=== PATIENT | female | born 1940 | race Caucasian/White ===

== ENCOUNTER 2017-11-02 08:15 | Outpatient (RCR) | payer MEDICARE, OTHER, SELFPAY ==
[2017-10-31 14:26] LABS: International Normalized Ratio 2.2; Prothrombin Time (Protime)PT. 23.8 SECONDS (11.7-14.9)
[2017-11-02 10:21] LABS: International Normalized Ratio 2.4; Prothrombin Time (Protime)PT. 25.3 SECONDS (11.7-14.9)
== END 2017-11-02 08:30 | disposition home or self-care (01) ==
LOC: MTLAB 08:15
PROVIDERS: Family Provider Family Medicine; PCP Family Medicine; Visit Provider Internal Medicine Cardiovascular Disease
DX: I48.0 Paroxysmal atrial fibrillation (principal); Z79.899 Other long term (current) drug therapy
CPT/HCPCS: 36415; 85610

== ENCOUNTER 2018-01-01 13:48 | Outpatient (RCR) | payer MEDICARE, OTHER, SELFPAY ==
[2018-01-01 15:42] LABS: International Normalized Ratio 2.5; Prothrombin Time (Protime)PT. 26.7 SECONDS (11.7-14.9)
== END 2018-01-01 14:00 | disposition home or self-care (01) ==
LOC: MTLAB 13:48
PROVIDERS: Family Provider Family Medicine; PCP Family Medicine; Visit Provider Internal Medicine Cardiovascular Disease
DX: I48.0 Paroxysmal atrial fibrillation (principal); Z79.01 Long term (current) use of anticoagulants
CPT/HCPCS: 85610

== ENCOUNTER 2018-01-30 09:10 | Outpatient (RCR) | payer MEDICARE, OTHER, SELFPAY ==
[2018-01-30 10:29] LABS: International Normalized Ratio 2.4; Prothrombin Time (Protime)PT. 26.3 SECONDS (11.7-14.9)
[2018-01-30 11:17] LABS: AST(SGOT) 30 U/L (15-37); Alanine Aminotransfer ALT/SGPT 25 U/L (13-56); Albumin, Serum 3.8 g/dL (3.2-5.0); Alkaline Phosphatase 45 U/L (45-117); Bilirubin, Direct 0.12 mg/dL (0.00-0.30); Cholesterol 268 mg/dL (200); High Density Lipoprotein 32 mg/dL; Protein, Total 7.8 g/dL (6.4-8.2); Triglycerides 260 mg/dL; Very Low Density Lipoprotein 52 mg/dL (5-40)
[2018-02-25 12:43] LABS: International Normalized Ratio 2.6; Prothrombin Time (Protime)PT. 27.9 SECONDS (11.7-14.9)
== END 2018-01-30 09:30 | disposition home or self-care (01) ==
LOC: MTLAB 09:10
PROVIDERS: Family Provider Family Medicine; PCP Family Medicine; Visit Provider Internal Medicine Cardiovascular Disease
DX: I48.0 Paroxysmal atrial fibrillation (principal); Z79.01 Long term (current) use of anticoagulants; E78.5 Hyperlipidemia, unspecified; Z79.899 Other long term (current) drug therapy
CPT/HCPCS: 36415; 80061; 80076; 85610

== ENCOUNTER → 2018-02-19 07:54 | Outpatient (CLI) | payer MEDICARE, OTHER, SELFPAY ==
--- NOTE | 2018-02-19 07:57 | BI_ITS ---
MAMMOGRAPHY - BILATERAL SCREENING 3-D ALEAH SYNTHESIS REASON FOR EXAM: Female, 77 years old. Bilateral Screening 3-D tomosynthesis PERTINENT HISTORY: No significant family history. TECHNIQUE: 2-D mammograms and 3-D Aleah synthesis of the breast (s) were performed. CAD was performed. COMPARISON: February 06, 2017. FINDINGS: The breast composition is heterogeneously dense that can obscure small breast masses. Scattered benign calcifications are seen. No dense spiculated masses or suspicious microcalcifications are identified. No architectural distortion is identified. There is no skin thickening or retraction. There has been no significant change since the prior study. BI/SCREENING MAMM (CAD), BILAT IMPRESSION: No mammographic signs of malignancy. Routine yearly mammograms recommended. ASSESSMENT CATEGORY: BIRADS Category 1: Negative. A letter regarding these results will be sent to the patient by the facility within 30 days. FOLLOW UP RECOMMENDATION: Yearly follow up mammogram recommended. (A) Approximately 10% of breast cancers are not detected by mammography. A normal mammogram should not delay biopsy of a clinically suspicious abnormality. Electronically Signed: Scott Rivera MD at 7:55 EDT , Service support ,
== END ==
PROVIDERS: Family Provider Family Medicine; PCP Family Medicine; Visit Provider Family Medicine
DX: Z12.31 Encounter for screening mammogram for malignant neoplasm of breast (principal)
CPT/HCPCS: 77063; 77067

== ENCOUNTER → 2018-03-11 16:54 | Outpatient (CLI) | payer MEDICARE, OTHER, SELFPAY ==
--- NOTE | 2018-03-11 17:00 | RAD_ITS ---
STUDY: X-RAY CHEST REASON FOR EXAM: Female, 77 years old. Trauma 2 weeks ago now with painful breathing TECHNIQUE: Frontal and lateral views of the chest. COMPARISON: 03/12/2017 FINDINGS: Median sternotomy wires. Dual-chamber pacemaker on the left. The lungs are clear and expanded. There is no demonstrated pleural abnormality. Stable cardiac silhouette. Normal mediastinum and linda. Normal visualized pulmonary arteries. Normal visualized aortic arch and descending thoracic aorta. There are diffuse degenerative changes of the visualized thoracic spine. Normal visualized ribs, clavicles, and shoulders. There is no demonstrated abnormality of the visualized soft tissue structures of the upper abdomen. RAD/Chest PA and Lateral IMPRESSION: No acute pulmonary findings. Electronically Signed: Yemi White MD at 5:39 EDT Tel , Service support ,
--- NOTE | 2018-03-11 17:01 | RAD_ITS ---
STUDY: X-RAY - UNILATERAL RIBS ( LEFT ) REASON FOR EXAM: Female, 77 years old. Trauma 2 weeks ago. TECHNIQUE: 4 view(s) of the ribs. COMPARISON: March 12, 2017 FINDINGS: There is a pacer device in place. There are sternotomy wires in place. The bones are diffusely demineralized. Normal visualized ribs without a demonstrated fracture. The visualized lung is clear and expanded. RAD/Ribs Unil 2V No CXR IMPRESSION: Within normal limits x-ray examination of the ribs. Electronically Signed: Rufina Paul MD at 8:41 EDT Tel , Service support ,
== END ==
PROVIDERS: Family Provider Family Medicine; PCP Family Medicine; Visit Provider Family Medicine
DX: S20.212A Contusion of left front wall of thorax, initial encounter (principal); X58.XXXA Exposure to other specified factors, initial encounter; R09.1 Pleurisy
CPT/HCPCS: 71046; 71100

== ENCOUNTER 2018-03-27 08:24 | Outpatient (RCR) | payer MEDICARE, OTHER, SELFPAY ==
[2018-03-27 10:24] LABS: International Normalized Ratio 2.5; Prothrombin Time (Protime)PT. 26.7 SECONDS (11.7-14.9)
== END 2018-03-27 09:00 | disposition home or self-care (01) ==
LOC: MTLAB 08:24
PROVIDERS: Family Provider Family Medicine; PCP Family Medicine; Visit Provider Internal Medicine Cardiovascular Disease
DX: I48.0 Paroxysmal atrial fibrillation (principal); Z79.01 Long term (current) use of anticoagulants
CPT/HCPCS: 36415; 85610

== ENCOUNTER → 2018-04-15 10:33 | Outpatient (CLI) | payer MEDICARE, OTHER, SELFPAY ==
[2018-04-15 12:44] LABS: BNP,B-Type NATRIURETIC PEPTIDE 298.5 pg/mL (0-100)
== END ==
PROVIDERS: Family Provider Family Medicine; PCP Family Medicine; Visit Provider Physician Assistant Medical
DX: R06.02 Shortness of breath (principal)
CPT/HCPCS: 36415; 83880

== ENCOUNTER → 2018-04-19 14:14 | Outpatient (CLI) | payer MEDICARE, OTHER, SELFPAY ==
[2018-04-19 14:22] LABS: Mucous, Urine 0 SEEN /hpf (<or=2+)
[2018-04-19 15:16] LABS: Color, Urine Yellow (Yellow); Glucose, Dipstick Normal (Normal); Ketone-Dipstick Negative (Negative); Leukocyte Esterase-Dipstick 500 /ul (Negative); Nitrite-Dipstick Negative (Negative); Occult Blood-Urine 10 /ul (Negative); Protein-Dipstick Negative (Negative); Urine Bilirubin Dipstick Negative (Negative); Urine Clarity Clear (Clear); Urine Urobilinogen Normal (Normal)
[2018-04-19 15:24] LABS: Hematocrit 39.8 % (37-47); Hemoglobin 12.8 g/dl (12.0-15.0); Mean Corp Hgb Conc 32.2 g/gl (32-36); Mean Corpuscular Hgb 30.3 pg (27.0-32.0); Mean Corpuscular Volume 94.3 fL (81-99); Mean Platelet Vol. 10.4 fl (6.2-12.0); Platelet Count 154 K/mm3 (150-450); RBC Distribution Width CV 13.8 % (11.6-14.6); RBC Distribution Width SD 47.3 fl (35.1-43.9); Red Blood Count 4.22 M/mm3 (4.2-5.4); White Blood Count 6.5 K/mm3 (4.4-11.0)
[2018-04-19 15:27] LABS: Bacteria 1+ /hpf (None Seen); Red Blood Cells-Urine 0-5 SEEN /hpf (0-5); Squamous Epithelial Cells - UA 10-25 SEEN /hpf (5-10); White Blood Cells 10-25 SEEN /hpf (0-5)
[2018-04-19 15:28] LABS: Anion Gap 6 (5-15); BUN 21 mg/dL (7-18); BUN/Creat Ratio 17.8 RATIO (10-20); Calcium,Total 9.2 mg/dL (8.5-10.1); Chloride 104 mmol/L (98-107); Creatinine, Serum 1.18 mg/dL (0.55-1.02); EST Glomerular Filtration Rate 47 mL/min (>60); Est Glom Filt Rate - Afr Amer 57 mL/min (>60); Glucose 92 mg/dL (74-106); Potassium 4.1 mmol/L (3.5-5.1); Sodium Level 138 mmol/L (136-145)
[2018-04-19 15:39] LABS: Scan Indicated on CBC? Y/N NO
[2018-04-19 15:49] LABS: International Normalized Ratio 2.6; Prothrombin Time (Protime)PT. 27.8 SECONDS (11.7-14.9)
== END ==
PROVIDERS: Family Provider Family Medicine; PCP Family Medicine; Visit Provider Nurse Practitioner Family
DX: I25.10 Atherosclerotic heart disease of native coronary artery without angina pectoris (principal); I44.2 Atrioventricular block, complete; E78.5 Hyperlipidemia, unspecified; R06.02 Shortness of breath; Z95.0 Presence of cardiac pacemaker; Z95.5 Presence of coronary angioplasty implant and graft; Z79.01 Long term (current) use of anticoagulants
CPT/HCPCS: 36415; 80048; 81001; 85027; 85610

== ENCOUNTER → 2018-04-29 11:16 | Day surgery (SDC) | payer MEDICARE, OTHER, SELFPAY ==
[2018-04-26 07:10] VITALS: BMI 29.9
[2018-04-29 11:45] LABS: Prothrombin Time Fingerstick 14.2 SEC (11.9-14.4)
--- NOTE | 2018-04-29 14:08 | CL.IE_ITS ---
Patient: KIM CAZARES Study Date: 04/29/2018 Performing: Elijah West MD : 1940 Age: 77 Gender: female PROCEDURES PERFORMED XO38-OBJGIEL REMOVAL+REPLACEMENT PACER-DUAL LEAD INDICATIONS Atrial fibrillation and complete heart block PROCEDURE DETAILS The patient was brought to the Catheterization Lab in the postabsorptive nonsedated state. Informed consent was obtained prior to the procedure. Local anesthetic was given subcutaneously to the left up per chest area with Lidocaine 2%. Incision was made to the left upper chest. PPM generator was remove d. PPM atrial lead testing performed. PPM ventricular lead testing performed. PPM ventricular lead te sting performed. PPM generator was attached to the lead(s) and inserted into the pocket. Device pocke t was irrigated with antibiotic. Subcutaneous closure was completed with 3-0 Vicryl. Skin closure was completed with 4-0 Vicryl. Steri-strips applied to left subclavicular incision. Instrument, sponge, and needle counts were noted to be normal. The patient tolerated the procedure well. 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: [employer], Model # L111 , Serial # [id number] DEVICE PARAMETERS ATRIAL LEAD PARAMETERS: P wave- 0.7 (mV) threshold- AFIB (V) impedence- 543 (OHMS) 10V test, no diaphragmatic capture VENTRICULAR LEAD PARAMETERS: R wave- PACED (mV) Current- 1.8 (mA) threshold- 0.7 (V) impedence- 400 (OHMS) 10V test, no diaphragmatic capture DEVICE PARAMETERS: Mode- DDDR Lower rate- 70 Upper rate- 130 CONCLUSIONS / RECOMMENDATIONS Device Conclusions: Successful implantation of a dual chamber pacemaker battery change and replacemen t Device Recommendations: Follow up with Primary Care Physician PROCEDURE MEDICATIONS Versed 1 mg IV Versed 1 mg IV Oxygen: 2 L/min via nasal cannula Antibiotic given in appropriate timeframe. Ancef 2 Gm IV @ 04/29/2018 13:00:15 Signed By Elijah West MD On 04/29/2018 14:08:25 Elijah West MD
== END ==
PROVIDERS: Family Provider Family Medicine; PCP Family Medicine; Visit Provider Internal Medicine Cardiovascular Disease
DX: Z45.010 Encounter for checking and testing of cardiac pacemaker pulse generator [battery] (principal); I25.10 Atherosclerotic heart disease of native coronary artery without angina pectoris; I48.2 Chronic atrial fibrillation; I10 Essential (primary) hypertension; E78.00 Pure hypercholesterolemia, unspecified; J44.9 Chronic obstructive pulmonary disease, unspecified; M19.90 Unspecified osteoarthritis, unspecified site; N39.0 Urinary tract infection, site not specified; B96.89 Other specified bacterial agents as the cause of diseases classified elsewhere; R06.02 Shortness of breath; Z79.01 Long term (current) use of anticoagulants; Z95.5 Presence of coronary angioplasty implant and graft; Z79.82 Long term (current) use of aspirin; Z79.899 Other long term (current) drug therapy; Z87.891 Personal history of nicotine dependence
CPT/HCPCS: 33228; 36416; 85610; 99152; 99153; J7040; J7050

== ENCOUNTER 2018-05-17 08:28 | Outpatient (RCR) | payer MEDICARE, OTHER, SELFPAY ==
[2018-05-09 10:17] LABS: International Normalized Ratio 1.5; Prothrombin Time (Protime)PT. 17.7 SECONDS (11.7-14.9)
[2018-05-17 10:45] LABS: International Normalized Ratio 1.9; Prothrombin Time (Protime)PT. 21.9 SECONDS (11.7-14.9)
== END 2018-05-17 10:00 ==
LOC: MTLAB 08:28
PROVIDERS: Family Provider Family Medicine; PCP Family Medicine; Visit Provider Internal Medicine Cardiovascular Disease
DX: I48.0 Paroxysmal atrial fibrillation (principal); Z79.01 Long term (current) use of anticoagulants
CPT/HCPCS: 36415; 85610

== ENCOUNTER 2018-06-27 08:39 | Outpatient (RCR) | payer MEDICARE, OTHER, SELFPAY ==
[2018-06-04 11:01] LABS: International Normalized Ratio 1.5; Prothrombin Time (Protime)PT. 17.9 SECONDS (11.7-14.9)
[2018-06-13 10:26] LABS: International Normalized Ratio 1.7; Prothrombin Time (Protime)PT. 19.9 SECONDS (11.7-14.9)
[2018-06-21 10:32] LABS: International Normalized Ratio 1.7; Prothrombin Time (Protime)PT. 19.8 SECONDS (11.7-14.9)
[2018-06-27 10:23] LABS: Prothrombin Time (Protime)PT. 22.8 SECONDS (11.7-14.9)
== END 2018-06-27 10:00 | disposition home or self-care (01) ==
LOC: MTLAB 08:39
PROVIDERS: Family Provider Family Medicine; PCP Family Medicine; Visit Provider Internal Medicine Cardiovascular Disease
DX: I48.0 Paroxysmal atrial fibrillation (principal); Z79.01 Long term (current) use of anticoagulants
CPT/HCPCS: 36415; 85610

== ENCOUNTER 2018-07-11 08:37 | Outpatient (RCR) | payer MEDICARE, OTHER, SELFPAY ==
[2018-07-11 10:10] LABS: International Normalized Ratio 2.1; Prothrombin Time (Protime)PT. 23.2 SECONDS (11.7-14.9)
== END 2018-07-11 10:00 | disposition home or self-care (01) ==
LOC: MTLAB 08:37
PROVIDERS: Family Provider Family Medicine; PCP Family Medicine; Visit Provider Internal Medicine Cardiovascular Disease
DX: I48.0 Paroxysmal atrial fibrillation (principal); Z79.01 Long term (current) use of anticoagulants
CPT/HCPCS: 36415; 85610

== ENCOUNTER → 2018-08-14 06:21 | Outpatient (CLI) | payer MEDICARE, OTHER, SELFPAY ==
--- NOTE | 2018-08-14 06:24 | ECHOD_ITS ---
Reason For Study: ATRIAL FIB-FLUTTER Procedure This was a 2D Doppler, Color Flow transthoracic echocardiogram. Exam performed in department. Left Ventricle Normal LV size. The estimated ejection fraction is 45 %. No regional wall motion abnormalities noted. Right Ventricle ICD or pacer leads identified within the right ventricle. Moderately dilated right ventricle. Normal systolic function. Atria The left atrium is moderately enlarged. The right atrium is severely enlarged. ICD or pacer leads identified within the right atrium. Mitral Valve There is mild to moderate mitral annular calcification. Mild-Moderate (1-2+) eccentric mitral valve insufficiency. Tricuspid Valve Normal tricuspid valve. Moderately severe (3+) tricuspid valve insufficiency. Pulmonary artery systolic pressure is 27 mmHg. Aortic Valve Trisinus/trileaflet aortic valve. Mild focal aortic valve calcification. Peak aortic valve gradient 16 mmHg. Mean aortic valve gradient 9 mmHg. Mild aortic stenosis. Calculated aortic valve area (continuity equation) is 1.4 cm2. Mild (1+) eccentric aortic valve insufficiency. Great Vessels Normal aortic root. The pulmonary artery is normal size. Pericardium/Pleural No pericardial effusion. MMode/2D Measurements & Calculations LVIDd: 3.9 cm IVSd: 1.1 cm LVOT diam: 2.0 cm LVIDs: 2.8 cm LVPWd: 1.2 cm LVOT area: 3.1 cm2 RVDd: 3.9 cm FS: 28.0 % Ao root diam: 3.4 cm LAV(MOD-bp): 124.3 ml LVAd ap4: 26.4 cm2 LA dimension: 4.4 cm LAV(MOD-bp) Indexed: 62.4 ml/m2 EDV(MOD-sp4): 78.1 ml LAV(MOD-sp2): 115.0 ml EDV(sp4-el): 79.5 ml LAV(MOD-sp4): 119.1 ml LVAs ap4: 17.4 cm2 ESV(MOD-sp4): 37.6 ml ESV(sp4-el): 37.6 ml EF(MOD-sp4): 51.9 % EF(sp4-el): 52.7 % SV(MOD-sp4): 40.5 ml SV(sp4-el): 41.9 ml LA A4 area: 33.8 cm2 RA A4 area: 40.0 cm2 Time Measurements MV dec time: 0.19 sec Doppler Measurements & Calculations MV E max umer: 136.5 cm/sec Lat Peak E' Umer: 4.0 cm/sec Med Peak E' Umer: 6.7 cm/sec MV A max umer: 65.9 cm/sec E/E' lat: 34.1 E/E' med: 20.3 MV E/A: 2.1 Ao V2 max: 204.2 cm/sec AI max umer: 443.4 cm/sec LV V1 max: 96.1 cm/sec Ao max P.7 mmHg AI max P.6 mmHg LV V1 max P.7 mmHg Ao V2 mean: 139.4 cm/sec AI dec slope: 234.6 cm/sec2 LV V1 mean P.9 mmHg Ao mean P.9 mmHg AI P1/2t: 553.6 msec LV V1 mean: 65.3 cm/sec Ao V2 VTI: 43.5 cm LV V1 VTI: 20.8 cm FINN(I,D): 1.5 cm2 FINN(V,D): 1.4 cm2 SV(LVOT): 63.7 ml PA V2 max: 83.1 cm/sec TR max umer: 242.3 cm/sec TR max P.5 mmHg Interpretation Summary Normal LV size. The estimated ejection fraction is 45 %. No regional wall motion abnormalities noted. The left atrium is moderately enlarged. The right atrium is severely enlarged. Mild-Moderate (1-2+) eccentric mitral valve insufficiency. Mild aortic stenosis. Ordering Physician: ELIJAH ARREOLA Referring Physician: TODD CARBAJAL
--- NOTE | 2018-08-14 09:21 | STRESSREP ---
Stress Test Report Pharmacologic myocardial perfusion stress test. 78-year-old lady with a history of cardiomyopathy. Stress protocol: Resting EKG demonstrates atrial fibrillation with a rate of 70 bpm status post pacemaker placement. 0.4 mg of regadenoson was infused per usual protocol followed by rapid intravenous saline flush injection continuous quality assurance monitor body was performed the maximum heart rate attained was 71 bpm which was 49% maximum predicted heart rate the maximum workload was 1 metabolic equivalent. Patient maintained atrial fibrillation with a paced rhythm throughout the recording. At rest there were no ST or T wave changes noted suggest abnormal flow reserve at peak infusion no ST or T wave changes were noted suggest abnormal flow reserve. The resting blood pressure 118/86 with a final blood pressure 118/76. Myocardial perfusion protocol. 14.1 mCi of technetium 99m sestamibi was injected at rest. 0.4 mg of regadenoson was infused per usual protocol peak infusion 44.7 mCi of technetium 99m sestamibi was injected stress images were obtained stress and rest images were reconstructed and compared in the short axis vertical long horizontal long axis. Gated images were also obtained Perfusion SPECT analysis: Review of the stress images demonstrate normal uptake of tracer noted in all areas of the myocardium. The resting images similarly demonstrate normal uptake of tracer noted in all areas of the myocardium. No areas of reversibility are noted suggest ischemia. Gated SPECT analysis: The gated ejection fraction is noted to be 63%. Conclusion: Normal pharmacologic myocardial perfusion stress test. Preserved ejection fraction.
== END ==
PROVIDERS: Family Provider Family Medicine; PCP Family Medicine; Referring Provider Internal Medicine Cardiovascular Disease; Visit Provider Internal Medicine Cardiovascular Disease
DX: I10 Essential (primary) hypertension (principal); I42.9 Cardiomyopathy, unspecified; R06.00 Dyspnea, unspecified; Z79.01 Long term (current) use of anticoagulants; Z95.0 Presence of cardiac pacemaker
CPT/HCPCS: 78452; 93017; 93306; A9500; A4216; J2785

== ENCOUNTER → 2018-08-15 16:28 | Outpatient (CLI) | payer MEDICARE, OTHER, SELFPAY ==
--- NOTE | 2018-08-15 16:30 | RAD_ITS ---
STUDY: X-RAY CHEST REASON FOR EXAM: Female, 78 years old. Dyspnea on exertion. TECHNIQUE: Frontal and lateral views of the chest. # of Images: 2 COMPARISON: March 11, 2018 FINDINGS: There is no new focal consolidation. Sternal cerclage wires are present from a prior sternotomy. There is cardiomegaly. Normal mediastinum and linda. Normal visualized pulmonary arteries. There is atherosclerotic calcification of the aortic arch with tortuosity. Normal visualized thoracic spine. Normal visualized ribs, clavicles, and shoulders. There is no demonstrated abnormality of the visualized soft tissue structures of the upper abdomen. RAD/Chest PA and Lateral IMPRESSION: Cardiomegaly. Electronically Signed: Rufina Paul MD at 17:17 EDT Tel , Service support ,
[2018-08-15 17:47] LABS: Absolute Lymphocyte Count 1.35 X10^3/ul (0.83-4.51); Absolute Neutrophil Count 3.6 X10^3/uL (2.0-7.7); Basophil# 0.02 X10^3/uL; Basophil% 0.3 % (0-1); Eosinophil# 0.13 X10^3/uL; Eosinophils% 2.1 % (0-5); Hemoglobin 11.4 g/dl (12.0-15.0); Lymphocyte # 1.35 X10^3/ul (4.0); Lymphocyte % 21.8 % (19-41); Mean Corp Hgb Conc 31.7 g/gl (32-36); Mean Corpuscular Hgb 30.2 pg (27.0-32.0); Mean Corpuscular Volume 95.5 fL (81-99); Mean Platelet Vol. 10.8 fl (6.2-12.0); Monocyte# 1.05 X10^3/uL; Monocyte% 16.9 % (0-10); Neutrophil # 3.64 X10^3/uL (2.7-7.7); Neutrophil % 58.7 % (47-70); Platelet Count 121 K/mm3 (150-450); RBC Distribution Width CV 14.5 % (11.6-14.6); RBC Distribution Width SD 49.4 fl (35.1-43.9); Red Blood Count 3.77 M/mm3 (4.2-5.4); White Blood Count 6.2 K/mm3 (4.4-11.0)
[2018-08-15 17:53] LABS: POSITIVE COUNT NO; POSITIVE DIFFERENTIAL NO; POSITIVE MORPHOLOGY NO
[2018-08-15 18:01] LABS: Anion Gap 7 (5-15); BUN 20 mg/dL (7-18); BUN/Creat Ratio 20.2 RATIO (10-20); Calcium,Total 8.8 mg/dL (8.5-10.1); Chloride 105 mmol/L (98-107); Creatinine, Serum 0.99 mg/dL (0.55-1.02); EST Glomerular Filtration Rate 58 mL/min (>60); Est Glom Filt Rate - Afr Amer 70 mL/min (>60); Glucose 94 mg/dL (74-106); Potassium 3.7 mmol/L (3.5-5.1); Sodium Level 141 mmol/L (136-145)
== END ==
PROVIDERS: Family Provider Family Medicine; PCP Family Medicine; Referring Provider Physician Assistant Medical; Visit Provider Physician Assistant Medical
DX: I25.10 Atherosclerotic heart disease of native coronary artery without angina pectoris (principal); I11.9 Hypertensive heart disease without heart failure; R06.09 Other forms of dyspnea
CPT/HCPCS: 36415; 71046; 80048; 83880; 85025

== ENCOUNTER 2018-08-20 09:17 | Emergency (ER) | payer MEDICARE, OTHER, SELFPAY ==
[2018-08-20 09:18] VITALS: BP 153/86; PULSE 70; RESP 20; TEMP 36.6; O2SAT 98; BMI 29.7
--- NOTE | 2018-08-20 09:33 | EKG12_ITS ---
Test Reason : OTHER PAIN Blood Pressure : / mmHG Vent. Rate : 071 BPM Atrial Rate : 052 BPM P-R Int : 000 ms QRS Dur : 166 ms QT Int : 490 ms P-R-T Axes : 000 -87 083 degrees QTc Int : 532 ms Ventricular-paced rhythm with occasional Premature ventricular complexes Abnormal ECG Confirmed by JAIRON OLIVIA, LETICIA ([id number]), tape editor VALENTINE GASTELUM ([id number]) on 08/21/2018 1:32:23 PM Referred By: SIMONA Confirmed By:LETICIA DE LA O MD
--- NOTE | 2018-08-20 09:36 | ED.VISSUMM ---
- ER Visit Summary Date of Service: 08/20/18 Chief Complaint: Neck and back pain History of Present Illness: The patient is a 78 F who states that last night after going out to dinner she developed the pain on the right side of her neck going down her back to by her shoulder blade area. She states that she does not recall doing anything. She wonders if she swallowed something and it still there. She has not had any drooling or inability to keep liquids down. Patient states there is no significant pain with movement of her arm but there is discomfort with movement of the neck. No fevers. Physical Examination: Afebrile vital signs stable Gen: Well-nourished well-developed Head: Normocephalic atraumatic Eyes: Perrl EOMI ENT: TMs clear no rhinorrhea moist mucous membranes Neck: Supple no lymphadenopathy no JVD nontender CVS: Regular rate rhythm no murmurs normal S1-S2 Respiratory: No distress clear to auscultation bilaterally chest nontender Abdomen: Soft nontender nondistended normal bowel sounds no masses Back: Patient has tenderness to palpation along the trapezius muscle on the right particularly just lateral to midline as well as in the rhomboid area. There is no rash noted. Extremity: Nontender no edema Skin: Normal color no rash Neuro: alert orientated ?3 CN II-XII intact normal strength sensation reflexes gait cerebellar Psych: Normal affect normal mood Test Results: EKG demonstrates a ventricular paced rhythm with a PVC. CBC and chemistry showed a creatinine 1.01 and glucose of 112. Liver enzymes total bilirubin of 1.2. INR subtherapeutic at 1.8 and troponin less than 0.015. Emergency Department Course and Treatment: Due to a subtherapeutic INR with her history a CT Radha of the chest was done to rule out pulmonary embolism no obvious pulmonary embolism was noted. Patient had has radiographic evidence of pulmonary hypertension. She tells me she is following up to have pulmonary function testing done recently had what sounds like an echocardiogram. I think the patient's pain is most consistent with a trapezius muscle spasm. It is reproducible. It is in the distribution of the trapezius muscle. Patient will use Tylenol and heat and gentle stretching follow-up with her doctors. She was advised to call her doctor for follow-up with her INR and to take an extra dose of her Coumadin tonight. The patient does note that her INR is very up and down and she has a hard time managing it and she is not 100% sure of what dosing she is on. Impression: 1. Trapezius muscle spasm 2. Subtherapeutic INR This note was generated with [employer] dictation software. It may contain incorrect words, spelling, and punctuation that were not noted in review of the chart prior to signing ED Disposition - Plan for ED Patient: Disposition: Home or Assisted Living Chief Complaint: Other, Pain/Inj Instructions: ED Spasm Back No Trauma Referrals: Davis Lopez DO [Primary Care Provider] - 3-5 Days if not improving
[2018-08-20 09:57] LABS: Absolute Lymphocyte Count 1.27 X10^3/ul (0.83-4.51); Absolute Neutrophil Count 5.7 X10^3/uL (2.0-7.7); Basophil# 0.03 X10^3/uL; Basophil% 0.4 % (0-1); Eosinophil# 0.11 X10^3/uL; Eosinophils% 1.3 % (0-5); Hematocrit 39.4 % (37-47); Hemoglobin 12.7 g/dl (12.0-15.0); International Normalized Ratio 1.8; Lymphocyte # 1.27 X10^3/ul (4.0); Lymphocyte % 15.5 % (19-41); Mean Corp Hgb Conc 32.2 g/gl (32-36); Mean Corpuscular Hgb 30.7 pg (27.0-32.0); Mean Corpuscular Volume 95.2 fL (81-99); Mean Platelet Vol. 10.3 fl (6.2-12.0); Monocyte# 1.11 X10^3/uL; Monocyte% 13.5 % (0-10); Neutrophil # 5.66 X10^3/uL (2.7-7.7); Neutrophil % 68.8 % (47-70); Platelet Count 138 K/mm3 (150-450); Prothrombin Time (Protime)PT. 21.3 SECONDS (11.7-14.9); RBC Distribution Width CV 14.3 % (11.6-14.6); RBC Distribution Width SD 46.8 fl (35.1-43.9); Red Blood Count 4.14 M/mm3 (4.2-5.4); White Blood Count 8.2 K/mm3 (4.4-11.0)
[2018-08-20 09:58] LABS: POSITIVE COUNT NO; POSITIVE DIFFERENTIAL NO; POSITIVE MORPHOLOGY NO
[2018-08-20 10:09] LABS: ALB/GLOB Ratio 0.9 RATIO (0.9-2.4); AST(SGOT) 24 U/L (15-37); Alanine Aminotransfer ALT/SGPT 24 U/L (13-56); Albumin, Serum 3.8 g/dL (3.2-5.0); Alkaline Phosphatase 74 U/L (45-117); Anion Gap 8 (5-15); BUN 19 mg/dL (7-18); BUN/Creat Ratio 18.8 RATIO (10-20); Calcium,Total 9.1 mg/dL (8.5-10.1); Chloride 103 mmol/L (98-107); Creatinine, Serum 1.01 mg/dL (0.55-1.02); EST Glomerular Filtration Rate 56 mL/min (>60); Est Glom Filt Rate - Afr Amer 68 mL/min (>60); Estimated Creatinine Clearance 45.36 ml/min; Globulin 4.2 g/dL (2.2-4.2); Glucose 112 mg/dL (74-106); Lipase 258 U/L (73-393); Potassium 3.8 mmol/L (3.5-5.1); Sodium Level 139 mmol/L (136-145)
--- NOTE | 2018-08-20 10:19 | CT_ITS ---
STUDY: CTA CHEST REASON FOR EXAM: Female, 78 years old. Right neck pain. CABG, pacer, shortness of breath. RADIATION DOSAGE (If Supplied By Facility): CTDIvol = ( 18.50 ) mGy, DLP = ( 745.25 ) mGycm TECHNIQUE: The examination was performed with the intravenous administration of 100ml ml of Isovue 370 contrast material. Post-processing of the angiographic images was performed, with multiplanar reformation and 3D reconstruction. Individualized dose optimization techniques were used for this CT. COMPARISON: Chest x-ray 08/15/2018 FINDINGS: Supraclavicular: No acute process. Thoracic body wall soft tissues: No acute process. Upper abdomen: Limited dilation, no acute process. Osseous structures: Median sternotomy, osteopenia, mild kyphoscoliosis and thoracic spondylosis. Mediastinum: There is mild thickening of the wall of the middle and distal 3rd of the esophagus which could reflect the presence of reflux esophagitis. Correlate for any symptoms of GERD. Subcarinal lymph node to the right side of the esophagus measuring about 15 mm short axis, enlarged. A few small lymph nodes are present as well. Lungs: Small layering right pleural effusion, mild right lung base atelectasis, generalized hyperlucency suggesting underlying COPD without boris features of centrilobular or paraseptal emphysema. Unremarkable airways. No suspicious focal lesions. Heart: Moderate cardiomegaly with ectasia in particular of the right atrium and right ventricle. There is ectasia of the intracardiac IVC and hepatic veins, and of the SVC and a pattern consistent with elevated right heart pressures. Three-vessel coronary calcifications. Mitral valve annulus calcifications and aortic valve annulus and leaflets calcifications. Aorta: Nondilated, moderate arch atherosclerosis. Pulmonary arteries: Mildly ectatic central pulmonary arteries, main pulmonary artery 3.1 cm. There is no large central pulmonary embolus and there is no convincing evidence of acute peripheral pulmonary embolus. CT/CTA Chest W/WO Contrast IMPRESSION: Small right pleural effusion. There are no other features of pulmonary edema. Prominent enlargement of the right heart, vena cava, hepatic veins, evidence of elevated right heart pressures. Mild ectasia of the central pulmonary arteries. There is no evidence of acute pulmonary embolism. Electronically Signed: Maico Arenas, at 11:26 EDT Tel , Service support ,
[2018-08-20 10:59] VITALS: BP 146/81; PULSE 70; RESP 18; O2SAT 96
[2018-08-20 12:09] VITALS: BP 141/98; PULSE 70; RESP 26; O2SAT 97
== END 2018-08-20 12:10 | disposition home or self-care (01) ==
PROVIDERS: Emergency Provider Emergency Medicine; Family Provider Family Medicine; PCP Family Medicine
DX: M62.830 Muscle spasm of back (principal); I25.10 Atherosclerotic heart disease of native coronary artery without angina pectoris; I48.0 Paroxysmal atrial fibrillation; I10 Essential (primary) hypertension; F32.9 Major depressive disorder, single episode, unspecified; Z95.0 Presence of cardiac pacemaker; Z95.1 Presence of aortocoronary bypass graft; Z79.01 Long term (current) use of anticoagulants; Z87.891 Personal history of nicotine dependence; Z79.82 Long term (current) use of aspirin; Z79.899 Other long term (current) drug therapy
CPT/HCPCS: 71275; 80053; 83690; 84484; 85025; 85610; 93005; 99284; Q9967; A4216

== ENCOUNTER 2018-08-22 08:36 | Outpatient (RCR) | payer MEDICARE, OTHER, SELFPAY ==
[2018-08-01 10:17] LABS: International Normalized Ratio 3.6
[2018-08-08 10:32] LABS: International Normalized Ratio 2.5; Prothrombin Time (Protime)PT. 27.1 SECONDS (11.7-14.9)
[2018-08-22 10:25] LABS: Prothrombin Time (Protime)PT. 22.7 SECONDS (11.7-14.9)
== END 2018-08-22 10:00 | disposition home or self-care (01) ==
LOC: MTLAB 08:36
PROVIDERS: Family Provider Family Medicine; PCP Family Medicine; Referring Provider Internal Medicine Cardiovascular Disease; Visit Provider Internal Medicine Cardiovascular Disease
DX: I48.0 Paroxysmal atrial fibrillation (principal); Z79.01 Long term (current) use of anticoagulants
CPT/HCPCS: 36415; 85610

== ENCOUNTER → 2018-08-23 07:41 | Outpatient (CLI) | payer MEDICARE, OTHER, SELFPAY ==
--- NOTE | 2018-08-25 06:36 | PFT ---
INTRODUCTION: The patient is a 78-year-old female that presents for pulmonary function testing secondary to a diagnosis of dyspnea on exertion. Respiratory therapy reports good patient effort. Bronchodilators were used during testing. INTERPRETATION: Forced expiration spirometry demonstrates the presence of a mild large airways obstructive ventilatory defect. There was no significant response to aerosolized bronchodilators. Spirograms are of fair quality do not plateau indicating slow emptying of the lungs. Body plethysmography was performed and reveals an elevated RV to 149% of predicted, indicative of underlying air trapping. Diffusing capacity by single breath CO is within normal limits at 82% of predicted. When compared to previous pulmonary function studies dated February 2012, there has been a 9% reduction in FEV1 and a 10% reduction in DLCO. IMPRESSION: These pulmonary function studies demonstrate the presence of an irreversible mild large airways obstructive ventilatory defect with associated air trapping and preserved diffusing capacity.
== END ==
PROVIDERS: Family Provider Family Medicine; PCP Family Medicine; Referring Provider Physician Assistant Medical; Visit Provider Physician Assistant Medical
DX: R06.09 Other forms of dyspnea (principal)
CPT/HCPCS: 94060; 94726; 94729

== ENCOUNTER → 2018-09-05 08:35 | Outpatient (CLI) | payer MEDICARE, OTHER, SELFPAY ==
[2018-09-05 10:39] LABS: Prothrombin Time (Protime)PT. 22.7 SECONDS (11.7-14.9)
[2018-09-05 10:50] LABS: AST(SGOT) 22 U/L (15-37); Alanine Aminotransfer ALT/SGPT 25 U/L (13-56); Albumin, Serum 3.8 g/dL (3.2-5.0); Alkaline Phosphatase 60 U/L (45-117); Bilirubin, Direct 0.23 mg/dL (0.00-0.30); Cholesterol 115 mg/dL (200); Globulin 3.9 g/dL (2.2-4.2); High Density Lipoprotein 32 mg/dL; Protein, Total 7.7 g/dL (6.4-8.2); Triglycerides 147 mg/dL; Very Low Density Lipoprotein 29 mg/dL (5-40)
[2018-09-05 11:04] LABS: Anion Gap 6 (5-15); BUN 26 mg/dL (7-18); BUN/Creat Ratio 27.1 RATIO (10-20); Calcium,Total 8.9 mg/dL (8.5-10.1); Chloride 105 mmol/L (98-107); Creatinine, Serum 0.96 mg/dL (0.55-1.02); EST Glomerular Filtration Rate 60 mL/min (>60); Est Glom Filt Rate - Afr Amer 73 mL/min (>60); Glucose 95 mg/dL (74-106); Sodium Level 139 mmol/L (136-145)
== END ==
PROVIDERS: Physician Assistant Medical; Family Provider Family Medicine; PCP Family Medicine; Referring Provider Internal Medicine Cardiovascular Disease; Visit Provider Internal Medicine Cardiovascular Disease
DX: I48.0 Paroxysmal atrial fibrillation (principal); I42.9 Cardiomyopathy, unspecified; E78.5 Hyperlipidemia, unspecified; Z79.01 Long term (current) use of anticoagulants; Z79.899 Other long term (current) drug therapy
CPT/HCPCS: 36415; 80048; 80061; 80076; 85610

== ENCOUNTER 2018-09-23 08:58 | Outpatient (RCR) | payer MEDICARE, OTHER, SELFPAY ==
[2018-09-17 11:47] VITALS: BMI 29.7
[2018-09-23 10:24] LABS: Prothrombin Time (Protime)PT. 22.7 SECONDS (11.7-14.9)
== END 2018-09-23 09:00 | disposition home or self-care (01) ==
LOC: MTLAB 08:58
PROVIDERS: Family Provider Family Medicine; PCP Family Medicine; Referring Provider Internal Medicine Cardiovascular Disease; Visit Provider Internal Medicine Cardiovascular Disease
DX: I48.0 Paroxysmal atrial fibrillation (principal); Z79.01 Long term (current) use of anticoagulants
CPT/HCPCS: 36415; 85610

== ENCOUNTER 2018-12-29 01:21 | Inpatient (IN) | payer MEDICARE, OTHER, SELFPAY ==
[2018-09-17 11:47] VITALS: BMI 29.7
[2018-12-29] VITALS (9 sets, daily range): BP systolic 108–155; BP diastolic 52–67; PULSE 68–71; RESP 16–18; TEMP 36.6–37.1; O2SAT 94–98; BMI 31.5; BMI 31.1
--- NOTE | 2018-12-29 01:39 | RAD_ITS ---
STUDY: X-RAY CHEST REASON FOR EXAM: Female, 78 years old. Left-sided chest pain status post fall TECHNIQUE: Single AP portable view of the chest. COMPARISON: 08/15/2018 FINDINGS: The lungs are clear and expanded. There is no demonstrated pleural abnormality. Mild cardiomegaly, unchanged. Median sternotomy wires and coronary artery bypass graft clips noted. Left subclavian pacemaker in place. Normal mediastinum and linda. Normal visualized pulmonary arteries. There is atherosclerotic calcification of the aortic arch . There are diffuse degenerative changes of the visualized thoracic spine. Normal visualized ribs, clavicles, and shoulders. There is no demonstrated abnormality of the visualized soft tissue structures of the upper abdomen. RAD/Chest 1 View (Portable) IMPRESSION: Stable mild cardiomegaly Electronically Signed: Todd Sargent MD at 2:30 EST Tel , Service support ,
--- NOTE | 2018-12-29 01:39 | RAD_ITS ---
STUDY: X-RAY - LEFT HIP REASON FOR EXAM: Female, 78 years old. Left hip pain status post fall TECHNIQUE: 2 views of the hip. COMPARISON: None. FINDINGS: Left hip is in normal alignment with mild degenerative change. Visualized left femur is unremarkable. The right hip is in normal alignment. Minimal degenerative spurring. Visualized right femur is normal. The sacrum is intact. There is degenerative change of the visualized lower lumbar spine. Bilateral iliac wings and right pubic rami are intact. There are acute fractures of the left superior and inferior pubic rami. Bilateral ischial tuberosities are intact. Soft tissues are normal. RAD/HIP, UNI W/ Pelvis 2-3 Views IMPRESSION: 1. Left superior and inferior pubic rami fractures. 2. Mild bilateral hip osteoarthritic change, left greater than right. Electronically Signed: Todd Sargent MD at 2:33 EST Tel , Service support ,
[2018-12-29] MEDS: Ondansetron 4 MG/2 ML Vial IV (01:51)
[2018-12-29] MEDS: Morphine 4 MG/ML Syringe IV (01:52)
--- NOTE | 2018-12-29 02:10 | ED.VISSUMM ---
- ER Visit Summary Date of Service: 12/29/18 Chief Complaint: Hip pain History of Present Illness: The patient is a 78 F presents to the emergency department hip pain. The patient was recently vacationing in [place]. She had mechanical fall in a parking lot. She had a fracture in her pelvis and fracture of her wrist. She is been on oral analgesics with little improvement. She actually just flew back tonight to the [facility] where she lives. She states she has been unable to control her pain and unable to ambulate because of it. She was very interested in a rehab stay. The patient does take Coumadin for history of atrial fibrillation. She has been off of it since . She did have her wrist fracture casted by orthopedics. She was also told that her pelvic fracture was nonoperative. She is just concerned because even with the medications, she is having a difficult time caring for herself. Physical Examination: Vital signs reviewed General: Well-nourished, well-developed Head: Normocephalic, atraumatic Eyes: Pupils equal and reactive, extraocular muscles intact Neck, supple, no lymphadenopathy Heart: Regular rate and rhythm Respiratory: No distress, clear bilaterally Abdomen: Soft, nontender, nondistended, no peritoneal signs Back: Nontender Extremities: Nontender, no edema, no cords Skin: Normal color no rash Neuro: Alert and oriented, no focal or lateralizing deficits Test Results: [] Emergency Department Course and Treatment: [I was unable to load the plain films of the patient's wrist on 3 separate computers. I did repeat the x-rays of the pelvis. These do demonstrate minimally displaced inferior and superior pubic rami fractures. Her labs are unremarkable. I do feel that the patient is likely going to need a short-term rehab as she has a broken wrist and broken pelvis. She is having a difficult time walking around. She is also on Coumadin for history of atrial fibrillation and is a fall risk with her fractures. Patient was discussed with the hospitalist will be admitted at this time.] Treatment Plan: [] Disposition: Admission Impression: 1. Left wrist fracture 2. Left inferior and superior pubic rami fracture This note was generated with [employer] dictation software. It may contain incorrect words, spelling, and punctuation that were not noted in review of the chart prior to signing ED Disposition - Plan for ED Patient: Referrals: Davis Lopez DO [Primary Care Provider] -
[2018-12-29 02:13] LABS: Absolute Lymphocyte Count 0.92 X10^3/ul (0.83-4.51); Absolute Neutrophil Count 5.9 X10^3/uL (2.0-7.7); Basophil# 0.02 X10^3/uL; Basophil% 0.2 % (0-1); Eosinophil# 0.11 X10^3/uL; Eosinophils% 1.3 % (0-5); Hemoglobin 11.9 g/dl (12.0-15.0); Lymphocyte # 0.92 X10^3/ul (4.0); Lymphocyte % 11.2 % (19-41); Mean Corp Hgb Conc 32.2 g/gl (32-36); Mean Corpuscular Hgb 30.7 pg (27.0-32.0); Mean Corpuscular Volume 95.6 fL (81-99); Mean Platelet Vol. 9.6 fl (6.2-12.0); Monocyte# 1.17 X10^3/uL; Monocyte% 14.3 % (0-10); Neutrophil # 5.93 X10^3/uL (2.7-7.7); Neutrophil % 72.6 % (47-70); Platelet Count 214 K/mm3 (150-450); RBC Distribution Width CV 14.5 % (11.6-14.6); RBC Distribution Width SD 50.3 fl (35.1-43.9); Red Blood Count 3.87 M/mm3 (4.2-5.4); White Blood Count 8.2 K/mm3 (4.4-11.0)
[2018-12-29 02:16] LABS: POSITIVE COUNT NO; POSITIVE DIFFERENTIAL NO; POSITIVE MORPHOLOGY NO
[2018-12-29 02:21] LABS: ALB/GLOB Ratio 0.9 RATIO (0.9-2.4); AST(SGOT) 23 U/L (15-37); Alanine Aminotransfer ALT/SGPT 18 U/L (13-56); Albumin, Serum 3.7 g/dL (3.2-5.0); Alkaline Phosphatase 64 U/L (45-117); Anion Gap 9 (5-15); BUN 29 mg/dL (7-18); BUN/Creat Ratio 27.9 RATIO (10-20); Calcium,Total 9.1 mg/dL (8.5-10.1); Chloride 103 mmol/L (98-107); Creatinine, Serum 1.04 mg/dL (0.55-1.02); EST Glomerular Filtration Rate 55 mL/min (>60); Est Glom Filt Rate - Afr Amer 66 mL/min (>60); Globulin 4.1 g/dL (2.2-4.2); Glucose 122 mg/dL (74-106); Protein, Total 7.8 g/dL (6.4-8.2); Sodium Level 138 mmol/L (136-145)
[2018-12-29 02:33] LABS: International Normalized Ratio 1.6; Prothrombin Time (Protime)PT. 18.5 SECONDS (11.7-14.9)
--- NOTE | 2018-12-29 03:24 | PCM.HP.STD ---
Problem List (1) Complete heart block Status: Chronic (2) Presence of cardiac pacemaker Status: Chronic (3) Benign hypertension Status: Chronic (4) Hx of CABG Status: Chronic Comment: for Ablation Complication (5) CAD (coronary artery disease) Status: Chronic Qualifiers: Comment: S/P to proximal and ostial RCA stent in June 2009; (6) COPD (chronic obstructive pulmonary disease) Status: Chronic (7) HLD (hyperlipidemia) Status: Chronic Qualifiers: (8) Paroxysmal atrial fibrillation Status: Chronic History of Present Illness Date of Admission: 12/29/18 Chief Complaint: Left hip pain, recent fall. The patient is a 78 year old F with past medical history as mentioned above presented to the emergency room because of left hip pain. Patient was in [place] for vacation over the last week, had a mechanical fall in the parking lot and she went to emergency room back in [place] and she was found to have left wrist fracture as well as was and she was given oral analgesics and she was discharged home. Tonight, [place] flew back from [place] and she came to the emergency room. Her main presenting complaint today is the left hip pain which has been going on for since she had a fall 6 days ago, pain comes on only when she is standing or walking, sharp pain, 10 out of 10 in severity, not radiating, aggravated by putting weight on his feet as well as walking, relieved by rest and without significant associated symptoms. Also, she complained of left wrist pain that has been going on for the same duration. Back in [place], she had a cast put on her left wrist by orthopedics and she was informed that her pelvic fracture was nonoperative. In the emergency department, her blood pressure was slightly elevated, other vital signs were stable. Her routine blood work was remarkable for hemoglobin of 11.9 g/dL, BUN of 29 which is chronic, otherwise normal. LFT was normal. INR was 1.6. X-ray of the hip and pelvis revealed left superior and inferior pubic rami fractures. Chest x-ray showed no acute findings, showed mild cardiomegaly. She is being admitted for intractable pelvic pain due to left superior and inferior pubic rami fractures as well as left wrist fracture and patient will probably need placement to [facility]. Past Medical History Past Medical History (Chronic Problems): Chronic Problems (Last Reviewed 11/20/18 @ 12:13 by Elijah West MD) Cardiomyopathy (Chronic) EF 45% Complete heart block (Chronic) Presence of cardiac pacemaker (Chronic) longterm (current) use of anticoagulants (Chronic) Benign hypertension (Chronic) Hx of CABG (Chronic) for Ablation Complication CAD (coronary artery disease) (Chronic) S/P to proximal and ostial RCA stent in June 2009; COPD (chronic obstructive pulmonary disease) (Chronic) HLD (hyperlipidemia) (Chronic) Osteoarthritis (Chronic) History of prior ablation treatment (Chronic) 2008 History of coronary artery stent placement (Chronic) S/P stent to proximal and ostial RCA stent in June 2009; Paroxysmal atrial fibrillation (Chronic) Medical History: Medical History (Last Reviewed 09/17/18 @ 12:13 by Elijah West MD) Cardiomyopathy (Chronic) I42.9 EF 45% Complete heart block (Chronic) I44.2 Presence of cardiac pacemaker (Chronic) 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 [Ecotrin] 81 mg PO DAILY@0800 09/08/14 ipratropium bromide 42 mcg (0.06 See Protocol INTRANASAL DAILY 10/31/17 %) nasal spray Days #15 levothyroxine 100 mcg tablet 100 mcg PO QDAY 04/19/18 lisinopril 5 mg tablet 5 mg PO DAILY #90 tab 07/23/18 sertraline 50 mg tablet 50 mg PO DAILY 07/23/18 Atorvastatin Calcium [Lipitor] 40 mg PO QHS 08/20/18 Warfarin [Coumadin] 6 mg PO DAILY 08/20/18 spironolactone 25 mg tablet 25 mg PO DAILY #90 tab 10/03/18 torsemide 10 mg tablet 10 mg PO BID #180 tab 10/03/18 metoprolol tartrate 50 mg tablet 25 mg PO BID #90 tab 10/04/18 Surgical History: Surgical History (Last Reviewed 09/17/18 @ 12:13 by Elijah West MD) Hx of CABG (Chronic) for Ablation Complication History of prior ablation treatment (Chronic) Z98.890 2008 History of coronary artery stent placement (Chronic) Z95.5 S/P stent to proximal and ostial RCA stent in June 2009; Surgical History: appendectomy, coronary bypass surgery, , stents Psychiatric History: No pertinent psych hx 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 pertinent MICROPALEONTOLOGIST history Lives: Alone Smoking Status: Former smoker Alcohol: None Drugs: None - *Family History Maternal History Items: No pertinent history Paternal History Items: No pertinent history Review of Systems Constitutional: Denies: Anorexia, Chills, Fever, Weakness Eyes: Denies: Blurred vision, Double vision, Drainage, Redness HEENT: Denies: Difficulty Hearing, Ear Pain, Eye Pain, Nasal Congestion, Sore Throat Cardiovascular: Denies: Chest Pain, Chest Pressure, Chest Tightness, Edema, Heaviness, Palpitations Respiratory: Denies: Cough, Hemoptysis, Pleuritic Pain, Shortness of Breath, Sputum production, Wheezing Gastrointestinal: Denies: Abdominal Pain, Constipation, Diarrhea, Nausea, Vomiting Genitourinary: Denies: Dysuria, Frequency, Hematuria Musculoskeletal: Reports: Arm Pain, Joint Pain Skin: Denies: Dryness, Rash Neurological: Denies: Balance problems, Double vision, Change in Speech, Slurred speech, Confusion, Headaches, Incoordination, Numbness, Tingling Psychiatric: Denies: Anxiety, Depression Endocrine: Denies: Change in Body Habitus, Polydipsia VTE Information - Inpt Only VTE Present on Admission: No VTE Mechan Device Prophylaxis: None VTE Pharm Prophylaxis ordered?: No - Physical Exam General: Alert, Oriented x3, Cooperative, No apparent distress HEENT: Atraumatic, PERRLA, EOMI, Normocephalic Oral: Moist Mucosa, No Gingival or Mucosal Lesions/ Ulcerations Neck: Supple, No JVD, Negative Carotid Bruits, Trachea Midline, Thyroid Normal Size and Texture Lungs: Clear to auscultation, No rhonchi, No wheeze, No rales, Diminished Cardiovascular: Regular Rhythm, Normal S1, Normal S2, PMI Normal Abdomen: Bowel Sounds Present, Soft, Non Tender, Non-Distended, No Hepato-splenomegaly Extremities: No clubbing, No cyanosis, No edema Skin: No rashes, No breakdown Lymphatic: No Cervical, Supraclavicular, or Inguinal Adenopathy Neurological: Cranial nerves II-XII grossly intact, Motor Exam 5/5 strength throughout Psych/Mental Status: Normal Affect, Appropriate, Alert and oriented to time, place, person, mood and affect Vital Signs Temp Pulse Resp BP Pulse Ox 97.9 F 71 16 155/67 H 97 12/29/18 01:23 12/29/18 01:23 12/29/18 01:23 12/29/18 01:23 12/29/18 01:23 Oxygen Delivery Method Room Air Weight: 207 lb 7.28 oz Body Mass Index (BMI) 31.5 Laboratory Tests Past 24 Hrs 12/29/18 12/29/18 12/29/18 01:55 01:55 01:55 WBC 8.2 RBC 3.87 L Hgb 11.9 L Hct 37.0 MCV 95.6 MCH 30.7 MCHC 32.2 RDW 14.5 RDW Differential 50.3 H Plt Count 214 MPV 9.6 Immature Gran % (Auto) 0.400 Neut % (Auto) 72.6 H Lymph % (Auto) 11.2 L [place] % (Auto) 14.3 H Eos % (Auto) 1.3 Baso % (Auto) 0.2 Absolute Neuts (auto) 5.9 Absolute Lymphs (auto) 0.92 Total Counted Not Reportable PT 18.5 H INR 1.6 Sodium 138 Potassium 4.0 Chloride 103 Carbon Dioxide 26.0 Anion Gap 9 BUN 29 H Creatinine 1.04 H Estim Creat Clear Calc 45.70 Est GFR (MDRD) Af Amer 66 Est GFR (MDRD) Non-Af 55 L BUN/Creatinine Ratio 27.9 H Glucose 122 H Calcium 9.1 Total Bilirubin 1.10 H AST 23 ALT 18 Alkaline Phosphatase 64 Total Protein 7.8 Albumin 3.7 Globulin 4.1 Albumin/Globulin Ratio 0.9 Clinical Impression(s) from Imaging Studies Chest X-Ray 12/29/18 01:39 IMPRESSION: Stable mild cardiomegaly Electronically Signed: Todd Sargent MD at 2:30 EST Tel , Service support , Hip/Pelvis X-Ray 12/29/18 01:39 IMPRESSION: 1. Left superior and inferior pubic rami fractures. 2. Mild bilateral hip osteoarthritic change, left greater than right. Electronically Signed: Todd Sargent MD at 2:33 EST Tel , Service support , Assessment/Plan This is a 78 years old female patient presented to the emergency room because of intractable left hip/pelvic pain due to pelvic fracture secondary to mechanical fall around 1 week ago and also found to have left wrist fracture status post casting at outside facility and she is being admitted for evaluation and pain control. #1 mechanical fall/left inferior and superior pubic rami fractures/left wrist fracture: Patient had mechanical fall few days ago in [place], treated with casting of the left wrist fracture and pain control for the pelvic fracture. She has been having intractable pain, not able to ambulate. Her vital signs are stable. Routine blood work reviewed as above. Plan: Admit to MedSur floor, ambulate as needed, IV morphine as needed for pain, OxyIR as needed for pain, Tylenol as needed, IV Zofran as needed, x-ray of the left wrist and left forearm, orthopedic surgery consult, repeat CBC and BMP tomorrow morning December 30, 2018, PT OT evaluation and treatment, patient will need placement to [facility] facility. #2 CAD status post CABG and stents: Stable, no complaints. Continue aspirin, statins, lisinopril and metoprolol. #3 chronic atrial fibrillation/complete heart block, status post pacemaker. Rate is controlled, continue metoprolol for rate control, continue Coumadin for anti-Coblation, repeat INR tomorrow morning. #4 chronic systolic CHF/ischemic cardiomyopathy: Clinically stable, compensated. Plan to continue torsemide and Aldactone, continue lisinopril and metoprolol. #5 hypertension: Blood pressure slightly elevated, continue lisinopril and metoprolol as well as torsemide and Aldactone. #6 COPD: Stable, pulse ox is maintained on room air. Plan for albuterol as needed. Chest x-ray showed no acute findings. #7 hyperlipidemia: Continue statins. #8 DVT prophylaxis: INR is 1.6. This note was generated with [employer] software. It may contain incorrect words, spelling, and punctuation that were not noted in checking the note before signing. Code Visit Inpatient E&M: 96469 Init Hosp L3
--- NOTE | 2018-12-29 03:30 | HP.PCM_ITS ---
Problem List (1) Complete heart block Status: Chronic (2) Presence of cardiac pacemaker Status: Chronic (3) Benign hypertension Status: Chronic (4) Hx of CABG Status: Chronic Comment: for Ablation Complication (5) CAD (coronary artery disease) Status: Chronic Qualifiers: Comment: S/P to proximal and ostial RCA stent in June 2009; (6) COPD (chronic obstructive pulmonary disease) Status: Chronic (7) HLD (hyperlipidemia) Status: Chronic Qualifiers: (8) Paroxysmal atrial fibrillation Status: Chronic History of Present Illness Date of Admission: 12/29/18 Chief Complaint: Left hip pain, recent fall. The patient is a 78 year old F with past medical history as mentioned above presented to the emergency room because of left hip pain. Patient was in [place] for vacation over the last week, had a mechanical fall in the parking lot and she went to emergency room back in [place] and she was found to have left wrist fracture as well as was and she was given oral analgesics and she was discharged home. Tonight, she flew back from [place] to [place] area where she lives and she came to the emergency room. Her main presenting complaint today is the left hip pain which has been going on for since she had a fall 6 days ago, pain comes on only when she is standing or walking, sharp pain, 10 out of 10 in severity, not radiating, aggravated by putting weight on his feet as well as walking, relieved by rest and without significant associated symptoms. Also, she complained of left wrist pain that has been going on for the same duration. Back in [place], she had a cast put on her left wrist by orthopedics and she was informed that her pelvic fracture was nonoperative. In the emergency department, her blood pressure was slightly elevated, other vital signs were stable. Her routine blood work was remarkable for hemoglobin of 11.9 g/dL, BUN of 29 which is chronic, otherwise normal. LFT was normal. INR was 1.6. X-ray of the hip and pelvis revealed left superior and inferior pubic rami fractures. Chest x-ray showed no acute findings, showed mild cardiomegaly. She is being admitted for intractable pelvic pain due to left superior and inferior pubic rami fractures as well as left wrist fracture and patient will probably need placement to alf facility. Past Medical History Past Medical History (Chronic Problems): Chronic Problems (Last Reviewed 11/20/18 @ 12:13 by Elijah West MD) Cardiomyopathy (Chronic) EF 45% Complete heart block (Chronic) Presence of cardiac pacemaker (Chronic) [facility] (current) use of anticoagulants (Chronic) Benign hypertension (Chronic) Hx of CABG (Chronic) for Ablation Complication CAD (coronary artery disease) (Chronic) S/P to proximal and ostial RCA stent in June 2009; COPD (chronic obstructive pulmonary disease) (Chronic) HLD (hyperlipidemia) (Chronic) Osteoarthritis (Chronic) History of prior ablation treatment (Chronic) 2008 History of coronary artery stent placement (Chronic) S/P stent to proximal and ostial RCA stent in June 2009; Paroxysmal atrial fibrillation (Chronic) Medical History: Medical History (Last Reviewed 09/17/18 @ 12:13 by Elijah West MD) Cardiomyopathy (Chronic) I42.9 EF 45% Complete heart block (Chronic) I44.2 Presence of cardiac pacemaker (Chronic) 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 [Ecotrin] 81 mg PO DAILY@0800 09/08/14 ipratropium bromide 42 mcg (0.06 See Protocol INTRANASAL DAILY 10/31/17 %) nasal spray Days #15 levothyroxine 100 mcg tablet 100 mcg PO QDAY 04/19/18 lisinopril 5 mg tablet 5 mg PO DAILY #90 tab 07/23/18 sertraline 50 mg tablet 50 mg PO DAILY 07/23/18 Atorvastatin Calcium [Lipitor] 40 mg PO QHS 08/20/18 Warfarin [Coumadin] 6 mg PO DAILY 08/20/18 spironolactone 25 mg tablet 25 mg PO DAILY #90 tab 10/03/18 torsemide 10 mg tablet 10 mg PO BID #180 tab 10/03/18 metoprolol tartrate 50 mg tablet 25 mg PO BID #90 tab 10/04/18 Surgical History: Surgical History (Last Reviewed 09/17/18 @ 12:13 by Elijah West MD) Hx of CABG (Chronic) for Ablation Complication History of prior ablation treatment (Chronic) Z98.890 2008 History of coronary artery stent placement (Chronic) Z95.5 S/P stent to proximal and ostial RCA stent in June 2009; Surgical History: appendectomy, coronary bypass surgery, , stents Psychiatric History: No pertinent psych hx 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 Lives: Alone Smoking Status: Former smoker Alcohol: None Drugs: None - *Family History Maternal History Items: No pertinent history Paternal History Items: No pertinent history Review of Systems Constitutional: Denies: Anorexia, Chills, Fever, Weakness Eyes: Denies: Blurred vision, Double vision, Drainage, Redness HEENT: Denies: Difficulty Hearing, Ear Pain, Eye Pain, Nasal Congestion, Sore Throat Cardiovascular: Denies: Chest Pain, Chest Pressure, Chest Tightness, Edema, Heaviness, Palpitations Respiratory: Denies: Cough, Hemoptysis, Pleuritic Pain, Shortness of Breath, Sputum production, Wheezing Gastrointestinal: Denies: Abdominal Pain, Constipation, Diarrhea, Nausea, Vomiting Genitourinary: Denies: Dysuria, Frequency, Hematuria Musculoskeletal: Reports: Arm Pain, Joint Pain Skin: Denies: Dryness, Rash Neurological: Denies: Balance problems, Double vision, Change in Speech, Slurred speech, Confusion, Headaches, Incoordination, Numbness, Tingling Psychiatric: Denies: Anxiety, Depression Endocrine: Denies: Change in Body Habitus, Polydipsia VTE Information - Inpt Only VTE Present on Admission: No VTE Mechan Device Prophylaxis: None VTE Pharm Prophylaxis ordered?: No - Physical Exam General: Alert, Oriented x3, Cooperative, No apparent distress HEENT: Atraumatic, PERRLA, EOMI, Normocephalic Oral: Moist Mucosa, No Gingival or Mucosal Lesions/ Ulcerations Neck: Supple, No JVD, Negative Carotid Bruits, Trachea Midline, Thyroid Normal Size and Texture Lungs: Clear to auscultation, No rhonchi, No wheeze, No rales, Diminished Cardiovascular: Regular Rhythm, Normal S1, Normal S2, PMI Normal Abdomen: Bowel Sounds Present, Soft, Non Tender, Non-Distended, No Hepato- splenomegaly Extremities: No clubbing, No cyanosis, No edema Skin: No rashes, No breakdown Lymphatic: No Cervical, Supraclavicular, or Inguinal Adenopathy Neurological: Cranial nerves II-XII grossly intact, Motor Exam 5/5 strength throughout Psych/Mental Status: Normal Affect, Appropriate, Alert and oriented to time, place, person, mood and affect Vital Signs Temp Pulse Resp BP Pulse Ox 97.9 F 71 16 155/67 H 97 12/29/18 01:23 12/29/18 01:23 12/29/18 01:23 12/29/18 01:23 12/29/18 01:23 Oxygen Delivery Method Room Air Weight: 207 lb 7.28 oz Body Mass Index (BMI) 31.5 Laboratory Tests Past 24 Hrs 12/29/18 12/29/18 12/29/18 01:55 01:55 01:55 WBC 8.2 RBC 3.87 L Hgb 11.9 L Hct 37.0 MCV 95.6 MCH 30.7 MCHC 32.2 RDW 14.5 RDW Differential 50.3 H Plt Count 214 MPV 9.6 Immature Gran % (Auto) 0.400 Neut % (Auto) 72.6 H Lymph % (Auto) 11.2 L [place] % (Auto) 14.3 H Eos % (Auto) 1.3 Baso % (Auto) 0.2 Absolute Neuts (auto) 5.9 Absolute Lymphs (auto) 0.92 Total Counted Not Reportable PT 18.5 H INR 1.6 Sodium 138 Potassium 4.0 Chloride 103 Carbon Dioxide 26.0 Anion Gap 9 BUN 29 H Creatinine 1.04 H Estim Creat Clear Calc 45.70 Est GFR (MDRD) Af Amer 66 Est GFR (MDRD) Non-Af 55 L BUN/Creatinine Ratio 27.9 H Glucose 122 H Calcium 9.1 Total Bilirubin 1.10 H AST 23 ALT 18 Alkaline Phosphatase 64 Total Protein 7.8 Albumin 3.7 Globulin 4.1 Albumin/Globulin Ratio 0.9 Clinical Impression(s) from Imaging Studies Chest X-Ray 12/29/18 01:39 IMPRESSION: Stable mild cardiomegaly Electronically Signed: Todd Sargent MD at 2:30 EST Tel , Service support , Hip/Pelvis X-Ray 12/29/18 01:39 IMPRESSION: 1. Left superior and inferior pubic rami fractures. 2. Mild bilateral hip osteoarthritic change, left greater than right. Electronically Signed: Todd Sargent MD at 2:33 EST Tel , Service support , Assessment/Plan This is a 78 years old female patient presented to the emergency room because of intractable left hip/pelvic pain due to pelvic fracture secondary to mechanical fall around 1 week ago and also found to have left wrist fracture status post casting at outside facility and she is being admitted for evaluation and pain control. #1 mechanical fall/left inferior and superior pubic rami fractures/left wrist fracture: Patient had mechanical fall few days ago in [place], treated with casting of the left wrist fracture and pain control for the pelvic fracture. She has been having intractable pain, not able to ambulate. Her vital signs are stable. Routine blood work reviewed as above. Plan: Admit to MedSur floor, ambulate as needed, IV morphine as needed for pain, OxyIR as needed for pain, Tylenol as needed, IV Zofran as needed, x-ray of the left wrist and left forearm, orthopedic surgery consult, repeat CBC and BMP tomorrow morning December 30, 2018, PT OT evaluation and treatment, patient will need placement to alf facility. #2 CAD status post CABG and stents: Stable, no complaints. Continue aspirin, statins, lisinopril and metoprolol. #3 chronic atrial fibrillation/complete heart block, status post pacemaker. Rate is controlled, continue metoprolol for rate control, continue Coumadin for anti-Coblation, repeat INR tomorrow morning. #4 chronic systolic CHF/ischemic cardiomyopathy: Clinically stable, compensated. Plan to continue torsemide and Aldactone, continue lisinopril and metoprolol. #5 hypertension: Blood pressure slightly elevated, continue lisinopril and metoprolol as well as torsemide and Aldactone. #6 COPD: Stable, pulse ox is maintained on room air. Plan for albuterol as needed. Chest x-ray showed no acute findings. #7 hyperlipidemia: Continue statins. #8 DVT prophylaxis: INR is 1.6. This note was generated with [employer] software. It may contain incorrect words, spelling, and punctuation that were not noted in checking the note before signing. Code Visit Inpatient E&M: 72102 Init Hosp L3
--- NOTE | 2018-12-29 04:24 | RAD_ITS ---
STUDY: X-RAY - LEFT WRIST REASON FOR EXAM: Female, 78 years old. Fall with known wrist fracture. TECHNIQUE: 3 view(s) of the wrist were obtained. COMPARISON: 29 December 2018 FINDINGS: Comminuted interarticular fracture of the distal radius is again noted. Fracture of ulnar styloid is also present. Normal radiocarpal articulation. Normal distal radioulnar articulation. Normal carpal bones. Normal carpal articulations. There is degenerative arthrosis of the carpometacarpal articulation of the thumb. Normal second through fifth carpometacarpal articulations. Normal visualized metacarpal bones. The soft tissue structures are unremarkable. RAD/Wrist 2 Views IMPRESSION: Distal radial interarticular and ulnar styloid fracture with similar appearance compared to previous with overlying casting material. Electronically Signed: Kai Arita DO at 9:26 EST , Service support ,
--- NOTE | 2018-12-29 06:30 | RAD_ITS ---
STUDY: X-RAY - LEFT RADIUS AND ULNA REASON FOR EXAM: Female, 78 years old. Patient fell TECHNIQUE: 2 view(s) of the and wrist forearm. COMPARISON: None. FINDINGS: An intra-articular fracture involving the base of the radial styloid. It is minimally displaced. There is also a displaced fracture of the ulnar styloid. Degenerative changes of the first carpometacarpal joint. A fiberglass cast has been used for external stabilization. RAD/Forearm 2 Views IMPRESSION: Minimally displaced fractures of the radial and ulnar styloids. A fiberglass cast was used for external stabilization. Degenerative changes involving the first carpometacarpal joint. Electronically Signed: Mohinder Espinoza MD at 7:45 EST Tel , Service support ,
[2018-12-29] MEDS: Levothyroxine 100 MCG Tablet PO (06:31)
--- NOTE | 2018-12-29 08:25 | PCM.PROGNOTE ---
Subjective: 78-year-old female with a past medical history of cardiomyopathy with a 45% ejection fraction, complete heart block with presence of pacemaker, chronic anticoagulation with warfarin., hypertension, coronary artery disease with history of CABG, COPD, hyperlipidemia, osteoarthritis, prior ablation treatment in 2008 and paroxysmal atrial fibrillation who recently fell and sustained a left wrist fracture in [place] and was given analgesics and sent home. Orthopedics stated at that time in [place] that the wrist was nonoperable. She presented to the emergency department at [facility] on 12/29/2018 complaining of left hip pain and left wrist pain. Significant lab included a subtherapeutic INR at 1.6 and a BUN of 20 with a creatinine of 1.04. X-ray of the left hip and pelvis showed left superior and inferior pubic rami fractures and mild bilateral osteoarthritis of the hips. She was admitted to the hospital and placed on pain medication. She is weightbearing as tolerated. Orthopedic consult was ordered. She will likely need placed in a usp facility until the pubic rami fractures can adequately heal and she is able to ambulate. All events of the past 24 hours been reviewed. She is afebrile with stable vital signs. Objective: PHYSICAL EXAM: GENERAL: alert, oriented X 3, Cooperative, NAD ORAL: moist mucosa, no mucosal lesions NECK: No JVD, supple, trachea midline LUNGS: CTA, symmetric chest expansion, diminished, no conversational dyspnea, not tachypneic HEART: RRR, Normal S1 and S2, no rub, no gallop ABDOMEN: soft, NT, ND, BS present, no guarding with palpation EXTREMITIES: no edema, no cyanosis, no calf tenderness, cast on the Left forearm. Tells me that the pain is adequately controlled SKIN: No rashes, no breakdown, extensive bruising of the LUE, the left lateral breast. also with bruising of the Left lateral and medial thigh NEUROLOGIC: no focal neurologic deficits PSYCH: appropriate, normal affect, pleasant - Physical Exam Vital Signs Temp Pulse Resp BP Pulse Ox 97.9 F 70 16 127/58 H 95 12/29/18 08:22 12/29/18 08:22 12/29/18 08:22 12/29/18 08:22 12/29/18 08:22 Oxygen Delivery Method Room Air Weight: 204 lb 12.951 oz Body Mass Index (BMI) 31.1 Intake and Output for Last 24 Hours 12/27/18 12/28/18 12/29/18 23:59 23:59 23:59 Intake Total 40 / 40 Balance 40 / 40 Laboratory Tests Past 24 Hrs 12/29/18 12/29/18 12/29/18 01:55 01:55 01:55 WBC 8.2 RBC 3.87 L Hgb 11.9 L Hct 37.0 MCV 95.6 MCH 30.7 MCHC 32.2 RDW 14.5 RDW Differential 50.3 H Plt Count 214 MPV 9.6 Immature Gran % (Auto) 0.400 Neut % (Auto) 72.6 H Lymph % (Auto) 11.2 L [place] % (Auto) 14.3 H Eos % (Auto) 1.3 Baso % (Auto) 0.2 Absolute Neuts (auto) 5.9 Absolute Lymphs (auto) 0.92 Total Counted Not Reportable PT 18.5 H INR 1.6 Sodium 138 Potassium 4.0 Chloride 103 Carbon Dioxide 26.0 Anion Gap 9 BUN 29 H Creatinine 1.04 H Estim Creat Clear Calc 45.70 Est GFR (MDRD) Af Amer 66 Est GFR (MDRD) Non-Af 55 L BUN/Creatinine Ratio 27.9 H Glucose 122 H Calcium 9.1 Total Bilirubin 1.10 H AST 23 ALT 18 Alkaline Phosphatase 64 Total Protein 7.8 Albumin 3.7 Globulin 4.1 Albumin/Globulin Ratio 0.9 Medical Necessity - Tobacco Use Smoking Status: Former smoker Assessment/Plan Impressions 1. Left distal radius fracture 2. Left inferior and superior pubic rami fracture 3. Obesity 4. History of complete heart block with pacemaker implantation 5. Hypertension 6. CAD with history of CABG 7. History of radiofrequency ablation for PAF 8. COPD 9. Hyperlipidemia 10. Mild ischemic cardiomyopathy with a 45% ejection fraction 11. Long-term anticoagulation with warfarin 12. Subtherapeutic INR Needs SNF - would like [facility] WBAT on the LLE elevated the LUE to decrease swelling and pain Appreciate Dr. Castillo's input Recheck ELIECER in the AM and PT./INR - pelvic fractures can bleed a lot and she is on Warfarin so will need to monitor the HGB
[2018-12-29] MEDS: Spironolactone 25 MG Tablet PO (08:58)
[2018-12-29] MEDS: Docusate Sodium 100 MG Capsule PO ×2 (08:58→21:42)
[2018-12-29] MEDS: Aspirin E.C. 81 MG Tablet PO (08:58)
[2018-12-29] MEDS: Metoprolol Tartrate 25 MG Tablet PO ×2 (08:58→21:42)
[2018-12-29] MEDS: Furosemide 20 MG Tablet PO ×2 (08:59→21:42)
[2018-12-29] MEDS: Lisinopril 5 MG Tablet PO (08:59)
--- NOTE | 2018-12-29 10:05 | PCM.CONS.GEN ---
Reason for Consult Date of Consultation: 12/29/18 Reason for Consultation: Left wrist fracture and left inferior and superior pubic rami fractures History of Present Illness: The patient is a 78 year old F [community ambulator who fell approximately one week ago in [place]. She was noted then to have a minimally displaced left wrist fracture and pubic rami fractures. She had a cast placed on the left wrist. She was admitted to [facility] last night with intractable left hip pain and inability to care for herself at home. Today she reports left wrist pain and left groin pain. 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) use of anticoagulants (Chronic) Benign hypertension (Chronic) Hx of CABG (Chronic) for Ablation Complication CAD (coronary artery disease) (Chronic) S/P to proximal and ostial RCA stent in June 2009; COPD (chronic obstructive pulmonary disease) (Chronic) HLD (hyperlipidemia) (Chronic) Osteoarthritis (Chronic) History of prior ablation treatment (Chronic) 2008 History of coronary artery stent placement (Chronic) S/P stent to proximal and ostial RCA stent in June 2009; Paroxysmal atrial fibrillation (Chronic) Medical History: Medical History (Last Reviewed 09/17/18 @ 12:13 by Elijah West MD) Cardiomyopathy (Chronic) I42.9 EF 45% Complete heart block (Chronic) I44.2 Presence of cardiac pacemaker (Chronic) Z95.0 halfway (current) use of anticoagulants (Chronic) Z79.01 Benign hypertension (Chronic) I10 CAD (coronary artery disease) (Chronic) I25.10 S/P to proximal and ostial RCA stent in June 2009; COPD (chronic obstructive pulmonary disease) (Chronic) J44.9 HLD (hyperlipidemia) (Chronic) E78.5 Osteoarthritis (Chronic) Paroxysmal atrial fibrillation (Chronic) I48.0 HTN (hypertension) I10 Allergies No Known Allergies Allergy (Verified 09/17/18 11:48) Home Medications: Ambulatory Orders Medication Instructions Recorded Aspirin E.C. [Ecotrin] 81 mg PO QHS 09/08/14 ipratropium bromide 42 mcg (0.06 See Protocol INTRANASAL DAILY 20 10/31/17 %) nasal spray Days #15 levothyroxine 100 mcg tablet 100 mcg PO QDAY 04/19/18 lisinopril 5 mg tablet 5 mg PO DAILY #90 tab 07/23/18 Atorvastatin Calcium [Lipitor] 40 mg PO QHS 08/20/18 Warfarin [Coumadin] 6 mg PO DAILY 08/20/18 spironolactone 25 mg tablet 25 mg PO DAILY #90 tab 10/03/18 torsemide 10 mg tablet 10 mg PO BID #180 tab 10/03/18 metoprolol tartrate 50 mg tablet 25 mg PO BID #90 tab 10/04/18 Acetaminophen with Codeine 2 tab PO Q4H PRN PRN 12/29/18 [Acetaminophen-Cod #3 Tablet] Surgical History: Surgical History (Last Reviewed 09/17/18 @ 12:13 by Elijah West MD) Hx of CABG (Chronic) for Ablation Complication History of prior ablation treatment (Chronic) Z98.890 2009 History of coronary artery stent placement (Chronic) Z95.5 S/P stent to proximal and ostial RCA stent in June 2009; Surgical History: appendectomy, coronary bypass surgery, , stents Psychiatric History: No pertinent psych hx COREMAKER EXPERIMENTAL History: No pertinent COREMAKER EXPERIMENTAL history Lives: Alone Smoking Status: Former smoker Alcohol: None Drugs: None - *Family History Maternal History Items: No pertinent history Paternal History Items: No pertinent history Review of Systems Musculoskeletal: Reports: Arm Pain - left wrist, Joint Pain - left groin Comment: HPI, PMHx, and ROS reviewed as per intake H&P - Physical Exam General: Alert, Oriented x3, No apparent distress Extremities: No clubbing, No cyanosis, Capillary Refill Less than 3 Seconds, Edema - mild edema about left hand. Cast is well-fitting and non-constrictive Musculoskeletal: Tenderness - about left hip with mild ecchymosis Neurological: Neuro grossly intact Comment: xrays reviewed and agree with radiologist interpretation Vital Signs Temp Pulse Resp BP Pulse Ox 97.9 F 70 16 127/58 H 95 12/29/18 08:22 12/29/18 08:58 12/29/18 08:22 12/29/18 08:22 12/29/18 08:22 Oxygen Delivery Method Room Air Weight: 204 lb 12.951 oz Body Mass Index (BMI) 31.1 Intake and Output for Last 24 Hours 12/27/18 12/28/18 12/29/18 23:59 23:59 23:59 Intake Total 40 / 40 Balance 40 / 40 Laboratory Tests Past 24 Hrs 12/29/18 12/29/18 12/29/18 01:55 01:55 01:55 WBC 8.2 RBC 3.87 L Hgb 11.9 L Hct 37.0 MCV 95.6 MCH 30.7 MCHC 32.2 RDW 14.5 RDW Differential 50.3 H Plt Count 214 MPV 9.6 Immature Gran % (Auto) 0.400 Neut % (Auto) 72.6 H Lymph % (Auto) 11.2 L [place] % (Auto) 14.3 H Eos % (Auto) 1.3 Baso % (Auto) 0.2 Absolute Neuts (auto) 5.9 Absolute Lymphs (auto) 0.92 Total Counted Not Reportable PT 18.5 H INR 1.6 Sodium 138 Potassium 4.0 Chloride 103 Carbon Dioxide 26.0 Anion Gap 9 BUN 29 H Creatinine 1.04 H Estim Creat Clear Calc 45.70 Est GFR (MDRD) Af Amer 66 Est GFR (MDRD) Non-Af 55 L BUN/Creatinine Ratio 27.9 H Glucose 122 H Calcium 9.1 Total Bilirubin 1.10 H AST 23 ALT 18 Alkaline Phosphatase 64 Total Protein 7.8 Albumin 3.7 Globulin 4.1 Albumin/Globulin Ratio 0.9 Assessment/Plan 1. Mildly impacted and displaced left distal radius fracture -- If maintains current position, should heal without surgery. 2. Left superior and inferior pubic rami fractures -- non-operative I counselled patient that these fractures will likely take approximately 8-12 weeks to heal. She would benefit from a rehab stay and a platform walker to keep weight off of the left wrist. She may be WBAT on the LLE. Would follow up with ortho in office about 10 days post discharge for repeat xrays of the left wrist and pelvis.
--- NOTE | 2018-12-29 10:10 | CON.PCM_ITS ---
Reason for Consult Date of Consultation: 12/29/18 Reason for Consultation: Left wrist fracture and left inferior and superior pubic rami fractures History of Present Illness: The patient is a 78 year old F [community ambulator who fell approximately one week ago in [place]. She was noted then to have a minimally displaced left wrist fracture and pubic rami fractures. She had a cast placed on the left wrist. She was admitted to [facility] last night with intractable left hip pain and inability to care for herself at home. Today she reports left wrist pain and left groin pain. 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 of anticoagulants (Chronic) Benign hypertension (Chronic) Hx of CABG (Chronic) for Ablation Complication CAD (coronary artery disease) (Chronic) S/P to proximal and ostial RCA stent in June 2009; COPD (chronic obstructive pulmonary disease) (Chronic) HLD (hyperlipidemia) (Chronic) Osteoarthritis (Chronic) History of prior ablation treatment (Chronic) 2008 History of coronary artery stent placement (Chronic) S/P stent to proximal and ostial RCA stent in June 2009; Paroxysmal atrial fibrillation (Chronic) Medical History: Medical History (Last Reviewed 09/17/18 @ 12:13 by Elijah West MD) Cardiomyopathy (Chronic) I42.9 EF 45% Complete heart block (Chronic) I44.2 Presence of cardiac pacemaker (Chronic) Z95.0 half-way (current) use of anticoagulants (Chronic) Z79.01 Benign hypertension (Chronic) I10 CAD (coronary artery disease) (Chronic) I25.10 S/P to proximal and ostial RCA stent in June 2009; COPD (chronic obstructive pulmonary disease) (Chronic) J44.9 HLD (hyperlipidemia) (Chronic) E78.5 Osteoarthritis (Chronic) Paroxysmal atrial fibrillation (Chronic) I48.0 HTN (hypertension) I10 Allergies No Known Allergies Allergy (Verified 09/17/18 11:48) Home Medications: Ambulatory Orders Medication Instructions Recorded Aspirin E.C. [Ecotrin] 81 mg PO QHS 09/08/14 ipratropium bromide 42 mcg (0.06 See Protocol INTRANASAL DAILY 20 10/31/17 %) nasal spray Days #15 levothyroxine 100 mcg tablet 100 mcg PO QDAY 04/19/18 lisinopril 5 mg tablet 5 mg PO DAILY #90 tab 07/23/18 Atorvastatin Calcium [Lipitor] 40 mg PO QHS 08/20/18 Warfarin [Coumadin] 6 mg PO DAILY 08/20/18 spironolactone 25 mg tablet 25 mg PO DAILY #90 tab 10/03/18 torsemide 10 mg tablet 10 mg PO BID #180 tab 10/03/18 metoprolol tartrate 50 mg tablet 25 mg PO BID #90 tab 10/04/18 Acetaminophen with Codeine 2 tab PO Q4H PRN PRN 12/29/18 [Acetaminophen-Cod #3 Tablet] Surgical History: Surgical History (Last Reviewed 09/17/18 @ 12:13 by Elijah West MD) Hx of CABG (Chronic) for Ablation Complication History of prior ablation treatment (Chronic) Z98.890 2009 History of coronary artery stent placement (Chronic) Z95.5 S/P stent to proximal and ostial RCA stent in June 2009; Surgical History: appendectomy, coronary bypass surgery, , stents Psychiatric History: No pertinent psych hx PROGRAM DIRECTOR/TRAFFIC DIRECTOR History: No pertinent PROGRAM DIRECTOR/TRAFFIC DIRECTOR history Lives: Alone Smoking Status: Former smoker Alcohol: None Drugs: None - *Family History Maternal History Items: No pertinent history Paternal History Items: No pertinent history Review of Systems Musculoskeletal: Reports: Arm Pain - left wrist, Joint Pain - left groin Comment: HPI, PMHx, and ROS reviewed as per intake H&P - Physical Exam General: Alert, Oriented x3, No apparent distress Extremities: No clubbing, No cyanosis, Capillary Refill Less than 3 Seconds, Edema - mild edema about left hand. Cast is well-fitting and non-constrictive Musculoskeletal: Tenderness - about left hip with mild ecchymosis Neurological: Neuro grossly intact Comment: xrays reviewed and agree with radiologist interpretation Vital Signs Temp Pulse Resp BP Pulse Ox 97.9 F 70 16 127/58 H 95 12/29/18 08:22 12/29/18 08:58 12/29/18 08:22 12/29/18 08:22 12/29/18 08:22 Oxygen Delivery Method Room Air Weight: 204 lb 12.951 oz Body Mass Index (BMI) 31.1 Intake and Output for Last 24 Hours 12/27/18 12/28/18 12/29/18 23:59 23:59 23:59 Intake Total 40 / 40 Balance 40 / 40 Laboratory Tests Past 24 Hrs 12/29/18 12/29/18 12/29/18 01:55 01:55 01:55 WBC 8.2 RBC 3.87 L Hgb 11.9 L Hct 37.0 MCV 95.6 MCH 30.7 MCHC 32.2 RDW 14.5 RDW Differential 50.3 H Plt Count 214 MPV 9.6 Immature Gran % (Auto) 0.400 Neut % (Auto) 72.6 H Lymph % (Auto) 11.2 L [place] % (Auto) 14.3 H Eos % (Auto) 1.3 Baso % (Auto) 0.2 Absolute Neuts (auto) 5.9 Absolute Lymphs (auto) 0.92 Total Counted Not Reportable PT 18.5 H INR 1.6 Sodium 138 Potassium 4.0 Chloride 103 Carbon Dioxide 26.0 Anion Gap 9 BUN 29 H Creatinine 1.04 H Estim Creat Clear Calc 45.70 Est GFR (MDRD) Af Amer 66 Est GFR (MDRD) Non-Af 55 L BUN/Creatinine Ratio 27.9 H Glucose 122 H Calcium 9.1 Total Bilirubin 1.10 H AST 23 ALT 18 Alkaline Phosphatase 64 Total Protein 7.8 Albumin 3.7 Globulin 4.1 Albumin/Globulin Ratio 0.9 Assessment/Plan 1. Mildly impacted and displaced left distal radius fracture -- If maintains current position, should heal without surgery. 2. Left superior and inferior pubic rami fractures -- non-operative I counselled patient that these fractures will likely take approximately 8-12 weeks to heal. She would benefit from a rehab stay and a platform walker to keep weight off of the left wrist. She may be WBAT on the LLE. Would follow up with ortho in office about 10 days post discharge for repeat xrays of the left wrist and pelvis.
[2018-12-29] MEDS: oxyCODONE 5 MG Tablet PO (16:59)
[2018-12-29] MEDS: Acetaminophen 500 MG Tablet 1000 MG PO (21:42)
[2018-12-29] MEDS: Atorvastatin Calcium 40 MG Tablet PO (21:42)
[2018-12-30] VITALS (7 sets, daily range): BP systolic 110–131; BP diastolic 51–67; PULSE 70–72; RESP 16–18; TEMP 36.3–36.8; O2SAT 95–97
[2018-12-30] MEDS: oxyCODONE 5 MG Tablet PO ×3 (01:55→14:12)
[2018-12-30] MEDS: Acetaminophen 500 MG Tablet 1000 MG PO ×3 (05:55→22:06)
[2018-12-30] MEDS: Levothyroxine 100 MCG Tablet PO (05:55)
[2018-12-30 06:27] LABS: Absolute Lymphocyte Count 1.44 X10^3/ul (0.83-4.51); Absolute Neutrophil Count 3.9 X10^3/uL (2.0-7.7); Basophil# 0.03 X10^3/uL; Basophil% 0.5 % (0-1); Eosinophil# 0.18 X10^3/uL; Eosinophils% 2.8 % (0-5); Hematocrit 35.6 % (37-47); Hemoglobin 11.3 g/dl (12.0-15.0); Lymphocyte # 1.44 X10^3/ul (4.0); Lymphocyte % 22.3 % (19-41); Mean Corp Hgb Conc 31.7 g/gl (32-36); Mean Corpuscular Hgb 30.5 pg (27.0-32.0); Mean Corpuscular Volume 96.2 fL (81-99); Mean Platelet Vol. 9.8 fl (6.2-12.0); Monocyte# 0.87 X10^3/uL; Monocyte% 13.5 % (0-10); Neutrophil % 60.3 % (47-70); Platelet Count 202 K/mm3 (150-450); RBC Distribution Width CV 14.6 % (11.6-14.6); RBC Distribution Width SD 51.1 fl (35.1-43.9); White Blood Count 6.5 K/mm3 (4.4-11.0)
[2018-12-30 06:28] LABS: POSITIVE COUNT NO; POSITIVE DIFFERENTIAL NO; POSITIVE MORPHOLOGY NO
[2018-12-30 06:33] LABS: Anion Gap 10 (5-15); BUN 26 mg/dL (7-18); BUN/Creat Ratio 24.8 RATIO (10-20); Calcium,Total 8.9 mg/dL (8.5-10.1); Chloride 104 mmol/L (98-107); Creatinine, Serum 1.05 mg/dL (0.55-1.02); EST Glomerular Filtration Rate 54 mL/min (>60); Est Glom Filt Rate - Afr Amer 65 mL/min (>60); Estimated Creatinine Clearance 45.26 ml/min; Glucose 100 mg/dL (74-106); Potassium 4.7 mmol/L (3.5-5.1); Sodium Level 139 mmol/L (136-145)
[2018-12-30 06:42] LABS: International Normalized Ratio 1.4; Prothrombin Time (Protime)PT. 17.3 SECONDS (11.7-14.9)
[2018-12-30] MEDS: Furosemide 20 MG Tablet PO ×2 (08:19→22:06)
[2018-12-30] MEDS: Docusate Sodium 100 MG Capsule PO ×2 (08:19→22:06)
[2018-12-30] MEDS: Lisinopril 5 MG Tablet PO (08:19)
[2018-12-30] MEDS: Aspirin E.C. 81 MG Tablet PO (08:19)
[2018-12-30] MEDS: Spironolactone 25 MG Tablet PO (08:20)
[2018-12-30] MEDS: Metoprolol Tartrate 25 MG Tablet PO ×2 (08:20→22:05)
--- NOTE | 2018-12-30 10:58 | PCM.PN.HOSP ---
Subjective: Feels better, and her pain is will be better controlled. Vitals/I&O's: Vital Signs Temp Pulse Resp BP Pulse Ox 98.3 F 72 16 110/51 L 95 12/30/18 08:25 12/30/18 08:25 12/30/18 08:25 12/30/18 08:25 12/30/18 08:25 Oxygen Delivery Method Room Air Weight: 204 lb 12.951 oz Body Mass Index (BMI) 31.1 Intake and Output for Last 24 Hours 12/28/18 12/29/18 12/30/18 23:59 23:59 23:59 Intake Total 40 / 40 700 / 700 Output Total 650 / 650 1150 / 1150 Balance -610 / -610 -450 / -450 General: Alert, Oriented x3, Cooperative, No apparent distress HEENT: Atraumatic, EOMI, Normocephalic Oral: Moist Mucosa Neck: Supple, No JVD, Trachea Midline Lungs: Clear to auscultation, Normal air movement, No rhonchi, No wheeze, No rales Cardiovascular: Regular rate, Regular Rhythm, Normal S1, Normal S2, No murmurs Abdomen: Soft, Non Tender, Non-Distended, No Hepato-splenomegaly Extremities: No edema, Capillary Refill Less than 3 Seconds Skin: No rashes, No breakdown Musculoskeletal: - - Left wrist in cast sensation in fingers, bilateral lower extremity mobile sensation intact Neurological: Neuro grossly intact, Sensory exam intact to light touch and pain Psych/Mental Status: Normal Affect, Appropriate Laboratory Results 12/30/18 05:44: WBC 6.5, RBC 3.70 L, Hgb 11.3 L, Hct 35.6 L, MCV 96.2, MCH 30.5, MCHC 31.7 L, RDW 14.6, RDW Differential 51.1 H, Plt Count 202, MPV 9.8, Immature Gran % (Auto) 0.600, Neut % (Auto) 60.3, Lymph % (Auto) 22.3, [place] % (Auto) 13.5 H, Eos % (Auto) 2.8, Baso % (Auto) 0.5, Absolute Neuts (auto) 3.9, Absolute Lymphs (auto) 1.44, Total Counted Not Reportable 12/30/18 05:44: PT 17.3 H, INR 1.4 12/30/18 05:44: Sodium 139, Potassium 4.7, Chloride 104, Carbon Dioxide 25.0, Anion Gap 10, BUN 26 H, Creatinine 1.05 H, Estim Creat Clear Calc 45.26, Est GFR (MDRD) Af Amer 65, Est GFR (MDRD) Non-Af 54 L, BUN/Creatinine Ratio 24.8 H, Glucose 100, Calcium 8.9 Current Medications Acetaminophen (Tylenol) 1,000 mg PO Q8 [facility] Last Admin: 12/30/18 05:55 Dose: 1,000 mg Albuterol Sulfate (Ventolin Aerosols) 2.5 mg INHALATION Q4H PRN PRN PRN Reason: Shortness of breath, wheezing Aspirin (Ecotrin) 81 mg PO DAILY@0800 [facility] Last Admin: 12/30/18 08:19 Dose: 81 mg Atorvastatin Calcium (Lipitor) 40 mg PO QHS [facility] Last Admin: 12/29/18 21:42 Dose: 40 mg Docusate Sodium (Colace) 100 mg PO BID [facility] Last Admin: 12/30/18 08:19 Dose: 100 mg Furosemide (Lasix) 20 mg PO BID [facility] Last Admin: 12/30/18 08:19 Dose: 20 mg Levothyroxine Sodium (Synthroid) 100 mcg PO DAILY@0600 [facility] Last Admin: 12/30/18 05:55 Dose: 100 mcg Lisinopril (Zestril) 5 mg PO DAILY [facility] Last Admin: 12/30/18 08:19 Dose: 5 mg Magnesium Hydroxide (Milk Of Magnesia) 30 ml PO DAILY PRN PRN PRN Reason: Constipation Metoprolol Tartrate (Lopressor (Beta Nanette)) 25 mg PO BID [facility] Last Admin: 12/30/18 08:20 Dose: 25 mg Morphine Sulfate () 2 mg IV Q3H PRN PRN PRN Reason: SEVERE PAIN (6-10/10) Nutritional Formula (Lactose Free) (Ensure Enlive) 120 ml PO 4X/DAY [facility] Last Admin: 12/30/18 08:24 Dose: 120 ml Ondansetron HCl (Zofran) 4 mg IV Q6H PRN PRN PRN Reason: NAUSEA/VOMITING Oxycodone HCl (Oxyir) 5 mg PO Q4H PRN PRN PRN Reason: SEVERE PAIN (6-10/10) Last Admin: 12/30/18 08:28 Dose: 5 mg Sodium Chloride () 5 - 15 ml IV UD PRN PRN Reason: SALINE FLUSH Spironolactone (Aldactone) 25 mg PO DAILY [facility] Last Admin: 12/30/18 08:20 Dose: 25 mg Warfarin Sodium (Coumadin (Pbkc)) 6 mg PO DAILY@1700 [facility]; Protocol Last Admin: 12/29/18 17:01 Dose: 6 mg Medical Necessity - Tobacco Use Smoking Status: Former smoker Assessment/Plan 1. A left distal radius fracture and left inferior and superior pubic rami fracture secondary to a mechanical fall -Left distal radius fracture is casted -Nonoperative intervention for the pubic rami fractures -Appreciate orthopedic input -Continue with PT/OT evaluation 2. 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 fib status post radiofrequency ablation -Continue with anticoagulation with warfarin, INR today is 1.4 -Continue with aspirin, Lipitor, Lasix, lisinopril, Lopressor, and Aldactone -SBP stable 3. COPD -They will not in exacerbation -Continue with home inhalers DVT: Coumadin Code Visit Inpatient E&M: 88438 Subs Hosp L2
--- NOTE | 2018-12-30 11:05 | PN_ITS ---
Subjective: Feels better, and her pain is will be better controlled. Vitals/I&O's: Vital Signs Temp Pulse Resp BP Pulse Ox 98.3 F 72 16 110/51 L 95 12/30/18 08:25 12/30/18 08:25 12/30/18 08:25 12/30/18 08:25 12/30/18 08:25 Oxygen Delivery Method Room Air Weight: 204 lb 12.951 oz Body Mass Index (BMI) 31.1 Intake and Output for Last 24 Hours 12/28/18 12/29/18 12/30/18 23:59 23:59 23:59 Intake Total 40 / 40 700 / 700 Output Total 650 / 650 1150 / 1150 Balance -610 / -610 -450 / -450 General: Alert, Oriented x3, Cooperative, No apparent distress HEENT: Atraumatic, EOMI, Normocephalic Oral: Moist Mucosa Neck: Supple, No JVD, Trachea Midline Lungs: Clear to auscultation, Normal air movement, No rhonchi, No wheeze, No rales Cardiovascular: Regular rate, Regular Rhythm, Normal S1, Normal S2, No murmurs Abdomen: Soft, Non Tender, Non-Distended, No Hepato-splenomegaly Extremities: No edema, Capillary Refill Less than 3 Seconds Skin: No rashes, No breakdown Musculoskeletal: - - Left wrist in cast sensation in fingers, bilateral lower extremity mobile sensation intact Neurological: Neuro grossly intact, Sensory exam intact to light touch and pain Psych/Mental Status: Normal Affect, Appropriate Laboratory Results 12/30/18 05:44: WBC 6.5, RBC 3.70 L, Hgb 11.3 L, Hct 35.6 L, MCV 96.2, MCH 30.5, MCHC 31.7 L, RDW 14.6, RDW Differential 51.1 H, Plt Count 202, MPV 9.8, Immature Gran % (Auto) 0.600, Neut % (Auto) 60.3, Lymph % (Auto) 22.3, [place] % (Auto) 13.5 H, Eos % (Auto) 2.8, Baso % (Auto) 0.5, Absolute Neuts (auto) 3.9, Absolute Lymphs (auto) 1.44, Total Counted Not Reportable 12/30/18 05:44: PT 17.3 H, INR 1.4 12/30/18 05:44: Sodium 139, Potassium 4.7, Chloride 104, Carbon Dioxide 25.0, Anion Gap 10, BUN 26 H, Creatinine 1.05 H, Estim Creat Clear Calc 45.26, Est GFR (MDRD) Af Amer 65, Est GFR (MDRD) Non-Af 54 L, BUN/Creatinine Ratio 24.8 H, Glucose 100, Calcium 8.9 Current Medications Acetaminophen (Tylenol) 1,000 mg PO Q8 [facility] Last Admin: 12/30/18 05:55 Dose: 1,000 mg Albuterol Sulfate (Ventolin Aerosols) 2.5 mg INHALATION Q4H PRN PRN PRN Reason: Shortness of breath, wheezing Aspirin (Ecotrin) 81 mg PO DAILY@0800 [facility] Last Admin: 12/30/18 08:19 Dose: 81 mg Atorvastatin Calcium (Lipitor) 40 mg PO QHS [facility] Last Admin: 12/29/18 21:42 Dose: 40 mg Docusate Sodium (Colace) 100 mg PO BID [facility] Last Admin: 12/30/18 08:19 Dose: 100 mg Furosemide (Lasix) 20 mg PO BID [facility] Last Admin: 12/30/18 08:19 Dose: 20 mg Levothyroxine Sodium (Synthroid) 100 mcg PO DAILY@0600 [facility] Last Admin: 12/30/18 05:55 Dose: 100 mcg Lisinopril (Zestril) 5 mg PO DAILY [facility] Last Admin: 12/30/18 08:19 Dose: 5 mg Magnesium Hydroxide (Milk Of Magnesia) 30 ml PO DAILY PRN PRN PRN Reason: Constipation Metoprolol Tartrate (Lopressor (Beta Nanette)) 25 mg PO BID [facility] Last Admin: 12/30/18 08:20 Dose: 25 mg Morphine Sulfate () 2 mg IV Q3H PRN PRN PRN Reason: SEVERE PAIN (6-10/10) Nutritional Formula (Lactose Free) (Ensure Enlive) 120 ml PO 4X/DAY [facility] Last Admin: 12/30/18 08:24 Dose: 120 ml Ondansetron HCl (Zofran) 4 mg IV Q6H PRN PRN PRN Reason: NAUSEA/VOMITING Oxycodone HCl (Oxyir) 5 mg PO Q4H PRN PRN PRN Reason: SEVERE PAIN (6-10/10) Last Admin: 12/30/18 08:28 Dose: 5 mg Sodium Chloride () 5 - 15 ml IV UD PRN PRN Reason: SALINE FLUSH Spironolactone (Aldactone) 25 mg PO DAILY [facility] Last Admin: 12/30/18 08:20 Dose: 25 mg Warfarin Sodium (Coumadin (Pbkc)) 6 mg PO DAILY@1700 [facility]; Protocol Last Admin: 12/29/18 17:01 Dose: 6 mg Medical Necessity - Tobacco Use Smoking Status: Former smoker Assessment/Plan 1. A left distal radius fracture and left inferior and superior pubic rami fracture secondary to a mechanical fall -Left distal radius fracture is casted -Nonoperative intervention for the pubic rami fractures -Appreciate orthopedic input -Continue with PT/OT evaluation 2. 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 fib status post radiofrequency ablation -Continue with anticoagulation with warfarin, INR today is 1.4 -Continue with aspirin, Lipitor, Lasix, lisinopril, Lopressor, and Aldactone -SBP stable 3. COPD -They will not in exacerbation -Continue with home inhalers DVT: Coumadin Code Visit Inpatient E&M: 63259 Subs Hosp L2
--- NOTE | 2018-12-30 11:31 | CASEMGMT ---
Addendum entered by Sydni House 12/30/18 14:38: SW updated pt on acceptance to [facility]. Pt's daughter Kenya present in room. Pt gave this worker permission to speak to her in front of her guest. Pt and Kenya updated on pt's acceptance to [facility] Sunday. Original Note: Addendum entered by Sydni House 12/30/18 12:11: SW received call from Madisyn at [facility] stating she is able to accept pt Sunday and asked if pt is submitting a claim as pt fell in parking lot. SW received another message from Madisyn stating she spoke with pt and pt states she is not submitting a claim. Madisyn confirms that she is able to accept pt Sunday. Original Note: Social Work Note updated this worker that pt is interested in [facility] at discharge. HOMER met with pt. SW introduced self and role at [facility]. Pt is alert and orientated x4. Pt confirms that she wishes to discharge to [facility]. SW explained Medicare requirements and pt will need three midnights or will be private pay for SNF. SW explained referral process. Pt states understanding. SW faxed referral to Madisyn at [facility]. SW placed a call to Madisyn and left her a message updating her on referral. Plan: [facility] Sunday pending acceptance Sydni House [employer]IGH [employer]CHOOL SOC[employer] STUDIES TEACHER, MANAGER TRANSITION
--- NOTE | 2018-12-30 16:51 | CHAPLAIN ---
Type of Pastoral Visit _x__ Initial Visit ___ Follow-up Visit ___ On-call Visit ___ General Patient Visit ___ Spiritual Assessment ___ Family Conference ___ Bereavement ___ Rapid Response ___ Code Blue ___ Other (describe below) Pastoral Care Referral From _x__ Patient ___ Family ___ Nurse ___ Physician ___ Custom Applicator ___ Lagging Machine Operator ___ Other (describe below) Sacrament/Intervention _x__ Active listening ___ Anointing ___ Jew ___ Bereavement ___ Communion ___ Keli exploration ___ ___ Life review _x__ Prayer ___ Reconciliation ___ Sacrament of Sick _x__ Supportive presence ___ Wedding ___ Other (describe below) Pastoral Comments
[2018-12-30] MEDS: Atorvastatin Calcium 40 MG Tablet PO (22:06)
[2018-12-31] VITALS (7 sets, daily range): BP systolic 106–113; BP diastolic 59–70; PULSE 70; RESP 16–18; TEMP 36.4–36.8; O2SAT 94–97
[2018-12-31] MEDS: oxyCODONE 5 MG Tablet PO ×4 (00:33→23:13)
[2018-12-31] MEDS: Levothyroxine 100 MCG Tablet PO (05:23)
[2018-12-31] MEDS: Acetaminophen 500 MG Tablet 1000 MG PO ×3 (05:24→21:20)
[2018-12-31 06:05] LABS: Basophil# 0.03 X10^3/uL; Basophil% 0.4 % (0-1); Eosinophil# 0.25 X10^3/uL; Eosinophils% 3.7 % (0-5); Hematocrit 41.1 % (37-47); Hemoglobin 13.4 g/dl (12.0-15.0); Lymphocyte % 25.3 % (19-41); Mean Corp Hgb Conc 32.6 g/gl (32-36); Mean Corpuscular Hgb 31.5 pg (27.0-32.0); Mean Corpuscular Volume 96.7 fL (81-99); Mean Platelet Vol. 9.7 fl (6.2-12.0); Monocyte# 0.74 X10^3/uL; Neutrophil # 3.96 X10^3/uL (2.7-7.7); Neutrophil % 58.9 % (47-70); Platelet Count 237 K/mm3 (150-450); RBC Distribution Width CV 14.4 % (11.6-14.6); RBC Distribution Width SD 48.5 fl (35.1-43.9); Red Blood Count 4.25 M/mm3 (4.2-5.4); White Blood Count 6.7 K/mm3 (4.4-11.0)
[2018-12-31 06:12] LABS: Anion Gap 9 (5-15); BUN 30 mg/dL (7-18); BUN/Creat Ratio 28.8 RATIO (10-20); Calcium,Total 9.5 mg/dL (8.5-10.1); Chloride 101 mmol/L (98-107); Creatinine, Serum 1.04 mg/dL (0.55-1.02); EST Glomerular Filtration Rate 55 mL/min (>60); Est Glom Filt Rate - Afr Amer 66 mL/min (>60); Glucose 103 mg/dL (74-106); Potassium 4.9 mmol/L (3.5-5.1); Sodium Level 136 mmol/L (136-145)
[2018-12-31 06:21] LABS: POSITIVE COUNT NO; POSITIVE DIFFERENTIAL NO; POSITIVE MORPHOLOGY NO
[2018-12-31] MEDS: Aspirin E.C. 81 MG Tablet PO (07:41)
[2018-12-31] MEDS: Docusate Sodium 100 MG Capsule PO ×2 (07:42→21:19)
[2018-12-31] MEDS: Lisinopril 5 MG Tablet PO (07:42)
[2018-12-31] MEDS: Metoprolol Tartrate 25 MG Tablet PO ×2 (07:42→21:19)
[2018-12-31] MEDS: Spironolactone 25 MG Tablet PO (07:42)
[2018-12-31] MEDS: Furosemide 20 MG Tablet PO ×2 (07:43→21:19)
--- NOTE | 2018-12-31 10:01 | PCM.PN.HOSP ---
Subjective: Pain is better controlled today and she was able to have a bowel movement. She denies any chest pain or shortness of breath Vitals/I&O's: Vital Signs Temp Pulse Resp BP Pulse Ox 97.6 F L 70 18 113/70 97 12/31/18 07:28 12/31/18 07:42 12/31/18 07:28 12/31/18 07:42 12/31/18 07:28 Oxygen Delivery Method Room Air Weight: 204 lb 12.951 oz Body Mass Index (BMI) 31.1 Intake and Output for Last 24 Hours 12/29/18 12/30/18 12/31/18 23:59 23:59 23:59 Intake Total 40 / 40 1200 / 1200 500 / 500 Output Total 650 / 650 1700 / 1700 1250 / 1250 Balance -610 / -610 -500 / -500 -750 / -750 General: Alert, Oriented x3, Cooperative, No apparent distress HEENT: Atraumatic, EOMI, Normocephalic Oral: Moist Mucosa Neck: Supple, No JVD, Trachea Midline Lungs: Clear to auscultation, Normal air movement, No rhonchi, No wheeze, No rales Cardiovascular: Regular rate, Regular Rhythm, Normal S1, Normal S2, No murmurs Abdomen: Soft, Non Tender, Non-Distended, No Hepato-splenomegaly Extremities: No edema, Capillary Refill Less than 3 Seconds Skin: No rashes, No breakdown Musculoskeletal: - - Left wrist in cast sensation in fingers, bilateral lower extremity mobile sensation intact Neurological: Neuro grossly intact, Sensory exam intact to light touch and pain Psych/Mental Status: Normal Affect, Appropriate Laboratory Results 12/31/18 05:40: WBC 6.7, RBC 4.25, Hgb 13.4, Hct 41.1, MCV 96.7, MCH 31.5, MCHC 32.6, RDW 14.4, RDW Differential 48.5 H, Plt Count 237, MPV 9.7, Immature Gran % (Auto) 0.700, Neut % (Auto) 58.9, Lymph % (Auto) 25.3, [place] % (Auto) 11.0 H, Eos % (Auto) 3.7, Baso % (Auto) 0.4, Absolute Neuts (auto) 4.0, Absolute Lymphs (auto) 1.70, Total Counted Not Reportable 12/31/18 05:40: Sodium 136, Potassium 4.9, Chloride 101, Carbon Dioxide 26.0, Anion Gap 9, BUN 30 H, Creatinine 1.04 H, Estim Creat Clear Calc 45.70, Est GFR (MDRD) Af Amer 66, Est GFR (MDRD) Non-Af 55 L, BUN/Creatinine Ratio 28.8 H, Glucose 103, Calcium 9.5 Current Medications Acetaminophen (Tylenol) 1,000 mg PO Q8 PENDING SALE TO [facility] Last Admin: 12/31/18 05:24 Dose: 1,000 mg Albuterol Sulfate (Ventolin Aerosols) 2.5 mg INHALATION Q4H PRN PRN PRN Reason: Shortness of breath, wheezing Aspirin (Ecotrin) 81 mg PO DAILY@0800 [facility]END[facility] Last Admin: 12/31/18 07:41 Dose: 81 mg Atorvastatin Calcium (Lipitor) 40 mg PO QHS [facility]END[facility] Last Admin: 12/30/18 22:06 Dose: 40 mg Docusate Sodium (Colace) 100 mg PO BID [facility] Last Admin: 12/31/18 07:42 Dose: 100 mg Furosemide (Lasix) 20 mg PO BID [facility] Last Admin: 12/31/18 07:43 Dose: 20 mg Levothyroxine Sodium (Synthroid) 100 mcg PO DAILY@0600 [facility]END[facility] Last Admin: 12/31/18 05:23 Dose: 100 mcg Lisinopril (Zestril) 5 mg PO DAILY [facility] Last Admin: 12/31/18 07:42 Dose: 5 mg Magnesium Hydroxide (Milk Of Magnesia) 30 ml PO DAILY PRN PRN PRN Reason: Constipation Metoprolol Tartrate (Lopressor (Beta Nanette)) 25 mg PO BID [facility] Last Admin: 12/31/18 07:42 Dose: 25 mg Morphine Sulfate () 2 mg IV Q3H PRN PRN PRN Reason: SEVERE PAIN (6-10/10) Nutritional Formula (Lactose Free) (Ensure Enlive) 120 ml PO 4X/DAY [facility]END[facility] Last Admin: 12/31/18 07:43 Dose: 120 ml Ondansetron HCl (Zofran) 4 mg IV Q6H PRN PRN PRN Reason: NAUSEA/VOMITING Oxycodone HCl (Oxyir) 5 mg PO Q4H PRN PRN PRN Reason: SEVERE PAIN (6-10/10) Last Admin: 12/31/18 05:24 Dose: 5 mg Sodium Chloride () 5 - 15 ml IV UD PRN PRN Reason: SALINE FLUSH Spironolactone (Aldactone) 25 mg PO DAILY [facility] Last Admin: 12/31/18 07:42 Dose: 25 mg Warfarin Sodium (Coumadin (Pbkc)) 6 mg PO DAILY@1700 [facility]; Protocol Last Admin: 12/30/18 17:49 Dose: 6 mg Medical Necessity - Tobacco Use Smoking Status: Former smoker Assessment/Plan 1. A left distal radius fracture and left inferior and superior pubic rami fracture secondary to a mechanical fall -Left distal radius fracture is casted -Nonoperative intervention for the pubic rami fractures -Appreciate orthopedic input -Continue with PT/OT evaluation -Plan for discharge to [facility] tomorrow 2. 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 fib status post radiofrequency ablation -Continue with anticoagulation with warfarin -Continue with aspirin, Lipitor, Lasix, lisinopril, Lopressor, and Aldactone -SBP stable 3. COPD -They will not in exacerbation -Continue with home inhalers DVT: Coumadin Code Visit Inpatient E&M: 27690 Subs Hosp L2
--- NOTE | 2018-12-31 10:40 | CASEMGMT ---
Social Work Note Physician updated that pt is able to discharge to [facility] tomorrow. Plan: [facility] tomorrow Sydni House CLEAT BLANKER, PRODUCT TESTER
[2018-12-31] MEDS: Atorvastatin Calcium 40 MG Tablet PO (21:19)
[2019-01-01 02:49] VITALS: BP 114/67; PULSE 70; RESP 18; TEMP 36.6; O2SAT 95
[2019-01-01] MEDS: Acetaminophen 500 MG Tablet 1000 MG PO (06:24)
[2019-01-01] MEDS: Levothyroxine 100 MCG Tablet PO (06:24)
[2019-01-01] MEDS: Aspirin E.C. 81 MG Tablet PO (08:12)
[2019-01-01] MEDS: Magnesium Hydroxide 30 ML UDC PO (08:13)
[2019-01-01 08:49] VITALS: BP 114/72; PULSE 70; RESP 18; TEMP 36.4; O2SAT 95
--- NOTE | 2019-01-01 08:50 | PCM.TXEXTCAR ---
- Diet 12/29/18 04:24 Diet: Cardiac/Low Cholesterol Food consistency:: Regular Liquid Consistency:: Regular/Thin - Routine Orders/Code Status Routine Lab Work: INR Code Status: Full Code - Wound(s) BILATERAL LOWER EXTREMITIES Wound Type: abrasions/scabs - Therapies Weight Bearing: Weight bearing as tolerated Physical Therapy: Eval and Treat Occupational Therapy: Eval and Treat - Allergies/Procedures Done in Hospital Allergies/Adverse Reactions: Allergies No Known Allergies Allergy (Verified 09/17/18 11:48) - Type of Care/Length of Stay Estimated LOS: Convalescent Care Less Than 30 days Type of Care Needed: Skilled Rehab Potential: Good Prognosis: Good - Additional Orders/Day of Discharge Day of Discharge: 01/01/19 - Dietary and Speech Recommendations Dietitian Recommendations/Changes: Recommend cardiac diet with 1800 calorie restriction d/t increased BMI. - Follow Up Care Primary Care Physician: Davis Lopez DO [Primary Care Provider] - Please follow up with your Primary Care Physician in: 3-5 days
--- NOTE | 2019-01-01 08:57 | DS.PCM_ITS ---
Discharge Date and Diagnosis Date of Admission: 12/29/18 Date of Discharge: 01/01/19 - Secondary Discharge Diagnosis Chronic Problems (Last Reviewed 09/17/18 @ 12:13 by Elijah West MD) Cardiomyopathy (Chronic) EF 45% Complete heart block (Chronic) Presence of cardiac pacemaker (Chronic) snf (current) use of anticoagulants (Chronic) Benign hypertension (Chronic) Hx of CABG (Chronic) for Ablation Complication CAD (coronary artery disease) (Chronic) S/P to proximal and ostial RCA stent in June 2009; COPD (chronic obstructive pulmonary disease) (Chronic) HLD (hyperlipidemia) (Chronic) Osteoarthritis (Chronic) History of prior ablation treatment (Chronic) 2008 History of coronary artery stent placement (Chronic) S/P stent to proximal and ostial RCA stent in June 2009; Paroxysmal atrial fibrillation (Chronic) Hospital Course and Treatment Imaging Results: L Hip XR: IMPRESSION: 1. Left superior and inferior pubic rami fractures. 2. Mild bilateral hip osteoarthritic change, left greater than right. L Wrist XR: IMPRESSION: Distal radial interarticular and ulnar styloid fracture with similar appearance compared to previous with overlying casting material. L Forearm XR: IMPRESSION: Minimally displaced fractures of the radial and ulnar styloids. A fiberglass cast was used for external stabilization. Degenerative changes involving the first carpometacarpal joint. Consults: Orthopedics Operations: None Procedures: None Summary of Care Provided: Per HPI: The patient is a 78 year old F with past medical history as mentioned above presented to the emergency room because of left hip pain. Patient was in [place] for vacation over the last week, had a mechanical fall in the parking lot and she went to emergency room back in [place] and she was found to have left wrist fracture as well as was and she was given oral analgesics and she was discharged home. Tonight, she flew back from [place] to [place] area where she lives and she came to the emergency room. Her main presenting complaint today is the left hip pain which has been going on for since she had a fall 6 days ago, pain comes on only when she is standing or walking, sharp pain, 10 out of 10 in severity, not radiating, aggravated by putting weight on his feet as well as walking, relieved by rest and without significant associated symptoms. Also, she complained of left wrist pain that has been going on for the same duration. Back in [place], she had a cast put on her left wrist by orthopedics and she was informed that her pelvic fracture was nonoperative. In the emergency department, her blood pressure was slightly elevated, other vital signs were stable. Her routine blood work was remarkable for hemoglobin of 11.9 g/dL, BUN of 29 which is chronic, otherwise normal. LFT was normal. INR was 1.6. X-ray of the hip and pelvis revealed left superior and inferior pubic rami fractures. Chest x-ray showed no acute findings, showed mild cardiomegaly. She is being admitted for intractable pelvic pain due to left superior and inferior pubic rami fractures as well as left wrist fracture and patient will probably need placement to [facility] facility. Hospital Course: 1. Left distal radius fracture and left inferior and superior pubic rami fracture secondary to mechanical [id number] female who was in [place] last week with to an urgent care and was found to have a left wrist fracture which they casted, she came to the ER here in [place] because of continued hip pain. On x-ray she had superior and inferior left pubic rami fractures. Orthopedics was consulted and said that the fractures were nonoperative however they recommended that she go to a f[facility] facility for continued rehab. At the moment she is weightbearing as tolerated and has been doing well with pain management with oxycodone. She will be discharged to a fpc facility today for continued therapy. 2. HTN/CAD status post CABG/complete heart block with pacemaker/mild ischemic cardiomyopathy with an EF of 45%/HLD/A. fib status post radiofrequency ablation- currently all of her cardiac issues are stable and we will continue with all of her home medications. She is on Coumadin and will need to have an INR checked on January 02 or , as she was not therapeutic during her stay. 3. Her other medical diagnoses were evaluated and her home medications were continued were appropriate Objective: General: Alert, Oriented x3, Cooperative, No apparent distress HEENT: Atraumatic, EOMI, Normocephalic Oral: Moist Mucosa Neck: Supple, No JVD, Trachea Midline Lungs: Clear to auscultation, Normal air movement, No rhonchi, No wheeze, No rales Cardiovascular: Regular rate, Regular Rhythm, Normal S1, Normal S2, No murmurs Abdomen: Soft, Non Tender, Non-Distended, No Hepato-splenomegaly Extremities: No edema, Capillary Refill Less than 3 Seconds Skin: No rashes, No breakdown Musculoskeletal: - - Left wrist in cast sensation in fingers, bilateral lower extremity mobile sensation intact Neurological: Neuro grossly intact, Sensory exam intact to light touch and pain Psych/Mental Status: Normal Affect, Appropriate - Physical Exam Vital Signs Temp Pulse Resp BP Pulse Ox 97.9 F 70 18 114/67 95 01/01/19 02:49 01/01/19 02:49 01/01/19 02:49 01/01/19 02:49 01/01/19 02:49 Oxygen Delivery Method Room Air Weight: 204 lb 12.951 oz Body Mass Index (BMI) 31.1 Intake and Output for Last 24 Hours 12/30/18 12/31/18 01/01/19 23:59 23:59 23:59 Intake Total 1200 / 1200 1760 / 1760 560 / 560 Output Total 1700 / 1700 2150 / 2150 1200 / 1200 Balance -500 / -500 -390 / -390 -640 / -640 Home Medications: Medications to take at Discharge Aspirin E.C. [Ecotrin] 81 mg PO QHS 09/08/14 ipratropium bromide 42 mcg (0.06 %) nasal spray See Protocol INTRANASAL DAILY 20 Days #15 10/31/17 levothyroxine 100 mcg tablet 100 mcg PO QDAY 04/19/18 lisinopril 5 mg tablet 5 mg PO DAILY #90 tab 07/23/18 Atorvastatin Calcium [Lipitor] 40 mg PO QHS 08/20/18 Warfarin [Coumadin] 6 mg PO DAILY 08/20/18 spironolactone 25 mg tablet 25 mg PO DAILY #90 tab 10/03/18 torsemide 10 mg tablet 10 mg PO BID #180 tab 10/03/18 metoprolol tartrate 50 mg tablet 25 mg PO BID #90 tab 10/04/18 Acetaminophen with Codeine [Acetaminophen-Cod #3 Tablet] 2 tab PO Q4H PRN PRN 12/29/18 Docusate Sodium [Colace] 100 mg PO BID capsule 01/01/19 Oxycodone [Oxyir] 5 mg PO Q4H PRN PRN 3 Days #10 tab 01/01/19 Following Prescrptions Were Given to Patient: Oxycodone [Oxyir] 5 mg PO Q4H PRN PRN 3 Days #10 tab PRN Reason: Severe Pain (6-08/07) Primary Care Physician: Davis Lopez DO [Primary Care Provider] - Please follow up with your Primary Care Physician in: 3-5 days Disposition: [facility] facility Minutes spent on discharge:: 35 Patient Condition:: Good Medical Necessity - Tobacco Use Smoking Status: Former smoker Meaningful Use Info Meaningful Use Diagnoses (Choose all that apply): None applicable Code Visit Inpatient E&M: 78820 Disch Hosp
--- NOTE | 2019-01-01 09:20 | CASEMGMT ---
Social Work Note Pt is discharging today. HOMER faxed completed discharge paperwork to [facility] including transfer to extended care facility, signed medication list and any scripts. Originals in SNF folder and copy on pt's chart. HOMER completed convalescent 7000 in [facility]. Originals in SNF folder and copy on pt's chart. SW in to update pt on discharge today. Pt states that she will be calling her friend to determine if her friend is able to transport pt. [employer] INTELLIGENCE OFFICER CHIEF updated this worker that pt's friend will be transporting pt around 10:00am. HOMER placed a call to Madisyn at [facility] and updated her on transportation time. Plan: Pt to discharge to [facility] skilled today with pt's friend transporting Sydni House STAMP MOUNTER, HOME TEACHING GRADES 9 THRU 12 TEACHER
[2019-01-01] MEDS: oxyCODONE 5 MG Tablet PO (09:55)
[2019-01-01 09:56] VITALS: BP 114/72; PULSE 70
[2019-01-01] MEDS: Metoprolol Tartrate 25 MG Tablet PO (09:56)
[2019-01-01] MEDS: Docusate Sodium 100 MG Capsule PO (09:56)
[2019-01-01] MEDS: Furosemide 20 MG Tablet PO (09:56)
[2019-01-01] MEDS: Spironolactone 25 MG Tablet PO (09:56)
[2019-01-01] MEDS: Lisinopril 5 MG Tablet PO (09:56)
[2019-01-01 10:24] VITALS: BP 114/72; PULSE 70; RESP 18; TEMP 36.8; O2SAT 98
== END 2019-01-01 10:29 | disposition skilled nursing facility (03) | DRG 536 ==
LOC: ED 03:18 → MS3 04:01
PROVIDERS: Admitting Provider Hospitalist; Emergency Provider Emergency Medicine; Family Provider Family Medicine; PCP Family Medicine; Referring Provider Hospitalist; Visit Provider Family Medicine
DX: S32.512A Fracture of superior rim of left pubis, initial encounter for closed fracture (principal); S52.572A Other intraarticular fracture of lower end of left radius, initial encounter for closed fracture; I50.22 Chronic systolic (congestive) heart failure; I44.2 Atrioventricular block, complete; S52.512A Displaced fracture of left radial styloid process, initial encounter for closed fracture; S52.612A Displaced fracture of left ulna styloid process, initial encounter for closed fracture; S32.592A Other specified fracture of left pubis, initial encounter for closed fracture; W19.XXXA Unspecified fall, initial encounter; Y92.481 Parking lot as the place of occurrence of the external cause; I25.10 Atherosclerotic heart disease of native coronary artery without angina pectoris; I48.0 Paroxysmal atrial fibrillation; Z95.1 Presence of aortocoronary bypass graft; Z79.01 Long term (current) use of anticoagulants; Z79.899 Other long term (current) drug therapy; Z95.5 Presence of coronary angioplasty implant and graft; Z87.891 Personal history of nicotine dependence; I25.5 Ischemic cardiomyopathy; E78.5 Hyperlipidemia, unspecified; J44.9 Chronic obstructive pulmonary disease, unspecified; I11.0 Hypertensive heart disease with heart failure; Z95.0 Presence of cardiac pacemaker; E66.9 Obesity, unspecified; Z68.31 Body mass index [BMI] 31.0-31.9, adult; M19.90 Unspecified osteoarthritis, unspecified site
CPT/HCPCS: 36415; 71045; 73090; 73100; 73502; 80048; 80053; 85025; 85610; 97110; 97116; 97161; 97166; 97530; 99284; A4216; J2405

== ENCOUNTER 2019-01-20 14:49 | Outpatient (RCR) | payer MEDICARE, SELFPAY ==
[2018-09-17 11:47] VITALS: BMI 29.7
[2018-12-29 04:30] VITALS: BMI 31.1
[2019-01-20 18:33] LABS: International Normalized Ratio 2.8; Prothrombin Time (Protime)PT. 29.4 SECONDS (11.7-14.9)
== END 2019-01-20 15:00 | disposition home or self-care (01) ==
LOC: MTLAB 14:49
PROVIDERS: Family Provider Family Medicine; PCP Family Medicine; Referring Provider Internal Medicine Cardiovascular Disease; Visit Provider Internal Medicine Cardiovascular Disease
DX: I48.0 Paroxysmal atrial fibrillation (principal); Z79.01 Long term (current) use of anticoagulants
CPT/HCPCS: 36415; 85610

== ENCOUNTER 2019-02-25 08:44 | Outpatient (RCR) | payer MEDICARE, OTHER, SELFPAY ==
[2018-12-29 04:30] VITALS: BMI 31.1
[2019-02-10 10:22] LABS: International Normalized Ratio 3.1; Prothrombin Time (Protime)PT. 31.7 SECONDS (11.7-14.9)
[2019-02-25 10:14] LABS: International Normalized Ratio 2.8; Prothrombin Time (Protime)PT. 29.5 SECONDS (11.7-14.9)
== END 2019-02-25 16:00 | disposition home or self-care (01) ==
LOC: MTLAB 08:44
PROVIDERS: Family Provider Family Medicine; PCP Family Medicine; Referring Provider Internal Medicine Cardiovascular Disease; Visit Provider Internal Medicine Cardiovascular Disease
DX: I48.0 Paroxysmal atrial fibrillation (principal); Z79.01 Long term (current) use of anticoagulants
CPT/HCPCS: 36415; 85610

== ENCOUNTER → 2019-03-04 09:23 | Outpatient (CLI) | payer MEDICARE, OTHER, SELFPAY ==
[2019-03-04 09:22] VITALS: BMI 30.4
--- NOTE | 2019-03-04 09:26 | RAD_ITS ---
We are attempting to reach an attending provider to discuss findings. An addendum with communication details will be sent when the communication is complete. STUDY: X-RAY CHEST REASON FOR EXAM: Female, 78 years old. Dyspnea on exertion. TECHNIQUE: PA and lateral views of the chest. COMPARISON: Comparison is made with prior study dated December 29, 2018. FINDINGS: Hyperinflation. The lungs are clear. There is no demonstrated pleural abnormality. Sternal cerclage wires and vascular clips are present from a prior sternotomy and coronary artery bypass graft procedure (CABG). A left-sided dual-chamber pacemaker is seen. Normal mediastinum and linda. Normal visualized pulmonary arteries. There is atherosclerotic calcification of the aortic arch with tortuosity. There are diffuse degenerative changes of the visualized thoracic spine. Normal visualized ribs, clavicles, and shoulders. There is no demonstrated abnormality of the visualized soft tissue structures of the upper abdomen. RAD/Chest PA and Lateral IMPRESSION: Hyperinflation. No acute abnormality is seen. Pending Final Proof Editing
[2019-03-04 10:54] LABS: BNP,B-Type NATRIURETIC PEPTIDE 240.6 pg/mL (0-100)
[2019-03-04 11:49] LABS: Absolute Lymphocyte Count 1.22 X10^3/ul (0.83-4.51); Absolute Neutrophil Count 3.3 X10^3/uL (2.0-7.7); Basophil# 0.02 X10^3/uL; Basophil% 0.4 % (0-1); Eosinophil# 0.14 X10^3/uL; Eosinophils% 2.6 % (0-5); Hematocrit 41.2 % (37-47); Hemoglobin 13.8 g/dl (12.0-15.0); Lymphocyte # 1.22 X10^3/ul (4.0); Lymphocyte % 22.6 % (19-41); Mean Corp Hgb Conc 33.5 g/gl (32-36); Mean Corpuscular Hgb 31.4 pg (27.0-32.0); Mean Corpuscular Volume 93.8 fL (81-99); Mean Platelet Vol. 9.7 fl (6.2-12.0); Monocyte# 0.69 X10^3/uL; Monocyte% 12.8 % (0-10); Neutrophil # 3.33 X10^3/uL (2.7-7.7); Neutrophil % 61.4 % (47-70); Platelet Count 201 K/mm3 (150-450); RBC Distribution Width SD 43.5 fl (35.1-43.9); Red Blood Count 4.39 M/mm3 (4.2-5.4); White Blood Count 5.4 K/mm3 (4.4-11.0)
[2019-03-04 11:50] LABS: POSITIVE COUNT NO; POSITIVE DIFFERENTIAL NO; POSITIVE MORPHOLOGY NO
== END ==
PROVIDERS: Family Provider Family Medicine; PCP Family Medicine; Referring Provider Physician Assistant Medical; Visit Provider Physician Assistant Medical
DX: R06.09 Other forms of dyspnea (principal); R53.83 Other fatigue; I43 Cardiomyopathy in diseases classified elsewhere
CPT/HCPCS: 36415; 71046; 83880; 85025

== ENCOUNTER → 2019-03-07 08:38 | Outpatient (CLI) | payer MEDICARE, OTHER, SELFPAY ==
[2018-12-29 04:30] VITALS: BMI 31.1
[2019-03-04 09:22] VITALS: BMI 30.4
--- NOTE | 2019-03-07 08:40 | BI_ITS ---
MAMMOGRAPHY - BILATERAL SCREENING REASON FOR EXAM: Female, 78 years old. Routine annual screening examination. PERTINENT HISTORY: Mother with breast cancer. TECHNIQUE: Digital bilateral breast darlnee (3D mammographic acquisition) in the CC and MLO projections. 2-D mediolateral oblique (MLO) and craniocaudad (CC) views of both breasts were obtained. CAD: Full Field Digital Mammography with Computer Added Detection was performed. COMPARISON: Comparison is made with prior study dated February 19, 2018 and February 06, 2017. FINDINGS: Breast Composition: The breasts are heterogeneously dense, which may obscure small masses. There are no dominant masses or suspicious calcifications. A pacemaker battery pack is once again seen in the axillary region of the left breast No other significant abnormalities are identified. There has been no significant change since the prior study. BI/SCREENING MAMM (CAD), BILAT IMPRESSION: Stable bilateral screening mammogram. Yearly follow-up mammogram recommended. (A) ASSESSMENT CATEGORY: BIRADS Category 1: Negative. A letter regarding these results will be sent to the patient by the facility within 30 days. Approximately 10% of breast cancers are not detected by mammography. A normal mammogram should not delay biopsy of a clinically suspicious abnormality. [id number] Electronically Signed: Cyril Oneil, at 10:58 EDT , Service support ,
== END ==
PROVIDERS: Family Provider Family Medicine; PCP Family Medicine; Referring Provider Family Medicine; Visit Provider Family Medicine
DX: Z12.31 Encounter for screening mammogram for malignant neoplasm of breast (principal); Z80.3 Family history of malignant neoplasm of breast
CPT/HCPCS: 77063; 77067

== ENCOUNTER 2019-03-13 08:35 | Outpatient (RCR) | payer MEDICARE, OTHER, SELFPAY ==
[2019-03-04 09:22] VITALS: BMI 30.4
[2019-03-13 10:07] LABS: International Normalized Ratio 2.9; Prothrombin Time (Protime)PT. 30.2 SECONDS (11.7-14.9)
[2019-03-13 10:27] LABS: AST(SGOT) 24 U/L (15-37); Alanine Aminotransfer ALT/SGPT 27 U/L (13-56); Albumin, Serum 3.8 g/dL (3.2-5.0); Alkaline Phosphatase 83 U/L (45-117); Bilirubin, Direct 0.17 mg/dL (0.00-0.30); Cholesterol 163 mg/dL (200); Globulin 3.9 g/dL (2.2-4.2); High Density Lipoprotein 38 mg/dL; Protein, Total 7.7 g/dL (6.4-8.2); Triglycerides 223 mg/dL; Very Low Density Lipoprotein 45 mg/dL (5-40)
== END 2019-03-13 10:00 | disposition home or self-care (01) ==
LOC: MTLAB 08:35
PROVIDERS: Physician Assistant Medical; Family Provider Family Medicine; PCP Family Medicine; Referring Provider Internal Medicine Cardiovascular Disease; Visit Provider Internal Medicine Cardiovascular Disease
DX: I48.0 Paroxysmal atrial fibrillation (principal); Z79.01 Long term (current) use of anticoagulants; E78.5 Hyperlipidemia, unspecified
CPT/HCPCS: 36415; 80061; 80076; 85610

== ENCOUNTER → 2019-03-19 07:44 | Outpatient (CLI) | payer MEDICARE, OTHER, SELFPAY ==
[2019-03-04 09:22] VITALS: BMI 30.4
[2019-03-17 13:23] VITALS: BMI 30.4
--- NOTE | 2019-03-19 07:47 | ECHOCS_ITS ---
Reason For Study: Dyspnea/SOB Procedure This was a 2D Doppler, Color Flow transthoracic echocardiogram. Exam performed in department. Left Ventricle Normal LV size. The estimated ejection fraction is 50 %. Stage 3 diastolic dysfunction. No regional wall motion abnormalities noted. Right Ventricle Moderately dilated right ventricle. Mild global right ventricular systolic dysfunction. Atria The left atrium is mildly enlarged. The right atrium is severely enlarged. ICD or pacer leads identified within the right atrium. Mitral Valve Normal mitral valve. Mild (1+) mitral valve insufficiency. Tricuspid Valve Normal tricuspid valve. Mild tricuspid valve insufficiency. Pulmonary artery systolic pressure is 42 mmHg. Aortic Valve Trisinus/trileaflet aortic valve. Mild focal aortic valve calcification. Mild aortic stenosis. Mild (1+) aortic valve insufficiency. Pulmonic Valve Normal pulmonic valve. Trivial pulmonic valve insufficiency. Great Vessels Normal aortic root. The pulmonary artery is normal size. Normal inferior vena cava. Pericardium/Pleural No pericardial effusion. Medication Diluted definity 4ml given slow IV push to enhance endocardial definition. MMode/2D Measurements & Calculations LVIDd: 4.5 cm IVSd: 1.1 cm LVOT diam: 2.0 cm LVIDs: 2.9 cm LVPWd: 1.1 cm RVDd: 6.3 cm FS: 36.2 % LVOT area: 3.1 cm2 Ao root diam: 3.3 cm LAV(MOD-bp): 86.5 ml LA A4 area: 26.6 cm2 LAV(MOD-bp) Indexed: 42.3 ml/m2 LAV(MOD-sp2): 78.6 ml LAV(MOD-sp4): 81.2 ml LA dimension(2D): 4.5 cm RA A4 area: 39.5 cm2 Doppler Measurements & Calculations MV E max umer: 115.6 cm/sec Lat Peak E' Umer: 11.2 cm/sec Med Peak E' Umer: 7.1 cm/sec MV A max umer: 27.8 cm/sec E/E' lat: 10.3 E/E' med: 16.3 MV E/A: 4.2 Ao V2 max: 192.9 cm/sec AI max umer: 385.3 cm/sec LV V1 max: 95.6 cm/sec Ao max P.9 mmHg AI max P.4 mmHg LV V1 max P.7 mmHg Ao V2 mean: 132.8 cm/sec AI dec slope: 188.9 cm/sec2 LV V1 mean P.0 mmHg Ao mean P.9 mmHg AI P1/2t: 597.4 msec LV V1 mean: 66.0 cm/sec Ao V2 VTI: 38.3 cm LV V1 VTI: 19.0 cm FINN(I,D): 1.5 cm2 FINN(V,D): 1.5 cm2 SV(LVOT): 58.9 ml PA V2 max: 70.3 cm/sec PI end-d umer: 121.3 cm/sec TR max umer: 305.5 cm/sec TR max P.3 mmHg Interpretation Summary Normal LV size. The estimated ejection fraction is 50 %. Stage 3 diastolic dysfunction. The left atrium is mildly enlarged. The right atrium is severely enlarged. Mild focal aortic valve calcification. Ordering Physician: Ingrid Lopez Referring Physician: Davis Lopez Performed By: Teagan No, GLEN, RVT
== END ==
PROVIDERS: Family Provider Family Medicine; PCP Family Medicine; Referring Provider Physician Assistant Medical; Visit Provider Physician Assistant Medical
DX: R06.09 Other forms of dyspnea (principal); R53.83 Other fatigue; I43 Cardiomyopathy in diseases classified elsewhere
CPT/HCPCS: 93306; Q9957; A4216; C8929

== ENCOUNTER 2019-04-04 09:00 | Outpatient (RCR) | payer MEDICARE, OTHER, SELFPAY ==
[2019-02-18 10:42] VITALS: BMI 30.4
[2019-02-26 11:09] VITALS: BMI 31.1
--- NOTE | 2019-03-06 07:43 | HP.OTEVAL_ITS ---
Patient's Visit Information KIM CAZARES is a 78 year old F, referred to Occupational Therapy by Michael Castillo DO, with a diagnosis of left wrist fx.. Date of Evaluation: 03/03/19 Occupational Therapist: WAYNE Brian/Radha, CHT - Subjective Subjective: This 78 year old female was seen for initial OT eval with dx of left wrist fx. Pt states while in [place] she suffered a fall and fx her pelvis and left wrist. pt flew home and went to ER. Pt in cast for about 4 weeks. pt in brace now, states she is having difficulty with daily tasks- pain and limited ROM is most bothersome for pt. Pt golfs and would like to return to golfing before summer is over. 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 Pt will demo an increase in lateral and tripod pinch by 2# to increase pts independent with opening baggies, containers at PLOF by D/C. Goal:: Pt will demo an increase in wrist ROM equal to unaffected wrist to return pt to PLOF with grooming, dressing and home mtg tasks by D/C. Goal:: Pt will report pain no greater than 1/10 with use of affected hand with BADLs and IADLs by d/c. - Rehabilitation General Assessment: PT demo with limited left wrist and forearm ROM, weakness and pain decreasing pts ind. with ADLs and IADL tasks. Pt would benefit from skilled OT services 2-3 x week for 4 weeks to return pt to PLOF. Today pt was ed. on PROM ex, ice and wrist mechanics. PT demo understanding and agrees to POD. Rehabilitation Potential: Good - Anticipated Interventions Anticipated Interventions: A/AAROM/PROM, Strengthening, Modalities, Orthoses, Joint Protection/Energy Conservation, Ergonomic Education, Fine Motor Coord/Dat - Visit Plan Frequency: 2-3x /Week Duration: 4 Weeks TEXT: Thank you for the opportunity to evaluate your patient. For Medicare and Medicare HMO plans, please review the plan of care and approve it. It will need to be FAXED BACK to us at [phone] for Medicare purposes. Please let me know if there are questions or concerns regarding this plan of care. Physician Signature: Date:
--- NOTE | 2019-05-12 12:42 | HP.OT.NRP ---
HP - Discharge Summary - Patient Information KIM CAZARES was seen in my office for initial evaluation on 03/03/19. The following Plan of Care was established for this patient: Initial Frequency: 2-3x /Week Initial Duration: 4 Weeks Plan: check pts strength cont with decrease pain. improve strength and ROM - Anticipated Interventions Anticipated Interventions: A/AAROM/PROM, Strengthening, Modalities, Orthoses, Joint Protection/Energy Conservation, Ergonomic Education, Fine Motor Coord/Dat This patient was last seen in our office 04/04/19. Pertinent comments regarding their Occupational therapy will appear below: Pt was seen for 7 OT visits and made good gains. pt struggled with wrist pain with supination and thumb pain- pt was ed.on HEP to cont to work on end range of motion. pt ed. on joint protection for her golfing. pt has not scheduled further apts and is d/c due to time lapse in services. At this point I will be discontinuing this patient from occupational therapy. I would be happy to see this patient again in the future if found appropriate by the physician. Thank you! Ingrid Aviles, OTR/L, CHT
== END 2019-04-04 19:00 | disposition home or self-care (01) ==
LOC: OT 09:00
PROVIDERS: Family Provider Family Medicine; PCP Family Medicine; Referring Provider Orthopaedic Surgery; Visit Provider Orthopaedic Surgery
DX: S52.572D Other intraarticular fracture of lower end of left radius, subsequent encounter for closed fracture with routine healing (principal)
CPT/HCPCS: 97035; 97110; 97140; 97166; 97530

== ENCOUNTER 2019-04-23 08:34 | Outpatient (RCR) | payer MEDICARE, OTHER, SELFPAY ==
[2019-03-17 13:23] VITALS: BMI 30.4
[2019-04-03 10:15] LABS: International Normalized Ratio 3.2; Prothrombin Time (Protime)PT. 32.6 SECONDS (11.7-14.9)
[2019-04-03 10:39] LABS: Anion Gap 6 (5-15); BUN 18 mg/dL (7-18); BUN/Creat Ratio 18.7 RATIO (10-20); Calcium,Total 8.9 mg/dL (8.5-10.1); Chloride 106 mmol/L (98-107); Creatinine, Serum 0.96 mg/dL (0.55-1.02); EST Glomerular Filtration Rate 60 mL/min (>60); Est Glom Filt Rate - Afr Amer 72 mL/min (>60); Glucose 109 mg/dL (74-106); Potassium 4.2 mmol/L (3.5-5.1); Sodium Level 139 mmol/L (136-145); Thyroid Stim Hormone (TSH) 0.81 uIU/mL (0.358-3.74)
[2019-04-23 10:22] LABS: International Normalized Ratio 2.1; Prothrombin Time (Protime)PT. 23.5 SECONDS (11.7-14.9)
== END 2019-04-23 09:00 | disposition home or self-care (01) ==
LOC: MTLAB 08:34
PROVIDERS: Physician Assistant Medical; Family Provider Family Medicine; PCP Family Medicine; Referring Provider Internal Medicine Cardiovascular Disease; Visit Provider Internal Medicine Cardiovascular Disease
DX: I48.0 Paroxysmal atrial fibrillation (principal); Z79.01 Long term (current) use of anticoagulants; E78.00 Pure hypercholesterolemia, unspecified; R53.83 Other fatigue
CPT/HCPCS: 36415; 80048; 84443; 85610

== ENCOUNTER 2019-05-08 08:36 | Outpatient (RCR) | payer MEDICARE, OTHER, SELFPAY ==
[2019-03-17 13:23] VITALS: BMI 30.4
[2019-05-08 10:20] LABS: International Normalized Ratio 2.4; Prothrombin Time (Protime)PT. 25.9 SECONDS (11.7-14.9)
== END 2019-05-28 06:59 | disposition home or self-care (01) ==
LOC: MTLAB 08:36
PROVIDERS: Family Provider Family Medicine; PCP Family Medicine; Referring Provider Internal Medicine Cardiovascular Disease; Visit Provider Internal Medicine Cardiovascular Disease
DX: I48.0 Paroxysmal atrial fibrillation (principal); Z79.01 Long term (current) use of anticoagulants
CPT/HCPCS: 36415; 85610

== ENCOUNTER 2019-06-20 08:43 | Day surgery (SDC) | payer MEDICARE, OTHER, SELFPAY ==
[2019-06-17 10:35] VITALS: BMI 30.4
--- NOTE | 2019-06-20 11:25 | CL.D_ITS ---
Patient Name: KIM CAZARES Study Date: 06/20/2019 Performing: Elijah West MD Ht: 68 inches 172.72 cm : 1940 Wt: 199.69 lbs 90.58 kg Age: 79 Gender: female BSA: 2.04 PROCEDURE(S) PERFORMED [id number]/COR/LV CLINICAL PROFILE AND INDICATIONS Indications: Suspected CAD Heart Failure: None Stress/Imaging Date: 08/17/18tress Test with SPECT MPI: Negative CAD Presentations: Other: SOB CONCLUSIONS At least 50% distal left main coronary artery stenosis, mild left anterior descending artery stenosis , mild circumflex artery stenosis, ostial 40% right coronary artery and preserved left ventricular ej ection fraction. RECOMMENDATIONS Surgery consult for coronary revascularization DESCRIPTION OF PROCEDURE The patient arrived to the procedure lab. The risks and benefits of the procedure as well as a full d escription of our services here and current unavailability of surgical backup were fully explained to the patient and/or their significant other prior to the catheterization. The Timeout was completed, verifying the correct patient and procedure. The patient's procedural site was prepped and draped in the usual fashion. Local anesthetic was given subcutaneously to right radial region with Lidocaine 2% . Using a modified Seldinger technique, arterial access was obtained via the right radial artery, a 6 Fr sheath was inserted. Left Coronary Artery selective angiography was performed in multiple views u sing a 5 Fr. 4.0 Vermillion catheter. Right Coronary Artery selective angiography was then performed in mu ltiple views using a 5 Fr. 4.0 Vermillion catheter. Left Ventriculography was performed in MARTINEZ projection using a 5 Fr. Pigtail catheter. LV to AO pullback pressures were then recorded.The arterial sheath was pulled and a TR Band was applied for hemostasis w/ 14ml air CORONARY ANGIOGRAPHY DOMINANCE: Left Dominant LEFT HEART ASSESSMENT Left Ventricular Ejection Fraction: by LV Gram 60 % Normal Left Ventricular systolic function LEFT MAIN: Mild calcification, 50 % distal % Stenosis LEFT ANTERIOR DESCENDING ARTERY: Mild luminal irregularities CIRCUMFLEX ARTERY: PROX CIRC: Mild luminal irregularities less than 30% RIGHT CORONARY ARTERY: Mild luminal irregularities less than 30% OSTIAL RCA: 40 % Stenosis COMPLICATIONS No Complications PROCEDURE MEDICATIONS Versed 1 mg IV Fentanyl 50 mcg IV Oxygen: 2 L/min via nasal cannula Heparin diluted in 23cc Heparinized saline. Patient given 1/2 IA of this solution. 06/20/2019 10:50:0 2 Verapamil 2.5mg, Ntg 100mcgs, 2000 units of Heparin diluted in 23cc Heparinized saline. Patient give n 1/2 IA of this solution. 06/20/2019 10:50:02 SUMMARY OF HEMODYNAMIC DATA Time AIR REST ECG 09:14:52 AO 101/58 (75) SA 10:51:31 LV 113/5, 10 10:59:32 LV 106/6, 11 10:59:39 LV 110/4, 10 11:00:24 LVp 107/3, 13 11:00:29 AOp 114/55 (78) 11:00:34 Signed By Elijah West MD On 06/20/2019 11:24:13 Elijah West MD
--- NOTE | 2019-06-20 11:26 | PCM.HP.BLA ---
History and Physical Details: KIM CAZARES, is a 78 F who presents to the office today for a cardiovascular follow-up. She was in our office a few weeks ago for concerns over lightheadedness and fatigue. We did decrease her medications. She has a history of coronary artery disease with angioplasty and stenting to her proximal and ostial RCA in June 2009, cardiomyopathy, pulmonary vein isolation which was complicated by perforation that required open heart repair, AV junctional ablation with pacemaker placement, and pulmonary embolus. Patient still complains of generalized fatigue, she does complain of shortness of breath. She states that she just does not feel right. Blood pressures have been controlled at home. She does not have any chest pain. She does have shortness of breath with exertion. She has not had any syncopal events. She does not have any lower extremity edema. She is recovering from a fall in which she was hospitalized in rehab. 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 [Ecotrin] 81 mg PO QHS 09/08/14 [History Confirmed 03/17/19] ipratropium bromide 42 mcg (0.06 %) nasal spray See Protocol INTRANASAL DAILY 20 Days #15 10/31/17 [History Confirmed 03/17/19] levothyroxine 100 mcg tablet 100 mcg PO QDAY 04/19/18 [History Confirmed 03/17/19] Atorvastatin Calcium [Lipitor] 40 mg PO QHS 08/20/18 [History Confirmed 03/17/19] spironolactone 25 mg tablet 25 mg PO DAILY #90 tab 10/03/18 [Rx Confirmed 03/17/19] torsemide 10 mg tablet 10 mg PO BID #180 tab 10/03/18 [Rx Confirmed 03/17/19] warfarin 4 mg tablet 8 mg PO .COMPLEX #1 tab 01/20/19 [Rx Confirmed 03/17/19] warfarin 6 mg tablet 6 mg PO .COMPLEX 01/20/19 [History Confirmed 03/17/19] lisinopril 2.5 mg tablet 2.5 mg PO DAILY #90 tab 02/18/19 [Rx Confirmed 03/17/19] metoprolol tartrate 25 mg tablet 12.5 mg PO BID #90 tab 02/18/19 [Rx Confirmed 03/17/19] sertraline 50 mg tablet 50 mg PO DAILY 02/18/19 [History Confirmed 03/17/19] [facility] Medical History Chronic atrial fibrillation (Chronic) Essential (primary) hypertension (Chronic) Atherosclerosis of coronary artery of jamul heart without angina pectoris (Chronic) Cardiomyopathy in diseases classified elsewhere (Chronic) Complete heart block (Chronic) 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) HLD (hyperlipidemia) (Chronic) Bilateral renal artery stenosis (Chronic) COPD (chronic obstructive pulmonary disease) (Chronic) Osteoarthritis (Chronic) Surgical History Hx of atrioventricular node ablation (Resolved 08/02/12) History of radiofrequency ablation procedure for cardiac arrhythmia (Resolved 10/15/09) History of open heart surgery (Resolved 10/15/09) Presence of cardiac pacemaker (Chronic 04/29/18) History of coronary artery stent placement (Chronic 07/23/09) History of appendectomy (Resolved) History of arthroscopic knee surgery (Resolved) History of carpal tunnel release of both wrists (Resolved) History of stent insertion of renal artery (Resolved 03/22/11) Family History Father Myocardial infarction Mother Cancer breast Sister Dementia Sister Colon cancer Social History Smoking Status: Former smoker how long ago did patient quit smokin alcohol intake: current alcohol intake frequency: holidays/special occasions only substance use type: does not use caffeine: Yes (occasional) Type: carbonated beverages, coffee ROS Const Const: Positive for fatigue and weakness; negative for fever(s) or headache(s) Eyes Eyes: Negative for blind spots, loss of peripheral vision or transient loss of vision ENT ENT: Negative for headache(s) Cardio Chest Pain: No Palpitations: No Edema: None Muscle aches with walking: None Resp Respiratory: Positive for SOB with activity; negative for SOB at rest, SOB orthopnea\SOB lying down or Cough GI GI: Negative nausea, vomiting, heartburn or vomiting blood/hematemesis : Negative for hematuria Musc Musc: Negative for muscle aches/ myalgia Neuro Neuro: Positive for weakness; negative for headache(s) Jeremiah Hematologic/Lymphatic: Negative for easy bleeding Endo Endo: Positive for fatigue Assessment & Plan 1. Chronic atrial fibrillation I48.2 Plan Patient's heart rate is controlled. She will continue with her Coumadin with a therapeutic INR goal of 2-3 2. Atherosclerosis of jamul coronary artery of jamul heart without angina pectoris I25.10 PCI-CEM- proximal and ostial RCA 07/23/2009 Plan Stable, from a cardiac standpoint patient does not have any symptoms of angina. We recommend that they continue with current aggressive medical management and risk factor modification. 3. Essential hypertension I10 Plan Blood pressure is on the low side of normal limits. Will not make any adjustments. 4. Cardiomyopathy in diseases classified elsewhere I43 Plan We are obtaining an echocardiogram to further evaluate for shortness of breath. She will continue with current aggressive medical management. 5. Pure hypercholesterolemia E78.00 Plan Recent lipid profile demonstrates total cholesterol 162, HDL 38, LDL 80. Patient will continue with current medical management Orders Orders: Thyroid Stim Hormone (TSH) Today 6. Presence of cardiac pacemaker Z95.0 2011, gen change 2017 Plan Pacemaker is functioning appropriately. We will continue to monitor at routine scheduled pacemaker interrogations. 7. Fatigue, unspecified type R53.83 Plan As mentioned above will await test from echocardiogram. If these are unchanged recommend that she follow-up with her primary care physician for this. We will also check a BMP and TSH per Orders Orders: Basic Metabolic Profile (BMP) Today Thyroid Stim Hormone (TSH) Today 8. Dyspnea on exertion R06.09 Plan With patient's continued shortness of breath and fatigue she does have an echocardiogram scheduled. Hesitant to increase her diuretics as her blood pressure is on the low side. Her BNP is elevated but it is at the lower limits of where it has been in the past. Do not feel that this is contributing to this. Her chest x-ray was normal. If echocardiogram is unchanged from previous recommend that she follow-up with her primary care doctor. Patient may benefit from a referral to pulmonary. We will also obtain a TSH and BMP. Plan Detail Other Orders
[2019-06-20 15:32] LABS: Prothrombin Time Fingerstick 15.3 SEC (11.9-14.4)
== END 2019-06-20 13:30 | disposition home or self-care (01) ==
PROVIDERS: Family Provider Family Medicine; PCP Family Medicine; Referring Provider Internal Medicine Cardiovascular Disease; Visit Provider Internal Medicine Cardiovascular Disease
DX: I25.10 Atherosclerotic heart disease of native coronary artery without angina pectoris (principal); I70.1 Atherosclerosis of renal artery; I48.2 Chronic atrial fibrillation; I10 Essential (primary) hypertension; I43 Cardiomyopathy in diseases classified elsewhere; E78.00 Pure hypercholesterolemia, unspecified; R53.83 Other fatigue; R06.09 Other forms of dyspnea; J44.9 Chronic obstructive pulmonary disease, unspecified; M19.90 Unspecified osteoarthritis, unspecified site; Z95.0 Presence of cardiac pacemaker; Z95.5 Presence of coronary angioplasty implant and graft; Z79.01 Long term (current) use of anticoagulants; Z79.82 Long term (current) use of aspirin; Z79.899 Other long term (current) drug therapy; Z87.891 Personal history of nicotine dependence
CPT/HCPCS: 36416; 85610; 93458; 99152; 99153; J7040; Q9967; C1769; C1894

== ENCOUNTER 2019-06-26 08:47 | Outpatient (RCR) | payer MEDICARE, OTHER, SELFPAY ==
[2019-03-17 13:23] VITALS: BMI 30.4
[2019-05-29 10:20] LABS: International Normalized Ratio 2.3; Prothrombin Time (Protime)PT. 25.2 SECONDS (11.7-14.9)
[2019-06-17 12:09] LABS: International Normalized Ratio 2.1; Prothrombin Time (Protime)PT. 23.3 SECONDS (11.7-14.9)
[2019-06-17 12:11] LABS: Absolute Lymphocyte Count 1.23 X10^3/uL (0.83-4.51); Absolute Neutrophil Count 2.9 X10^3/uL (2.0-7.7); Basophil# 0.03 X10^3/uL; Basophil% 0.6 % (0-1); Eosinophil# 0.18 X10^3/uL; Eosinophils% 3.6 % (0-5); Hematocrit 40.2 % (37-47); Hemoglobin 13.6 g/dL (12.0-15.0); Lymphocyte # 1.23 X10^3/ul (4.0); Lymphocyte % 24.5 % (19-41); Mean Corp Hgb Conc 33.8 g/dL (32-36); Mean Corpuscular Hgb 32.2 pg (27.0-32.0); Mean Corpuscular Volume 95.3 fL (81-99); Mean Platelet Vol. 10.7 fl (6.2-12.0); Monocyte# 0.66 X10^3/uL; Monocyte% 13.1 % (0-10); NRBC Flagged by Analyzer 0 % (0-5); Neutrophil % 57.8 % (47-70); Platelet Count 176 K/mm3 (150-450); RBC Distribution Width SD 45.4 fl (35.1-43.9); Red Blood Count 4.22 M/mm3 (4.2-5.4)
[2019-06-17 12:33] LABS: Anion Gap 5 (5-15); BUN 25 mg/dL (7-18); BUN/Creat Ratio 22.1 RATIO (10-20); Calcium,Total 9.1 mg/dL (8.5-10.1); Chloride 107 mmol/L (98-107); Creatinine, Serum 1.13 mg/dL (0.55-1.02); EST Glomerular Filtration Rate 50 mL/min (>60); Est Glom Filt Rate - Afr Amer 60 mL/min (>60); Glucose 102 mg/dL (74-106); Potassium 4.5 mmol/L (3.5-5.1); Sodium Level 138 mmol/L (136-145)
[2019-06-26 10:14] LABS: International Normalized Ratio 1.3; Prothrombin Time (Protime)PT. 16.2 SECONDS (11.7-14.9)
== END 2019-06-26 09:47 | disposition home or self-care (01) ==
LOC: MTLAB 08:47
PROVIDERS: Physician Assistant Medical; Family Provider Family Medicine; PCP Family Medicine; Referring Provider Internal Medicine Cardiovascular Disease; Visit Provider Internal Medicine Cardiovascular Disease
DX: I48.0 Paroxysmal atrial fibrillation (principal); Z79.01 Long term (current) use of anticoagulants
CPT/HCPCS: 36415; 80048; 85025; 85610

== ENCOUNTER → 2019-07-07 08:56 | Outpatient (CLI) | payer MEDICARE, OTHER, SELFPAY ==
[2019-06-17 10:35] VITALS: BMI 30.4
[2019-07-07 09:34] VITALS: PULSE 68; PULSE 70; PULSE 85; PULSE 86; PULSE 88; PULSE 89; PULSE 93; O2SAT 95; O2SAT 96; O2SAT 97; O2SAT 98
--- NOTE | 2019-07-08 08:37 | PCM.PSN.6M ---
PSN 6 Minute Walk Test - 6 Minute Walk Test 6 Minute Walk Test: 6 Minute Walk Test PSN:6-Minute Walk Test Start: 07/07/19 09:34 Freq: Status: Active Protocol: [id number] Document 07/07/19 09:34 DG (Rec: 07/07/19 09:36 DG [id number]) 6 Minute Walk Test Date Performed 07/07/19 Time Performed 09:00 Height 5 ft 8 in Weight: 200 lb Weight in Pounds 200.[address]: Amadou Major Assistive device used: None Pre-test Oxygen Delivery Method Room Air Pulse Ox (%) 97 Pulse Rate (60-100 beats/min) 70 Dyspnea Jaspal Scale (0-10) 0 Exertion Jaspal Scale (6-20) 6 1st minute Oxygen Delivery Method Room Air Pulse Ox (%) 97 Pulse Rate (60-100 beats/min) 85 2nd minute Oxygen Delivery Method Room Air Pulse Ox (%) 95 Pulse Rate (60-100 beats/min) 86 3rd minute Oxygen Delivery Method Room Air Pulse Ox (%) 97 Pulse Rate (60-100 beats/min) 88 4th minute Oxygen Delivery Method Room Air Pulse Ox (%) 96 Pulse Rate (60-100 beats/min) 88 5th minute Oxygen Delivery Method Room Air Pulse Ox (%) 96 Pulse Rate (60-100 beats/min) 89 6th minute Oxygen Delivery Method Room Air Pulse Ox (%) 97 Pulse Rate (60-100 beats/min) 93 Dyspnea Jaspal Scale (0-10) 3 Exertion Jaspal Scale (6-20) 13 Post-test Oxygen Delivery Method Room Air Pulse Ox (%) 98 Pulse Rate (60-100 beats/min) 68 Full Laps Walked 18 Partial Lap, Number of Tiles Walked 15 Total Distance Walked (ft) 1077 - Interpretation Interpretation: The patient ambulated 1077 feet over the course of 6 minutes beginning on room air without assistive devices or breaks. Pretesting oxygen saturation was noted to be 97% on room air. With ambulation, the rose oxygen saturation was 95%. There was no significant exertional oxygen desaturation. - Recommendations Recommendations: There is no indication for the use of supplemental oxygen at this time.
== END ==
PROVIDERS: Family Provider Family Medicine; PCP Family Medicine; Referring Provider Internal Medicine Critical Care Medicine; Visit Provider Internal Medicine Critical Care Medicine
DX: R06.02 Shortness of breath (principal)
CPT/HCPCS: 94618

== ENCOUNTER → 2019-07-08 07:31 | Outpatient (CLI) | payer MEDICARE, OTHER, SELFPAY ==
[2019-06-17 10:35] VITALS: BMI 30.4
--- NOTE | 2019-07-08 08:51 | PFT ---
INTRODUCTION: The patient is a 79-year-old female that presents for pulmonary function studies secondary to a diagnosis of shortness of breath. Respiratory therapy reports good patient effort. Bronchodilators were used during testing. INTERPRETATION: Forced expiration spirometry demonstrates the presence of a mild large airways obstructive ventilatory defect. There was a partial, albeit technically nonsignificant, response to aerosolized bronchodilators, based upon change noted in FEV1. Spirograms are of fair quality and plateau gradually indicating slow emptying of the lungs. Body plethysmography was performed and reveals an elevated RV to 154% of predicted, indicative of underlying air trapping. Diffusing capacity by single breath CO is at the lower limits of normal. When compared to previous pulmonary function studies from July 2018, there has been a 15% reduction in DLCO. IMPRESSION: Irreversible mild large airways obstructive ventilatory defect with associated air trapping. Diffusing capacity is at the lower limits of normal. There has been a decrease in the patient's DLCO when compared to previous pulmonary function studies from July 2018, as noted above.
== END ==
PROVIDERS: Family Provider Family Medicine; PCP Family Medicine; Referring Provider Internal Medicine Critical Care Medicine; Visit Provider Internal Medicine Critical Care Medicine
DX: R06.02 Shortness of breath (principal)
CPT/HCPCS: 94060; 94726; 94729

== ENCOUNTER → 2019-07-17 08:48 | Outpatient (CLI) | payer MEDICARE, OTHER, SELFPAY ==
[2019-06-17 10:35] VITALS: BMI 30.4
[2019-07-11 11:09] VITALS: BMI 30.6
--- NOTE | 2019-07-17 08:49 | CDU_ITS ---
Reason For Study: Caarotid Bruit Rt. Velocities/BP Lt. Velocities/BP Prox CCA 51.9/12.6 cm/sec. Prox CCA 68.6/8.1 cm/sec. Mid CCA 67.9/12.6 cm/sec. Mid CCA 78.3/20.1 cm/sec. Dist CCA 216.9/63.9 cm/sec. Dist CCA 70.6/19 cm/sec. Bulb 326.7/63.9 cm/sec. Prox ICA 169/33.3 cm/sec. Prox ICA 79.1/22.5 cm/sec. Mid ICA 185.2/30.1 cm/sec. Mid ICA 64.4/18.9 cm/sec. Dist ICA 106.6/25 cm/sec. Dist ICA 53.4/17.7 cm/sec. Lt. ICA/CCA = 2.62. Rt. ICA/CCA = 1.16. Prox ECA 60.8/6.9 cm/sec. Prox ECA 214.3/36.5 cm/sec. Lt. Vert. 58.1/17.6 cm/sec. Right Extracranial There is heterogeneous, irregular atherosclerotic plaque noted in the right common carotid artery. There is heterogeneous, irregular atherosclerotic plaque noted in the right internal carotid artery. There is heterogeneous, irregular atherosclerotic plaque noted in the right external carotid artery. Retrograde flow is noted in the right vertebral artery. Left Extracranial There is heterogeneous, irregular atherosclerotic plaque noted in the left common carotid artery. There is heterogeneous, irregular atherosclerotic plaque noted in the left internal carotid artery. There is heterogeneous, irregular atherosclerotic plaque noted in the left external carotid artery. Antegrade flow is noted in the left vertebral artery. Procedure Carotid Duplex [id number]. Exam performed in department. Interpretation Summary Significant irregular plague right distal common carotid Extensive calcific irregular plague at the proximal right internal carotid 50-69% stenosis right proximal internal carotid Increased velocity right carotid bulb suspicious for clinically significant disease >50% stenosis right external carotid Irregular calcific plague at the proximal left internal carotid Irregular plague at the proximal left external carotid 50-69% stenosis left internal carotid <50% stenosis left external carotid >50% stenosis right vertebral <50% stenosis left vertebral Ordering Physician: Elijah West Referring Physician: Davis Lopez Performed By: Sydni Carson RVT
== END ==
PROVIDERS: Family Provider Family Medicine; PCP Family Medicine; Referring Provider Internal Medicine Cardiovascular Disease; Visit Provider Internal Medicine Cardiovascular Disease
DX: R09.89 Other specified symptoms and signs involving the circulatory and respiratory systems (principal); I25.10 Atherosclerotic heart disease of native coronary artery without angina pectoris; Z95.5 Presence of coronary angioplasty implant and graft
CPT/HCPCS: 93880

== ENCOUNTER 2019-07-18 08:44 | Outpatient (RCR) | payer MEDICARE, OTHER, SELFPAY ==
[2019-06-17 10:35] VITALS: BMI 30.4
[2019-07-04 11:29] LABS: International Normalized Ratio 1.8; Prothrombin Time (Protime)PT. 20.3 SECONDS (11.7-14.9)
[2019-07-11 10:27] LABS: Absolute Neutrophil Count 2.5 X10^3/uL (2.0-7.7); Basophil# 0.02 X10^3/uL; Basophil% 0.5 % (0-1); Eosinophil# 0.16 X10^3/uL; Eosinophils% 3.8 % (0-5); Hematocrit 40.9 % (37-47); Mean Corp Hgb Conc 31.8 g/dL (32-36); Mean Corpuscular Hgb 30.8 pg (27.0-32.0); Mean Corpuscular Volume 96.9 fL (81-99); Mean Platelet Vol. 10.7 fl (6.2-12.0); Monocyte# 0.49 X10^3/uL; Monocyte% 11.8 % (0-10); NRBC Flagged by Analyzer 0 % (0-5); Neutrophil # 2.47 X10^3/uL (2.7-7.7); Neutrophil % 59.4 % (47-70); Platelet Count 158 K/mm3 (150-450); RBC Distribution Width SD 46.1 fl (35.1-43.9); Red Blood Count 4.22 M/mm3 (4.2-5.4); White Blood Count 4.2 K/mm3 (4.4-11.0)
[2019-07-11 10:36] LABS: International Normalized Ratio 1.9; Prothrombin Time (Protime)PT. 21.4 SECONDS (11.7-14.9)
[2019-07-18 10:31] LABS: Prothrombin Time (Protime)PT. 22.2 SECONDS (11.7-14.9)
== END 2019-07-18 18:00 | disposition home or self-care (01) ==
LOC: MTLAB 08:44
PROVIDERS: Physician Assistant Medical; Family Provider Family Medicine; PCP Family Medicine; Referring Provider Internal Medicine Cardiovascular Disease; Visit Provider Internal Medicine Cardiovascular Disease
DX: I48.0 Paroxysmal atrial fibrillation (principal); Z79.01 Long term (current) use of anticoagulants
CPT/HCPCS: 36415; 85025; 85610

== ENCOUNTER 2019-08-15 09:37 | Outpatient (RCR) | payer MEDICARE, OTHER, SELFPAY ==
[2019-07-11 11:09] VITALS: BMI 30.6
[2019-07-31 10:25] LABS: International Normalized Ratio 2.5
[2019-08-15 12:53] LABS: International Normalized Ratio 2.4; Prothrombin Time (Protime)PT. 26.5 SECONDS (11.7-14.9)
== END 2019-08-15 18:00 | disposition home or self-care (01) ==
LOC: MTLAB 09:37
PROVIDERS: Family Provider Family Medicine; PCP Family Medicine; Referring Provider Internal Medicine Cardiovascular Disease; Visit Provider Internal Medicine Cardiovascular Disease
DX: I48.0 Paroxysmal atrial fibrillation (principal); Z79.01 Long term (current) use of anticoagulants
CPT/HCPCS: 36415; 85610

== ENCOUNTER 2019-09-24 10:30 | Outpatient (RCR) | payer MEDICARE, OTHER, SELFPAY ==
[2019-07-11 11:09] VITALS: BMI 30.6
--- NOTE | 2019-09-24 10:33 | RAD_ITS ---
STUDY: X-RAY CHEST REASON FOR EXAM: Female, 79 years old. TECHNIQUE: 3 views COMPARISON: March 04, 2019. FINDINGS: The lungs are clear and expanded. There is no demonstrated pleural abnormality. Normal size heart. Normal mediastinum and linda. Normal visualized pulmonary arteries. Normal visualized aortic arch and descending thoracic aorta except for mild tortuosity and calcification A permanent pacemaker is noted with [address] Normal visualized thoracic spine except for mild osteoporosis. Normal visualized ribs, clavicles, and shoulders. There is no demonstrated abnormality of the visualized soft tissue structures of the upper abdomen. RAD/Chest PA and Lateral IMPRESSION: Normal x-ray examination of the chest unchanged since March 04, 2019. Electronically Signed: Brett Jarquin, at 11:27 EST Tel , Service support ,
[2019-09-24 12:32] LABS: International Normalized Ratio 2.6; Prothrombin Time (Protime)PT. 27.7 SECONDS (11.7-14.9)
== END 2019-09-24 18:00 | disposition home or self-care (01) ==
LOC: MTLAB 10:30
PROVIDERS: Family Provider Family Medicine; PCP Family Medicine; Referring Provider Internal Medicine Cardiovascular Disease; Visit Provider Internal Medicine Cardiovascular Disease
DX: I48.20 Chronic atrial fibrillation, unspecified (principal); Z79.01 Long term (current) use of anticoagulants; R05 Cough
CPT/HCPCS: 36415; 71046; 85610

== ENCOUNTER → 2019-09-30 14:13 | Outpatient (CLI) | payer MEDICARE, OTHER, SELFPAY ==
[2019-09-30 13:23] VITALS: BMI 29.2
--- NOTE | 2019-09-30 14:20 | RAD_ITS ---
STUDY: X-RAY CHEST REASON FOR EXAM: Female, 79 years old. Recent open heart surgery. Short of breath. TECHNIQUE: Frontal and lateral views of the chest. COMPARISON: 09/24/2019. FINDINGS: The lungs are hyperexpanded. There are coarsened interstitial markings suggestive of mild chronic fibrosis. No gross focal infiltrates. No gross effusions. Normal size heart. Previous CABG. Pacemaker is seen with leads terminating in the right atrium and right ventricle. Normal mediastinum and linda. Normal visualized pulmonary arteries. Normal visualized aortic arch and descending thoracic aorta. There are diffuse degenerative changes of the visualized thoracic spine. Normal visualized ribs, clavicles, and shoulders. There is no demonstrated abnormality of the visualized soft tissue structures of the upper abdomen. RAD/Chest PA and Lateral IMPRESSION: There are findings consistent with COPD. There is no evidence of acute chest disease. Electronically Signed: Tito Lujan MD at 23:55 EST , Service support ,
== END ==
PROVIDERS: Family Provider Family Medicine; PCP Family Medicine; Referring Provider Internal Medicine Cardiovascular Disease; Visit Provider Internal Medicine Cardiovascular Disease
DX: Z95.1 Presence of aortocoronary bypass graft (principal)
CPT/HCPCS: 71046

== ENCOUNTER → 2019-10-14 10:15 | Outpatient (CLI) | payer MEDICARE, OTHER, SELFPAY ==
[2019-07-11 11:09] VITALS: BMI 30.6
[2019-09-30 13:23] VITALS: BMI 29.2
--- NOTE | 2019-10-14 10:49 | CR.HP_ITS ---
CR - History & Physical - General Arrival date:: 10/14/19 Arrival time:: 10:25 Date of Referral:: 08/28/19 Date of CR Evaluation:: 10/14/19 Referring Physician: DR. ARREOLA Primary Diagnosis: CABG X2 - History of Present Cardiac Event Onset Date: Enter Onset Date of cardiac illnesses in Comment field below Current stable Angina Pectoris:: No Acute Myocardial Infarction within 12 months:: No Coronary Artery Bypass Graft:: Yes - X2 (08/28/2019 Heart valve replacement or repair:: No PTCA or coronary stenting:: No Heart Failure EF <35%:: No Type of Symptoms:: SEVERE SOB Interventions with present event:: CABG X2 Were there any complications?: NONE - Medications Home Medications: Ambulatory Orders Medication Instructions Recorded Aspirin E.C. [Ecotrin] 81 mg PO QHS 09/08/14 levothyroxine 100 mcg tablet 100 mcg PO QDAY 04/19/18 sertraline 50 mg tablet 50 mg PO DAILY 02/18/19 atorvastatin 40 mg tablet 40 mg PO QHS #90 tab 04/11/19 metoprolol tartrate 25 mg tablet 12.5 mg PO BID #90 tab 04/21/19 Warfarin Sodium 8 mg PO MARTINES 06/19/19 warfarin 6 mg tablet 6 mg PO DAILY #90 tab 06/23/19 torsemide 20 mg tablet 20 mg PO BID #30 tab 07/31/19 ipratropium-albuterol 0.5 mg-3 3 ml INHALATION Q8H 09/28/19 mg(2.5 mg base)/3 mL nebulization soln magnesium 250 mg tablet 250 mg PO DAILY 09/28/19 potassium chloride 20 mEq 20 meq PO DAILY #30 tab 10/13/19 tablet,extended release - Allergies Allergies/Adverse Reactions: Allergies No Known Allergies Allergy (Verified 09/30/19 10:44) - Sleep Disorder Evaluation Hx of Sleep Apnea: No Do you snore loudly (louder than talking or can be heard through closed doors)?: Yes Do you often feel tired/ fatigued/ sleepy during daytime?: No Has anyone observed you stop breathing during sleep?: No History of Hypertension (for STOP score): Yes - PT STATES SHE IS INTETRESTED IN A SLEEP STUDY TEST STOP Results: Positive Advanced Directives - Advanced Directives Power of Firefighter: Yes - ENCOURAGED TO BRING COPIES FOR FILE HERE AT [facility] Living Will: Yes Advance Directives Information Provided: Yes DNR Order?:: No Past Medical History - Past Medical Illness Medical History: Past Medical History (Last Reviewed 09/30/19 @ 13:47 by Elijah Arreola MD) 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9 Carotid bruit R09.89 Hypothyroidism E03.9 Osteoarthritis M19.90 History of pulmonary embolism Z86.711 Non-ischemic cardiomyopathy I42.8 - Past Surgical History Surgical History: Past Surgical History (Last Reviewed 09/30/19 @ 13:47 by Elijah Arreola MD) H/O coronary artery bypass surgery (Resolved) Onset Date: 08/28/19 Z95.1 Redo sternotomy-CABG X 2: PHILLIPS to LAD, radial T graft off the LIAM to the principal obtuse marginal and ligation of left atrial appendage 08/28/19 History of coronary artery stent placement (Chronic) Onset Date: 07/23/09 Z95.5 [id number] and Prox RCA w/ 3.0 x 23 mm and 3.0 x 18 mm Promus Rx Stent June 2009; History of open heart surgery (Resolved) Onset Date: 10/15/09 Z98.890 Sternotomy for repair of left atrial laceration. Right-sided pulmonary vein isolation. Ligation of left atrial Appendage. 10/15/2009 Presence of cardiac pacemaker (Chronic) Onset Date: 04/29/18 Z95.0 2011, gen change 2018 History of appendectomy Z90.49 History of arthroscopic knee surgery Z98.890 right History of carpal tunnel release of both wrists Z98.890 History of left heart catheterization Onset Date: 06/20/19 Z98.890 History of radiofrequency ablation procedure for cardiac arrhythmia Onset Date: 10/15/09 Z98.890 History of stent insertion of renal artery Onset Date: 03/22/11 Z98.890 Right Renal Artery 6 x 12 mm formula stent , Left Renal Artery 6 x 16 mm formula stent 03/22/2011 Hx of atrioventricular node ablation Onset Date: 08/02/12 Z98.890 Surgical History: appendectomy, coronary bypass surgery, , stents - Family History Summary Family History: Family History (Last Reviewed 09/30/19 @ 13:47 by Elijah Arreola MD) Father Myocardial infarction Mother Cancer breast Sister Dementia Sister Colon cancer Social History - Smoking History Smoking Status: Former smoker Years Smokin Hx Tobacco Use: Yes - Alcohol Use Alcohol Usage: Yes - OCCASIONAL USE - Substance Abuse Hx Substance Use: No - Occupation Occupation (List type of work in comments):: Retired - Hobbies, Recreation, Social Activities Hobbies: Other - VOLUNTEER A LOT, PEOPLE TO PEOPLE, ETC. 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 Left click = Reports ([place]) Review of Present Symptoms: Reports: Shortness of Breath with Exertion, Wound Healing - INCISION(S) EDGES WELL APPROXIMATED, WITHOUT REDNESS OR DRAINAGE, Fatigue, Heart Arrhythmia/Irregularities - HISTORY OF A FIB, Appetite - Normal, Sleep - Normal. Denies: Shortness of Breath at Rest, PVD, Operative Discomfort, Angina, Dizziness/Lightheadedness - Pain Is Patient Pain Free?: Yes Risk Factor Assessment - Chief Complaint Chief Complaint: CURRENT CABG X2 PT WHO PRESENTS TODAY FOR INITIAL CR EVALUATION - Vital Signs Temperature: 98.6 F Respiratory Rate: 24 Pulse Ox: 98 Blood Pressure: 90/60 Nailbeds:: PINK - Pulse Pulse Rate: 70 Pulse Rhythm: Regular - Hypertension How long have you been treated?: SEVERAL YEARS On medication(s)?: YES Blood Pressure Sitting - Left Arm: 90/60 - Stress Stress: Recent, Long-standing - Blood Cholesterol/Lipids Total Cholesterol (mg/dL) Goal = less than 200 mg/dL: 150 HDL Cholesterol (mg/dL) Goal = less than 40 mg/dL: 38 LDL Cholesterol (mg/dL) Goal = less than 70 mg/dL: 80 Triglycerides (mg/dL) Goal = less than 150 mg/dL: 223 - Obesity Height: 5 ft 6 in Weight:: 201 lb Weight in Pounds: 201.0 lbs Weight Source: Stated by Patient Body Mass Index (BMI): 32.4 Nutritional Referral for Obesity: No - Physical Inactivity Physical Inactivity: None - Risk Stratification Risk Guidelines: Lowest Risk: Risk Factor for Smoking, Risk Factor for Dyslipidemia, Risk Factor for Diabetes, Risk Factor for Hypertension, Moderate Risk: Risk Factor for Obesity, Risk Factor for Sedentary Lifestyle, Risk Factor for Depression - STATES SHE CURRENTLY TAKES MEDICATION FOR DEPRESSION - For Smoking Smoking Risk Guidelines: Smoking Low Risk: None or quit greater than 6 months ago. Smoking Moderate Risk: Smoker or quit 6 months or less ago. Smoking High Risk: Smoker - For Dyslipidemia Dyslipidemia Risk Guidelines: Low Risk: Moderate Risk: High Risk: 15-25% fat 25.1-29% fat >/= 30% fat. <7% sat fat 7-9% sat fat >9% sat fat. <150 mg chol 150-299 mg chol >/= 300 mg chol. LDL <100 LDL 100-129 LDL >/= 130. Chol/HDL ratio <5.0 Chol/HDL ratio 5.0-6.0 Chol/HDL ratio >6.0. Triglycerides <100 Triglycerides 100- 149 Triglycerides >/= 150 - For Diabetes Mellitus Diabetes Risk Guidelines: Diabetes Low Risk: HgA1c <6.5% and/or FBG <120. Diabetes Moderate Risk: HgA1c 6.6-7.9% and/or FBG 120-180. Diabetes High Risk: HgA1c >/= 8% and/or FBG >180 - For Obesity/Overweight Obesity/Overweight Risk Guidelines: Obesity Low Risk: BMI <25.0. Obesity Moderate Risk: BMI 25-29.9. Obesity High Risk: BMI >/= 30.0 - For Hypertension Hypertension Risk Guidelines: Hypertension Low Risk: Systolic <120 and Diastolic <80. Hypertension Moderate Risk: Systolic 120-139 and Diastolic 80-89. Hypertension High Risk: Systolic >/= 140 and Diastolic >/= 90 - For Sedentary Lifestyle Sedentary Lifestyle Risk Guidelines: Sedentary Lifestyle Low Risk: >/= 1,500 kcal/week. Sedentary Lifestyle Moderate Risk: 700-1,499 kcal/week. Sedentary Lifestyle High Risk: < 700 kcal/week - For Depression Depression Risk Guidelines: Depression Low Risk: Not clinically depressed. Depression Moderate Risk: Mildly depressed. Depression High Risk: Clinically depressed - Family History Family History: Family History (Last Reviewed 09/30/19 @ 13:47 by Elijah Arreola MD) Father Myocardial infarction Mother Cancer Sister Dementia Sister Colon cancer Motivation - Motivation to Participate On a scale of 1 to 10, how prepared are you to commit to attending program?: 10 What do you see as barriers to successfully being able to complete the program?: NONE What do you see as the benefits of succesfully completing the program? In other words, what do you hope to get out of participating in the program?: DECREASE SOB Are there issues you are dealing with that will interfere with completing the p rogram?: NONE Do you have a spouse or signficant other, family or friends who will help support you to complete the program?: DAUGHTER
--- NOTE | 2019-10-14 10:51 | PCM.CR.ITP ---
General Information - General Information Admitting Diagnosis: CABG X2 - Education/Goals Barriers to Learning: None Individual Counseling: Initial Assessment: Abnormal Cholesterol Levels, High Blood Pressure, Overweight/Obesity, C. High Triglycerides >150, Hypertension, Sedentary Lifestyle, Stress - POST-OP STRESS, SOB Cardiac Rehabilitation Goals: 1. Maintain the individual as the primary focus of care. 2. To improve the patient's quality of life. 3. Identification of cardiac risk factors and provide cardiac risk factor management. 4. Enhance the psychosocial status of the patient. 5. Reconditioning enough to allow the patient to resume customary activities. 6. Control symptoms of cardiac disease Scale for measuring improvement of personal goals: Enter appropriate number in Comments. 2 = Unchanged. 3 = Slightly Better. 4 = Moderate Improvement. 5 = Met my Goal Personal Goals: Initial Assessment: Improve energy level, Get back to work, or to resume activities faster, Improve knowledge of cardiac disease, Improve muscle strength and endurance, Improve diet and eating habits (eat healthier) Exercise - Initial Assessment - Visit Date of Eval: 10/14/19 - Stages of Change Stages of Change:: Action - Physician Prescribed Exercise Modalities: Treadmill, Biodyne, Airdyne, NuStep, SciFit Frequency (days/week): 3x/week for 12 weeks [36 sessions] Intensity: 60-80% age predicted maximum heart rate reserve Target Heart Rate:: 93-121 - Hypertension Do any of the following apply?: Yes, Medication - METOPROLOL Resting Blood Pressure:: 90/60 - Intervention Home Exercise/Activity Goal:: Sitting Time <3 hrs/day - Education Goals:: Warm-up, RPE REID Scale, S/S, Safe Exercise, Self-Monitoring - Exercise Program Goals Exercise Program Goals: Aerobic Activity >30 min, B/P <130/80 Nutrition - Initial Assessment - Program Goals Nutrition Program Goals: LDL <70. Total Cholesterol <200. HDL >45. Triglycerides <150. HgbA1C <7%. BMI <25 - Stages of Change Stages of Change:: Action - Lipids Total Cholesterol (mg/dL) Goal = less than 200 mg/dL: 150 HDL Cholesterol (mg/dL) Goal = less than 45 mg/dL: 38 LDL Cholesterol (mg/dL) Goal = less than 70 mg/dL: 80 Triglycerides (mg/dL) Goal = less than 150 mg/dL: 223 Lipid Medication: ATORVASTATIN - Diabetes Diabetes:: No - Weight Management Height: 5 ft 6 in Weight:: 201 lb - Intervention Referral to dietitian:: No Referral to Diabetic Clinic:: No Will attend diet classes:: Yes - CR CLASSES - Education Gave educational materials for:: Signs & symptoms of hypoglycemia, Signs & symptoms of hyperglycemia, Relate diabetes to coronary artery disease, Healthy eating Tobacco - Initial Assessment - Program Goals Tobacco Program Goals: Complete smoking cessation. Attend education classes. Improve Knowledge Test score - Stage of Change Stages of Change:: Action - Learning Barriers Learning Barriers: Ready to Learn - Family Support Do you have family support?: Yes - DAUGHTER - Tobacco Use Tobacco Use: Non-smoker How long ago did you quit using tobacco products?: Greater than or equal to 6 months ago Years Smokin Do you use smokeless tobacco?: No - Intervention Smoking Cessation Referral:: No Individual Education/Counseling:: No Education Schedule Given:: Yes - CR CLASSES - Education Attended class for:: Treating Heart Disease, How The Heart Works, What it means to have Heart Disease, How Coronary Artery Disease is Diagnosed, Heart Procedures, What Heart Medications Do, Risk Factors & Modifications, Living an Active Life, Nutrition, Emotions & Heart Disease, Stress Management & Relaxation, Sleep Disorders & Heart Disease - PT INFORMED OF THE ON-LINE EDUCATIONAL MATERIAL ALSO AVAILABLE Psychosocial - Initial Assess - Target Goals Target Goals: Assess presence or absence of depression. Using a valid screening tool, maximizes coping skills. Positive support system - Stages of Change Stages of Change:: Action - Psychosocial Test Tool Used:: HANDS Depression Questionnaire - Intervention PS - Interventions: Yes Attend Stress Management Classes - CR CLASSES, Yes Uses Stress Management Skills - CR CLASSES, No Referral to Mental Health, No Referral to [facility] Case Management, No Referral to Physician - Education Gave educational materials for:: Coping techniques, Signs & symptoms of depression, Stress management, Relaxation techniques - Patient/Program Goal Preventative Medication(s):: Aspirin, KACI inhibitor, Beta mauricio, Statin/lipid - Assistive Devices Assistive Devices:: None Fall Risk Assessed:: No Patient Health Questionnaire Initial Assessment 1. Little interest or pleasure in doing things: Several days 2. Feeling down, depressed, or hopeless: Several days 3. Trouble falling or staying asleep, or sleeping too much: Several days 4. Feeling tired or having little energy: Nearly every day 5. Poor appetite or overeating: Several days 6. Feeling bad about yourself -- or that you are a failure or have let yourself or your family down: Several days 7. Trouble concentrating on things, such as reading the newspaper or watching television: Several days 8. Moving or speaking so slowly that other people could have noticed. Or the opposite - being so fidgety or restless that you have been moving around a lot more than usual: Several days 9. Thoughts that you would be better off , or of hurting yourself in some way: Not at all How difficult have these problems made it for you to do your work, take care of things at home, or get along with other people?: Somewhat difficult Total Score: 10 KAROL-Q SV Test - Statements CAD is a disease of the arteries in the heart: False Examples of risk factors for heart disease: True Angina is chest pain or discomfort: True The benefits of resistance training include: True Eating more meat and dairy products: False Anti-platelet medications such as aspirin are important: True The only effective way to manage stress: False An exercise warm-up slowly increases heart rate: True Prepared, processed foods usually have high sodium: True Depression is common after a heart attack: True The statin medications lower cholesterol: True To control blood pressure, lower the amount of sodium: True If someone gets chest discomfort during walking: False Transfats are partially hydrogenated vegetable oils: True Sleep apnea that is not treated increases the risk: True To control cholesterol, one should become a vegetarian: False Someone knows if he/she is exercising at the right level: I Don't Know Diabetes cannot be prevented with exercise & health eating: True Stress is a large risk for heart attack: True A diet that can help lower blood pressure is rich in: True - Total Score Total Correct Responses: 17 Self-Efficacy Initial Assessment We would like to know how confident you are in doing certain activities. Please select your confidence level for:: Select your confidence level for the following using the scale 1-10 where 1 is not at all confident and 10 is totally confident. Your score is the average of all 6 responses. Fatigue: How confident are you that you can keep the fatigue caused by your disease from interfering with the things you want to do? Select Number: 2 Physical Discomfort or Pain: How confident are you that you can keep the physical discomfort or pain of your disease from interfering with the things you want to do? Select Number: 3 Emotional Distress: How confident are you that you can keep the emotional distress caused by your disease from interfering with the things you want to do? Select Number: 5 Other Symptoms or Health Problems: How confident are you that you can keep other symptoms or health problems from interfering with the things you want to do? Select Number: 5 Different Tasks and Activities: How confident are you that you can do the different tasks and activities needed to manage your health condition so as to reduce your need to see a doctor? Select Number: 5 Medication: How confident are you that you can do things other than just taking medication to reduce how much your illness affects your everyday life? Select Number: 7 Total Score:: 4 Nutrition Survey - Nutrition Survey Instructions Scoring Instructions: Scoring is as follows: Yes = 1 points. No = 0 point. Patient score that is >/=12 is considered to be at potential nutritional risk and could benefit from a referral to a registered dietitian. - Nutrition Survey Initial Have you lost >10 lbs over the past 2 months without trying?: Yes Are you following a special diet at home for diabetes, low fat, or low salt?: No Are you interested in meeting with a dietitian for help understanding your diet?: Yes Do you eat less than 3 meals a day?: Yes Do you eat fatty meats (peterson, sausage, ribs, etc), fried foods, desserts, large amounts of salad dressings, margarine, butter, or cheese most days?: Yes Do you have food allergies? [Enter types in comment field]: No Do you eat in restaurants more than 3 times a week?: No Do you season food with salt, seasoning salt, or garlic salt?: No Do you used canned, boxed, frozen meals, or soups, seasoning packets?: No Total Score:: 4
[2019-10-14 11:40] VITALS: BP 90/60; PULSE 70; RESP 24; TEMP 37; O2SAT 98; BMI 32.4
[2019-10-14 11:44] VITALS: BP 90/60
== END ==
PROVIDERS: Family Provider Family Medicine; PCP Family Medicine; Referring Provider Internal Medicine Cardiovascular Disease; Visit Provider Internal Medicine Cardiovascular Disease
DX: Z95.1 Presence of aortocoronary bypass graft (principal)

== ENCOUNTER → 2019-10-21 10:52 | Outpatient (CLI) | payer MEDICARE, OTHER, SELFPAY ==
[2019-10-14 11:40] VITALS: BMI 32.4
[2019-10-21 11:41] VITALS: PULSE 100; PULSE 71; PULSE 74; PULSE 82; PULSE 84; PULSE 93; PULSE 94; PULSE 96; O2SAT 100; O2SAT 87; O2SAT 91; O2SAT 94; O2SAT 95; O2SAT 96; O2SAT 97; O2SAT 98
--- NOTE | 2019-10-21 11:47 | CPS ---
PATIENT DOES NOT HAVE DME CURRENTLY. TESTING BEGAN ON ROOM AIR WITH SPO2 AT 87% 2 MINUTES IN TO WALK TESTING. PATIENT ALSO C/O INCREASED SOB AT THIS TIME. REST TAKEN AND NC APPLIED AT 2LPM CONTINUOUS FLOW. REMAINDER OF TESTING DONE ON 2LPM, SOB REMAINED BUT RATED LESS SEVERE. DISCUSSED HOME OXYGEN NEED WITH PT EXTENSIVELY. SHE WISHES TO DISCUSS WITH NP. CHAHAL ON SUNDAY AT HER F/U PRIOR TO RECEIVING IT AT HOME. (SHE IS ALSO LEAVING [facility] TODAY FOR HOLIDAY) DR. SHARMA AND RAYO AWARE.
--- NOTE | 2019-10-23 10:04 | WT_ITS ---
PSN 6 Minute Walk Test - 6 Minute Walk Test 6 Minute Walk Test: 6 Minute Walk Test PSN:6-Minute Walk Test Start: 10/21/19 11:41 Freq: Status: Active Protocol: [id number] Document 10/21/19 11:41 [facility] (Rec: 10/21/19 12:02 [facility] [id number]) 6 Minute Walk Test Date Performed 10/21/19 Time Performed 11:00 Height 5 ft 8 in Weight: 191 lb Weight in Pounds 191.[address]: Zeina Chahal Assistive device used: None Pre-test Oxygen Delivery Method Room Air Pulse Ox (%) 100 Pulse Rate (60-100 beats/min) 71 Dyspnea Jaspal Scale (0-10) 1 1st minute Oxygen Delivery Method Room Air Pulse Ox (%) 91 Pulse Rate (60-100 beats/min) 94 Dyspnea Jaspal Scale (0-10) 3 Number of Rests Taken 0 Reported Symptoms Increased Work of Breathing 2nd minute Oxygen Delivery Method Room Air Pulse Ox (%) 87 Pulse Rate (60-100 beats/min) 100 Dyspnea Jaspal Scale (0-10) 4 Number of Rests Taken 1 Reported Symptoms Increased Work of Breathing 3rd minute Oxygen Flow Rate (L/min) (L/min) 2 Oxygen Delivery Method Nasal Cannula Pulse Ox (%) 98 Pulse Rate (60-100 beats/min) 84 Dyspnea Jaspal Scale (0-10) 1 Number of Rests Taken 0 4th minute Oxygen Flow Rate (L/min) (L/min) 2 Oxygen Delivery Method Nasal Cannula Pulse Ox (%) 96 Pulse Rate (60-100 beats/min) 82 Dyspnea Jaspal Scale (0-10) 2 Number of Rests Taken 0 Reported Symptoms Increased Work of Breathing 5th minute Oxygen Flow Rate (L/min) (L/min) 2 Oxygen Delivery Method Nasal Cannula Pulse Ox (%) 94 Pulse Rate (60-100 beats/min) 93 Dyspnea Jaspal Scale (0-10) 3 Number of Rests Taken 0 Reported Symptoms Increased Work of Breathing 6th minute Oxygen Flow Rate (L/min) (L/min) 2 Oxygen Delivery Method Nasal Cannula Pulse Ox (%) 95 Pulse Rate (60-100 beats/min) 96 Dyspnea Jaspal Scale (0-10) 3 Number of Rests Taken 0 Reported Symptoms Increased Work of Breathing Post-test Oxygen Delivery Method Room Air Pulse Ox (%) 97 Pulse Rate (60-100 beats/min) 74 Dyspnea Jaspal Scale (0-10) 1 Full Laps Walked 12 Partial Lap, Number of Tiles Walked 22 Total Distance Walked (ft) 730 10/21/19 11:47 Cardiopulmonary Services by Mame Bautista PATIENT DOES NOT HAVE DME CURRENTLY. TESTING BEGAN ON ROOM AIR WITH SPO2 AT 87% 2 MINUTES IN TO WALK TESTING. PATIENT ALSO C/O INCREASED SOB AT THIS TIME. REST TAKEN AND NC APPLIED AT 2LPM CONTINUOUS FLOW. REMAINDER OF TESTING DONE ON 2LPM, SOB REMAINED BUT RATED LESS SEVERE. DISCUSSED HOME OXYGEN NEED WITH PT EXTENSIVELY. SHE WISHES TO DISCUSS WITH NP. CHAHAL ON SUNDAY AT HER F/U PRIOR TO RECEIVING IT AT HOME. (SHE IS ALSO LEAVING [facility] TODAY FOR HOLIDAY) DR. SHARMA AND RAYO AWARE. Initialized on 10/21/19 11:47 - END OF NOTE - Interpretation Interpretation: The patient ambulated 730 feet over the course of 6 minutes beginning on room air without assistive devices or breaks. Pretesting oxygen saturation was noted to be 100% on room air. With ambulation, the rose oxygen saturation was 87%. 2 L/min of supplemental oxygen was applied and the patient was able to complete the remainder of the test while maintaining appropriate oxygen saturations. - Recommendations Recommendations: 2 L/min of supplemental oxygen should be utilized with exertion.
== END ==
PROVIDERS: Family Provider Family Medicine; PCP Family Medicine; Referring Provider Nurse Practitioner Acute Care; Visit Provider Nurse Practitioner Acute Care
DX: I50.32 Chronic diastolic (congestive) heart failure (principal)
CPT/HCPCS: 94618

== ENCOUNTER 2019-10-27 08:46 | Outpatient (RCR) | payer MEDICARE, OTHER, SELFPAY ==
[2019-07-11 11:09] VITALS: BMI 30.6
[2019-09-30 13:23] VITALS: BMI 29.2
[2019-10-09 17:51] LABS: International Normalized Ratio 3.4; Prothrombin Time (Protime)PT. 34.4 SECONDS (11.7-14.9)
[2019-10-17 15:42] LABS: International Normalized Ratio 3.3; Prothrombin Time (Protime)PT. 33.4 SECONDS (11.7-14.9)
[2019-10-27 10:22] LABS: Prothrombin Time (Protime)PT. 36.7 SECONDS (11.7-14.9)
[2019-10-27 10:23] LABS: International Normalized Ratio 3.7
== END 2019-10-27 18:00 | disposition home or self-care (01) ==
LOC: MTLAB 08:46
PROVIDERS: Family Provider Family Medicine; PCP Family Medicine; Referring Provider Internal Medicine Cardiovascular Disease; Visit Provider Internal Medicine Cardiovascular Disease
DX: I48.0 Paroxysmal atrial fibrillation (principal); Z79.01 Long term (current) use of anticoagulants
CPT/HCPCS: 36415; 85610

== ENCOUNTER 2019-10-27 10:15 | Outpatient (RCR) | payer MEDICARE, OTHER, SELFPAY ==
[2019-10-14 11:40] VITALS: BMI 32.4
[2019-10-24 09:16] VITALS: BMI 29.6
== END 2019-10-28 23:59 ==
LOC: CR 10:15
PROVIDERS: Family Provider Family Medicine; PCP Family Medicine; Referring Provider Internal Medicine Cardiovascular Disease; Visit Provider Internal Medicine Cardiovascular Disease
DX: I25.10 Atherosclerotic heart disease of native coronary artery without angina pectoris (principal); I44.2 Atrioventricular block, complete; I48.20 Chronic atrial fibrillation, unspecified; I36.1 Nonrheumatic tricuspid (valve) insufficiency; I35.0 Nonrheumatic aortic (valve) stenosis; I11.0 Hypertensive heart disease with heart failure; I50.32 Chronic diastolic (congestive) heart failure; E78.5 Hyperlipidemia, unspecified; Z95.1 Presence of aortocoronary bypass graft; Z95.5 Presence of coronary angioplasty implant and graft; Z98.890 Other specified postprocedural states; Z95.0 Presence of cardiac pacemaker
CPT/HCPCS: 93798

== ENCOUNTER 2019-11-28 09:44 | Outpatient (RCR) | payer MEDICARE, OTHER, SELFPAY ==
[2019-10-24 09:16] VITALS: BMI 29.6
[2019-11-03 10:22] LABS: International Normalized Ratio 2.3; Prothrombin Time (Protime)PT. 25.3 SECONDS (11.7-14.9)
[2019-11-14 10:20] LABS: Prothrombin Time (Protime)PT. 22.4 SECONDS (11.7-14.9)
[2019-11-28 12:51] LABS: International Normalized Ratio 1.8; Prothrombin Time (Protime)PT. 20.7 SECONDS (11.7-14.9)
== END 2019-11-28 18:00 | disposition home or self-care (01) ==
LOC: MTLAB 09:44
PROVIDERS: Family Provider Family Medicine; PCP Family Medicine; Referring Provider Internal Medicine Cardiovascular Disease; Visit Provider Internal Medicine Cardiovascular Disease
DX: I48.0 Paroxysmal atrial fibrillation (principal); Z79.01 Long term (current) use of anticoagulants
CPT/HCPCS: 36415; 85610

== ENCOUNTER 2019-11-28 11:30 | Outpatient (RCR) | payer MEDICARE, OTHER, SELFPAY ==
[2019-10-24 09:16] VITALS: BMI 29.6
== END 2019-11-28 23:59 ==
LOC: CR 11:30
PROVIDERS: Family Provider Family Medicine; PCP Family Medicine; Referring Provider Internal Medicine Cardiovascular Disease; Visit Provider Internal Medicine Cardiovascular Disease
DX: I25.10 Atherosclerotic heart disease of native coronary artery without angina pectoris (principal); I44.2 Atrioventricular block, complete; I48.20 Chronic atrial fibrillation, unspecified; I36.1 Nonrheumatic tricuspid (valve) insufficiency; I35.0 Nonrheumatic aortic (valve) stenosis; I11.0 Hypertensive heart disease with heart failure; I50.32 Chronic diastolic (congestive) heart failure; E78.5 Hyperlipidemia, unspecified; Z95.1 Presence of aortocoronary bypass graft; Z95.5 Presence of coronary angioplasty implant and graft; Z98.890 Other specified postprocedural states; Z95.0 Presence of cardiac pacemaker
CPT/HCPCS: 93798

== ENCOUNTER 2019-12-26 09:00 | Outpatient (RCR) | payer MEDICARE, OTHER, SELFPAY ==
[2019-11-06 08:29] VITALS: BMI 29.6
[2019-12-03 10:53] VITALS: BMI 30.9
[2019-12-04 13:53] VITALS: BMI 30.9
[2019-12-12 10:20] LABS: International Normalized Ratio 1.8; Prothrombin Time (Protime)PT. 21.2 SECONDS (11.7-14.9)
[2019-12-26 10:28] LABS: International Normalized Ratio 1.7; Prothrombin Time (Protime)PT. 19.5 SECONDS (11.7-14.9)
== END 2019-12-26 18:00 | disposition home or self-care (01) ==
LOC: MTLAB 09:00
PROVIDERS: Family Provider Family Medicine; PCP Family Medicine; Referring Provider Internal Medicine Cardiovascular Disease; Visit Provider Internal Medicine Cardiovascular Disease
DX: I48.20 Chronic atrial fibrillation, unspecified (principal); Z79.01 Long term (current) use of anticoagulants
CPT/HCPCS: 36415; 85610

== ENCOUNTER 2019-12-26 11:30 | Outpatient (RCR) | payer MEDICARE, OTHER, SELFPAY ==
[2019-11-06 08:29] VITALS: BMI 29.6
--- NOTE | 2019-12-03 10:40 | PCM.CR.ITP ---
Diagnosis - General Information Admitting Diagnosis: CABG Personal Learning Style:: Audio/Visual, Demonstration, Written Barriers to Learning: Vision Impairment Stage of change r/t lifestyle modifications:: Action Gave educational material for:: Treating Heart Disease, Emotions & Heart Disease, Stress Management & Relaxation, Sleep Disorders & Heart Disease, How The Heart Works, What it means to have Heart Disease, How Coronary Artery Disease is Diagnosed, Heart Procedures, What Heart Medications Do, Risk Factors & Modifications, Living an Active Life, Nutrition - Education/Goals Individual Counseling: Initial Assessment: Abnormal Cholesterol Levels, High Blood Pressure, Overweight/Obesity - OVERWEIGHT Cardiac Rehabilitation Goals: 1. Maintain the individual as the primary focus of care. 2. To improve the patient's quality of life. 3. Identification of cardiac risk factors and provide cardiac risk factor management. 4. Enhance the psychosocial status of the patient. 5. Reconditioning enough to allow the patient to resume customary activities. 6. Control symptoms of cardiac disease Scale for measuring improvement of personal goals: Enter appropriate number in Comments. 2 = Unchanged. 3 = Slightly Better. 4 = Moderate Improvement. 5 = Met my Goal - Diagnosis & Disease Process Outcomes/Goals: Pt IDs own risk factors & lifestyle modifications by Session 10, Verbalizes symptoms of angina & response by session 3., Pt independently manages Plan/Interventions: Assist Pt to ID & engage in lifestyle modification to reduce CVD risk, Instruct on individual risk factors, Review symptoms of angina & emergency actions, Review secondary diagnosis & identify educational needs. 30 day Reassessments:: Progressing 30 day Reassessments:: Progressing - Safety Referral to Physical Therapy: No Referral to [facility] Case Management: No Fall Risk Assessed:: Yes Assistive Devices:: None Exercise - 60-day Assessment - Visit Date of Eval: 12/03/19 Session #:: 19 - STARTED CR 10/15/2019 - Physician Prescribed Exercise Modalities: Treadmill, Airdyne, NuStep Frequency: 3x/week for 12 weeks [36 sessions] Intensity: 60-80% of age predicted maximum heart rate reserve - Outcomes & Goals Goals:: Verbalizes understanding of THR, RPE & goal METS by session 6, Documents in home exercise log/reports 30 min aerobic 5 day/wk by DC, Demonstrates accurate pulse taking by DC - Intervention & Plan Exercise Program Goals: Instruct on personal THR & RPE, Instruct on MET level & personal MET goal, Show patient to take own pulse /validate performance until accurate, Instruct on home exercise - 30-day Reassessments 30 day Reassessments:: Progressing - Physical Activity Home Exercise Physical Activity - Home Exercise: Safe Exercise, Warm-up, Self-monitoring, Cool-Down, Home Exercise > 30 min Daily, Sitting Time <3 hours/daily - Outcomes & Goals Outcomes/Goals: Demonstrates correct Warm-up/exercise Cool-Down (S3) if = 2.5 METs, Verbalizes symptoms of exercise intolerance by Session 3 (S3), Demonstrate safe equipment use (S3) & follows exercise prescrition (6) - Intervention & Plan Plan/Intervention: Instruct warm-up & cool-down if exercising at > 2 METs, Instruct on symptoms of exercise intolerance & actions to take, Instruct & monitor on saf, Assess intial functional capacity & safety risk - 30-day Reassessments 30 day Reassessments:: Progressing Nutrition - 60-Day Assessment - Program Goals Nutrition Program Goals: LDL <100 optimal. 100 - 129 Near optimal. 130 - 159 Borderline High. 160 - 189 High. Total Cholesterol <200 desirable. 200 - 239 Borderline High. >/= 240 High. HDL < 40 Low >/=60 High. Triglycerides <150 desirable. <199 optimal. VlDL 5 - 40. HgbA1C <7%. BMI <25 Patient has diagnosis of Hyperlipidemia (ICD E78)?: Yes - Visit Date of Assessment:: 12/03/19 Session #:: 19 - Cholesterol/Lipids Triglycerides (mg/dL): 223 - 03/13/2019 Total Cholesterol (mg/dL): 163 LDL Cholesterol (mg/dL): 80 HDL Cholesterol (mg/dL): 38 Determine presence & major risk factors that modify LDL goal: Hypertension or hypertensive medication, Low HDL cholesterol <40 mg/dL*, Age men > 45 years; women >/= 55 years Outcomes/Goals: Pt IDs own risk factors & lifestyle modifications by Session 10, Verbalizes symptoms of angina & response by session 3., Pt independently manages Intervention/Plan: Advocate for lipid panel cholesterol medication if applicable, Instruct on personal lipid levels & lipid goals/NCEP guidelines, Instruct on cholesterol Referral to dietitian:: No 30-day Reassessments:: Progressing - Diabetes (Other Core Measures) Diabetes Type: Not Applicable - Weight Mgt (Other Care) Not Applicable: Yes Height: 5 ft 6 in Weight:: 191 lb 8 oz BMI: 30.9 Diagnosis Overweight/Obesity BMI> 30% ICD-10 E66: Yes Outcomes/Goals: Pt sets, maintains & shows weight loss goal & trend during rehab Intervention/Plan: Instruct on ideal BMI & set weight loss goal w/patient, Assist pt to ID & incorporate diet changes for weight loss by S9, Refer to Structured Weight Loss program as appropriate, Encourage goal of using 250-300dcal per session for weight loss 30 day Reassessments:: Progressing - Healthy Eating Habits Will attend diet classes:: Yes Outcomes/Goals:: Consume diet rich in vegs,fruits,whole grain/high fiber,fish,lean meat, Limit sat/trans fats,cholesterol & added salts & sugars Intervention/Plan:: Assess current eating habits 30-day Reassessments:: Progressing - Education Gave educational materials for:: Healthy eating Medical- 60-Day Assessment - Visit Date of Eval: 12/03/19 Session #:: 19 - Medication Compliance Preventative Medication(s):: Aspirin, Statin/lipid, Beta mauricio, Warfarin/Coumadin H/O mental health issues: depression, anxiety, or addiction?: No Doesn?t believe in the benefits of treatment?: No Believes medications are unnecessary or harmful?: No Has a concern about medication side effects?: No Expresses concern over the cost of medications?: No Outcomes/Goals: Verbalizes medications,desired effect & common side effects @ DC, Pt self-reports following medication regimen, Keeps card in wallet w/medications listed by DC Interventions/plans: Instruct on medication effects & side effects, Review medication list w/patient every two weeks, Instruct importance of taking meds as ordered & assist problem solving - Tobacco Use Tobacco Use: Non-smoker - Hypertension Hypertension Diagnosis:: Hypertension ICD-10 I10 Resting Blood Pressure:: 110/60 [place] [employer] Hypertension Guidelines: [place] [employer] Hypertension Guidelines. Normal BP Less than 120/80. Elevated BP 120/80. Hypertension Stage 1: BP 130-139/80-89. Hypertesnion Stage 2: BP 140 or higher/90 or higher. Hypertension Crisis: BP higher than 180/120 Peak Exercise Blood Pressure:: 114/60 Outcomes/Goals: Able to verbalize/achieve optimal blood pressure <130/80, Incorporates diet changes & exercise for blood pressure control by DC Interventions/plan: Instruct on optimal blood pressure, hypertension & medications, Instruct on effects of sodium, alcohol, stress, exercise &hypertension 30 day Reassessments:: Progressing - Tobacco Cessation Referral Smoking Cessation Referral:: No Individual Education/Counseling:: No Education Schedule Given:: Yes Psychosocial - 60-Day Assess - VIsit Date of Eval: 12/03/19 Session #:: 19 - Target Goals Target Goals: Assess presence or absence of depression. Using a valid screening tool, maximizes coping skills. Positive support system - Psychosocial Test Tool Used:: [employer] QOL Cardiac, PHQ-9 Questionnaire phq-9 Severity: Severity. 1-4 Minimal Depression. 5-9 Mild Depression. 10-14 Moderate Depression. 15-19 Moderately Sever Depression. 20-27 Severe Depression. Rule: Total Score:: 10 - Referral to Behavioral Health PS - Interventions: Yes Referral to Behavioral Health if PHQ-9 score >9: - PHQ-9 SCORE 10, Yes Attend Stress Management Classes, No Referral to [facility], No Referral to Physician if PHQ-9 if score is 5-9: - Outcomes/Goals: See list Psychosocial Outcomes/Goals:: ID's personal stressors & 2 strategies to manage stress by discharge - Intervention/Plan: See List Interventions/Plan:: Assess stressors,coping strategies & signs of derpression on admission, Instruct/assist pt to develop coping & personal stress Mgt strategies, Instruct patient to recognize signs & symptoms of depression, Instruct patient to recog - 30-day Reassessments: 30 day Reassessments:: Progressing Patient Health Questionnaire 60-Day Re-eval Assessment 1. Little interest or pleasure in doing things: Several days 2. Feeling down, depressed, or hopeless: Several days 3. Trouble falling or staying asleep, or sleeping too much: Several days 4. Feeling tired or having little energy: Nearly every day 5. Poor appetite or overeating: Several days 6. Feeling bad about yourself -- or that you are a failure or have let yourself or your family down: Several days 7. Trouble concentrating on things, such as reading the newspaper or watching television: Several days 8. Moving or speaking so slowly that other people could have noticed. Or the opposite - being so fidgety or restless that you have been moving around a lot more than usual: Several days 9. Thoughts that you would be better off , or of hurting yourself in some way: Not at all Total Score: 10 Self-Efficacy 60-Day Re-eval Assessment We would like to know how confident you are in doing certain activities. Please select your confidence level for:: Select your confidence level for the following using the scale 1-10 where 1 is not at all confident and 10 is totally confident. Your score is the average of all 6 responses. Fatigue: How confident are you that you can keep the fatigue caused by your disease from interfering with the things you want to do? Select Number: 3 Physical Discomfort or Pain: How confident are you that you can keep the physical discomfort or pain of your disease from interfering with the things you want to do? Select Number: 4 Emotional Distress: How confident are you that you can keep the emotional distress caused by your disease from interfering with the things you want to do? Select Number: 6 Other Symptoms or Health Problems: How confident are you that you can keep other symptoms or health problems from interfering with the things you want to do? Select Number: 6 Different Tasks and Activities: How confident are you that you can do the different tasks and activities needed to manage your health condition so as to reduce your need to see a doctor? Select Number: 6 Medication: How confident are you that you can do things other than just taking medication to reduce how much your illness affects your everyday life? Select Number: 8 Total Score:: 5
[2019-12-03 10:53] VITALS: BP 110/60; BP 114/60; BMI 30.9
== END 2019-12-27 23:59 ==
LOC: CR 11:30
PROVIDERS: Family Provider Family Medicine; PCP Family Medicine; Referring Provider Internal Medicine Cardiovascular Disease; Visit Provider Internal Medicine Cardiovascular Disease
DX: I25.10 Atherosclerotic heart disease of native coronary artery without angina pectoris (principal); I44.2 Atrioventricular block, complete; I48.20 Chronic atrial fibrillation, unspecified; I36.1 Nonrheumatic tricuspid (valve) insufficiency; I35.0 Nonrheumatic aortic (valve) stenosis; I11.0 Hypertensive heart disease with heart failure; I50.32 Chronic diastolic (congestive) heart failure; E78.5 Hyperlipidemia, unspecified; Z95.1 Presence of aortocoronary bypass graft; Z95.5 Presence of coronary angioplasty implant and graft; Z98.890 Other specified postprocedural states; Z95.0 Presence of cardiac pacemaker
CPT/HCPCS: 93798

== ENCOUNTER 2020-01-09 11:30 | Outpatient (RCR) | payer MEDICARE, OTHER, SELFPAY ==
[2019-12-03 10:53] VITALS: BMI 30.9
[2019-12-04 13:53] VITALS: BMI 30.9
[2019-12-28 00:44] VITALS: BP 110/60; BP 114/60
--- NOTE | 2019-12-31 08:53 | PCM.CR.ITP ---
Diagnosis - General Information Admitting Diagnosis: S/P CABG Personal Learning Style:: Audio/Visual Barriers to Learning: No Barriers Stage of change r/t lifestyle modifications:: Action Gave educational material for:: Treating Heart Disease, Emotions & Heart Disease, Stress Management & Relaxation, Sleep Disorders & Heart Disease, How The Heart Works, What it means to have Heart Disease, How Coronary Artery Disease is Diagnosed, Heart Procedures, What Heart Medications Do, Risk Factors & Modifications, Living an Active Life, Nutrition - Education/Goals Individual Counseling: Initial Assessment: Abnormal Cholesterol Levels, High Blood Pressure, Overweight/Obesity Cardiac Rehabilitation Goals: 1. Maintain the individual as the primary focus of care. 2. To improve the patient's quality of life. 3. Identification of cardiac risk factors and provide cardiac risk factor management. 4. Enhance the psychosocial status of the patient. 5. Reconditioning enough to allow the patient to resume customary activities. 6. Control symptoms of cardiac disease Personal Goals: Initial Assessment: Improve energy level - 4, Get back to work, or to resume activities faster - 4, Improve knowledge of cardiac disease - 5, Improve muscle strength and endurance - 4, Improve diet and eating habits (eat healthier) - 3, Control risk factors (learn risk factor modification) - 5 Scale for measuring improvement of personal goals: Enter appropriate number in Comments. 2 = Unchanged. 3 = Slightly Better. 4 = Moderate Improvement. 5 = Met my Goal - Diagnosis & Disease Process Outcomes/Goals: Pt IDs own risk factors & lifestyle modifications by Session 10, Verbalizes symptoms of angina & response by session 3., Pt independently manages Plan/Interventions: Assist Pt to ID & engage in lifestyle modification to reduce CVD risk, Instruct on individual risk factors, Review symptoms of angina & emergency actions, Review secondary diagnosis & identify educational needs. 30 day Reassessments:: Progressing 30 day Reassessments:: Progressing 30 day Reassessments:: Progressing 30 day Reassessments:: Met Exercise - 90-day Assessment - Visit Date of Eval: 12/31/19 Session #:: 31 - Physician Prescribed Exercise Modalities: Treadmill, Airdyne, NuStep Frequency: 3x/week for 12 weeks [36 sessions] Intensity: 60-80% of age predicted maximum heart rate reserve Current METSs:: 4.5 UNCHANGED THIS 30-DAY PERIOD Target RPE 12-16:: Current RPE:: 13-14 Maximum Excercise HR:: 98 Resting Blood Pressure: 110/58 Maximum Exercise Blood Pressure: 128/68 EKG Type: Ventricular paced rhythm with PACs and PVCs. Current Physical Activity or Exercising minutes: fully resumed normal daily activity. - Outcomes & Goals Goals:: Verbalizes understanding of THR, RPE & goal METS by session 6, Documents in home exercise log/reports 30 min aerobic 5 day/wk by DC, Demonstrates accurate pulse taking by DC - Intervention & Plan Exercise Program Goals: Instruct on personal THR & RPE, Instruct on MET level & personal MET goal, Show patient to take own pulse /validate performance until accurate, Instruct on home exercise - 30-day Reassessments 30 day Reassessments:: Met - Physical Activity Home Exercise Physical Activity - Home Exercise: Safe Exercise, Warm-up, Self-monitoring, Cool-Down, Home Exercise > 30 min Daily, Sitting Time <3 hours/daily - Outcomes & Goals Outcomes/Goals: Demonstrates correct Warm-up/exercise Cool-Down (S3) if = 2.5 METs, Verbalizes symptoms of exercise intolerance by Session 3 (S3), Demonstrate safe equipment use (S3) & follows exercise prescrition (6) - Intervention & Plan Plan/Intervention: Instruct warm-up & cool-down if exercising at > 2 METs, Instruct on symptoms of exercise intolerance & actions to take, Instruct & monitor on saf, Assess intial functional capacity & safety risk - 30-day Reassessments 30 day Reassessments:: Met Nutrition - 90-Day Assessment - Program Goals Nutrition Program Goals: LDL <100 optimal. 100 - 129 Near optimal. 130 - 159 Borderline High. 160 - 189 High. Total Cholesterol <200 desirable. 200 - 239 Borderline High. >/= 240 High. HDL < 40 Low >/=60 High. Triglycerides <150 desirable. <199 optimal. VlDL 5 - 40. HgbA1C <7%. BMI <25 Patient has diagnosis of Hyperlipidemia (ICD E78)?: Yes - Visit Date of Assessment:: 12/31/19 - Cholesterol/Lipids Triglycerides (mg/dL): 0 - No recent lab work for post lipids Determine presence & major risk factors that modify LDL goal: Age men > 45 years; women >/= 55 years Outcomes/Goals: Pt IDs own risk factors & lifestyle modifications by Session 10, Verbalizes symptoms of angina & response by session 3., Pt independently manages Intervention/Plan: Instruct on personal lipid levels & lipid goals/NCEP guidelines, Instruct on cholesterol Referral to dietitian:: No 30-day Reassessments:: Progressing - Diabetes (Other Core Measures) Diabetes Type: Not Applicable - Weight Mgt (Other Care) Not Applicable: No Height: 5 ft 6 in Weight:: 192 lb BMI: 30.9 Diagnosis Overweight/Obesity BMI> 30% ICD-10 E66: Yes Outcomes/Goals: Pt sets, maintains & shows weight loss goal & trend during rehab Intervention/Plan: Instruct on ideal BMI & set weight loss goal w/patient, Assist pt to ID & incorporate diet changes for weight loss by S9, Encourage goal of using 250-300dcal per session for weight loss 30 day Reassessments:: Progressing - Healthy Eating Habits Will attend diet classes:: Yes Outcomes/Goals:: Consume diet rich in vegs,fruits,whole grain/high fiber,fish,lean meat, Limit sat/trans fats,cholesterol & added salts & sugars Intervention/Plan:: Assess current eating habits 30-day Reassessments:: Progressing - Education Gave educational materials for:: Healthy eating Medical- 90-Day Assessment - Visit Date of Eval: 12/31/19 Session #:: 31 - Medication Compliance Preventative Medication(s):: Aspirin, Statin/lipid, Beta mauricio, Warfarin/Coumadin H/O mental health issues: depression, anxiety, or addiction?: No Doesn?t believe in the benefits of treatment?: No Believes medications are unnecessary or harmful?: No Has a concern about medication side effects?: No Expresses concern over the cost of medications?: No Outcomes/Goals: Verbalizes medications,desired effect & common side effects @ DC, Pt self-reports following medication regimen, Keeps card in wallet w/medications listed by DC Interventions/plans: Instruct on medication effects & side effects, Review medication list w/patient every two weeks, Instruct importance of taking meds as ordered & assist problem solving 30-day Reassessments:: Met - Tobacco Use Tobacco Use: Non-smoker - Hypertension Hypertension Diagnosis:: Hypertension ICD-10 I10 Resting Blood Pressure:: 110/58 - controlled [place] [employer] Hypertension Guidelines: [place] [employer] Hypertension Guidelines. Normal BP Less than 120/80. Elevated BP 120/80. Hypertension Stage 1: BP 130-139/80-89. Hypertesnion Stage 2: BP 140 or higher/90 or higher. Hypertension Crisis: BP higher than 180/120 Peak Exercise Blood Pressure:: 126/68 Outcomes/Goals: Able to verbalize/achieve optimal blood pressure <130/80, Incorporates diet changes & exercise for blood pressure control by DC Interventions/plan: Instruct on optimal blood pressure, hypertension & medications, Instruct on effects of sodium, alcohol, stress, exercise &hypertension 30 day Reassessments:: Met - Tobacco Cessation Referral Smoking Cessation Referral:: No Individual Education/Counseling:: No Education Schedule Given:: Yes Psychosocial - 90-Day Assess - VIsit Date of Eval: 12/31/19 Session #:: 31 Not Applicable: Yes - Target Goals Target Goals: Assess presence or absence of depression. Using a valid screening tool, maximizes coping skills. Positive support system - Psychosocial Test Tool Used:: Yenni Eldridge QOL Cardiac, PHQ-9 Questionnaire phq-9 Severity: Severity. 1-4 Minimal Depression. 5-9 Mild Depression. 10-14 Moderate Depression. 15-19 Moderately Sever Depression. 20-27 Severe Depression. Rule: - Referral to Behavioral Health PS - Interventions: Yes Attend Stress Management Classes, No Referral to Behavioral Health if PHQ-9 score >9:, No Referral to [facility], No Referral to Physician if PHQ-9 if score is 5-9: - Outcomes/Goals: See list Psychosocial Outcomes/Goals:: ID's personal stressors & 2 strategies to manage stress by discharge - Intervention/Plan: See List Interventions/Plan:: Assess stressors,coping strategies & signs of derpression on admission, Instruct patient to recognize signs & symptoms of depression, Instruct patient to recog - 30-day Reassessments: 30 day Reassessments:: Met Patient Health Questionnaire 90-Day Re-eval Assessment 1. Little interest or pleasure in doing things: Not at all 2. Feeling down, depressed, or hopeless: Not at all 3. Trouble falling or staying asleep, or sleeping too much: Not at all 4. Feeling tired or having little energy: Not at all 5. Poor appetite or overeating: Not at all 6. Feeling bad about yourself -- or that you are a failure or have let yourself or your family down: Not at all 7. Trouble concentrating on things, such as reading the newspaper or watching television: Not at all 8. Moving or speaking so slowly that other people could have noticed. Or the opposite - being so fidgety or restless that you have been moving around a lot more than usual: Not at all 9. Thoughts that you would be better off , or of hurting yourself in some way: Not at all Total Score: 0 Self-Efficacy 90-Day Re-eval Assessment We would like to know how confident you are in doing certain activities. Please select your confidence level for:: Select your confidence level for the following using the scale 1-10 where 1 is not at all confident and 10 is totally confident. Your score is the average of all 6 responses. Fatigue: How confident are you that you can keep the fatigue caused by your disease from interfering with the things you want to do? Select Number: 10 Physical Discomfort or Pain: How confident are you that you can keep the physical discomfort or pain of your disease from interfering with the things you want to do? Select Number: 10 Emotional Distress: How confident are you that you can keep the emotional distress caused by your disease from interfering with the things you want to do? Select Number: 10 Other Symptoms or Health Problems: How confident are you that you can keep other symptoms or health problems from interfering with the things you want to do? Select Number: 10 Different Tasks and Activities: How confident are you that you can do the different tasks and activities needed to manage your health condition so as to reduce your need to see a doctor? Select Number: 10 Medication: How confident are you that you can do things other than just taking medication to reduce how much your illness affects your everyday life? Select Number: 10 Total Score:: 10
[2019-12-31 09:04] VITALS: BP 110/58; BP 126/68; BMI 30.9
== END 2020-01-27 23:59 ==
LOC: CR 11:30
PROVIDERS: Family Provider Family Medicine; PCP Family Medicine; Referring Provider Internal Medicine Cardiovascular Disease; Visit Provider Internal Medicine Cardiovascular Disease
DX: I25.10 Atherosclerotic heart disease of native coronary artery without angina pectoris (principal); I44.2 Atrioventricular block, complete; I48.20 Chronic atrial fibrillation, unspecified; I36.1 Nonrheumatic tricuspid (valve) insufficiency; I35.0 Nonrheumatic aortic (valve) stenosis; I11.0 Hypertensive heart disease with heart failure; I50.32 Chronic diastolic (congestive) heart failure; E78.5 Hyperlipidemia, unspecified; Z95.1 Presence of aortocoronary bypass graft; Z98.890 Other specified postprocedural states; Z95.0 Presence of cardiac pacemaker
CPT/HCPCS: 93798

== ENCOUNTER 2020-01-26 08:26 | Outpatient (RCR) | payer MEDICARE, OTHER, SELFPAY ==
[2019-12-03 10:53] VITALS: BMI 30.9
[2019-12-04 13:53] VITALS: BMI 30.9
[2019-12-30 10:18] VITALS: BMI 30.9
[2019-12-31 09:04] VITALS: BMI 30.9
[2020-01-02 11:11] LABS: Prothrombin Time (Protime)PT. 22.7 SECONDS (11.7-14.9)
[2020-01-16 10:12] LABS: International Normalized Ratio 1.7; Prothrombin Time (Protime)PT. 19.4 SECONDS (11.7-14.9)
[2020-01-26 10:27] LABS: International Normalized Ratio 1.7; Prothrombin Time (Protime)PT. 19.9 SECONDS (11.7-14.9)
== END 2020-01-26 18:00 | disposition home or self-care (01) ==
LOC: MTLAB 08:26
PROVIDERS: Family Provider Family Medicine; PCP Family Medicine; Referring Provider Internal Medicine Cardiovascular Disease; Visit Provider Internal Medicine Cardiovascular Disease
DX: I48.20 Chronic atrial fibrillation, unspecified (principal); Z79.01 Long term (current) use of anticoagulants
CPT/HCPCS: 36415; 85610

== ENCOUNTER 2020-02-24 09:52 | Outpatient (RCR) | payer MEDICARE, OTHER, SELFPAY ==
[2019-12-30 10:18] VITALS: BMI 30.9
[2019-12-31 09:04] VITALS: BMI 30.9
[2020-02-09 10:03] LABS: International Normalized Ratio 1.7
[2020-02-09 10:13] LABS: AST(SGOT) 22 U/L (15-37); Alanine Aminotransfer ALT/SGPT 25 U/L (13-56); Albumin, Serum 3.7 g/dL (3.2-5.0); Alkaline Phosphatase 78 U/L (45-117); Anion Gap 4 (5-15); BUN 18 mg/dL (7-18); BUN/Creat Ratio 18.8 RATIO (10-20); Bilirubin, Direct 0.24 mg/dL (0.00-0.30); Calcium,Total 9.5 mg/dL (8.5-10.1); Chloride 104 mmol/L (98-107); Cholesterol 153 mg/dL (200); Creatinine, Serum 0.96 mg/dL (0.55-1.02); EST Glomerular Filtration Rate 60 mL/min (>60); Est Glom Filt Rate - Afr Amer 72 mL/min (>60); Globulin 3.8 g/dL (2.2-4.2); Glucose 98 mg/dL (74-106); High Density Lipoprotein 47 mg/dL; Magnesium 2.5 mg/dL (1.6-2.6); Potassium 4.2 mmol/L (3.5-5.1); Protein, Total 7.5 g/dL (6.4-8.2); Sodium Level 137 mmol/L (136-145); Triglycerides 132 mg/dL; Very Low Density Lipoprotein 26 mg/dL (5-40)
[2020-02-24 12:39] LABS: International Normalized Ratio 1.9; Prothrombin Time (Protime)PT. 21.3 SECONDS (11.7-14.9)
== END 2020-02-26 18:00 | disposition home or self-care (01) ==
LOC: MTLAB 09:52
PROVIDERS: Nurse Practitioner Family; Family Provider Family Medicine; PCP Family Medicine; Referring Provider Internal Medicine Cardiovascular Disease; Visit Provider Internal Medicine Cardiovascular Disease
DX: I48.20 Chronic atrial fibrillation, unspecified (principal); Z79.01 Long term (current) use of anticoagulants; E78.00 Pure hypercholesterolemia, unspecified; Z95.1 Presence of aortocoronary bypass graft
CPT/HCPCS: 36415; 80048; 80061; 80076; 83735; 85610

== ENCOUNTER → 2020-03-11 10:38 | Outpatient (CLI) | payer MEDICARE, OTHER, SELFPAY ==
[2019-12-31 09:04] VITALS: BMI 30.9
[2020-02-17 10:39] VITALS: BMI 30.9
--- NOTE | 2020-03-11 10:40 | BI_ITS ---
MAMMOGRAPHY - BILATERAL SCREENING REASON FOR EXAM: Female, 79 years old. Routine annual screening examination. PERTINENT HISTORY: Mother with breast cancer. TECHNIQUE: Digital bilateral breast aleah (3D mammographic acquisition) in the CC and MLO projections. 2-D mediolateral oblique (MLO) and craniocaudad (CC) views of both breasts were obtained. CAD: Full Field Digital Mammography with Computer Added Detection was performed. COMPARISON: Comparison is made with prior examination of March 07, 2019 and February 19, 2018. FINDINGS: Breast Composition: The breasts are heterogeneously dense, which may obscure small masses. There are no dominant masses or suspicious calcifications. A battery pack is seen in the left axillary region. No other significant abnormalities are identified. There has been no significant change since the prior study. BI/SCREEN MAMM (CAD) W/ALEAH BILAT IMPRESSION: Stable bilateral screening mammogram. Yearly follow-up mammogram recommended. (A) ASSESSMENT CATEGORY: BIRADS Category 2: Benign. A letter regarding these results will be sent to the patient by the facility within 30 days. Approximately 10% of breast cancers are not detected by mammography. A normal mammogram should not delay biopsy of a clinically suspicious abnormality. [id number] Electronically Signed: Cyril Oneil, at 12:22 EDT , Service support ,
== END ==
PROVIDERS: PCP Family Medicine; Referring Provider Family Medicine; Visit Provider Family Medicine
DX: Z12.31 Encounter for screening mammogram for malignant neoplasm of breast (principal)
CPT/HCPCS: 77063; 77067

== ENCOUNTER 2020-03-23 08:32 | Outpatient (RCR) | payer MEDICARE, OTHER, SELFPAY ==
[2019-12-31 09:04] VITALS: BMI 30.9
[2020-02-17 10:39] VITALS: BMI 30.9
[2020-03-10 10:07] LABS: International Normalized Ratio 2.8; Prothrombin Time (Protime)PT. 29.2 SECONDS (11.7-14.9)
[2020-03-16 10:27] LABS: International Normalized Ratio 2.8; Prothrombin Time (Protime)PT. 28.9 SECONDS (11.7-14.9)
[2020-03-23 10:25] LABS: International Normalized Ratio 2.4; Prothrombin Time (Protime)PT. 26.1 SECONDS (11.7-14.9)
== END 2020-03-23 18:00 | disposition home or self-care (01) ==
LOC: MTLAB 08:32
PROVIDERS: Family Provider Family Medicine; PCP Family Medicine; Referring Provider Internal Medicine Cardiovascular Disease; Visit Provider Internal Medicine Cardiovascular Disease
DX: I48.20 Chronic atrial fibrillation, unspecified (principal); Z79.01 Long term (current) use of anticoagulants
CPT/HCPCS: 36415; 85610

== ENCOUNTER → 2020-03-25 11:29 | Outpatient (CLI) | payer MEDICARE, OTHER, SELFPAY ==
[2019-12-31 09:04] VITALS: BMI 30.9
[2020-02-17 10:39] VITALS: BMI 30.9
[2020-03-25 12:33] LABS: Anion Gap 4 (5-15); BUN 16 mg/dL (7-18); BUN/Creat Ratio 16.5 RATIO (10-20); Calcium,Total 9.1 mg/dL (8.5-10.1); Chloride 105 mmol/L (98-107); Creatinine, Serum 0.97 mg/dL (0.55-1.02); EST Glomerular Filtration Rate 59 mL/min (>60); Est Glom Filt Rate - Afr Amer 71 mL/min (>60); Glucose 102 mg/dL (74-106); Potassium 4.2 mmol/L (3.5-5.1); Sodium Level 140 mmol/L (136-145); Uric Acid 6.4 mg/dL (2.6-6.0)
[2020-03-25 12:40] LABS: Absolute Neutrophil Count 4.3 X10^3/uL (2.0-7.7); Basophil# 0.04 X10^3/uL; Basophil% 0.6 % (0-1); Eosinophil# 0.11 X10^3/uL; Eosinophils% 1.6 % (0-5); Hematocrit 38.3 % (37-47); Lymphocyte % 17.6 % (19-41); Mean Corp Hgb Conc 31.3 g/dL (32-36); Mean Corpuscular Hgb 29.3 pg (27.0-32.0); Mean Corpuscular Volume 93.6 fL (81-99); Mean Platelet Vol. 9.9 fl (6.2-12.0); Monocyte# 1.11 X10^3/uL; Monocyte% 16.3 % (0-10); NRBC Flagged by Analyzer 0 % (0-5); Neutrophil # 4.25 X10^3/uL (2.7-7.7); Neutrophil % 62.3 % (47-70); Platelet Count 187 K/mm3 (150-450); RBC Distribution Width CV 16.3 % (11.6-14.6); RBC Distribution Width SD 55.2 fl (35.1-43.9); Red Blood Count 4.09 M/mm3 (4.2-5.4); White Blood Count 6.8 K/mm3 (4.4-11.0)
== END ==
PROVIDERS: PCP Family Medicine; Visit Provider Family Medicine
DX: M10.9 Gout, unspecified (principal); I10 Essential (primary) hypertension; Z51.81 Encounter for therapeutic drug level monitoring
CPT/HCPCS: 36415; 80048; 84550; 85025

== ENCOUNTER 2020-04-05 09:30 | Outpatient (RCR) | payer MEDICARE, OTHER, SELFPAY ==
[2019-12-31 09:04] VITALS: BMI 30.9
[2020-02-17 10:39] VITALS: BMI 30.9
[2020-03-31 10:47] LABS: Prothrombin Time (Protime)PT. 37.1 SECONDS (11.7-14.9)
[2020-03-31 10:53] LABS: International Normalized Ratio 3.8
[2020-04-05 10:36] LABS: International Normalized Ratio 1.6; Prothrombin Time (Protime)PT. 18.3 SECONDS (11.7-14.9)
== END 2020-04-05 18:00 | disposition home or self-care (01) ==
LOC: LAB 09:30
PROVIDERS: Family Provider Family Medicine; PCP Family Medicine; Referring Provider Internal Medicine Cardiovascular Disease; Visit Provider Internal Medicine Cardiovascular Disease
DX: I48.20 Chronic atrial fibrillation, unspecified (principal); Z79.01 Long term (current) use of anticoagulants
CPT/HCPCS: 36415; 85610

== ENCOUNTER → 2020-04-09 12:48 | Outpatient (CLI) | payer MEDICARE, OTHER, SELFPAY ==
[2019-12-31 09:04] VITALS: BMI 30.9
[2020-02-17 10:39] VITALS: BMI 30.9
--- NOTE | 2020-04-09 12:54 | ART_ITS ---
Reason For Study: Intermittent cramps Procedure A bilateral lower extremity continuous wave Doppler with analog waveform analysis and ankle brachial indexes. Left Segmental Pressures Left brachial= 134mmHg. Left posterior tibial artery = 146mmHg. Left dorsalis pedis artery = 118mmHg. Left digit = 102 mmHg. The left dorsalis pedis waveforms are triphasic. The left posterior tibial artery waveforms are triphasic. Right Segmental Pressures Right brachial= 136mmHg. Right posterior tibial artery = 168mmHg. Right dorsalis pedis artery = 149mmHg. Right digit = >254 mmHg. The right dorsalis pedis waveforms are triphasic. The right posterior tibial artery waveforms are triphasic. Indices The right ankle brachial index by the dorsalis pedis is 1.10. The right ankle brachial index by the posterior tibial artery is 1.24. The right digital-brachial index is NC. The left ankle brachial index by the dorsalis pedis is 0.87. The left ankle brachial index by the posterior tibial artery is 1.07. The left digital-brachial index is 0.75. Interpretation Summary Minimal arterial occlusive disease bilateral lower extremities at rest. Right lower extremity ankle-brachial indices at rest are both normal but the digital brachial index could not be obtained due to artificially elevated systolic pressure greater than 254 consistent with medial calcification of the vessel wall. Doppler waveforms of the right posterior tibial and dorsalis pedis are triphasic. Findings would suggest mild disease. Left lower extremity PT ankle-brachial index is normal with a slightly abnormal left DP index of 0.87. In and of itself that would be consistent with moderate severity of disease. Again the left posterior tibial and dorsalis pedis waveforms are triphasic at rest. The left digital brachial index is normal. Overall these findings would be consistent with mild disease. Ordering Physician: Davis Lopez Referring Physician: Davis Lopez Performed By: Sydni Carson RVT
== END ==
PROVIDERS: PCP Family Medicine; Referring Provider Family Medicine; Visit Provider Family Medicine
DX: M79.604 Pain in right leg (principal); I79.8 Other disorders of arteries, arterioles and capillaries in diseases classified elsewhere; Z78.9 Other specified health status
CPT/HCPCS: 93922

== ENCOUNTER → 2020-05-21 10:53 | Outpatient (CLI) | payer MEDICARE, OTHER, SELFPAY ==
[2019-12-31 09:04] VITALS: BMI 30.9
[2020-02-17 10:39] VITALS: BMI 30.9
--- NOTE | 2020-05-21 10:56 | VDLE_ITS ---
Reason For Study: LEG PAIN/ SWELLING RIGHT GSV is normal. CFV is compressible, spontaneous, phasic, competent and demonstrates normal augmentation. FV is compressible, spontaneous, phasic, competent and demonstrates normal augmentation. POP V is compressible, spontaneous, phasic, competent and demonstrates normal augmentation. T/P Trunk is compressible. PTV is compressible. RT PerV is compressible. GSV above knee is INCOMPETENT for greater than 0.5 seconds. RT ASV below knee is INCOMPETENT for greater than .5 sec. RT SSV is INCOMPETENT for greater than .5 sec. Procedure Exam performed in department. A preliminary report was called and/or faxed to DR LOPEZ. Interpretation Summary Deep veins of the right lower extremity are patent and compressible segmentally. There is no evidence of right lower extremity deep vein thrombosis. Valvular competence appears intact within the proximal deep venous system on the right . The right great saphenous vein appears patent and compressible segmentally. The right great saphenous vein is incompetent above the knee, but competence was not assessed below the knee. The right small saphenous vein is patent and incompetent. The right accessory saphenous vein below the knee is incompetent. Ordering Physician: Davis Lopez Referring Physician: Davis Lopez Performed By: Ciera Forde, FINESSECS, RVT
== END ==
PROVIDERS: PCP Family Medicine; Referring Provider Family Medicine; Visit Provider Family Medicine
DX: M79.661 Pain in right lower leg (principal); M79.89 Other specified soft tissue disorders
CPT/HCPCS: 93971

== ENCOUNTER 2020-07-13 10:46 | Emergency (ER) | payer MEDICARE, OTHER, SELFPAY ==
[2019-12-31 09:04] VITALS: BMI 30.9
[2020-02-17 10:39] VITALS: BMI 30.9
[2020-07-13 10:47] VITALS: BP 144/61; PULSE 69; RESP 18; TEMP 36.6; O2SAT 98; BMI 30.4
--- NOTE | 2020-07-13 11:08 | ED.VIS.GEN ---
History of Present Illness Chief Complaint: Allergic Reaction Informant: Patient Onset: Yesterday Narrative: Patient presents the emergency room for the evaluation of hives. Patient states that she woke yesterday morning with them. She went and saw her doctor around noon and was given an injection of a medicine. She believes it was a steroid. She is also given a triamcinolone cream to apply. She states she continues to have the hives in fact have spread. Denies any respiratory issues. She states that she is scratching so much that she is now bleeding her thinning skin and also that is complicated by her being on anticoagulants. She denies any changes in soaps lotions detergents or clothing or known exposures. She states that she had been working on the yard but denies any exposures. 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 (8) Non-ischemic cardiomyopathy Status: Resolved Past Medical History - Allergies and Home Meds Allergies/Adverse Reactions: Allergies No Known Allergies Allergy (Verified 07/13/20 10:50) Primary Care Physician: Davis Lopez DO [Primary Care Provider] - Surgical History: appendectomy, coronary bypass surgery, , stents Smoking Status: Former smoker - Family History Maternal Family History: Family History (Last Reviewed 05/18/20 @ 09:50 by Zeina Bran NP, CONTRACTING SPECIALIST-C) Father Myocardial infarction Mother Cancer Sister Dementia Sister Colon cancer Family History: Reports: No pertinent history Paternal Family History: Family History (Last Reviewed 05/18/20 @ 09:50 by Zeina Bran NP, CONTRACTING SPECIALIST-C) Father Myocardial infarction Mother Cancer Sister Dementia Sister Colon cancer Family History: Reports: No pertinent history Review of Systems General: Denies: Chills, Fever, Sweats Eyes: Denies: Visual changes - bilaterally, Diplopia ENT: Denies: Rhinorrhea, Sore throat Cardiovascular: Denies: Chest pain, Palpitations Respiratory: Denies: Dyspnea, Cough, Dyspnea on exertion Gastrointestinal: Denies: Abdominal pain, Nausea, Vomiting, Diarrhea, Melena, Hematochezia Genitourinary: Denies: Dysuria, Hematuria, Frequency Musculoskeletal: Denies: Back pain, Extremity Pain Skin: Reports: Rash. Denies: Wounds Neurological: Denies: Headache, Weakness, Numbness Physical Exam Vital Signs/Narrative: Vital Signs Temp Pulse Resp BP Pulse Ox 07/13/20 10:47 98 F 69 18 144/61 H 98 Inital Vital Signs reviewed: Yes General: Well nourished, Well developed, No Acute Distress Head: Normocephalic, Atraumatic Eyes: Perrl, EOMI ENT: Moist mucous membranes, No rhinorrhea Neck: Supple, Nontender Cardiovascular: Regular rate, Regular rhythm, No murmurs Respiratory: No distress, CTA bilaterally, Chest nontender Abdomen: Soft, Nontender, Nondistended, Normal bowel sounds Back: Nontender, Normal Inspection Extremities: Nontender, No edema Skin: Normal color, - - diffuse urticaria Neurological: Alert, Oriented x3, Cranial nerves II-XII grossly intact, Normal Strength, Normal Sensation Psychological: Normal affect, Normal Mood Diagnostic/Tx/Re-eval - Medical Decision Making Patient clearly has diffuse hives. There is no airway/respiratory compromise. Going to have her get an injection of Benadryl and place her on Claritin. She should continue Benadryl at home. We can also write for some prednisone. Follow-up with primary care if not improved ED Disposition - Plan for ED Patient: Disposition: Home or Assisted Living Diagnosis: Urticaria Instructions: ED URTICARIA Prescriptions: Loratadine [Claritin] 10 mg PO DAILY #5 tab Prescription Printed predniSONE tablet 60 mg PO DAILY #15 tab Prescription Printed Referrals: Davis Lopez DO [Primary Care Provider] - 3-5 Days Additional Instructions: Benadryl 25 to 50 mg every 6 hours. Avoid hot/warm showers and baths. Avoid sun and warm temperatures.
[2020-07-13] MEDS: predniSONE 20 MG Tablet 60 MG PO (11:18)
[2020-07-13] MEDS: DiphenhydrAMINE 50 MG/ML Syringe IM (11:18)
[2020-07-13] MEDS: Loratadine 10 MG Tablet PO (11:18)
== END 2020-07-13 11:29 | disposition home or self-care (01) ==
LOC: ED 11:18
PROVIDERS: Emergency Provider Emergency Medicine; PCP Family Medicine
DX: L50.9 Urticaria, unspecified (principal); Z79.01 Long term (current) use of anticoagulants
CPT/HCPCS: 96372; 99283

== ENCOUNTER → 2020-08-24 09:52 | Outpatient (CLI) | payer MEDICARE, OTHER, SELFPAY ==
[2019-12-31 09:04] VITALS: BMI 30.9
[2020-02-17 10:39] VITALS: BMI 30.9
[2020-07-22 12:27] VITALS: BMI 31.7
--- NOTE | 2020-08-24 15:21 | PFTCOMP ---
COMPLETE PULMONARY FUNCTION TEST INTERPRETATION Brief HPI: Patient is a 80 year old female, currently under the care of myself, who presents to [facility] for complete pulmonary function tests secondary to diagnosis of COPD. Respiratory therapist reports good effort and reproducible results. Interpretation: Forced expiration spirometry shows a mild large airways obstructive ventilatory defect with an FEV1 of 78% predicted. There is a significant bronchodilator response in FVC and FEV1 by strict ATS criteria. Spirograms are of good quality and plateau slowly, indicating slowly emptying areas of the lungs. The respiratory flow volume loop shows decreased expiratory flow rates at all lung volumes consistent with airway obstruction. Lung volumes by body plethysmography show a normal total lung capacity at 5.99 L, 108% predicted. FRC and RV are elevated out of proportion. Lung volume measurements are consistent with air-trapping. Diffusion capacity by carbon monoxide is normal at 72% predicted. The airway resistance is elevated. Compared to previous pulmonary function tests from 07/08/2019, there has been no significant change. Impression: Partial reversible mild large airways obstructive ventilatory defect in a pattern consistent with COPD/asthma overlap syndrome
== END ==
PROVIDERS: PCP Family Medicine; Referring Provider Nurse Practitioner Acute Care; Visit Provider Nurse Practitioner Acute Care
DX: J44.9 Chronic obstructive pulmonary disease, unspecified (principal)
CPT/HCPCS: 94060; 94726; 94729

== ENCOUNTER → 2020-10-15 13:44 | Outpatient (CLI) | payer MEDICARE, OTHER, SELFPAY ==
[2019-12-31 09:04] VITALS: BMI 30.9
[2020-10-15 13:03] VITALS: BMI 28.8
[2020-10-15 14:13] LABS: Absolute Lymphocyte Count 1.24 X10^3/uL (0.83-4.51); Absolute Neutrophil Count 4.5 X10^3/uL (2.0-7.7); Basophil# 0.03 X10^3/uL; Basophil% 0.5 % (0-1); Eosinophil# 0.07 X10^3/uL; Eosinophils% 1.1 % (0-5); Hematocrit 44.6 % (37-47); Hemoglobin 14.4 g/dL (12.0-15.0); Lymphocyte # 1.24 X10^3/ul (4.0); Lymphocyte % 18.7 % (19-41); Mean Corp Hgb Conc 32.3 g/dL (32-36); Mean Corpuscular Hgb 31.1 pg (27.0-32.0); Mean Corpuscular Volume 96.3 fL (81-99); Mean Platelet Vol. 9.6 fl (6.2-12.0); Monocyte# 0.74 X10^3/uL; Monocyte% 11.2 % (0-10); NRBC Flagged by Analyzer 0 % (0-5); Neutrophil # 4.52 X10^3/uL (2.7-7.7); Platelet Count 199 K/mm3 (150-450); RBC Distribution Width CV 13.8 % (11.6-14.6); Red Blood Count 4.63 M/mm3 (4.2-5.4); White Blood Count 6.6 K/mm3 (4.4-11.0)
[2020-10-15 14:54] LABS: ALB/GLOB Ratio 1.1 RATIO (0.9-2.4); AST(SGOT) 19 U/L (15-37); Alanine Aminotransfer ALT/SGPT 21 U/L (13-56); Albumin, Serum 4.1 g/dL (3.2-5.0); Alkaline Phosphatase 85 U/L (45-117); Anion Gap 6 (5-15); BUN 19 mg/dL (7-18); BUN/Creat Ratio 17.6 RATIO (10-20); Calcium,Total 9.4 mg/dL (8.5-10.1); Chloride 103 mmol/L (98-107); Cholesterol 177 mg/dL (200); Creatinine, Serum 1.08 mg/dL (0.55-1.02); EST Glomerular Filtration Rate 52 mL/min (>60); Est Glom Filt Rate - Afr Amer 63 mL/min (>60); Globulin 3.6 g/dL (2.2-4.2); Glucose 115 mg/dL (74-106); Magnesium 2.5 mg/dL (1.6-2.6); Potassium 3.5 mmol/L (3.5-5.1); Protein, Total 7.7 g/dL (6.4-8.2); Sodium Level 139 mmol/L (136-145); Thyroid Stim Hormone (TSH) 1.05 uIU/mL (0.358-3.74)
== END ==
PROVIDERS: PCP Family Medicine; Referring Provider Nurse Practitioner Family; Visit Provider Nurse Practitioner Family
DX: I48.11 Longstanding persistent atrial fibrillation (principal); R53.83 Other fatigue; I25.10 Atherosclerotic heart disease of native coronary artery without angina pectoris; I11.0 Hypertensive heart disease with heart failure; I50.32 Chronic diastolic (congestive) heart failure; E78.5 Hyperlipidemia, unspecified; E03.9 Hypothyroidism, unspecified; Z95.1 Presence of aortocoronary bypass graft
CPT/HCPCS: 36415; 80053; 82465; 83735; 84439; 84443; 85025

== ENCOUNTER → 2021-01-04 09:28 | Outpatient (CLI) | payer MEDICARE, OTHER, SELFPAY ==
[2019-12-31 09:04] VITALS: BMI 30.9
[2020-10-15 13:03] VITALS: BMI 28.8
[2021-01-04 12:42] LABS: AST(SGOT) 21 U/L (15-37); Alanine Aminotransfer ALT/SGPT 22 U/L (13-56); Albumin, Serum 3.9 g/dL (3.2-5.0); Alkaline Phosphatase 85 U/L (45-117); Bilirubin, Direct 0.25 mg/dL (0.00-0.30); Cholesterol 143 mg/dL (200); Globulin 3.5 g/dL (2.2-4.2); High Density Lipoprotein 40 mg/dL; Protein, Total 7.4 g/dL (6.4-8.2); Triglycerides 157 mg/dL; Very Low Density Lipoprotein 31 mg/dL (5-40)
== END ==
PROVIDERS: PCP Family Medicine; Referring Provider Nurse Practitioner Family; Visit Provider Nurse Practitioner Family
DX: I25.10 Atherosclerotic heart disease of native coronary artery without angina pectoris (principal); E78.5 Hyperlipidemia, unspecified
CPT/HCPCS: 36415; 80061; 80076

== ENCOUNTER → 2021-03-14 14:44 | Outpatient (CLI) | payer MEDICARE, OTHER, SELFPAY ==
[2019-12-31 09:04] VITALS: BMI 30.9
[2021-01-21 11:20] VITALS: BMI 28.7
--- NOTE | 2021-03-14 14:46 | BI_ITS ---
MAMMOGRAPHY - BILATERAL SCREENING 3-D TOMOSYNTHESIS REASON FOR EXAM: Female, 80 years old. Routine screening PERTINENT HISTORY: Mother with breast cancer.. TECHNIQUE: 2-D mammograms and 3-D Tomosynthesis of the breast (s) were performed. CAD was performed. COMPARISON: 03/11/2020 FINDINGS: The breast composition is heterogeneously dense that can obscure small breast masses. Scattered benign calcifications are seen. No dense spiculated masses or suspicious microcalcifications are identified. No architectural distortion is identified. There is no skin thickening or retraction. There has been no significant change since the prior study. BI/SCRN MAMM (CAD)W/ALEAH BILAT IMPRESSION: No mammographic signs of malignancy. Routine yearly mammograms recommended. ASSESSMENT CATEGORY: BIRADS Category 2: Benign. A letter regarding these results will be sent to the patient by the facility within 30 days. FOLLOW UP RECOMMENDATION: Yearly follow up mammogram recommended. (A) Approximately 10% of breast cancers are not detected by mammography. A normal mammogram should not delay biopsy of a clinically suspicious abnormality. Electronically Signed: Ludwig Fields MD at 16:05 EDT , Service support ,
== END ==
PROVIDERS: PCP Family Medicine; Referring Provider Family Medicine; Visit Provider Family Medicine
DX: Z12.31 Encounter for screening mammogram for malignant neoplasm of breast (principal); Z80.3 Family history of malignant neoplasm of breast
CPT/HCPCS: 77063; 77067

== ENCOUNTER → 2021-04-04 09:31 | Outpatient (CLI) | payer MEDICARE, OTHER, SELFPAY ==
[2019-12-31 09:04] VITALS: BMI 30.9
[2021-01-21 11:20] VITALS: BMI 28.7
[2021-04-04 10:17] LABS: Hemoglobin 12.8 g/dL (12.0-15.0); Mean Corp Hgb Conc 32.8 g/dL (32-36); Mean Corpuscular Volume 97.5 fL (81-99); Mean Platelet Vol. 10.5 fl (6.2-12.0); Platelet Count 130 K/mm3 (150-450); RBC Distribution Width CV 13.1 % (11.6-14.6); RBC Distribution Width SD 46.4 fl (35.1-43.9); White Blood Count 4.9 K/mm3 (4.4-11.0)
== END ==
PROVIDERS: PCP Family Medicine; Referring Provider Internal Medicine Cardiovascular Disease; Visit Provider Internal Medicine Cardiovascular Disease
DX: T14.8XXA Other injury of unspecified body region, initial encounter (principal); Z95.5 Presence of coronary angioplasty implant and graft
CPT/HCPCS: 36415; 85027

== ENCOUNTER → 2021-10-11 08:53 | Outpatient (CLI) | payer MEDICARE, OTHER, SELFPAY ==
[2019-12-31 09:04] VITALS: BMI 30.9
[2021-10-11 10:48] LABS: AST(SGOT) 21 U/L (15-37); Alanine Aminotransfer ALT/SGPT 21 U/L (13-56); Albumin, Serum 3.7 g/dL (3.2-5.0); Alkaline Phosphatase 67 U/L (45-117); Bilirubin, Direct 0.18 mg/dL (0.00-0.30); Cholesterol 134 mg/dL (200); Globulin 3.8 g/dL (2.2-4.2); High Density Lipoprotein 39 mg/dL; Protein, Total 7.5 g/dL (6.4-8.2); Triglycerides 143 mg/dL; Very Low Density Lipoprotein 29 mg/dL (5-40)
== END ==
PROVIDERS: PCP Family Medicine; Referring Provider Nurse Practitioner Family; Visit Provider Nurse Practitioner Family
DX: E78.00 Pure hypercholesterolemia, unspecified (principal)
CPT/HCPCS: 36415; 80061; 80076

== ENCOUNTER → 2022-03-15 | Outpatient (CLI) | payer MEDICARE, OTHER, SELFPAY ==
[2019-12-31 09:04] VITALS: BMI 30.9
--- NOTE | 2022-03-15 08:22 | BI_ITS ---
MAMMOGRAPHY - BILATERAL SCREENING REASON FOR EXAM: Female, 81 years old. Routine annual screening examination. PERTINENT HISTORY: Mother with breast cancer. TECHNIQUE: Digital bilateral breast aleah (3D mammographic acquisition) in the CC and MLO projections. 2-D mediolateral oblique (MLO) and craniocaudad (CC) views of both breasts were obtained. CAD: Full Field Digital Mammography with Computer Added Detection was performed. COMPARISON: Comparison is made with prior study 03/14/2021 and 03/11/2020. FINDINGS: Breast Composition: The breasts are heterogeneously dense, which may obscure small masses. There are no dominant masses or suspicious calcifications. A pacemaker battery pack is once again seen in the left axillary region. No other significant abnormalities are identified. There has been no significant change since the prior study. BI/SCRN MAMM (CAD)W/ALEAH BILAT IMPRESSION: Stable bilateral screening mammogram. Yearly follow-up mammogram recommended. (A) ASSESSMENT CATEGORY: BIRADS Category 2: Benign. A letter regarding these results will be sent to the patient by the facility within 30 days. Approximately 10% of breast cancers are not detected by mammography. A normal mammogram should not delay biopsy of a clinically suspicious abnormality. [id number] Electronically Signed: Cyril Oneil MD at 10:12 EDT ,
== END | disposition home or self-care (01) ==
LOC: OPBI 08:21
PROVIDERS: PCP Family Medicine; Visit Provider Family Medicine
DX: Z12.31 Encounter for screening mammogram for malignant neoplasm of breast (principal); Z80.3 Family history of malignant neoplasm of breast
CPT/HCPCS: 77063; 77067

== ENCOUNTER → 2022-03-17 | Outpatient (CLI) | payer MEDICARE, OTHER, SELFPAY ==
[2019-12-31 09:04] VITALS: BMI 30.9
--- NOTE | 2022-03-17 12:22 | STRESSREP ---
Stress Test Report Davis allergic myocardial perfusion stress test. 81-year-old lady with a history of chest pain. Stress protocol: Resting EKG demonstrates atrial fibrillation with ventricular paced rhythm at 70 bpm. Resting blood pressure is 138/84 mmHg. 0.4 mg of regadenoson was infused per usual protocol followed by Intravenous saline flush injection continuous EKG monitoring was performed. The patient maintained ventricular paced rhythm throughout the infusion. No ST changes were noted. The peak blood pressure was 138/84 mmHg. No symptoms were noted. Myocardial perfusion protocol. 14.6 mCi of technetium 99m sestamibi was injected at rest. 0.4 mg of regadenoson was infused per usual protocol. And at peak infusion 44.1 mCi of technetium 99m sestamibi was injected stress images were obtained stress and rest images were reconstructed and compared in the short axis vertical long and horizontal long axis. Gated images were also obtained. Perfusion SPECT analysis: Review of the stress images demonstrate normal uptake of tracer noted in all areas of the myocardium. The resting images similarly demonstrate normal uptake of tracer noted in all areas of the myocardium. No areas of reversibility are noted suggest ischemia no previous infarct is noted. Gated SPECT analysis: The gated ejection fraction is 57%. Conclusion: Normal pharmacologic myocardial perfusion stress test. Preserved ejection fraction.
== END | disposition home or self-care (01) ==
LOC: CVS 06:27
PROVIDERS: PCP Family Medicine; Referring Provider Physician Assistant Medical; Visit Provider Physician Assistant Medical
DX: R07.9 Chest pain, unspecified (principal)
CPT/HCPCS: 78452; 93017; A9500; A4216; J2785

== ENCOUNTER 2022-04-04 08:28 | Outpatient (RCR) | payer MEDICARE, OTHER, SELFPAY ==
[2019-12-31 09:04] VITALS: BMI 30.9
[2022-04-04 09:20] VITALS: BP 135/73; PULSE 69; TEMP 36.3; BMI 30.4
--- NOTE | 2022-04-04 10:11 | PCM.WC.HP ---
History of Present Illness Date of Service: 04/04/22 Progress of Wound: This 81-year-old female seen in clinic today for bilateral lower extremity ulcerations with associated edema and varicose veins. Patient notes that she has been treating the site with topical triamcinolone ointment in the absence of compression patient denies any constitutional symptoms, but notes resolution of her wounds. She notes some itching and irritation to the previous wound sites with redness. Patient has a history of coronary artery bypass surgery secondary to coronary artery disease and has a pacemaker. Patient has history of hyperlipidemia COPD and is on long-term anticoagulants. [facility] Medical History Asthma-COPD overlap syndrome Atherosclerosis of coronary artery of [place] heart without angina pectoris Bilateral renal artery stenosis Carotid bruit Chronic diastolic (congestive) heart failure Complete heart block COPD (chronic obstructive pulmonary disease) COVID-19 Essential (primary) hypertension History of pulmonary embolism HLD (hyperlipidemia) Hypothyroidism Longstanding persistent atrial fibrillation Non-ischemic cardiomyopathy Nonrheumatic aortic (valve) stenosis Osteoarthritis SARS-CoV-2 positive Home Medications aspirin 81 mg PO QHS 09/08/14 [History Last Taken 06/20/19] levothyroxine 100 mcg tablet 100 mcg PO QDAY 04/19/18 [History Last Taken Unknown] spacer #1 ea 11/24/19 [Rx Last Taken Unknown] allopurinol 100 mg tablet 200 mg PO DAILY tab 07/22/20 [History Last Taken Unknown] albuterol sulfate 90 mcg/actuation aerosol inhaler 2 puff INHALATION Q6H PRN #8.5 g 09/01/20 [Rx Last Taken Unknown] sertraline 50 mg tablet 50 mg PO DAILY #90 tab 10/15/20 [Rx Last Taken Unknown] fluticasone propionate 250 mcg/actuation blister powder for inhalation 1 inh INHALATION BID #3 device 03/15/21 [Rx Last Taken Unknown] atorvastatin 40 mg tablet 40 mg PO QHS #90 tab 08/16/21 [Rx Last Taken Unknown] metoprolol tartrate 25 mg tablet 12.5 mg PO BID #90 tab 08/16/21 [Rx Last Taken Unknown] potassium chloride 20 mEq tablet,extended release 20 meq PO DAILY #90 tab 08/16/21 [Rx Last Taken Unknown] torsemide 20 mg tablet 20 mg PO DAILY #90 tab 08/16/21 [Rx Last Taken Unknown] triamcinolone acetonide 0.1 % topical cream 1 applic TOPICAL DAILY g 08/16/21 [History Last Taken Unknown] calcium carb-vit [id number] 333 mg-200 unit-133 mg-5 mg tablet 1 tab PO DAILY 10/11/21 [History Last Taken Unknown] apixaban 5 mg tablet 5 mg PO BID #180 tab 11/04/21 [Rx Last Taken Unknown] magnesium citrate 100 mg tablet 250 mg PO DAILY tab 02/14/22 [History Last Taken Unknown] Allergy/AdvReac Type Severity Reaction Status Date / Time No Known Allergies Allergy Verified 03/28/22 11:24 Family History Father Myocardial infarction Mother Cancer breast Sister Dementia Sister Colon cancer Surgical History H/O coronary artery bypass surgery (08/28/19) History of appendectomy History of arthroscopic knee surgery History of carpal tunnel release of both wrists History of coronary artery stent placement (07/23/09) History of left heart catheterization (06/20/19) History of open heart surgery (10/15/09) History of radiofrequency ablation procedure for cardiac arrhythmia (10/15/09) History of stent insertion of renal artery (03/22/11) Hx of atrioventricular node ablation (08/02/12) Presence of cardiac pacemaker (04/29/18) Social History Smoking Status: Former smoker Tobacco: How many years used: 20 how long ago did patient quit smokin, 1ppd second hand exposure: Yes alcohol intake: current alcohol intake frequency: holidays/special occasions only substance use type: does not use caffeine: Yes (occasional) Type: carbonated beverages and coffee Vital Signs Vital Signs Vital Signs: 04/04/22 09:20 Temperature 97.3 F L Temperature Source Temporal Pulse Rate 69 Blood Pressure 135/73 H Blood Pressure Mean 93 Blood Pressure Source Monitor Oxygen Delivery Method Nasal Cannula Weight Weight: 90.718 kg Body Mass Index (BMI) 30.4 Physical Exam Narrative Patient alert oriented person place and time. Vascular: Dorsalis pedis posterior tibial pulses palpable 2 out of 4 to bilateral lower extremity. +1 pitting edema noted to Feliciano malleoli region to bilateral lower extremity. Varicosities noted superficially. Hemosiderin deposits noted bilaterally. Wounds at this time are healed but there is noted to be some erythema to the previous wound sites. Neurologic: Light touch protective sensation intact to bilateral lower extremity. Dermatologic: Erythema noted to Feliciano malleoli region along course of great saphenous vein likely secondary to stasis dermatitis. Musculoskeletal: No pain with calf squeeze. No gross musculoskeletal deformity pain. Muscular strength full to bilateral lower extremity compartments. Debridement Note Debridement Note Post-Debridement Measurements and Additional Note: Post-Debridement Measurements/Treatment WC - Nurse 1 - General Ulcer Assessment Start: 04/04/22 09:19 Freq: Status: Active Protocol: MAYO Activity Type Activity Date Activity User E-Sign Co-Sign Detail Recorded Client Recorded Date Recorded By Document 04/04/22 09:20 INOCENCIA [id number] 04/04/22 09:28 INOCENCIA 04/04/22 09:20 WC - Today's Visit Information Type of service Initial Visit Arrival Mode Ambulatory Patient Identification Verified (Name & Yes ) Patient Requires Transmission-Based No Precautions Safety Precautions NA Height and Weight Height 5 ft 8 in Weight 90.718 kg Weight in Pounds 200.0 lbs Body Mass Index (BMI) 30.4 BMI Classification Obese BSA - Jose Daniel 2.04 Vital Signs Temperature (97.8 F-99.1 F) 97.3 F L Temperature Source Temporal Pulse Rate (60-100) 69 Pulse Location Monitor Oxygen Delivery Method Nasal Cannula Blood Pressure (90/60-120/80) 135/73 H Blood Pressure Mean 93 Source Monitor History Since Last Visit- (Skip if this is Patient's initial visit) Left Footwear Regular Shoe Right Footwear Regular Shoe Pain Scale: 0-10 Numeric Is Patient Pain Free? Yes - Nurse 1 - General Ulcer Measurement Start: 04/04/22 09:19 Freq: Status: Active Protocol: Activity Type Activity Date Activity User E-Sign Co-Sign Detail Recorded Client Recorded Date Recorded By Document 04/04/22 09:20 INOCENCIA [id number] 04/04/22 09:28 INOCENCIA 04/04/22 09:20 Wound Center Nurse 1 Right Calf (cm) 37 Right Ankle (cm) 21 Left Calf (cm) 35.5 Left Ankle (cm) 21 WC - Nurse 2 - General Ulcer CM Notes Start: 04/04/22 09:19 Freq: Status: Active Protocol: Activity Type Activity Date Activity User E-Sign Co-Sign Detail Recorded Client Recorded Date Recorded By Document 04/04/22 09:34 RAMAN [id number] 04/04/22 09:38 RAMAN 04/04/22 09:34 Pain Scale: 0-10 Numeric Is Patient Pain Free? Yes - Nurse 3 - General Ulcer D/C NN Start: 04/04/22 09:19 Freq: Status: Active Protocol: Activity Type Activity Date Activity User E-Sign Co-Sign Detail Recorded Client Recorded Date Recorded By Document 04/04/22 09:20 INOCENCIA [id number] 04/04/22 09:28 CA Document 04/04/22 09:46 [id number] 04/04/22 09:47 04/04/22 04/04/22 09:20 09:46 Vital Signs Temperature (97.8 F-99.1 F) 97.3 F L Temperature Source Temporal Pulse Rate (60-100) 69 Pulse Location Monitor Oxygen Delivery Method Nasal Cannula Blood Pressure (90/60-120/80) 135/73 H Blood Pressure Mean 93 Source Monitor Pain Scale: 0-10 Numeric Is Patient Pain Free? Yes Yes - Visit Discharge Discharge Condition Stable Ambulatory Status Ambulatory Transportation Private Auto Medication Reconcilliation completed & Yes provided to patient/care provider Assessment/Plan Assessment/Plan (1) Venous insufficiency (chronic) (peripheral): CODE(S): I87.2 - Venous insufficiency (chronic) (peripheral) PLAN: Patient examined evaluated, all findings cussed patient detail. Discussed etiology of patient's wounds is secondary to chronic venous insufficiency. I have recommended compression elevation and exercise to manage patients edema. Patient will return to wearing compression stockings on a daily basis to prevent excess edema formation I have ordered arterial and venous studies on this patient for further work-up. Patient will continue use of triamcinolone ointment to those previous wound sites where there is residual erythema secondary to stasis dermatitis. Patient has some nerve symptoms and will follow up in my office as an outpatient for additional work-up. Will consider referral to Dr. Luke for additional treatment regarding venous insufficiency pending results of vascular studies. . 30 minutes spent with [id number] and on face work-up with patient (2) Peripheral vascular disease, unspecified: CODE(S): I73.9 - Peripheral vascular disease, unspecified
== END 2022-04-27 23:59 | disposition home or self-care (01) ==
LOC: WC 08:28
PROVIDERS: PCP Family Medicine; Visit Provider Podiatrist
DX: I11.0 Hypertensive heart disease with heart failure (principal); J44.9 Chronic obstructive pulmonary disease, unspecified; I50.32 Chronic diastolic (congestive) heart failure; I73.9 Peripheral vascular disease, unspecified; Z79.82 Long term (current) use of aspirin; I87.2 Venous insufficiency (chronic) (peripheral); I25.10 Atherosclerotic heart disease of native coronary artery without angina pectoris; E78.5 Hyperlipidemia, unspecified; Z79.01 Long term (current) use of anticoagulants; Z87.891 Personal history of nicotine dependence; Z86.16 Personal history of COVID-19; Z79.899 Other long term (current) drug therapy; M19.90 Unspecified osteoarthritis, unspecified site; Z79.890 Hormone replacement therapy; R60.0 Localized edema; Z95.0 Presence of cardiac pacemaker
CPT/HCPCS: 99213; G0463

== ENCOUNTER → 2022-05-22 | Outpatient (CLI) | payer MEDICARE, OTHER, SELFPAY ==
[2019-12-31 09:04] VITALS: BMI 30.9
--- NOTE | 2022-05-22 07:58 | ECHOCS_ITS ---
Reason For Study: MURMUR Procedure This was a 2D Doppler, Color Flow transthoracic echocardiogram. The study was technically difficult. Contrast injection was performed. Exam performed in department. Left Ventricle Normal LV size. Left ventricular systolic function is lower limits of normal. Stage 2 diastolic dysfunction. No regional wall motion abnormalities noted. Right Ventricle Normal RV size. ICD or pacer leads identified within the right ventricle. Normal systolic function. Atria The left atrium is moderately enlarged. The right atrium is severely enlarged. Mitral Valve Normal mitral valve. Mild (1+) eccentric mitral valve insufficiency. Tricuspid Valve Normal tricuspid valve. Moderate (2+) tricuspid valve insufficiency. Aortic Valve Trisinus/trileaflet aortic valve. Mild diffuse aortic valve thickening. Peak aortic valve gradient 22 mmHg. Mean aortic valve gradient 14 mmHg. Mild (1+) aortic valve insufficiency. Pulmonic Valve Normal pulmonic valve. Great Vessels Normal aortic root. The pulmonary artery is normal size. Normal inferior vena cava. Pericardium/Pleural No pericardial effusion. Medication 22 gauge I.V. with prn adaptor inserted into right arm. Diluted definity 2ml given slow IV push to enhance endocardial definition. Performed a rapid injection of agitated mix of 9 cc saline and 1cc air to assess for atrial septal defect. MMode/2D Measurements & Calculations LVIDd: 4.5 cm IVSd: 0.90 cm LVOT diam: 2.0 cm LVIDs: 3.0 cm LVPWd: 1.1 cm FS: 33.8 % LVOT area: 3.1 cm2 Ao root diam: 2.9 cm LAV(MOD-bp): 122.0 ml LVAd ap4: 24.4 cm2 LAV(MOD-bp) Indexed: 59.7 ml/m2 LVLd ap4: 6.8 cm LAV(MOD-sp2): 127.4 ml EDV(MOD-sp4): 75.2 ml LAV(MOD-sp4): 110.0 ml EDV(sp4-el): 74.7 ml LVAs ap4: 15.4 cm2 LVLs ap4: 6.0 cm ESV(MOD-sp4): 31.9 ml ESV(sp4-el): 33.2 ml EF(MOD-sp4): 57.6 % EF(sp4-el): 55.6 % SV(MOD-sp4): 43.3 ml SV(sp4-el): 41.6 ml LA A4 area: 31.3 cm2 LA dimension(2D): 5.1 cm RA A4 area: 48.2 cm2 Time Measurements MV dec time: 0.20 sec Doppler Measurements & Calculations MV E max deep: 104.9 cm/sec MV V2 max: 119.3 cm/sec MV dec slope: 517.6 cm/sec2 MV A max deep: 60.4 cm/sec MV max P.7 mmHg MV E/A: 1.7 MV V2 mean: 70.7 cm/sec MV mean P.3 mmHg MV V2 VTI: 28.6 cm MVA(VTI): 2.0 cm2 Ao V2 max: 236.8 cm/sec AI max deep: 439.9 cm/sec LV V1 max: 79.9 cm/sec Ao max P.4 mmHg AI max P.6 mmHg LV V1 max P.6 mmHg Ao V2 mean: 178.9 cm/sec AI dec slope: 279.7 cm/sec2 LV V1 mean P.5 mmHg Ao mean P.0 mmHg AI P1/2t: 460.6 msec LV V1 mean: 56.5 cm/sec Ao V2 VTI: 49.9 cm LV V1 VTI: 17.7 cm FINN(I,D): 1.1 cm2 FINN(V,D): 1.1 cm2 MR max deep: 594.5 cm/sec SV(LVOT): 55.8 ml TR max deep: 295.5 cm/sec MR max P.4 mmHg TR max P.9 mmHg ECHO/Echo Complete W/ Contrast Interpretation Summary Normal LV size. Left ventricular systolic function is lower limits of normal. ICD or pacer leads identified within the right ventricle. The left atrium is moderately enlarged. The right atrium is severely enlarged. Stage 2 diastolic dysfunction. Mild (1+) aortic valve insufficiency. Ordering Physician: Ingrid Lopez Referring Physician: Ingrid Lopez Performed By: Reyna Saleh RCS
== END | disposition home or self-care (01) ==
PROVIDERS: PCP Family Medicine; Referring Provider Physician Assistant Medical; Visit Provider Physician Assistant Medical
DX: I44.2 Atrioventricular block, complete (principal); R01.1 Cardiac murmur, unspecified
CPT/HCPCS: 93306; Q9957; A4216; C8929

== ENCOUNTER 2022-06-06 22:11 | Emergency (ER) | payer MEDICARE, OTHER, SELFPAY ==
[2019-12-31 09:04] VITALS: BMI 30.9
[2022-06-06 22:13] VITALS: BP 161/77; PULSE 73; RESP 16; TEMP 36.4; O2SAT 96; BMI 32.5
--- NOTE | 2022-06-06 22:17 | ED.RN ---
DR. JARVIS AT BEDSIDE ON TRIAGE.
--- NOTE | 2022-06-06 22:21 | ED.RN ---
PER DR. JARVIS AFTER EVALUATION AT BEDSIDE. NO STROKE ALERT.
--- NOTE | 2022-06-06 22:24 | EX.ED.DYSGE1 ---
HPI History of Present Illness Chief Complaint: Dizziness Informant: patient and EMS Narrative Narrative: 82-year-old female arriving to the emergency department via EMS for chief complaint of vomiting diarrhea lightheadedness. Patient states that she was feeling fine earlier in the day. She states that she took some of her medication including Eliquis and then drink the rest of her wine cooler that she was working on. She states she began to feel very woozy and had emesis diarrhea began to feel dizzy. She did not feel the room spinning. She states she does not have any pain. A few sentences later she states that maybe she is getting a headache but she is not sure. When asked to explain how she is currently feeling she states I do not know. When asked specific questions about why she called the ambulance she again reiterates that she does not know. Towards the end of the patient's ED stay I had a chance to visit with her some more. She tells me that things did not really sound good for dinner tonight and she had some peach pie which did not taste very good. He was shortly thereafter that she began to feel woozy and lightheaded. She states that then she got nauseous and had vomiting and then had diarrhea. Surround this time that she started sweating and that is when her friend called the ambulance. [facility] Medical History Asthma-COPD overlap syndrome Atherosclerosis of coronary artery of [place] heart without angina pectoris Bilateral renal artery stenosis Carotid bruit Chronic diastolic (congestive) heart failure Complete heart block COPD (chronic obstructive pulmonary disease) COVID-19 (~01/2022) Essential (primary) hypertension History of pulmonary embolism HLD (hyperlipidemia) Hypothyroidism Longstanding persistent atrial fibrillation Mild aortic stenosis Non-ischemic cardiomyopathy Nonrheumatic aortic (valve) stenosis Osteoarthritis SARS-CoV-2 positive Home Medications aspirin 81 mg tablet,delayed release 81 mg PO QHS afib 09/08/14 [History Last Taken 06/20/19] levothyroxine 100 mcg tablet 100 mcg PO QDAY thyroid 04/19/18 [History Last Taken Unknown] spacer #1 ea 11/24/19 [Rx Last Taken Unknown] albuterol sulfate 90 mcg/actuation aerosol inhaler 2 puff inhalation Q6H PRN shortness of breath or wheezing #8.5 grams 09/01/20 [Rx Last Taken Unknown] sertraline 50 mg tablet 50 mg PO DAILY #90 tabs 10/15/20 [Rx Last Taken Unknown] fluticasone propionate 250 mcg/actuation blister powder for inhalation (Flovent Diskus) 1 inh inhalation BID #3 device 03/15/21 [Rx Last Taken Unknown] atorvastatin 40 mg tablet 40 mg PO QHS cholesterol #90 tabs 08/16/21 [Rx Last Taken Unknown] metoprolol tartrate 25 mg tablet 12.5 mg PO BID #90 tabs 08/16/21 [Rx Last Taken Unknown] potassium chloride 20 mEq tablet,extended release 20 meq PO DAILY #90 tabs 08/16/21 [Rx Last Taken Unknown] triamcinolone acetonide 0.1 % topical cream 1 applic topical DAILY 08/16/21 [History Last Taken Unknown] calcium carb-vit [id number] 333 mg-200 unit-133 mg-5 mg tablet 1 tab PO DAILY 10/11/21 [History Last Taken Unknown] apixaban 5 mg tablet (Eliquis) 5 mg PO BID #180 tabs 11/04/21 [Rx Last Taken Unknown] allopurinol 100 mg tablet 200 mg PO DAILY PRN Rash 04/28/22 [History Last Taken Unknown] magnesium oxide 250 mg PO DAILY 04/28/22 [History Last Taken Unknown] torsemide 20 mg tablet 20 mg PO DAILY #90 tabs 05/03/22 [Rx Last Taken Unknown] ondansetron 4 mg disintegrating tablet 4 mg PO Q6H PRN PRN Nausea #15 tabs 06/07/22 [Rx Last Taken Unknown] Allergy/AdvReac Type Severity Reaction Status Date / Time No Known Allergies Allergy Verified 06/06/22 22:12 Family History Father Myocardial infarction Mother Cancer breast Sister Dementia Sister Colon cancer Surgical History H/O coronary artery bypass surgery (08/28/19) History of appendectomy History of arthroscopic knee surgery History of carpal tunnel release of both wrists History of coronary artery stent placement (07/23/09) History of left heart catheterization (06/20/19) History of open heart surgery (10/15/09) History of radiofrequency ablation procedure for cardiac arrhythmia (10/15/09) History of stent insertion of renal artery (03/22/11) Hx of atrioventricular node ablation (08/02/12) Presence of cardiac pacemaker (04/29/18) Social History Smoking Status: Former smoker Tobacco: How many years used: 20 how long ago did patient quit smokin, 1ppd second hand exposure: Yes alcohol intake: current alcohol intake frequency: holidays/special occasions only substance use type: does not use caffeine: Yes (occasional) Type: carbonated beverages and coffee ROS ROS ED Constitutional Constitutional ED: Denies chills or weight loss Eyes Eyes: Denies change in vision or diplopia ENT ENT ED: Denies ear pain, rhinorrhea or sore throat Cardiovascular Cardiovascular: Denies chest pain, orthopnea, palpitations or racing heartbeat Respiratory/Chest Respiratory/Chest: Denies cough, dyspnea or orthopnea Gastrointestinal Gastrointestinal: Reports diarrhea, nausea and vomiting; Denies abdominal pain Genitourinary Genitourinary ED: Denies dysuria, hematuria or urinary frequency Musculoskeletal Musculoskeletal: Denies arthralgias or myalgias Integumentary Denies abscess or rash Neurologic Neurologic: Reports other Details: Lightheadedness/dizziness ; Denies headache(s) or weakness Psychiatric Psychiatric: Denies anxiety, depression, suicidal ideation or suicidal thoughts Endocrine Endocrinology: Denies polydipsia, polyphagia or polyuria Allergic/Immunologic Allergic/Immunologic ED: Denies mouth swelling, tongue swelling or urticaria EXAM Physical Exam Const Vital Signs: 06/06/22 22:13 06/06/22 23:27 06/07/22 00:07 Temperature 97.5 F L Temperature Source Oral Pulse Rate 73 74 73 Respiratory Rate 16 16 16 Blood Pressure 161/77 H 179/86 H 173/83 H Blood Pressure Mean 105 117 113 Pulse Ox 96 98 95 Oxygen Delivery Method Room Air Room Air Room Air 06/07/22 00:39 Temperature Temperature Source Pulse Rate 73 Respiratory Rate 12 Blood Pressure 182/80 H Blood Pressure Mean 114 Pulse Ox 96 Oxygen Delivery Method Room Air Positive well nourished and well developed General Appearance ED: well developed HEENT Reports normocephalic, head/scalp atraumatic and moist mucous membranes Eyes PERRL and EOMs intact bilaterally Neck no lymphadenopathy, supple and no JVD Resp normal respiratory effort and clear to auscultation bilaterally Cardio regular rate, regular rhythm and no murmurs GI normal to inspection, nondistended, normoactive bowel sounds and non-tender Palpation: soft Back/Spine no CVA tenderness and normal ROM Extremity normal to inspection General Extremety ED: Negative for edema General Extremity: Negative for edema Neuro oriented x3 and CN's II-XII intact bilaterally Sensorium / Orientation: alert Motor Exam: strength 5/5 throughout Psych mental status grossly normal Mood & Affect: Negative for depressed or tearful Skin no rashes or lesions noted and no wounds MDM MDM MDM Narrative Medical decision making narrative: Basic blood work was fairly unremarkable glucose of 123 creatinine of 1 BUN of 21 white count 7.8 with hemoglobin to 0.8. See brain was normal. COVID test was normal urinalysis was normal. My interpretation of the chest x-ray is no acute process. Patient has been on a paced rhythm on the monitor. She states she is otherwise feeling back to her normal self at this time. She has no further nausea vomiting diarrhea sweating or lightheadedness. I will write for the patient have Zofran at home if need be. Follow-up with primary care return if worsening or concerns Lab Data Attestation: I reviewed the patient's lab results. Labs: Laboratory Results - last 24 hr 06/06/22 06/06/22 06/06/22 22:00 22:00 22:33 WBC 7.8 RBC 3.97 L Hgb 12.8 Hct 38.2 MCV 96.2 MCH 32.2 H MCHC 33.5 RDW Std Deviation 46.5 H RDW Coeff of Ivania 13.1 Plt Count 131 L MPV 10.9 Immature Gran % (Auto) 1.200 H Neut % (Auto) 41.9 L Lymph % (Auto) 38.7 Glenn % (Auto) 15.0 H Eos % (Auto) 2.7 Baso % (Auto) 0.5 Absolute Neuts (auto) 3.3 Absolute Lymphs (auto) 3.03 Nucleated RBC % 0 Sodium 139 Potassium 3.5 Chloride 106 Carbon Dioxide 26.0 Anion Gap 7 BUN 21 H Creatinine 1.04 H Estim Creat Clear Calc 39.72 Est GFR (MDRD) Af Amer 65 Est GFR (MDRD) Non-Af 54 L BUN/Creatinine Ratio 20.2 H Glucose 123 H Calcium 9.6 Total Bilirubin 0.50 AST 28 ALT 25 Alkaline Phosphatase 60 Troponin I High Sens 10 Total Protein 7.6 Albumin 4.0 Globulin 3.6 Albumin/Globulin Ratio 1.1 Lipase 263 Urine Color Urine Clarity Urine pH Ur Specific Constantine Urine Protein Urine Glucose (UA) Urine Ketones Urine Occult Blood Urine Nitrite Urine Bilirubin Urine Urobilinogen Ur Leukocyte Esterase Urine RBC Urine WBC Ur Squamous Epith Cells Urine Bacteria Urine Mucus Ethyl Alcohol < 3.0 06/06/22 23:15 WBC RBC Hgb Hct MCV MCH MCHC RDW Std Deviation RDW Coeff of Ivania Plt Count MPV Immature Gran % (Auto) Neut % (Auto) Lymph % (Auto) Glenn % (Auto) Eos % (Auto) Baso % (Auto) Absolute Neuts (auto) Absolute Lymphs (auto) Nucleated RBC % Sodium Potassium Chloride Carbon Dioxide Anion Gap BUN Creatinine Estim Creat Clear Calc Est GFR (MDRD) Af Amer Est GFR (MDRD) Non-Af BUN/Creatinine Ratio Glucose Calcium Total Bilirubin AST ALT Alkaline Phosphatase Troponin I High Sens Total Protein Albumin Globulin Albumin/Globulin Ratio Lipase Urine Color Yellow Urine Clarity Clear Urine pH 6.0 Ur Specific Constantine 1.020 Urine Protein 15 H Urine Glucose (UA) Normal Urine Ketones Negative Urine Occult Blood Negative Urine Nitrite Negative Urine Bilirubin Negative Urine Urobilinogen Normal Ur Leukocyte Esterase Negative Urine RBC 0 SEEN Urine WBC 0 SEEN Ur Squamous Epith Cells 0 SEEN Urine Bacteria RARE Urine Mucus 0 SEEN Ethyl Alcohol Radiography Diagnostic Testing: Clinical Impression(s) from Imaging Studies Brain CT 06/06/22 22:52 IMPRESSION: 1. No evidence of acute intracranial pathology. 2. Diffuse involutional changes and chronic ischemic small vessel white matter disease. Electronically Signed: Roger Ridley MD at 23:03 EDT , Chest X-Ray 06/06/22 22:55 IMPRESSION: No acute disease. Electronically Signed: Roger Ridley MD at 23:24 EDT , Discharge Plan Triage Chief Complaint: Dizziness ED Provider: Red Bolton Dx/Rx/DC Orders Clinical Impression: Vasovagal near syncope, Nausea vomiting and diarrhea, COPD (chronic obstructive pulmonary disease), Chronic diastolic (congestive) heart failure, Atherosclerosis of coronary artery of [place] heart without angina pectoris Instructions: ED Vomiting and Diarrhea ... Prescriptions: New ondansetron [ondansetron] 4 mg tablet,disintegrating 4 mg PO Q6H PRN PRN (Reason: Nausea) Qty: 15 0RF No Action levothyroxine 100 mcg tablet 100 mcg PO QDAY allopurinol 100 mg tablet 200 mg PO DAILY PRN (Reason: Rash) albuterol sulfate 90 mcg/actuation HFA aerosol inhaler 2 puff INHALATION Q6H PRN (Reason: shortness of breath or wheezing) Qty: 8.5 2RF sertraline 50 mg tablet 50 mg PO DAILY Qty: 90 3RF triamcinolone acetonide 0.1 % cream 1 applic topical DAILY atorvastatin 40 mg tablet 40 mg PO QHS Qty: 90 3RF Hold Instructions: hives Rx Instructions: 40 mg PO at bedtime potassium chloride 20 mEq tablet extended release 20 meq PO DAILY Qty: 90 3RF metoprolol tartrate 25 mg tablet 12.5 mg PO BID Qty: 90 3RF Rx Instructions: blood pressure magnesium oxide 250 mg magnesium tablet 250 mg PO DAILY aspirin 81 MG tablet 81 mg PO QHS (DME) spacer See Rx Instructions .ROUTE .MEDSUPPLY Qty: 1 0RF Rx Instructions: As directed Flovent Diskus 250 mcg/actuation blister with device 1 inh INHALATION BID Qty: 3 3RF calcium carb-D3-mag [id number]-[id number]-mg tablet 1 tab PO DAILY Rx Instructions: administer with a meal Eliquis 5 mg tablet 5 mg PO BID Qty: 180 3RF torsemide 20 mg tablet 20 mg PO DAILY Qty: 90 3RF Rx Instructions: CHF Primary Care Provider: Davis Lopez Referrals: Davis Lopez DO [Primary Care Provider] - As Needed Disposition Disposition: Home, Self Care
[2022-06-06] MEDS: Ondansetron 4 MG/2 ML Vial IV (22:30)
--- NOTE | 2022-06-06 22:52 | CT_ITS ---
EXAM: CT HEAD WITHOUT INTRAVENOUS CONTRAST CLINICAL INDICATION: dizziness TECHNIQUE: Multiple axial images were obtained of the head without intravenous contrast. CTDIvol = ( 44.99 ) mGy, DLP = ( 863.60 ) mGycm This CT exam was performed using one or more of the following dose reduction techniques: automated exposure control, adjustment of the mA and/or kV according to patient size, and/or use of iterative reconstruction technique. This report was created using [employer] report generation technology. COMPARISON: 10/17/2014 FINDINGS: BRAIN AND EXTRA-AXIAL SPACES: No acute intracranial hemorrhage, mass effect or edema. No evidence of acute cortical stroke. Periventricular small vessel ischemic change. No midline shift or hydrocephalus. Diffuse parenchymal atrophy. Posterior fossa structures are unremarkable. Basal cisterns are patent. BONES/JOINTS: Unremarkable. No discrete lytic or blastic abnormalities. VASCULATURE: Atherosclerotic calcifications of the carotid siphons and vertebrobasilar arteries. SINUSES: Unremarkable as visualized. Clear. MASTOID AIR CELLS: Visualized sinuses and mastoid air cells are clear. ORBITS: Visualized globes, extraocular muscles, optic nerves and retrobulbar fat appear unremarkable. CT/Brain/Head without Contrast IMPRESSION: 1. No evidence of acute intracranial pathology. 2. Diffuse involutional changes and chronic ischemic small vessel white matter disease. Electronically Signed: Roger Ridley MD at 23:03 EDT ,
--- NOTE | 2022-06-06 22:55 | RAD_ITS ---
EXAM: XR CHEST, 1 VIEW CLINICAL INDICATION: cad TECHNIQUE: Frontal view of the chest. This report was created using [employer] report generation technology. COMPARISON: 09/30/2019 FINDINGS: LUNGS AND PLEURAL SPACES: Unremarkable. No consolidation or edema. No pneumothorax. No effusion. HEART: Cardiomegaly and CABG postsurgical changes. MEDIASTINUM: Central airways and mediastinal contour are unremarkable. BONES/JOINTS: Degenerative changes of the spine and acromioclavicular joints. SOFT TISSUES: Unremarkable. VASCULATURE: Atherosclerotic calcifications of the nonenlarged thoracic aortic arch. TUBES, LINES AND DEVICES: Left-sided AICD/pacer with intact wires/leads. RAD/Chest 1 View (Portable) IMPRESSION: No acute disease. Electronically Signed: Roger Ridley MD at 23:24 EDT ,
[2022-06-06 23:06] LABS: Alcohol, Blood (Medical)-Serum < 3.0 mg/dL
[2022-06-06 23:18] LABS: Absolute Lymphocyte Count 3.03 X10^3/uL (0.83-4.51); Absolute Neutrophil Count 3.3 X10^3/uL (2.0-7.7); Basophil# 0.04 X10^3/uL; Basophil% 0.5 % (0-1); Eosinophil# 0.21 X10^3/uL; Eosinophils% 2.7 % (0-5); Hematocrit 38.2 % (37-47); Hemoglobin 12.8 g/dL (12.0-15.0); Lymphocyte # 3.03 X10^3/ul (0.83-4.51); Lymphocyte % 38.7 % (19-41); Mean Corp Hgb Conc 33.5 g/dL (32-36); Mean Corpuscular Hgb 32.2 pg (27.0-32.0); Mean Corpuscular Volume 96.2 fL (81-99); Mean Platelet Vol. 10.9 fl (6.2-12.0); Monocyte# 1.17 X10^3/uL; NRBC Flagged by Analyzer 0 % (0-5); Neutrophil # 3.28 X10^3/uL (2.7-7.7); Neutrophil % 41.9 % (47-70); Platelet Count 131 K/mm3 (150-450); RBC Distribution Width CV 13.1 % (11.6-14.6); RBC Distribution Width SD 46.5 fl (35.1-43.9); Red Blood Count 3.97 M/mm3 (4.2-5.4); White Blood Count 7.8 K/mm3 (4.4-11.0)
[2022-06-06 23:27] VITALS: BP 179/86; PULSE 74; RESP 16; O2SAT 98
[2022-06-06 23:28] LABS: Mucous, Urine 0 SEEN /hpf (<or=2+); Red Blood Cells-Urine 0 SEEN /hpf (0-5); Squamous Epithelial Cells - UA 0 SEEN /hpf (5-10); White Blood Cells 0 SEEN /hpf (0-5)
[2022-06-06 23:36] LABS: ALB/GLOB Ratio 1.1 RATIO (0.9-2.4); AST(SGOT) 28 U/L (15-37); Alanine Aminotransfer ALT/SGPT 25 U/L (13-56); Alkaline Phosphatase 60 U/L (45-117); Anion Gap 7 (5-15); BUN 21 mg/dL (7-18); BUN/Creat Ratio 20.2 RATIO (10-20); Calcium,Total 9.6 mg/dL (8.5-10.1); Chloride 106 mmol/L (98-107); Creatinine, Serum 1.04 mg/dL (0.55-1.02); EST Glomerular Filtration Rate 54 mL/min (>60); Est Glom Filt Rate - Afr Amer 65 mL/min (>60); Estimated Creatinine Clearance 39.72 ml/min; Globulin 3.6 g/dL (2.2-4.2); Glucose 123 mg/dL (74-106); Lipase 263 U/L (73-393); Potassium 3.5 mmol/L (3.5-5.1); Protein, Total 7.6 g/dL (6.4-8.2); Sodium Level 139 mmol/L (136-145); Troponin-I HS 10 pg/mL (3.0-54.0)
[2022-06-06 23:46] LABS: Color, Urine Yellow (Yellow); Glucose, Dipstick Normal (Normal); Ketone-Dipstick Negative (Negative); Leukocyte Esterase-Dipstick Negative /ul (Negative); Nitrite-Dipstick Negative (Negative); Occult Blood-Urine Negative /ul (Negative); Protein-Dipstick 15 mg/dl (Negative); Urine Bilirubin Dipstick Negative (Negative); Urine Clarity Clear (Clear); Urine Urobilinogen Normal (Normal)
[2022-06-06 23:55] LABS: Bacteria RARE /hpf (None Seen)
[2022-06-07 00:07] VITALS: BP 173/83; PULSE 73; RESP 16; O2SAT 95
[2022-06-07 00:39] VITALS: BP 182/80; PULSE 73; RESP 12; O2SAT 96
[2022-06-07 01:49] VITALS: BP 161/88; PULSE 71; RESP 18; O2SAT 96
[2022-06-07 05:01] VITALS: BP 129/76; PULSE 77; RESP 18; O2SAT 95
[2022-06-07] MEDS: Ondansetron ODT 4 MG Tablet PO (05:18)
[2022-06-07] MEDS: Meclizine HCl 25 MG Tablet PO (05:18)
--- NOTE | 2022-06-07 05:20 | ED.RN ---
pt was dc'd and awaiting a ride home. she attempted to use the restroom and became dizzy, diaphoretic, pale and nauseous. vs wnl. dr peter aware and entered new orders.
== END 2022-06-07 07:37 | disposition home or self-care (01) ==
PROVIDERS: Emergency Provider Emergency Medicine; PCP Family Medicine; Visit Provider Emergency Medicine
DX: R55 Syncope and collapse (principal); J44.9 Chronic obstructive pulmonary disease, unspecified; I11.0 Hypertensive heart disease with heart failure; I50.32 Chronic diastolic (congestive) heart failure; I48.19 Other persistent atrial fibrillation; R11.2 Nausea with vomiting, unspecified; R19.7 Diarrhea, unspecified; E78.5 Hyperlipidemia, unspecified; I25.10 Atherosclerotic heart disease of native coronary artery without angina pectoris; E03.9 Hypothyroidism, unspecified; Z87.891 Personal history of nicotine dependence; Z95.0 Presence of cardiac pacemaker; Z95.5 Presence of coronary angioplasty implant and graft; Z79.82 Long term (current) use of aspirin; Z79.899 Other long term (current) drug therapy
CPT/HCPCS: 70450; 71045; 80053; 81001; 82077; 83690; 84484; 85025; 87811; 96374; 99285; A4216; J2405

== ENCOUNTER → 2022-08-17 | Outpatient (CLI) | payer MEDICARE, OTHER, SELFPAY ==
[2019-12-31 09:04] VITALS: BMI 30.9
[2022-08-17 08:15] VITALS: PULSE 70; PULSE 74; PULSE 89; PULSE 90; PULSE 91; PULSE 92; O2SAT 96; O2SAT 97; O2SAT 98; O2SAT 99
--- NOTE | 2022-08-17 13:05 | PCM.PSN.6M ---
PSN 6 Minute Walk Test 6 Minute Walk Test 6 Minute Walk Test: 6 Minute Walk Test PSN:6-Minute Walk Test Start: 08/17/22 08:49 Freq: Status: Active Protocol: RESP.6MINW Document 08/17/22 08:15 [facility] (Rec: 08/17/22 08:55 [facility] [id number]) 6 Minute Walk Test Date Performed 08/17/22 Time Performed 08:15 Height 5 ft 8 in Weight: 200 lb Weight in Pounds 200.[address]: Apurva Bran Assistive device used: None Pre-test Oxygen Delivery Method Room Air Pulse Ox (%) 98 Pulse Rate (60-100 beats/min) 70 Dyspnea Jaspal Scale (0-10) 0 Exertion Jaspal Scale (6-20) 6 1st minute Oxygen Delivery Method Room Air Pulse Ox (%) 96 Pulse Rate (60-100 beats/min) 89 2nd minute Oxygen Delivery Method Room Air Pulse Ox (%) 98 Pulse Rate (60-100 beats/min) 89 3rd minute Oxygen Delivery Method Room Air Pulse Ox (%) 98 Pulse Rate (60-100 beats/min) 92 4th minute Oxygen Delivery Method Room Air Pulse Ox (%) 97 Pulse Rate (60-100 beats/min) 91 5th minute Oxygen Delivery Method Room Air Pulse Ox (%) 99 Pulse Rate (60-100 beats/min) 90 6th minute Oxygen Delivery Method Room Air Pulse Ox (%) 98 Pulse Rate (60-100 beats/min) 92 Dyspnea Jaspal Scale (0-10) 0.5 Exertion Jaspal Scale (6-20) 11 Post-test Oxygen Delivery Method Room Air Pulse Ox (%) 98 Pulse Rate (60-100 beats/min) 74 Full Laps Walked 16 Partial Lap, Number of Tiles Walked 8 Total Distance Walked (ft) 952 Interpretation Interpretation: The patient ambulated 952 feet over the course of 6 minutes beginning on room air without assistive devices. Pretesting oxygen saturation was noted to be 98% on room air. With ambulation, the rose oxygen saturation was 96%. There was no significant exertional oxygen desaturation. Recommendations Recommendations: There is no indication for the use of supplemental oxygen at this time.
== END | disposition home or self-care (01) ==
LOC: PSN 08:02
PROVIDERS: PCP Family Medicine; Referring Provider Nurse Practitioner Acute Care; Visit Provider Nurse Practitioner Acute Care
DX: J44.9 Chronic obstructive pulmonary disease, unspecified (principal)
CPT/HCPCS: 94618

== ENCOUNTER → 2022-08-23 | Outpatient (CLI) | payer MEDICARE, OTHER, SELFPAY ==
[2019-12-31 09:04] VITALS: BMI 30.9
--- NOTE | 2022-08-23 17:19 | PFTCOMP ---
COMPLETE PULMONARY FUNCTION TEST INTERPRETATION Brief HPI: Patient is an 82-year-old female, currently under the care of Zeina Bran, who presents to [facility] [place] for complete pulmonary function tests secondary to diagnosis of COPD. Respiratory therapist reports good effort and reproducible results. Interpretation: Forced expiration spirometry shows a mild large airways obstructive ventilatory defect with an FEV1 of 75% predicted. There is a significant bronchodilator response in FVC and FEV1 by strict ATS criteria. Spirograms are of good quality and plateau slowly, indicating slowly emptying areas of the lungs. The respiratory flow volume loop shows decreased expiratory flow rates at all lung volumes consistent with airway obstruction. Lung volumes by body plethysmography show a normal total lung capacity at 4.79 L, 87% predicted. All other lung volumes are within normal limits. Diffusion capacity by carbon monoxide is normal at 78% predicted. The airway resistance is elevated. Compared to previous pulmonary function tests from 08/24/2020, there is been a significant reduction in FVC, FEV1 and TLC. Impression: Partially reversible mild large airways obstructive ventilatory defect with relatively preserved diffusion capacity and lung volumes
== END | disposition home or self-care (01) ==
LOC: PSN 09:18
PROVIDERS: PCP Family Medicine; Referring Provider Nurse Practitioner Acute Care; Visit Provider Nurse Practitioner Acute Care
DX: J44.9 Chronic obstructive pulmonary disease, unspecified (principal)
CPT/HCPCS: 94060; 94726; 94729

== ENCOUNTER → 2022-09-20 | Outpatient (CLI) | payer MEDICARE, OTHER, SELFPAY ==
[2019-12-31 09:04] VITALS: BMI 30.9
[2022-09-20 13:09] LABS: AST(SGOT) 29 U/L (15-37); Alanine Aminotransfer ALT/SGPT 28 U/L (13-56); Albumin, Serum 3.8 g/dL (3.2-5.0); Alkaline Phosphatase 59 U/L (45-117); Bilirubin, Direct 0.21 mg/dL (0.00-0.30); Cholesterol 131 mg/dL (200); Globulin 3.4 g/dL (2.2-4.2); High Density Lipoprotein 40 mg/dL; Protein, Total 7.2 g/dL (6.4-8.2); Triglycerides 139 mg/dL; Very Low Density Lipoprotein 28 mg/dL (5-40)
== END | disposition home or self-care (01) ==
LOC: MTLAB 09:13
PROVIDERS: PCP Family Medicine; Referring Provider Nurse Practitioner Gerontology; Visit Provider Nurse Practitioner Gerontology
DX: E78.00 Pure hypercholesterolemia, unspecified (principal)
CPT/HCPCS: 36415; 80061; 80076

== ENCOUNTER → 2023-03-20 | Outpatient (CLI) | payer MEDICARE, OTHER, SELFPAY ==
[2019-12-31 09:04] VITALS: BMI 30.9
--- NOTE | 2023-03-20 10:00 | BI_ITS ---
MAMMOGRAPHY - BILATERAL SCREENING REASON FOR EXAM: Female, 82 years old. Routine annual screening examination. PERTINENT HISTORY: Mother with breast cancer. TECHNIQUE: Digital bilateral breast aleah (3D mammographic acquisition) in the CC and MLO projections. 2-D mediolateral oblique (MLO) and craniocaudad (CC) views of both breasts were obtained. CAD: Full Field Digital Mammography with Computer Added Detection was performed. COMPARISON: Mammogram from 03/15/2022, 03/14/2012. FINDINGS: Breast Composition: The breasts are heterogeneously dense, which may obscure small masses. There are no dominant masses or suspicious calcifications. Stable partially visualized cardiac device in the left axilla. Stable scattered benign-appearing bilateral breast calcifications. No other significant abnormalities are identified. There has been no significant change since the prior study. BI/SCRN MAMM (CAD)W/ALEAH BILAT IMPRESSION: Stable bilateral screening mammogram. Yearly follow-up mammogram recommended. (A) ASSESSMENT CATEGORY: BIRADS Category 2: Benign. A letter regarding these results will be sent to the patient by the facility within 30 days. Approximately 10% of breast cancers are not detected by mammography. A normal mammogram should not delay biopsy of a clinically suspicious abnormality. Electronically Signed: Jason Robb MD at 15:09 EDT ,
== END | disposition home or self-care (01) ==
LOC: OPBI 09:56
PROVIDERS: PCP Family Medicine; Referring Provider Family Medicine; Visit Provider Family Medicine
DX: Z12.31 Encounter for screening mammogram for malignant neoplasm of breast (principal)
CPT/HCPCS: 77063; 77067

== ENCOUNTER 2023-04-06 08:36 | Emergency (ER) | payer MEDICARE, OTHER, SELFPAY ==
[2019-12-31 09:04] VITALS: BMI 30.9
[2023-04-06 08:38] VITALS: BP 169/83; PULSE 70; RESP 14; TEMP 36.1; O2SAT 100; BMI 29.1
--- NOTE | 2023-04-06 08:59 | RAD_ITS ---
STUDY: X-RAY - LEFT WRIST REASON FOR EXAM: Female, 82 years old. Injury TECHNIQUE: 3 view(s) of the wrist were obtained. COMPARISON: Comparison is made with prior study dated December 29, 2018. FINDINGS: Deformity of the distal radius with healed fracture. Old avulsion fracture of the ulnar styloid. Normal radiocarpal articulation. Normal distal radioulnar articulation. Normal carpal bones. Increased distance between the scaphoid and lunate bones. Ligamentous injury should be ruled out. There is degenerative arthrosis of the carpometacarpal articulation of the thumb. Normal second through fifth carpometacarpal articulations. Normal visualized metacarpal bones. Soft tissue swelling. RAD/Wrist min 3 Views IMPRESSION: Healed fracture of the distal radius and ulna was a fracture of the ulnar styloid. Increased distance between the scaphoid and lunate bone in keeping with possible ligamentous injury. Electronically Signed: Cyril Oneil MD at 9:41 EDT ,
--- NOTE | 2023-04-06 08:59 | RAD_ITS ---
STUDY: X-RAY - PELVIS AND LEFT HIP REASON FOR EXAM: Female, 82 years old. Injury/fall TECHNIQUE: 3 views of the pelvis and hip. COMPARISON: Comparison is made with prior study December 29, 2018. FINDINGS: There is a non-specific bowel gas pattern. Normal visualized soft tissue structures. Normal bilateral iliac wings, sacroiliac joints and visualized sacrum. Healed left superior and inferior pubic rami fractures. There are degenerative changes of the pubic symphysis with articular narrowing and sclerosis. Normal bilateral ischial tuberosities. Normal visualized femoral head. Normal acetabulum. There is mild articular joint space narrowing of the hip. Status post right total hip replacement. RAD/HIP, UNI W/ Pelvis 2-3 Views IMPRESSION: No acute abnormality is seen. Healed left superior and inferior pubic rami fractures. Electronically Signed: Cyril Oneil MD at 9:37 EDT ,
--- NOTE | 2023-04-06 08:59 | RAD_ITS ---
STUDY: X-RAY - LEFT HAND REASON FOR EXAM: Female, 82 years old. Pain following injury. TECHNIQUE: 3 view(s) of the hand. COMPARISON: Comparison is made with prior study dated January 30, 2014. FINDINGS: Normal radiocarpal articulation. Normal distal radioulnar joint. Healed fracture of the distal radial metaphysis. Normal visualized carpal bones. Normal carpal articulations There is degenerative arthrosis of the carpometacarpal (CMC) articulation of the thumb. Normal second through fifth carpometacarpal joints. Normal metacarpi. Normal metacarpophalangeal joint of the thumb. Normal interphalangeal joint of the thumb. Normal proximal and distal phalanges of the thumb. Normal metacarpophalangeal joints of the second through fifth fingers. There is diffuse articular joint space narrowing of the proximal and distal interphalangeal joints of the second through fifth fingers, but without erosive changes or periarticular soft tissue swelling. Normal phalanges of the second through fifth fingers. Soft tissue swelling. RAD/Hand Min 3 Views IMPRESSION: Degenerative changes. No fracture is seen. Electronically Signed: Cyril Oneil MD at 9:39 EDT ,
--- NOTE | 2023-04-06 08:59 | RAD_ITS ---
STUDY: X-RAY - UNILATERAL RIBS ( LEFT ) WITH CHEST REASON FOR EXAM: Female, 82 years old. Injury/fall TECHNIQUE - RIBS: 4 view(s) of the ribs. TECHNIQUE - CHEST: Single PA view of the chest. COMPARISON: Comparison is made with prior study dated June 06, 2022. FINDINGS - RIBS: Normal visualized ribs without a demonstrated fracture. FINDINGS - CHEST: The lungs are clear and expanded. There is no demonstrated pleural abnormality. Sternal cerclage wires and vascular clips are present from a prior sternotomy and coronary artery bypass graft procedure (CABG). A left-sided dual-chamber pacemaker is seen. Cardiomegaly. Normal mediastinum and linda. Normal visualized pulmonary arteries. There is atherosclerotic tortuosity of the aortic arch and descending thoracic aorta. There are degenerative changes of the visualized thoracic spine. Normal visualized ribs, clavicles, and shoulders. There is no demonstrated abnormality of the visualized soft tissue structures of the upper abdomen. RAD/Ribs Uni Min 3V w/PA Chest IMPRESSION: RIBS: Normal x-ray examination of the ribs. CHEST: Normal x-ray examination of the chest. Electronically Signed: Cyril Oneil MD at 9:35 EDT ,
--- NOTE | 2023-04-06 09:00 | ED.VIS.FALL ---
HPI HPI - Fall History of Present Illness Chief Complaint: Fall Informant: patient Occured/Mechanism Occurred: Yesterday Mechanism/Context: Yes trip Narrative: Accidentally tripped over a hose falling to cement, injuring left-side Usually ambulates: Without assistance Pain/Injury Location: Left hand, wrist, ribs, hip Associated Symptoms Associated Symptoms: Negative for Inability to ambulate or Loss of consciousness Narrative Narrative: Patient tripped and fell last night. She is anticoagulated on Eliquis for atrial fibrillation. She did not hit her head, she denies having a headache, nausea, vomiting, vision changes, or other focal neurologic symptoms. No neck or back pain. It hurts to breathe but she is not dyspnea, with regards to the left anterior lateral rib cage, mostly around the breast area. Hurts to move her wrist, pain more so in the ulnar aspect of the hand. 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 History of pulmonary embolism HLD (hyperlipidemia) Hypothyroidism Longstanding persistent atrial fibrillation Mild aortic stenosis Non-ischemic cardiomyopathy Nonrheumatic aortic (valve) stenosis Osteoarthritis SARS-CoV-2 positive Home Medications aspirin 81 mg tablet,delayed release 81 mg PO QHS afib 09/08/14 [History Last Taken 06/20/19] levothyroxine 100 mcg tablet 100 mcg PO QDAY thyroid 04/19/18 [History Last Taken Unknown] spacer #1 ea 11/24/19 [Rx Last Taken Unknown] albuterol sulfate 90 mcg/actuation aerosol inhaler 2 puff inhalation Q6H PRN shortness of breath or wheezing #8.5 grams 09/01/20 [Rx Last Taken Unknown] sertraline 50 mg tablet 50 mg PO DAILY #90 tabs 10/15/20 [Rx Last Taken Unknown] calcium carb-vit [id number] 333 mg-200 unit-133 mg-5 mg tablet 1 tab PO DAILY 10/11/21 [History Last Taken Unknown] allopurinol 100 mg tablet 200 mg PO DAILY PRN Rash 04/28/22 [History Last Taken Unknown] magnesium oxide 250 mg PO DAILY 04/28/22 [History Last Taken Unknown] metoprolol tartrate 25 mg tablet 12.5 mg PO BID #90 tabs 09/13/22 [Rx Last Taken Unknown] torsemide 20 mg tablet 20 mg PO DAILY #90 tabs 09/13/22 [Rx Last Taken Unknown] fluticasone propionate 250 mcg/actuation blister powder for inhalation (Flovent Diskus) 1 inh inhalation BID #3 device 09/14/22 [Rx Last Taken Unknown] triamcinolone acetonide 0.1 % topical cream 1 applic topical DAILY PRN 09/19/22 [History Last Taken Unknown] apixaban 5 mg tablet (Eliquis) 5 mg PO BID #180 tabs 11/13/22 [Rx Last Taken Unknown] atorvastatin 40 mg tablet 40 mg PO QHS cholesterol #90 tabs 11/13/22 [Rx Last Taken Unknown] potassium chloride 20 mEq tablet,extended release 20 meq PO DAILY #90 tabs 03/09/23 [Rx Last Taken Unknown] Allergy/AdvReac Type Severity Reaction Status Date / Time No Known Allergies Allergy Verified 04/06/23 08:38 Family History Father Myocardial infarction Mother Cancer breast Sister Dementia Sister Colon cancer Surgical History H/O coronary artery bypass surgery (08/28/19) History of appendectomy History of arthroscopic knee surgery History of carpal tunnel release of both wrists History of coronary artery stent placement (07/23/09) History of left heart catheterization (06/20/19) History of open heart surgery (10/15/09) History of radiofrequency ablation procedure for cardiac arrhythmia (10/15/09) History of stent insertion of renal artery (03/22/11) Hx of atrioventricular node ablation (08/02/12) Presence of cardiac pacemaker (04/29/18) Social History Smoking Status: Former smoker Tobacco: How many years used: 20 how long ago did patient quit smokin, 1ppd second hand exposure: Yes alcohol intake: current alcohol intake frequency: holidays/special occasions only substance use type: does not use caffeine: Yes (occasional) Type: carbonated beverages and coffee ROS ROS ED Constitutional Constitutional ED: Denies chills or fever(s) Eyes Eyes: Denies change in vision or diplopia ENT ENT ED: Denies ear pain, epistaxis, facial pain or rhinorrhea Cardiovascular Cardiovascular: Reports as per HPI and chest pain; Denies palpitations Respiratory/Chest Respiratory/Chest: Denies cough or dyspnea Gastrointestinal Gastrointestinal: Denies abdominal pain, diarrhea, melena, nausea or vomiting Genitourinary Genitourinary ED: Denies dysuria or hematuria Musculoskeletal Musculoskeletal: Reports extremity pain; Denies back pain or neck pain Integumentary Reports Abrasions; Denies abscess, laceration or rash Neurologic Neurologic: Denies confusion, headache(s), paresthesias or weakness EXAM Physical Exam Const Vital Signs: 04/06/23 08:38 04/06/23 09:06 Temperature 97 F L Temperature Source Temporal Pulse Rate 70 Respiratory Rate 14 Respiratory Effort Short of Breath Respiratory Depth Normal Respiratory Pattern Normal Blood Pressure 169/83 H Blood Pressure Mean 111 Pulse Ox 100 Oxygen Delivery Method Room Air Positive well nourished and well developed General Appearance ED: well developed and NAD HEENT Reports nasal mucous membranes and turbinates normal atraumatic Face and Sinus: Negative for facial tenderness Eyes PERRL and EOMs intact bilaterally Visual Acuity: other Other Details: no entrapment or pain with extraocular movements Neck full ROM and supple General: Negative for tenderness Chest Wall inspection of chest normal Chest Narrative: Tender left anterior and anterolateral upper/mid chest wall without crepitance or flail, no costal margin tenderness or abdominal tenderness, no sternal tenderness, nothing tender posteriorly. No deformities. Chest: symmetrical chest wall rise and tenderness; Negative for crepitus Resp normal respiratory effort and clear to auscultation bilaterally Resp Narrative: Equal breath sounds bilaterally Cardio Cardio Narrative: Crescendo-decrescendo 3/6 systolic murmur Rate: regular rate Rhythm: regular rhythm GI normal to inspection, nondistended, normoactive bowel sounds, soft to palpation and non-tender Back/Spine normal ROM Cervical Spine: Negative for cervical spine tenderness Thoracic Spine / Upper Back: Negative for thoracic spinal tenderness Lumbar Spine / Lower Back: Negative for lumbar spinal tenderness Extremity normal to inspection and full ROM Extremity Narrative: Tender at the left fifth metacarpal and MCP J, as well as the carpus. Swelling there limited range of motion of the left wrist due to pain but able, no gross deformity. Mild tenderness distal radius. No other extremity tenderness throughout the upper extremities. Mild tenderness to the left greater trochanter, but no pain in the groin or any pain in the hip girdle with bearing weight on it and she can walk normally. Full range of motion throughout lower extremity joints. General Extremety ED: Yes tenderness Neuro oriented x3, CN's II-XII intact bilaterally, moves all extremities, no focal motor deficits and no sensory deficits noted [place] Coma Scale: document GCS findings Spontaneous Obeys Commands Oriented 15 Sensorium / Orientation: awake and alert Psych mental status grossly normal and thought process normal Skin Skin Narrative: Scabbed nonbleeding abrasions on the ulnar aspect of the left hand, no lacerations to repair. Lesions: no lesions Rashes: no rashes MDM MDM MDM Narrative Medical decision making narrative: X-rays were obtained and interpreted by myself as follows: Left wrist 3 views, scapholunate dissociation but no other acute fracture; chronic changes noted Left hand 3 views no acute fracture or dislocation Left hip 3 views no acute fractures Left ribs with PA chest 5 views total no acute fractures or pneumothorax I reviewed the radiology interpretations which are basically in agreement. I placed her in a splint and she will follow-up with orthopedics, she is comfortable with that plan. I am at a very low suspicion of an occult hip fracture here, she does not have any hip joint pain when bearing weight and simply is tender at the greater trochanter consistent with more of acute hip contusion. Discussed with orthopedics Dr. Eli, who recommends referral to hand. Radiography Diagnostic Testing: Clinical Impression(s) from Imaging Studies Hand X-Ray 04/06/23 08:59 IMPRESSION: Degenerative changes. No fracture is seen. Electronically Signed: Cyril Oneil MD at 9:39 EDT , Hip/Pelvis X-Ray 04/06/23 08:59 IMPRESSION: No acute abnormality is seen. Healed left superior and inferior pubic rami fractures. Electronically Signed: Cyril Oneil MD at 9:37 EDT , Ribs w/Chest X-Ray 04/06/23 08:59 IMPRESSION: RIBS: Normal x-ray examination of the ribs. CHEST: Normal x-ray examination of the chest. Electronically Signed: Cyril Oneil MD at 9:35 EDT , Wrist X-Ray 04/06/23 08:59 IMPRESSION: Healed fracture of the distal radius and ulna was a fracture of the ulnar styloid. Increased distance between the scaphoid and lunate bone in keeping with possible ligamentous injury. Electronically Signed: Cyril Oneil MD at 9:41 EDT , Management Discussion w/another healthcare provider: [employer] (Orthopedics) Procedures Upper Extremity Splints Upper Extremity Splint: Orthoglass and Volar (Short arm) Splint Fabrication: Fabricated (Neurovascularly intact distally after placement) Location: Left Discharge Plan Triage Chief Complaint: Fall ED Provider: Tyler Ann Dx/Rx/DC Orders Clinical Impression: Scapholunate dissociation of left wrist, Abrasion of left hand, Contusion of left hand, Contusion of hip, left Instructions: Bone Contusion, ED Fracture, Wrist, General Prescriptions: No Action levothyroxine 100 mcg tablet 100 mcg PO QDAY allopurinol 100 mg tablet 200 mg PO DAILY PRN (Reason: Rash) albuterol sulfate 90 mcg/actuation HFA aerosol inhaler 2 puff INHALATION Q6H PRN (Reason: shortness of breath or wheezing) Qty: 8.5 2RF sertraline 50 mg tablet 50 mg PO DAILY Qty: 90 3RF triamcinolone acetonide 0.1 % cream 1 applic topical DAILY PRN magnesium oxide 250 mg magnesium tablet 250 mg PO DAILY aspirin 81 MG tablet 81 mg PO QHS (DME) spacer See Rx Instructions .ROUTE .MEDSUPPLY Qty: 1 0RF Rx Instructions: As directed calcium carb-D3-mag [id number] [id number]-[id number]-mg tablet 1 tab PO DAILY Rx Instructions: administer with a meal metoprolol tartrate 25 mg tablet 12.5 mg PO BID Qty: 90 3RF Rx Instructions: blood pressure torsemide 20 mg tablet 20 mg PO DAILY Qty: 90 3RF Rx Instructions: CHF Flovent Diskus 250 mcg/actuation blister with device 1 inh INHALATION BID Qty: 3 3RF atorvastatin 40 mg tablet 40 mg PO QHS Qty: 90 3RF Hold Instructions: hives Rx Instructions: 40 mg PO at bedtime Eliquis 5 mg tablet 5 mg PO BID Qty: 180 3RF potassium chloride 20 mEq tablet extended release 20 meq PO DAILY Qty: 90 3RF Primary Care Provider: Davis Lopez Referrals: [facility] [Outside] - As soon as possible (Asked to make an appointment with the first available at [facility]) Disposition Disposition: Home, Self Care
== END 2023-04-06 13:58 | disposition home or self-care (01) ==
PROVIDERS: Emergency Provider Emergency Medicine; PCP Family Medicine; Visit Provider Emergency Medicine
DX: S60.512A Abrasion of left hand, initial encounter (principal); I50.32 Chronic diastolic (congestive) heart failure; I48.11 Longstanding persistent atrial fibrillation; S60.222A Contusion of left hand, initial encounter; S70.02XA Contusion of left hip, initial encounter; I25.10 Atherosclerotic heart disease of native coronary artery without angina pectoris; Z86.16 Personal history of COVID-19; Z95.1 Presence of aortocoronary bypass graft; Z95.5 Presence of coronary angioplasty implant and graft; Z95.0 Presence of cardiac pacemaker; W01.0XXA Fall on same level from slipping, tripping and stumbling without subsequent striking against object, initial encounter; Z79.01 Long term (current) use of anticoagulants; Z87.891 Personal history of nicotine dependence
CPT/HCPCS: 71101; 73110; 73130; 73502; 99282

== ENCOUNTER → 2023-08-15 | Outpatient (CLI) | payer MEDICARE, OTHER, SELFPAY ==
[2019-12-31 09:04] VITALS: BMI 30.9
[2023-08-15 10:23] LABS: Absolute Lymphocyte Count 1.32 X10^3/uL (0.83-4.51); Absolute Neutrophil Count 2.7 X10^3/uL (2.0-7.7); Basophil# 0.04 X10^3/uL; Basophil% 0.8 % (0-1); Eosinophil# 0.13 X10^3/uL; Eosinophils% 2.7 % (0-5); Hematocrit 39.8 % (37-47); Hemoglobin 12.3 g/dL (12.0-15.0); Lymphocyte # 1.32 X10^3/ul (0.83-4.51); Lymphocyte % 27.3 % (19-41); Mean Corp Hgb Conc 30.9 g/dL (32-36); Mean Corpuscular Hgb 31.1 pg (27.0-32.0); Mean Corpuscular Volume 100.5 fL (81-99); Mean Platelet Vol. 11.2 fl (6.2-12.0); Monocyte# 0.66 X10^3/uL; Monocyte% 13.6 % (0-10); NRBC Flagged by Analyzer 0 % (0-5); Neutrophil # 2.66 X10^3/uL (2.7-7.7); POSITIVE COUNT YES; Platelet Count 92 K/mm3 (150-450); RBC Distribution Width CV 14.1 % (11.6-14.6); RBC Distribution Width SD 51.6 fl (35.1-43.9); Red Blood Count 3.96 M/mm3 (4.2-5.4); White Blood Count 4.8 K/mm3 (4.4-11.0)
[2023-08-15 10:28] LABS: Differential Indicated SCAN CRITERIA MET
[2023-08-15 10:43] LABS: BNP,B-Type NATRIURETIC PEPTIDE 273.9 pg/mL (0-100)
[2023-08-15 11:06] LABS: Platelet Estimate MOD DEC (ADEQ)
[2023-08-15 11:13] LABS: AST(SGOT) 21 U/L (15-37); Alanine Aminotransfer ALT/SGPT 20 U/L (13-56); Albumin, Serum 3.8 g/dL (3.2-5.0); Alkaline Phosphatase 64 U/L (45-117); Anion Gap 4 (5-15); BUN 16 mg/dL (7-18); BUN/Creat Ratio 16.4 RATIO (10-20); Bilirubin, Direct 0.27 mg/dL (0.00-0.30); Calcium,Total 9.1 mg/dL (8.5-10.1); Chloride 108 mmol/L (98-107); Cholesterol 107 mg/dL (200); Creatinine, Serum 0.98 mg/dL (0.55-1.02); EST Glomerular Filtration Rate 58 mL/min (>60); Est Glom Filt Rate - Afr Amer 70 mL/min (>60); Free T3 1.8 pg/mL (2.18-3.98); Globulin 4.1 g/dL (2.2-4.2); Glucose 107 mg/dL (74-106); High Density Lipoprotein 40 mg/dL; Potassium 4.1 mmol/L (3.5-5.1); Protein, Total 7.9 g/dL (6.4-8.2); Sodium Level 139 mmol/L (136-145); T4 Free Direct 0.99 ng/dL (0.76-1.46); Thyroid Stim Hormone (TSH) 9.42 uIU/mL (0.358-3.74); Triglycerides 105 mg/dL; Very Low Density Lipoprotein 21 mg/dL (5-40)
[2023-08-17 12:09] LABS: Vitamin D 1,25-Dihydroxy 48.1 pg/mL (24.8-81.5)
== END | disposition home or self-care (01) ==
LOC: MTLAB 09:05
PROVIDERS: PCP Family Medicine; Referring Provider Nurse Practitioner Gerontology; Visit Provider Nurse Practitioner Gerontology
DX: R06.09 Other forms of dyspnea (principal); E55.9 Vitamin D deficiency, unspecified; R53.83 Other fatigue; E78.00 Pure hypercholesterolemia, unspecified
CPT/HCPCS: 36415; 80048; 80061; 80076; 82652; 83880; 84439; 84443; 84481; 85025

== ENCOUNTER 2023-08-21 13:00 | Outpatient (RCR) | payer MEDICARE, OTHER, SELFPAY ==
[2019-12-31 09:04] VITALS: BMI 30.9
[2023-08-07 09:10] VITALS: BP 146/65; PULSE 69; RESP 18; TEMP 36.2; BMI 28.4
--- NOTE | 2023-08-07 10:11 | PCM.WC.HP ---
History of Present Illness Date of Service: 08/07/23 Chief Complaint: Bilateral lower extremity venous stasis dermatitis with excoriations History of Wound: This is an 83-year-old female with a longstanding history of chronic venous disease. She presented with venous stasis dermatitis in the gaiter areas bilaterally. She has suffered from these manifestations for many years. She denies significant swelling in her lower extremities. She has been using Silvadene topically recently, though has used a variety of topical ointments. She is active and ambulatory. She ambulates without limitation. She denies symptoms to suggest intermittent claudication. She denies a history of thrombophlebitis. She sleeps on a flat mattress at night. A venous duplex examination was performed on May 04, 2022, revealing incompetence of the right great saphenous vein, right small saphenous vein, right accessory saphenous vein and an incompetent right file conversion operator vein. Incompetence was also noted in the left great saphenous vein, right small saphenous vein, and right accessory saphenous vein x2. A noninvasive lower extremity arterial study performed on May 04, 2022, revealed normal flow at ankle level bilaterally, and at digital level on the right, with mild arterial occlusive disease at digital level on the left. 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 History of pulmonary embolism History of stent insertion of renal artery HLD (hyperlipidemia) Hypothyroidism Longstanding persistent atrial fibrillation Mild aortic stenosis Non-ischemic cardiomyopathy Nonrheumatic aortic (valve) stenosis Osteoarthritis Osteoarthritis Rheumatoid arthritis SARS-CoV-2 positive Venous stasis dermatitis Home Medications aspirin 81 mg tablet,delayed release 81 mg PO QHS afib 09/08/14 [History Last Taken 06/20/19] levothyroxine 100 mcg tablet 100 mcg PO QDAY thyroid 04/19/18 [History Last Taken Unknown] spacer #1 ea 11/24/19 [Rx Last Taken Unknown] albuterol sulfate 90 mcg/actuation aerosol inhaler 2 puff inhalation Q6H PRN shortness of breath or wheezing #8.5 grams 09/01/20 [Rx Last Taken Unknown] sertraline 50 mg tablet 50 mg PO DAILY #90 tabs 10/15/20 [Rx Last Taken Unknown] calcium carb-vit [id number] 333 mg-200 unit-133 mg-5 mg tablet 1 tab PO DAILY 10/11/21 [History Last Taken Unknown] metoprolol tartrate 25 mg tablet 12.5 mg (1/2 x 25 mg) PO BID #90 tabs 09/13/22 [Rx Last Taken Unknown] torsemide 20 mg tablet 20 mg PO DAILY #90 tabs 09/13/22 [Rx Last Taken Unknown] fluticasone propionate 250 mcg/actuation blister powder for inhalation (Flovent Diskus) 1 inh inhalation BID #3 device 09/14/22 [Rx Last Taken Unknown] apixaban 5 mg tablet (Eliquis) 5 mg PO BID #180 tabs 11/13/22 [Rx Last Taken Unknown] atorvastatin 40 mg tablet 40 mg PO QHS cholesterol #90 tabs 11/13/22 [Rx Last Taken Unknown] potassium chloride 20 mEq tablet,extended release 20 meq PO DAILY #90 tabs 03/09/23 [Rx Last Taken Unknown] Allergy/AdvReac Type Severity Reaction Status Date / Time No Known Allergies Allergy Verified 08/07/23 09:30 Family History Father Myocardial infarction Mother Cancer breast Sister Dementia Sister Colon cancer Surgical History H/O coronary artery bypass surgery (08/28/19) History of appendectomy History of arthroscopic knee surgery History of carpal tunnel release of both wrists History of carpal tunnel surgery of left wrist History of coronary artery stent placement (07/23/09) History of left heart catheterization (06/20/19) History of open heart surgery (10/15/09) History of radiofrequency ablation procedure for cardiac arrhythmia (10/15/09) History of right hip replacement History of stent insertion of renal artery (03/22/11) Hx of atrioventricular node ablation (10/05/12) Presence of cardiac pacemaker (04/29/18) Social History Smoking Status: Former smoker Tobacco: How many years used: 20 how long ago did patient quit smokin, 1ppd second hand exposure: Yes alcohol intake: current alcohol intake frequency: holidays/special occasions only substance use type: does not use caffeine: Yes (occasional) Type: carbonated beverages and coffee Vital Signs Vital Signs Vital Signs: 08/07/23 09:10 Temperature 97.2 F L Temperature Source Temporal Pulse Rate 69 Respiratory Rate 18 Blood Pressure 146/65 H Blood Pressure Mean 92 Blood Pressure Source Monitor Blood Pressure Position Sitting Blood Pressure Location Left Arm Oxygen Delivery Method Room Air Weight Weight: 187 lb Body Mass Index (BMI) 28.4 Physical Exam Const alert, oriented x3, no apparent distress, average body habitus and well nourished Constitutional Narrative: The patient's BMI is 28.4. General Appearance: cooperative, comfortable, well kempt and well developed Orientation / Consciousness: awake, oriented to person, oriented to place and oriented to time HEENT normocephalic, head/scalp atraumatic and hearing grossly normal bilaterally Head and Scalp: normal to inspection, normocephalic and atraumatic External Ear: external ears normal Eyes PERRL and EOMs intact bilaterally General Eye: normal appearance of both eyes Resp normal respiratory effort, normal air movement, no retractions and no use of accessory muscles Effort and Inspection: able to speak in complete sentences Extremity no calf tenderness General Extremity: Negative for clubbing or cyanosis Skin Wound Narrative: Lower extremities are warm and well-perfused. Pedal pulses are brisk bilaterally. Scattered excoriations and mild dermatitis are noted in the gaiter areas bilaterally. No significant swelling or edema are noted. There is no sign of infection or cellulitis. Neuro oriented x3, CN's II-XII intact bilaterally, moves all extremities and no focal motor deficits Sensorium / Orientation: awake, alert, oriented to person, oriented to place and oriented to time Psych Appearance: grossly normal and appropriate Attitude: calm Activity / Motor Behavior: appropriate eye contact Speech: normal speech Mood & Affect: euthymic mood Thought Process: normal thought process Thought Content: normal thought content Attention / Concentration: attention grossly intact Debridement Note Debridement Note No debridement was completed: No debridement was completed today (There are no open wounds or ulcerations.) Post-Debridement Measurements and Additional Note: Post-Debridement Measurements/Treatment - Nurse 1 - General Ulcer Assessment Start: 08/07/23 09:08 Freq: Status: Active Protocol: MAYO Activity Type Activity Date Activity User E-sign Co-sign Detail Recorded Client Recorded Date Recorded By Document 08/07/23 09:10 [facility] Desktop 08/07/23 09:27 [facility] 08/07/23 09:10 - Today's Visit Information Type of service Initial Visit Arrival Mode Ambulatory Transfer Assistance None Patient Identification Verified (Name & Yes ) Patient Requires Transmission-Based No Precautions Height and Weight Height 5 ft 8 in Weight 187 lb Weight in Pounds 187.0 lbs Weight Measurement Method Stated by Patient Body Mass Index (BMI) 28.4 BMI Classification Overweight BSA - Jose Daniel 1.99 Vital Signs Temperature (97.8 F-99.1 F) 97.2 F L Temperature Source Temporal Pulse Rate (60-100) 69 Pulse Location Monitor Respiratory Rate (12-18) 18 Respiratory rate source Observation Oxygen Delivery Method Room Air Blood Pressure (90/60-120/80) 146/65 H Blood Pressure Mean 92 Source Monitor Position Sitting Blood Pressure Location Left Arm History Since Last Visit- (Skip if this is Patient's initial visit) Left Footwear Regular Shoe Right Footwear Regular Shoe Pain Scale: 0-10 Numeric Is Patient Pain Free? Yes Lower Extremity Assessment/ Foot Assessment/ Toe Nail Assessment Right -Posterior Tibial Palpable No -Posterior Tibial Doppler Monophasic -Dorsalis Pedis Palpable No -Dorsalis Pedis Doppler Monophasic -Extremity Color Hyperpigmented -Hair Growth on Legs No -Hair Growth on Toes No -Temperature of Extremity Cool -Other Deformity No -Prior Foot Ulcer No -Charcot Joint No -Prior Amputation No -Thick Yes -Discolored Yes -Deformed No -Improper Length & Hygeine No Left -Posterior Tibial Palpable No -Posterior Tibial Doppler Multiphasic -Dorsalis Pedis Doppler Multiphasic -Extremity Color Hyperpigmented -Hair Growth on Legs No -Hair Growth on Toes No -Temperature of Extremity Cool -Other Deformity No -Prior Foot Ulcer No -Charcot Joint No -Prior Amputation No -Thick Yes -Discolored Yes -Deformed No -Improper Length & Hygeine No Neuropathy Assessment Feet - Top Side and Bottom <Entered> (a) Communication Assessment Preferred language Bengali Office Inspector Required No Able to Read Yes Able to Write Yes Communication Tools None Right Hearing Abillity Hard of Hearing Left Hearing Abillity Hard of Hearing Visual Assistive Devices Glasses Teaching Assessment Preferences Verbal,Written, Audio/Visual, Demonstration Barriers to Learning None Readiness To Learn Excellent Willingness to Engage in Self Management High Activies Readiness to Engage in Self Management High Activities Anxiety Level Calm Cooperation Cooperative Perception Coherent Interest in Health Problem Asks Questions Education Importance Acknowledges Need Does Patient Smoke tobacco or other No substances Smoking Status Former smoker Is Patient Diabetic No Functional Assessment Recent Decline in Ability to Perform Denies Any Declines Culture/Yarsanism/Traffic Lieutenant Cultural/Yarsanism Needs that may affect No Treatment Plan Teaching: Wound Center *Welcome to the Wound Center -Person Taught Patient -Teaching Method Discussion -Response to teaching Verbalize understanding Welcome to the Wound Care Center Bengali (a) 1 - + WC - Nurse 1 - General Ulcer Measurement Start: 08/07/23 09:08 Freq: Status: Active Protocol: Activity Type Activity Date Activity User E-sign Co-sign Detail Recorded Client Recorded Date Recorded By Document 08/07/23 09:10 [facility] Desktop 08/07/23 09:27 [place] 08/07/23 09:10 Wound Center Nurse 1 #1- R MED LE CLUSTER -Combined with other wound No -Current Size (cm) - Length 0.1 -Current Size (cm) - Width 0.1 -Current Size (cm) - Depth 0.1 -Total Square Cm 0.01 -Date of Last Picture (Recall this 08/07/23 field) -Photo Taken Yes -Epithelialization None Present -Tunneling No -Undermining/Tunneling No -Circular Undermining No -Exudate Amt None Present -Wound Margin Flat & Intact -Necrosis Amt Small (1-33%) -Necrotic Tissue Type Eschar -Texture (Gloria-wound Skin Appearance) Assessed, Scarring,Rash -Moisture (Gloria-wound Skin Appearance) Assessed,Dry/ Scaly -Color (Gloria-wound Skin Appearance) Assessed -Temperature (Gloria-wound Skin No Abnormality Appearance) (Pt Warm) -Tenderness on Palpation (Gloria-wound No Skin Appearance) -Ulcer Cleansing Rinsed/ Irrigated with Saline -Foul Odor after Cleansing No -Anesthetic Used 4% Lidocaine Solution Right Calf (cm) 36.5 Right Ankle (cm) 20.6 Left Calf (cm) 35.3 Left Ankle (cm) 20.2 Assessment/Plan Assessment/Plan (1) Venous stasis dermatitis: CODE(S): I87.2 - Venous insufficiency (chronic) (peripheral) QUALIFIERS: Laterality: bilateral Qualified Code(s): I87.2 - Venous insufficiency (chronic) (peripheral) (2) Chronic venous insufficiency: CODE(S): I87.2 - Venous insufficiency (chronic) (peripheral) (3) Mild aortic stenosis: CODE(S): I35.0 - Nonrheumatic aortic (valve) stenosis (4) Peripheral vascular disease, unspecified: CODE(S): I73.9 - Peripheral vascular disease, unspecified (5) Neuropathy of right foot: CODE(S): G57.91 - Unspecified mononeuropathy of right lower limb (6) Atherosclerosis of coronary artery of [place] heart without angina pectoris: CODE(S): I25.10 - Atherosclerotic heart disease of [place] coronary artery without angina pectoris QUALIFIERS: Coronary Disease-Associated Artery/Lesion type: [place] artery Qualified Code(s): I25.10 - Atherosclerotic heart disease of [place] coronary artery without angina pectoris (7) H/O coronary artery bypass surgery: CODE(S): Z95.1 - Presence of aortocoronary bypass graft (8) History of coronary artery stent placement: CODE(S): Z95.5 - Presence of coronary angioplasty implant and graft (9) History of open heart surgery: CODE(S): Z98.890 - Other specified postprocedural states (10) Presence of cardiac pacemaker: CODE(S): Z95.0 - Presence of cardiac pacemaker (11) Longstanding persistent atrial fibrillation: CODE(S): I48.11 - Longstanding persistent atrial fibrillation (12) Nonrheumatic aortic (valve) stenosis: CODE(S): I35.0 - Nonrheumatic aortic (valve) stenosis (13) Chronic diastolic (congestive) heart failure: CODE(S): I50.32 - Chronic diastolic (congestive) heart failure (14) Essential (primary) hypertension: CODE(S): I10 - Essential (primary) hypertension (15) HLD (hyperlipidemia): CODE(S): E78.5 - Hyperlipidemia, unspecified QUALIFIERS: Hyperlipidemia type: pure hypercholesterolemia Qualified Code(s): E78.00 - Pure hypercholesterolemia, unspecified (16) intermediate (current) use of anticoagulants: CODE(S): Z79.01 - terminal computer operator (current) use of anticoagulants (17) COPD (chronic obstructive pulmonary disease): CODE(S): J44.9 - Chronic obstructive pulmonary disease, unspecified QUALIFIERS: COPD type: unspecified COPD Qualified Code(s): J44.9 - Chronic obstructive pulmonary disease, unspecified (18) Asthma-COPD overlap syndrome: CODE(S): J44.9 - Chronic obstructive pulmonary disease, unspecified (19) Osteoarthritis: CODE(S): M19.90 - Unspecified osteoarthritis, unspecified site (20) Rheumatoid arthritis: CODE(S): M06.9 - Rheumatoid arthritis, unspecified (21) Degenerative disc disease, thoracic: CODE(S): M51.34 - Other intervertebral disc degeneration, thoracic region (22) Gout: CODE(S): M10.9 - Gout, unspecified (23) Diverticulosis: CODE(S): K57.90 - Diverticulosis of intestine, part unspecified, without perforation or abscess without bleeding (24) Atherosclerosis of both carotid arteries: CODE(S): I65.23 - Occlusion and stenosis of bilateral carotid arteries (25) History of right hip replacement: CODE(S): Z96.641 - Presence of right artificial hip joint (26) History of carpal tunnel surgery of left wrist: CODE(S): Z98.890 - Other specified postprocedural states (27) History of stent insertion of renal artery: CODE(S): Z98.890 - Other specified postprocedural states PLAN: Plan This is an 83-year-old female who presented with manifestations suggestive of chronic venous insufficiency and venous stasis dermatitis. Multiple scattered excoriations are noted in the lower extremities bilaterally, though no boris open wounds or ulcerations. Venous duplex examination approximately 1 year ago has documented the presence of superficial venous insufficiency in the lower extremities bilaterally. No significant swelling or edema are noted. We are to implement conservative treatment measures relative to the patient's venous disease. The patient is to continue sleeping on a flat mattress at night. Leg elevation has been encouraged, even during daytime hours. Her legs are to be elevated to heart level, or higher, is much as possible. Activity has been encouraged. Prolonged idle sitting has been discouraged. The patient's weight is optimal. We are to implement compression to the lower extremities by means of Unna boots which will be applied bilaterally, and changed twice weekly. The patient is to return in 1 week for reevaluation. Total time: 48 minutes
[2023-08-10 12:09] VITALS: BP 140/66; PULSE 69; RESP 18; TEMP 36.1; BMI 28.4
[2023-08-14 10:46] VITALS: BP 121/62; PULSE 69; RESP 18; TEMP 36.7; BMI 28.4
--- NOTE | 2023-08-14 11:37 | HP.PCM_ITS ---
History of Present Illness Date of Service: 08/14/23 Chief Complaint: Bilateral lower extremity venous stasis dermatitis with e xcoriations History of Wound: This is an 83-year-old female with a longstanding history of chronic venous disease. She presented with venous stasis dermatitis in the gaiter areas bilaterally. She has suffered from these manifestations for many years. She denies significant swelling in her lower extremities. She has been using Silvadene topically recently, though has used a variety of topical ointments. She is active and ambulatory. She ambulates without limitation. She denies symptoms to suggest intermittent claudication. She denies a history of thrombophlebitis. She sleeps on a flat mattress at night. A venous duplex examination was performed on May 04, 2022, revealing incompetence of the right great saphenous vein, right small saphenous vein, right accessory saphenous vein and an incompetent right territory account manager vein. Incompetence was also noted in the left great saphenous vein, right small saphenous vein, and right accessory saphenous vein x2. A noninvasive lower extremity arterial study performed on May 04, 2022, revealed normal flow at ankle level bilaterally, and at digital level on the right, with mild arterial occlusive disease at digital level on the left. 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 History of pulmonary embolism History of stent insertion of renal artery HLD (hyperlipidemia) Hypothyroidism Longstanding persistent atrial fibrillation Mild aortic stenosis Non-ischemic cardiomyopathy Nonrheumatic aortic (valve) stenosis Osteoarthritis Osteoarthritis Rheumatoid arthritis SARS-CoV-2 positive Venous stasis dermatitis Home Medications aspirin 81 mg tablet,delayed release 81 mg PO QHS afib 09/08/14 [History Last Taken 06/20/19] levothyroxine 100 mcg tablet 100 mcg PO QDAY thyroid 04/19/18 [History Last Taken Unknown] spacer #1 ea 01/27/20 [Rx Last Taken Unknown] albuterol sulfate 90 mcg/actuation aerosol inhaler 2 puff inhalation Q6H PRN shortness of breath or wheezing #8.5 grams 09/01/20 [Rx Last Taken Unknown] sertraline 50 mg tablet 50 mg PO DAILY #90 tabs 10/15/20 [Rx Last Taken Unknown] calcium carb-vit [id number] 333 mg-200 unit-133 mg-5 mg tablet 1 tab PO DAILY 10/11/21 [History Last Taken Unknown] metoprolol tartrate 25 mg tablet 12.5 mg (1/2 x 25 mg) PO BID #90 tabs 09/13/22 [Rx Last Taken Unknown] torsemide 20 mg tablet 20 mg PO DAILY #90 tabs 09/13/22 [Rx Last Taken Unknown] fluticasone propionate 250 mcg/actuation blister powder for inhalation (Flovent Diskus) 1 inh inhalation BID #3 device 09/14/22 [Rx Last Taken Unknown] apixaban 5 mg tablet (Eliquis) 5 mg PO BID #180 tabs 11/13/22 [Rx Last Taken Unknown] atorvastatin 40 mg tablet 40 mg PO QHS cholesterol #90 tabs 11/13/22 [Rx Last Taken Unknown] potassium chloride 20 mEq tablet,extended release 20 meq PO DAILY #90 tabs 03/09/23 [Rx Last Taken Unknown] Allergy/AdvReac Type Severity Reaction Status Date / Time No Known Allergies Allergy Verified 08/07/23 09:30 Family History Father Myocardial infarction Mother Cancer breast Sister Dementia Sister Colon cancer Surgical History H/O coronary artery bypass surgery (08/28/19) History of appendectomy History of arthroscopic knee surgery History of carpal tunnel release of both wrists History of carpal tunnel surgery of left wrist History of coronary artery stent placement (07/23/09) History of left heart catheterization (06/20/19) History of open heart surgery (10/15/09) History of radiofrequency ablation procedure for cardiac arrhythmia (10/15/09) History of right hip replacement History of stent insertion of renal artery (03/22/11) Hx of atrioventricular node ablation (08/02/12) Presence of cardiac pacemaker (04/29/18) Social History Smoking Status: Former smoker Tobacco: How many years used: 20 how long ago did patient quit smokin, 1ppd second hand exposure: Yes alcohol intake: current alcohol intake frequency: holidays/special occasions only substance use type: does not use caffeine: Yes (occasional) Type: carbonated beverages and coffee Vital Signs Vital Signs Vital Signs: 08/14/23 10:46 Temperature 98.1 F Temperature Source Temporal Pulse Rate 69 Respiratory Rate 18 Blood Pressure 121/62 H Blood Pressure Mean 81 Blood Pressure Source Monitor Blood Pressure Position Semi-Fowlers Blood Pressure Location Left Arm Weight Weight: 187 lb Body Mass Index (BMI) 28.4 Physical Exam Const alert, oriented x3, no apparent distress, average body habitus and well nourished Constitutional Narrative: The patient's BMI is 28.4. General Appearance: cooperative, comfortable, well kempt and well developed Orientation / Consciousness: awake, oriented to person, oriented to place and oriented to time HEENT normocephalic, head/scalp atraumatic and hearing grossly normal bilaterally Head and Scalp: normal to inspection, normocephalic and atraumatic External Ear: external ears normal Eyes PERRL and EOMs intact bilaterally General Eye: normal appearance of both eyes Resp normal respiratory effort, normal air movement, no retractions and no use of accessory muscles Effort and Inspection: able to speak in complete sentences Extremity no calf tenderness General Extremity: Negative for clubbing or cyanosis Skin Wound Narrative: Lower extremities are warm and well-perfused. Pedal pulses are brisk bilaterally. Scattered excoriations and mild venous stasis dermatitis are noted in the gaiter areas bilaterally. No significant swelling or edema are noted. There is no sign of infection or cellulitis. There has been significant improvement within the last week, with nearly complete resolution of the dermatitis in the left gaiter area. Neuro oriented x3, CN's II-XII intact bilaterally, moves all extremities and no focal motor deficits Sensorium / Orientation: awake, alert, oriented to person, oriented to place and oriented to time Psych Appearance: grossly normal and appropriate Attitude: calm Activity / Motor Behavior: appropriate eye contact Speech: normal speech Mood & Affect: euthymic mood Thought Process: normal thought process Thought Content: normal thought content Attention / Concentration: attention grossly intact Debridement Note Debridement Note No debridement was completed: No debridement was completed today (There are no open wounds or ulcerations.) Post-Debridement Measurements and Additional Note: Post-Debridement Measurements/Treatment WC - Nurse 1 - General Ulcer Assessment Start: 08/07/23 09:08 Freq: Status: Active Protocol: IRAIDA.LOW[place]ILT Activity Type Activity Date Activity User E-sign Co-sign Detail Recorded Client Recorded Date Recorded By Document 08/07/23 09:10 BMF Desktop 08/07/23 09:27 BMF Document 08/10/23 12:09 KW Desktop 08/10/23 12:20 KW Document 08/14/23 10:46 RB Desktop 08/14/23 10:48 RB 08/07/23 08/10/23 08/14/23 09:10 12:09 10:46 WC - Today's Visit Information Type of service Initial Visit Nurse-only Follow-up Visit Visit (Physician/POWER SAW MECHANIC ) Arrival Mode Ambulatory Ambulatory Ambulatory Transfer Assistance None None Patient Identification Verified (Name & Yes Yes Yes ) Patient Requires Transmission-Based No No Precautions Height and Weight Height 5 ft 8 in Weight 187 lb Weight in Pounds 187.0 lbs Weight Measurement Method Stated by Patient Body Mass Index (BMI) 28.4 28.4 28.4 BMI Classification Overweight Overweight Overweight BSA - Jose Daniel 1.99 Vital Signs Temperature (97.8 F-99.1 F) 97.2 F L 97.0 F L 98.1 F Temperature Source Temporal Temporal Temporal Pulse Rate (60-100) 69 69 69 Pulse Location Monitor Monitor Monitor Respiratory Rate (12-18) 18 18 18 Respiratory rate source Observation Observation Observation Oxygen Delivery Method Room Air Room Air Blood Pressure (90/60-120/80) 146/65 H 140/66 H 121/62 H Blood Pressure Mean 92 90 81 Source Monitor Monitor Monitor Position Sitting Sitting Semi-Fowlers Blood Pressure Location Left Arm Left Arm Left Arm History Since Last Visit- (Skip if this is Patient's initial visit) Have you changed medications since your No No last visit? Any new allergies or adverse reactions No No Had a fall/change in ADL's that may No No increase risk of falls Signs or symptoms of abuse and/or No No neglect since last visit Have you been in the hospital since your No No last visit? Has dressing in place as prescribed Yes Yes Has compression in place as prescribed Yes Yes Has offloadiing in place as prescribed No No Experienced any changes in pain level or No No management Left Footwear Regular Shoe Regular Shoe Right Footwear Regular Shoe Regular Shoe Pain Scale: 0-10 Numeric Is Patient Pain Free? Yes Yes Yes Lower Extremity Assessment/ Foot Assessment/ Toe Nail Assessment Right -Posterior Tibial Palpable No -Posterior Tibial Doppler Monophasic -Dorsalis Pedis Palpable No -Dorsalis Pedis Doppler Monophasic -Extremity Color Hyperpigmented -Hair Growth on Legs No -Hair Growth on Toes No -Temperature of Extremity Cool -Other Deformity No -Prior Foot Ulcer No -Charcot Joint No -Prior Amputation No -Thick Yes -Discolored Yes -Deformed No -Improper Length & Hygeine No Left -Posterior Tibial Palpable No -Posterior Tibial Doppler Multiphasic -Dorsalis Pedis Doppler Multiphasic -Extremity Color Hyperpigmented -Hair Growth on Legs No -Hair Growth on Toes No -Temperature of Extremity Cool -Other Deformity No -Prior Foot Ulcer No -Charcot Joint No -Prior Amputation No -Thick Yes -Discolored Yes -Deformed No -Improper Length & Hygeine No Neuropathy Assessment Feet - Top Side and Bottom <Entered> (a) Communication Assessment Preferred language Jamaican After School Coordinator Required No Able to Read Yes Able to Write Yes Communication Tools None Right Hearing Abillity Hard of Hearing Left Hearing Abillity Hard of Hearing Visual Assistive Devices Glasses Teaching Assessment Preferences Verbal,Written, Audio/Visual, Demonstration Barriers to Learning None Readiness To Learn Excellent Willingness to Engage in Self Management High Activies Readiness to Engage in Self Management High Activities Anxiety Level Calm Cooperation Cooperative Perception Coherent Interest in Health Problem Asks Questions Education Importance Acknowledges Need Does Patient Smoke tobacco or other No substances Smoking Status Former smoker Is Patient Diabetic No Functional Assessment Recent Decline in Ability to Perform Denies Any Declines Culture/Hoahaoism/Public Health Technician Cultural/Hoahaoism Needs that may affect No Treatment Plan Teaching: Wound Center *Welcome to the Wound Center -Person Taught Patient -Teaching Method Discussion -Response to teaching Verbalize understanding Welcome to the Wound Care Center Jamaican (a) 1 - + WC - Nurse 1 - General Ulcer Measurement Start: 08/07/23 09:08 Freq: Status: Active Protocol: Activity Type Activity Date Activity User E-sign Co-sign Detail Recorded Client Recorded Date Recorded By Document 08/07/23 09:10 BMF Desktop 08/07/23 09:27 BMF Document 08/10/23 12:09 KW Desktop 08/10/23 12:20 KW Document 08/14/23 10:46 RB Desktop 08/14/23 10:48 RB 08/07/23 08/10/23 08/14/23 09:10 12:09 10:46 Wound Center Nurse 1 #1- R MED LE CLUSTER -Combined with other wound No No -Current Size (cm) - Length 0.1 8.5 0.1 -Current Size (cm) - Width 0.1 2.0 0.1 -Current Size (cm) - Depth 0.1 0.1 0.1 -Total Square Cm 0.01 17.00 0.01 -Date of Last Picture (Recall this 08/07/23 field) -Photo Taken Yes -Epithelialization None Present -Tunneling No No -Undermining/Tunneling No No -Circular Undermining No No -Exudate Amt None Present Small Medium -Exudate Type Serosanguineous Serosanguineous -Wound Margin Flat & Intact Distinct, Distinct, Outline Outline Attached Attached -Granulation Amt Medium (34-66%) -Granulation Quality [place] -Slough/Fibrin Yes -Necrosis Amt Small (1-33%) Small (1-33%) -Necrotic Tissue Type Eschar Adherent Slough -Structure Exposed N/A -Texture (Gloria-wound Skin Appearance) Assessed, Assessed Assessed Scarring,Rash -Moisture (Gloria-wound Skin Appearance) Assessed,Dry/ Assessed Scaly -Color (Gloria-wound Skin Appearance) Assessed Assessed, Assessed Erythema -Temperature (Gloria-wound Skin No Abnormality No Abnormality No Abnormality Appearance) (Pt Warm) (Pt Warm) (Pt Warm) -Tenderness on Palpation (Gloria-wound No No Skin Appearance) -Ulcer Cleansing Rinsed/ Soap and Water Wound Cleanser Irrigated with Saline -Foul Odor after Cleansing No No -Anesthetic Used 4% Lidocaine 5% Lidocaine Solution Gel -Wound Comment(s) scabbed Lower Limb Edema Present Yes Right Calf (cm) 36.5 36.8 Right Ankle (cm) 20.6 20.5 Left Calf (cm) 35.3 36 Left Ankle (cm) 20.2 21 WC - Nurse 3 - General Ulcer D/C NN Start: 08/07/23 09:08 Freq: Status: Active Protocol: Activity Type Activity Date Activity User E-sign Co-sign Detail Recorded Client Recorded Date Recorded By Document 08/07/23 10:15 BMF Desktop 08/07/23 10:16 BMF Document 08/10/23 12:20 KW Desktop 08/10/23 12:20 KW Document 08/14/23 11:22 MT Desktop 08/14/23 11:24 MT 08/07/23 08/10/23 08/14/23 10:15 12:20 11:22 Wound Care Center Nurse 3 #1- R MED LE CLUSTER -Other Dressing UNNA BOOT BLE -Multi-Layered Wrap Application Unna Boot - Unna Boot - Unna Boot - Bilateral ($) Bilateral ($) Bilateral ($) Pain Scale: 0-10 Numeric Is Patient Pain Free? Yes Yes Yes WC - Visit Discharge Discharge Condition Stable Stable Stable Ambulatory Status Ambulatory Ambulatory Ambulatory Transportation Private Auto Private Auto Private Auto Medication Reconcilliation completed & No No provided to patient/care provider Clinical Summary of Care Provided Yes Yes Notes: pt knows to keep her legs dry. Assessment/Plan Assessment/Plan (1) Venous stasis dermatitis: CODE(S): I87.2 - Venous insufficiency (chronic) (peripheral) QUALIFIERS: Laterality: bilateral Qualified Code(s): I87.2 - Venous insufficiency (chronic) (peripheral) (2) Chronic venous insufficiency: CODE(S): I87.2 - Venous insufficiency (chronic) (peripheral) (3) Mild aortic stenosis: CODE(S): I35.0 - Nonrheumatic aortic (valve) stenosis (4) Peripheral vascular disease, unspecified: CODE(S): I73.9 - Peripheral vascular disease, unspecified (5) Neuropathy of right foot: CODE(S): G57.91 - Unspecified mononeuropathy of right lower limb (6) Atherosclerosis of coronary artery of [place] heart without angina pectoris: CODE(S): I25.10 - Atherosclerotic heart disease of [place] coronary artery without angina pectoris QUALIFIERS: Coronary Disease-Associated Artery/Lesion type: [place] artery Qualified Code(s): I25.10 - Atherosclerotic heart disease of [place] coronary artery without angina pectoris (7) H/O coronary artery bypass surgery: CODE(S): Z95.1 - Presence of aortocoronary bypass graft (8) History of coronary artery stent placement: CODE(S): Z95.5 - Presence of coronary angioplasty implant and graft (9) History of open heart surgery: CODE(S): Z98.890 - Other specified postprocedural states (10) Presence of cardiac pacemaker: CODE(S): Z95.0 - Presence of cardiac pacemaker (11) Longstanding persistent atrial fibrillation: CODE(S): I48.11 - Longstanding persistent atrial fibrillation (12) Nonrheumatic aortic (valve) stenosis: CODE(S): I35.0 - Nonrheumatic aortic (valve) stenosis (13) Chronic diastolic (congestive) heart failure: CODE(S): I50.32 - Chronic diastolic (congestive) heart failure (14) Essential (primary) hypertension: CODE(S): I10 - Essential (primary) hypertension (15) HLD (hyperlipidemia): CODE(S): E78.5 - Hyperlipidemia, unspecified QUALIFIERS: Hyperlipidemia type: pure hypercholesterolemia Qualified Code(s): E78.00 - Pure hypercholesterolemia, unspecified (16) MCC (current) use of anticoagulants: CODE(S): Z79.01 - MCC (current) use of anticoagulants (17) COPD (chronic obstructive pulmonary disease): CODE(S): J44.9 - Chronic obstructive pulmonary disease, unspecified QUALIFIERS: COPD type: unspecified COPD Qualified Code(s): J44.9 - Chronic obstructive pulmonary disease, unspecified (18) Asthma-COPD overlap syndrome: CODE(S): J44.9 - Chronic obstructive pulmonary disease, unspecified (19) Osteoarthritis: CODE(S): M19.90 - Unspecified osteoarthritis, unspecified site (20) Rheumatoid arthritis: CODE(S): M06.9 - Rheumatoid arthritis, unspecified (21) Degenerative disc disease, thoracic: CODE(S): M51.34 - Other intervertebral disc degeneration, thoracic region (22) Gout: CODE(S): M10.9 - Gout, unspecified (23) Diverticulosis: CODE(S): K57.90 - Diverticulosis of intestine, part unspecified, without perforation or abscess without bleeding (24) Atherosclerosis of both carotid arteries: CODE(S): I65.23 - Occlusion and stenosis of bilateral carotid arteries (25) History of right hip replacement: CODE(S): Z96.641 - Presence of right artificial hip joint (26) History of carpal tunnel surgery of left wrist: CODE(S): Z98.890 - Other specified postprocedural states (27) History of stent insertion of renal artery: CODE(S): Z98.890 - Other specified postprocedural states PLAN: Plan This is an 83-year-old female who presented with manifestations suggestive of chronic venous insufficiency and venous stasis dermatitis. Multiple scattered excoriations are noted in the lower extremities bilaterally, though no boris open wounds or ulcerations. Venous duplex examination approximately 1 year ago has documented the presence of superficial venous insufficiency in the lower extremities bilaterally. No significant swelling or edema are noted. We are to implement conservative treatment measures relative to the patient's venous disease. The patient is to continue sleeping on a flat mattress at night. Leg elevation has been encouraged, even during daytime hours. Her legs are to be elevated to heart level, or higher, is much as possible. Activity has been encouraged. Prolonged idle sitting has been discouraged. The patient's weight is optimal. We are to continue compression to the lower extremities by means of Unna boots which will be applied bilaterally, and changed twice weekly. The patient is to return in 1 week for reevaluation. Total time: 24 minutes
[2023-08-17 13:11] VITALS: BP 130/67; PULSE 69; RESP 16; TEMP 36.4; BMI 28.4
[2023-08-21 13:19] VITALS: BP 106/66; PULSE 72; RESP 16; TEMP 36.1; BMI 28.4
== END 2023-08-28 23:59 | disposition home or self-care (01) ==
LOC: WC 13:00
PROVIDERS: PCP Family Medicine; Referring Provider Family Medicine; Visit Provider Surgery
DX: I87.8 Other specified disorders of veins (principal); M06.9 Rheumatoid arthritis, unspecified; J44.9 Chronic obstructive pulmonary disease, unspecified; I11.0 Hypertensive heart disease with heart failure; I42.8 Other cardiomyopathies; I50.32 Chronic diastolic (congestive) heart failure; I73.9 Peripheral vascular disease, unspecified; I48.11 Longstanding persistent atrial fibrillation; I25.10 Atherosclerotic heart disease of native coronary artery without angina pectoris; Z86.16 Personal history of COVID-19; Z79.01 Long term (current) use of anticoagulants; Z95.0 Presence of cardiac pacemaker; Z87.891 Personal history of nicotine dependence; G57.91 Unspecified mononeuropathy of right lower limb; E78.00 Pure hypercholesterolemia, unspecified; Z79.82 Long term (current) use of aspirin; Z79.899 Other long term (current) drug therapy; Z79.890 Hormone replacement therapy; E03.9 Hypothyroidism, unspecified; Z95.1 Presence of aortocoronary bypass graft
CPT/HCPCS: 11042; 29580; 99211; 99213; G0463

== ENCOUNTER → 2023-08-22 | Outpatient (CLI) | payer MEDICARE, OTHER, SELFPAY ==
[2019-12-31 09:04] VITALS: BMI 30.9
[2023-08-22 16:22] LABS: Anion Gap 5 (5-15); BUN 24 mg/dL (7-18); BUN/Creat Ratio 22.4 RATIO (10-20); Calcium,Total 9.4 mg/dL (8.5-10.1); Chloride 105 mmol/L (98-107); Creatinine, Serum 1.07 mg/dL (0.55-1.02); EST Glomerular Filtration Rate 52 mL/min (>60); Est Glom Filt Rate - Afr Amer 63 mL/min (>60); Glucose 88 mg/dL (74-106); Potassium 3.8 mmol/L (3.5-5.1); Sodium Level 138 mmol/L (136-145)
== END | disposition home or self-care (01) ==
PROVIDERS: PCP Family Medicine; Referring Provider Nurse Practitioner Gerontology; Visit Provider Nurse Practitioner Gerontology
DX: R06.09 Other forms of dyspnea (principal)
CPT/HCPCS: 36415; 80048

== ENCOUNTER → 2024-03-12 | Outpatient (CLI) | payer MEDICARE, OTHER, SELFPAY ==
[2019-12-31 09:04] VITALS: BMI 30.9
[2024-03-12 12:29] LABS: Absolute Lymphocyte Count 1.15 X10^3/uL (0.83-4.51); Absolute Neutrophil Count 3.3 X10^3/uL (2.0-7.7); Basophil# 0.03 X10^3/uL; Basophil% 0.5 % (0-1); Eosinophil# 0.11 X10^3/uL; Hematocrit 37.8 % (37-47); Hemoglobin 11.5 g/dL (12.0-15.0); Lymphocyte # 1.15 X10^3/ul (0.83-4.51); Lymphocyte % 20.8 % (19-41); Mean Corp Hgb Conc 30.4 g/dL (32-36); Mean Corpuscular Hgb 29.7 pg (27.0-32.0); Mean Corpuscular Volume 97.7 fL (81-99); Mean Platelet Vol. 11.1 fl (6.2-12.0); Monocyte# 0.93 X10^3/uL; Monocyte% 16.8 % (0-10); NRBC Flagged by Analyzer 0 % (0-5); Neutrophil # 3.27 X10^3/uL (2.7-7.7); POSITIVE COUNT YES; Platelet Count 81 K/mm3 (150-450); RBC Distribution Width CV 15.8 % (11.6-14.6); RBC Distribution Width SD 55.5 fl (35.1-43.9); Red Blood Count 3.87 M/mm3 (4.2-5.4); White Blood Count 5.5 K/mm3 (4.4-11.0)
[2024-03-12 12:44] LABS: Anion Gap 0 (5-15); BUN 17 mg/dL (7-18); BUN/Creat Ratio 16.7 RATIO (10-20); Calcium,Total 9.8 mg/dL (8.5-10.1); Chloride 105 mmol/L (98-107); Creatinine, Serum 1.02 mg/dL (0.55-1.02); EST Glomerular Filtration Rate 55 mL/min (>60); Est Glom Filt Rate - Afr Amer 67 mL/min (>60); Glucose 91 mg/dL (74-106); Potassium 4.7 mmol/L (3.5-5.1); Sodium Level 136 mmol/L (136-145)
== END | disposition home or self-care (01) ==
LOC: LAB 11:51
PROVIDERS: PCP Family Medicine; Referring Provider Nurse Practitioner Gerontology; Visit Provider Nurse Practitioner Gerontology
DX: R06.09 Other forms of dyspnea (principal)
CPT/HCPCS: 36415; 80048; 83880; 85025

== ENCOUNTER → 2024-03-21 | Outpatient (CLI) | payer MEDICARE, OTHER, SELFPAY ==
[2019-12-31 09:04] VITALS: BMI 30.9
[2024-03-21 10:57] LABS: Anion Gap 7 (5-15); BUN 21 mg/dL (7-18); BUN/Creat Ratio 19.3 RATIO (10-20); Calcium,Total 9.1 mg/dL (8.5-10.1); Chloride 106 mmol/L (98-107); Creatinine, Serum 1.09 mg/dL (0.55-1.02); EST Glomerular Filtration Rate 51 mL/min (>60); Est Glom Filt Rate - Afr Amer 62 mL/min (>60); Glucose 104 mg/dL (74-106); Potassium 3.9 mmol/L (3.5-5.1); Sodium Level 139 mmol/L (136-145)
== END | disposition home or self-care (01) ==
LOC: MTLAB 08:04
PROVIDERS: PCP Family Medicine; Referring Provider Nurse Practitioner Gerontology; Visit Provider Nurse Practitioner Gerontology
DX: R06.09 Other forms of dyspnea (principal)
CPT/HCPCS: 36415; 80048

== ENCOUNTER → 2024-03-28 | Outpatient (CLI) | payer MEDICARE, OTHER, SELFPAY ==
[2019-12-31 09:04] VITALS: BMI 30.9
--- NOTE | 2024-03-28 10:28 | BI_ITS ---
MAMMOGRAPHY - BILATERAL SCREENING REASON FOR EXAM: Female, 83 years old. Routine annual screening examination. PERTINENT HISTORY: Mother with breast cancer. TECHNIQUE: Digital bilateral breast aleah (3D mammographic acquisition) in the CC and MLO projections. 2-D mediolateral oblique (MLO) and craniocaudad (CC) views of both breasts were obtained. CAD: Full Field Digital Mammography with Computer Added Detection was performed. COMPARISON: Comparison is made with prior study March 20, 2023 and March 15, 2022. FINDINGS: Breast Composition: The breasts are heterogeneously dense, which may obscure small masses. There are no dominant masses or suspicious calcifications. No other significant abnormalities are identified. There has been no significant change since the prior study. BI/SCRN MAMM (CAD)W/ALEAH BILAT IMPRESSION: Stable bilateral screening mammogram. Yearly follow-up mammogram recommended. (A) ASSESSMENT CATEGORY: BIRADS Category 1: Negative. A letter regarding these results will be sent to the patient by the facility within 30 days. Approximately 10% of breast cancers are not detected by mammography. A normal mammogram should not delay biopsy of a clinically suspicious abnormality. [id number] Electronically Signed: Cyril Oneil MD at 12:10 EDT ,
== END | disposition home or self-care (01) ==
LOC: OPBI 10:27
PROVIDERS: PCP Family Medicine; Referring Provider Family Medicine; Visit Provider Family Medicine
DX: Z12.31 Encounter for screening mammogram for malignant neoplasm of breast (principal); Z80.3 Family history of malignant neoplasm of breast
CPT/HCPCS: 77063; 77067

== ENCOUNTER → 2024-04-16 | Outpatient (CLI) | payer MEDICARE, OTHER, SELFPAY ==
[2019-12-31 09:04] VITALS: BMI 30.9
--- NOTE | 2024-04-16 13:36 | ECHOD_ITS ---
Reason For Study: MORALES Procedure This was a 2D Doppler, Color Flow transthoracic echocardiogram. Exam performed in department. Left Ventricle Normal LV size. Left ventricular systolic function is lower limits of normal. The left ventricular ejection fraction is 50 %. No regional wall motion abnormalities noted. Right Ventricle Moderately dilated right ventricle. Mild global right ventricular systolic dysfunction. Atria The left atrium is severely enlarged. The right atrium is severely enlarged. Tricuspid Valve Normal tricuspid valve. Mild (1+) tricuspid valve insufficiency. Pulmonary artery systolic pressure is 33 mmHg. Aortic Valve Trisinus/trileaflet aortic valve. Peak aortic valve gradient 37 mmHg. Mean aortic valve gradient 22 mmHg. Mild aortic stenosis. Mild (1+) aortic valve insufficiency. Pulmonic Valve Normal pulmonic valve. Great Vessels Normal aortic root. The pulmonary artery is normal size. Normal inferior vena cava. Pericardium/Pleural No pericardial effusion. MMode/2D Measurements & Calculations LVIDd: 4.5 cm IVSd: 1.2 cm LVOT diam: 2.0 cm LVIDs: 3.5 cm LVPWd: 1.3 cm LVOT area: 3.2 cm2 FS: 21.3 % Ao root diam: 3.5 cm LAV(MOD-bp): 137.3 ml LVAd ap4: 22.4 cm2 LAV(MOD-bp) Indexed: 68.3 ml/m2 LVLd ap4: 7.6 cm LAV(MOD-sp2): 133.6 ml EDV(MOD-sp4): 59.8 ml LAV(MOD-sp4): 130.5 ml EDV(sp4-el): 55.7 ml LVAs ap4: 16.7 cm2 LVLs ap4: 7.2 cm ESV(MOD-sp4): 32.9 ml ESV(sp4-el): 32.6 ml EF(MOD-sp4): 44.9 % EF(sp4-el): 41.4 % SV(MOD-sp4): 26.8 ml SV(MOD-sp2): 29.4 ml LVAd ap2: 23.9 cm2 LVLd ap2: 7.5 cm EDV(MOD-sp2): 66.8 ml EDV(sp2-el): 65.0 ml LVAs ap2: 17.0 cm2 LVLs ap2: 6.8 cm ESV(MOD-sp2): 37.4 ml ESV(sp2-el): 35.8 ml EF(MOD-sp2): 44.0 % SV(sp4-el): 23.1 ml LA A4 area: 35.1 cm2 LA dimension(2D): 6.1 cm TAPSE: 2.0 cm RA A4 area: 45.2 cm2 Doppler Measurements & Calculations MV E max deep: 125.0 cm/sec Ao V2 max: 304.3 cm/sec AI max deep: 376.4 cm/sec Ao max P.1 mmHg AI max P.7 mmHg Ao V2 mean: 226.9 cm/sec AI dec slope: 238.9 cm/sec2 Ao mean P.3 mmHg AI P1/2t: 461.5 msec Ao V2 VTI: 68.5 cm AV (velocity ratio): 0.33 FINN(I,D): 1.1 cm2 FINN(V,D): 1.1 cm2 LV V1 max: 103.2 cm/sec SV(LVOT): 72.0 ml PA V2 max: 99.5 cm/sec LV V1 max P.2 mmHg PA V2 mean: 61.3 cm/sec LV V1 mean P.4 mmHg PA V2 VTI: 17.8 cm LV V1 mean: 73.3 cm/sec LV V1 VTI: 22.3 cm PI end-d deep: 130.7 cm/sec TR max deep: 267.1 cm/sec TR max P.5 mmHg ECHO/Echo Complete Interpretation Summary Normal LV size. Moderately dilated right ventricle. The left atrium is severely enlarged. The right atrium is severely enlarged. Left ventricular systolic function is lower limits of normal. The left ventricular ejection fraction is 50 %. Mean aortic valve gradient 22 mmHg. Mild aortic stenosis. Ordering Physician: Bailey Topete Referring Physician: Davis Lopez Performed By: Sara Chavez RDCS, RVT
== END | disposition home or self-care (01) ==
LOC: CVS 13:35
PROVIDERS: PCP Family Medicine; Referring Provider Nurse Practitioner Gerontology; Visit Provider Nurse Practitioner Gerontology
DX: R06.09 Other forms of dyspnea (principal)
CPT/HCPCS: 93306

== ENCOUNTER → 2024-06-23 | Outpatient (CLI) | payer MEDICARE, OTHER, SELFPAY ==
[2019-12-31 09:04] VITALS: BMI 30.9
--- NOTE | 2024-06-23 12:04 | RAD_ITS ---
STUDY: X-RAY CHEST REASON FOR EXAM: Female, 84 years old. Shortness of breath. History of congestive failure. TECHNIQUE: Frontal and lateral views of the chest on 3 images. COMPARISON: April 06, 2023 FINDINGS: Mild hyperinflation. There is no demonstrated pleural abnormality. Stable marked cardiomegaly with sternotomy wires and dual lead cardiac pacer. Normal mediastinum and linda. Normal visualized pulmonary arteries. Aortic tortuosity with calcification unchanged. Diffuse thoracic osteopenia with multiple anterior wedge compression deformities, age indeterminate. Diffuse mild spondylosis. Normal visualized ribs, clavicles, and shoulders. No abnormality of the visualized soft tissue structures of the upper abdomen. RAD/Chest PA and Lateral IMPRESSION: Stable cardiomegaly with hyperinflation. No active or acute cardiopulmonary disease. Electronically Signed: Genaro Wagner MD at 12:26 EDT ,
[2024-06-23 15:19] LABS: Absolute Lymphocyte Count 1.21 X10^3/uL (0.83-4.51); Absolute Neutrophil Count 3.5 X10^3/uL (2.0-7.7); Basophil# 0.03 X10^3/uL; Basophil% 0.5 % (0-1); Eosinophil# 0.17 X10^3/uL; Eosinophils% 2.9 % (0-5); Hematocrit 35.4 % (37-47); Hemoglobin 11.1 g/dL (12.0-15.0); Lymphocyte # 1.21 X10^3/ul (0.83-4.51); Lymphocyte % 20.6 % (19-41); Mean Corp Hgb Conc 31.4 g/dL (32-36); Mean Corpuscular Hgb 30.7 pg (27.0-32.0); Mean Corpuscular Volume 97.8 fL (81-99); Mean Platelet Vol. 10.9 fl (6.2-12.0); Monocyte# 0.91 X10^3/uL; Monocyte% 15.5 % (0-10); NRBC Flagged by Analyzer 0 % (0-5); Neutrophil % 59.8 % (47-70); POSITIVE COUNT YES; Platelet Count 93 K/mm3 (150-450); RBC Distribution Width SD 54.2 fl (35.1-43.9); Red Blood Count 3.62 M/mm3 (4.2-5.4); White Blood Count 5.9 K/mm3 (4.4-11.0)
[2024-06-23 15:50] LABS: BNP,B-Type NATRIURETIC PEPTIDE 310.7 pg/mL (0-100)
[2024-06-23 16:29] LABS: AST(SGOT) 26 U/L (15-37); Alanine Aminotransfer ALT/SGPT 19 U/L (13-56); Albumin, Serum 3.7 g/dL (3.2-5.0); Alkaline Phosphatase 63 U/L (45-117); Anion Gap 9 (5-15); BUN 18 mg/dL (7-18); BUN/Creat Ratio 17.5 RATIO (10-20); Calcium,Total 9.5 mg/dL (8.5-10.1); Chloride 105 mmol/L (98-107); Creatinine, Serum 1.03 mg/dL (0.55-1.02); EST Glomerular Filtration Rate 54 mL/min (>60); Est Glom Filt Rate - Afr Amer 66 mL/min (>60); Globulin 3.6 g/dL (2.2-4.2); Glucose 99 mg/dL (74-106); Potassium 4.2 mmol/L (3.5-5.1); Protein, Total 7.3 g/dL (6.4-8.2); Sodium Level 139 mmol/L (136-145)
== END | disposition home or self-care (01) ==
PROVIDERS: PCP Nurse Practitioner Family; Referring Provider Nurse Practitioner Family; Visit Provider Nurse Practitioner Family
DX: R06.02 Shortness of breath (principal); I50.9 Heart failure, unspecified
CPT/HCPCS: 36415; 71046; 80053; 83880; 85025

== ENCOUNTER → 2024-07-18 | Outpatient (CLI) | payer MEDICARE, OTHER, SELFPAY ==
[2019-12-31 09:04] VITALS: BMI 30.9
[2024-07-18 12:23] LABS: Absolute Lymphocyte Count 0.93 X10^3/uL (0.83-4.51); Absolute Neutrophil Count 3.7 X10^3/uL (2.0-7.7); Basophil# 0.04 X10^3/uL; Basophil% 0.7 % (0-1); Eosinophil# 0.21 X10^3/uL; Eosinophils% 3.6 % (0-5); Hematocrit 38.2 % (37-47); Hemoglobin 12.1 g/dL (12.0-15.0); Lymphocyte # 0.93 X10^3/ul (0.83-4.51); Mean Corp Hgb Conc 31.7 g/dL (32-36); Mean Corpuscular Hgb 30.6 pg (27.0-32.0); Mean Corpuscular Volume 96.7 fL (81-99); Mean Platelet Vol. 10.4 fl (6.2-12.0); Monocyte# 0.85 X10^3/uL; Monocyte% 14.6 % (0-10); NRBC Flagged by Analyzer 0 % (0-5); Neutrophil # 3.73 X10^3/uL (2.7-7.7); Neutrophil % 64.2 % (47-70); Platelet Count 109 K/mm3 (150-450); RBC Distribution Width CV 14.7 % (11.6-14.6); RBC Distribution Width SD 52.8 fl (35.1-43.9); Red Blood Count 3.95 M/mm3 (4.2-5.4); White Blood Count 5.8 K/mm3 (4.4-11.0)
[2024-07-18 12:41] LABS: Anion Gap 4 (5-15); BUN 13 mg/dL (7-18); Calcium,Total 9.2 mg/dL (8.5-10.1); Chloride 107 mmol/L (98-107); EST Glomerular Filtration Rate 56 mL/min (>60); Est Glom Filt Rate - Afr Amer 68 mL/min (>60); Glucose 127 mg/dL (74-106); Potassium 3.5 mmol/L (3.5-5.1); Sodium Level 140 mmol/L (136-145)
== END | disposition home or self-care (01) ==
LOC: LAB 11:41
PROVIDERS: PCP Nurse Practitioner Family; Referring Provider Nurse Practitioner Gerontology; Visit Provider Nurse Practitioner Gerontology
DX: R06.09 Other forms of dyspnea (principal)
CPT/HCPCS: 36415; 80048; 83880; 85025

== ENCOUNTER → 2024-07-28 | Outpatient (CLI) | payer MEDICARE, OTHER, SELFPAY ==
[2019-12-31 09:04] VITALS: BMI 30.9
--- NOTE | 2024-07-28 15:00 | STRESSREP ---
Stress Test Report Pharmacologic myocardial perfusion stress test. 84-year-old lady with a history of chest pain Resting EKG demonstrates atrial fibrillation with a ventricular paced rhythm with a rate of 70 bpm. Resting blood pressure is 158/89 mmHg. 0.4 mg of regadenoson was infused per usual protocol followed by rapid intravenous saline flush injection. Continuous EKG monitoring was performed. The maximum heart rate was 75 bpm which was 54% of max impacted heart rate the maximum workload was 1 metabolic equivalent. At rest there were no ST or T wave changes noted to suggest ischemia and at peak infusion nonspecific ST changes were noted which did not meet the criteria for ischemia. No clinical angina is noted. The final blood pressure was 134/68 mmHg. Myocardial perfusion protocol. 11 mCi of technetium 99m sestamibi was injected at rest. 0.4 mg of regadenoson was infused per usual protocol. At peak infusion 35.5 mCi of technetium 99m sestamibi was injected stress images were obtained stress and rest images were reconstructed and compared in the short axis vertical long and horizontal long axis. Gated images were also obtained. Perfusion SPECT analysis: Review of the stress images demonstrate normal uptake of tracer noted in all areas of the myocardium. The resting images similar demonstrated normal uptake of tracer noted in all areas of the myocardium. No areas of reversibility are noted to suggest ischemia and no previous infarct is noted. Gated SPECT analysis: The gated ejection fraction is 63%. Conclusion: Normal pharmacologic myocardial perfusion stress test. Preserved ejection fraction.
== END | disposition home or self-care (01) ==
LOC: CVS 06:47
PROVIDERS: PCP Nurse Practitioner Family; Referring Provider Nurse Practitioner Gerontology; Visit Provider Nurse Practitioner Gerontology
DX: R06.09 Other forms of dyspnea (principal); Z95.1 Presence of aortocoronary bypass graft; Z95.5 Presence of coronary angioplasty implant and graft
CPT/HCPCS: 78452; 93017; A9500; A4216; J2785

== ENCOUNTER → 2024-08-06 | Outpatient (CLI) | payer MEDICARE, OTHER, SELFPAY ==
[2019-12-31 09:04] VITALS: BMI 30.9
[2024-08-06 15:52] LABS: Anion Gap 7 (5-15); BUN 20 mg/dL (7-18); BUN/Creat Ratio 18.2 RATIO (10-20); Chloride 105 mmol/L (98-107); EST Glomerular Filtration Rate 50 mL/min (>60); Est Glom Filt Rate - Afr Amer 61 mL/min (>60); Glucose 132 mg/dL (74-106); Potassium 3.8 mmol/L (3.5-5.1); Sodium Level 140 mmol/L (136-145)
== END | disposition home or self-care (01) ==
PROVIDERS: PCP Nurse Practitioner Family; Referring Provider Nurse Practitioner Gerontology; Visit Provider Nurse Practitioner Gerontology
DX: R06.09 Other forms of dyspnea (principal)
CPT/HCPCS: 36415; 80048

== ENCOUNTER → 2024-08-28 | Outpatient (CLI) | payer MEDICARE, OTHER, SELFPAY ==
[2019-12-31 09:04] VITALS: BMI 30.9
[2024-08-28 13:00] LABS: BNP,B-Type NATRIURETIC PEPTIDE 255.3 pg/mL (0-100)
[2024-08-28 13:01] LABS: Anion Gap 6 (5-15); BUN 27 mg/dL (7-18); BUN/Creat Ratio 26.7 RATIO (10-20); Calcium,Total 9.6 mg/dL (8.5-10.1); Chloride 105 mmol/L (98-107); Creatinine, Serum 1.01 mg/dL (0.55-1.02); EST Glomerular Filtration Rate 56 mL/min (>60); Est Glom Filt Rate - Afr Amer 67 mL/min (>60); Glucose 91 mg/dL (74-106); Potassium 4.5 mmol/L (3.5-5.1); Sodium Level 139 mmol/L (136-145)
[2024-08-28 13:09] LABS: Absolute Neutrophil Count 3.7 X10^3/uL (2.0-7.7); Basophil# 0.04 X10^3/uL; Basophil% 0.6 % (0-1); Eosinophils% 1.5 % (0-5); Hematocrit 42.7 % (37-47); Hemoglobin 13.9 g/dL (12.0-15.0); Lymphocyte % 23.2 % (19-41); Mean Corp Hgb Conc 32.6 g/dL (32-36); Mean Corpuscular Hgb 31.2 pg (27.0-32.0); Mean Corpuscular Volume 95.7 fL (81-99); Mean Platelet Vol. 10.7 fl (6.2-12.0); Monocyte# 1.08 X10^3/uL; Monocyte% 16.7 % (0-10); NRBC Flagged by Analyzer 0 % (0-5); Neutrophil # 3.68 X10^3/uL (2.7-7.7); Neutrophil % 57.1 % (47-70); Platelet Count 163 K/mm3 (150-450); RBC Distribution Width CV 14.6 % (11.6-14.6); RBC Distribution Width SD 51.3 fl (35.1-43.9); Red Blood Count 4.46 M/mm3 (4.2-5.4); White Blood Count 6.5 K/mm3 (4.4-11.0)
== END | disposition home or self-care (01) ==
PROVIDERS: PCP Nurse Practitioner Family; Referring Provider Nurse Practitioner Gerontology; Visit Provider Nurse Practitioner Gerontology
DX: R06.09 Other forms of dyspnea (principal)
CPT/HCPCS: 36415; 80048; 83880; 85025

== ENCOUNTER → 2024-09-03 | Outpatient (CLI) | payer MEDICARE, OTHER, SELFPAY ==
[2019-12-31 09:04] VITALS: BMI 30.9
== END | disposition home or self-care (01) ==
LOC: PSN 09:17
PROVIDERS: PCP Nurse Practitioner Family; Referring Provider Nurse Practitioner Gerontology; Visit Provider Nurse Practitioner Gerontology
DX: R06.09 Other forms of dyspnea (principal)
CPT/HCPCS: 94060; 94726; 94729

== ENCOUNTER → 2025-05-08 | Outpatient (CLI) | payer MEDICARE, OTHER, SELFPAY ==
[2019-12-31 09:04] VITALS: BMI 30.9
[2025-05-08 09:45] VITALS: PULSE 70; PULSE 71; PULSE 73; PULSE 74; PULSE 78; PULSE 86; O2SAT 95; O2SAT 97
--- NOTE | 2025-05-08 10:10 | CPS ---
Pt arrived to walk in wheelchair with cane. Pt started walk using cane with an SHIPWRIGHT HELPER pushing wheelchair behind and this SHIPWRIGHT HELPER walking alongside pt. At 2 minutes 50 seconds into walk pt stumbled and stated she felt like her hip was going to give out. Pt was seated in wheelchair. Pt denied that the rest was needed for any S.O.B. Pt felt she was able to start walking again at 4 minutes 35 seconds into walk. Pt finished walk without incident.
--- NOTE | 2025-05-12 09:33 | WT_ITS ---
PSN 6 Minute Walk Test 6 Minute Walk Test 6 Minute Walk Test: 6 Minute Walk Test PSN:6-Minute Walk Test Start: 05/08/25 10:07 Freq: Status: Active Protocol: [id number] Document 05/08/25 09:45 AEH (Rec: 05/08/25 10:17 AEH [id number]) 6 Minute Walk Test Date Performed 05/08/25 Time Performed 09:45 Height 5 ft 8 in Weight: 195 lb Weight in Pounds 195.[address]: Yonathan Assistive device Cane used: Pre-test Oxygen Delivery Room Air Method Pulse Ox (%) 95 Pulse Rate (60-100 70 beats/min) Dyspnea Jaspal Scale ( 0 0-10) Exertion Jaspal Scale 6 (6-20) 1st minute Oxygen Delivery Room Air Method Pulse Ox (%) 97 Pulse Rate (60-100 74 beats/min) 2nd minute Oxygen Delivery Room Air Method Pulse Ox (%) 97 Pulse Rate (60-100 78 beats/min) 3rd minute Oxygen Delivery Room Air Method Number of Rests 1 Taken 4th minute Oxygen Delivery Room Air Method Number of Rests 1 Taken 5th minute Oxygen Delivery Room Air Method Pulse Ox (%) 97 Pulse Rate (60-100 73 beats/min) 6th minute Oxygen Delivery Room Air Method Pulse Ox (%) 97 Pulse Rate (60-100 86 beats/min) Dyspnea Jaspal Scale ( 1 0-10) Exertion Jaspal Scale 13 (6-20) Post-test Oxygen Delivery Room Air Method Pulse Ox (%) 97 Pulse Rate (60-100 71 beats/min) Full Laps Walked 3 Partial Lap, Number 5 of Tiles Walked Total Distance 182 Walked (ft) 05/08/25 10:10 Cardiopulmonary Services by Eleonora Lopez Pt arrived to walk in wheelchair with cane. Pt started walk using cane with an PICKING SUPERVISOR pushing wheelchair behind and this PICKING SUPERVISOR walking alongside pt. At 2 minutes 50 seconds into walk pt stumbled and stated she felt like her hip was going to give out. Pt was seated in wheelchair. Pt denied that the rest was needed for any S.O.B. Pt felt she was able to start walking again at 4 minutes 35 seconds into walk. Pt finished walk without incident. Initialized on 05/08/25 10:10 - END OF NOTE Interpretation Interpretation: The patient ambulated 182 feet over the course of 6 minutes beginning on room air with use of a cane. Pretesting oxygen saturation was noted to be 95% on room air. With ambulation, the rose oxygen saturation was 97%. Although there was evidence of impaired walk distance, there was no significant exertional oxygen desaturation. Recommendations Recommendations: There is no indication for the use of supplemental oxygen at this time.
== END | disposition home or self-care (01) ==
LOC: PSN 09:31
PROVIDERS: PCP Nurse Practitioner Family; Referring Provider Nurse Practitioner Acute Care; Visit Provider Nurse Practitioner Acute Care
DX: R06.09 Other forms of dyspnea (principal)
CPT/HCPCS: 94618; 94762

== ENCOUNTER → 2025-05-12 | Outpatient (CLI) | payer MEDICARE, OTHER, SELFPAY ==
[2019-12-31 09:04] VITALS: BMI 30.9
--- NOTE | 2025-05-12 15:44 | RAD_ITS ---
EXAM: XR Lumbosacral Spine, 4 or 5 Views CLINICAL INDICATION: RULE OUT FRACTURE TECHNIQUE: Frontal, lateral and bilateral oblique views of the lumbar spine. COMPARISON: No relevant prior studies available. FINDINGS: VERTEBRAE: Moderate compression deformity of L1 vertebral body status post vertebroplasty. Mild endplate degenerative changes of the visualized spine. Moderate disc degeneration of L1-2 L3. Moderate facet arthropathy of L3-S1. Normal alignment. No acute fracture. SACRUM/COCCYX: Unremarkable as visualized. No acute fracture. DISC SPACES: See above. SOFT TISSUES: Unremarkable. VASCULATURE: Scattered calcified atherosclerotic disease of aorta. RAD/L/S Spine Min 4 Views IMPRESSION: 1. No acute fracture. 2. Degenerative changes as above. 3. Postoperative changes as above. 4. If symptoms persist, further evaluation with MRI is recommended. Reading Location: [facility]
--- NOTE | 2025-05-12 15:44 | RAD_ITS ---
EXAM: XR Lumbosacral Spine, 4 or 5 Views CLINICAL INDICATION: RULE OUT FRACTURE TECHNIQUE: Frontal, lateral and bilateral oblique views of the lumbar spine. COMPARISON: No relevant prior studies available. FINDINGS: VERTEBRAE: Moderate compression deformity of L1 vertebral body status post vertebroplasty. Mild endplate degenerative changes of the visualized spine. Moderate disc degeneration of L1-2 L3. Moderate facet arthropathy of L3-S1. Normal alignment. No acute fracture. SACRUM/COCCYX: Unremarkable as visualized. No acute fracture. DISC SPACES: See above. SOFT TISSUES: Unremarkable. VASCULATURE: Scattered calcified atherosclerotic disease of aorta. RAD/L/S Spine Min 4 Views IMPRESSION: 1. No acute fracture. 2. Degenerative changes as above. 3. Postoperative changes as above. 4. If symptoms persist, further evaluation with MRI is recommended. Reading Location[facility]
== END | disposition home or self-care (01) ==
LOC: MTRAD 15:42
PROVIDERS: PCP Nurse Practitioner Family; Referring Provider Nurse Practitioner Family; Visit Provider Nurse Practitioner Family
DX: M54.16 Radiculopathy, lumbar region (principal)
CPT/HCPCS: 72110

== ENCOUNTER → 2025-06-22 | Outpatient (CLI) | payer MEDICARE, OTHER, SELFPAY ==
[2019-12-31 09:04] VITALS: BMI 30.9
--- NOTE | 2025-06-22 12:48 | ECHOD_ITS ---
Reason For Study : Procedure This was a 2D Doppler, Color Flow transthoracic echocardiogram. Exam performed in department. Left Ventricle Normal LV size. Moderate concentric left ventricular hypertrophy. D shaped septum in systole and diastole. The left ventricular ejection fraction is 55 %. No regional wall motion abnormalities noted. Right Ventricle ICD or pacer leads identified within the right ventricle. Severely dilated right ventricle. Moderately severe global right ventricular systolic dysfunction. Atria The left atrium is severely enlarged. Very severely enlarged. Mitral Valve There is moderate mitral annular calcification. Tricuspid Valve Normal tricuspid valve. Moderate (2+) tricuspid valve insufficiency. Pulmonary pressures are underestimated due to the RV dilatation and hypofunction. Aortic Valve Trisinus/trileaflet aortic valve. Moderate focal aortic valve calcification. Peak aortic valve gradient 43 mmHg. Mean aortic valve gradient 26 mmHg. Mild to moderate aortic stenosis. Mild (1+) aortic valve insufficiency. Pulmonic Valve Normal pulmonic valve. Great Vessels Normal aortic root. The pulmonary artery is normal size. The inferior vena cava is dilated. IVC systolic flow reversal. No collapse of the inferior vena cava. Pericardium/Pleural No pericardial effusion. MMode/2D Measurements & Calculations LVIDd: 4.7 cm IVSd: 1.5 cm LVOT diam: 2.0 cm LVIDs: 3.1 cm LVPWd: 1.3 cm LVOT area: 3.0 cm2 RVDd: 6.8 cm FS: 33.8 % Ao root diam: 3.7 cm LAV(MOD-bp): 109.4 ml LVAd ap4: 19.9 cm2 LAV(MOD-bp) Indexed: 54.3 ml/m2 LVLd ap4: 6.3 cm LAV(MOD-sp2): 112.7 ml EDV(MOD-sp4): 57.2 ml LAV(MOD-sp4): 95.8 ml EDV(sp4-el): 53.1 ml LVAs ap4: 13.1 cm2 LVLs ap4: 6.5 cm ESV(MOD-sp4): 21.7 ml ESV(sp4-el): 22.3 ml EF(MOD-sp4): 62.0 % EF(sp4-el): 58.0 % SV(MOD-sp4): 35.5 ml SV(sp4-el): 30.8 ml Ao sinus diam: 2.8 cm SI(MOD-sp4): 17.6 ml/m2 Ao ST Junction: 2.2 cm Aortic Valve Planimetry: 0.78 cm2 LA A4 area: 30.2 cm2 LA dimension(2D): 6.2 cm TAPSE: 1.7 cm RA A4 area: 53.8 cm2 Time Measurements MV dec time: 0.20 sec Doppler Measurements & Calculations MV E max umer: 120.0 cm/sec Lat Peak E' Umer: 12.8 cm/sec Med Peak E' Umer: 9.3 cm/sec MV A max umer: 36.5 cm/sec E/E' lat: 9.4 E/E' med: 13.0 MV E/A: 3.3 MV V2 max: 132.7 cm/sec MV P1/2t max umer: 133.7 cm/sec Ao V2 max: 329.3 cm/sec MV max P.0 mmHg MV P1/2t: 74.0 msec Ao max P.4 mmHg MV V2 mean: 64.7 cm/sec MV dec slope: 529.2 cm/sec2 Ao V2 mean: 245.0 cm/sec MV mean P.1 mmHg Ao mean P.5 mmHg MV V2 VTI: 29.6 cm MVA(P1/2t): 3.0 cm2 Ao V2 VTI: 74.1 cm MVA(VTI): 2.0 cm2 AV (velocity ratio): 0.26 FINN(I,D): 0.78 cm2 FINN(V,D): 0.85 cm2 AI max umer: 438.8 cm/sec LV V1 max: 91.9 cm/sec MR max umer: 566.8 cm/sec AI max P.1 mmHg LV V1 max P.4 mmHg MR max P.5 mmHg LV V1 mean P.0 mmHg MR mean umer: 384.1 cm/sec AI dec slope: 269.0 cm/sec2 LV V1 mean: 66.3 cm/sec MR mean P.1 mmHg AI P1/2t: 477.9 msec LV V1 VTI: 19.0 cm MR VTI: 170.7 cm SV(LVOT): 57.7 ml PA V2 max: 97.9 cm/sec PI dec slope: 313.1 cm/sec2 TR max umer: 235.5 cm/sec TR max P.2 mmHg ECHO/Echo Complete Interpretation Summary Normal LV size. Moderate concentric left ventricular hypertrophy. The left ventricular ejection fraction is 55 %. Severely dilated right ventricle. D shaped septum in systole and diastole. Moderate (2+) tricuspid valve insufficiency. Mild to moderate aortic stenosis. Above findings further similar to the previous echocardiogram. Ordering Physician: Bailey Topete Referring Physician: Bailey Topete Performed By: Jameson Light RCS
== END | disposition home or self-care (01) ==
LOC: CVS 12:48
PROVIDERS: PCP Nurse Practitioner Family; Referring Provider Nurse Practitioner Gerontology; Visit Provider Nurse Practitioner Gerontology
DX: I35.0 Nonrheumatic aortic (valve) stenosis (principal); I07.1 Rheumatic tricuspid insufficiency
CPT/HCPCS: 93306

== ENCOUNTER 2025-07-17 11:00 | Outpatient (RCR) | payer MEDICARE, OTHER, SELFPAY ==
[2019-12-31 09:04] VITALS: BMI 30.9
--- NOTE | 2025-06-19 07:14 | HP.PTEVAL_ITS ---
Patient's Visit Information Visit Information Visit Information: KIM CAZARES is a 85 year old F referred to Physical Therapy by AMAYA Richard with a diagnosis of Lumbar stenosis. Date of Evaluation: 06/17/25 Physical Therapist: Vj Galdamez, PT, ATC Visit Plan Frequency: 2x /Week Duration: 4-6 Weeks Plan: SKTC/DKTC, L/S stab ex's, balance and proprio, nustep, and HEP Subjective Subjective: Pt reports she has had LBP for several months. Pt notes she has had B hip partial replacements in the past and notes this may have caused some of her pain. Pt reports her LBP will extend to her L gluteal region on occasion. Pt reports she is unable to stand or ambulate for greater than 5 min secondary to LBP. Pt reports she used to exercise consistently here, but ever since she has gone through all of these conditions, she is very weak and knows she needs therapy. Pt reports she is able to take her baths I, but is extremely tired after that. Pt reports the same holds true for making her bed. Pt reports she has also fallen a lot lately, which she would really like to prevent in the future. Pt has had xrays shich revealed degenerative changes in the L/S.0/10 pain while sitting here at rest, 8/10 pain at worst. Pain LBP: Pain Intensity (Out of 10): 0 Pain Intensity Range: 8 Objective Objective: TU sec Neuro: B LE sensation is WNL to light touch MMT: B LE's are grossly 4-/5 throughout Gait: Pt is able to ambulate 170 feet until needing to rest secondary to fatigue Balance/Special Test Scores Oswestry Low Back Score: 9 Goals Goal 1:: Decrease LBP x 50% to aid with standing tolerance Goal Time Frame: 4-6 Weeks Goal 2:: Pt will perform tug in under 20 sec to aid with community efficiency Goal Time Frame: 4-6 Weeks Goal 3:: Pt will be able to ambulate greater than 600 feet until needing to rest secondary to LBP Goal Time Frame: 4-6 Weeks Goal 4:: I with HEP Rehabilitation Potential Physical Therapy Diagnosis: Pt has LBP, L LE radiculopathy, and difficulty with ambulation secondary to degenerative changes in L/S Rehabilitation Potential: Good Anticipated Interventions Patient/Client Instruction: Educate patient on: Condition and Plan of Care For the Purpose of:: To improve self management Therapeutic Exercise to Include: Strength training, Endurance training, Balance training, Gait and locomotor training and Dynamic Lumbar Stabilization For the Purpose of:: To decrease pain, To increase ROM and To improve muscle performance and motor function Text: Thank you for the opportunity to evaluate your patient. For Medicare and Medicare HMO plans, please review the plan of care and approve it. It will need to be FAXED BACK to us at [phone] for Medicare purposes. For Medicare only, by signing this I certify the plan of care. Please let me know if there are questions or concerns regarding this plan of care. Physician Signature: Date:
== END 2025-07-17 19:00 | disposition home or self-care (01) ==
LOC: PT 11:00
PROVIDERS: PCP Nurse Practitioner Family; Referring Provider Physician Assistant Surgical; Visit Provider Physician Assistant Surgical
DX: M48.061 Spinal stenosis, lumbar region without neurogenic claudication (principal); M54.16 Radiculopathy, lumbar region; M54.42 Lumbago with sciatica, left side
CPT/HCPCS: 97110; 97161

== ENCOUNTER 2025-07-22 17:10 | Emergency (ER) | payer MEDICARE, OTHER, SELFPAY ==
[2019-12-31 09:04] VITALS: BMI 30.9
[2025-07-22 17:11] VITALS: PULSE 71; RESP 16; TEMP 36.4; O2SAT 96; BMI 28.1
--- NOTE | 2025-07-22 18:07 | CT_ITS ---
PROCEDURE: BRAIN/HEAD WITHOUT CONTRAST 07/22/2025 REASON FOR EXAM: HEAD TRAUMA ON BLOOD TGHINNER TECHNIQUE: Procedure Code: CTBR Modality: CT Procedure: BRAIN/HEAD WITHOUT CONTRAST Coronal and Sagittal reconstruction series were provided. One or more dose reduction techniques were used (e.g., Automated exposure control, adjustment of the mA and/or kV according to patient size, use of iterative reconstruction technique. RADIATION DOSE SUMMARY: Not provided FINDINGS: The bony calvarium appears intact. The paranasal sinuses are clear. There is a mild degree of cerebral atrophy and there is left parietal soft tissue swelling. There is no intracranial edema. Small amount of posttraumatic subarachnoid blood in the anterior aspect of the sylvian fissure on the right. Small amount of probable post traumatic subarachnoid blood along the floor of the temporal occipital lobe posteriorly on coronal image 61 CT/Brain/Head without Contrast IMPRESSION: Posttraumatic subarachnoid hemorrhage. A reading will be called to the ER. Reading Location[facility]
--- NOTE | 2025-07-22 18:07 | CT_ITS ---
PROCEDURE: SPINE CERVICAL WITHOUT CONTRAS 07/22/2025 REASON FOR EXAM: TRAUMA TECHNIQUE: Procedure Code: CTSPC Modality: CT Procedure: SPINE CERVICAL WITHOUT CONTRAS Coronal and Sagittal reconstruction series were provided. One or more dose reduction techniques were used (e.g., Automated exposure control, adjustment of the mA and/or kV according to patient size, use of iterative reconstruction technique. RADIATION DOSE SUMMARY: Not provided FINDINGS: Normal cervical vertebral body height without compression deformity. Facet arthrosis without facet fracture. Degenerative changes are present at C1-C2. Odontoid process, C1 vertebra and C2 vertebra appear intact. No visible soft tissue mass. Prominent vascular calcification. Axial images demonstrate no fractures of the facets, pedicles or lamina. Multilevel facet hypertrophy noted. CT/Spine Cervical without Contras IMPRESSION: Degenerative changes. No fracture. Reading Location: [facility]
[2025-07-22 18:10] VITALS: BP 119/105; PULSE 70; O2SAT 95
--- NOTE | 2025-07-22 18:15 | CT_ITS ---
PROCEDURE: SINUS/FACIAL BONE 07/22/2025 REASON FOR EXAM: R-JAW PAIN POST FALL TECHNIQUE: Procedure Code: CTSI Modality: CT Procedure: SINUS/FACIAL BONE Coronal and Sagittal reconstruction series were provided. One or more dose reduction techniques were used (e.g., Automated exposure control, adjustment of the mA and/or kV according to patient size, use of iterative reconstruction technique). RADIATION DOSE SUMMARY: CTDlvol: 94 mGy DLP: 2002 mGycm FINDINGS: Soft tissue windows demonstrate symmetric appearance of the orbits. The imaged portions of the brain are unremarkable. Normal mandibular body, mandibular rami and mandibular condyles. Normal zygomatic arches. Normal nasal bones. Medial and lateral orbital pickard maintained. Mastoids and middle ear cavities intact. On coronal images, normal nasal bones and orbital floor. CT/Sinus/Facial Bone IMPRESSION: Negative for maxillofacial fracture. The sinuses are clear. Reading Location: [facility]
--- NOTE | 2025-07-22 18:18 | EDS_ITS ---
HPI HPI - Fall History of Present Illness Chief Complaint: Fall Informant: patient and family Occured/Mechanism Occurred: Today Mechanism/Context: Yes trip Fall down steps #: Last 3 straps: No garage. He believes she is on the floor. Usually ambulates: Without assistance Pain/Injury Pain Location: head, neck and upper extremity Quality of Pain: Sharp Current Severity: Moderate Maximum Severity: Moderate Associated Symptoms Associated Symptoms: Negative for Parasthesias, Weakness, Loss of function, Inability to ambulate, Loss of consciousness or Amnesia Narrative Narrative: 85-year-old female lives at home history of pulmonary emboli prior hip fracture, CHF, cardiomegaly on the blood thinner Eliquis. Was going down her steps into her garage tripped and fell within the last 3 steps hitting her head on the floor. Denies any LOC see. Plan scalp laceration, right jaw pain, neck pain she is in a c-collar. Mild left shoulder pain. Denies any LOC. Oketo fine prior to the fall. 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 Contact dermatitis due to [place] Mild aortic stenosis COVID-19 (~01/2022) SARS-CoV-2 positive Longstanding persistent atrial fibrillation Asthma-COPD overlap syndrome Hypothyroidism Nonrheumatic aortic (valve) stenosis Chronic diastolic (congestive) heart failure History of pulmonary embolism Non-ischemic cardiomyopathy Carotid bruit Bilateral renal artery stenosis Osteoarthritis COPD (chronic obstructive pulmonary disease) Essential (primary) hypertension Atherosclerosis of coronary artery of [place] heart without angina pectoris Complete heart block HLD (hyperlipidemia) Home Medications ?Medication ?Instructions ?Recorded ?Last Taken ?Type aspirin 81 mg tablet,delayed 81 mg PO QHS afib 4 06/20/19 History release albuterol sulfate 90 mcg/actuation 2 puff inhalation Q 6H PRN 09/01/20 Unknown Rx aerosol inhaler shortness of breath or wheez ing #8.5 grams atorvastatin 40 mg tablet 40 mg PO QHS cholesterol #90 tabs 09/15/24 Unknown Rx metoprolol tartrate 25 mg tablet 12.5 mg (1/2 x 25 mg) PO BID for 10/08/24 Unknown Rx blood pressure #90 TABLETS potassium chloride 20 mEq 20 meq PO DAILY #90 tabs 11/22 Unknown Rx tablet,extended release apixaban 5 mg tablet (Eliquis) 5 mg PO BID Faxing to [facility] 03/25/25 Unknown Rx [facility]180 tabs magnesium oxide 400 mg PO QDAY 04/27/25 Unkn own History oxybutynin chloride 5 mg 5 mg PO QDAY 04/27/25 Unknow n History tablet,extended release 24 hr furosemide 40 mg tablet (Lasix) 40 mg PO QAM #90 tabs 05/19/25 Unknown Rx levothyroxine 125 mcg tablet 125 mcg PO QDAY 05/28/25 Unknown History (Synthroid) spironolactone 25 mg tablet 25 mg PO QDAY Pt never rec eived RX 05/28/25 Unknown History sent on 04/20/25 sertraline 100 mg tablet 150 mg PO DAILY 06/19/25 Unk nown History fluticasone furoate 200 1 inh inhalation QDAY #3 ea 06/23/25 Unknown Rx mcg/actuation blister powder for inhalation (Arnuity Ellipta) nitrofurantoin 100 mg PO BID #10 caps 07/21 Unknown Rx monohydrate/macrocrystals 100 mg capsule (Macrobid) Allergy/AdvReac Type Severity Reaction Status Date / Time No Known Allergies Allergy Verified 07/22/25 17:10 Family History Father Myocardial infarction Mother Cancer breast Sister Dementia Sister Colon cancer Surgical History History of carpal tunnel surgery of left wrist History of right hip replacement H/O coronary artery bypass surgery (08/28/19) History of left heart catheterization (06/20/19) Hx of atrioventricular node ablation (08/02/12) History of stent insertion of renal artery (03/22/11) History of radiofrequency ablation procedure for cardiac arrhythmia (10/15/09) History of open heart surgery (10/15/09) History of arthroscopic knee surgery History of carpal tunnel release of both wrists History of appendectomy Presence of cardiac pacemaker (04/29/18) History of coronary artery stent placement (07/23/09) Social History Smoking Status: Former smoker Tobacco: How many years used: 20 how long ago did patient quit smokin, 1ppd second hand exposure: Yes alcohol intake: current alcohol intake frequency: holidays/special occasions only substance use type: does not use caffeine: Yes (occasional) Type: carbonated beverages and coffee ROS ROS ED ROS Narrative Denies recent illness. Constitutional Constitutional ED: Denies chills or fever(s) Eyes Eyes: Denies blurry vision ENT ENT ED: Denies ear pain Cardiovascular Cardiovascular: Denies chest pain or palpitations Respiratory/Chest Respiratory/Chest: Denies cough or dyspnea Gastrointestinal Gastrointestinal: Denies abdominal pain Genitourinary Genitourinary ED: Denies dysuria or hematuria Musculoskeletal Musculoskeletal: Denies arthralgias or back pain Integumentary Denies abscess or Abrasions Neurologic Neurologic: Reports headache(s) Psychiatric Psychiatric: Denies anxiety or depression Endocrine Endocrinology: Denies polydipsia Hematologic/Lymphatic Hematologic/Lymphatic: Reports easy bleeding, easy bruising and other Details: On the blood thinner Eliquis. Allergic/Immunologic Allergic/Immunologic ED: Denies mouth swelling, tongue swelling or urticaria EXAM Physical Exam Narrative Exam Narrative: 85-year-old female sitting upright in bed. C-collar in place. Head dressing soaked with blood. She is awake alert. Answering questions following commands. Vital signs are stable afebrile. Family member present. H EENT exam pupils round reactive light. No obvious facial trauma no swelling. Mild right jaw tenderness but can open close her mouth. She has a head dressing on soaked with blood in the posterior scalp. C-collar in place. Trachea midline. C-spine tenderness. Lungs clear to auscultation bilaterally. Heart regular rhythm rate about 74-6 systolic ejection murmur. Chest wall ribs nontender no crepitus. Abdomen soft nontender normal bowel sounds without peritoneal signs. Pelvic girdle intact. Back nontender no bruising. Spine nontender. Moving all 4 extremities. Has a bruise on the top of her left AC joint. But she can lift both arms above her shoulder. No deformity. No sign of tenderness. 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 Lower extremities nontender no deformity. Dorsi plantarflexion intact. Neurologically she is awake alert. Answer questions following commands. GCS 15. Const Vital Signs: 07/22/25 17:11 07/22/25 17:19 07/22/25 18:10 Temperature 97.6 F L Temperature Source Oral Pulse Rate 71 70 Respiratory Rate 16 Respiratory Effort Normal Non-Labored Blood Pressure 119/105 H Blood Pressure Mean 109 Pulse Ox 96 95 Oxygen Delivery Method Room Air Room Air 07/22/25 19:00 Temperature Temperature Source Pulse Rate 70 Respiratory Rate 16 Respiratory Effort Blood Pressure 119/60 Blood Pressure Mean 79 Pulse Ox 97 Oxygen Delivery Method Room Air Positive well nourished and well developed; Negative for obese, cachectic, contr actures or unkempt General Appearance ED: well developed; Negative for unkempt, cachectic, contractures or NAD Nutritional Appearance: Negative for cachectic or obese HEENT Reports normocephalic HEENT Narrative: Posterior scalp laceration with bloodsoaked dressing. trauma, hematoma and tenderness Eyes EOMs intact bilaterally Neck No full ROM, no lymphadenopathy and supple Neck Narrative: C-collar in place. General: tenderness Chest Wall palpation of chest normal Resp normal respiratory effort, no retractions and clear to auscultation bilaterally Cardio regular rate, regular rhythm, S1 normal heart sound and S2 normal heart sound; Negative for no murmurs Cardio Narrative: 4-6 systolic ejection murmur. GI non-tender, non-distended and no masses Auscultation: normoactive bowel sounds Palpation: soft; Negative for guarding or rebound tenderness present Back/Spine no CVA tenderness Back/Spine Narrative: C-collar in place. General Back: Negative for CVA tenderness Cervical Spine: cervical spine tenderness Lumbar Spine / Lower Back: Negative for lumbar spinal tenderness Neuro oriented x3, CN's II-XII intact bilaterally, moves all extremities, no focal motor deficits and no sensory deficits noted [place] Coma Scale: document GCS findings Spontaneous Obeys Commands Oriented 15 Sensorium / Orientation: alert, oriented to person, oriented to place and oriented to time Motor Exam: strength 5/5 throughout Psych mental status grossly normal and thought process normal Appearance: Negative for unkempt Skin Skin Narrative: Posterior scalp laceration bandaged at this time. Lesions: no lesions Rashes: no rashes Trauma: laceration MDM MDM MDM Narrative Medical decision making narrative: 85-year-old female on the blood thinner Bertin tripped and fell down 3 steps has a scalp laceration, head injury, rule out intracranial bleed to get CAT scans of her head, facial bones and neck. Also left shoulder x-ray. I was notified the CT of her brain shows acute subarachnoid. I will speak to a local trauma center and set up patient for transfer. I will discuss with them if they want her anticoagulation reversed with Kcentra. Patient will be given Kcentra. Arpita Coleman Is excepted the transfer. Have gone over CAT scan results with the patient's sister. She was also given for morphine for pain. Zofran IV. [facility] Also requested a chest x-ray and pelvis x-ray. Ground transfer should be here in under an hour. Repeat exam prior to ambulance transfer around 7:55 PM patient is doing well. She is awake alert. They will be transferring her to the trauma center. History & Record Review Discussion w/independent historian: Patient Additional record(s) reviewed:: Prior inpatient record, Prior outpatient record, Prior ED visit and Prior labs Radiography Chest X-Ray - ED: 1 View, Read by ED Physician, Read by Radiologist, Normal, Lungs, Mediastinum, Bony Structures, No Acute Disease, Chronic Changes and Cardiomegaly Diagnostic Testing: Clinical Impression(s) from Imaging Studies Brain CT 07/22/25 18:07 IMPRESSION: Posttraumatic subarachnoid hemorrhage. A reading will be called to the ER. Reading Location: [facility] Cervical Spine CT 07/22/25 18:07 IMPRESSION: Degenerative changes. No fracture. Reading Location: [facility] Facial/Sinus 07/22/25 18:15 IMPRESSION: Negative for maxillofacial fracture. The sinuses are clear. Reading Location: [facility] Shoulder X-Ray 07/22/25 18:25 IMPRESSION: Degenerative changes as above. Reading Location: [id number] Chest X-Ray 07/22/25 19:08 IMPRESSION: Bibasilar atelectasis. Curvilinear scarring within right middle lung. If there is persistent or worsening respiratory status follow-up chest x-ray is recommended. Reading Location: [id number] Pelvis X-Ray 07/22/25 19:08 IMPRESSION: Intact partially visualized bilateral hip arthroplasties. Reading Location: [facility] CT brain posttraumatic subarachnoid. CT C-spine degenerative changes no fracture. CT facial no obvious fractures. Left shoulder x-ray, 2 views, turbid by myself and radiologist shows degenerative arthritis no fracture. No dislocation. I did discuss x-rays and CAT scan with the patient family. Chest x-ray, portable, single view shows cardiomegaly. Pacemaker defibrillator left. No acute process. Chronic changes. Prior sternotomy with wires. Pelvis x-ray, portable, single view, shows bilateral hip prosthesis. No acute fracture. Interpreted both by myself and the radiologist. Critical Care Time Critical Care Time: Yes Critical care time (excluding procedures): 30-74 minutes, Including time spent:, Discussing w/Patient &/or Family/Auto Driver, Discussing w/Consultants, Arranging Admission or Transfer, Performing Direct Patient Care at Bedside and - (38 minutes) Discharge Plan Triage Chief Complaint: Fall ED Provider: Cj Dumont Dx/Rx/DC Orders Clinical Impression: Fall down steps, Acute intra-cranial hemorrhage, Laceration of scalp, Chronic anticoagulation, Chronic a-fib Prescriptions: No Action albuterol sulfate 90 mcg/actuation HFA aerosol inhaler 2 puff INHALATION Q6H PRN (Reason: shortness of breath or wheezing) Qty: 8.5 2RF sertraline 100 mg tablet 150 mg PO DAILY oxybutynin chloride 5 mg tablet extended release 24hr 5 mg PO QDAY magnesium oxide 400 mg magnesium capsule 400 mg PO QDAY levothyroxine [Synthroid] 125 mcg tablet 125 mcg PO QDAY spironolactone 25 mg tablet 25 mg PO QDAY aspirin 81 MG tablet 81 mg PO QHS atorvastatin 40 mg tablet 40 mg PO QHS Qty: 90 3RF Rx Instructions: 40 mg PO at bedtime metoprolol tartrate 25 mg tablet 12.5 mg PO BID Qty: 90 3RF potassium chloride 20 mEq tablet extended release 20 meq PO DAILY Qty: 90 3RF Eliquis 5 mg tablet 5 mg PO BID MDD Pt phone [phone] Qty: 180 3RF furosemide [Lasix] 40 mg tablet 40 mg PO QAM Qty: 90 3RF Arnuity Ellipta 200 mcg/actuation blister with device 1 inh inhalation QDAY Qty: 3 3RF Rx Instructions: administer at approximately the same time(s) each day nitrofurantoin monohyd/m-cryst [Macrobid] 100 mg capsule 100 mg PO BID Qty: 10 0RF Rx Instructions: must administer with a meal/food Primary Care Provider: Teagan Bosch Referrals: Teagan Bosch NP-C [Primary Care Provider, Family Practice] Print Language: Israeli Disposition Disposition: Acute Care Hospital
--- NOTE | 2025-07-22 18:25 | RAD_ITS ---
EXAM: XR Left Shoulder Complete, 2 or More Views CLINICAL INDICATION: FALL TECHNIQUE: Two or more views of the left shoulder. COMPARISON: No relevant prior studies available. FINDINGS: BONES/JOINTS: Mild degenerative changes of the acromioclavicular and glenohumeral joints. No acute fracture. No dislocation. SOFT TISSUES: Unremarkable. RAD/Shoulder min 2 Views IMPRESSION: Degenerative changes as above. Reading Location: [id number]
[2025-07-22 19:00] VITALS: BP 119/60; PULSE 70; RESP 16; O2SAT 97
--- NOTE | 2025-07-22 19:08 | RAD_ITS ---
PROCEDURE: CHEST 1 VIEW (PORTABLE) 07/22/2025 REASON FOR EXAM: TRAUMA TECHNIQUE: Frontal view of the chest. COMPARISON: Chest x-ray 06/23/2024. FINDINGS: Hardware: Pacemaker overlying left chest wall with leads in appropriate position. Median sternotomy wires are visualized. Heart: Cardiomegaly. Lungs: Bibasilar atelectasis. Curvilinear density within right middle lung likely representing scarring. Bones: Degenerative changes of bilateral shoulder joints. Evaluation of ribs is severely limited. Other: RAD/Chest 1 View (Portable) IMPRESSION: Bibasilar atelectasis. Curvilinear scarring within right middle lung. If there is persistent or worsening respiratory status follow-up chest x-ray is recommended. Reading Location: [id number]
--- NOTE | 2025-07-22 19:08 | RAD_ITS ---
PROCEDURE: PELVIS 1 OR 2 VIEWS 07/22/2025 REASON FOR EXAM: TRAUMA TECHNIQUE: Procedure Code: RADPEL Modality: DX Procedure: PELVIS 1 OR 2 VIEWS FINDINGS: Status post bilateral hip arthroplasties (partially visualized). No evidence of acute complication. Degenerative changes of the partially visualized spine. RAD/Pelvis 1 or 2 Views IMPRESSION: Intact partially visualized bilateral hip arthroplasties. Reading Location: [id number]
[2025-07-22] MEDS: HUM PROTHROMBIN CPLX LANS IV (19:23)
[2025-07-22] MEDS: VIAFLEX IV (19:23)
[2025-07-22 20:00] VITALS: BP 138/73; PULSE 70; RESP 18; TEMP 36.7; O2SAT 99
== END 2025-07-22 20:22 | disposition short-term general hospital (02) ==
PROVIDERS: Emergency Provider Emergency Medicine; PCP Nurse Practitioner Family; Visit Provider Emergency Medicine
DX: S06.6X0A Traumatic subarachnoid hemorrhage without loss of consciousness, initial encounter (principal); M06.9 Rheumatoid arthritis, unspecified; I50.32 Chronic diastolic (congestive) heart failure; I11.0 Hypertensive heart disease with heart failure; J44.9 Chronic obstructive pulmonary disease, unspecified; I48.11 Longstanding persistent atrial fibrillation; I42.8 Other cardiomyopathies; S01.01XA Laceration without foreign body of scalp, initial encounter; S40.012A Contusion of left shoulder, initial encounter; W10.9XXA Fall (on) (from) unspecified stairs and steps, initial encounter; Y92.015 Private garage of single-family (private) house as the place of occurrence of the external cause; I25.10 Atherosclerotic heart disease of native coronary artery without angina pectoris; I35.0 Nonrheumatic aortic (valve) stenosis; E03.9 Hypothyroidism, unspecified; E78.5 Hyperlipidemia, unspecified; Z95.1 Presence of aortocoronary bypass graft; Z95.0 Presence of cardiac pacemaker; Z79.01 Long term (current) use of anticoagulants; Z79.82 Long term (current) use of aspirin; Z86.711 Personal history of pulmonary embolism; Z79.51 Long term (current) use of inhaled steroids; Z87.81 Personal history of (healed) traumatic fracture; Z79.890 Hormone replacement therapy; Z79.899 Other long term (current) drug therapy; Z87.891 Personal history of nicotine dependence; Z96.643 Presence of artificial hip joint, bilateral; Z23 Encounter for immunization
CPT/HCPCS: 70450; 70486; 71045; 72125; 72170; 73030; 90471; 90715; 96365; 96375; 99285; A4216; J2405; J7165

== ENCOUNTER 2025-07-30 08:13 | Outpatient (CLI) | payer MEDICARE, OTHER, SELFPAY ==
[2019-12-31 09:04] VITALS: BMI 30.9
[2025-07-30 08:37] VITALS: BP 111/52; PULSE 70; RESP 18; TEMP 35.8; O2SAT 96; BMI 28.1
[2025-07-30 08:59] VITALS: BP 108/59; PULSE 70; RESP 16; TEMP 36; O2SAT 99
[2025-07-30 09:59] VITALS: BP 111/61; PULSE 70; RESP 16; TEMP 35.8; O2SAT 95
[2025-07-30 11:02] VITALS: BP 121/52; PULSE 70; RESP 16; TEMP 35.7
== END 2025-07-30 23:59 | disposition home or self-care (01) ==
LOC: MEDOUTP 08:14
PROVIDERS: PCP Nurse Practitioner Family; Referring Provider Nurse Practitioner Adult Health; Visit Provider Nurse Practitioner Adult Health
DX: D64.9 Anemia, unspecified (principal)
CPT/HCPCS: 36430; 86850; 86900; 86901; 86920; 86922; P9016; A4216

== ENCOUNTER 2025-08-03 10:44 | Day surgery (SDC) | payer MEDICARE, OTHER, SELFPAY ==
[2019-12-31 09:04] VITALS: BMI 30.9
--- NOTE | 2025-07-20 12:00 | RAD_ITS ---
PROCEDURE: CHEST PA AND LATERAL 07/20/2025 REASON FOR EXAM: FOR PPM GENERATOR CHANGE TECHNIQUE: Procedure Code: RADCXR Modality: DX Procedure: CHEST PA AND LATERAL COMPARISON: 06/23/2024 FINDINGS: Left chest pacer. Median sternotomy wires. Mild pulmonary vascular congestion and interstitial edema. No focal consolidation. No pleural effusion or pneumothorax. Large cardiomegaly. Calcified aortic arch. No acute fractures. Multilevel lower thoracic compression deformities. RAD/Chest PA and Lateral IMPRESSION: Mild pulmonary vascular congestion and interstitial edema. No focal consolidati on. Large cardiomegaly. Multilevel lower thoracic compression deformities. Reading Location: [id number]
[2025-07-20 12:09] LABS: Mucous, Urine 0 SEEN /hpf (<or=2+); Red Blood Cells-Urine 0 SEEN /hpf (0-5)
[2025-07-20 12:48] LABS: Hematocrit 36.8 % (37-47); Hemoglobin 11.6 g/dL (12.0-15.0); Mean Corp Hgb Conc 31.5 g/dL (32-36); Mean Corpuscular Volume 95.6 fL (81-99); Mean Platelet Vol. 10.5 fl (6.2-12.0); Platelet Count 149 K/mm3 (150-450); RBC Distribution Width CV 16.4 % (11.6-14.6); RBC Distribution Width SD 57.5 fl (35.1-43.9); Red Blood Count 3.85 M/mm3 (4.2-5.4); White Blood Count 7.2 K/mm3 (4.4-11.0)
[2025-07-20 12:57] LABS: Color, Urine Yellow (Yellow); Glucose, Dipstick Normal (Normal); Ketone-Dipstick Negative (Negative); Leukocyte Esterase-Dipstick 100 /ul (Negative); Nitrite-Dipstick Negative (Negative); Occult Blood-Urine 10 /ul (Negative); Protein-Dipstick 15 mg/dl (Negative); Specific Gravity, Urine 1.015 (1.002-1.030); Urine Bilirubin Dipstick Negative (Negative)
[2025-07-20 13:19] LABS: Squamous Epithelial Cells - UA 5-10 SEEN /hpf (5-10)
[2025-07-20 13:46] LABS: Pro- Brain NATRIURETIC PEPTIDE 1290 pg/mL (<=1800)
[2025-07-20 13:47] LABS: Anion Gap 12 (5-15); BUN 16 mg/dL (4-19); BUN/Creat Ratio 16.4 RATIO (10-20); Calcium,Total 9.7 mg/dL (7.6-11.0); Carbon Dioxide 22.6 mmol/L (21.0-32.0); Chloride 102 mmol/L (98-108); Glucose 80 mg/dL (70-99); Potassium 4.7 mmol/L (3.3-5.1)
[2025-07-20 13:50] LABS: Prothrombin Time (Protime)PT. 18.5 SECONDS (11.7-14.9)
[2025-07-31 08:20] VITALS: BMI 27.5
--- NOTE | 2025-08-03 13:23 | CL.IE_ITS ---
Patient: KIM CAZARES Study Date: 08/03/2025 Performing: Elijah West MD : 1940 Age: 85 Gender: female PROCEDURES PERFORMED [id number])BATTERY REMOVAL+REPLACEMENT PACER-DUAL LEAD INDICATIONS Atrial fibrillation and complete heart block PROCEDURE DETAILS The patient was brought to the Catheterization Lab in the postabsorptive nonsedated state. Informed consent was obtained prior to the procedure. Local anesthetic was given subcutaneously to the left subclavian region with Lidocaine 2%. Incision was made to the left subclavicular area. Previous PPM generator was removed. PPM generator was attached to the lead(s) and inserted into the pocket. PPM generator was then interrogated by the clinical statistical programmer. Device pocket was irrigated with antibiotic. Subcutaneous closure was completed with 3-0 Vicryl. Skin closure was completed with 4-0 Vicryl. The patient tolerated the procedure well. Estimated Blood Loss: 10 ml's IMPLANTED / EX-PLANTED DEVICES IMPLANTED DEVICE(S): PPM Generator - Communications Equipment Operator: [employer], Model # [employer] MRI DR L111 , Serial # [id number] DEVICE PARAMETERS DEVICE PARAMETERS: rate response on Mode- VVIR Lower rate- 70 Upper rate- 130 CONCLUSIONS / RECOMMENDATIONS Device Conclusions: Successful implantation of a dual chamber pacemaker battery change and replacement Device Recommendations: Follow up with Primary Care Physician PROCEDURE MEDICATIONS Versed 1 mg IV Fentanyl 25 mcg IV Versed 1 mg IV Oxygen: 2 L/min via nasal cannula Antibiotic given in appropriate timeframe. Ancef 2 Gm IV @ 08/03/2025 12:34:00 Signed By Elijah West MD On 08/03/2025 13:22:36 Elijah West MD
== END 2025-08-03 14:20 | disposition home or self-care (01) ==
PROVIDERS: Nurse Practitioner Gerontology; PCP Nurse Practitioner Family; Referring Provider Internal Medicine Cardiovascular Disease; Visit Provider Internal Medicine Cardiovascular Disease
DX: Z45.02 Encounter for adjustment and management of automatic implantable cardiac defibrillator (principal); I50.32 Chronic diastolic (congestive) heart failure; I11.0 Hypertensive heart disease with heart failure; J44.9 Chronic obstructive pulmonary disease, unspecified; I48.20 Chronic atrial fibrillation, unspecified; I44.2 Atrioventricular block, complete; I48.11 Longstanding persistent atrial fibrillation; Z95.5 Presence of coronary angioplasty implant and graft; I10 Essential (primary) hypertension; E78.00 Pure hypercholesterolemia, unspecified; Z79.82 Long term (current) use of aspirin; Z79.899 Other long term (current) drug therapy; Z79.01 Long term (current) use of anticoagulants; Z79.890 Hormone replacement therapy; Z87.891 Personal history of nicotine dependence; Z95.1 Presence of aortocoronary bypass graft; I35.0 Nonrheumatic aortic (valve) stenosis
CPT/HCPCS: 33228; 36415; 71046; 80048; 81001; 83880; 85027; 85610; 99152; 99153

== ENCOUNTER → 2025-10-09 | Outpatient (CLI) | payer MEDICARE, OTHER, SELFPAY ==
[2025-08-14 14:07] VITALS: BMI 30.9
--- OUTSIDE RECORDS SUMMARY | 2025-10-09 16:17 | XMS RPT_ITS | CCD ---
Author Organization [facility] Care Team Providers Care [employer] Marble Installer Name Role Phone Adeola RN, Ingrid Alonso Unavailable [phone] Maddie RN, Gerda Echols Unavailable Unavailable Adeola RN, Ingrid Alonso Unavailable [phone] Yasmin Ashley Unavailable Unavailable Yasmin Ashley Unavailable Unavailable MARGI Hubbard, Darlyn Zavala Unavailable Unavailwinsome Hubbard RN, Darlyn Zavala Unavailable Unavailabl Luis Eduardo Serrano Unavailable Luis Eduardo Sanders Primary Care Provider Adiel Azul Unavailable Maddie RN, Gerda Echols Unavailable Unavailable Maddie RN, Gerda Echols Unavailable Unavailable Maddie KISER, Gerda Echols Unavailable Unavailable MARGI Hernandez, Pricilla M Unavailable Unavailable MARGI Hubbard, Darlyn Zavala Unavailable Unavailwinsome Hubbard RN, Darlyn Sally Unavailable Unavailabl jackie Perkins RN, Gerda A Unavailable Unavailable MARGI Hubbard, Darlyn Zavala Unavailable Unavailwinsome Hubbard RN, Darlyn Sally Unavailable Unavailabl jackie Hubbard RN, Darlyn M Unavailable Unavailabl jackie Hubbard RN, Darlyn M Unavailable Unavailabl jackie Hubbard RN, Darlyn M Unavailable Unavailabl jackie West MD, Elijah Porter Unavailable MARGI Hubbard, Darlyn Zavala Unavailable Unavailwinsome Mir RN, Ingrid Alonso Unavailable [phone] Adeola RN, Ingrid Alonso Unavailable [phone] Adeola RN, Ingrid Alonso Unavailable [phone] Adeola RN, Ingrid Alonso Unavailable [phone] Adeola RN, Ingrid Alonso Unavailable Stevie, RN, Darlyn M Unavailable Unavailabl e Stevie, RN, Darlyn M Unavailable Unavailabl e Maddie RN, Gerda A Unavailable Unavailable Ashley, Yasimn Unavailable Unavailable Ashley, Yasmin Unavailable Unavailable Ashley, Yasmin Unavailable Unavailable Gilmer Holley MD Unavailable DeFinis, Harumi Y Unavailable Unavailable Stevie, RN, Darlyn M Unavailable Unavailabl e Mary, RN, Pricilla M Unavailable Unavailable Mary, RN, Pricilla M Unavailable Unavailable Mary, RN, Pricilla M Unavailable Unavailable Stevie, RN, Darlyn M Unavailable Unavailabl e Stevie, RN, Darlyn M Unavailable Unavailabl e Maddie RN, Gerda A Unavailable Unavailable MARGI Hubbard, Darlyn M Unavailable Unavailabl e Dr. Todd Carbajal Primary Care Provider [phone] Dr. Todd Carbajal Referring Provider AMAYA Moon Attending Provider AMAYA Schumacher Attending Provider Deonna Hernandez Attending Provider Unavailable AMAYA Schumacher Referring Provider AMAYA Schumacher Other Provider [phone] Dr. Elijah West Attending Provider [phone] Elijah West Attending Provider Dr. Elijah West Referring Provider [phone] AMAYA Martinez Attending Provider Dr. Todd Carbajal Primary Care Provider [phone] Dr. Todd Carbajal Referring Provider AMAYA Moon Attending Provider Dr. Todd Carbajal Primary Care Provider [phone] Dr. Todd Carbajal Referring Provider AMAYA Schumacher Attending Provider Dr. Elijah West Attending Provider AMAYA Moon Attending Provider Bran DRILL HAND, DRILL HAND-C Zeina Attending Provider [phone] Bran DRILL HAND, DRILL HAND-C Zeina Referring Provider [phone] Bran DRILL HAND, DRILL HAND-C Zeina Other Provider Dr. Quinton Alfonso Attending Provider Dr. Todd Carbajal Primary Care Provider [phone] Dr. Todd Carbajal Referring Provider Dr. Elijah West Attending Provider [phone] AMAYA Moon Attending Provider Bran DRILL HAND, DRILL HAND-C Zeina Attending Provider [phone] Bran DRILL HAND, DRILL HAND-C Zeina Referring Provider Shant DRILL HAND, DRILL HAND-C Zeina Other Provider Dr. Quinton Alfonso Attending Provider Dr. Amadou Major Attending Provider Deonna Hernandez Attending Provider Unavailable FIFI Topete NP Attending Provider Dr. Todd Carbajal Primary Care Provider [phone] Dr. Elijah West Attending Provider [phone] Elijah West Referring Provider [phone] Todd Carbajal Referring Provider [phone] Dr. Amadou Major Attending Provider Deonna Hernandez Attending Provider Unavailable Dr. Todd Carbajal Primary Care Provider [phone] Dr. Todd Carbajal Referring Provider Shant DRILL HAND, DRILL HAND-C Zeina Attending Provider Efrem PACHECO, DRILL HAND-C Bailey Attending Provider Hiro PACHECO-CTeagan Primary Care Provider [phone] Dr. Elijah West MD Attending Provider [phone] Dr. Elijah West MD Referring Provider Hiro DRILL HAND-C, Teagan Referring Provider [phone] Efrem PACHECO-C, Bailey Attending Provider Dr. Todd Carbajal DO Referring Provider Bran DRILL HAND-C, Zeina Attending Provider Hiro DRILL HAND-C, Teagan Primary Care Provider Dr. Elijah West MD Attending Provider Dr. Elijah West MD Referring Provider Bran DRILL HAND-C, Zeina Referring Provider Shant DRILL HAND-C, Zeina Other Provider Dr. Quinton Alfonso DO Attending Provider [phone] Hiro DRILL HAND-C, Teagan Attending Provider Kassandra Mendez Attending Provider [phone] Kassandra Mendez Referring Provider Efrem DRILL HAND-CBailey Referring Provider Kassandra Mendez Attending Provider Kassandra Mendez Referring Provider Hiro DRILL HAND-C, Teagan Primary Care Physician Efrem PACHECO-Bailey Mixon Attending Physician Dr. Elijah West MD Attending Physician Shant DRILL HAND-C, Zeina Attending Physician [phone] Shant DRILL HAND-C, Zeina Nurse Practitioner Dr. Quinton Alfonso DO Attending Physician [phone] Hiro DRILL HAND-C, Teagan Attending Physician Kassandra Mendez Attending Physician Kassandra Mendez Referring Provider Hiro DRILL HAND-C, Teagan Primary Care Physician Hiro DRILL HAND-C, Teagan Referring Provider Efrem DRILL HAND-C, Bailey Attending Physician Kassandra Mendez Attending Physician Kassandra Mendez Referring Provider Deonna Hernandez Attending Physician Unavailable Tim OLIVIA, Dr. Corona Attending Physician Dr. Cj Dumont MD Emergency Department Physici an Drake Farah MD Attending Physician Unavail able Glynn DRILL HAND-C, Maura Attending Physician Glynn DRILL HAND-C, Maura Referring Provider Drake Farah MD Referring Provider Unavaila ble Glynn DRILL HAND-C, Maura Attending Physician TODD CARBAJAL Consulting Unavailable TODD CARBAJAL Primary Care Unavailable PRESTON SANTILLAN Attending Unavaila YEMI Car Admitting Unavailable SANDRO RUIZ Referring Unavailable TODD CARBAJAL Primary Care Unavailable Hiro DRILL HAND-C, Teagan Primary Care Physician Jenna OLIVIA, Dr. Nava Attending Physician Jenna OLIVIA, Dr. Nava Referring Provider Sofi OLIVIA, Dr. Juan Attending Physician [phone] Deonna Hernandez Attending Physician Unavailable Hiro DRILL HAND-C, Teagan Primary Care Physician Shant DRILL HAND-CZeina Attending Physician [phone] Hiro, Teagan Referring Unavailable Zeina Bran NP Attending Unavailable Hiro, Teagan Primary Care Unavailable Elijah West Referring Unavailable Elijah West Attending Unavailable Hiro, Teagan Primary Care Unavailable Hiro, Teagan Referring Unavailable Efrem PACHECO, Bailey Attending Unavailable Hiro, Teagan Primary Care Unavailable Efrem DRILL HANDBailey Attending Unavailable Hiro, Teagan Primary Care Unavailable Efrem PACHECO, Bailey Attending Unavailable Hiro, Teagan Primary Care Unavailable Bailey Topete NP Referring Unavailable Hiro, Teagan Primary Care Unavailable Kassandra Avalos Referring Unavailable Kassandra Avalos Attending Unavailable Hiro, Teagan Primary Care Unavailable Oleghe OLS, Efewongbe Referring Unavailabl e Oleghe OLS, Efewongbe Attending Unavailabl e Hiro, Teagan Primary Care Unavailable Glynn FARRIS Maura Attending Unavailable Hiro, Teagan Primary Care Unavailable Shant DRILL HAND, Zeina Referring Unavailable Shant DRILL HAND, Zeina Attending Unavailable Hiro, Teagan Primary Care Unavailable Jenna, Portia Attending Unavailable Hiro, Teagan Primary Care Unavailable Hiro, Teagan Referring Unavailable Shant DRILL HAND, Zeina Attending Unavailable Shant DRILL HAND, Zeina Referring Unavailable Shant DRILL HAND, Zeina Consulting Unavailable Quinton Alfonso Attending Unavailable Hiro, Teagan Primary Care Unavailable Jenna, Elijah Attending Unavailable Jenna, Elijah Referring Unavailable Hiro, Teagan Primary Care Unavailable Hiro, Teagan Primary Care Unavailable Jenna, Elijah Referring Unavailable Jenna, Portia Attending Unavailable Hiro, Teagan Primary Care Unavailable Jenna, Elijah Referring Unavailable Jenna, Portia Attending Unavailable Hiro, Teagan Primary Care Unavailable Hiro, Teagan Referring Unavailable Efrem PACHECO, Bailey Attending Unavailable Hiro, Teagan Primary Care Unavailable Jenna, Portia Attending Unavailable Jenna, Portia Referring Unavailable Hiro, Teagan Referring Unavailable Bailey Topete NP Attending Unavailable Hiro, Teagan Primary Care Unavailable Hiro, Teagan Primary Care Unavailable Jenna, Elijah Referring Unavailable Jenna, Elijah Attending Unavailable Hiro, Teagan Referring Unavailable Hiro, Teagan Attending Unavailable Hiro, Teagan Primary Care Unavailable Hiro, Teagna Primary Care Unavailable Jenna, Portia Attending Unavailable Jenna, Elijah Referring Unavailable Hiro, Teagan Primary Care Unavailable Maura Maki NP Referring Unavailable Glynn DRILL HANDMaura Attending Unavailable Hiro, Teagan Primary Care Unavailable Cj Dumont Attending Unavailable Hiro, Teagan Primary Care Unavailable Jenna, Portia Attending Unavailable Hiro, Teagan Primary Care Unavailable Oleghe, Efewongbe Attending Unavailable Hiro, Teagan Primary Care Unavailable Todd Carbajal Referring Unavailable Shant DRILL HANDZeina Attending Unavailable Allergies Allergy Classification Reported Allergen(s) Allergy Type Date of Onset Reaction(s) Facility (20 sources) atorvastatin Drug Allergy 08-30-2012 [facility] Work Phone: (1 source) drug allergy 08-30-2012 [facility] Work Phone: (1 source) drug allergy 08-30-2012 [facility] Work Phone: (1 source) drug allergy 08-30-2012 [facility] Work Phone: [phone] (1 source) drug allergy 08-30-2012 [facility] Work Phone: (1 source) drug allergy 08-30-2012 [facility] Work Phone: [phone] (1 source) drug allergy 08-30-2012 [facility] Work Phone: (1 source) Seasonal Allergies: Uncoded Allergy to substance 03-22-2023 Other [facility] Medications Current Medications Medication Drug Class(es) Dates Sig (Normalized) Sig (Original) acetaminophen 650 mg oral tablet (20 sources) Start: 08-02-2012 take 1 tablet by mouth every four hours as needed acetaminophen 650 MG PO TABS take 650 mg by mouth every 4 hours as needed. 0 08/02/2012 Active Start: 06-07-2011 End: 07-12-2017 TYLENOL 325 MG TABS 2 tablet s by mouth as needed ACETAMINOPHEN [id number] Luis Eduardo Sanders MD Start: 06-07-2011 TYLENOL 325 MG TABS [id number] 200 actuat albuter ol 0.09 mg/actuat metered dose inhaler (20 sources) beta2-Adrenergic Agonist Start: 09-01-2020 Start: 09-01-2020 take 1 puff(s) by in halation every six hours Albuterol Sulfate Active 2 PUFF INHALATION EVERY 6 HOURS 8.5 September 01, 2020 1:00am Start: 08-01-2010 End: 06-07-2011 PROVENTIL HFA 108 (90 Base) MCG/ACT AERS 2 puff every 4hr as needed ALBUTEROL SULFATE [id number] Luis Eduardo Sanders MD Start: 08-01-2010 End: 06-07-2011 PROVENTIL HFA 108 (90 Base) MCG/ACT AERS 2 puff every 4hr as needed ALBUTEROL SULFATE [id number] Luis Eduardo Sanders MD Start: 08-01-2010 End: 06-07-2011 PROVENTIL HFA 108 (90 Base) MCG/ACT AERS aspirin 81 mg delayed release oral tablet (20 sources) Platelet Aggregation Inhibitor, Nonsteroidal Anti-inflammatory Drug Start: 08-02-2012 take 1 tablet by mouth once daily aspirin 81 MG PO CHEW take 1 Tab by mouth daily. 30 Tab 0 08/02/2012 Active Start: 08-02-2012 take 1 tablet by zeyad th at bedtime Start: 08-02-2012 take 1 tablet by zeyad th once daily ASPIRIN 81 MG TABS One tablet by mouth daily ASPIRIN [id number] Pricilla Hernandez RN Start: 08-02-2012 ASPIRIN 81 MG TABS Start: 06-07-2011 take 1 tablet by zeyad th once daily ASPIRIN 325 MG TABS One tablet by mouth daily ASPIRIN [id number] Luis Eduardo Sanders MD Start: 11-17-2009 End: 06-07-2011 take 1 tablet by mouth once daily ASPIRIN 81 MG TABS One tablet by mouth daily ASPIRIN [id number] Pricilla Hernandez RN Start: 11-17-2009 ASPIRIN LOW DO SE 81 MG TABS Start: 11-17-2009 End: 06-07-2011 ASPIRIN LOW DOSE 81 MG TABS Calcium (12 sources) Phosphate Binder, Calcium Start: 10-11-2021 take 1 tablet by mouth once daily Calcium Carb-D3-Mag [id number] Active 1 TABLET PO DAILY October 11, 2021 11:00am administer with a meal Start: 10-11-2021 End: 08-14-2023 take 1 tablet by mouth once daily Calcium Carb-D3-Mag [id number]-Ognq Discontinued 1 TABLET PO DAILY October 11, 2021 1:00am August 14, 2023 11:45am administer with a meal Start: 10-11-2021 take 1 tablet by zeyad th once daily Calcium Carb-D3-Mag [id number] Active 1 TABLET PO DAILY October 11, 2021 12:00am administer with a meal Start: 10-11-2021 take 1 tablet by zeyad th once daily Calcium Carb-D3-Mag Zul39-Arng Active 1 TABLET PO DAILY October 11, 2021 1:00am administer with a meal take 1 tablet by zeyad th once daily CALCIUM 600 MG PO TABS Indications: Calcium w/ Vit. D take 1 Tab by mouth daily. Indications: Calcium w/ Vit. D 0 Active Fluticasone Furoate (20 sources) Corticosteroid Start: 06-23-2025 take 200 ug by inhalation once daily Fluticasone Furoate (Arnuity Ellipta) 200 mcg/actuation blister with device Active 1 NMA INHALATION daily 3 June 23, 2025 12:35pm administer at approximately the same time(s) each day Complies with drug therapy Start: 06-23-2025 take 200 ug by inhal ation once daily Start: 06-23-2025 take 200 ug by inhal ation once daily Fluticasone Furoate (Arnuity Ellipta) 200 mcg/actuation blister with device Active 1 NMA INHALATION daily 3 June 23, 2025 12:35pm administer at approximately the same time(s) each day Start: 05-28-2025 End: 06-23-2025 take 200 ug by inhalation once daily Fluticasone Furoate (Arnuity Ellipta) 200 mcg/actuation blister with device Discontinued 1 NMA INHALATION daily 3 May 28, 2025 3:16pm June 23, 2025 12:35pm administer at approximately the same time(s) each day Start: 05-28-2025 take 200 ug by inhal ation once daily Fluticasone Furoate (Arnuity Ellipta) 200 mcg/actuation blister with device Active 1 NMA INHALATION daily 3 May 28, 2025 3:16pm administer at approximately the same time(s) each day Start: 08-28-2024 End: 08-28-2024 Fluticasone Propionate (Flov ent Diskus) 250 mcg/actuation blister with device Discontinued 1 NMA INHALATION TWICE A DAY 3 August 28, 2024 11:14am August 28, 2024 12:01pm Start: 08-28-2024 End: 05-28-2025 take 200 ug by inhalation once daily Fluticasone Furoate (Arnuity Ellipta) 200 mcg/actuation blister with device Discontinued 1 NMA INHALATION daily 3 August 28, 2024 12:00am May 28, 2025 3:16pm administer at approximately the same time(s) each day Start: 08-28-2024 take 200 ug by inhal ation once daily Fluticasone Furoate (Arnuity Ellipta) 200 mcg/actuation blister with device Active 1 NMA INHALATION daily 3 3 August 28, 2024 12:00am administer at approximately the same time(s) each day Start: 09-14-2022 End: 08-28-2024 Fluticasone Propionate (Flov ent Diskus) 250 mcg/actuation blister with device Discontinued 1 NMA INHALATION TWICE A DAY 3 3 September 14, 2022 9:36am August 28, 2024 11:15am Start: 09-14-2022 Fluticasone Pr opionate (Flovent Diskus) 250 mcg/actuation blister with device Active 1 INH INHALATION TWICE A DAY 3 September 14, 2022 9:36am Start: 09-14-2022 Fluticasone Pr opionate (Flovent Diskus) 250 mcg/actuation blister with device Active 1 INH INHALATION TWICE A DAY 3 September 14, 2022 8:36am Start: 03-15-2021 End: 09-14-2022 Fluticasone Propionate (Flov ent Diskus) 250 mcg/actuation blister with device Discontinued 1 NMA INHALATION TWICE A DAY 3 3 March 15, 2021 5:43am September 14, 2022 9:36am Start: 03-15-2021 End: 09-14-2022 Fluticasone Propionate (Flov ent Diskus) 250 mcg/actuation blister with device Discontinued 1 INH INHALATION TWICE A DAY 3 March 15, 2021 5:43am September 14, 2022 9:36am Start: 03-15-2021 End: 09-14-2022 Fluticasone Propionate (Flov ent Diskus) 250 mcg/actuation blister with device Discontinued 1 INH INHALATION TWICE A DAY 3 March 15, 2021 4:43am September 14, 2022 8:36am Start: 03-15-2021 Fluticasone Pr opionate (Flovent Diskus) 250 mcg/actuation blister with device Active 1 INH INHALATION TWICE A DAY 3 March 15, 2021 5:43am Start: 05-18-2020 End: 03-15-2021 Fluticasone Propionate (Flov ent Diskus) 250 mcg/actuation blister with device Discontinued 1 INH INHALATION TWICE A DAY May 18, 2020 9:41am March 15, 2021 5:43am Start: 05-18-2020 End: 03-15-2021 Fluticasone Propionate (Flov ent Diskus) 250 mcg/actuation blister with device Discontinued 1 NMA INHALATION TWICE A DAY May 18, 2020 12:00am March 15, 2021 5:43am Start: 05-18-2020 End: 03-15-2021 Fluticasone Propionate (Flov ent Diskus) 250 mcg/actuation blister with device Discontinued 1 INH INHALATION TWICE A DAY May 17, 2020 11:00pm March 15, 2021 4:43am Start: 05-18-2020 End: 03-15-2021 Fluticasone Propionate (Flov ent Diskus) 250 mcg/actuation blister with device Discontinued 1 INH INHALATION TWICE A DAY May 18, 2020 12:00am March 15, 2021 5:43am Start: 12-04-2019 End: 02-17-2020 Fluticasone Propionate (Flov ent Diskus) 250 mcg/actuation blister with device Discontinued 1 NMA INHALATION TWICE A DAY 60 December 04, 2019 3:45pm February 17, 2020 10:34am Start: 12-04-2019 End: 02-17-2020 Fluticasone Propionate (Flov ent Diskus) 250 mcg/actuation blister with device Discontinued 1 INH INHALATION TWICE A DAY 60 December 04, 2019 3:45pm February 17, 2020 10:34am Start: 11-06-2019 End: 12-04-2019 Fluticasone Propionate 220 mcg/actuation HFA aerosol inhaler Discontinued 2 NMA INHALATION TWICE A DAY 10 03November 06, 2019 1:00am December 04, 2019 3:15pm Start: 11-06-2019 End: 12-04-2019 take 1 puff(s) by inhalation twice daily Fluticasone Propionate Discontinued 2 PUFF INHALATION TWICE A DAY November 06, 2019 1:00am December 04, 2019 3:15pm Start: 10-19-2010 End: 06-07-2011 take 2 spray(s) nasal route once daily FLUTICASONE PROPIONATE 50 MCG/ACT SUSP 2 spray/nostril daily FLUTICASONE PROPIONATE [id number] Luis Eduardo Sanders MD Start: 10-19-2010 End: 06-07-2011 FLUTICASONE PROPIONATE 50 MC G/ACT SUSP levothyroxine sodium 0.125 m g oral tablet (20 sources) l-Thyroxine Start: 05-28-2025 take 1 tablet by zeyad th once daily Start: 03-19-2025 End: 05-28-2025 Levothyroxine 100 mcg tablet Discontinued 125 ug PO daily March 19, 2025 8:31am May 28, 2025 2:56pm thyroid Start: 04-19-2018 End: 03-19-2025 take 1 tablet by mouth once daily Levothyroxine 100 mcg tablet Discontinued 100 ug PO daily April 19, 2018 12:00am March 19, 2025 8:34am thyroid Start: 03-09-2014 take 1 tablet by zeyad th once daily LEVOTHYROXINE SODIUM 100 MCG TABS One tablet by mouth daily LEVOTHYROXINE SODIUM [id number] Elijah West MD Start: 11-02-2013 End: 04-19-2018 Levothyroxine 75 MCG tablet Discontinued 100 ug PO DAILY November 02, 2013 1:00am April 19, 2018 1:27pm Start: 11-02-2013 End: 04-19-2018 take 100 ug by mouth once daily Levothyroxine Disconti nued 100 MCG PO DAILY November 02, 2013 1:00am April 19, 2018 1:27pm Start: 08-01-2010 End: 03-09-2014 take 1 tablet by mouth once daily LEVOTHYROXINE SODIUM 75 MCG TABS One tablet by mouth daily LEVOTHYROXINE SODIUM [id number] Luis Eduardo Sanders MD Start: 11-17-2009 take 1 tablet by zeyad th at breakfast LEVOTHYROXINE SODIUM 50 MCG TABS One tablet by mouth 30-60 minutes prior to breakfast LEVOTHYROXINE SODIUM [id number] Luis Eduardo Sanders MD Start: 11-17-2009 LEVOTHYROXINE SODIUM 50 MCG TABS levothyroxine 50 MCG PO TABS Indications: Hypothyroidism take 75 mcg by mouth daily. Indications: Underactive Thyroid 0 Active magnesium oxide 400 mg oral capsule (20 sources) Start: 04-27-2025 take 1 capsule by mo [facility] once daily Start: 04-28-2022 End: 08-07-2023 take 1 tablet by mouth once daily Magnesium Oxide 250 mg magnesium tablet Discontinued 250 mg PO DAILY April 28, 2022 12:00am August 07, 2023 9:34am metoprolol tartrate 25 mg or al tablet (20 sources) beta-Adrenergic Nanette Start: 10-08-2024 Start: 10-31-2023 End: 10-08-2024 Metoprolol Tartrate 25 mg ta blet Discontinued 0 .ROUTE .COMPLEX 90 October 31, 2023 3:05pm October 08, 2024 10:59am TAKE ONE-HALF (1/2) TABLET (12.5 MG) TWICE A DAY FOR BLOOD PRESSURE Start: 02-18-2019 End: 10-31-2023 Metoprolol Tartrate 25 mg ta blet Discontinued 12.5 mg PO TWICE A DAY 30 0 August 20, 2023 10:55am October 31, 2023 3:06pm Awaiting mail order RX, pt is OUT blood pressure Start: 02-18-2019 End: 08-20-2023 take 12.5 mg by mouth twice daily Metoprolol Tartrate Discontinued 12.5 MG PO TWICE A DAY September 13, 2022 3:12pm August 20, 2023 10:56am blood pressure Start: 07-23-2018 End: 02-18-2019 Metoprolol Tartrate 50 mg ta blet Discontinued 25 mg PO TWICE A DAY 90 October 04, 2018 1:56pm February 18, 2019 11:18am blood pressure Start: 07-23-2018 End: 02-18-2019 take 25 mg by mouth twice daily Metoprolol Tartrate Di scontinued 25 MG PO TWICE A DAY October 04, 2018 1:56pm February 18, 2019 11:18am blood pressure Start: 10-31-2017 End: 04-19-2018 Metoprolol Tartrate 50 mg ta blet Discontinued PO 30 15 October 31, 2017 1:00am April 19, 2018 1:28pm Start: 10-31-2017 End: 04-19-2018 Metoprolol Tartrate Disconti nued PO 30 15 October 31, 2017 1:00am April 19, 2018 1:28pm Start: 10-18-2012 take 2 tablets by mo uth twice daily METOPROLOL TARTRATE 25 MG TABS Two tablets by mouth twice daily METOPROLOL TARTRATE [id number] Nicki Short RN Start: 07-22-2012 End: 07-23-2018 take 1 tablet by mouth twice daily Metoprolol Tartrate 25 MG tablet Discontinued 25 mg PO TWICE A DAY November 02, 2013 1:00am July 23, 2018 11:31am Start: 06-24-2012 End: 07-22-2012 TOPROL XL 25 MG [id number] on e half tablet daily METOPROLOL SUCCINATE [id number] Adiel Azul MD Start: 06-24-2012 End: 07-22-2012 TOPROL XL 25 MG [id number] Start: 07-24-2011 End: 06-24-2012 METOPROLOL TARTRATE 25 MG TA BS One half tablet by mouth twice daily METOPROLOL TARTRATE [id number] Adiel Azul MD Start: 11-17-2009 End: 09-05-2011 METOPROLOL TARTRATE 50 MG TA BS One half tablet by mouth twice daily METOPROLOL TARTRATE [id number] Ingrid Lopez PA-C nitrofurantoin, macrocrystals 25 mg / nitrofurantoin, monohydrate 75 mg oral capsule (8 sources) Nitrofuran Antibacterial Start: 07-21-2025 take 1 capsule by mouth twice daily at mealtime nitroglycerin 0.4 mg sublingual tablet (20 sources) Nitrate Vasodilator Start: 11-17-2009 nitroGLYCERIN 0.4 MG SL tablet Indications: CAD (coronary artery disease) 1 Tab by Sublingual route. PRN 30 0 11/22/2009 Active omega-3 acid ethyl esters (snf) 1000 mg oral capsule (2 sources) take 1 capsule by mouth once daily omega-3 fish oil 1 G PO CAPS Indications: Hypertriglyceridemia take 1 g by mouth daily. Indications: High Amount of Triglycerides in the Blood 0 Active take 1 capsule by mouth once jake ly [place]-3 Fatty Acids (OMEGA 3) 1200 MG PO CAPS Indications: A-fib take 1 Cap by mouth daily. 0 Active sertraline 100 mg oral table t (20 sources) Serotonin Reuptake Inhibitor Start: 06-19-2025 Start: 08-14-2023 End: 06-19-2025 take 1 tablet by mouth once daily Sertraline 100 mg tablet Discontinued 100 mg PO DAILY August 14, 2023 12:00am June 19, 2025 10:29am Start: 10-15-2020 End: 08-14-2023 take 1 tablet by mouth once daily Sertraline 50 mg tablet Discontinued 50 mg PO DAILY 90 3 October 15, 2020 1:00am August 14, 2023 11:46am Longstanding persistent atrial fibrillation Start: 02-18-2019 End: 12-30-2019 take 1 tablet by mouth once daily Sertraline 50 mg tablet Discontinued 50 mg PO DAILY February 18, 2019 12:00am December 30, 2019 11:07am Start: 10-31-2017 End: 05-19-2018 take 1 tablet by mouth once daily Sertraline 50 mg tablet Discontinued 50 mg PO daily 30 30 0 April 19, 2018 1:28pm May 18, 2018 12:00am May 19, 2018 12:07am Start: 10-31-2017 End: 04-19-2018 Sertraline 50 mg tablet Disc ontinued PO 30 30 0 October 31, 2017 1:00am April 19, 2018 1:29pm Start: 02-27-2017 End: 07-03-2017 take 1 tablet by mouth once daily ZOLOFT 50 MG TABS One tablet by mouth daily SERTRALINE HCL [id number] Ingrid Lopez PA-C spacer (20 sources) Start: 11-24-2019 spacer Active 0 .ROUTE .MEDSUPPLY November 24, 2019 1:25pm As directed Start: 11-24-2019 End: 08-14-2023 spacer Discontinued 0 .ROUTE .MEDSUPPLY 1 November 24, 2019 1:00am August 14, 2023 11:46am As directed Start: 11-24-2019 End: 08-14-2023 spacer Discontinued 0 .ROUTE .MEDSUPPLY November 24, 2019 1:00am August 14, 2023 11:46am As directed Start: 11-24-2019 spacer Active 0 .ROUTE .MEDSUPPLY November 24, 2019 12:00am As directed Start: 11-24-2019 spacer Active 0 .ROUTE .MEDSUPPLY November 24, 2019 1:00am As directed Completed/Discontinued Medications Medication Drug Class(es) Dates Sig (Normalized) Sig (Original) acetaminophen 300 mg / codeine phosphate 30 mg oral tablet (20 sources) Opioid Agonist Start: 07-22-2020 End: 01-21-2021 Acetaminophen-Codei ne 300-30 mg tablet Discontinued 1 {tbl} PO TWICE A DAY as needed July 22, 2020 12:00am January 21, 2021 11:34am Start: 07-22-2020 End: 01-21-2021 take 1 tablet by mouth twice daily Acetaminophen-Codeine Discontinued 1 TABLET PO TWICE A DAY July 22, 2020 12:00am January 21, 2021 11:34am Start: 12-29-2018 End: 02-18-2019 Acetaminophen-Codeine 1 EACH tablet Discontinued 2 {tbl} PO EVERY 4 HOURS NEEDED as needed for Pain December 29, 2018 1:00am February 18, 2019 10:50am Start: 12-29-2018 End: 02-18-2019 take 2 tablets by mouth every four hours as needed Acetaminophen-Codeine Discontinued 2 TABLET PO EVERY 4 HOURS NEEDED December 29, 2018 1:00am February 18, 2019 10:50am albuterol 0.833 mg/ml / ipratropium bromide 0.167 mg/ml inhalation solution (20 sources) Anticholinergic, beta2-Adrenergic Agonist Start: 09-28-2019 End: 02-17-2020 take 1 mL by inhalation every eight hours Ipratropium-Albuterol 0.5 mg-3 mg(2.5 mg base)/3 mL solution for nebulization Discontinued 3 mL INHALATION Q8H September 28, 2019 1:00am February 17, 2020 10:35am Start: 09-28-2019 End: 02-17-2020 take 1 mL by inhalation every eight hours Ipratropium-Albuterol Discontinued 3 ML INHALATION Q8H September 28, 2019 1:00am February 17, 2020 10:35am allopurinol 100 mg oral tablet (20 sources) Xanthine Oxidase Inhibitor Start: 07-22-2020 End: 08-07-2023 take 2 tablets by mouth once daily as needed Allopurinol 100 mg tablet Discontinued 200 mg PO DAILY as needed for Rash April 28, 2022 11:17am August 07, 2023 9:33am Start: 07-22-2020 End: 08-07-2023 take 200 mg by mouth once daily Allopurinol Discontinued 200 MG PO DAILY April 28, 2022 11:17am August 07, 2023 9:33am ALPRAZolam 0.25 mg oral tablet (20 sources) Benzodiazepine Start: 09-09-2010 End: 11-07-2010 XANAX 0.25 MG TABS one by mouth as needed ALPRAZOLAM [id number] Lusi Eduardo Sanders MD Start: 09-09-2010 End: 11-07-2010 XANAX 0.25 MG TABS amiodarone hydrochloride 200 mg oral tablet (20 sources) Antiarrhythmic Start: 11-17-2009 End: 08-02-2012 take 1 tablet by mouth once daily AMIODARONE HCL 200 MG TABS One tablet by mouth daily AMIODARONE HCL [id number] Pricilla Hernandez RN Start: 11-17-2009 End: 02-04-2010 take 1 tablet by mouth twice daily AMIODARONE HCL 200 MG TABS One tablet by mouth twice daily AMIODARONE HCL [id number] Magdalena Ashraf RN amitriptyline hydrochloride 25 mg oral tablet (20 sources) Tricyclic Antidepressant Start: 06-07-2011 End: 09-05-2011 take 1 tablet by mouth once daily AMITRIPTYLINE HCL 25 MG TABS One tablet by mouth daily AMITRIPTYLINE HCL [id number] Luis Eduardo Sanders MD amLODIPine 2.5 mg oral tablet (20 sources) Dihydropyridine Calcium Channel Nanette Start: 10-14-2013 End: 11-06-2013 AMLODIPINE BESYLATE 2.5 MG TABS 1-2 tablets by mouth as needed elevated SBP over 140 or DBP over 90, max 4 tablets/day AMLODIPINE BESYLATE [id number] Luis Eduardo Sanders MD Start: 10-14-2013 End: 11-06-2013 AMLODIPINE BESYLATE 2.5 MG T ABS 1-2 tablets by mouth as needed elevated SBP over 140 or DBP over 90, max 4 tablets/day AMLODIPINE BESYLATE [id number] Ingrid Lopez PA-C Start: 09-25-2011 End: 10-09-2011 take 1 tablet by mouth once daily AMLODIPINE BESYLATE 10 MG TABS One tablet by mouth daily AMLODIPINE BESYLATE [id number] Luis Eduardo Sanders MD apixaban 5 mg oral tablet (20 sources) Factor Xa Inhibitor Start: 04-09-2020 End: 03-25-2025 take 1 tablet by mouth twice daily Apixaban (Eliquis) 5 mg tablet Discontinued 5 mg PO TWICE A DAY 60 January 23, 2025 3:26pm March 25, 2025 5:33pm atorvastatin 40 mg oral tablet (20 sources) HMG-CoA Reductase Inhibitor Start: 03-07-2018 End: 09-15-2024 take 1 tablet by mouth at bedtime Atorvastatin 40 mg tablet Discontinued 40 mg PO AT BEDTIME 90 October 31, 2023 3:08pm September 15, 2024 1:51pm cholesterol 40 mg PO at bedtime Start: 08-02-2012 End: 08-30-2016 take 1 tablet by mouth once daily LIPITOR 40 MG TABS HOLD 07/26/16 One tablet by mouth daily ATORVASTATIN CALCIUM [id number] Kristal Yañez NP atropine sulfate 0.025 mg / diphenoxylate hydrochloride 2.5 mg oral tablet (20 sources) Anticholinergic, Cholinergic Muscarinic Antagonist, Antidiarrheal Start: 10-31-2017 End: 04-19-2018 Diphenoxylate-Atropine 2.5-0.025 mg tablet Discontinued PO 30 3 0 October 31, 2017 1:00am April 19, 2018 1:27pm Start: 10-31-2017 End: 04-19-2018 Diphenoxylate-Atropine Disco ntinued PO 30 October 31, 2017 1:00am April 19, 2018 1:27pm azithromycin 250 mg oral tablet (20 sources) Macrolide Antimicrobial Start: 08-01-2010 End: 01-03-2013 AZITHROMYCIN 250 MG TABS two tablets by mouth on day one, and one tablets daily one day 2-5 AZITHROMYCIN [id number] Adiel Azul MD Start: 08-01-2010 End: 01-03-2013 AZITHROMYCIN 250 MG TABS benzonatate 100 mg oral capsule (20 sources) Non-narcotic Antitussive Start: 10-31-2017 End: 04-19-2018 Benzonatate 100 mg capsule Discontinued PO 45 8 0 October 31, 2017 1:00am April 19, 2018 1:26pm Start: 10-31-2017 End: 04-19-2018 Benzonatate Discontinued PO 45 8 October 31, 2017 1:00am April 19, 2018 1:26pm Start: 08-01-2010 End: 03-16-2015 BENZONATATE 100 MG CAPS 1-2 capsules three times a day as needed cough, swallow pill in whole, no crush or chew BENZONATATE [id number] Todd Kinza Carbajal DO fernandez betamethasone 0.5 mg/ml topical cream (20 sources) Corticosteroid Start: 04-12-2012 End: 06-07-2012 BETAMETHASONE DIPROPIONATE AUG 0.05 % CREA apply to affected area twice daily, avoid face, axillary, and groin BETAMETHASONE DIPROPIONATE AUG [id number] Luis Eduardo Sanders MD Start: 04-12-2012 End: 06-07-2012 BETAMETHASONE DIPROPIONATE A UG 0.05 % CREA Calcium Carb-D3-Mag Msd03-Piad [phone] xk-ekeu-mo-mg tablet (17 sources) Start: 10-11-2021 End: 08-14-2023 Calcium Carb-D3-Mag [id number]-Mlwq [phone] wm-wkym-oa-mg tablet Discontinued 1 {tbl} PO DAILY October 11, 2021 1:00am August 14, 2023 11:45am administer with a meal calcium carbonate 625 mg / cholecalciferol 125 unt oral tablet (20 sources) Vitamin D End: 02-23-2015 CALCIUM + D TABS 1200 mg daily CALCIUM-VITAMIN D TABS [id number] Elijah West MD End: 02-23-2015 CALCIUM + D TABS cephalexin 500 mg oral tablet (20 sources) Cephalosporin Antibacterial Start: 02-14-2012 End: 04-30-2012 take 1 tablet by mouth three times daily CEPHALEXIN 500 MG TABS One tablet by mouth three times daily CEPHALEXIN [id number] Luis Eduardo Sanders MD chlorpheniramine (14 sources) Histamine-1 Receptor Antagonist CALCIUM + D TABS 1200 mg daily CALCIUM-VITAMIN D TABS [id number] Janelle Lee MA End: 02-23-2015 CALCIUM + D TABS 1200 mg jake ly CALCIUM-VITAMIN D TABS [id number] Elijah West MD cholecalciferol 0.025 mg oral capsule (20 sources) Vitamin D Start: 07-25-2017 End: 04-19-2018 take 1 capsule by mouth once daily Cholecalciferol (Vitamin D3) 1,000 UNIT capsule Discontinued 1000 U PO DAILY July 25, 2017 12:00am April 19, 2018 1:26pm Start: 07-12-2017 take 1 tablet by zeyad th once daily SM VITAMIN D3 1000 UNIT TABS One tablet by mouth daily CHOLECALCIFEROL [id number] Gilmer Holley MD Start: 07-12-2017 take 1 tablet by zeyad th once daily SM VITAMIN D3 1000 UNIT TABS One tablet by mouth daily CHOLECALCIFEROL [id number] Gilmer Holley MD ciprofloxacin 500 mg oral tablet (20 sources) Quinolone Antimicrobial Start: 04-30-2012 End: 06-17-2012 take 1 tablet by mouth twice daily CIPROFLOXACIN HCL 500 MG TABS One tablet by mouth twice daily CIPROFLOXACIN HCL [id number] Luis Eduardo Sanders MD clopidogrel 75 mg oral tablet (20 sources) P2Y12 Platelet Inhibitor Start: 11-17-2009 End: 09-05-2011 take 1 tablet by mouth once daily PLAVIX 75 MG TABS One tablet by mouth daily CLOPIDOGREL BISULFATE [id number] Magdalena Ashraf RN Codeine / guaiFENesin (20 sources) Opioid Agonist Start: 01-22-2015 End: 03-16-2015 take 5 mL by mouth every four to six hours as needed for cough CHERATUSSIN AC 100-10 MG/5ML SOLN 5ml by mouth every 4-6hr as needed cough, avoid driving or operating machine under the influence of medication. GUAIFENESIN-CODEINE [id number] Todd Carbajal DO Start: 01-22-2015 take 5 mL by mouth e very four to six hours as needed for cough CHERATUSSIN AC 100-10 MG/5ML SOLN 5ml by mouth every 4-6hr as needed cough, avoid driving or operating machine under the influence of medication. GUAIFENESIN-CODEINE [id number] Luis Eduardo Sanders MD Start: 01-22-2015 CHERATUSSIN AC 100-10 MG/5ML SOLN Start: 01-22-2015 End: 03-16-2015 CHERATUSSIN AC 100-10 MG/5ML SOLN Start: 11-08-2012 End: 01-03-2013 take 5 mL by mouth every six hours as needed for cough CHERATUSSIN AC 100-10 MG/5ML SYRP 5ml by mouth every 6hr as needed cough GUAIFENESIN-CODEINE [id number] Luis Eduardo Sanders MD Start: 11-08-2012 End: 01-03-2013 CHERATUSSIN AC 100-10 MG/5ML SYRP colestipol hydrochloride 1000 mg oral tablet (20 sources) Bile Acid Sequestrant Start: 01-03-2013 End: 04-16-2013 take 1 tablet by mouth twice daily COLESTID 1 GM TABS one tablet by mouth twice a day COLESTIPOL HCL [id number] Adiel Azul MD docusate sodium 100 mg oral capsule (20 sources) Start: 01-01-2019 End: 02-18-2019 take 1 capsule by mouth twice daily Docusate Sodium 100 MG capsule Discontinued 100 mg PO TWICE A DAY 0 January 01, 2019 1:00am February 18, 2019 10:49am doxycycline monohydrate 100 mg oral capsule (20 sources) Tetracycline-class Drug Start: 10-31-2017 End: 04-19-2018 take 1 capsule by mouth twice daily Doxycycline Monohydrate 100 mg capsule Discontinued 100 mg PO TWICE A DAY 20 October 31, 2017 1:00am April 19, 2018 1:27pm DULoxetine 30 mg delayed release oral capsule (20 sources) Serotonin and Norepinephrine Reuptake Inhibitor Start: 02-28-2011 End: 06-07-2011 take 1 tablet by mouth once daily CYMBALTA 30 MG CPEP One tablet by mouth daily DULOXETINE HCL [id number] Luis Eduardo Sanders MD ergocalciferol 1.25 mg oral capsule (20 sources) Provitamin D2 Compound Start: 03-09-2014 End: 10-19-2014 ERGOCALCIFEROL 67283 UNIT CAPS one tablet once weekly ERGOCALCIFEROL [id number] Luis Eduardo Sanders MD Start: 03-09-2014 End: 10-19-2014 ERGOCALCIFEROL 73592 UNIT CA PS ezetimibe 10 mg oral tablet (20 sources) Dietary Cholesterol Absorption Inhibitor Start: 08-30-2012 End: 01-03-2013 take 1 tablet by mouth once daily ZETIA 10 MG TABS One tablet by mouth daily EZETIMIBE [id number] Adiel Azul MD Start: 10-09-2011 End: 08-09-2012 take 1 tablet by mouth once daily ZETIA 10 MG TABS 1 po daily EZETIMIBE [id number] Luis Eduardo Sanders MD famotidine 20 mg oral tablet (20 sources) Histamine-2 Receptor Antagonist Start: 11-17-2009 End: 12-21-2009 take 1 tablet by mouth once daily PEPCID 20 MG TABS One tablet by mouth daily FAMOTIDINE [id number] Janelle Lee MA fenofibrate 150 mg oral capsule (20 sources) Peroxisome Proliferator Receptor alpha Agonist Start: 07-25-2017 End: 04-19-2018 take 1 capsule by mouth once daily Fenofibrate 150 MG capsule Discontinued 150 mg PO DAILY July 25, 2017 12:00am April 19, 2018 1:27pm Start: 08-30-2016 take 1 tablet by zeyad th once daily FENOFIBRATE 160 MG TABS One tablet by mouth daily FENOFIBRATE [id number] Ingrid Lopez PA-C Fish Oils (20 sources) Start: 11-17-2009 take 1 tablet by zeyad th twice daily FISH OIL CAPS One tablet by mouth twice daily OMEGA-3 FATTY ACIDS CAPS [id number] Luis Eduardo Sanders MD Start: 11-17-2009 End: 02-23-2015 take 1 tablet by mouth twice daily FISH OIL CAPS One tablet by mouth twice daily OMEGA-3 FATTY ACIDS CAPS [id number] Elijah West MD Start: 11-17-2009 take 1 tablet by zeyad th once daily FISH OIL CAPS One tablet by mouth daily OMEGA-3 FATTY ACIDS CAPS [id number] Tess Pascale RN Start: 11-17-2009 take 1 tablet by zeyad th once daily FISH OIL CAPS One tablet by mouth daily OMEGA-3 FATTY ACIDS CAPS [id number] Magdalena Mejia Pascale RN Start: 11-17-2009 take 1 tablet by zeyad th twice daily FISH OIL CAPS One tablet by mouth twice daily OMEGA-3 FATTY ACIDS CAPS [id number] Luis Eduardo Sanders MD Start: 11-17-2009 End: 02-23-2015 take 1 tablet by mouth twice daily FISH OIL CAPS One tablet by mouth twice daily OMEGA-3 FATTY ACIDS CAPS [id number] Elijah West MD Start: 11-17-2009 FISH OIL CAPS Start: 11-17-2009 End: 02-23-2015 FISH OIL CAPS FLUoxetine 20 mg oral tablet (20 sources) Serotonin Reuptake Inhibitor Start: 10-19-2014 End: 11-23-2014 take 1 tablet by mouth once daily FLUOXETINE HCL 20 MG TABS One tablet by mouth daily FLUOXETINE HCL [id number] Luis Eduardo Sanders MD Start: 09-09-2010 End: 06-07-2011 take 1 tablet by mouth once daily PROZAC 20 MG CAPS One tablet by mouth daily FLUOXETINE HCL [id number] Luis Eduardo Sanders MD Fluticasone Propion-Salmeterol (20 sources) Corticosteroid, beta2-Adrenergic Agonist Start: 10-31-2019 End: 05-18-2020 Fluticasone Propion-Salmeterol (Advair Diskus) 500-50 mcg/dose blister with device Discontinued 1 INH INHALATION TWICE A DAY October 31, 2019 4:46pm May 18, 2020 9:41am Start: 10-31-2019 End: 05-18-2020 Fluticasone Propion-Salmeter ol (Advair Diskus) 500-50 mcg/dose blister with device Discontinued 1 NMA INHALATION TWICE A DAY 60 October 31, 2019 1:00am May 18, 2020 9:41am Start: 10-31-2019 End: 05-18-2020 Fluticasone Propion-Salmeter ol (Advair Diskus) 500-50 mcg/dose blister with device Discontinued 1 INH INHALATION TWICE A DAY 60 October 31, 2019 12:00am May 18, 2020 8:41am Start: 10-31-2019 End: 05-18-2020 Fluticasone Propion-Salmeter ol (Advair Diskus) 500-50 mcg/dose blister with device Discontinued 1 INH INHALATION TWICE A DAY 60 October 31, 2019 1:00am May 18, 2020 9:41am Fluticasone Furoate-Vilanterol (20 sources) Corticosteroid, beta2-Adrenergic Agonist Start: 10-24-2019 End: 10-31-2019 Fluticasone Furoate-Vilanterol (Breo Ellipta) 200-25 mcg/dose blister with device Discontinued 1 INH INHALATION daily 60 October 24, 2019 2:13pm October 31, 2019 4:46pm after inhalation, rinse mouth with water and spit out; do not swallow Start: 10-24-2019 End: 10-24-2019 Fluticasone Furoate-Vilanter ol (Breo Ellipta) 200-25 mcg/dose blister with device Discontinued 1 INH INHALATION daily 60 October 24, 2019 2:05pm October 24, 2019 2:12pm after inhalation, rinse mouth with water and spit out; do not swallow Start: 10-24-2019 End: 10-24-2019 Fluticasone Furoate-Vilanter ol (Breo Ellipta) 200-25 mcg/dose blister with device Discontinued 1 NMA INHALATION daily 60 6 October 24, 2019 1:00am October 24, 2019 2:12pm after inhalation, rinse mouth with water and spit out; do not swallow Start: 10-24-2019 End: 10-31-2019 Fluticasone Furoate-Vilanter ol (Breo Ellipta) 200-25 mcg/dose blister with device Discontinued 1 NMA INHALATION daily 60 October 24, 2019 1:00am October 31, 2019 4:46pm after inhalation, rinse mouth with water and spit out; do not swallow Start: 10-24-2019 End: 10-24-2019 Fluticasone Furoate-Vilanter ol (Breo Ellipta) 200-25 mcg/dose blister with device Discontinued 1 INH INHALATION daily 60 October 24, 2019 12:00am October 24, 2019 1:12pm after inhalation, rinse mouth with water and spit out; do not swallow Start: 10-24-2019 End: 10-31-2019 Fluticasone Furoate-Vilanter ol (Breo Ellipta) 200-25 mcg/dose blister with device Discontinued 1 INH INHALATION daily 60 October 24, 2019 12:00am October 31, 2019 3:46pm after inhalation, rinse mouth with water and spit out; do not swallow Start: 10-24-2019 End: 10-24-2019 Fluticasone Furoate-Vilanter ol (Breo Ellipta) 200-25 mcg/dose blister with device Discontinued 1 INH INHALATION daily 60 October 24, 2019 1:00am October 24, 2019 2:12pm after inhalation, rinse mouth with water and spit out; do not swallow Start: 10-24-2019 End: 10-31-2019 Fluticasone Furoate-Vilanter ol (Breo Ellipta) 200-25 mcg/dose blister with device Discontinued 1 INH INHALATION daily 60 October 24, 2019 1:00am October 31, 2019 4:46pm after inhalation, rinse mouth with water and spit out; do not swallow FOLIC ACID TABS (20 sources) Start: 03-09-2014 take 2 tablets by mo uth twice daily FA-8 TABS Two tablets by mouth twice daily FOLIC ACID TABS [id number] Luis Eduardo Sanders MD Start: 03-09-2014 End: 10-19-2014 take 2 tablets by mouth twice daily FA-8 TABS Two tablets by mouth twice daily FOLIC ACID TABS [id number] Luis Eduardo Sanders MD Start: 03-09-2014 take 2 tablets by mo uth twice daily FA-8 TABS Two tablets by mouth twice daily FOLIC ACID TABS [id number] Luis Eduardo Sanders MD Start: 03-09-2014 End: 10-19-2014 take 2 tablets by mouth twice daily FA-8 TABS Two tablets by mouth twice daily FOLIC ACID TABS [id number] Luis Eduardo Sanders MD Start: 03-09-2014 FA-8 TABS Start: 03-09-2014 End: 10-19-2014 FA-8 TABS furosemide 40 mg oral tablet (20 sources) Loop Diuretic Start: 03-19-2025 End: 05-19-2025 take 1 tablet by mouth once daily in the morning Furosemide (Lasix) 40 mg tablet Discontinued 40 mg PO EVERY MORNING 90 April 21, 2025 3:51pm May 19, 2025 1:06pm Start: 02-23-2015 End: 05-21-2018 take 1 tablet by mouth twice daily Furosemide 40 MG tablet Discontinued 40 mg PO TWICE DAILY July 25, 2017 12:00am May 21, 2018 2:52pm Start: 08-06-2013 End: 11-17-2014 take 1 tablet by mouth once daily LASIX 40 MG TABS One tablet by mouth daily FUROSEMIDE [id number] Ingrid Lopez PA-C Start: 11-17-2009 End: 08-01-2010 take 1 tablet by mouth twice daily LASIX 20 MG TABS One tablet by mouth twice a day FUROSEMIDE [id number] Magdalena Ashraf RN gabapentin 100 mg oral capsule (12 sources) Anti-epileptic Agent Start: 05-28-2025 End: 07-20-2025 take 1 capsule by mouth three times daily Gabapentin 100 mg capsule Discontinued 100 mg PO THREE TIMES A DAY May 28, 2025 12:00am July 20, 2025 11:17am GUAIFENESIN-CODEI NE (20 sources) Start: 01-22-2015 take 5 mL by mouth every four to six hours as needed for cough CHERATUSSIN AC 100-10 MG/5ML SOLN 5ml by mouth every 4-6hr as needed cough, avoid driving or operating machine under the influence of medication. GUAIFENESIN-CODEIN E [id number] Luis Eduardo Sanders MD Start: 01-22-2015 End: 03-16-2015 take 5 mL by mouth every four to six hours as needed for cough CHERATUSSIN AC 100-10 MG/5ML SOLN 5ml by mouth every 4-6hr as needed cough, avoid driving or operating machine under the influence of medication. GUAIFENESIN-CODEINE [id number] Todd Carbajal DO hydrOXYzine hydrochloride 25 mg oral tablet (20 sources) Antihistamine Start: 07-22-2020 End: 10-15-2020 take 1 tablet by mouth twice daily as needed Hydroxyzine Hcl 25 mg tablet Discontinued 25 mg PO TWICE A DAY as needed July 22, 2020 12:00am October 15, 2020 2:04pm ipratropium bromide 0.042 mg/actuat metered dose nasal spray (20 sources) Anticholinergic Start: 10-31-2017 End: 09-28-2019 Ipratropium Union 42 mcg (0.06 %) spray,non-aerosol Discontinued 0 NMA INTRANASAL DAILY October 31, 2017 1:00am September 28, 2019 7:18pm runny nose Please contact the information source for Protocol details. Start: 01-27-2015 IPRATROPIUM BR OMIDE 0.06 % SOLN 2 spray each nostril as needed IPRATROPIUM BROMIDE [id number] Luis Eduardo Sanders MD Start: 01-27-2015 End: 08-27-2015 IPRATROPIUM BROMIDE 0.06 % S OLN 2 spray each nostril as needed IPRATROPIUM BROMIDE [id number] Ingrid Lopez PA-C Start: 01-27-2015 IPRATROPIUM BR OMIDE 0.06 % SOLN 2 spray each nostril as needed IPRATROPIUM BROMIDE [id number] Luis Eduardo Sanders MD Start: 01-27-2015 End: 08-27-2015 IPRATROPIUM BROMIDE 0.06 % S OLN 2 spray each nostril as needed IPRATROPIUM BROMIDE [id number] Ingrid Lopez PA-C Start: 01-27-2015 IPRATROPIUM BR OMIDE 0.06 % SOLN Start: 01-27-2015 End: 08-27-2015 IPRATROPIUM BROMIDE 0.06 % S OLN 200 actuat levalbuterol 0.045 mg/actuat metered dose inhaler (20 sources) beta2-Adrenergic Agonist Start: 02-04-2010 End: 10-19-2010 XOPENEX HFA 45 MCG/ACT AERO 2 puff every 6hr as needed dyspnea LEVALBUTEROL TARTRATE [id number] Luis Eduardo Sanders MD Start: 02-04-2010 End: 10-19-2010 XOPENEX HFA 45 MCG/ACT AERO lidocaine 0.05 mg/mg topical ointment (20 sources) Antiarrhythmic, Amide Local Anesthetic Start: 08-09-2012 End: 08-12-2014 LIDOCAINE 5 % OINT apply to affected area every 3-4 hour as needed pain LIDOCAINE [id number] Luis Eduardo Sanders MD Start: 08-09-2012 End: 08-12-2014 LIDOCAINE 5 % OINT lisinopril 2.5 mg oral tablet (20 sources) Angiotensin Converting Enzyme Inhibitor Start: 02-18-2019 End: 09-28-2019 take 1 tablet by mouth once daily Lisinopril 2.5 mg tablet Discontinued 2.5 mg PO DAILY 90 3 April 14, 2019 9:14am September 28, 2019 7:18pm blood pressure Start: 07-23-2018 End: 02-18-2019 take 1 tablet by mouth once daily Lisinopril 5 mg tablet Discontinued 5 mg PO DAILY 90 3 July 23, 2018 12:02pm February 18, 2019 11:18am blood pressure Start: 07-19-2018 End: 07-23-2018 take 1 tablet by mouth once daily Lisinopril 10 mg tablet Discontinued 10 mg PO DAILY July 19, 2018 11:19am July 23, 2018 12:03pm Start: 06-07-2011 End: 07-19-2018 take 1 tablet by mouth twice daily Lisinopril 10 MG tablet Discontinued 10 mg PO TWICE A DAY November 02, 2013 1:00am July 19, 2018 11:20am Start: 06-07-2011 LISINOPRIL 10 MG TABS Start: 06-07-2011 take 1 tablet by zeyad th once daily LISINOPRIL 10 MG TABS One tablet by mouth daily LISINOPRIL [id number] Ingrid Lopez PA-C Start: 04-03-2011 take 1 tablet by zeyad th once daily LISINOPRIL 20 MG TABS One tablet by mouth daily LISINOPRIL [id number] Luis Eduardo Sanders MD Start: 11-17-2009 take 1 tablet by zeyad th twice daily LISINOPRIL 5 MG TABS One tablet by mouth twice a day LISINOPRIL [id number] Magdalena Ashraf RN loratadine 10 mg oral tablet (20 sources) Start: 07-13-2020 End: 01-21-2021 take 1 tablet by mouth once daily Loratadine 10 MG tablet Discontinued 10 mg PO DAILY 5 0 July 13, 2020 12:00am January 21, 2021 11:35am LORazepam 0.5 mg oral tablet (20 sources) Benzodiazepine Start: 10-19-2014 End: 03-16-2015 take 1 tablet by mouth once daily as needed for anxiety LORAZEPAM 0.5 MG TABS One tablet by mouth daily as needed anxiety or panic attack LORAZEPAM [id number] Luis Eduardo Sanders MD Magnesium (20 sources) Start: 04-25-2024 End: 03-19-2025 take 1 tablet by mouth once daily Magnesium 250 mg tablet Discontinued 250 mg PO DAILY April 25, 2024 12:00am March 19, 2025 8:33am Start: 09-28-2019 End: 10-11-2021 take 250 mg by mouth once daily Magnesium Discontinued 250 MG PO DAILY September 28, 2019 7:17pm October 11, 2021 11:00am Start: 09-28-2019 End: 10-11-2021 take 1 tablet by mouth once daily Magnesium 250 mg tablet Discontinued 250 mg PO DAILY September 28, 2019 1:00am October 11, 2021 11:00am Start: 09-28-2019 End: 10-11-2021 take 250 mg by mouth once daily Magnesium Discontinued 250 MG PO DAILY September 28, 2019 12:00am October 11, 2021 10:00am Start: 09-28-2019 End: 10-11-2021 take 250 mg by mouth once daily Magnesium Discontinued 250 MG PO DAILY September 28, 2019 1:00am October 11, 2021 11:00am magnesium citrate 100 mg ora l tablet (20 sources) Start: 02-14-2022 End: 04-28-2022 Magnesium Citrate 100 mg tab let Discontinued 250 mg PO DAILY February 14, 2022 12:00am April 28, 2022 11:19am Start: 02-14-2022 End: 04-28-2022 take 250 mg by mouth once daily Magnesium Citrate Discontinued 250 MG PO DAILY February 14, 2022 12:00am April 28, 2022 11:19am methocarbamol 500 mg oral tablet (17 sources) Muscle Relaxant Start: 03-19-2025 End: 04-27-2025 take 1 tablet by mouth three times daily Methocarbamol 500 mg tablet Discontinued 500 mg PO THREE TIMES A DAY March 19, 2025 12:00am April 27, 2025 12:56pm Methotrexate (20 sources) Folate Analog Metabolic Inhibitor Start: 03-09-2014 End: 08-12-2014 METHOTREXATE TABS 5 tablets once weekly METHOTREXATE SODIUM TABS [id number] Ingrid Lopez PA-C Start: 03-09-2014 METHOTREXATE T ABS 5 tablets once weekly METHOTREXATE SODIUM TABS [id number] Luis Eduardo Sanders MD Start: 03-09-2014 METHOTREXATE T ABS 5 tablets once weekly METHOTREXATE SODIUM TABS [id number] Luis Eduardo Sanders MD Start: 03-09-2014 End: 08-12-2014 METHOTREXATE TABS 5 tablets once weekly METHOTREXATE SODIUM TABS [id number] Ingrid Lopez PA-C Start: 03-09-2014 METHOTREXATE T ABS Start: 03-09-2014 End: 08-12-2014 METHOTREXATE TABS metroNIDAZOLE 500 mg oral tablet (20 sources) Nitroimidazole Antimicrobial Start: 06-07-2012 End: 06-17-2012 take 1 tablet by mouth three times daily METRONIDAZOLE 500 MG TABS One tablet by mouth three times daily METRONIDAZOLE [id number] Luis Eduardo Sanders MD Molnupiravir (6 sources) Start: 02-08-2022 End: 02-13-2022 take 800 mg by mouth every twelve hours Molnupiravir Discontinued 800 MG PO Q12H 40 February 08, 2022 1:26pm February 13, 2022 12:03am Start: 02-08-2022 End: 02-08-2022 take 800 mg by mouth every twelve hours Molnupiravir Discontinued 800 MG PO Q12H 40 February 08, 2022 12:51pm February 08, 2022 1:10pm Start: 02-08-2022 End: 02-08-2022 take 800 mg by mouth every twelve hours Molnupiravir Discontinued 800 MG PO Q12H 40 February 08, 2022 12:00am February 08, 2022 1:10pm Start: 02-08-2022 End: 02-13-2022 take 800 mg by mouth every twelve hours Molnupiravir Discontinued 800 MG PO Q12H 40 5 February 08, 2022 12:00am February 13, 2022 12:03am Molnupiravir (20 sources) Start: 02-08-2022 End: 02-08-2022 take 1 capsule by mouth every twelve hours Molnupiravir 200 mg capsule Discontinued 800 mg PO Q12H 40 5 0 February 08, 2022 12:00am February 12, 2022 12:00am February 08, 2022 1:10pm Start: 02-08-2022 End: 02-13-2022 take 1 capsule by mouth every twelve hours Molnupiravir 200 mg capsule Discontinued 800 mg PO Q12H 40 5 0 February 08, 2022 12:00am February 12, 2022 12:00am February 13, 2022 12:03am Start: 02-08-2022 End: 02-08-2022 take 800 mg by mouth every twelve hours Molnupiravir Discontinued 800 MG PO Q12H 40 5 February 07, 2022 11:00pm February 08, 2022 12:10pm Start: 02-08-2022 End: 02-13-2022 take 800 mg by mouth every twelve hours Molnupiravir Discontinued 800 MG PO Q12H 40 5 February 07, 2022 11:00pm February 12, 2022 11:03pm Start: 02-08-2022 End: 02-08-2022 take 800 mg by mouth every twelve hours Molnupiravir Discontinued 800 MG PO Q12H 40 5 February 08, 2022 12:00am February 08, 2022 1:10pm Start: 02-08-2022 End: 02-13-2022 take 800 mg by mouth every twelve hours Molnupiravir Discontinued 800 MG PO Q12H 40 5 February 08, 2022 12:00am February 13, 2022 12:03am MULTIPLE VITAMIN (14 sources) Start: 11-17-2009 End: 06-07-2011 take 1 tablet by mouth once daily MULTIVITAMINS TABS one tablet by mouth daily MULTIPLE VITAMIN [id number] Luis Eduardo Sanders MD Start: 11-17-2009 take 1 tablet by zeyad th once daily MULTIVITAMINS TABS one tablet by mouth daily MULTIPLE VITAMIN [id number] Magdalena Ashraf RN MULTIPLE VITAMIN (20 sources) Start: 11-17-2009 take 1 tablet by mouth once daily MULTIVITAMINS TABS one tablet by mouth daily MULTIPLE VITAMIN [id number] Magdalena Ashraf RN Start: 11-17-2009 End: 06-07-2011 take 1 tablet by mouth once daily MULTIVITAMINS TABS one tablet by mouth daily MULTIPLE VITAMIN [id number] Luis Eduardo Sanders MD Start: 11-17-2009 MULTIVITAMINS TABS Start: 11-17-2009 End: 06-07-2011 MULTIVITAMINS TABS MULTIPLE VITAMINS-MINERALS (14 sources) Start: 04-14-2011 take 1 tablet by mouth once daily CENTRUM TABS One tablet by mouth daily MULTIPLE VITAMINS-MINERALS [id number] Codie Wells Start: 04-14-2011 End: 06-07-2011 take 1 tablet by mouth once daily CENTRUM TABS One tablet by mouth daily MULTIPLE VITAMINS-MINERALS [id number] Luis Eduardo Sanders MD MULTIPLE VITAMINS-MINERALS (20 sources) Start: 04-14-2011 take 1 tablet by mouth once daily CENTRUM TABS One tablet by mouth daily MULTIPLE VITAMINS-MINERALS [id number] Codie Wells Start: 04-14-2011 End: 06-07-2011 take 1 tablet by mouth once daily CENTRUM TABS One tablet by mouth daily MULTIPLE VITAMINS-MINERALS [id number] Luis Eduardo Sanders MD Start: 04-14-2011 take 1 tablet by zeyad th once daily CENTRUM TABS One tablet by mouth daily MULTIPLE VITAMINS-MINERALS [id number] Codie Wells Start: 04-14-2011 End: 06-07-2011 take 1 tablet by mouth once daily CENTRUM TABS One tablet by mouth daily MULTIPLE VITAMINS-MINERALS [id number] Luis Eduardo Sanders MD Start: 04-14-2011 CENTRUM TABS Start: 04-14-2011 End: 06-07-2011 CENTRUM TABS mupirocin 0.02 mg/mg topical ointment (20 sources) RNA Synthetase Inhibitor Antibacterial Start: 09-05-2011 End: 06-20-2012 MUPIROCIN 2 % OINT apply to bilateral nostril 3-4 times daily MUPIROCIN [id number] Luis Eduardo Sanders MD naproxen 250 mg oral tablet (20 sources) Nonsteroidal Anti-inflammatory Drug Start: 11-17-2009 End: 12-21-2009 take 1 tablet by mouth twice daily NAPROSYN 250 MG TABS One tablet by mouth twice daily NAPROXEN [id number] Janelle Lee MA niacin 500 mg extended release oral tablet (20 sources) Nicotinic Acid Start: 11-17-2009 take 1 tablet by mouth at bedtime NIASPAN 500 MG CR-TABS One tablet by mouth @ bedtime NIACIN (ANTIHYPERLIPIDEMI C) [id number] Magdalena Ashraf RN Start: 11-17-2009 take 1 tablet by [facility] at bedtime NIASPAN 500 MG CR-TABS One tablet by mouth @ bedtime NIACIN (ANTIHYPERLIPIDEMIC) [id number] Magdalena Ashraf RN Start: 11-17-2009 NIASPAN 500 MG CR-TABS End: 06-07-2011 take 1 tablet by mouth twice daily NIASPAN 1000 MG CR-TABS One tablet by mouth twice daily NIACIN (ANTIHYPERLIPIDEMIC) [id number] Luis Eduardo Sanders MD take 2 tablets by [facility] at bedtime NIASPAN 500 MG CR-TABS two tablets by mouth @ bedtime NIACIN (ANTIHYPERLIPIDEMIC) [id number] Janelle Lee MA take 2 tablets by mo [facility] at bedtime NIASPAN 500 MG CR-TABS two tablets by mouth @ bedtime NIACIN (ANTIHYPERLIPIDEMIC) [id number] Janelle Lee MA ondansetron 4 mg disintegrating oral tablet (20 sources) Serotonin-3 Receptor Antagonist Start: 06-07-2022 End: 09-19-2022 take 1 tablet by mouth every six hours as needed for nausea Ondansetron 4 mg tablet,disintegrating Discontinued 4 mg PO EVERY 6 HOURS NEEDED as needed for Nausea 15 0 June 07, 2022 1:33am September 19, 2022 2:39pm 24 hr oxybutynin chloride 5 mg extended release oral tablet (20 sources) Cholinergic Muscarinic Antagonist Start: 04-27-2025 End: 07-30-2025 take 1 tablet by mouth once daily Oxybutynin Chloride 5 mg tablet extended release 24hr Discontinued 5 mg PO daily April 27, 2025 12:00am July 30, 2025 8:22am Start: 08-28-2024 End: 03-19-2025 take 1 tablet by mouth once daily Oxybutynin Chloride 5 mg tablet Discontinued 5 mg PO daily August 28, 2024 12:00am March 19, 2025 8:32am Start: 02-04-2010 End: 08-01-2010 take 1 tablet by mouth once daily OXYBUTYNIN CHLORIDE 5 MG TABS One tablet by mouth daily every night OXYBUTYNIN CHLORIDE [id number] Luis Eduardo Sanders MD oxyCODONE hydrochloride 5 mg oral tablet (20 sources) Opioid Agonist Start: 01-01-2019 End: 01-04-2019 take 1 tablet by mouth every four hours as needed for pain Oxycodone 5 MG tablet Discontinued 5 mg PO EVERY 4 HOURS NEEDED as needed for Severe Pain (6-10/10) 10 3 0 January 01, 2019 1:00am January 03, 2019 1:00am January 04, 2019 1:07am Fracture of pubic ramus pantoprazole 40 mg delayed release oral tablet (20 sources) Proton Pump Inhibitor Start: 03-19-2025 End: 07-22-2025 take 1 tablet by mouth once daily Pantoprazole 40 mg tablet,delayed release (DR/EC) Discontinued 40 mg PO daily 90 3 April 27, 2025 3:15pm July 22, 2025 5:18pm microencapsulated potassium chloride 20 meq extended release oral tablet (20 sources) Start: 05-28-2025 End: 05-28-2025 Potassium Chloride (Klor-Con M20) 20 mEq tablet,ER particles/crystals Discontinued 20 meq PO daily May 28, 2025 12:00am May 28, 2025 2:58pm Start: 09-30-2019 End: 01-27-2025 take 1 tablet by mouth once daily Potassium Chloride 20 mEq tablet extended release Discontinued 20 meq PO DAILY 90 3 January 23, 2024 8:12am January 27, 2025 7:47am Start: 09-30-2019 End: 10-13-2019 Potassium Chloride 20 mEq ta blet extended release Discontinued PO 30 0 September 30, 2019 1:00am October 13, 2019 12:17pm Start: 11-17-2009 take 1 tablet by zeyad twice daily KLOR-CON M20 20 MEQ CR-TABS One tablet by mouth twice daily POTASSIUM CHLORIDE KEISHA CR [id number] Magdalena Ashraf RN Start: 11-17-2009 End: 10-19-2010 take 1 tablet by mouth twice daily KLOR-CON M20 20 MEQ CR-TABS One tablet by mouth twice daily POTASSIUM CHLORIDE KEISHA CR [id number] Luis Eduardo Sanders MD Start: 11-17-2009 End: 10-19-2010 take 1 tablet by mouth twice daily KLOR-CON M20 20 MEQ CR-TABS One tablet by mouth twice daily POTASSIUM CHLORIDE KEISHA CR [id number] Magdalena Ashraf RN Start: 11-17-2009 End: 10-19-2010 KLOR-CON M20 20 MEQ CR-TABS pravastatin sodium 40 mg oral tablet (20 sources) HMG-CoA Reductase Inhibitor Start: 10-09-2011 PRAVACHOL 80 MG TABS (PRAVASTATIN SODIUM) Start: 10-09-2011 End: 08-02-2012 PRAVACHOL 80 MG TABS (PRAVAS TATIN SODIUM) Start: 11-29-2010 End: 02-23-2015 take 1 tablet by mouth at bedtime PRAVACHOL 40 MG TABS One tablet by mouth at bedtime. PRAVASTATIN SODIUM [id number] Elijah West MD Start: 11-17-2009 End: 04-16-2013 take 1 tablet by mouth once daily PRAVACHOL 80 MG TABS (PRAVASTATIN SODIUM) One tablet by mouth daily PRAVACHOL 80 MG TABS (PRAVASTATIN SODIUM) Pricilla Hernandez RN predniSONE 20 mg oral tablet (20 sources) Start: 07-02-2024 End: 07-18-2024 take 3 tablets by mouth once daily at mealtime Prednisone 20 mg tablet Discontinued 60 mg PO daily 15 July 02, 2024 1:36pm July 18, 2024 11:18am administer with food or milk Start: 07-27-2022 End: 09-19-2022 take 4 tablets by mouth once daily, then take 3 tablets by mouth once daily, then take 2 tablets by mouth once daily, then take 1 tablet by mouth once daily Prednisone 10 mg tablet Discontinued 10 mg PO DAILY July 27, 2022 12:00am September 19, 2022 2:39pm 4 tablets daily x3 days, then 3 tablets daily x3 days, then 2 tablets daily x3 days, then 1 tablet daily x3 days Start: 07-13-2020 End: 08-23-2020 take 3 tablets by mouth once daily Prednisone 20 MG tablet Discontinued 60 mg PO DAILY July 13, 2020 12:00am August 23, 2020 6:34pm Start: 07-13-2020 End: 08-23-2020 take 60 mg by mouth once daily Prednisone Discontinued 60 MG PO DAILY July 13, 2020 12:00am August 23, 2020 6:34pm Start: 10-24-2019 End: 12-30-2019 take 3 tablets by mouth once daily at mealtime Prednisone 20 mg tablet Discontinued 60 mg PO daily October 24, 2019 1:00am December 30, 2019 11:08am administer with food or milk Start: 10-24-2019 End: 12-30-2019 take 60 mg by mouth once daily at mealtime Prednisone Discontinued 60 MG PO daily October 24, 2019 1:00am December 30, 2019 11:08am administer with food or milk raloxifene hydrochloride 60 mg oral tablet (20 sources) Estrogen Agonist/Antagonist Start: 11-17-2009 End: 02-04-2010 take 1 tablet by mouth once daily EVISTA 60 MG TABS One tablet by mouth daily RALOXIFENE HCL [id number] Magdalena Ashraf RN rosuvastatin calcium 40 mg oral tablet (20 sources) HMG-CoA Reductase Inhibitor Start: 09-22-2013 take 1 tablet by mouth once daily CRESTOR 40 MG TABS One tablet by mouth daily ROSUVASTATIN CALCIUM [id number] Gerda Perkins RN Start: 04-16-2013 End: 07-31-2013 take 1 tablet by mouth once daily CRESTOR 40 MG TABS One tablet by mouth daily ROSUVASTATIN CALCIUM [id number] Gerda Perkins RN solifenacin succinate 5 mg oral tablet (20 sources) Cholinergic Muscarinic Antagonist Start: 08-01-2010 End: 06-07-2011 take 1 tablet by mouth once daily VESICARE 5 MG TABS One tablet by mouth daily SOLIFENACIN SUCCINATE [id number] Luis Eduardo Sanders MD spironolactone 25 mg oral tablet (20 sources) Aldosterone Antagonist Start: 03-19-2025 End: 05-28-2025 take 1 tablet by mouth once daily Spironolactone 25 mg tablet Discontinued 25 mg PO daily 90 May 19, 2025 1:06pm May 28, 2025 2:56pm Pt never received RX sent on 04/20/25 Start: 08-28-2018 End: 09-30-2019 take 1 tablet by mouth once daily Spironolactone 25 mg tablet Discontinued 25 mg PO DAILY 90 3 October 03, 2018 4:54pm September 30, 2019 5:45pm [facility] sulfamethoxazole 800 mg / trimethoprim 160 mg oral tablet (20 sources) Dihydrofolate Reductase Inhibitor Antibacterial, Sulfonamide Antimicrobial Start: 04-19-2018 End: 04-22-2018 Sulfamethoxazole-Trimethopri m (Bactrim Ds) 800-160 mg tablet Discontinued 1 {tbl} PO TWICE A DAY 6 3 0 April 19, 2018 12:00am April 21, 2018 12:00am April 22, 2018 12:07am Start: 02-14-2012 End: 04-30-2012 take 1 tablet by mouth twice daily SULFAMETHOXAZOLE-TRIMETHOPRIM 800-160 MG TABS One tablet by mouth twice daily SULFAMETHOXAZOLE-TRIMETHOPRIM [id number] Luis Eduardo Sanders MD Start: 02-14-2012 End: 04-30-2012 SULFAMETHOXAZOLE-TRIMETHOPRI M 800-160 MG TABS tamsulosin hydrochloride 0.4 mg oral capsule (20 sources) alpha-Adrenergic Nanette Start: 03-19-2025 End: 05-28-2025 take 1 capsule by mouth once daily Tamsulosin 0.4 mg capsule Discontinued 0.4 mg PO daily 90 May 19, 2025 1:05pm May 28, 2025 2:58pm Pt never received RX sent on 04/20/25 24 hr tolterodine tartrate 4 mg extended release oral capsule (20 sources) Cholinergic Muscarinic Antagonist Start: 11-17-2009 End: 12-21-2009 take 1 tablet by mouth once daily DETROL LA 4 MG [id number] One tablet by mouth daily TOLTERODINE TARTRATE [id number] Janelle Lee MA Start: 11-17-2009 End: 12-21-2009 DETROL LA 4 MG [id number] torsemide 20 mg oral tablet (20 sources) Loop Diuretic Start: 09-04-2024 End: 03-19-2025 take 1 tablet by mouth twice daily Torsemide 20 mg tablet Discontinued 20 mg PO TWICE A DAY 180 September 04, 2024 4:54pm March 19, 2025 8:32am SOB, Edema CHF Start: 08-28-2024 End: 09-04-2024 take 1 tablet by mouth once daily Torsemide 20 mg tablet Discontinued 20 mg PO daily August 28, 2024 11:03am September 04, 2024 4:54pm SOB, Edema CHF Start: 07-18-2024 End: 08-28-2024 take 1 tablet by mouth twice daily Torsemide 20 mg tablet Discontinued 20 mg PO TWICE A DAY 180 July 18, 2024 2:04pm August 28, 2024 11:03am SOB, Edema CHF Start: 05-03-2022 End: 07-18-2024 take 1 tablet by mouth once daily as needed for edema Torsemide 20 mg tablet Discontinued 20 mg PO DAILY as needed for SOB, Edema 90 August 20, 2023 10:32am July 18, 2024 2:05pm CHF Start: 04-28-2022 End: 05-03-2022 take 10 mg by mouth once daily Torsemide 20 mg tablet Discontinued 10 mg PO DAILY April 28, 2022 11:45am May 03, 2022 3:40pm CHF Start: 04-28-2022 End: 05-03-2022 take 10 mg by mouth once daily Torsemide Discontinued 10 MG PO DAILY April 28, 2022 11:45am May 03, 2022 3:40pm CHF Start: 10-19-2020 End: 04-28-2022 take 1 tablet by mouth once daily Torsemide 20 mg tablet Discontinued 20 mg PO DAILY 90 October 28, 2020 3:35pm August 16, 2021 12:15pm [facility] Start: 05-11-2019 End: 10-19-2020 take 1 tablet by mouth twice daily Torsemide 20 mg tablet Discontinued 20 mg PO TWICE A DAY 60 February 10, 2020 10:15am October 19, 2020 2:35pm [facility] Start: 08-12-2018 End: 05-11-2019 take 1 tablet by mouth twice daily Torsemide 10 mg tablet Discontinued 10 mg PO TWICE A DAY 180 October 03, 2018 4:53pm May 11, 2019 11:58am [facility] Start: 07-23-2018 End: 08-12-2018 take 1 tablet by mouth once daily Torsemide 10 mg tablet Discontinued 10 mg PO DAILY August 12, 2018 12:00am August 12, 2018 8:52am Start: 05-21-2018 End: 07-23-2018 take 1 tablet by mouth twice daily Torsemide 10 mg tablet Discontinued 10 mg PO TWICE A DAY 60 May 21, 2018 12:00am July 23, 2018 12:03pm traMADol hydrochloride 50 mg oral tablet (20 sources) Opioid Agonist Start: 03-19-2025 End: 05-28-2025 take 1 tablet by mouth twice daily as needed Tramadol 50 mg tablet Discontinued 50 mg PO TWICE A DAY as needed March 19, 2025 12:00am May 28, 2025 2:58pm Start: 05-19-2013 End: 11-06-2013 take 1 tablet by mouth twice daily as needed for pain TRAMADOL HCL 50 MG TABS One tablet by mouth twice daily as needed pain TRAMADOL HCL [id number] Luis Eduardo Sanders MD Start: 05-19-2013 End: 03-16-2015 take 1 tablet by mouth three times daily as needed for pain TRAMADOL HCL 50 MG TABS One tablet by mouth three times daily as needed pain, avoid driving or operating machine under the influence of medication. TRAMADOL HCL [id number] Todd Carbajal DO triamcinolone acetonide 1 mg/ml topical cream (20 sources) Corticosteroid Start: 09-19-2022 End: 08-07-2023 Triamcinolone Acetonide 0.1 % cream Discontinued 1 NMA TOPICAL DAILY as needed September 19, 2022 2:39pm August 07, 2023 9:34am Start: 08-16-2021 End: 08-07-2023 Triamcinolone Acetonide 0.1 % cream Discontinued 1 NMA TOPICAL DAILY August 16, 2021 12:00am September 19, 2022 2:40pm Start: 01-13-2015 End: 07-12-2017 TRIAMCINOLONE ACETONIDE 0.1 % CREA apply to affected area twice daily as needed, avoid face, axillary, and groin area TRIAMCINOLONE ACETONIDE [id number] Luis Eduardo Sanders MD Start: 01-13-2015 TRIAMCINOLONE ACETONIDE 0.1 % CREA 7 actuat umeclidinium 0.0625 mg/actuat / vilanterol 0.025 mg/actuat dry powder inhaler (20 sources) Anticholinergic, beta2-Adrenergic Agonist Start: 10-24-2019 End: 10-24-2019 Umeclidinium-Vilanterol (Anoro Ellipta) 62.5-25 mcg/actuation blister with device Discontinued 1 NMA INHALATION daily 60 3 October 24, 2019 1:00am October 24, 2019 2:05pm Start: 10-24-2019 End: 10-24-2019 Umeclidinium-Vilanterol (Ano ro Ellipta) 62.5-25 mcg/actuation blister with device Discontinued 1 INH INHALATION daily 60 October 24, 2019 1:00am October 24, 2019 2:05pm warfarin sodium 6 mg oral tablet (20 sources) Vitamin K Antagonist Start: 06-23-2019 End: 04-09-2020 take 4 mg by mouth once daily, then take 1 tablet by mouth every month Warfarin 6 mg tablet Discontinued 6 mg PO DAILY Protocol: Patient Instructed to take:warfarin 4 mg (2 Tabs) on TUwarfarin 6 mg (1 Tab) on MARTINES, MO, WE, TH, FR, SA 90 3 June 23, 2019 11:49am April 09, 2020 5:23pm afib Please contact the information source for Protocol details. Start: 01-20-2019 End: 04-09-2020 Warfarin 4 MG tablet Discont inued 8 mg PO MARTINES Protocol: Patient Instructed to take:warfarin 4 mg (2 Tabs) on TUwarfarin 6 mg (1 Tab) on MARTINES, MO, WE, TH, FR, SA June 19, 2019 8:29am April 09, 2020 5:23pm 8 mg PO on Sunday: take 6 mg all other days of the week; Please contact the information source for Protocol details. Start: 01-20-2019 End: 04-09-2020 Warfarin Discontinued 8 MG P O MARTINES June 19, 2019 8:29am April 09, 2020 5:23pm 8 mg PO on Sunday: take 6 mg all other days of the week; Start: 08-20-2018 End: 01-20-2019 Warfarin 6 MG tablet Discont inued 6 mg PO DAILY Protocol: Patient Instructed to take:warfarin 4 mg (2 Tabs) on MOwarfarin 6 mg (1 Tab) on MARTINES, TU, WE, TH, , August 20, 2018 9:38am January 20, 2019 7:21pm afib Please contact the information source for Protocol details. Start: 02-29-2016 End: 07-22-2018 take 1 tablet by mouth two times weekly, then take 6 mg by mouth every month Warfarin (Coumadin) 4 mg tablet Discontinued 4 mg PO TWICE A WEEK Protocol: Patient Instructed to take:warfarin 4 mg (2 Tabs) on SAwarfarin 6 mg (1 Tab) on MARTINES, MO, TU, WE, TH, FR October 24, 2017 1:00am July 22, 2018 2:33pm Please contact the information source for Protocol details. Start: 09-02-2014 End: 10-24-2017 Warfarin Discontinued 4 MG P O SUSA September 02, 2014 1:00am October 24, 2017 1:02pm Start: 11-02-2013 End: 07-22-2018 Warfarin 6 MG tablet Discont inued 4 mg PO SUSA September 02, 2014 1:00am October 24, 2017 1:02pm Start: 10-18-2012 COUMADIN 4 MG TABS Sunday through : take a 6 mg tablet; Fri and Sat take a 6 mg and 1/2 of a 4 to = 8 mg WARFARIN SODIUM [id number] Elijah West MD Start: 10-09-2011 End: 04-09-2020 take 1 tablet by mouth once daily Warfarin 6 mg tablet Discontinued 6 mg PO DAILY Protocol: Patient Instructed to take:warfarin 6 mg (1 Tab) on MARTINES, MO, TU, WE, TH, FR, SA June 23, 2019 11:45am June 23, 2019 11:50am afib Please contact the information source for Protocol details. Start: 10-09-2011 End: 11-04-2015 COUMADIN 4 MG TABS Take as directed-current dose 2 tablets by mouth Sun, 1.5 tablets by mouth Mon-Sat. at supper WARFARIN SODIUM [id number] Gerda Perkins RN Start: 10-09-2011 WARFARIN SODIU M 6 MG TABS (WARFARIN SODIUM) Start: 07-24-2011 WARFARIN SODIU M 1 MG TABS WARFARIN SODIUM [id number] Jasmina Hernandez Start: 11-17-2009 End: 11-29-2010 WARFARIN SODIUM 1 MG TABS 20 09/06/26 WARFARIN SODIUM [id number] Jasmina Hernandez Start: 11-17-2009 End: 11-29-2010 COUMADIN 5 MG TABS Take as d irected WARFARIN SODIUM [id number] Magdalena Ashraf RN Problems Active Problems Problem Classification Problem Date Documented Date Episodic/Chronic Acute cerebrovascular disease (9 sources) Intracranial hemorrhage; Translations: [Nontraumatic intracranial hemorrhage, unspecified] Onset: 08-17-2025 07-22-2025 Chronic Allergic reactions (14 sources) Atopic dermatitis; Translations: [Allergic contact dermatitis, unspecified cause] Onset: 04-12-2012 Resolved: 06-07-2012 06-07-2012 Chronic Allergic reactions (20 sources) Atopic dermatitis; Translations: [Allergic contact dermatitis, unspecified cause] Onset: 04-12-2012 Resolved: 06-07-2012 06-07-2012 Episodic Anxiety disorders (20 sources) Acute stress disorder; Translations: [Mixed anxiety and depressive disorder] Onset: 09-09-2010 Resolved: 03-16-2015 03-16-2015 Chronic Cardiac dysrhythmias (20 sources) Pulse irregular; Translations: [Cardiac arrhythmia, unspecified] Onset: 07-22-2010 Resolved: 06-07-2011 07-22-2010 Chronic Cardiac dysrhythmias (20 sources) Atrial fibrillation; Translations: [Ventricular premature beats] Onset: 11-17-2009 Resolved: 06-07-2011 06-07-2011 Chronic Comment on above: History of AV node a blation; Chronic obstructive pulmonary disease and bronchiectasis (20 sources) Asthma-chronic obstructive pulmonary disease overlap syndrome; Translations: [Chronic obstructive pulmonary disease, unspecified] Onset: 05-28-2025 Chronic Conduction disorders (20 sources) Cardiac pacemaker in situ; Translations: [Presence of cardiac pacemaker] Onset: 02-18-2013 02-18-2013 Chronic Comment on above: 2012, gen change 201 8 Congestive heart failure; nonhypertensive (20 sources) Chronic diastolic heart failure; Translations: [Chronic diastolic (congestive) heart failure] Chronic Coronary atherosclerosis and other heart disease (20 sources) Prinzmetal angina; Translations: [Coronary arteriosclerosis] Onset: 11-17-2009 08-31-2016 Chronic Deficiency and other anemia (1 source) Anemia, unspecified; Translations: [Anemia, unspecified] Onset: 08-21-2025 Episodic Disorders of lipid metabolism (20 sources) Hyperlipidemia; Translations: [Hyperlipidemia, unspecified] Onset: 11-17-2009 11-17-2009 Chronic Diverticulosis and diverticulitis (20 sources) Diverticular disease; Translations: [Diverticulosis of intestine, part unspecified, without perforation or abscess without bleeding] Onset: 06-07-2012 06-07-2012 Chronic E Codes: Fall (9 sources) Fall from steps ; Translations: [Fall (on) (from) other stairs and steps, initial encounter] Onset: 07-22-2025 07-22-2025 Episodic Essential hypertension (20 sources) Labile hypertension; Translations: [Hypertensive disorder] Onset: 11-17-2009 11-06-2013 Chronic Fracture of neck of femur (hip) (16 sources) Fracture of bone of hip region; Translations: [Fracture of unspecified part of neck of left femur, initial encounter for closed fracture] 04-27-2025 Episodic Gout and other crystal arthropathies (20 sources) Gout; Translations: [Gout, unspecified] 08-07-2023 Chronic Intracranial injury (1 source) Traumatic subarachnoid hemorrhage without loss of consciousness, initial encounter; Translations: [Subarachnoid hemorrhage following injury, no loss of consciousness, initial encounter ([facility])] Onset: 07-23-2025 Episodic Malaise and fatigue (20 sources) Fatigue; Translations: [Other fatigue] Onset: 11-29-2010 Resolved: 03-16-2015 08-05-2013 Episodic Nausea and vomiting (20 sources) Nausea, vomiting and diarrhea; Translations: [Nausea with vomiting, unspecified] 06-15-2022 Episodic Nutritional deficiencies (20 sources) Vitamin D deficiency; Translations: [Vitamin D deficiency, unspecified] 08-14-2023 Chronic Occlusion or stenosis of precerebral arteries (20 sources) Bilateral atherosclerosis of carotid arteries; Translations: [Occlusion and stenosis of bilateral carotid arteries] 08-07-2023 Chronic Open wounds of head; neck; and trunk (9 sources) Scalp laceration; Translations: [Laceration without foreign body of scalp, initial encounter] Onset: 07-27-2025 07-22-2025 Episodic Osteoarthritis (20 sources) Osteoarthritis; Translations: [Arthritis] Onset: 05-19-2013 05-19-2013 Chronic Osteoporosis (20 sources) Osteoporosis; Translations: [Age-related osteoporosis without current pathological fracture] Onset: 11-17-2009 11-17-2009 Chronic Other aftercare (20 sources) Long-term current use of anticoagulant; 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] 07-22-2020 Episodic Other aftercare (3 sources) 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; Translations: [Long-term (current) use of anticoagulants] 08-17-2023 Episodic Other connective tissue disease (20 sources) History of repair of hip joint; Translations: [Presence of right artificial hip joint] 08-07-2023 Chronic Other connective tissue disease (3 sources) Presence of right artificial hip joint; Translations: [Hip joint replacement] 08-17-2023 Chronic Other diseases of bladder and urethra (20 sources) Bladder muscle dysfunction - overactive; Translations: [Overactive bladder] Onset: 02-04-2010 02-04-2010 Chronic Other diseases of veins and lymphatics (20 sources) Peripheral venous insufficiency; Translations: [Venous insufficiency (chronic) (peripheral)] 04-04-2022 Episodic Other diseases of veins and lymphatics (9 sources) Venous insufficiency (chronic) (peripheral); Translations: [Venous (peripheral) insufficiency, unspecified] Episodic Other diseases of veins and lymphatics (20 sources) Stasis dermatitis; Translations: [Venous insufficiency (chronic) (peripheral)] 08-07-2023 Episodic Other injuries and conditions due to external causes (20 sources) Contusion; Translations: [Other injury of unspecified body region] Onset: 04-01-2012 Resolved: 06-07-2012 04-02-2012 Episodic Other lower respiratory disease (20 sources) Dyspnea on exertion; Translations: [Cough] Onset: 12-21-2009 Resolved: 03-16-2015 12-21-2009 Episodic Other lower respiratory disease (20 sources) Dyspnea; Translations: [Shortness of breath] Onset: 08-13-2013 Resolved: 03-16-2015 05-17-2015 Episodic Other lower respiratory disease (20 sources) Hypoxia; Translations: [Hypoxemia] 04-27-2025 Episodic Other lower respiratory disease (1 source) Shortness of breath; Translations: [Shortness of breath] Onset: 07-20-2025 Episodic Other nervous system disorders (20 sources) Carpal tunnel syndrome; Translations: [Carpal tunnel syndrome, right upper limb] Onset: 12-21-2009 11-07-2010 Chronic Other nervous system disorders (9 sources) Neuropathy of lower limb; Translations: [Unspecified mononeuropathy of right lower limb] 04-28-2022 Chronic Other nervous system disorders (6 sources) Unspecified mononeuropathy of right lower limb; Translations: [Mononeuritis of lower limb, unspecified] Chronic Other nervous system disorders (17 sources) Right leg peripheral neuropathy; Translations: [Unspecified mononeuropathy of right lower limb] 04-28-2022 Chronic Other non-traumatic joint disorders (20 sources) Pain in right knee; Translations: [Right medial knee pain] Episodic Other non-traumatic joint disorders (20 sources) Carpal instability; Translations: [Other instability, left wrist] 04-14-2023 Episodic Other nutritional; endocrine; and metabolic disorders (20 sources) Body mass index (BMI) 32.0-32.9, adult; Translations: [Body mass index (BMI) 31.0-31.9, adult] Onset: 07-16-2013 Resolved: 08-30-2016 02-10-2014 Chronic Other nutritional; endocrine; and metabolic disorders (20 sources) Body mass index (BMI) 31.0-31.9, adult; Translations: [Body Mass Index 31.0-31.9, adult] Onset: 07-16-2013 Resolved: 08-30-2016 08-30-2016 Chronic Other upper respiratory disease (20 sources) Allergic rhinitis; Translations: [Allergic rhinitis, unspecified] Onset: 02-04-2010 Resolved: 06-07-2011 02-04-2010 Chronic Gloria-; endo-; and myocarditis; cardiomyopathy (except that caused by tuberculosis or sexually transmitted disease) (20 sources) Cardiomyopathy in diseases classified elsewhere; Translations: [Cardiomyopathy] Onset: 08-27-2015 08-27-2015 Chronic Peripheral and visceral atherosclerosis (20 sources) Renal artery stenosis; Translations: [Peripheral vascular disease] 07-29-2012 Chronic Residual codes; unclassified (20 sources) Hypersomnia; Translations: [Hypersomnia, unspecified] Onset: 08-09-2012 08-09-2012 Chronic Residual codes; unclassified (20 sources) Past history of procedure; Translations: [Other specified postprocedural states] 08-07-2023 Episodic Residual codes; unclassified (9 sources) Other specified postprocedural states; Translations: [Other specified personal history presenting hazards to health] Onset: 10-15-2009 08-17-2023 Episodic Respiratory failure; insufficiency; arrest (adult) (20 sources) Hypoxemic respiratory failure; Translations: [Respiratory failure, unspecified with hypoxia] 07-22-2020 Episodic Rheumatoid arthritis and related disease (20 sources) Rheumatoid arthritis; Translations: [Rheumatoid arthritis, unspecified] 08-07-2023 Chronic Skin and subcutaneous tissue infections (20 sources) Cellulitis of ankle; Translations: [Cellulitis of left lower limb] Onset: 02-14-2012 Resolved: 04-02-2012 04-02-2012 Episodic Spondylosis; intervertebral disc disorders; other back problems (20 sources) Degeneration of thoracic intervertebral disc; Translations: [Other intervertebral disc degeneration, thoracic region] 08-07-2023 Chronic Superficial injury; contusion (20 sources) Contusion of lower leg; Translations: [Contusion of unspecified lower leg] Onset: 05-19-2013 Resolved: 03-16-2015 03-16-2015 Episodic Syncope (20 sources) Vasovagal symptom; Translations: [Syncope and collapse] 06-15-2022 Episodic Thyroid disorders (20 sources) Hypothyroidism; Translations: [Hyperthyroidism] Onset: 11-17-2009 Resolved: 08-01-2010 08-01-2010 Chronic Unclassified (20 sources) Long-term drug therapy; Translations: [Long-term (current) use of other medications] Onset: 11-17-2009 Resolved: 07-21-2015 06-07-2011 Unclassified (7 sources) Screening for malignant neoplasm of colon ; Translations: [Encounter for screening for malignant neoplasm of colon] Onset: 06-04-2015 06-04-2015 Unclassified (7 sources) Ablation of atrioventricular node; Translations: [Other specified postprocedural states] Onset: 05-08-2016 05-08-2016 Unclassified (7 sources) Warfarin therapy started; 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] Onset: 10-17-2016 10-17-2016 Unclassified (1 source) Longstanding persistent atrial fibrillation; Translations: [Longstanding persistent atrial fibrillation] Onset: 08-28-2025 Viral infection (20 sources) COVID-19; Translations: [Severe acute respiratory syndrome coronavirus 2 (SARS-CoV-2) detected] Onset: 10-29-2021 Episodic Past or Other Problems Problem Classification Problem Date Documented Date Episodic/Chronic Abdominal pain (20 sources) Abdominal pain; Translations: [Unspecified abdominal pain] Onset: 02-01-2015 Resolved: 03-16-2015 02-01-2015 Episodic Acute bronchitis (20 sources) Acute bronchitis; Translations: [Acute bronchitis, unspecified] Onset: 08-01-2010 Resolved: 11-07-2010 11-07-2010 Episodic Cardiac dysrhythmias (20 sources) Palpitations; Translations: [Palpitations] Onset: 04-14-2011 Resolved: 06-07-2012 04-14-2011 Episodic Coronary atherosclerosis and other heart disease (20 sources) Coronary angioplasty status; Translations: [Percutaneous transluminal coronary angioplasty status] Onset: 07-23-2009 11-17-2009 Episodic Crushing injury or internal injury (20 sources) Injury to unspecified blood vessel of lower extremity; Translations: [Injury to unspecified blood vessel of lower extremity] Onset: 08-05-2012 Resolved: 03-16-2015 08-05-2012 Episodic Fracture of upper limb (20 sources) Fracture of ulna; Translations: [Unspecified fracture of shaft of unspecified ulna] Onset: 03-16-2015 Resolved: 04-05-2015 03-16-2015 Episodic Noninfectious gastroenteritis (20 sources) Chronic diarrhea; Translations: [Noninfective gastroenteritis and colitis, unspecified] Onset: 04-02-2017 04-02-2017 Episodic Nonspecific chest pain (20 sources) Chest discomfort; Translations: [Other chest pain] Onset: 11-17-2009 Resolved: 11-07-2010 11-17-2009 Episodic Other aftercare (20 sources) Warfarin therapy started; Translations: [care home (current) use of anticoagulants] Onset: 10-17-2016 10-17-2016 Episodic Other aftercare (20 sources) Long-term drug therapy; Translations: [Other senior care (current) drug therapy] Onset: 11-17-2009 Resolved: 07-21-2015 07-21-2015 Episodic Other circulatory disease (20 sources) Low blood pressure; Translations: [Hypotension, unspecified] Onset: 04-03-2011 Resolved: 09-05-2011 09-05-2011 Episodic Other circulatory disease (20 sources) Labile hypertension; Translations: [Elevated blood-pressure reading, without diagnosis of hypertension] Onset: 11-06-2013 11-06-2013 Episodic Other connective tissue disease (20 sources) Pain in toe; Translations: [Pain in lower limb] Onset: 11-29-2010 Resolved: 03-30-2015 03-16-2015 Episodic Other connective tissue disease (20 sources) Pain in lower limb; Translations: [Pain in right leg] Onset: 08-09-2012 Resolved: 03-16-2015 03-16-2015 Episodic Other connective tissue disease (20 sources) Fibromyositis; Translations: [Fibromyalgia] Onset: 11-29-2010 11-29-2010 Episodic Other disorders of stomach and duodenum (20 sources) Indigestion; Translations: [Functional dyspepsia] Onset: 02-01-2015 Resolved: 03-16-2015 02-01-2015 Episodic Other ear and sense organ disorders (20 sources) Impacted cerumen; Translations: [Impacted cerumen, right ear] Onset: 01-13-2015 Resolved: 03-16-2015 03-16-2015 Episodic Other inflammatory condition of skin (20 sources) Pruritus of skin; Translations: [Pruritus, unspecified] Onset: 01-13-2015 Resolved: 03-16-2015 03-16-2015 Episodic Other lower respiratory disease (20 sources) Cough; Translations: [Cough] Onset: 11-08-2012 Resolved: 03-16-2015 03-16-2015 Episodic Other lower respiratory disease (5 sources) Other forms of dyspnea; Translations: [Other respiratory abnormalities] Onset: 06-08-2025 08-14-2023 Episodic Other nervous system disorders (20 sources) Paresthesia; Translations: [Unspecified disturbances of skin sensation] Onset: 12-21-2009 12-21-2009 Episodic Other skin disorders (20 sources) Localized swelling, mass and lump, unspecified; Translations: [Localized superficial swelling, mass, or lump] Onset: 09-05-2011 Resolved: 03-16-2015 09-05-2011 Episodic Other upper respiratory disease (20 sources) Epistaxis; Translations: [Epistaxis] Onset: 09-05-2011 Resolved: 02-14-2012 02-14-2012 Episodic Other upper respiratory infections (20 sources) Pain in throat; Translations: [Epistaxis] Onset: 09-05-2011 Resolved: 03-16-2015 07-31-2013 Episodic Pulmonary heart disease (1 source) Pulmonary embolism; Translations: [Pulmonary embolism] Onset: 11-22-2009 11-22-2009 Episodic Residual codes; unclassified (20 sources) Family history of sudden ; Translations: [Family history of stroke] Onset: 08-09-2012 08-27-2015 Episodic Residual codes; unclassified (20 sources) Ablation of atrioventricular node; Translations: [Other specified postprocedural states] Onset: 05-08-2016 05-08-2016 Episodic Residual codes; unclassified (20 sources) FH: Raised blood lipids; Translations: [Family history of other endocrine, nutritional and metabolic diseases] 08-27-2015 Episodic Residual codes; unclassified (20 sources) Peripheral edema; Translations: [Edema, unspecified] Onset: 07-28-2015 07-28-2015 Episodic Residual codes; unclassified (20 sources) Family history of stroke; Translations: [Family history of stroke] 08-12-2014 Episodic Residual codes; unclassified (15 sources) Family history of cancer of colon; Translations: [Family history of malignant neoplasm of digestive organs] Onset: 07-12-2017 07-12-2017 Episodic Residual codes; unclassified (20 sources) H/O cardiac surgery; Translations: [Other specified postprocedural states] Onset: 10-15-2009 02-17-2020 Episodic Comment on above: Sternotomy for repai r of left atrial laceration. Right-sided pulmonary vein isolation.Ligation of left atrial Appendage. 10/15/2009 Spondylosis; intervertebral disc disorders; other back problems (20 sources) Backache; Translations: [Neck pain] Onset: 04-03-2011 Resolved: 03-16-2015 04-03-2011 Episodic Unclassified (14 sources) Screening mammography ; Translations: [Encounter for other screening for malignant neoplasm of breast] Onset: 05-20-2010 Resolved: 03-16-2015 05-20-2010 Unclassified (7 sources) Screening for malignant neoplasm of breast ; Translations: [Other specified health status] Onset: 11-04-2015 Resolved: 11-08-2015 11-04-2015 Urinary tract infections (20 sources) Urinary tract infectious disease; Translations: [Urinary tract infection, site not specified] Onset: 04-30-2012 Resolved: 06-07-2012 06-07-2012 Episodic Results Test Name Value Interpretation Reference Range Facility CT BRAIN WO IVCONon 08-17-20 CT BRAIN WO IVCON * * *Final Report* * * DATE OF EXAM: Aug 17 2025 11:52AM [facility] 0504 - CT BRAIN WO IVCON / PROCEDURE REASON: Cerebral hemorrhage (HCC) * * * * Physician Interpretation * * * * EXAMINATION: CT BRAIN WO IVCON CLINICAL HISTORY: Cerebral hemorrhage (HCC) TECHNIQUE: Serial axial images without IV contrast were obtained from the vertex to the foramen magnum. MQ: [id number] CT Radiation dose: Integrated Dose-Length Product (DLP) for this visit = 784 mGy*cm CT Dose Reduction Employed: Automated exposure control(AEC) and iterative recon COMPARISON: CT brain 07/23/2025 RESULT: Localizer images: No significant findings. Post-operative change: None. Acute change: No evidence of an acute infarct or other acute parenchymal process. Hemorrhage: No evidence of acute intracranial hemorrhage. Resolution of previously noted subarachnoid hemorrhage. Improvement in the left parietal scalp hematoma. ECASS hemorrhagic transformation score: Not Applicable Mass Lesion / Mass Effect: There is no evidence of an intracranial mass or extraaxial fluid collection. No significant mass effect. Chronic change: Scattered patchy foci of low attenuation are present within the supratentorial white matter, a nonspecific finding that most commonly represents mild small vessel disease. Parenchyma: There is mild generalized volume loss. The brain parenchyma is otherwise within normal limits for age. Ventricles: Ventricular enlargement concordant with the degree of parenchymal volume loss. Paranasal sinuses and skull base: The visualized paranasal sinuses are grossly clear. The skull base and imaged soft tissues are unremarkable. IMPRESSION: No acute intracranial process by CT. No acute intracranial hemorrhage. Resolution of previously noted subarachnoid hemorrhage. Improvement in the left parietal scalp hematoma. Assistant Professor Of Chemistry: PSCB Transcribe Date/Time: Aug 17 2025 12:15P Dictated by : BRANDON SUGGS MD This examination was interpreted and the report reviewed and electronically signed by: BRANDON SUGGS MD on Aug 17 2025 12:17PM EST [id number] CN Normal [facility] Pacemaker Checkon 08-10-2025 Pacemaker Check [facility] [address] [place] [address] Pacemaker Check Date of Service: 08/10/251727 MR#: [id number] Acct: [id number] Name: KIM CABRERA Rep #: [id number] : 1940 From: Deonna Hernandez Age/Sex: 85/F [place] [facility] [place] S[place] Billing Codes PM Device Codes: 56706 PM Dev Prog Eval, Dual Assessment and Plan Assessment and Plan (1) Presence of cardiac pacemaker: Status: Chronic Comment: 2011, gen change 2017 (2) Complete heart block: Status: Chronic (3) Longstanding persistent atrial fibrillation: Status: Chronic Comment: History of AV node ablation; 08/10/25 1733 Date Deonna Rodriguez Signature: Date (if applicable) CC: Normal [facility] Pacemaker reportOrdered By: Elijah West on 08-03-2025 Study report [facility] [address] [place] [address] TXT:Device Implant / Explant MR#: [id number] Acct: [id number] Name: KIM CABRERA Rep #:[id number] : 1940 85 From: Elijah West MD PCP: FIFI Lu Status:[facility] [place] Patient: KIM CABRERA Study Date: 08/03/2025 Performing: Elijah West MD : 1940 Age: 85 Gender: female PROCEDURES PERFORMED LP07-([id number])BATTERY REMOVAL+REPLACEMENT PACER-DUAL LEAD INDICATIONS Atrial fibrillation and complete heart block PROCEDURE DETAILS The patient was brought to the Catheterization Lab in the postabsorptive nonsedated state. Informed consent was obtained prior to the procedure. Local anesthetic was given subcutaneously to the left subclavian region with Lidocaine 2%. Incision was made to the left subclavicular area. Previous PPM generator was removed. PPM generator was attached to the lead(s) and inserted into the pocket. PPM generator was then interrogated by the cad cam programmer. Device pocket was irrigated with antibiotic. Subcutaneous closure was completed with 3-0 Vicryl. Skin closure was completed with 4-0 Vicryl. The patient tolerated the procedure well. Estimated Blood Loss: 10 ml's IMPLANTED / EX-PLANTED DEVICES IMPLANTED DEVICE(S): PPM Generator - Laundry Tech: Cool Lumens, Model # Essentio MRI DR L111 , Serial # [id number] DEVICE PARAMETERS DEVICE PARAMETERS: rate response on Mode- VVIR Lower rate- 70 Upper rate- 130 CONCLUSIONS / RECOMMENDATIONS Device Conclusions: Successful implantation of a dual chamber pacemaker battery change and replacement Device Recommendations: Follow up with Primary Care Physician PROCEDURE MEDICATIONS Versed 1 mg IV Fentanyl 25 mcg IV Versed 1 mg IV Oxygen: 2 L/min via nasal cannula Antibiotic given in appropriate timeframe. Ancef 2 Gm IV @ 08/03/2025 12:34:00 Signed By Elijah West MD On 08/03/2025 13:22:36 Elijah West MD 08/03/25 1323 Date _ Elijah West MD Cosigner Signature: Date _ (if indicated) CC: DRILL HAND-C Teagan Bosch; Dr. Elijah West MD ~ Date Dictated: 08/03/25 1255 Date Transcribed: 08/03/25 1318 Assistant Professor Of Chemistry: CO Signed [facility] Work Phone: TXT:Device Implant / Explant on 08-03-2025 TXT:Device Implant / Explant [facility] [address] [place] [id number] TXT:Device Implant / Explant MR#: [id number] Acct: [id number] [facility] Rep #: [id number] : 1940 85 From: Elijah West MD PCP: FIFI Lu Status:[facility] [place] Patient: KIM CABRERA Study Date: 08/03/2025 Performing: Elijah West MD : 1940 Age: 85 Gender: female PROCEDURES PERFORMED [id number]-([id number])BATTERY REMOVAL+REPLACEMENT PACER-DUAL LEAD INDICATIONS Atrial fibrillation and complete heart block PROCEDURE DETAILS The patient was brought to the Catheterization Lab in the postabsorptive nonsedated state. Informed consent was obtained prior to the procedure. Local anesthetic was given subcutaneously to the left subclavian region with Lidocaine 2%. Incision was made to the left subclavicular area. Previous PPM generator was removed. PPM generator was attached to the lead(s) and inserted into the pocket. PPM generator was then interrogated by the cad cam programmer. Device pocket was irrigated with antibiotic. Subcutaneous closure was completed with 3-0 Vicryl. Skin closure was completed with 4-0 Vicryl. The patient tolerated the procedure well. Estimated Blood Loss: 10 ml's IMPLANTED / EX-PLANTED DEVICES IMPLANTED DEVICE(S): PPM Generator - Laundry Tech: Cool Lumens, Model # Essentio MRI L111 , Serial # [id number] DEVICE PARAMETERS DEVICE PARAMETERS: rate response on Mode- VVIR Lower rate- 70 Upper rate- 130 CONCLUSIONS / RECOMMENDATIONS Device Conclusions: Successful implantation of a dual chamber pacemaker battery change and replacement Device Recommendations: Follow up with Primary Care Physician PROCEDURE MEDICATIONS Versed 1 mg IV Fentanyl 25 mcg IV Versed 1 mg IV Oxygen: 2 L/min via nasal cannula Antibiotic given in appropriate timeframe. Ancef 2 Gm IV @ 08/03/2025 12:34:00 Signed By Elijah West MD On 08/03/2025 13:22:36 Elijah West MD 08/03/25 1323 Date Elijah West MD Cosigner Signature: Date (if indicated) CC: FIFI Bosch; Dr. Elijah West MD Date Dictated: 08/03/25 1255 Date Transcribed: 08/03/25 1318 Assistant Professor Of Chemistry: CO Signed Normal [facility] Absolute lymphocyte countOrd ered By: Maura Maki on 07-31-2025 Lymphocytes Auto (Unsp spec) [#/Vol] 0.92 10*3/uL 0.83-4.51 [facility] Absolute neutrophil countOrd ered By: Maura Maki on 07-31-2025 Neutrophils (Bld) [#/Vol] 3.5 10*3/uL 2.0-7.7 [facility] Automated lymphocyte count a s percentage of total leukocytesOrdered By: Maura Maki on 07-31-2025 Lymphocytes/100 WBC Auto (Unsp spec) 16.9 % Low 19-41 [facility] Basophil percentageOrdered B y: Maura Maki on 07-31-2025 Basophils/100 WBC (Bld) 0.4 % 0-1 [facility] Eosinophil percentageOrdered By: Maura Maki on 07-31-2025 Eosinophils/100 WBC (Bld) 2.2 % 0-5 [facility] Erythrocyte distribution wid th ratioOrdered By: Maura Maki on 07-31-2025 Erythrocyte distribution width (RBC) [Ratio] 18.6 % High 11.6-14.6 [facility] Erythrocyte distribution wid th standard deviationOrdered By: Maura Maki on 07-31-2025 Erythrocyte distribution width (RBC) [Ratio] 63.7 fl High 35.1-43.9 [facility] Hematocrit Auto (Bld) [Volum e fraction]Ordered By: Maura Maki on 07-31-2025 Hematocrit (Bld) [Volume fraction] 28.5 % Low 37-47 [facility] Hemoglobin measurementOrdere d By: Maura Maki on 07-31-2025 Hemoglobin (Bld) [Mass/Vol] 9.0 g/dL Low 12.0-15.0 [facility] Immature granulocytes/100 WB C Auto (Bld)Ordered By: Maura Maki on 07-31-2025 Immature granulocytes/100 WBC (Bld) 3.100 % High 0.0-0.9 [facility] Comment on above: IG% - Immature Granu locytes (promyelocytes, myelocytes and metamyelocytes) > 1% indicates that a LEFT SHIFT is Present. MCV (mean corpuscular volume ) determinationOrdered By: Maura Maki on 07-31-2025 MCV (RBC) [Entitic vol] 96.9 fL 81-99 [facility] Mean corpuscular hemoglobin (MCH) determinationOrdered By: Maura Maki on 07-31-2025 MCH (RBC) [Entitic mass] 30.6 pg 27.0-32.0 [facility] Mean corpuscular hemoglobin concentration (MCHC) determinationOrdered By: Maura Maki on 07-31-2025 MCHC (RBC) [Mass/Vol] 31.6 g/dL Low 32-36 [facility] Mean platelet volume determi nationOrdered By: Maura Maki on 07-31-2025 Platelet mean volume (Bld) [Entitic vol] 10.7 fL 6.2-12.0 [facility] Monocyte percentageOrdered B y: Maura Maki on 07-31-2025 Monocytes/100 WBC (Bld) 13.0 % High 0-10 [facility] Neutrophil percentageOrdered By: Maura Maki on 07-31-2025 Neutrophils/100 WBC (Bld) 64.4 % 47-70 [facility] Nucleated red blood cell per centageOrdered By: Maura Maki on 07-31-2025 Nucleated RBC/100 WBC (Bld) [Ratio] 0.4 % 0-5 [facility] Platelet countOrdered By: Rafy Maki on 07-31-2025 Platelets (Bld) [#/Vol] 131 10*3/uL Low 150-450 [facility] RBC Auto (Bld) [#/Vol]Ordere d By: Maura Maki on 07-31-2025 RBC (Bld) [#/Vol] 2.94 10*6/uL Low 4.2-5.4 [facility] White blood cell (WBC) count Ordered By: Maura Maki on 07-31-2025 WBC (Bld) [#/Vol] 5.5 10*3/uL 4.4-11.0 [facility] BRCon 07-29-2025 RC Normal [facility] Comment on above: Result Comment: [id number] OP RC TRANSFUSED 07/30/25 0837 Performed By: #### B ANALIA STEELE ####[facility] [address] [place], [place], [id number] Type AND Screenon 07-29-2025 Ab SCREEN GEL Negative Normal [facility] Comment on above: Order Comment: N1 12/23 @ 0830NYA Performed By: #### B ANALIA STEELE ####[facility] [address] [place], [place], [id number] Absolute lymphocyte countOrd ered By: Drake Farah on 07-28-2025 Lymphocytes Auto (Unsp spec) [#/Vol] 0.80 10*3/uL Low 0.83-4.51 [facility] Absolute neutrophil countOrd ered By: Drake Farah on 07-28-2025 Neutrophils (Bld) [#/Vol] 2.8 10*3/uL 2.0-7.7 [facility] Anion gap in Serum or Plasma Ordered By: Drake Farah on 07-28-2025 Anion gap [Moles/Vol] 11 mmol/L 5-15 [facility] Automated lymphocyte count a s percentage of total leukocytesOrdered By: Drake Farah on 07-28-2025 Lymphocytes/100 WBC Auto (Unsp spec) 17.7 % Low 19-41 [facility] BUN/creatinine ratioOrdered By: Drake Farah on 07-28-2025 Urea nitrogen/Creatinine [Mass ratio] 21.9 mg/mg High 10-20 [facility] Basophil percentageOrdered B y: Drake Farah on 07-28-2025 Basophils/100 WBC (Bld) 0.2 % 0-1 [facility] Bilirubin, totalOrdered By: Drake Farah on 07-28-2025 Bilirubin [Mass/Vol] 1.05 mg/dL 0.00-1.30 [facility] Carbon dioxide, total [Moles /volume] in Central venous bloodOrdered By: Drake Farah on 07-28-2025 CO2 [Moles/Vol] 23.5 mmol/L 21.0-32.0 [facility] Chloride assayOrdered By: Traci Farah on 07-28-2025 Chloride [Moles/Vol] 105 mmol/L 98-108 [facility] Eosinophil percentageOrdered By: Drake Farah on 07-28-2025 Eosinophils/100 WBC (Bld) 2.4 % 0-5 [facility] Erythrocyte distribution wid th ratioOrdered By: Drake Farah on 07-28-2025 Erythrocyte distribution width (RBC) [Ratio] 17.0 % High 11.6-14.6 [facility] Erythrocyte distribution wid th standard deviationOrdered By: Drake Farah on 07-28-2025 Erythrocyte distribution width (RBC) [Ratio] 58.4 fl High 35.1-43.9 [facility] Glomerular filtration rate ( GFR) estimation/1.73 sq m using serum, plasma, or whole bOrdered By: Drake Farah on 07-28-2025 GFR/1.73 sq M.predicted among non-blacks MDRD (S/P/Bld) [Vol rate/Area] 86 mL/min/{1.73_m2} >60 [facility] Comment on above: mL/min/1.73m2 CKD-EP I Creatinine Equation (2020) Hematocrit Auto (Bld) [Volum e fraction]Ordered By: Drake Farah on 07-28-2025 Hematocrit (Bld) [Volume fraction] 24.9 % Low 37-47 [facility] Hemoglobin measurementOrdere d By: Drake Farah on 07-28-2025 Hemoglobin (Bld) [Mass/Vol] 7.9 g/dL Low 12.0-15.0 [facility] Immature granulocytes/100 WB C Auto (Bld)Ordered By: Drake Farah on 07-28-2025 Immature granulocytes/100 WBC (Bld) 1.800 % High 0.0-0.9 [facility] Comment on above: IG% - Immature Granu locytes (promyelocytes, myelocytes and metamyelocytes) > 1% indicates that a LEFT SHIFT is Present. Laboratory - Chemistry and C hemistry - challengeOrdered By: Drake Farah on 07-28-2025 AST [Catalytic activity/Vol] 21 U/L <32 [facility] MCV (mean corpuscular volume ) determinationOrdered By: Drake Farah on 07-28-2025 MCV (RBC) [Entitic vol] 95.4 fL 81-99 [facility] Mean corpuscular hemoglobin (MCH) determinationOrdered By: Drake Farah on 07-28-2025 MCH (RBC) [Entitic mass] 30.3 pg 27.0-32.0 [facility] Mean corpuscular hemoglobin concentration (MCHC) determinationOrdered By: Drake Farah on 07-28-2025 MCHC (RBC) [Mass/Vol] 31.7 g/dL Low 32-36 [facility] Mean platelet volume determi nationOrdered By: Drake Farah on 07-28-2025 Platelet mean volume (Bld) [Entitic vol] 10.5 fL 6.2-12.0 [facility] Monocyte percentageOrdered B y: Drake Farah on 07-28-2025 Monocytes/100 WBC (Bld) 15.0 % High 0-10 [facility] Neutrophil percentageOrdered By: Drake Farah on 07-28-2025 Neutrophils/100 WBC (Bld) 62.9 % 47-70 [facility] Nucleated red blood cell per centageOrdered By: Drake Farah on 07-28-2025 Nucleated RBC/100 WBC (Bld) [Ratio] 0.7 % 0-5 [facility] Platelet countOrdered By: Traci Farah on 07-28-2025 Platelets (Bld) [#/Vol] 117 10*3/uL Low 150-450 [facility] Potassium measurement (mass/ volume)Ordered By: Drake Farah on 07-28-2025 Potassium (Unsp spec) [Mass/Vol] 3.8 mmol/L 3.3-5.1 [facility] RBC Auto (Bld) [#/Vol]Ordere d By: Drake Farah on 07-28-2025 RBC (Bld) [#/Vol] 2.61 10*6/uL Low 4.2-5.4 [facility] Serum creatinine measurement (mass/volume)Ordered By: Drake Farah on 07-28-2025 Creatinine [Mass/Vol] 0.68 mg/dL Low 0.70-1.20 [facility] Serum globulin measurementOr dered By: Drake Farah on 07-28-2025 Globulin (S) [Mass/Vol] 2.5 g/dL 2.2-4.2 [facility] Serum glucose measurement (m ass/volume)Ordered By: Drake Farah on 07-28-2025 Glucose [Mass/Vol] 99 mg/dL 70-99 [facility] Serum or plasma alanine ziegler otransferase (ALT) measurementOrdered By: Drake Farah on 07-28-2025 ALT [Catalytic activity/Vol] 9 U/L <35 [facility] Serum or plasma albumin soni urement (mass/volume)Ordered By: Drake Fraah on 07-28-2025 Albumin [Mass/Vol] 3.6 g/dL 3.4-4.8 [facility] Serum or plasma albumin/glob ulin mass ratioOrdered By: Drake Farah on 07-28-2025 Albumin/Globulin [Mass ratio] 1.4 {ratio} 0.9-2.4 [facility] Serum or plasma alkaline lita sphatase measurementOrdered By: Drake Farah on 07-28-2025 ALP [Catalytic activity/Vol] 58 U/L 35-104 [facility] Serum or plasma calcium soni urement (mass/volume)Ordered By: Drake Farah on 07-28-2025 Calcium [Mass/Vol] 9.0 mg/dL 7.6-11.0 [facility] Serum or plasma urea nitroge n measurement (mass/volume)Ordered By: Drake Farah on 07-28-2025 Urea nitrogen [Mass/Vol] 15 mg/dL 4-19 [facility] Sodium levelOrdered By: Samuel hidalgomaggy Sofi on 07-28-2025 Sodium [Moles/Vol] 139 mmol/L 133-145 [facility] Total proteinOrdered By: Edson Farah on 07-28-2025 Protein [Mass/Vol] 6.1 g/dL 5.9-8.4 [facility] White blood cell (WBC) count Ordered By: Drake Farah on 07-28-2025 WBC (Bld) [#/Vol] 4.5 10*3/uL 4.4-11.0 [facility] CBC panel Auto (Bld)on 07-27 Erythrocyte distribution width (RBC) [Ratio] 16.7 % High 11.5-15.0 [facility] Comment on above: Order Comment: Speci men Type: BLOOD SPECIMENOrdering Facility: [facility] Address: [address] [place] [address] Performed By: #### 5 8410-2 ####[facility] LABORATORYCLIA [id number] [address] Hematocrit (Bld) [Volume fraction] 27.6 % Low 36.0-46.0 [facility] Comment on above: Order Comment: Speci men Type: BLOOD SPECIMENOrdering Facility: [facility] Address: [address] [place] [address] Performed By: #### 5 8410-2 ####[facility] LABORATORYCLIA [id number] [address] [facility] Hemoglobin (Bld) [Mass/Vol] 8.6 g/dL Low 11.5-15.5 [facility] Comment on above: Order Comment: Speci men Type: BLOOD SPECIMENOrdering Facility: [facility] Address: [address] [place] [address] Performed By: #### 5 8410-2 ####[facility] LABORATORYCLIA [id number] [address] MCH (RBC) [Entitic mass] 30.6 pg Normal 26.0-34.0 [facility] Comment on above: Order Comment: Speci men Type: BLOOD SPECIMENOrdering Facility: [facility] Address: [address] [place] [address] Performed By: #### 5 8410-2 ####[facility] LABORATORYCLIA [id number] [address] [place] MCHC (RBC) [Mass/Vol] 31.2 g/dL Normal 30.5-36.0 [facility] Comment on above: Order Comment: Speci men Type: BLOOD SPECIMENOrdering Facility: [facility] Address: [address] [place] [address] Performed By: #### 5 8410-2 ####[facility] LABORATORYCLIA [id number] [address] MCV (RBC) [Entitic vol] 98.2 fL Normal 80.0-100.0 [facility] Comment on above: Order Comment: Speci men Type: BLOOD SPECIMENOrdering Facility: [facility] Address: [address] [place] [address] Performed By: #### 5 8410-2 ####[facility] LABORATORYCLIA [id number] [address] [place] Nucleated RBC (Bld) [#/Vol] 0.05 10*3/uL High <0.01 [facility] Comment on above: Order Comment: Speci men Type: BLOOD SPECIMENOrdering Facility: [facility] Address: [address] [place] [address] Performed By: #### 5 8410-2 ####[facility] LABORATORYCLIA [id number] [address] [place] [facility] Platelet mean volume (Bld) [Entitic vol] 9.9 fL Normal 9.0-12.7 [facility] Comment on above: Order Comment: Speci men Type: BLOOD SPECIMENOrdering Facility: [facility] Address: [address] [place] [address] Performed By: #### 5 8410-2 ####[facility] LABORATORYCLIA [id number] [address] Platelets (Bld) [#/Vol] 126 10*3/uL Low 150-400 [facility] Comment on above: Order Comment: Speci men Type: BLOOD SPECIMENOrdering Facility: [facility] Address: [address] [place] [address] Performed By: #### 5 8410-2 ####[facility] LABORATORYCLIA [id number] [address] [place] RBC (Bld) [#/Vol] 2.81 10*6/uL Low 3.90-5.20 [facility] Comment on above: Order Comment: Speci men Type: BLOOD SPECIMENOrdering Facility: [facility] Address: [address] [place] [address] Performed By: #### 5 8410-2 ####[facility] LABORATORYCLIA [id number] [place] [address] [facility] WBC (Bld) [#/Vol] 6.04 10*3/uL Normal 3.70-11.00 [facility] Comment on above: Order Comment: Speci men Type: BLOOD SPECIMENOrdering Facility: [facility] Address: [address] [place] [address] Performed By: #### 5 8410-2 ####[facility] LABORATORYCLIA [id number] [place] [address] [facility] CNDSon 07-27-2025 CN HNO ID: [id number] Author: JENS MELENDREZ PA-C Service: General Surgery Author Type: Physician Sliver Machine Operator Type: Discharge Summary Filed: 07/27/2025 16:09 Note Text: Attestation signed by Preston Santillan MD at 07/27/2025 4:27 PM The [facility], acting on behalf of the attending physician, has completed the [id number] portion of the patient discharge encounter. SIGNATURE: Preston Santillan MD PATIENT NAME: Kim Cabrera DATE: July 27, 2025 TIME: 4:27 PM Pager: [phone] DISCHARGE SUMMARY PATIENT NAME: Kim Cabrera Code Status: Full Code Highest Readmission Risk Score: 14 The 30 day readmissions risk score is derived from an internally validated risk model which evaluates patient level characteristics, utilization history, medication orders and lab results up until the day of discharge. Patients with a score of 39 or above are considered highest risk for readmission. Specific patient level drivers will be listed at the bottom of the summary. Admission Information Admission Information ADMIT DATE: 07/22/2025 DISCHARGE DATE: 07/27/2025 MY DOCTORS AND MEDICAL TEAM: My Main Hospital Doctor: Preston Santillan MD Primary Care Provider: Todd Carbajal DO My Medical Team Members: Treatment Team: Attending Provider: Preston Santillan MD MY CONDITION AT DISCHARGE: Stable REASON I WAS IN THE HOSPITAL: Traumatic subarachnoid hemorrhage, left gluteal/flank hematoma SUMMARY OF WHAT HAPPENED WHILE I WAS IN THE HOSPITAL: Kim Cabrera presented to [facility] ED as a level III trauma alert transfer from [place] after a reported fall down 3-[address] imaging completed prior to transfer showed a small amount of traumatic subarachnoid hemorrhage on the right. Her home Eliquis was reportedly reversed with PCC prior to transfer. Upon arrival to [facility] ED, she would undergo repeat CT Imaging of her brain along with imaging of her chest, abdomen and pelvis that showed a left gluteal hematoma with possible active bleeding and an age-indeterminate T12 compression fracture. She was admitted to the ICU for close neurological monitoring. Neurosurgery was consulted and recommended non-operative management of her brain bleed. It was recommended that she avoid resumption of her home Eliquis until cleared by neurosurgery at her two week outpatient follow-up appointment. Due to lack of back pain on exam, no further imaging was warranted for the incidental, likely chronic T12 compression fracture. Her left gluteal hematoma was monitored closely and remained stable. She was anemic with a hemoglobin of 9.6 on arrival. Hemoglobin dropped to as low as 7.6 on 07/27/2025. Repeat CBC showed a hemoglobin of 8.6. No transfusions were warranted. Ms. Cabrera was evaluated by physical and occupational therapy who recommended discharge to a penitentiary facility. She was also evaluated by speech therapy and geriatrics given her age, fall and notable traumatic brain injury. Ms. Cabrera would be discharged to a penitentiary facility in stable condition on 07/27/2025. She would require 2-week neurosurgical follow-up with repeat CT scan of her brain along with routine medical follow-up with her primary care provider. OTHER PROBLEMS/DIAGNOSIS: Principal Problem: Trauma Active Problems: Subarachnoid hemorrhage following injury, no loss of consciousness (HCC) Intramuscular hematoma At risk for delirium Frailty syndrome in geriatric patient Prolonged QT interval Goals of care, counseling/discussio n Full code status DNR (do not resuscitate) discussion ABLA (acute blood loss anemia) Resolved Problems: * No resolved hospital problems. * OPERATIONS PERFORMED WHILE IN THE HOSPITAL: None IMPORTANT TEST/PROCEDURES: No procedures performed TEST RESULTS NOT AVAILABLE AT THIS TIME: No pending results Discharge Disposition Discharge Disposition: Jail Facility - Less than 30 Days Activity When You Leave the Hospital Do not bend over at the waist to lift heavy objects May bathe and shower No driving for: Until cleared by neurosurgery. No prolonged bedrest, longer than 8 hours in a 24 hour period No walking restrictions Diet Instructions Avoid Alcohol Resume your pre-hospital diet For Pain When You Leave the Hospital If you become constipated, you may use any nhey-rnp-cbrqxhj treatment such as Milk of Magnesia, Sennakot, Prune Juice, Suppositories, etc. in addition to the stool softener/fiber supplement No alcohol or driving while on pain medication Other: DO NOT take aspirin or NSAIDs such as Motrin, Advil, ibuprofen, Aleve or naproxen as these medications can increase risk of bleeding. Use acetaminophen (Tylenol) as recommended on the bottle Call Your Doctor If You (more content not included)... Normal [facility] NUTRITIONon 07-27-2025 NUTRITION HNO ID: [id number] Author: KATHERINE ALEMAN RD Service: Nutrition Therapy Author Type: Registered Dietitian Type: Nutrition Filed: 07/27/2025 16:24 Note Text: NUTRITION THERAPY SCREEN NOTE SERVICE DATE: 07/27/2025 Care Plan: Continue current diet Monitor and Evaluation: Meet greater than 75% of estimated needs, Monitor bowel function Intake History: Nutrition Intake Prior to Admission: Greater than 75% estimated energy needs Current Nutrition Intake: Greater than 75% estimated energy needs Current Intake Over time: (LOS) Diet Orders (From admission, onward) Start Ordered 07/23/25 1300 DIET REGULAR START NOW 07/23/25 1255 Anthropometrics: Height: 172.7 cm (5' 8) Weight: 87 kg (191 lb 12.8 oz) Weight change percentage over time: no significant changes Lines, Drains, and Airways None MNT Billing: $ Routine Care : 1 unit SIGNATURE: Katherine Aleman RD PATIENT NAME: Kim Cabrera DATE: July 27, 2025 TIME: 12:10 PM Normal [facility] Basic metabolic 2000 panelon 07-26-2025 Anion gap [Moles/Vol] 10 mmol/L Normal 8-15 [facility] Comment on above: Order Comment: Speci men Type: BLOOD SPECIMENOrdering Facility: [facility] Address: [address] [place] [address] Performed By: #### 2 4321-2 ####[facility] LABORATORYCLIA [id number] [place] [address] [place] Calcium [Mass/Vol] 8.3 mg/dL Low 8.5-10.2 [facility] Comment on above: Order Comment: Speci men Type: BLOOD SPECIMENOrdering Facility: [facility] Address: [address] [place] [address] Performed By: #### 2 4321-2 ####[facility] LABORATORYCLIA [id number] [place] [address] [place] Chloride [Moles/Vol] 103 mmol/L Normal 98-107 [facility] Comment on above: Order Comment: Speci men Type: BLOOD SPECIMENOrdering Facility: [facility] Address: [address] [place] [address] Performed By: #### 2 4321-2 ####[facility] LABORATORYCLIA [id number] [place] [address] [place] CO2 [Moles/Vol] 25 mmol/L Normal 22-30 [facility] Comment on above: Order Comment: Speci men Type: BLOOD SPECIMENOrdering Facility: [facility] Address: [address] [place] [address] Performed By: #### 2 4321-2 ####[facility] LABORATORYCLIA [id number] [place] [address] [place] Creatinine [Mass/Vol] 0.68 mg/dL Normal 0.58-0.96 [facility] Comment on above: Order Comment: Marvin theo Type: BLOOD SPECIMENOrdering Facility: [facility] Address: [address] [place] [address] Performed By: #### 2 4321-2 ####[facility] LABORATORYCLIA [id number] [address] [place] eGFRcr SerPlBld CKD-EPI 2020 86 mL/min/1.73m??? Normal >=60 [facility] Comment on above: Order Comment: Lindarebecca venegas Type: BLOOD SPECIMENOrdering Facility: [facility] Address: [address] [place] [address] Result Comment: Debbie mated Glomerular Filtration Rate (eGFR) is calculated using the 2020 CKD-EPI creatinine equation. This equation utilizes serum creatinine, sex, and age as parameters. The creatinine assay has traceable calibration to isotope dilution-mass spectrometry. Refer to KDIGO guidelines for clinical interpretation. In patients with unstable renal function, e.g. those with acute kidney injury, the eGFR may not accurately reflect actual GFR. Performed By: #### 2 4321-2 ####[facility] LABORATORYCLIA [id number] [place] [address] [place] Glucose [Mass/Vol] 97 mg/dL Normal 74-99 [facility] Comment on above: Order Comment: Marvin venegas Type: BLOOD SPECIMENOrdering Facility: [facility] Address: [address] [place] [address] Result Comment: The [place] Diabetes Association (ADA) provides guidance for cutoff values for fasting glucose and random glucose. The ADA defines fasting as no caloric intake for at least 8 hours. Fasting plasma glucose results between 100 to 125 mg/dL indicate increased risk for diabetes (prediabetes). Fasting plasma glucose results greater than or equal to 126 mg/dL meet the criteria for diagnosis of diabetes. In the absence of unequivocal hyperglycemia, results should be confirmed by repeat testing. In a patient with classic symptoms of hyperglycemia or hyperglycemic crisis, random plasma glucose results greater than or equal to 200 mg/dL meet the criteria for diagnosis of diabetes. Reference: Standards of Medical Care in Diabetes 2016, [place] Diabetes Association. Diabetes Care. 2016.39(Suppl 1). Performed By: #### 2 4321-2 ####[facility] LABORATORYCLIA [id number] [place] [address] [place] Potassium [Moles/Vol] 3.7 mmol/L Normal 3.7-5.1 [facility] Comment on above: Order Comment: Speci men Type: BLOOD SPECIMENOrdering Facility: [facility] Address: [address] [place] [address] Performed By: #### 2 4321-2 ####[facility] LABORATORYCLIA [id number] [place] [address] [place] Sodium [Moles/Vol] 138 mmol/L Normal 136-144 [facility] Comment on above: Order Comment: Speci men Type: BLOOD SPECIMENOrdering Facility: [facility] Address: [address] [place] [address] Performed By: #### 2 4321-2 ####[facility] LABORATORYCLIA [id number] [address] [place] [facility] Urea nitrogen [Mass/Vol] 13 mg/dL Normal 7-21 [facility] Comment on above: Order Comment: Speci men Type: BLOOD SPECIMENOrdering Facility: [facility] Address: [address] [place] [address] Performed By: #### 2 4321-2 ####[facility] LABORATORYCLIA [id number] [address] [place] CBC panel Auto (Bld)on 07-26 Erythrocyte distribution width (RBC) [Ratio] 16.2 % High 11.5-15.0 [facility] Comment on above: Order Comment: Speci men Type: BLOOD SPECIMENOrdering Facility: [facility] Address: [address] [place] [address] Performed By: #### 5 8410-2 ####[facility] LABORATORYCLIA [id number] [address] [place] Hematocrit (Bld) [Volume fraction] 24.3 % Low 36.0-46.0 [facility] Comment on above: Order Comment: Speci men Type: BLOOD SPECIMENOrdering Facility: [facility] Address: [address] [place] [address] Performed By: #### 5 8410-2 ####[facility] LABORATORYCLIA [id number] [address] [place] [facility] Hemoglobin (Bld) [Mass/Vol] 7.6 g/dL Low 11.5-15.5 [facility] Comment on above: Order Comment: Speci men Type: BLOOD SPECIMENOrdering Facility: [facility] Address: [address] [place] [address] Performed By: #### 5 8410-2 ####[facility] LABORATORYCLIA [id number] [address] [place] MCH (RBC) [Entitic mass] 30.3 pg Normal 26.0-34.0 [facility] Comment on above: Order Comment: Speci men Type: BLOOD SPECIMENOrdering Facility: [facility] Address: [address] [place] [address] Performed By: #### 5 8410-2 ####[facility] LABORATORYCLIA [id number] [address] [place] MCHC (RBC) [Mass/Vol] 31.3 g/dL Normal 30.5-36.0 [facility] Comment on above: Order Comment: Speci men Type: BLOOD SPECIMENOrdering Facility: [facility] Address: [address] [place] [address] Performed By: #### 5 8410-2 ####[facility] LABORATORYCLIA [id number] [address] [place] MCV (RBC) [Entitic vol] 96.8 fL Normal 80.0-100.0 [facility] Comment on above: Order Comment: Speci men Type: BLOOD SPECIMENOrdering Facility: [facility] Address: [address] [place] [address] Performed By: #### 5 8410-2 ####[facility] LABORATORYCLIA [id number] [address] [place] Nucleated RBC (Bld) [#/Vol] 0.03 10*3/uL High <0.01 [facility] Comment on above: Order Comment: Speci men Type: BLOOD SPECIMENOrdering Facility: [facility] Address: [address] [place] [address] Performed By: #### 5 8410-2 ####[facility] LABORATORYCLIA [id number] [address] [place] Platelet mean volume (Bld) [Entitic vol] 10.5 fL Normal 9.0-12.7 [facility] Comment on above: Order Comment: Speci men Type: BLOOD SPECIMENOrdering Facility: [facility] Address: [address] [place] [address] Performed By: #### 5 8410-2 ####[facility] LABORATORYCLIA [id number] [address] [place] Platelets (Bld) [#/Vol] 109 10*3/uL Low 150-400 [facility] Comment on above: Order Comment: Speci men Type: BLOOD SPECIMENOrdering Facility: [facility] Address: [address] [place] [address] Performed By: #### 5 8410-2 ####[facility] LABORATORYCLIA [id number] [address] [place] RBC (Bld) [#/Vol] 2.51 10*6/uL Low 3.90-5.20 [facility] Comment on above: Order Comment: Speci men Type: BLOOD SPECIMENOrdering Facility: [facility] Address: [address] [place] [address] Performed By: #### 5 8410-2 ####[facility] LABORATORYCLIA [id number] [address] [place] WBC (Bld) [#/Vol] 5.90 10*3/uL Normal 3.70-11.00 [facility] Comment on above: Order Comment: Speci men Type: BLOOD SPECIMENOrdering Facility: [facility] Address: [address] [place] [address] Performed By: #### 5 8410-2 ####[facility] HOSPITALIA [id number] [place] [address] [facility] [place] THERAPY NTon 07-26-2025 THERAPY NT HNO ID: [id number] Author: ANTONIO HITCHCOCK, OTR/L Service: Occupational Therapy Author Type: Occupational Therapist Type: Therapy (PT/OT/Speech/Resp) Filed: 07/26/2025 11:25 Note Text: Occupational Therapy Evaluation Summary SERVICE DATE: 07/26/2025 SERVICE TIME: 854 to 936 ROOM: [place] [address] OT 6 Clicks Score: 15 DISCHARGE RECOMMENDATIONS Subacute/SNF Recommended Discharge Disposition Comments: Pt appears below her baseline of occasionally using cane, is at high risk for recurrent falls Recommended Discharge Disposition Due to: Functional deficits requiring ongoing therapy service prior to discharge home., Patient requires daily (5x/week) skilled therapy at next level of care., ADL impairment, Functional status decline, Requires multiple therapy disciplines ASSESSMENT Response to Therapy Interventions: Good Participation in Activities, Improved Tolerance for Activity, Low Activity Tolerance, Multiple Ongoing Medical Issues, Requires Additional Time to Complete Activities Pt agreeable to OT, assisted to stand with effort on second attempt and light assist from chair to wheeled walker. Facilitated effortful dynamic mobility to bathroom for hygiene/grooming tasks. Pt unable to tolerate standing, chair brought behind pt and pt sits to complete. Therapist heavily assists to wash and lotion back. Pt stands from small armed chair in bathroom with less assist that recliner, pt completes dynamic mobility back to chair. Discussed recc for SNF, challenges that she would encounter at home. Provided therapeutic listening to pts concerns that she would not be let out of SNF, reassured that SNF would be short tern and they could even help to see if pt would qualify for a OUTREACH EDUCATOR or get private care assist if needed at home. That she is not so far below her baseline that returning home would not be reasonable after SNF. PRECAUTIONS Bed/Chair Alarm, Fall Risk CURRENT HOSPITAL COURSE Fall with SAH no intervention needed from NS, hematoma L gluteal Relevant Past Medical History: Falls with fracture in past, 02/20 RECENT HIP FRACTURE HOME LIVING Patient Lives With: Other: See Comment Comments: Friend Assistance Available: Part-Time Entry To Home: Stairs Number Of Stairs Into Home: 4 Number Of Stairs To Bed/Bath: 0 Tub/Shower Type: tub/shower but has a walk in seat with shower seat and bars Laundry: main level Equipment Owned: Cane, Shower Chair, Walker- Standard, Walker- Wheeled, Rollator, Grab Bars- Shower, Power Transformer Assembler, Sock Aid, Long Handled Sponge PRIOR FUNCTIONAL LEVEL Within Functional Limits Was indep, driving, shopping, patient and her room mate helped each other at home with IADLs. Recent SAUL 02/2025, using a cane inconsistently Baseline Cognition: Oriented to self, Oriented to place, Oriented to time, Oriented to situation SUBJECTIVE Pt up in chair, cooperative COGNITION Responsiveness: Alert, Awake Follows Commands: 2-step Commands Short Blessed Final Score: 0 (07/26/25) Performed Short Blessed Test on this date. A screening test in itself is insufficient to diagnose a dementing order. However, the SBT is quite sensitive to early cognitive changes associated with dementing disorders. A score in the impaired range indicate a need for further assessment. Pt scored a 0 on this date. A score of 10 or more suggests impairment consistent with dementia. 4AT Score: 0 (07/26/25) Delirium Positive/Negative: Negative (07/26/25) Administered 4AT which is an assessment for delirium and cognitive impairment. Pt scored 0. A score of 4 or above suggests possible delirium +/- cognitive impairment. A score of 1-3 suggests possible cognitive impairment. A sore of 0 suggests that delirium or severe cognitive impairment is unlikely. This is not a diagnostic tool, more detailed assessment of mental status may be required to reach a diagnosis. THERAPY DIAGNOSIS Reduced mobility-other, Decreased activities of daily living (ADL), Muscle Weakness (generalized), Unsteadiness on feet, Abnormalities of gait and mobility-other, Signs and Symptoms Involving Cognitive Functions and Awareness TREATMENT INTERVENTIONS Evaluation, Self Alf Management (68710) Timed Code Treatment (minutes): 24 Skilled Treatment Time (minutes): 42 $ Evaluation - Moderate (07247) Billed Units: 1 unit Self Alf Management (54574) Treatment Minutes: 24 $ Self Alf Management (87131) Billed Units: 2 units TRAINING AND EDUCATION PROVIDED Bed Mobility, Adaptive Equipment/DME, Activity Adaptation/Compensat ory Strategies, Assistive Device Use, Cognitive Skills, Expected Functional Level, Disease Specific Education, Grooming Tasks, Functional Mobility Involving ADLs, Role of Occupational Therapy, Safety/Judgment, Sitting Balance to Improve [place] with ADLs/Self-Care, Standing Balance to Improve [place] with ADLs/Self-Care, Transfer - Sit to Stand THERAPEUTIC SKILLS USED Ac (more content not included)... Normal [facility] Basic metabolic 2000 panelon 07-25-2025 Anion gap [Moles/Vol] 9 mmol/L Normal 8-15 [facility] Comment on above: Order Comment: Speci men Type: BLOOD SPECIMENOrdering Facility: [facility] Address: [address] [place] [address] Performed By: #### 2 4321-2 ####[facility] LABORATORYCLIA [id number] [place] [address] [place] Calcium [Mass/Vol] 8.7 mg/dL Normal 8.5-10.2 [facility] Comment on above: Order Comment: Speci men Type: BLOOD SPECIMENOrdering Facility: [facility] Address: [address] [place] [address] Performed By: #### 2 4321-2 ####[facility] LABORATORYCLIA [id number] [place] [address] [place] Chloride [Moles/Vol] 102 mmol/L Normal 98-107 [facility] Comment on above: Order Comment: Speci men Type: BLOOD SPECIMENOrdering Facility: [facility] Address: [address] [place] [address] Performed By: #### 2 4321-2 ####[facility] LABORATORYCLIA [id number] [place] [address] [place] CO2 [Moles/Vol] 26 mmol/L Normal 22-30 [facility] Comment on above: Order Comment: Speci men Type: BLOOD SPECIMENOrdering Facility: [facility] Address: [address] [place] [address] Performed By: #### 2 4321-2 ####[facility] LABORATORYCLIA [id number] [place] [address] [place] Creatinine [Mass/Vol] 0.74 mg/dL Normal 0.58-0.96 [facility] Comment on above: Order Comment: Marvin venegas Type: BLOOD SPECIMENOrdering Facility: [facility] Address: [address] [place] [address] Performed By: #### 2 4321-2 ####[facility] [id number] [address] [place] eGFRcr SerPlBld CKD-EPI 2020 80 mL/min/1.73m??? Normal >=60 [facility] Comment on above: Order Comment: Marvin venegas Type: BLOOD SPECIMENOrdering Facility: [facility] Address: [address] [place] [address] Result Comment: Debbie mated Glomerular Filtration Rate (eGFR) is calculated using the 2020 CKD-EPI creatinine equation. This equation utilizes serum creatinine, sex, and age as parameters. The creatinine assay has traceable calibration to isotope dilution-mass spectrometry. Refer to KDIGO guidelines for clinical interpretation. In patients with unstable renal function, e.g. those with acute kidney injury, the eGFR may not accurately reflect actual GFR. Performed By: #### 2 4321-2 ####[facility] [id number] [address] [place] Glucose [Mass/Vol] 105 mg/dL High 74-99 [facility] Comment on above: Order Comment: Marvin venegas Type: BLOOD SPECIMENOrdering Facility: [facility] Address: [address] [place] [address] Result Comment: The [place] Diabetes Association (ADA) provides guidance for cutoff values for fasting glucose and random glucose. The ADA defines fasting as no caloric intake for at least 8 hours. Fasting plasma glucose results between 100 to 125 mg/dL indicate increased risk for diabetes (prediabetes). Fasting plasma glucose results greater than or equal to 126 mg/dL meet the criteria for diagnosis of diabetes. In the absence of unequivocal hyperglycemia, results should be confirmed by repeat testing. In a patient with classic symptoms of hyperglycemia or hyperglycemic crisis, random plasma glucose results greater than or equal to 200 mg/dL meet the criteria for diagnosis of diabetes. Reference: Standards of Medical Care in Diabetes 2016, [place] Diabetes Association. Diabetes Care. 2016.39(Suppl 1). Performed By: #### 2 4321-2 ####[facility] LABORATORYCLIA [id number] [address] [place] [facility] Potassium [Moles/Vol] 4.0 mmol/L Normal 3.7-5.1 [facility] Comment on above: Order Comment: Speci men Type: BLOOD SPECIMENOrdering Facility: [facility] Address: [address] [place] [address] Performed By: #### 2 4321-2 ####[facility] LABORATORYCLIA [id number] [place] [id number] [facility] Sodium [Moles/Vol] 137 mmol/L Normal 136-144 [facility] Comment on above: Order Comment: Speci men Type: BLOOD SPECIMENOrdering Facility: [facility] Address: [address] [place] [address] Performed By: #### 2 4321-2 ####[facility] LABORATORYCLIA [id number] [address] Urea nitrogen [Mass/Vol] 14 mg/dL Normal 7-21 [facility] Comment on above: Order Comment: Speci men Type: BLOOD SPECIMENOrdering Facility: [facility] Address: [address] [place] [address] Performed By: #### 2 4321-2 ####[facility] LABORATORYCLIA [id number] [address] CBC panel Auto (Bld)on 07-25 Erythrocyte distribution width (RBC) [Ratio] 16.1 % High 11.5-15.0 [facility] Comment on above: Order Comment: Speci men Type: BLOOD SPECIMENOrdering Facility: [facility] Address: [address] [place] [address] Performed By: #### 5 8410-2 ####[facility] LABORATORYCLIA [id number] [place] [address] [place] Hematocrit (Bld) [Volume fraction] 24.9 % Low 36.0-46.0 [facility] Comment on above: Order Comment: Speci men Type: BLOOD SPECIMENOrdering Facility: [facility] Address: [address] [place] [address] Performed By: #### 5 8410-2 ####[facility] LABORATORYCLIA [id number] [address] [place] Hemoglobin (Bld) [Mass/Vol] 8.0 g/dL Low 11.5-15.5 [facility] Comment on above: Order Comment: Speci men Type: BLOOD SPECIMENOrdering Facility: [facility] Address: [address] [place] [address] Performed By: #### 5 8410-2 ####[facility] LABORATORYCLIA [id number] [address] [place] MCH (RBC) [Entitic mass] 30.9 pg Normal 26.0-34.0 [facility] Comment on above: Order Comment: Speci men Type: BLOOD SPECIMENOrdering Facility: [facility] Address: [address] [place] [address] Performed By: #### 5 8410-2 ####[facility] LABORATORYCLIA [id number] [address] [place] MCHC (RBC) [Mass/Vol] 32.1 g/dL Normal 30.5-36.0 [facility] Comment on above: Order Comment: Speci men Type: BLOOD SPECIMENOrdering Facility: [facility] Address: [address] [place] [address] Performed By: #### 5 8410-2 ####[facility] LABORATORYCLIA [id number] [address] [place] MCV (RBC) [Entitic vol] 96.1 fL Normal 80.0-100.0 [facility] Comment on above: Order Comment: Speci men Type: BLOOD SPECIMENOrdering Facility: [facility] Address: [address] [place] [address] Performed By: #### 5 8410-2 ####[facility] LABORATORYCLIA [id number] [address] [place] Nucleated RBC (Bld) [#/Vol] 10*3/uL Normal <0.01 [facility] Comment on above: Order Comment: Speci men Type: BLOOD SPECIMENOrdering Facility: [facility] Address: [address] [place] [address] Performed By: #### 5 8410-2 ####[facility] LABORATORYCLIA [id number] [address] [place] Platelet mean volume (Bld) [Entitic vol] 10.0 fL Normal 9.0-12.7 [facility] Comment on above: Order Comment: Speci men Type: BLOOD SPECIMENOrdering Facility: [facility] Address: [address] [place] [address] Performed By: #### 5 8410-2 ####[facility] LABORATORYCLIA [id number] [address] [place] Platelets (Bld) [#/Vol] 104 10*3/uL Low 150-400 [facility] Comment on above: Order Comment: Speci men Type: BLOOD SPECIMENOrdering Facility: [facility] Address: [address] [place] [address] Performed By: #### 5 8410-2 ####[facility] LABORATORYCLIA [id number] [address] [place] RBC (Bld) [#/Vol] 2.59 10*6/uL Low 3.90-5.20 [facility] Comment on above: Order Comment: Speci men Type: BLOOD SPECIMENOrdering Facility: [facility] Address: [address] [place] [address] Performed By: #### 5 8410-2 ####[facility] LABORATORYCLIA [id number] [address] [place] WBC (Bld) [#/Vol] 6.56 10*3/uL Normal 3.70-11.00 [facility] Comment on above: Order Comment: Speci men Type: BLOOD SPECIMENOrdering Facility: [facility] Address: [address] [place] [address] Performed By: #### 5 8410-2 ####[facility] LABORATORYCLIA [id number] [place] [address] [place] Basic metabolic 2000 panelon 07-24-2025 Anion gap [Moles/Vol] 10 mmol/L Normal 8-15 [facility] Comment on above: Order Comment: Speci men Type: BLOOD SPECIMENOrdering Facility: [facility] Address: [address] [place] [address] Performed By: #### 2 4321-2 ####[facility] LABORATORYCLIA [id number] [place] [address] [place] Calcium [Mass/Vol] 8.2 mg/dL Low 8.5-10.2 [facility] Comment on above: Order Comment: Speci men Type: BLOOD SPECIMENOrdering Facility: [facility] Address: [address] [place] [address] Performed By: #### 2 4321-2 ####[facility] LABORATORYCLIA [id number] [address] [place] Chloride [Moles/Vol] 104 mmol/L Normal 98-107 [facility] Comment on above: Order Comment: Speci men Type: BLOOD SPECIMENOrdering Facility: [facility] Address: [address] [place] [address] Performed By: #### 2 4321-2 ####[facility] LABORATORYCLIA [id number] [place] [address] [place] CO2 [Moles/Vol] 25 mmol/L Normal 22-30 [facility] Comment on above: Order Comment: Speci men Type: BLOOD SPECIMENOrdering Facility: [facility] Address: [address] [place] [address] Performed By: #### 2 4321-2 ####[facility] LABORATORYCLIA [id number] [place] [address] [place] Creatinine [Mass/Vol] 0.81 mg/dL Normal 0.58-0.96 [facility] Comment on above: Order Comment: Lindarebecca venegas Type: BLOOD SPECIMENOrdering Facility: [facility] Address: [address] [place] [address] Performed By: #### 2 4321-2 ####[facility] LABORATORYCLIA [id number] [place] [id number] [facility] eGFRcr SerPlBld CKD-EPI 2020 72 mL/min/1.73m??? Normal >=60 [facility] Comment on above: Order Comment: Lindarebecca venegas Type: BLOOD SPECIMENOrdering Facility: [facility] Address: [address] [place] [address] Result Comment: Debbie mated Glomerular Filtration Rate (eGFR) is calculated using the 2020 CKD-EPI creatinine equation. This equation utilizes serum creatinine, sex, and age as parameters. The creatinine assay has traceable calibration to isotope dilution-mass spectrometry. Refer to KDIGO guidelines for clinical interpretation. In patients with unstable renal function, e.g. those with acute kidney injury, the eGFR may not accurately reflect actual GFR. Performed By: #### 2 4321-2 ####[facility] LABORATORYCLIA [id number] [address] [place] [facility] Glucose [Mass/Vol] 109 mg/dL High 74-99 [facility] Comment on above: Order Comment: Lindarebecca venegas Type: BLOOD SPECIMENOrdering Facility: [facility] Address: [address] [place] [address] Result Comment: The [place] Diabetes Association (ADA) provides guidance for cutoff values for fasting glucose and random glucose. The ADA defines fasting as no caloric intake for at least 8 hours. Fasting plasma glucose results between 100 to 125 mg/dL indicate increased risk for diabetes (prediabetes). Fasting plasma glucose results greater than or equal to 126 mg/dL meet the criteria for diagnosis of diabetes. In the absence of unequivocal hyperglycemia, results should be confirmed by repeat testing. In a patient with classic symptoms of hyperglycemia or hyperglycemic crisis, random plasma glucose results greater than or equal to 200 mg/dL meet the criteria for diagnosis of diabetes. Reference: Standards of Medical Care in Diabetes 2016, [place] Diabetes Association. Diabetes Care. 2016.39(Suppl 1). Performed By: #### 2 4321-2 ####[facility] LABORATORYCLIA [id number] [address] [place] Potassium [Moles/Vol] 4.1 mmol/L Normal 3.7-5.1 [facility] Comment on above: Order Comment: Speci men Type: BLOOD SPECIMENOrdering Facility: [facility] Address: [address] [place] [address] Performed By: #### 2 4321-2 ####[facility] LABORATORYCLIA [id number] [address] [place] [facility] Sodium [Moles/Vol] 139 mmol/L Normal 136-144 [facility] Comment on above: Order Comment: Speci men Type: BLOOD SPECIMENOrdering Facility: [facility] Address: [address] [place] [address] Performed By: #### 2 4321-2 ####[facility] LABORATORYCLIA [id number] [address] STATES [facility] Urea nitrogen [Mass/Vol] 14 mg/dL Normal 7-21 [facility] Comment on above: Order Comment: Speci men Type: BLOOD SPECIMENOrdering Facility: [facility] Address: [address] [place] [address] Performed By: #### 2 4321-2 ####[facility] LABORATORYCLIA [id number] [address] CBC panel Auto (Bld)on 07-24 Erythrocyte distribution width (RBC) [Ratio] 16.2 % High 11.5-15.0 [facility] Comment on above: Order Comment: Speci men Type: BLOOD SPECIMENOrdering Facility: [facility] Address: [address] [place] [address] Performed By: #### 5 8410-2 ####[facility] LABORATORYCLIA [id number] [address] Hematocrit (Bld) [Volume fraction] 26.0 % Low 36.0-46.0 [facility] Comment on above: Order Comment: Speci men Type: BLOOD SPECIMENOrdering Facility: [facility] Address: [address] [place] [address] Performed By: #### 5 8410-2 ####[facility] LABORATORYCLIA [id number] [address] [place] [facility] Hemoglobin (Bld) [Mass/Vol] 8.2 g/dL Low 11.5-15.5 [facility] Comment on above: Order Comment: Speci men Type: BLOOD SPECIMENOrdering Facility: [facility] Address: [address] [place] [address] Performed By: #### 5 8410-2 ####[facility] LABORATORYCLIA [id number] [address] [place] MCH (RBC) [Entitic mass] 30.7 pg Normal 26.0-34.0 [facility] Comment on above: Order Comment: Speci men Type: BLOOD SPECIMENOrdering Facility: [facility] Address: [address] [place] [address] Performed By: #### 5 8410-2 ####[facility] LABORATORYCLIA [id number] [address] [place] MCHC (RBC) [Mass/Vol] 31.5 g/dL Normal 30.5-36.0 [facility] Comment on above: Order Comment: Speci men Type: BLOOD SPECIMENOrdering Facility: [facility] Address: [address] [place] [address] Performed By: #### 5 8410-2 ####[facility] LABORATORYCLIA [id number] [address] [place] MCV (RBC) [Entitic vol] 97.4 fL Normal 80.0-100.0 [facility] Comment on above: Order Comment: Speci men Type: BLOOD SPECIMENOrdering Facility: [facility] Address: [address] [place] [address] Performed By: #### 5 8410-2 ####[facility] LABORATORYCLIA [id number] [place] [address] [place] Nucleated RBC (Bld) [#/Vol] 10*3/uL Normal <0.01 [facility] Comment on above: Order Comment: Speci men Type: BLOOD SPECIMENOrdering Facility: [facility] Address: [address] [place] [address] Performed By: #### 5 8410-2 ####[facility] LABORATORYCLIA [id number] [address] [place] Platelet mean volume (Bld) [Entitic vol] 10.4 fL Normal 9.0-12.7 [facility] Comment on above: Order Comment: Speci men Type: BLOOD SPECIMENOrdering Facility: [facility] Address: [address] [place] [address] Performed By: #### 5 8410-2 ####[facility] LABORATORYCLIA [id number] [address] [place] Platelets (Bld) [#/Vol] 114 10*3/uL Low 150-400 [facility] Comment on above: Order Comment: Speci men Type: BLOOD SPECIMENOrdering Facility: [facility] Address: [address] [place] [address] Performed By: #### 5 8410-2 ####[facility] LABORATORYCLIA [id number] [address] [place] RBC (Bld) [#/Vol] 2.67 10*6/uL Low 3.90-5.20 [facility] Comment on above: Order Comment: Speci men Type: BLOOD SPECIMENOrdering Facility: [facility] Address: [address] [place] [address] Performed By: #### 5 8410-2 ####[facility] LABORATORYCLIA [id number] [address] OF [place] WBC (Bld) [#/Vol] 7.71 10*3/uL Normal 3.70-11.00 [facility] Comment on above: Order Comment: Speci men Type: BLOOD SPECIMENOrdering Facility: [facility] Address: [address] [place] [address] Performed By: #### 5 8410-2 ####[facility] LABORATORYCLIA [id number] [address] STATES [facility] Erythrocyte distribution width (RBC) [Ratio] 16.1 % High 11.5-15.0 [facility] Comment on above: Order Comment: Speci men Type: BLOOD SPECIMENOrdering Facility: [facility] Address: [address] [place] [address] Performed By: #### 5 8410-2 ####[facility] LABORATORYCLIA [id number] [address] STATES OF [facility] Hematocrit (Bld) [Volume fraction] 28.7 % Low 36.0-46.0 [facility] Comment on above: Order Comment: Speci men Type: BLOOD SPECIMENOrdering Facility: [facility] Address: [address] [place] [address] Performed By: #### 5 8410-2 ####[facility] LABORATORYCLIA [id number] [address] [place] Hemoglobin (Bld) [Mass/Vol] 8.8 g/dL Low 11.5-15.5 [facility] Comment on above: Order Comment: Speci men Type: BLOOD SPECIMENOrdering Facility: [facility] Address: [address] [place] [address] Performed By: #### 5 8410-2 ####[facility] LABORATORYCLIA [id number] [address] STATES [facility] MCH (RBC) [Entitic mass] 30.2 pg Normal 26.0-34.0 [facility] Comment on above: Order Comment: Speci men Type: BLOOD SPECIMENOrdering Facility: [facility] Address: [address] [place] [address] Performed By: #### 5 8410-2 ####[facility] LABORATORYCLIA [id number] [address] [place] MCHC (RBC) [Mass/Vol] 30.7 g/dL Normal 30.5-36.0 [facility] Comment on above: Order Comment: Speci men Type: BLOOD SPECIMENOrdering Facility: [facility] Address: [address] [place] [address] Performed By: #### 5 8410-2 ####[facility] LABORATORYCLIA [id number] [address] MCV (RBC) [Entitic vol] 98.6 fL Normal 80.0-100.0 [facility] Comment on above: Order Comment: Speci men Type: BLOOD SPECIMENOrdering Facility: [facility] Address: [address] [place] [address] Performed By: #### 5 8410-2 ####[facility] LABORATORYCLIA [id number] [address] Nucleated RBC (Bld) [#/Vol] 10*3/uL Normal <0.01 [facility] Comment on above: Order Comment: Speci men Type: BLOOD SPECIMENOrdering Facility: [facility] Address: [address] [place] [address] Performed By: #### 5 8410-2 ####[facility] LABORATORYCLIA [id number] [address] Platelet mean volume (Bld) [Entitic vol] 9.8 fL Normal 9.0-12.7 [facility] Comment on above: Order Comment: Speci men Type: BLOOD SPECIMENOrdering Facility: [facility] Address: [address] [place] [address] Performed By: #### 5 8410-2 ####[facility] LABORATORYCLIA [id number] [address] Platelets (Bld) [#/Vol] 112 10*3/uL Low 150-400 [facility] Comment on above: Order Comment: Speci men Type: BLOOD SPECIMENOrdering Facility: [facility] Address: [address] [place] [address] Performed By: #### 5 8410-2 ####[facility] LABORATORYCLIA [id number] [place] [address] [place] RBC (Bld) [#/Vol] 2.91 10*6/uL Low 3.90-5.20 [facility] Comment on above: Order Comment: Speci men Type: BLOOD SPECIMENOrdering Facility: [facility] Address: [address] [place] [address] Performed By: #### 5 8410-2 ####[facility] LABORATORYCLIA [id number] [address] [place] WBC (Bld) [#/Vol] 7.94 10*3/uL Normal 3.70-11.00 [facility] Comment on above: Order Comment: Speci men Type: BLOOD SPECIMENOrdering Facility: [facility] Address: [address] [place] [address] Performed By: #### 5 8410-2 ####[facility] LABORATORYCLIA [id number] [address] STATES OF [facility] Erythrocyte distribution width (RBC) [Ratio] 16.2 % High 11.5-15.0 [facility] Comment on above: Order Comment: Speci men Type: BLOOD SPECIMENOrdering Facility: [facility] Address: [address] [place] [address] Performed By: #### 5 8410-2 ####[facility] LABORATORYCLIA [id number] [address] [place] Hematocrit (Bld) [Volume fraction] 26.0 % Low 36.0-46.0 [facility] Comment on above: Order Comment: Speci men Type: BLOOD SPECIMENOrdering Facility: [facility] Address: [address] [place] [address] Performed By: #### 5 8410-2 ####[facility] LABORATORYCLIA [id number] [address] [place] Hemoglobin (Bld) [Mass/Vol] 8.2 g/dL Low 11.5-15.5 [facility] Comment on above: Order Comment: Speci men Type: BLOOD SPECIMENOrdering Facility: [facility] Address: [address] [place] [address] Performed By: #### 5 8410-2 ####[facility] LABORATORYCLIA [id number] [address] MCH (RBC) [Entitic mass] 30.7 pg Normal 26.0-34.0 [facility] Comment on above: Order Comment: Speci men Type: BLOOD SPECIMENOrdering Facility: [facility] Address: [address] [place] [address] Performed By: #### 5 8410-2 ####[facility] LABORATORYCLIA [id number] [address] MCHC (RBC) [Mass/Vol] 31.5 g/dL Normal 30.5-36.0 [facility] Comment on above: Order Comment: Speci men Type: BLOOD SPECIMENOrdering Facility: [facility] Address: [address] [place] [address] Performed By: #### 5 8410-2 ####[facility] LABORATORYCLIA [id number] [address] MCV (RBC) [Entitic vol] 97.4 fL Normal 80.0-100.0 [facility] Comment on above: Order Comment: Speci men Type: BLOOD SPECIMENOrdering Facility: [facility] Address: [address] [place] [address] Performed By: #### 5 8410-2 ####[facility] LABORATORYCLIA [id number] [address] Nucleated RBC (Bld) [#/Vol] 10*3/uL Normal <0.01 [facility] Comment on above: Order Comment: Speci men Type: BLOOD SPECIMENOrdering Facility: [facility] Address: [address] [place] [address] Performed By: #### 5 8410-2 ####[facility] LABORATORYCLIA [id number] [place] [address] [place] Platelet mean volume (Bld) [Entitic vol] 10.4 fL Normal 9.0-12.7 [facility] Comment on above: Order Comment: Speci men Type: BLOOD SPECIMENOrdering Facility: [facility] Address: [address] [place] [address] Performed By: #### 5 8410-2 ####[facility] LABORATORYCLIA [id number] [place] [address] [place] Platelets (Bld) [#/Vol] 106 10*3/uL Low 150-400 [facility] Comment on above: Order Comment: Speci men Type: BLOOD SPECIMENOrdering Facility: [facility] Address: [address] [place] [address] Result Comment: No c lot detected. Performed By: #### 5 8410-2 ####[facility] LABORATORYCLIA [id number] [address] STATES OF [facility] RBC (Bld) [#/Vol] 2.67 10*6/uL Low 3.90-5.20 [facility] Comment on above: Order Comment: Speci men Type: BLOOD SPECIMENOrdering Facility: [facility] Address: [address] [place] [address] Performed By: #### 5 8410-2 ####[facility] LABORATORYCLIA [id number] [address] [place] WBC (Bld) [#/Vol] 6.65 10*3/uL Normal 3.70-11.00 [facility] Comment on above: Order Comment: Speci men Type: BLOOD SPECIMENOrdering Facility: [facility] Address: [address] [place] [address] Performed By: #### 5 8410-2 ####[facility] LABORATORYCLIA [id number] [address] Erythrocyte distribution width (RBC) [Ratio] 16.4 % High 11.5-15.0 [facility] Comment on above: Order Comment: Speci men Type: BLOOD SPECIMENOrdering Facility: [facility] Address: [address] [place] [address] Performed By: #### 5 8410-2 ####[facility] LABORATORYCLIA [id number] [address] OF [facility] Hematocrit (Bld) [Volume fraction] 25.5 % Low 36.0-46.0 [facility] Comment on above: Order Comment: Speci men Type: BLOOD SPECIMENOrdering Facility: [facility] Address: [address] [place] [address] Performed By: #### 5 8410-2 ####[facility] LABORATORYCLIA [id number] [address] STATES OF [facility] Hemoglobin (Bld) [Mass/Vol] 8.2 g/dL Low 11.5-15.5 [facility] Comment on above: Order Comment: Speci men Type: BLOOD SPECIMENOrdering Facility: [facility] Address: [address] [place] [address] Performed By: #### 5 8410-2 ####[facility] LABORATORYCLIA [id number] [address] STATES OF [facility] MCH (RBC) [Entitic mass] 30.7 pg Normal 26.0-34.0 [facility] Comment on above: Order Comment: Speci men Type: BLOOD SPECIMENOrdering Facility: [facility] Address: [address] [place] [address] Performed By: #### 5 8410-2 ####[facility] LABORATORYCLIA [id number] [address] [place] MCHC (RBC) [Mass/Vol] 32.2 g/dL Normal 30.5-36.0 [facility] Comment on above: Order Comment: Speci men Type: BLOOD SPECIMENOrdering Facility: [facility] Address: [address] [place] [address] Performed By: #### 5 8410-2 ####[facility] LABORATORYCLIA [id number] [address] [place] MCV (RBC) [Entitic vol] 95.5 fL Normal 80.0-100.0 [facility] Comment on above: Order Comment: Speci men Type: BLOOD SPECIMENOrdering Facility: [facility] Address: [address] [place] [address] Performed By: #### 5 8410-2 ####[facility] LABORATORYCLIA [id number] [address] OF [facility] Nucleated RBC (Bld) [#/Vol] 10*3/uL Normal <0.01 [facility] Comment on above: Order Comment: Speci men Type: BLOOD SPECIMENOrdering Facility: [facility] Address: [address] [place] [address] Performed By: #### 5 8410-2 ####[facility] LABORATORYCLIA [id number] [address] OF [facility] Platelet mean volume (Bld) [Entitic vol] 10.6 fL Normal 9.0-12.7 [facility] Comment on above: Order Comment: Speci men Type: BLOOD SPECIMENOrdering Facility: [facility] Address: [address] [place] [address] Performed By: #### 5 8410-2 ####[facility] LABORATORYCLIA [id number] [address] OF [facility] Platelets (Bld) [#/Vol] 103 10*3/uL Low 150-400 [facility] Comment on above: Order Comment: Speci men Type: BLOOD SPECIMENOrdering Facility: [facility] Address: [address] [place] [address] Result Comment: No c lot detected. Performed By: #### 5 8410-2 ####[facility] LABORATORYCLIA [id number] [address] [place] RBC (Bld) [#/Vol] 2.67 10*6/uL Low 3.90-5.20 [facility] Comment on above: Order Comment: Speci men Type: BLOOD SPECIMENOrdering Facility: [facility] Address: [address] [place] [address] Performed By: #### 5 8410-2 ####[facility] LABORATORYCLIA [id number] [place] [address] [place] WBC (Bld) [#/Vol] 6.95 10*3/uL Normal 3.70-11.00 [facility] Comment on above: Order Comment: Speci men Type: BLOOD SPECIMENOrdering Facility: [facility] Address: [address] [place] [address] Performed By: #### 5 8410-2 ####[facility] LABORATORYCLIA [id number] [place] [address] [facility] [place] THERAPY NTon 07-24-2025 THERAPY NT HNO ID: [id number] Author: ARTHUR ARCINIEGA, PT Service: Physical Therapy Author Type: Physical Therapist Type: Therapy (PT/OT/Speech/Resp) Filed: 07/24/2025 14:26 Note Text: Physical Therapy Evaluation Summary SERVICE DATE: 07/24/2025 SERVICE TIME: 1340 to 1405 ROOM: [place] [address] PT 6 Clicks Score: 16 DISCHARGE RECOMMENDATIONS Subacute/SNF Recommended Discharge Disposition Comments: Fall risk below baseline Recommended Discharge Disposition Due to: Functional deficits requiring ongoing therapy service prior to discharge home., Patient requires daily (5x/week) skilled therapy at next level of care. ASSESSMENT Response to Therapy Interventions: Cognitive Deficits, Good Participation in Activities, Low Activity Tolerance Patient is below her baseline adn remains a fall risk. has had several falls with injury in last few years. Patient is not currently at safe home going level. Recommend SNF. PRECAUTIONS Bed/Chair Alarm, Fall Risk CURRENT HOSPITAL COURSE Fall with SAH no intervention needed from NS Relevant Past Medical History: Falls with fracture in past, 02/20 RECENT HIP FRACTURE HOME LIVING Patient Lives With: Other: See Comment Comments: Friend Assistance Available: PRN Entry To Home: Stairs Number Of Stairs Into Home: 4 Number Of Stairs To Bed/Bath: 0 Equipment Owned: Cane, Shower Chair, Walker- Standard, Walker- Wheeled, Rollator PRIOR FUNCTIONAL LEVEL Within Functional Limits Was indep, driving, shopping, patient and her room mate helped eachother at home SUBJECTIVE AGrees to session THERAPY DIAGNOSIS Reduced mobility-other, Muscle Weakness (generalized), Abnormalities of gait and mobility-other, General symptoms and signs-other TREATMENT INTERVENTIONS Evaluation, Gait Training (40321) Timed Code Treatment (minutes): 10 Skilled Treatment Time (minutes): 25 $ Evaluation-Moderate (48407) Billed Units: 1 unit Gait Training (22809) Treatment Minutes: 10 $ Gait Training (73095) Billed Units: 1 unit Skilled Intervention(s): Instruction in sit to stand technique with proper hand placement and body positioning at edge of the bed, pushing from mattress with one hand on the walker and one hand on the bed and tucking feet back to stand with nose over toes. Instruction in stand to sit technique with LE's touching the bed, reaching back for the mattress or bedrail and slowly sitting. Instruction in use of equipment, cues for sequence and pattern with the walker. Cued to keep it closer and to stand up tall and look up not at the floor. And to keep hands on the walker at all times. TRAINING AND EDUCATION PROVIDED Benefits of In-Hospital Mobility, Falls Prevention, Gait Pattern, Reduction of Deviations THERAPEUTIC SKILLS USED Cues for Sequencing/Proper Technique for Activity, Cuing Tactile, Cuing Verbal FUNCTIONAL STATUS Bed Mobility Rolling: Contact Guard Assistance Supine To Sit: Minimal Assistance Sit to Supine: Minimal Assistance Transfers Sit To Stand: Minimal Assistance Stand To Sit: Minimal Assistance Bed to Chair Gait Minimal Assistance Gait Device: Wheeled Walker General Deviations/Observati ons: Nevaeh decreased, Difficulty changing direction/turning, Flexed trunk posture, Shuffling Gait, Improper distancing from assistive device, Visual scanning/environment al awareness decreased Gait Distance (feet): 45ft Stairs RANGE OF MOTION WFL STRENGTH WFL BALANCE Static Sitting Balance: Good Dynamic Sitting Balance: Good Static Standing Balance: Fair Dynamic Standing Balance: Fair GOALS Able to Perform HEP with: Independent Transfer Supine to/from Sit with: Independent Transfer Sit to/from Stand with: Independent Ambulate with: Independent Distance: 50 Device: Wheeled Walker Rehab Potential: Good Good Rehab Potential Due To: Good motivation ACUTE CARE TREATMENT PLAN PT Frequency: 3 Times Per Week (1-3) Treatment Interventions: Education, Strengthening SIGNATURE: Arthur Arciniega PT PATIENT NAME: Kim Cabrera DATE: July 24, 2025 TIME: 2:26 PM Normal [facility] THERAPY NT HNO ID: [id number] Author: GENOVEVA MITCHELL CCC-RECORD CLERK Service: Speech/Swallow Author Type: Speech Language Pathologist Type: Therapy (PT/OT/Speech/Resp) Filed: 07/24/2025 11:21 Note Text: Speech Therapy Speech Evaluation SERVICE DATE: 07/24/2025 SERVICE TIME: 1104 to 1119 ROOM: [place] [address] IMPRESSION Communication deficits identified: Cognitive deficits RECOMMENDATIONS Nursing Recommendations Promote insight/safety opportunities Response to Therapy Interventions: Good participation in activities Rehabilitation Precautions: Cognitive Linguistics Deficits DISCHARGE RECOMMENDATIONS Recommended Discharge Disposition: Outpatient Speech Therapy Justification for Recommended Discharge Disposition: Continued skilled RECORD CLERK care recommended after hospital discharge for:, new/worsened cognitive deficits related to current diagnosis CURRENT HOSPITAL COURSE Transfer from [place] post fall. 07/23 CT Brain: small acute SAH in right frontal and occipital lobes, small left parietal occipital subgaleal hematoma Reason for Speech Therapy Consult: TBI Relevant Past Medical History: CABG x2, COPD, asthma HOME ENVIRONMENT / PRIOR FUNCTIONAL LEVEL Prior Functional Level: Within Functional Limits Patient Lives With: Other: See Comment (Friend) Prior Swallowing Function/Diet Textures: Regular Consistency, Thin Liquids IDDSI Level 0 SUBJECTIVE Alert, up in bed and agreeable to evaluation THERAPY DIAGNOSIS Cognitive deficits following cerebral infarction TREATMENT INTERVENTIONS Speech Language Eval (27796) Skilled Treatment Time (minutes): 15 $ Speech Language Eval (05529) Billed Units: 1 unit TRAINING AND EDUCATION PROVIDED IN Cognitive Linguistic Strategies THERAPEUTIC SKILLS USED Discharge planning, Education on role of discipline / importance of activity, Verbal cuing OBJECTIVE Current Status Oral Hygiene: Clear, dry oral cavity Dentition: Retains Natural Dentition Current Feeding Method: Oral Current Diet Textures: Regular Consistency, Thin Liquids IDDSI Level 0 Current Level Of Communication: Verbal Current Management Of Secretions: Able to self-manage Oral Motor Exam: Within Functional Limits COGNITION Cognitive Status: Memory Deficits: Immediate, Short Term Executive Function Deficits: Problem Solving The Cognitive Log (Cog-Log) is designed to be a quick quantitative measure of cognition status for use at the bedside with rehabilitation inpatients. It is intended for individuals who have achieved consistent accurate orientation, such as measured by the Orientation Log (O-Log). The Cog-Log can be used to document cognitive progress on a daily basis. All items are scored from 0 to 3 for a total possible score of 30. 3 = correct spontaneous response 2 = correct upon logical cueing (e.g., That was yesterday, so today must be...) 1 = correct upon multiple choice or phonemic cueing 0 = incorrect despite cueing, inappropriate response, or unable to respond Stimulus Response/Score Date 12/29 Time 12/29 Name of Hospital 12/29 Repeat Address 12/01 20-1 12/29 Months Reversed 12/01 30 Seconds 12/01 [id number]-Ncyb 12/01 Go/No-Go 12/29 Address Recall 10/31 Total SPEECH/VOICE/LANGUAG E Speech Production: Within Functional Limits Expressive and Receptive Language: Within Functional Limits GOALS COGNITION: Patient will demonstrate knowledge of taught compensatory strategies for functional cognitive-linguistic skills Cognitive Goals: Patient will improve functional auditory memory skills to 90% accuracy given minimal cues so that the patient may apply safety precautions for personal welfare. Patient will demonstrate use of simple problem solving skills with 90% accuracy given minimal cues so that the patient may participate in personal discharge planning. Speech Rehab Potential: Good Good Rehab Potential Due To: Current objective clinical presentation, Good motivation Patient /Caregiver Goals: Improve Cognition ACUTE CARE TREATMENT PLAN ST Frequency: 1 Time Per Week Treatment Interventions: Cognitive-Linguistic Management Plan of Care Developed with: Patient Plan for next visit: Cognitive Linguistic Strategies SIGNATURE: Genoveva Mitchell CCC-RECORD CLERK PATIENT NAME: Kim Cabrera DATE: July 24, 2025 TIME: 11:20 AM Normal [facility] 25(OH)D3 SerPl-mCncon 2024 25-hydroxyvitamin D3 [Mass/Vol] 7.6 ng/mL Low >=30.0 [facility] Comment on above: Order Comment: Speci men Type: BLOOD SPECIMENOrdering Facility: [facility] Address: [address] [place] [address] Result Comment: Clas sification of 25 [place] Vitamin D status: Deficiency: <= 20.0 ng/ml. Insufficiency: 21.0-29.0 ng/ml. Sufficiency: >= 30.0 ng/ml. Performed By: #### 1 989-3 ####[facility] LABORATORYCLIA [id number] [place] [address] [place] Basic metabolic 2000 panelon 07-23-2025 Anion gap [Moles/Vol] 7 mmol/L Low 8-15 [facility] Comment on above: Order Comment: Speci men Type: BLOOD SPECIMENOrdering Facility: [facility] Address: [address] [place] [address] Performed By: #### 2 777-1, , ####[facility] LABORATORYCLIA [id number] [place] [address] [place] Calcium [Mass/Vol] 8.8 mg/dL Normal 8.5-10.2 [facility] Comment on above: Order Comment: Speci men Type: BLOOD SPECIMENOrdering Facility: [facility] Address: [address] [place] [address] Performed By: #### 2 777-1, , ####[facility] LABORATORYCLIA [id number] [place] [address] [place] Chloride [Moles/Vol] 104 mmol/L Normal 98-107 [facility] Comment on above: Order Comment: Speci men Type: BLOOD SPECIMENOrdering Facility: [facility] Address: [address] [place] [address] Performed By: #### 2 777-1, , ####[facility] LABORATORYCLIA [id number] [place] [address] [place] CO2 [Moles/Vol] 26 mmol/L Normal 22-30 [facility] Comment on above: Order Comment: Speci men Type: BLOOD SPECIMENOrdering Facility: [facility] Address: [address] [place] [address] Performed By: #### 2 777-1, 82017-3, ####[facility] LABORATORYCLIA [id number] [place] [address] [place] Creatinine [Mass/Vol] 0.84 mg/dL Normal 0.58-0.96 [facility] Comment on above: Order Comment: Speci men Type: BLOOD SPECIMENOrdering Facility: [facility] Address: [address] [place] [address] Performed By: #### 2 777-1, 25750-4, ####[facility] [id number] [address] [place] eGFRcr SerPlBld CKD-EPI 2020 69 mL/min/1.73m??? Normal >=60 [facility] Comment on above: Order Comment: Marvin venegas Type: BLOOD SPECIMENOrdering Facility: [facility] Address: [address] [place] [address] Result Comment: Debbie mated Glomerular Filtration Rate (eGFR) is calculated using the 2020 CKD-EPI creatinine equation. This equation utilizes serum creatinine, sex, and age as parameters. The creatinine assay has traceable calibration to isotope dilution-mass spectrometry. Refer to KDIGO guidelines for clinical interpretation. In patients with unstable renal function, e.g. those with acute kidney injury, the eGFR may not accurately reflect actual GFR. Performed By: #### 2 777-1, 61839-1, ####[facility]PITALIA [id number] [address] OF [facility] Glucose [Mass/Vol] 115 mg/dL High 74-99 [facility] Comment on above: Order Comment: Marvin venegas Type: BLOOD SPECIMENOrdering Facility: [facility] Address: [address] [place] [address] Result Comment: The [place] Diabetes Association (ADA) provides guidance for cutoff values for fasting glucose and random glucose. The ADA defines fasting as no caloric intake for at least 8 hours. Fasting plasma glucose results between 100 to 125 mg/dL indicate increased risk for diabetes (prediabetes). Fasting plasma glucose results greater than or equal to 126 mg/dL meet the criteria for diagnosis of diabetes. In the absence of unequivocal hyperglycemia, results should be confirmed by repeat testing. In a patient with classic symptoms of hyperglycemia or hyperglycemic crisis, random plasma glucose results greater than or equal to 200 mg/dL meet the criteria for diagnosis of diabetes. Reference: Standards of Medical Care in Diabetes 2016, [place] Diabetes Association. Diabetes Care. 2016.39(Suppl 1). Performed By: #### 2 777-1, 84126-6, ####[facility] LABORATORYCLIA [id number] [place] [address] [place] Potassium [Moles/Vol] 4.8 mmol/L Normal 3.7-5.1 [facility] Comment on above: Order Comment: Speci men Type: BLOOD SPECIMENOrdering Facility: [facility] Address: [address] [place] [address] Performed By: #### 2 777-1, 86944-0, ####[facility] LABORATORYCLIA [id number] [address] STATES OF [facility] Sodium [Moles/Vol] 137 mmol/L Normal 136-144 [facility] Comment on above: Order Comment: Speci men Type: BLOOD SPECIMENOrdering Facility: [facility] Address: [address] [place] [address] Performed By: #### 2 777-1, 38612-6, ####[facility] LABORATORYCLIA [id number] [address] STATES OF [facility] Urea nitrogen [Mass/Vol] 19 mg/dL Normal 7-21 [facility] Comment on above: Order Comment: Speci men Type: BLOOD SPECIMENOrdering Facility: [facility] Address: [address] [place] [address] Performed By: #### 2 777-1, 24838-3, ####[facility] LABORATORYCLIA [id number] [address] [place] CBC panel Auto (Bld)on 07-23 Erythrocyte distribution width (RBC) [Ratio] 16.2 % High 11.5-15.0 [facility] Comment on above: Order Comment: Speci men Type: BLOOD SPECIMENOrdering Facility: [facility] Address: [address] [place] [address] Performed By: #### 5 8410-2 ####[facility] LABORATORYCLIA [id number] [address] [place] Hematocrit (Bld) [Volume fraction] 26.7 % Low 36.0-46.0 [facility] Comment on above: Order Comment: Speci men Type: BLOOD SPECIMENOrdering Facility: [facility] Address: [address] [place] [address] Performed By: #### 5 8410-2 ####[facility] LABORATORYCLIA [id number] [address] STATES OF [facility] Hemoglobin (Bld) [Mass/Vol] 8.7 g/dL Low 11.5-15.5 [facility] Comment on above: Order Comment: Speci men Type: BLOOD SPECIMENOrdering Facility: [facility] Address: [address] [place] [address] Performed By: #### 5 8410-2 ####[facility] LABORATORYCLIA [id number] [address] OF [facility] MCH (RBC) [Entitic mass] 31.4 pg Normal 26.0-34.0 [facility] Comment on above: Order Comment: Speci men Type: BLOOD SPECIMENOrdering Facility: [facility] Address: [address] [place] [address] Performed By: #### 5 8410-2 ####[facility] LABORATORYCLIA [id number] [address] MCHC (RBC) [Mass/Vol] 32.6 g/dL Normal 30.5-36.0 [facility] Comment on above: Order Comment: Speci men Type: BLOOD SPECIMENOrdering Facility: [facility] Address: [address] [place] [address] Performed By: #### 5 8410-2 ####[facility] LABORATORYCLIA [id number] [address] [place] MCV (RBC) [Entitic vol] 96.4 fL Normal 80.0-100.0 [facility] Comment on above: Order Comment: Speci men Type: BLOOD SPECIMENOrdering Facility: [facility] Address: [address] [place] [address] Performed By: #### 5 8410-2 ####[facility] LABORATORYCLIA [id number] [address] [place] Nucleated RBC (Bld) [#/Vol] 0.02 10*3/uL High <0.01 [facility] Comment on above: Order Comment: Speci men Type: BLOOD SPECIMENOrdering Facility: [facility] Address: [address] [place] [address] Performed By: #### 5 8410-2 ####[facility] LABORATORYCLIA [id number] [address] [place] Platelet mean volume (Bld) [Entitic vol] 10.2 fL Normal 9.0-12.7 [facility] Comment on above: Order Comment: Speci men Type: BLOOD SPECIMENOrdering Facility: [facility] Address: [address] [place] [address] Performed By: #### 5 8410-2 ####[facility] LABORATORYCLIA [id number] [address] OF [facility] Platelets (Bld) [#/Vol] 116 10*3/uL Low 150-400 [facility] Comment on above: Order Comment: Speci men Type: BLOOD SPECIMENOrdering Facility: [facility] Address: [address] [place] [address] Result Comment: No c lot detected. Performed By: #### 5 8410-2 ####[facility] LABORATORYCLIA [id number] [address] [place] RBC (Bld) [#/Vol] 2.77 10*6/uL Low 3.90-5.20 [facility] Comment on above: Order Comment: Speci men Type: BLOOD SPECIMENOrdering Facility: [facility] Address: [address] [place] [address] Performed By: #### 5 8410-2 ####[facility]ORATORYCLIA [id number] [address] [place] WBC (Bld) [#/Vol] 8.57 10*3/uL Normal 3.70-11.00 [facility] Comment on above: Order Comment: Speci men Type: BLOOD SPECIMENOrdering Facility: [facility] Address: [address] [place] [address] Performed By: #### 5 8410-2 ####[facility] LABORATORYCLIA [id number] [address] Erythrocyte distribution width (RBC) [Ratio] 16.2 % High 11.5-15.0 [facility] Comment on above: Order Comment: Speci men Type: BLOOD SPECIMENOrdering Facility: [facility] Address: [address] [place] [address] Performed By: #### 5 8410-2 ####[facility]ORATORYCLIA [id number] [address] Hematocrit (Bld) [Volume fraction] 28.9 % Low 36.0-46.0 [facility] Comment on above: Order Comment: Speci men Type: BLOOD SPECIMENOrdering Facility: [facility] Address: [address] [place] [address] Performed By: #### 5 8410-2 ####[facility]ORATORYCLIA [id number] [address] STATES [place] [facility] Hemoglobin (Bld) [Mass/Vol] 8.8 g/dL Low 11.5-15.5 [facility] Comment on above: Order Comment: Speci men Type: BLOOD SPECIMENOrdering Facility: [facility] Address: [address] [place] [address] Performed By: #### 5 8410-2 ####[facility]ORATORYCLIA [id number] [address] MCH (RBC) [Entitic mass] 29.8 pg Normal 26.0-34.0 [facility] Comment on above: Order Comment: Speci men Type: BLOOD SPECIMENOrdering Facility: [facility] Address: [address] [place] [address] Performed By: #### 5 8410-2 ####[facility]ORATORYCLIA [id number] [address] MCHC (RBC) [Mass/Vol] 30.4 g/dL Low 30.5-36.0 [facility] Comment on above: Order Comment: Speci men Type: BLOOD SPECIMENOrdering Facility: [facility] Address: [address] [place] [address] Performed By: #### 5 8410-2 ####[facility]ORATORYCLIA [id number] [address] MCV (RBC) [Entitic vol] 98.0 fL Normal 80.0-100.0 [facility] Comment on above: Order Comment: Speci men Type: BLOOD SPECIMENOrdering Facility: [facility] Address: [address] [place] [address] Performed By: #### 5 8410-2 ####[facility]ORATORYCLIA [id number] [address] Nucleated RBC (Bld) [#/Vol] 10*3/uL Normal <0.01 [facility] Comment on above: Order Comment: Speci men Type: BLOOD SPECIMENOrdering Facility: [facility] Address: [address] [place] [address] Performed By: #### 5 8410-2 ####[facility]ORATORYCLIA [id number] [address] Platelet mean volume (Bld) [Entitic vol] 10.2 fL Normal 9.0-12.7 [facility] Comment on above: Order Comment: Speci men Type: BLOOD SPECIMENOrdering Facility: [facility] Address: [address] [place] [address] Performed By: #### 5 8410-2 ####[facility]ORATORYCLIA [id number] [address] Platelets (Bld) [#/Vol] 113 10*3/uL Low 150-400 [facility] Comment on above: Order Comment: Speci men Type: BLOOD SPECIMENOrdering Facility: [facility] Address: [address] [place] [address] Result Comment: No c lot detected. Performed By: #### 5 8410-2 ####[facility]ORATORYCLIA [id number] [address] [place] RBC (Bld) [#/Vol] 2.95 10*6/uL Low 3.90-5.20 [facility] Comment on above: Order Comment: Speci men Type: BLOOD SPECIMENOrdering Facility: [facility] Address: [address] [place] [address] Performed By: #### 5 8410-2 ####[facility]ORATORYCLIA [id number] [address] [place] WBC (Bld) [#/Vol] 9.46 10*3/uL Normal 3.70-11.00 [facility] Comment on above: Order Comment: Speci men Type: BLOOD SPECIMENOrdering Facility: [facility] Address: [address] [place] [address] Performed By: #### 5 8410-2 ####[facility]ORATORYCLIA [id number] [address] [place] Erythrocyte distribution width (RBC) [Ratio] 16.2 % High 11.5-15.0 [facility] Comment on above: Order Comment: Speci men Type: BLOOD SPECIMENOrdering Facility: [facility] Address: [address] [place] [address] Performed By: #### 5 8410-2 ####[facility]ORATORYCLIA [id number] [address] [place] Hematocrit (Bld) [Volume fraction] 28.5 % Low 36.0-46.0 [facility] Comment on above: Order Comment: Speci men Type: BLOOD SPECIMENOrdering Facility: [facility] Address: [address] [place] [address] Performed By: #### 5 8410-2 ####[facility]ORATORYCLIA [id number] [address] [place] Hemoglobin (Bld) [Mass/Vol] 8.9 g/dL Low 11.5-15.5 [facility] Comment on above: Order Comment: Speci men Type: BLOOD SPECIMENOrdering Facility: [facility] Address: [address] [place] [address] Performed By: #### 5 8410-2 ####[facility]ORATORYCLIA [id number] [address] MCH (RBC) [Entitic mass] 30.4 pg Normal 26.0-34.0 [facility] Comment on above: Order Comment: Speci men Type: BLOOD SPECIMENOrdering Facility: [facility] Address: [address] [place] [address] Performed By: #### 5 8410-2 ####[facility]ORATORYCLIA [id number] [address] MCHC (RBC) [Mass/Vol] 31.2 g/dL Normal 30.5-36.0 [facility] Comment on above: Order Comment: Speci men Type: BLOOD SPECIMENOrdering Facility: [facility] Address: [address] [place] [address] Performed By: #### 5 8410-2 ####[facility]ORATORYCLIA [id number] [address] MCV (RBC) [Entitic vol] 97.3 fL Normal 80.0-100.0 [facility] Comment on above: Order Comment: Speci men Type: BLOOD SPECIMENOrdering Facility: [facility] Address: [address] [place] [address] Performed By: #### 5 8410-2 ####[facility]ATORYCLIA [id number] [address] Nucleated RBC (Bld) [#/Vol] 10*3/uL Normal <0.01 [facility] Comment on above: Order Comment: Speci men Type: BLOOD SPECIMENOrdering Facility: [facility] Address: [address] [place] [address] Performed By: #### 5 8410-2 ####[facility] LABORATORYCLIA [id number] [place] [address] [place] Platelet mean volume (Bld) [Entitic vol] 10.6 fL Normal 9.0-12.7 [facility] Comment on above: Order Comment: Speci men Type: BLOOD SPECIMENOrdering Facility: [facility] Address: [address] [place] [address] Performed By: #### 5 8410-2 ####[facility]ORATORYCLIA [id number] [place] [address] [place] Platelets (Bld) [#/Vol] 113 10*3/uL Low 150-400 [facility] Comment on above: Order Comment: Speci men Type: BLOOD SPECIMENOrdering Facility: [facility] Address: [address] [place] [address] Result Comment: No c lot detected. Performed By: #### 5 8410-2 ####[facility]ORATORYCLIA [id number] [address] [place] RBC (Bld) [#/Vol] 2.93 10*6/uL Low 3.90-5.20 [facility] Comment on above: Order Comment: Speci men Type: BLOOD SPECIMENOrdering Facility: [facility] Address: [address] [place] [address] Performed By: #### 5 8410-2 ####[facility]ORATORYCLIA [id number] [address] [place] WBC (Bld) [#/Vol] 6.63 10*3/uL Normal 3.70-11.00 [facility] Comment on above: Order Comment: Speci men Type: BLOOD SPECIMENOrdering Facility: [facility] Address: [address] [place] [address] Performed By: #### 5 8410-2 ####[facility]ORATORYCLIA [id number] [address] Erythrocyte distribution width (RBC) [Ratio] 16.2 % High 11.5-15.0 [facility] Comment on above: Order Comment: Speci men Type: BLOOD SPECIMENOrdering Facility: [facility] Address: [address] [place] [address] Performed By: #### 5 8410-2 ####[facility]ORATORYCLIA [id number] [address] Hematocrit (Bld) [Volume fraction] 29.8 % Low 36.0-46.0 [facility] Comment on above: Order Comment: Speci men Type: BLOOD SPECIMENOrdering Facility: [facility] Address: [address] [place] [address] Performed By: #### 5 8410-2 ####[facility]ORATORYCLIA [id number] [address] Hemoglobin (Bld) [Mass/Vol] 9.4 g/dL Low 11.5-15.5 [facility] Comment on above: Order Comment: Speci men Type: BLOOD SPECIMENOrdering Facility: [facility] Address: [address] [place] [address] Performed By: #### 5 8410-2 ####[facility]ORATORYCLIA [id number] [address] MCH (RBC) [Entitic mass] 30.4 pg Normal 26.0-34.0 [facility] Comment on above: Order Comment: Speci men Type: BLOOD SPECIMENOrdering Facility: [facility] Address: [address] [place] [address] Performed By: #### 5 8410-2 ####[facility]ORATORYCLIA [id number] [address] MCHC (RBC) [Mass/Vol] 31.5 g/dL Normal 30.5-36.0 [facility] Comment on above: Order Comment: Speci men Type: BLOOD SPECIMENOrdering Facility: [facility] Address: [address] [place] [address] Performed By: #### 5 8410-2 ####[facility]ORATORYCLIA [id number] [address] MCV (RBC) [Entitic vol] 96.4 fL Normal 80.0-100.0 [facility] Comment on above: Order Comment: Speci men Type: BLOOD SPECIMENOrdering Facility: [facility] Address: [address] [place] [address] Performed By: #### 5 8410-2 ####[facility]ORATORYCLIA [id number] [address] [place] Nucleated RBC (Bld) [#/Vol] 10*3/uL Normal <0.01 [facility] Comment on above: Order Comment: Speci men Type: BLOOD SPECIMENOrdering Facility: [facility] Address: [address] [place] [address] Performed By: #### 5 8410-2 ####[facility]ORATORYCLIA [id number] [address] [place] Platelet mean volume (Bld) [Entitic vol] 9.9 fL Normal 9.0-12.7 [facility] Comment on above: Order Comment: Speci men Type: BLOOD SPECIMENOrdering Facility: [facility] Address: [address] [place] [address] Performed By: #### 5 8410-2 ####[facility]ORATORYCLIA [id number] [address] [place] Platelets (Bld) [#/Vol] 110 10*3/uL Low 150-400 [facility] Comment on above: Order Comment: Speci men Type: BLOOD SPECIMENOrdering Facility: [facility] Address: [address] [place] [address] Performed By: #### 5 8410-2 ####[facility]ORATORYCLIA [id number] [address] [place] RBC (Bld) [#/Vol] 3.09 10*6/uL Low 3.90-5.20 [facility] Comment on above: Order Comment: Speci men Type: BLOOD SPECIMENOrdering Facility: [facility] Address: [address] [place] [address] Performed By: #### 5 8410-2 ####[facility] LABORATORYCLIA [id number] [place] [address] [place] WBC (Bld) [#/Vol] 9.34 10*3/uL Normal 3.70-11.00 [facility] Comment on above: Order Comment: Speci men Type: BLOOD SPECIMENOrdering Facility: [facility] Address: [facility] [place] [address] Performed By: #### 5 8410-2 ####[facility] LABORATORYCLIA [id number] [place] [address] [facility] CONSULTon 07-23-2025 CONSULT HNO ID: [id number] Author: AMBREEN INFANTE PA Service: Geriatrics Author Type: Physician Sliver Machine Operator Type: Consults Filed: 07/23/2025 12:12 Note Text: GERIATRIC SURGERY SERVICE CONSULT NOTE PATIENT NAME: Kim Cabrera [id number] CONSULT TO GERIATRICS ([place]) Consult performed by: Ambreen Infante PA Consult ordered by: Karis Peraza MD Reason for consult: elderly patient s/p trauma impaired mobility HISTORY OF PRESENT ILLNESS: Kim Cabrera is a 85 year old female with a past medical history of CAD, HLD, atrial fibrillation, pacemaker, HFpEF, aortic stenosis, PE, COPA, hypothyroidism, anxiety, depression, impaired gait and mobility who was admitted on 07/22/2025 for SAH. Patient fell down 3 stairs going into her garage, states she was doing too much (talking on the phone while trying to put something in the recycle bin and foot caught on stair), hit her head, was taken to [place] [facility] for evaluation, imaging revealed subarachnoid hemorrhage, was transferred to [facility] as a trauma level 3. Noted patient arrived AANDO X3. Imaging revealed stable small acute subarachnoid hemorrhage in the right frontal and right occipital lobes, and small mildly increased left parietal occipital subgaleal hematoma, Hematoma in the superior left gluteal region and a small amount of contrast pooling suggestive of active bleeding, and mild compression deformity of T12 is age indeterminate. Patient was admitted under trauma to ICU. Neurosurgery was consulted for traumatic SAH, recommended non-surgical management. Determined to be HIGH RISK for delirium with DEAR assessment. Negative CAM-ICUs noted. Patient is resting in the hospital bed, opened eyes to voice, states she's doing okay this morning but feeling sleepy, blinds open, states she talked with her daughter earlier this morning and daughter is on her way. Pleasant and cooperative. Able to state name, age, , place, month, year, why she is at the hospital and hospital course. Does not appear to be hallucainting. Slept okay last night, states she is having trouble voiding, straight cath X1, no BM, NPO except for meds. Information was obtained from the patient. Also reviewed with Kenya (daughter) via phone call. Mentation- AANDO X3, denies history of cognitive impairment, dementia, or delirium, denies problems with memory or cognition. Daughter denies concern for memory or cognition at this time. Sensory impairment- Denies vision impairment, wears cheaters for reading. Endorses hearing impairment, wears hearing aids. Home- Lives at home with her friend Magdalena, one level home but stairs to get into the garage which is where she fell, independent in B-ADLs, assistance with most I-ADLs, still driving but driving much less, only to doctors appointments. Denies any tickets, accidents or getting lost while driving. Daughter endorses concern with stairs going into the garage, mobility has worsened since fall with hip fracture, otherwise house is perfect for her and her friend. Very seldom drives now. Mobility- Endorses 3-4 other falls this year, states she has been having a difficult time since she broke her hip in January/February this year while in [place]. Does not use a walker or cane when ambulating. Appetite- States appetite has been fair, eats about 2 meals and a snack daily, denies weight loss, dysphagia, and odynophagia, does not drink nutrition supplements. Mood- States she has been feeling more down since breaking her hip and needing rehab following and now with this injury. States she is used to being very independent and she feels like she is losing independence. Taking sertraline, feels like mood has been somewhat stable. Daughter states patient has been having trouble with slowing down due to injuries but feels like she is doing okay with depression medication. Sleep- Denies problems with sleep. Hospitalizations- Reviewed hospitalization for hip fracture, no other hospitalizations noted. Former smoker. Denies alcohol or illicit drug use. Subjective PCP: Todd Carbajal DO Past Medical History: 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 failure Diverticulosis of colon (without mention of hemorrhage) Diverticulosis Other and unspecified hyperlipidemia Status post atrioventricular ria ablation 09/28/2009 Unspecified hemorrhoids without mention of complication Hemorrhoids INTERNAL Past Surgical History: PAST SURGICAL HISTORY Procedure Laterality Date APPENDECTOMY ARTHROSCOPY KNEE DIAGNOSTIC W/WO SYNOVIAL BX SPX Arthroscopy, knee BALLN ANGIOPLASTY PERC,VISCERAL 03-22-11 RENAL ARTERY COLONOSCOPY FLX DX W/COLLJ SPEC WHEN PFRMD 12/18/2011 Colonoscopy STENT PLACEMENT 07/07 2 stents TONSILLECTOMY PRIMARY/SECONDARY Tonsillectomy TRANSCATH STENT INIT VESSEL,PERCUT 03-22-11 RE (more content not included)... Normal [facility] CONSULT HNO ID: [id number] Author: BOYD AVILA MD Service: Neurosurgery Author Type: Nurse Practitioner Type: Consults Filed: 07/31/2025 16:05 Note Text: Attestation signed by Boyd Avila MD at 07/31/2025 4:05 PM Attending Note I reviewed pertinent patient history and examination performed by PA/DRILL HAND, relevant laboratory results and imaging studies. Unless indicated below I agree with the plan of care discussed. Boyd Avila MD CONSULT: NEUROSURGERY SERVICE Patient Name: Kim Cabrera Date of : 1940 SERVICE DATE: 07/23/2025 SERVICE TIME: 12:05 AM REASON FOR CONSULT: fall w/ head injury, traumatic SAH REQUESTING PHYSICIAN: Benson Cullen DO PRIMARY CARE PHYSICIAN: Todd Carbajal DO Consultation requested by Dr. Cullen for an opinion regarding traumatic SAH. My final recommendations will be communicated back to the requesting physician by way of shared Medical record or letter to requesting physician via US mail. CHIEF COMPLAINT: head pain HISTORY OF PRESENT ILLNESS : Kim Cabrera is a 85 year old female listed below, significant for afib on Eliquis, presenting as a trauma transfer from [place] ED following a fall earlier today. Patient states she was walking outside to get her mail and was stepping down 3 steps when she lost her footing and fell forward hitting her face on the ground. She denies loss of consciousness. She reports she had a lot of bleeding from her head. Imaging at OSH revealed small volume traumatic SAH. She was given PCC for Eliquis reversal prior to transfer. Patient is alert, oriented and briskly follows commands. She is complaining of head pain. Denies nausea, vomiting, dizziness, numbness, tingling or weakness. She has low back pain at baseline which she states is no worse than usual. 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 failure Diverticulosis of colon (without mention of hemorrhage) Diverticulosis Other and unspecified hyperlipidemia Status post atrioventricular ria ablation 09/28/2009 Unspecified hemorrhoids without mention of complication Hemorrhoids INTERNAL PAST SURGICAL HISTORY Procedure Laterality Date APPENDECTOMY ARTHROSCOPY KNEE DIAGNOSTIC W/WO SYNOVIAL BX SPX Arthroscopy, knee BALLN ANGIOPLASTY PERC,VISCERAL 03-22-11 RENAL ARTERY COLONOSCOPY FLX DX W/COLLJ SPEC WHEN PFRMD 12/18/2011 Colonoscopy STENT PLACEMENT 07/07 2 stents TONSILLECTOMY PRIMARY/SECONDARY Tonsillectomy TRANSCATH STENT INIT VESSEL,PERCUT 03-22-11 RENAL ARTERY STENT FAMILY HISTORY Problem Relation Age of Onset Breast Cancer Mother Heart Father Colon Cancer Sister Stroke Mother ALLERGIES No Known Allergies Current Facility-Administere d Medications Medication Dose Route Frequency Provider Last Rate Last Admin NaCl 0.9% iv flush bag 20 mL INTRAVENOUS PRN Keny Guzman MD iv contrast (radiology procedure) INTRAVENOUS DIRECTED PRN Keny Guzman MD iv contrast (radiology procedure) INTRAVENOUS DIRECTED PRKeny Arriaga MD Current Outpatient Medications Medication Sig Dispense Refill levothyroxine (SYNTHROID) 100 mcg tablet Take 100 mcg by mouth daily before breakfast. lisinopril (ZESTRIL, PRINIVIL) 10 mg tablet Take 10 mg by mouth twice daily. metoprolol tartrate, short acting, (LOPRESSOR) 50 mg tablet Take 50 mg by mouth twice daily. furosemide (LASIX) 40 mg tablet Take 40 mg by mouth once daily. atorvastatin (LIPITOR) 40 mg tablet Take 40 mg by mouth once daily. aspirin, enteric coated (ASPIRIN, ENTERIC COATED) 81 mg EC tablet Take 81 mg by mouth once daily. warfarin 6 mg ORAL tablet Take 1 tablet by mouth once daily. 0 COMPLETE REVIEW OF SYSTEMS PAIN ASSESSMENT: see HPI ROS: Constitutional: No weight loss, malaise, recent fevers. + recent trauma Neuro: SEE HPI Denies numbness, tingling, weakness No confusion, AMS, LOC, stroke, seizures Cardiac: No chest pain, SOB, leg swelling, palpations, syncope Respiratory: No cough, SOB, wheezing HEENT: No headaches, dizziness, vision changes, hearing changes, tinnitus, changes in taste or smell GI: Denies nausea, vomiting, changes in bowel habits or function : Denies urinary changes, dysfunction, incontinence Endocrine: No cold or heat intolerance. No history of diabetes. MSK: Denies joint pain, gait changes, weakness Skin: No new rashes or lesions Psych: No significant psychiatric history Heme/Onc: Denies bleeding or bruising easily. + senior care anticoagulation (Eliquis). MEDS: Current Facility-Administere d Medications Medication Dose Route Frequency NaCl 0.9% iv flush bag 20 mL INTRAVENOUS PRN iv contrast (radiology procedure) INTRAVENOUS DIRECTE (more content not included)... Normal [facility] CT ABD/PEL W IVCONon 025 CT ABD/PEL W IVCON * * *Final Report* * * DATE OF EXAM: Jul 23 2025 12:16AM [facility] 0530 - CT ABD/PEL W IVCON / PROCEDURE REASON: Abdominal trauma, blunt * * * * Physician Interpretation * * * * EXAMINATION: CT ABDOMEN AND PELVIS WITH IV CONTRAST CLINICAL HISTORY: Fall, trauma, pain TECHNIQUE: CT of the abdomen and pelvis was performed using standard technique, scanning from just above the dome of the diaphragm to the symphysis pubis. MQ: CTAP_3 Contrast: IV: 100 ml of Omnipaque 350 : ml of CT Radiation dose: Integrated Dose-length product (DLP) for this visit = 926 mGy*cm. CT Dose Reduction Employed: Automated exposure control(AEC) and iterative recon COMPARISON: None. RESULT: Liver: No mass. Minimal surface nodularity. Biliary: No bile duct dilation. Cholelithiasis. Spleen: No mass. No splenomegaly. Pancreas: No mass or duct dilation. Adrenals: No mass. Kidneys: GI tract: No dilation or wall thickening. Lymph nodes: No abdominal or pelvic lymphadenopathy. Mesentery/Peritoneum : No ascites or mass. Retroperitoneum: No mass. Vasculature: - Abdominal aorta and iliac arteries: Atherosclerotic calcifications without aneurysm. - Celiac and SMA: Atherosclerotic calcifications at the origins. - Portal venous system (SMV, splenic vein, portal vein and branches): Patent. - Hepatic veins: Patent. - Other: Left renal artery stent. Pelvis: Urinary bladder is unremarkable. Uterus is present. Bones/Soft Tissues: Bilateral hip arthroplasties. Remote left inferior pubic ramus fracture. Degenerative changes in the thoracolumbar spine. Severe compression deformity L1 with vertebroplasty changes. Mild compression deformity T12 is age-indeterminate. Hematoma along the superior aspect of the left gluteus muscles muscles adjacent to the iliac bone measuring approximately 2.4 cm x 4 cm x 4.2 cm. There appears to be a small amount of contrast pooling suggestive of active bleeding (series 2, image 81 and series 3 image 84) Lower thorax: CT chest reported separately. Localizer images: No additional findings. IMPRESSION: 1. Hematoma in the superior left gluteal region measuring 2.4 cm x 4 cm x 4.2 cm. There appears to be a small amount of contrast pooling suggestive of active bleeding. 2. Mild compression deformity of T12 is age indeterminate. 3. Cholelithiasis. Communication: Findings were relayed to Dr. Mayes 07/23/2025 at 3:30 am via verbal communication. Assistant Professor Of Chemistry: GARRY Transcribe Date/Time: Jul 23 2025 2:28A Dictated by : MARCOS GRIGGS MD This examination was interpreted and the report reviewed and electronically signed by: MARCOS GRIGGS MD on Jul 23 2025 3:33AM EST [id number] CN Normal [facility] CT BRAIN WO IVCONon 07-23-20 CT BRAIN WO IVCON * * *Final Report* * * DATE OF EXAM: Jul 23 2025 12:10AM [facility] 0504 - CT BRAIN WO IVCON / PROCEDURE REASON: Subarachnoid hemorrhage (SAH) suspected * * * * Physician Interpretation * * * * EXAMINATION: CT BRAIN WO IVCON CLINICAL HISTORY: Subarachnoid hemorrhage suspected. TECHNIQUE: Serial axial images without IV contrast were obtained from the vertex to the foramen magnum. MQ: CTBWO_3 CT Radiation dose: Integrated Dose-Length Product (DLP) for this visit = 783 mGy*cm CT Dose Reduction Employed: Iterative recon COMPARISON: Outside head CT 07/22/2025, 6:18 PM. RESULT: Localizer images: Unremarkable. Post-operative change: None. Acute change: No evidence of an acute infarct or other acute parenchymal process. Hemorrhage: Stable small volume acute subarachnoid hemorrhage in the right occipital lobe and right inferior frontal lobe. ECASS hemorrhagic transformation score: Not Applicable Mass Lesion / Mass Effect: There is no evidence of an intracranial mass or extraaxial fluid collection. No significant mass effect. Chronic change: Scattered patchy foci of low attenuation are present within the supratentorial white matter, a nonspecific finding that most commonly represents mild small vessel disease. Parenchyma: There is mild generalized volume loss. The brain parenchyma is otherwise within normal limits for age. Ventricles: Ventricular enlargement concordant with the degree of parenchymal volume loss. Other: Bilateral lens replacements. Small left parieto-occipital subgaleal hematoma, mildly increased. Intact calvarium and skull base. Visualized paranasal sinuses and mastoid air cells are clear. IMPRESSION: Stable small acute subarachnoid hemorrhage in the right frontal and right occipital lobes. Small left parietal occipital subgaleal hematoma, mildly increased. No acute calvarial fracture. Assistant Professor Of Chemistry: PSCB Transcribe Date/Time: Jul 23 2025 2:03A Dictated by : SHEN SMITH MD This examination was interpreted and the report reviewed and electronically signed by: SHEN SMITH MD on Jul 23 2025 2:07AM EST [id number] CN Normal [facility] CT CHEST W IVCONon CT CHEST W IVCON * * *Final Report* * * DATE OF EXAM: Jul 23 2025 12:16AM [facility] 0539 - CT CHEST W IVCON / PROCEDURE REASON: Chest trauma, blunt * * * * Physician Interpretation * * * * EXAMINATION: CHEST CT WITH CONTRAST CLINICAL HISTORY: Blunt chest trauma, chest pain. Technique: Spiral CT acquisition of the chest from the thoracic inlet to the upper abdomen following IV contrast. MQ: CTCW_6 Contrast: 100 mL Omnipaque [address] Radiation dose: Integrated Dose-length product (DLP) for this visit = 926 mGy*cm CT Dose Reduction Employed: Automated exposure control(AEC) and iterative recon Comparison: None RESULT: Limitations: None. Lines, tubes, and devices: Left-sided cardiac device. Lung parenchyma and airways: Linear dependent lung opacities, most suggestive of atelectasis. No consolidation. No suspicious pulmonary nodule. The central airways are patent. Pleural space: No pleural effusion. No pleural thickening. Lower neck, lymph nodes, and mediastinum: The imaged thyroid gland is normal. No lymphadenopathy in the supraclavicular, axillary, mediastinal, or hilar regions. Heart, pericardium, and thoracic vessels: The thoracic aorta and main pulmonary artery are normal in caliber. The heart is enlarged and there was reflux of administered contrast into the hepatic veins, which may reflect cardiac function.. Atherosclerosis, including coronary artery atherosclerotic calcifications are noted, although the study is not optimized for coronary assessment. No pericardial effusion or thickening. Bones and soft tissues: Sternotomy wires. Vertebroplasty material at L1. Diffuse degenerative changes of the mid to lower thoracic spine. No acute or aggressive osseous process. Localizer images: No additional findings. IMPRESSION: 1. No CT evidence of acute abnormality. 2. Cardiac enlargement with reflux of administered contrast into the hepatic veins, which may reflect cardiac function. 3. Atherosclerosis. Assistant Professor Of Chemistry: PSCB Transcribe Date/Time: Jul 23 2025 2:21A Dictated by : GERDA GONZALES MD This examination was interpreted and the report reviewed and electronically signed by: GERDA GONZALES MD on Jul 23 2025 2:26AM EST [id number] CN Normal [facility] Calcium.ionized [Moles/Vol]o n 07-23-2025 Calcium.ionized (BldV) [Mass/Vol] 1.21 mmol/L Normal 1.08-1.30 [facility] Comment on above: Order Comment: Speci men Type: BLOOD SPECIMENOrdering Facility: [facility] Address: [address] [place] [address] Performed By: #### 1 995-0 ####[facility] LABORATORYCLIA [id number] [address] Calcium.ionized adjusted to pH 7.4 (Bld) [Moles/Vol] 1.15 mmol/L Normal 1.08-1.30 [facility] Comment on above: Order Comment: Speci men Type: BLOOD SPECIMENOrdering Facility: [facility] Address: [address] [place] [address] Performed By: #### 1 995-0 ####[facility] LABORATORYCLIA [id number] [address] [place] Magnesium SerPl-mCncon 07-23 Magnesium [Mass/Vol] 2.4 mg/dL High 1.7-2.3 [facility] Comment on above: Order Comment: Speci men Type: BLOOD SPECIMENOrdering Facility: [facility] Address: [address] [place] [address] Performed By: #### 2 777-1, 05558-3, 70153-6 ####[facility] LABORATORYCLIA [id number] [address] [place] NUTRITIONon 07-23-2025 NUTRITION HNO ID: [id number] Author: ARTHUR FENG RD Service: Nutrition Therapy Author Type: Registered Dietitian Type: Nutrition Filed: 07/23/2025 14:21 Note Text: SCREEN NOTE SERVICE DATE: 07/23/2025 SERVICE TIME: Start Time: 1131 Care Plan: Continue current diet Monitor for needs HPI: 85 yr old female admitted with a SAH s/p fall. Alert and oriented. Starting PO diet. Monitor and Evaluation: Meet greater than 75% of estimated needs, Monitor bowel function, Monitor fluid/electrolyte balance, Monitor labs, I/Os, vital signs, weight Intake History: Nutrition Intake Prior to Admission: Greater than 75% estimated energy needs Diet Orders (From admission, onward) Start Ordered 07/23/25 1300 DIET REGULAR START NOW 07/23/25 1255 Anthropometrics: Height: 172.7 cm (5' 8) Weight: 83.8 kg (184 lb 11.9 oz) Weight change percentage over time: no significant changes Lines, Drains, and Airways None MNT Billing: $ Routine Care : 1 unit Time Spent (mins): 6 SIGNATURE: Arthur Feng RD PATIENT NAME: Kim Cabrera DATE: July 23, 2025 TIME: 2:18 PM Normal [facility] Phosphate SerPl-mCncon 07-23 Phosphate [Mass/Vol] 3.3 mg/dL Normal 2.7-4.8 [facility] Comment on above: Order Comment: Speci men Type: BLOOD SPECIMENOrdering Facility: [facility] Address: [address] [place] [address] Performed By: #### 2 777-1, 34586-7, 62845-3 ####[facility] LABORATORYCLIA [id number] [place] [address] [place] STAPHYLOCOCCUS AUREUS AND MR SA SCREEN, PCR, NASALon 07-23-2025 S. aureus and MRSA panel OWEN+probe (Nose) Methicillin-SUSCEPTI BLE Staphylococcus aureus Detected Abnormal Not Detected [facility] Comment on above: Order Comment: Speci men Type: SWABOrdering Facility: [facility] Address: [address] [place] [address] Performed By: #### S APCR ####[facility] LABORATORYCLIA [id number] [place] [address] [place] TOXICOLOGY SCREEN, ROUTINE U RINEon 07-23-2025 Amphetamines Confirm (U) [Mass/Vol] Negative Normal Negative [facility] Comment on above: Order Comment: Speci men Type: URINE SPECIMENOrdering Facility: [facility] Address: [address] [place] [address] Result Comment: Cuto ff threshold at 1000 ng/mL. Performed By: #### U TOX2 ####[facility] LABORATORYCLIA [id number] [address] [place] BARBITURATES, URINE Negative Normal Negative [facility] Comment on above: Order Comment: Speci men Type: URINE SPECIMENOrdering Facility: [facility] Address: [address] [place] [address] Result Comment: Cuto ff threshold at 200 ng/mL. Performed By: #### U TOX2 ####[facility]ORATORYCLIA [id number] [place] [address] [place] BENZODIAZEPINES, URINE Negative Normal Negative [facility] Comment on above: Order Comment: Speci men Type: URINE SPECIMENOrdering Facility: [facility] Address: [address] [place] [address] Result Comment: Cuto ff threshold at 200 ng/mL. Performed By: #### U TOX2 ####[facility] LABORATORYCLIA [id number] [address] STATES OF [facility] Cannabinoids Screen Ql (U) Negative Normal Negative [facility] Comment on above: Order Comment: Speci men Type: URINE SPECIMENOrdering Facility: [facility] Address: [address] [place] [address] Result Comment: Cuto ff threshold at 50 ng/mL. Performed By: #### U TOX2 ####[facility] LABORATORYCLIA [id number] [place] [address] [place] Cocaine Ql (U) Negative Normal Negative [facility] Comment on above: Order Comment: Speci men Type: URINE SPECIMENOrdering Facility: [facility] Address: [address] [place] [address] Result Comment: Cuto ff threshold at 300 ng/mL. Performed By: #### U TOX2 ####[facility]ORATORYCLIA [id number] [place] [address] [place] Ethanol (U) [Mass/Vol] <11 Normal <11 [facility] Comment on above: Order Comment: Speci men Type: URINE SPECIMENOrdering Facility: [facility] Address: [address] [place] [address] Performed By: #### U TOX2 ####[facility]ORATORYCLIA [id number] [address] [place] fentaNYL Screen Ql (U) Negative Normal Negative [facility] Comment on above: Order Comment: Speci men Type: URINE SPECIMENOrdering Facility: [facility] Address: [address] [place] [address] Result Comment: Cuto ff threshold at 5 ng/mL. Performed By: #### U TOX2 ####[facility]ORATORYCLIA [id number] [address] [place] Opiates Screen Ql (U) Positive Abnormal Negative [facility] Comment on above: Order Comment: Speci men Type: URINE SPECIMENOrdering Facility: [facility] Address: [address] [place] [address] Result Comment: Cuto ff threshold at 300 ng/mL. Performed By: #### U TOX2 ####[facility] LABORATORYCLIA [id number] [address] oxyCODONE cutoff Screen (U) [Mass/Vol] Negative Normal Negative [facility] Comment on above: Order Comment: Speci men Type: URINE SPECIMENOrdering Facility: [facility] Address: [address] [place] [address] Result Comment: Cuto ff threshold at 100 ng/mL. Performed By: #### U TOX2 ####[facility] LABORATORYCLIA [id number] [address] Phencyclidine Ql (U) Negative Normal Negative [facility] Comment on above: Order Comment: Speci men Type: URINE SPECIMENOrdering Facility: [facility] Address: [address] [place] [address] Result Comment: Cuto ff threshold at 25 ng/mL. Performed By: #### U TOX2 ####[facility]ORATORYCLIA [id number] [address] [place] Brain/Head without Contrasto n 07-22-2025 Brain/Head without Contrast [facility] [address] [place] [address] Brain/Head without Contrast MR#: [id number] Acct: [id number] Name: KIM CABRERA Rep #: [id number] : 1940 F 85 From: Cy Buckley MD PCP: FIFI Lu Status: REG ER Study: Brain/Head without Contrast Date of Exam: 06/30 02/20 Exam# [id number] Ordering Dr: Cj Dumont MD PROCEDURE: BRAIN/HEAD WITHOUT CONTRAST 07/22/2025 REASON FOR EXAM: HEAD TRAUMA ON BLOOD TGHINNER TECHNIQUE: Procedure Code: CTBR Modality: CT Procedure: BRAIN/HEAD WITHOUT CONTRAST Coronal and Sagittal reconstruction series were provided. One or more dose reduction techniques were used (e.g., Automated exposure control, adjustment of the mA and/or kV according to patient size, use of iterative reconstruction technique. RADIATION DOSE SUMMARY: Not provided FINDINGS: The bony calvarium appears intact. The paranasal sinuses are clear. There is a mild degree of cerebral atrophy and there is left parietal soft tissue swelling. There is no intracranial edema. Small amount of posttraumatic subarachnoid blood in the anterior aspect of the sylvian fissure on the right. Small amount of probable post traumatic subarachnoid blood along the floor of the temporal occipital lobe posteriorly on coronal image 61 CT/Brain/Head without Contrast IMPRESSION: Posttraumatic subarachnoid hemorrhage. A reading will be called to the ER. [facility] CC: DRILL HAND-C Teagan Bosch; Dr. Cj Dumont MD Assistant Professor Of Chemistry: Signed Normal [facility] CBC panel Auto (Bld)on 07-22 Erythrocyte distribution width (RBC) [Ratio] 16.0 % High 11.5-15.0 [facility] Comment on above: Order Comment: Speci men Type: BLOOD SPECIMENOrdering Facility: [facility] Address: [address] [place] [address] Performed By: #### 5 8410-2 ####[facility] LABORATORYCLIA [id number] [place] [address] [place] Hematocrit (Bld) [Volume fraction] 30.6 % Low 36.0-46.0 [facility] Comment on above: Order Comment: Speci men Type: BLOOD SPECIMENOrdering Facility: [facility] Address: [address] [place] [address] Performed By: #### 5 8410-2 ####[facility] LABORATORYCLIA [id number] [address] OF [facility] Hemoglobin (Bld) [Mass/Vol] 9.6 g/dL Low 11.5-15.5 [facility] Comment on above: Order Comment: Speci men Type: BLOOD SPECIMENOrdering Facility: [facility] Address: [address] [place] [address] Performed By: #### 5 8410-2 ####[facility] LABORATORYCLIA [id number] [address] [place] [facility] MCH (RBC) [Entitic mass] 29.8 pg Normal 26.0-34.0 [facility] Comment on above: Order Comment: Speci men Type: BLOOD SPECIMENOrdering Facility: [facility] Address: [address] [place] [address] Performed By: #### 5 8410-2 ####[facility] LABORATORYCLIA [id number] [address] OF [facility] MCHC (RBC) [Mass/Vol] 31.4 g/dL Normal 30.5-36.0 [facility] Comment on above: Order Comment: Speci men Type: BLOOD SPECIMENOrdering Facility: [facility] Address: [address] [place] [address] Performed By: #### 5 8410-2 ####[facility] LABORATORYCLIA [id number] [address] MCV (RBC) [Entitic vol] 95.0 fL Normal 80.0-100.0 [facility] Comment on above: Order Comment: Speci men Type: BLOOD SPECIMENOrdering Facility: [facility] Address: [address] [place] [address] Performed By: #### 5 8410-2 ####[facility] LABORATORYCLIA [id number] [address] [place] Nucleated RBC (Bld) [#/Vol] 10*3/uL Normal <0.01 [facility] Comment on above: Order Comment: Speci men Type: BLOOD SPECIMENOrdering Facility: [facility] Address: [address] [place] [address] Performed By: #### 5 8410-2 ####[facility] LABORATORYCLIA [id number] [address] [place] Platelet mean volume (Bld) [Entitic vol] 10.2 fL Normal 9.0-12.7 [facility] Comment on above: Order Comment: Speci men Type: BLOOD SPECIMENOrdering Facility: [facility] Address: [address] [place] [address] Performed By: #### 5 8410-2 ####[facility] LABORATORYCLIA [id number] [address] [place] Platelets (Bld) [#/Vol] 122 10*3/uL Low 150-400 [facility] Comment on above: Order Comment: Speci men Type: BLOOD SPECIMENOrdering Facility: [facility] Address: [address] [place] [address] Performed By: #### 5 8410-2 ####[facility] LABORATORYCLIA [id number] [place] [address] [place] RBC (Bld) [#/Vol] 3.22 10*6/uL Low 3.90-5.20 [facility] Comment on above: Order Comment: Speci men Type: BLOOD SPECIMENOrdering Facility: [facility] Address: [address] [place] [address] Performed By: #### 5 8410-2 ####[facility] LABORATORYCLIA [id number] [address] [place] WBC (Bld) [#/Vol] 9.88 10*3/uL Normal 3.70-11.00 [facility] Comment on above: Order Comment: Speci men Type: BLOOD SPECIMENOrdering Facility: [facility] Address: [address] [id number] Performed By: #### 5 8410-2 ####[facility] LABORATORYCLIA [id number] [place] [address] [place] CONSULTon 07-22-2025 CONSULT HNO ID: [id number] Author: KARIS PERAZA MD Service: General Surgery Author Type: Resident Type: Consults Filed: 07/23/2025 12:47 Note Text: Attestation signed by Karis Peraza MD at 07/23/2025 12:47 PM Attending Note I evaluated the patient and personally participated in the oneal components. I agree with the resident's findings and plan as documented and have discussed the case and management of the patient's care with the resident. Signature: Karis Peraza MD Date: 07/23/2025 Time: 12:46 PM Surgical Intensive Care Unit Consult Note SERVICE DATE: 07/22/2025 SERVICE TIME: 9:51 PM REASON FOR CONSULT: intracranial bleed REQUESTING PHYSICIAN: trauma Subjective 85 year old female with PMH of CAD s/p CABG x2 (via redo sternotomy 2018), pAfib s/p Maze (on eliqu), emergent sternotomy for repair of left atrial laceration (2008), pacemaker, , pHTN, HTN diverticulosis, HLD, COPD, asthma, EDWAR, depression, hypothyroidism who presents at a T3 activation s/p fall down 3-4 steps on 07/22. Pt states she was going down the stairs to her car when she slipped, falling down 3-4 stairs. States she did hit her head but denies any LOC. Denies feeling dizzy prior to the fall. She is on eliquis which was reversed with PCC at an outside ED. Reports a mild headache and some pain over her left posterior scalp, but denies pain elsewhere. Denies any chest pain, shortness of breath. Denies any numbness or paresthesias, denies blurry vision. Motor and sensory intact in upper and lower extremities. She does report she has fallen several times due to balance issues which she attributes to her prior hip fracture. GCS at Scene was 15. HPI/CHIEF COMPLAINT: fall down steps BRIEF DESCRIPTION OF INJURIES: small amnt posttraumatic subarachnoid blood ant aspect of sylvian fissure on R AND along floor of temp/occipital lobe FUNCTIONAL STATUS: Independent 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 failure Diverticulosis of colon (without mention of hemorrhage) Diverticulosis Other and unspecified hyperlipidemia Status post atrioventricular ria ablation 09/28/2009 Unspecified hemorrhoids without mention of complication Hemorrhoids INTERNAL PAST SURGICAL HISTORY Procedure Laterality Date APPENDECTOMY ARTHROSCOPY KNEE DIAGNOSTIC W/WO SYNOVIAL BX SPX Arthroscopy, knee BALLN ANGIOPLASTY PERC,VISCERAL 03-22-11 RENAL ARTERY COLONOSCOPY FLX DX W/COLLJ SPEC WHEN PFRMD 12/18/2011 Colonoscopy STENT PLACEMENT 07/07 2 stents TONSILLECTOMY PRIMARY/SECONDARY Tonsillectomy TRANSCATH STENT INIT VESSEL,PERCUT 03-22-11 RENAL ARTERY STENT FAMILY HISTORY Problem Relation Age of Onset Breast Cancer Mother Heart Father Colon Cancer Sister Stroke Mother SOCIAL HISTORY[1] Prescriptions Prior to Admission[2] No current facility-administere d medications for this encounter. Allergies As of Date: 07/22/2025 (No Known Allergies) Fully Assessed 07/19/2015 COMPLETE REVIEW OF SYSTEMS: GENERAL: No weight loss, malaise or fevers. HEENT: Endorses headache, No changes in hearing or vision, no nose bleeds or other nasal problems. NECK: Negative for lumps, goiter, pain and significant neck swelling. RESPIRATORY: Negative for cough, hemoptysis, wheezing, COPD, dyspnea or shortness of breath. CARDIOVASCULAR: Negative for chest pain, leg swelling, hypertension, CHF or palpitations. GI: No nausea, vomiting, or diarrhea. MUSCULOSKELETAL: Negative for joint pain or swelling, back pain or muscle pain. SKIN: Negative for lesions, rash, and itching. PSYCH: Negative for sleep disturbance, mood disorder and recent psychosocial stressors. NEURO: No history of headaches, syncope, paralysis, seizures or tremors. Objective PHYSICAL EXAM: BP 107/73 Pulse 70 Temp (Src) 98 (Oral) Resp 10 Wt 210 lb (95.3kg) SpO2 97% O2 Therapy: Nasal Cannula, Liters (Numeric Only): 2 GENERAL: Alert. No distress. Resting comfortably. NEURO: AANDOx3. No focal neurologic deficits. Sensation grossly intact. HEENT: Normocephalic. Scalp hematoma to left occipital region. Area of ecchymosis and swelling over right eyelid. EOMI. LUNGS: Unlabored breathing on RA. Equal excursion bilaterally. CARDIAC: Regular rate. Good perfusion throughout. ABDOMEN: Soft, non-tender, non-distended. No rebound or guarding. EXTREMITIES: BLAIR. No deformities. SKIN: No obvious jaundice or pallor. DATA: Labs: No results for input(s): NA, K, CHLOR, CO2, BUN, CREAT, GLUC, ANION, CA, MG, P, ALB, AST, ALT, ALKPHOS, TBILI, DBILI, PHOSINTL, WBC, HB, HCT, PLT, LACT, INR, PH, PCO2, PO2, BE, HCO3 in the las (more content not included)... Normal [facility] Chest 1 View (Portable)on Chest 1 View (Portable) [facility] Imaging Services [address] [place], [place] [address] Chest 1 View (Portable) MR#: [id number] Acct: [id number] Name: KIM CABRERA Rep #: [id number] : 1940 F 85 From: Aubrey Lozano MD PCP: FIFI Lu Status: REG ER Study: Chest 1 View (Portable) Date of Exam: 07/22/25 Exam# [id number] Ordering Dr: Cj Dumont MD PROCEDURE: CHEST 1 VIEW (PORTABLE) 07/22/2025 REASON FOR EXAM: TRAUMA TECHNIQUE: Frontal view of the chest. COMPARISON: Chest x-ray 06/23/2024. FINDINGS: Hardware: Pacemaker overlying left chest wall with leads in appropriate position. Median sternotomy wires are visualized. Heart: Cardiomegaly. Lungs: Bibasilar atelectasis. Curvilinear density within right middle lung likely representing scarring. Bones: Degenerative changes of bilateral shoulder joints. Evaluation of ribs is severely limited. Other: RAD/Chest 1 View (Portable) IMPRESSION: Bibasilar atelectasis. Curvilinear scarring within right middle lung. If there is persistent or worsening respiratory status follow-up chest x-ray is recommended. Reading Location: [id number]. INTERNAL CC: FIFI Bosch; Dr. Cj Dumont MD Assistant Professor Of Chemistry: Signed Normal [facility] Comprehensive metabolic 2000 panelon 07-22-2025 Albumin [Mass/Vol] 4.0 g/dL Normal 3.9-4.9 [facility] Comment on above: Order Comment: Speci men Type: BLOOD SPECIMENOrdering Facility: [facility] Address: [address] [place] [address] Performed By: #### 2 4323-8, 3040-3 ####[facility] LABORATORYCLIA [id number] [place] [address] [place] ALP [Catalytic activity/Vol] 68 U/L Normal 34-123 [facility] Comment on above: Order Comment: Speci men Type: BLOOD SPECIMENOrdering Facility: [facility] Address: [address] [id number] Performed By: #### 2 4323-8, 3040-3 ####[facility] LABORATORYCLIA [id number] [place] [address] [place] ALT With P-5'-P [Catalytic activity/Vol] 9 U/L Normal 7-38 [facility] Comment on above: Order Comment: Speci men Type: BLOOD SPECIMENOrdering Facility: [facility] Address: [address] [place] [address] Performed By: #### 2 4323-8, 0-3 ####[facility] LABORATORYCLIA [id number] [place] [address] [place] Anion gap [Moles/Vol] 10 mmol/L Normal 8-15 [facility] Comment on above: Order Comment: Speci men Type: BLOOD SPECIMENOrdering Facility: [facility] Address: [address] [place] [address] Performed By: #### 2 4323-8, 3039-3 ####[facility] LABORATORYCLIA [id number] [place] [address] [place] AST With P-5'-P [Catalytic activity/Vol] 20 U/L Normal 13-35 [facility] Comment on above: Order Comment: Speci men Type: BLOOD SPECIMENOrdering Facility: [facility] Address: [address] [place] [address] Performed By: #### 2 4323-8, 3039-3 ####[facility] LABORATORYCLIA [id number] [place] [address] [place] Bilirubin [Mass/Vol] 0.7 mg/dL Normal 0.2-1.3 [facility] Comment on above: Order Comment: Speci men Type: BLOOD SPECIMENOrdering Facility: [facility] Address: [address] [place] [address] Performed By: #### 2 4323-8, 3039-3 ####[facility] LABORATORYCLIA [id number] [address] [place] Calcium [Mass/Vol] 8.9 mg/dL Normal 8.5-10.2 [facility] Comment on above: Order Comment: Speci men Type: BLOOD SPECIMENOrdering Facility: [facility] Address: [address] [place] [address] Performed By: #### 2 4323-8, 0-3 ####[facility] LABORATORYCLIA [id number] [place] [address] [place] Chloride [Moles/Vol] 104 mmol/L Normal 98-107 [facility] Comment on above: Order Comment: Speci men Type: BLOOD SPECIMENOrdering Facility: [facility] Address: [address] [place] [address] Performed By: #### 2 4323-8, 0-3 ####[facility] LABORATORYCLIA [id number] [address] [place] [facility] CO2 [Moles/Vol] 25 mmol/L Normal 22-30 [facility] Comment on above: Order Comment: Speci men Type: BLOOD SPECIMENOrdering Facility: [facility] Address: [address] [place] [address] Performed By: #### 2 4323-8, 3 ####[facility] HOSPITALIA [id number] [address] [place] [facility] Creatinine [Mass/Vol] 0.84 mg/dL Normal 0.58-0.96 [facility] Comment on above: Order Comment: Speci men Type: BLOOD SPECIMENOrdering Facility: [facility] Address: [address] [place] [address] Performed By: #### 2 4323-8, 3 ####[facility] HOSPITALIA [id number] [address] eGFRcr SerPlBld CKD-EPI 2020 69 mL/min/1.73m??? Normal >=60 [facility] Comment on above: Order Comment: Speci men Type: BLOOD SPECIMENOrdering Facility: [facility] Address: [address] [place] [address] Result Comment: Debbie mated Glomerular Filtration Rate (eGFR) is calculated using the 2020 CKD-EPI creatinine equation. This equation utilizes serum creatinine, sex, and age as parameters. The creatinine assay has traceable calibration to isotope dilution-mass spectrometry. Refer to KDIGO guidelines for clinical interpretation. In patients with unstable renal function, e.g. those with acute kidney injury, the eGFR may not accurately reflect actual GFR. Performed By: #### 2 4323-8, 3039-3 ####[facility] LABORATORYCLIA [id number] [place] [address] [place] Glucose [Mass/Vol] 122 mg/dL High 74-99 [facility] Comment on above: Order Comment: Speci men Type: BLOOD SPECIMENOrdering Facility: [facility] Address: [address] [place] [address] Result Comment: The [place] Diabetes Association (ADA) provides guidance for cutoff values for fasting glucose and random glucose. The ADA defines fasting as no caloric intake for at least 8 hours. Fasting plasma glucose results between 100 to 125 mg/dL indicate increased risk for diabetes (prediabetes). Fasting plasma glucose results greater than or equal to 126 mg/dL meet the criteria for diagnosis of diabetes. In the absence of unequivocal hyperglycemia, results should be confirmed by repeat testing. In a patient with classic symptoms of hyperglycemia or hyperglycemic crisis, random plasma glucose results greater than or equal to 200 mg/dL meet the criteria for diagnosis of diabetes. Reference: Standards of Medical Care in Diabetes 2016, [place] Diabetes Association. Diabetes Care. 2016.39(Suppl 1). Performed By: #### 2 4323-8, 0-3 ####[facility] LABORATORYCLIA [id number] [place] [address] [place] Potassium [Moles/Vol] 4.9 mmol/L Normal 3.7-5.1 [facility] Comment on above: Order Comment: Marvin venegas Type: BLOOD SPECIMENOrdering Facility: [facility] Address: [address] [place] [address] Performed By: #### 2 4323-8, 3039-3 ####[facility] LABORATORYCLIA [id number] [place] [id number] [place] Protein [Mass/Vol] 6.5 g/dL Normal 6.3-8.0 [facility] Comment on above: Order Comment: Marivn men Type: BLOOD SPECIMENOrdering Facility: [facility] Address: [address] [place] [address] Performed By: #### 2 4323-8, 0-3 ####[facility] LABORATORYCLIA [id number] [place] [address] [place] Sodium [Moles/Vol] 139 mmol/L Normal 136-144 [facility] Comment on above: Order Comment: Speci men Type: BLOOD SPECIMENOrdering Facility: [facility] Address: [address] [place], [place] [address] Performed By: #### 2 4323-8, 3040-3 ####[facility] LABORATORYCLIA [id number] [place] [address] [facility] Urea nitrogen [Mass/Vol] 20 mg/dL Normal 7-21 [facility] Comment on above: Order Comment: Speci men Type: BLOOD SPECIMENOrdering Facility: [facility] Address: [address] [place], [place] [address] Performed By: #### 2 4323-8, 3040-3 ####[facility] LABORATORYCLIA [id number] [place] [address] [facility] ECG COMPLETEon 07-22-2025 ECG COMPLETE Ventricular Rate : 70 BPM Atrial Rate : 70 BPM P-R Interval : 160 ms QRS Duration : 178 ms Q-T Interval : 476 ms QTC Calculation(Bazett) : 514 ms Calculated R [place] : 266 degrees Calculated T [place] : 75 degrees Atrial-sensed ventricular-paced rhythm ABNORMAL ECG NO PREVIOUS ECGS AVAILABLE Confirmed by MD NAVA CAROL ([id number]) on 07/22/2025 10:21:20 PM NAME : KIM CABRERA PID : [id number] : 1940 Gender : Female Race : ORD : [id number] Procedure Date : Jul 22 2025 22:19:20 Edit Date : Jul 22 2025 22:21:22 Diagnosis: Atrial-sensed ventricular-paced rhythm ABNORMAL ECG NO PREVIOUS ECGS AVAILABLE Confirmed by MD NAVA CAROL ([id number]) on 07/22/2025 10:21:20 PM Test Reason : Pre-OP Location : 4 : [facility] EM Overread By : MD NAVA CAROL Edited By : MD NAVA CAROL Referred By : , Acquired by : TRINA FANG [facility] ED NOTEon 07-22-2025 ED NOTE HNO ID: [id number] Author: FERDINAND PEREZ RN Service: Emergency Medicine Author Type: Registered Nurse Type: ED Notes Filed: 07/22/2025 23:59 Note Text: [facility] ED NOTE HNO ID: [id number] Author: FERDINAND PEREZ, MARGI Service: Emergency Medicine Author Type: Registered Nurse Type: ED Notes Filed: 07/22/2025 23:32 Note Text: Pt removed self from c-collar [facility] ED NOTE HNO ID: [id number] Author: TRINA FANG, MARGI Service: Emergency Medicine Author Type: Registered Nurse Type: ED Notes Filed: 07/22/2025 21:44 Note Text: Pt's Spo2 dropped to mid 80s while sleeping. Pt states she uses 1L O2 at night. Pt placed on 2L NC [facility] ED NOTE HNO ID: [id number] Author: DIONY MCCULLOUGH RN Service: ? Author Type: Registered Nurse Type: ED Notes Filed: 07/22/2025 21:23 Note Text: Bed: 05-ED Expected date: Expected time: Means of arrival: Comments: Husyein: [facility] ED PROV NOTEon 07-22-2025 ED PROV NOTE HNO ID: [id number] Author: FRANCISCO JAVIER NAVA MD Service: Emergency Medicine Author Type: Physician Type: ED Provider Notes Filed: 07/22/2025 22:22 Note Text: The patient lives independently at home. She was going down 3 steps and lost her balance landing on the floor striking her face. There was no loss of consciousness. In addition to facial discomfort, she was complaining of some discomfort with palpation over her left shoulder. The patient has a remote history of a pulmonary embolism as well as a history of cardiomyopathy, CHF, and atrial fibrillation for which she takes Eliquis. She presented to the [facility] emergency department where she had stable vital signs. The CT imaging of her brain and cerebral small right subarachnoid hemorrhage near the ventricles with no shift. The CT scan of her cervical spine did not demonstrate any traumatic injuries. In addition, she underwent x-rays of her chest, pelvis, and left shoulder which did not identify any fractures. Her CBC was stable. They discussed the case with Dr. Calix, our trauma surgeon on-call, he requested transfer the patient to the emergency department. They also administered reversal agents for her Eliquis. Upon arrival, the patient voices no other new complaints. She received morphine for analgesia. EMS stated that she remained stable and route. The patient has a blood pressure 107/73 with a pulse rate of 70 and a respiratory rate of 10. She is afebrile with a room air pulse ox of 96%. Her skin is pink, warm, and dry with ecchymosis over the lateral right periorbit with no palpable bony deformities or palpable subcutaneous air. Her pupils are equal reactive. Her oropharynx is clear. There is an S1-S2 with a slightly irregular rate and rhythm. There is no audible murmurs or bruits. Her lung bañuelos are clear and equal. The chest wall is nontender with no subcutaneous air or visible flail. She has a cervical collar in place, the trachea is midline. Her abdomen is nondistended with quiet bowel sounds. It is soft and nontender without rebound or guarding. Her pelvis is stable and nontender to palpation. She has no tenderness in the extremities other than the superolateral aspect of her left shoulder. Neurovascular status is intact throughout. The trauma service has been consulted as the patient will need to be admitted due to her subarachnoid hemorrhage with a history of anticoagulants. She is currently in stable condition. Critical care time is 20 minutes. FRANCISCO JAVIER NAVA 07/22/252138 The patient's EKG demonstrates an atrial sensed ventricular paced rhythm with no evidence of acute ischemic changes. The trauma service has been consulted, and we are still awaiting their recommendations. FRANCISCO JAVIER NAVA 07/22/252221 Normal [facility] ED PROV NOTE HNO ID: [id number] Author: FRANCISCO JAVIER NAVA MD Service: Emergency Medicine Author Type: Physician Type: ED Provider Notes Filed: 07/23/2025 18:13 Note Text: ED Provider Note Patient Name: Kim Cabrera : 1940 SERVICE DATE: 07/22/25 History Patient presents with: Fall: Transfer from [place]. Pt fell down 3-4 stairs w head injury. +Thinners, reversed. +Head bleed. Aox3. HPI The patient is an 85-year-old female who presents as a transfer from [place] after a fall down 3-4 stairs and a subsequent subarachnoid bleed discovered on CT imaging at [place]. The patient is on Eliquis. The patient states that she was going upstairs into her house when her foot caught on the step, she fell forward, and then went down 3 steps landing on the floor. The patient has a history of falls and unsteadiness with her gait. The patient denies any loss of consciousness or preceding symptoms such as chest pain, shortness of breath, diaphoresis, or abdominal pain. The patient arrives alert and oriented x 3. The patient is in moderate pain and is primarily complaining of pain in the back of her head as well as left shoulder. 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 failure Diverticulosis of colon (without mention of hemorrhage) Diverticulosis Other and unspecified hyperlipidemia Status post atrioventricular ria ablation 10/06 Unspecified hemorrhoids without mention of complication Hemorrhoids INTERNAL PAST SURGICAL HISTORY Procedure Laterality Date APPENDECTOMY ARTHROSCOPY KNEE DIAGNOSTIC W/WO SYNOVIAL BX SPX Arthroscopy, knee BALLN ANGIOPLASTY PERC,VISCERAL 03-22-11 RENAL ARTERY COLONOSCOPY FLX DX W/COLLJ SPEC WHEN PFRMD 12/18/2011 Colonoscopy STENT PLACEMENT 07/07 2 stents TONSILLECTOMY PRIMARY/SECONDARY Tonsillectomy TRANSCATH STENT INIT VESSEL,PERCUT 03-22-11 RENAL ARTERY STENT FAMILY HISTORY Problem Relation Age of Onset Breast Cancer Mother Heart Father Colon Cancer Sister Stroke Mother Social History[1] ALLERGIES No Known Allergies Review of Systems Constitutional: Negative for chills, diaphoresis, fatigue and fever. Respiratory: Negative for shortness of breath. Cardiovascular: Negative for chest pain. Gastrointestinal: Negative for abdominal pain, nausea and vomiting. Genitourinary: Negative for dysuria. Neurological: Positive for headaches. Negative for dizziness, syncope, facial asymmetry and weakness. Physical Exam Vitals [07/22/256] BP Pulse Temp Temp src Resp SpO2 Weight Height 134/64 70 36.7 ?C (98 ?F) Oral 16 95 % 95.3 kg (210 lb) -- Physical Exam Constitutional: Appearance: Normal appearance. She is normal weight. HENT: Head: Normocephalic. Comments: Ecchymosis and swelling of the right orbit. Right Ear: External ear normal. Left Ear: External ear normal. Nose: Nose normal. Mouth/Throat: Mouth: Mucous membranes are moist. Pharynx: Oropharynx is clear. Eyes: Extraocular Movements: Extraocular movements intact. Conjunctiva/sclera: Conjunctivae normal. Pupils: Pupils are equal, round, and reactive to light. Comments: Pupils 2 mm bilaterally equal and reactive. Cardiovascular: Rate and Rhythm: Normal rate and regular rhythm. Pulses: Normal pulses. Heart sounds: Normal heart sounds. Pulmonary: Effort: Pulmonary effort is normal. Breath sounds: Normal breath sounds. Abdominal: General: Abdomen is flat. There is no distension. Palpations: Abdomen is soft. Tenderness: There is no abdominal tenderness. Skin: General: Skin is warm. Neurological: General: No focal deficit present. Mental Status: She is alert and oriented to person, place, and time. Psychiatric: Mood and Affect: Mood normal. Behavior: Behavior normal. Thought Content: Thought content normal. Judgment: Judgment normal. Diagnostic Testing ED Labs Ordered and Reviewed - No data to display Procedures ED Course / Clinical Impression Clinical Impressions as of 07/23/25 0032 Subarachnoid hemorrhage following injury, no loss of consciousness, initial encounter (HCC) Contusion of face, initial encounter Contusion of left shoulder, initial encounter Fall, initial encounter MDM / Disposition / Plan MDM Kim Cabrera is an 85 year old female who presents as a transfer from [facility]. At the time of my evaluation, the patient is noted to be afebrile, demonstrating hemodynamically stable vital signs, and in no acute distress. The patient arrives to the [facility] emergency department as a transfer from [facility] after a fall on thinners revealed a subarachnoid bleed. The patient is neurologically intact on arrival and is alert and oriented x 3. The patient was given reversal agent for Eliquis while at [facility]. Her CT imaging and x-rays at [facility], with the excep (more content not included)... Normal [facility] Emergency Department Summary on 07-22-2025 Emergency Department Summary [facility] Medical Records Department [address] [place] [address] Emergency Department Summary 07/22/25 MR#: [id number] Acct: [id number] Name: KIM CABRERA Rep #: [id number] : 1940 85 From: Cj Dumont MD PCP: Teagan Hiro, D[facility]LL [facility]-C Status:REG ER Location: ED HPI HPI - Fall History of Present Illness Chief Complaint: Fall Informant: patient and family Occured/Mechanism Occurred: Today Mechanism/Context: Yes trip Fall down steps #: Last 3 straps: No garage. He believes she is on the floor. Usually ambulates: Without assistance Pain/Injury Pain Location: head, neck and upper extremity Quality of Pain: Sharp Current Severity: Moderate Maximum Severity: Moderate Associated Symptoms Associated Symptoms: Negative for Parasthesias, Weakness, Loss of function, Inability to ambulate, Loss of consciousness or Amnesia Narrative Narrative: 85-year-old female lives at home history of pulmonary emboli prior hip fracture, CHF, cardiomegaly on the blood thinner Eliquis. Was going down her steps into her garage tripped and fell within the last 3 steps hitting her head on the floor. Denies any LOC see. Plan scalp laceration, right jaw pain, neck pain she is in a c-collar. Mild left shoulder pain. Denies any LOC. [place] fine prior to the fall. 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 Contact dermatitis due to poison glenys Mild aortic stenosis COVID-19 ( 01/2022) SARS-CoV-2 positive Longstanding persistent atrial fibrillation Asthma-COPD overlap syndrome Hypothyroidism Nonrheumatic aortic (valve) stenosis Chronic diastolic (congestive) heart failure History of pulmonary embolism Non-ischemic cardiomyopathy Carotid bruit Bilateral renal artery stenosis Osteoarthritis COPD (chronic obstructive pulmonary disease) Essential (primary) hypertension 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 Complete heart block HLD (hyperlipidemia) Home Medications ???Medication ???Instructions ???Recorded ???Last Taken ???Type aspirin 81 mg tablet,delayed 81 mg PO QHS afib 09/08/14 9 History release albuterol sulfate 90 mcg/actuation 2 puff inhalation Q6H PRN Unknown Rx aerosol inhaler shortness of breath or wheezing #8.5 grams atorvastatin 40 mg tablet 40 mg PO QHS cholesterol #90 tabs 09/15/24 Unknown Rx metoprolol tartrate 25 mg tablet 12.5 mg (1/2 x 25 mg) PO BID for 1 12/09/23 Unknown Rx blood pressure #90 TABLETS potassium chloride 20 mEq 20 meq PO DAILY #90 tabs 01/27/25 Unknown Rx tablet,extended release apixaban 5 mg tablet (Eliquis) 5 mg PO BID F[facility]ing to [facility] Unknown Rx [facility] tabs magnesium oxide 400 mg PO QDAY 04/27/25 Unknown Hi story oxybutynin chloride 5 mg 5 mg PO QDAY 04/27/25 Unknown Hist ory tablet,extended release 24 hr furosemide 40 mg tablet (Lasix) 40 mg PO QAM #90 tabs 05/19/25 Unk nown Rx levothyroxine 125 mcg tablet 125 mcg PO QDAY 05/28/25 Unknown H istory (Synthroid) spironolactone 25 mg tablet 25 mg PO QDAY Pt never received RX 05/28/25 Unknown History sent on 04/20/25 sertraline 100 mg tablet 150 mg PO DAILY 06/19/25 Unknown H istory fluticasone furoate 200 1 inh inhalation QDAY #3 ea Unknown Rx mcg/actuation blister powder for inhalation (Arnuity Ellipta) nitrofurantoin 100 mg PO BID #10 caps 07/21/25 Un known Rx monohydrate/macrocry stals 100 mg capsule (Macrobid) Allergy/AdvReac Type Severity Reaction Status Date / Time No Known Allergies Allergy Verified 07/22/25 17:10 Family History Father Myocardial infarction Mother Cancer breast Sister Dementia Sister Colon cancer Surgical History History of carpal tunnel surgery of left wrist History of right hip replacement H/O coronary artery bypass surgery (08/28/19) History of left heart catheterization (06/20/19) Hx of atrioventricular node ablation (08/02/12) History of stent insertion of renal artery (03/22/11) History of radiofrequency ablation procedure for cardiac arrhythmia (10/15/09) History of open heart surgery (10/15/09) History of arthroscopic knee surgery History of carpa (more content not included)... Normal [facility] Ethanol SerPl-mCncon 025 Ethanol [Mass/Vol] mg/dL Normal <11 [facility] Comment on above: Order Comment: Speci men Type: BLOOD SPECIMENOrdering Facility: [facility] Address: [facility] [place] [address] Performed By: #### 5 643-2 ####[facility] LABORATORYCLIA [id number] [place] [address] [place] HISTORY PHYSICALon 5 HISTORY PHYSICAL HNO ID: [id number] Author: KENY GUZMAN MD Service: General Surgery Author Type: Resident Type: H&P Filed: 07/23/2025 01:04 Note Text: Attestation signed by August Calix MD at 07/29/2025 3:35 PM Attending Note I have seen and evaluated the patient. I have reviewed the imaging, lab results and examined the patient personally. I have created and discussed the care plan and agree with documentation above as provided by the Advanced Practice Provider/resident. Serial [facility] August Calix MD Department of General Surgery Section of Trauma, Surgery Critical Care, and Acute Care Surgery TRAUMA SURGERY HANDP [facility] ARRIVAL DATE: 07/22/2025 ARRIVAL TIME: 9:30 pm CATEGORY: Level 3 INJURY DATE: 07/22/2025 Subjective 85 year old female with PMH of CAD s/p CABG x2 (via redo sternotomy 2018), pAfib s/p Maze (on eliquis), emergent sternotomy for repair of left atrial laceration (2008), pacemaker, , pHTN, HTN, diverticulosis, HLD, COPD, asthma, EDWAR, depression, hypothyroidism who presents as a T3 trauma activation after a fall down 4 steps on 07/22. Pt states she was going down the stairs to her car when she slipped, falling down 3-4 stairs. States she did hit her head but denies any LOC. Denies feeling dizzy prior to the fall. She is on eliquis which was reversed with PCC at an outside ED. Reports a mild headache and some pain over her left posterior scalp, but denies pain elsewhere. Denies any chest pain, shortness of breath. Denies any numbness or paresthesias, denies blurry vision. Motor and sensory intact in upper and lower extremities. She does report she has fallen several times due to balance issues which she attributes to her prior hip fracture. GCS at Scene was 15. HPI/CHIEF COMPLAINT: Fall down 3-4 steps BRIEF DESCRIPTION OF INJURIES: small amnt posttraumatic subarachnoid blood ant aspect of sylvian fissure on R AND along floor of temp/occipital lobe LAST FLUIDS/MEAL: AM CODE STATUS: Discussed with patient ALLERGIES No Known Allergies Prescriptions Prior to Admission[1] DATE OF LAST TETANUS: unknown Immunization History Administered Date(s) Administered COVID-19 original vaccine, full dose, monovalent (MODERNA) 12/09/2020 01/05/2021 09/05/2021 04/22/2022 COVID-19 vaccine, age 12+ yr, bivalent ([employer]) 09/19/2022 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 failure Diverticulosis of colon (without mention of hemorrhage) Diverticulosis Other and unspecified hyperlipidemia Status post atrioventricular ria ablation 09/28/2009 Unspecified hemorrhoids without mention of complication Hemorrhoids INTERNAL PAST SURGICAL HISTORY Procedure Laterality Date APPENDECTOMY ARTHROSCOPY KNEE DIAGNOSTIC W/WO SYNOVIAL BX SPX Arthroscopy, knee BALLN ANGIOPLASTY PERC,VISCERAL 03-22-11 RENAL ARTERY COLONOSCOPY FLX DX W/COLLJ SPEC WHEN PFRMD 12/18/2011 Colonoscopy STENT PLACEMENT 07/07 2 stents TONSILLECTOMY PRIMARY/SECONDARY Tonsillectomy TRANSCATH STENT INIT VESSEL,PERCUT 03-22-11 RENAL ARTERY STENT SOCIAL HISTORY[2] FAMILY HISTORY Problem Relation Age of Onset Breast Cancer Mother Heart Father Colon Cancer Sister Stroke Mother ROS: Is the patient having any pain? Yes headache Constitutional: Negative Eye/Ear/Nose: Negative Respiratory: Negative Cardiovascular: Negative GI/Liver/Biliary: Negative Genitourinary: Negative Psychiatric: Negative Neurologic: Negative Musculoskeletal: Negative Integument: Negative Endocrine: Negative Heme/Lymph: Negative Objective PRIMARY SURVEY AIRWAY: Patent BREATHING: Breath sounds equal CIRCULATION: PT/DP 2+, Radials 2+, Femoral 2+ DISABILITY: Eye: 4=Spontaneous Verbal: 5=Oriented and Converses Motor: 6=Obeys Commands Total GCS: 15=4 Resp Rate: 10 to 29=4 Syst BP: > than 89=4 REVISED TRAUMA SCORE: 12 EXPOSE / ENVIRONMENT: Warm Blankets PROCEDURES: n/a SECONDARY SURVEY VITALS: 07/22/25 2126 07/22/25 2130 07/22/25 2143 BP: 134/64 107/73 Pulse: 70 70 Resp: 16 (!) 10 Temp: 36.7 ?C (98 ?F) TempSrc: Oral SpO2: 95% 96% 97% Weight: 95.3 kg (210 lb) NEURO: Alert AND Oriented x 3, GCS 15, Cranial Nerves II-XII grossly Intact, Moves All Extremities, Strength Symmetrical, No Sensory Deficits. HEENT: Head: scalp hematoma to left occipital region, no bony step-offs, midface stable to palpation. Eyes: PERRL, conjunctiva/corneas without lesions, EOMI. Ears: Canals without blood or CSF drainage, TMs clear, external ears without lacerations. Nose: Septum midline, no crepitus with motion. Throat: Oral mucosa without lacerations, teeth in place, tongue without lacerations. NECK: No midline pain with pal (more content not included)... Normal [facility] Lipase SerPl-cCncon 07-22-20 Lipase [Catalytic activity/Vol] 31 U/L Normal 16-61 [facility] Comment on above: Order Comment: Speci men Type: BLOOD SPECIMENOrdering Facility: [facility] Address: [address] [place] [address] Performed By: #### 2 4323-8, 3040-3 ####[facility] LABORATORYCLIA [id number] [place] [address] [place] PT panel Coag (PPP)on 2024 INR Coag (PPP) [Relative time] 1.1 {INR} Normal 0.9-1.3 [facility] Comment on above: Order Comment: Marvin venegas Type: BLOOD SPECIMENOrdering Facility: [facility] Address: [address] [id number] Result Comment: Heidy min K Antagonist (VKA) Therapeutic Range: INR 2 to 3 (Target INR of 2.5) Note: For patients treated with VKA drugs, such as warfarin, the [employer] 2012 Guideline recommends a therapeutic INR range of 2 to 3 (target INR of 2.5). This recommendation includes high-risk patients with antiphospholipid syndrome with previous arterial or venous thromboembolism, current-generation mechanical or bioprosthetic aortic heart valve replacement. Note: Patients with mechanical aortic valve replacement and additional risk factors for thromboembolic events (atrial fibrillation, previous thromboembolism, LV dysfunction, hypercoagulable conditions) or an older generation mechanical AVR (i.e., ball in-Cage) or any mechanical MVR should have a INR therapeutic range of 2.5 to 3.5 (target INR of 3). Edgardo GH, et al. Chest 2012, 141:7S-47S Yunier RA, et al. [facility] 2017, 70: 252-289 Performed By: #### 3 4528-0, 53399-6 ####[facility] LABORATORYCLIA [id number] [place] [address] [place] PT Coag (PPP) [Time] 11.7 s Normal 9.7-13.0 [facility] Comment on above: Order Comment: Marvin venegas Type: BLOOD SPECIMENOrdering Facility: [facility] Address: [address] [place] [address] Performed By: #### 3 4528-0, 47633-8 ####[facility] LABORATORYCLIA [id number] [place] [address] [place] Pelvis 1 or 2 Viewson 2024 Pelvis 1 or 2 Views [facility] [address] [place], [place] [address] Pelvis 1 or 2 Views MR#: [id number] Acct: [id number] Name: KIM CABRERA Rep #: [id number] : 1940 F 85 From: Ke Rebolledo MD PCP: [place] [facility] Status: REG ER Study: Pelvis 1 or 2 Views Date of Exam: 07/22/25 Exam# [id number] Ordering Dr: Cj Dumont MD PROCEDURE: PELVIS 1 OR 2 VIEWS 07/22/2025 REASON FOR EXAM: TRAUMA TECHNIQUE: Procedure Code: RADPEL Modality: DX Procedure: PELVIS 1 OR 2 VIEWS FINDINGS: Status post bilateral hip arthroplasties (partially visualized). No evidence of acute complication. Degenerative changes of the partially visualized spine. RAD/Pelvis 1 or 2 Views IMPRESSION: Intact partially visualized bilateral hip arthroplasties. Reading Location: [id number] CC: [facility]-C Teagan Bosch; Dr. Cj Dumont MD Assistant Professor Of Chemistry: Signed Normal [facility] Shoulder min 2 Viewson 07-22 Shoulder min 2 Views [facility] [address] [place], [place] [address] Shoulder min 2 Views MR#: [id number] Acct: [id number] Name: KIM CABRERA Rep #: [id number] : 1940 F 85 From: Todd Ledezma MD PCP: [place] LuC Status: REG ER Study: Shoulder min 2 Views Date of Exam: 07/22/25 Exam# [id number] Ordering Dr: Cj Dumont MD EXAM: XR Left Shoulder Complete, 2 or More Views CLINICAL INDICATION: FALL TECHNIQUE: Two or more views of the left shoulder. COMPARISON: No relevant prior studies available. FINDINGS: BONES/JOINTS: Mild degenerative changes of the acromioclavicular and glenohumeral joints. No acute fracture. No dislocation. SOFT TISSUES: Unremarkable. RAD/Shoulder min 2 Views IMPRESSION: Degenerative changes as above. Reading Location: [id number] CC: FIFI Bosch; Dr. Cj Dumont MD Assistant Professor Of Chemistry: Signed Normal [facility] Sinus/Facial Boneon 07-22-20 Sinus/Facial Bone [facility] [address], [place] [id number] Sinus/Facial Bone MR#: [id number] Acct: [id number] Name: KIM CABRERA Rep #: [id number] : 1940 F 85 From: Cy Buckley MD PCP: FIFI Lu Status: REG ER Study: Sinus/Facial Bone Date of Exam: 07/22/25 Exam# [id number] Ordering Dr: Cj Dumont MD PROCEDURE: SINUS/FACIAL BONE 07/22/2025 REASON FOR EXAM: R-JAW PAIN POST FALL TECHNIQUE: Procedure Code: CTSI Modality: CT Procedure: SINUS/FACIAL BONE Coronal and Sagittal reconstruction series were provided. One or more dose reduction techniques were used (e.g., Automated exposure control, adjustment of the mA and/or kV according to patient size, use of iterative reconstruction technique). RADIATION DOSE SUMMARY: CTDlvol: 94 mGy DLP: 2002 mGycm FINDINGS: Soft tissue windows demonstrate symmetric appearance of the orbits. The imaged portions of the brain are unremarkable. Normal mandibular body, mandibular rami and mandibular condyles. Normal zygomatic arches. Normal nasal bones. Medial and lateral orbital pickard maintained. Mastoids and middle ear cavities intact. On coronal images, normal nasal bones and orbital floor. CT/Sinus/Facial Bone IMPRESSION: Negative for maxillofacial fracture. The sinuses are clear. Reading [facility] CC: FIFI Bosch; Dr. Cj Dumont MD Assistant Professor Of Chemistry: Signed Normal [facility] Spine Cervical without Contr ason 07-22-2025 Spine Cervical without Contras [facility] [address] [place], [place] [id number] Spine Cervical without Contras MR#: [id number] Acct: [id number] Name: KIM CABRERA Rep #: [id number] : 1940 F 85 From: Cy Buckley MD PCP: FIFI Lu Status: REG ER Study: Spine Cervical without Contras Date of Exam: 0 07/22/25 Exam# [id number] Ordering Dr: Cj Dumont MD PROCEDURE: SPINE CERVICAL WITHOUT CONTRAS 07/22/2025 REASON FOR EXAM: TRAUMA TECHNIQUE: Procedure Code: CTSPC Modality: CT Procedure: SPINE CERVICAL WITHOUT CONTRAS Coronal and Sagittal reconstruction series were provided. One or more dose reduction techniques were used (e.g., Automated exposure control, adjustment of the mA and/or kV according to patient size, use of iterative reconstruction technique. RADIATION DOSE SUMMARY: Not provided FINDINGS: Normal cervical vertebral body height without compression deformity. Facet arthrosis without facet fracture. Degenerative changes are present at C1-C2. Odontoid process, C1 vertebra and C2 vertebra appear intact. No visible soft tissue mass. Prominent vascular calcification. Axial images demonstrate no fractures of the facets, pedicles or lamina. Multilevel facet hypertrophy noted. CT/Spine Cervical without Contras IMPRESSION: Degenerative changes. No fracture. Reading Location[facility] CC: FIFI Bosch; Dr. Cj Dumont MD Assistant Professor Of Chemistry: Signed Normal [facility] TYPE + SCREENon 07-22-2025 ABO O Normal [facility] Comment on above: Order Comment: Speci men Type: BLOOD SPECIMENOrdering Facility: [facility] Address: [address] [place] [address] Performed By: #### T SCR ####[facility] BLOOD BANKCLIA [id number] [place] [address] [place] Rh Nom (Bld) Positive Normal [facility] Comment on above: Order Comment: Speci men Type: BLOOD SPECIMENOrdering Facility: [facility] Address: [address] [place] [address] Performed By: #### T SCR ####[facility] BLOOD BANKCLIA [id number] [address] [id number] [place] TYPE AND SCREEN EXPIRATION 07/25/2025 23:59 Normal [facility] Comment on above: Order Comment: Speci men Type: BLOOD SPECIMENOrdering Facility: [facility] Address: [address] [place] [address] Performed By: #### T SCR ####[facility] BLOOD BANKCLIA [id number] [address] [place] [id number] [facility] [place] aPTT PPPon 07-22-2025 aPTT Coag (PPP) [Time] 26.2 s Normal 23.0-32.4 [facility] Comment on above: Order Comment: Speci men Type: BLOOD SPECIMENOrdering Facility: [facility] Address: [address] [place] [address] Performed By: #### 3 4528-0, 30773-2 ####[facility] LABORATORYCLIA [id number] OF [facility] Anion gap in Serum or Plasma Ordered By: Elijah West on 07-20-2025 Anion gap [Moles/Vol] 12 mmol/L - [facility] BUN/creatinine ratioOrdered By: Elijah West on 07-20-2025 Urea nitrogen/Creatinine [Mass ratio] 16.4 mg/mg - [facility] Basic Metabolic Profile (BMP )on 07-20-2025 BUN/CRE 16.4 RATIO Normal - [facility] Comment on above: Order Comment: For P PM generator change Performed By: #### L 400.0001, L300.3900, L100.0500, L500.2500 ####[facility] [address] [place], [address] Calcium [Mass/Vol] 9.7 mg/dL Normal 7.6-11.0 [facility] Comment on above: Order Comment: For P PM generator change Performed By: #### L 400.0001, L300.3900, L100.0500, L500.2500 ####[facility] [address] [place], [address] Chloride [Moles/Vol] 102 mmol/L Normal 98-108 [facility] Comment on above: Order Comment: For P PM generator change Performed By: #### L 400.0001, L300.3900, L100.0500, L500.2500 ####[facility] [address] [place], [address] CO2 [Moles/Vol] 22.6 mmol/L Normal 21.0-32.0 [facility] Comment on above: Order Comment: For P PM generator change Performed By: #### L 400.0001, L300.3900, L100.0500, L500.2500 ####[facility] [address] [facility] [address] Creatinine [Mass/Vol] 0.94 mg/dL Normal 0.70-1.20 [facility] Comment on above: Order Comment: For P PM generator change Performed By: #### L 400.0001, L300.3900, L100.0500, L500.2500 ####[facility] [address] [place], [address] GAP 12 Normal 5-15 [facility] Comment on above: Order Comment: For P PM generator change Performed By: #### L 400.0001, L300.3900, L100.0500, L500.2500 ####[facility] [address] [place], [address] GFR/1.73 sq M.predicted among non-blacks MDRD (S/P/Bld) [Vol rate/Area] 60 mL/min/{1.73_m2} Normal >60 [facility] Comment on above: Order Comment: For P PM generator change Result Comment: mL/m in/1.73m2 CKD-EPI Creatinine Equation (2020) Performed By: #### L 400.0001, L300.3900, L100.0500, L500.2500 ####[facility] [address] [place], [address] Glucose [Mass/Vol] 80 mg/dL Normal 70-99 [facility] Comment on above: Order Comment: For P PM generator change Performed By: #### L 400.0001, L300.3900, L100.0500, L500.2500 ####[facility] [address] [place], [address] Potassium [Moles/Vol] 4.7 mmol/L Normal 3.3-5.1 [facility] Comment on above: Order Comment: For P PM generator change Performed By: #### L 400.0001, L300.3900, L100.0500, L500.2500 ####[facility] [address] [place], [address] Sodium [Moles/Vol] 137 mmol/L Normal 133-145 [facility] Comment on above: Order Comment: For P PM generator change Performed By: #### L 400.0001, L300.3900, L100.0500, L500.2500 ####[facility] [address] [place], [address] Urea nitrogen [Mass/Vol] 16 mg/dL Normal 4-19 [facility] Comment on above: Order Comment: For P PM generator change Performed By: #### L 400.0001, L300.3900, L100.0500, L500.2500 ####[facility] [address] [place], [address] Bilirubin Test strip Ql (U)O rdered By: Elijah West on 07-20-2025 Bilirubin Ql (U) Negative Negative [facility] CBC-Complete Blood Cnt No Di ffon 07-20-2025 Erythrocyte distribution width (RBC) [Ratio] 16.4 % High 11.6-14.6 [facility] Comment on above: Order Comment: Comme nts: For PPM generator change Performed By: #### L 400.0001, L300.3900, L100.0500, L500.2500 ####[facility] [address] [place], [address] Hematocrit (Bld) [Volume fraction] 36.8 % Low 37-47 [facility] Comment on above: Order Comment: Comme nts: For PPM generator change Performed By: #### L 400.0001, L300.3900, L100.0500, L500.2500 ####[facility] [address] [place], [address] Hemoglobin (Bld) [Mass/Vol] 11.6 g/dL Low 12.0-15.0 [facility] Comment on above: Order Comment: Comme nts: For PPM generator change Performed By: #### L 400.0001, L300.3900, L100.0500, L500.2500 ####[facility] [address] [place], [place], [address] MCH (RBC) [Entitic mass] 30.1 pg Normal 27.0-32.0 [facility] Comment on above: Order Comment: Comme nts: For PPM generator change Performed By: #### L 400.0001, L300.3900, L100.0500, L500.2500 ####[facility] [address] [place], [address] MCHC (RBC) [Mass/Vol] 31.5 g/dL Low 32-36 [facility] Comment on above: Order Comment: Comme nts: For PPM generator change Performed By: #### L 400.0001, L300.3900, L100.0500, L500.2500 ####[facility] [address] [place], [address] MCV (RBC) [Entitic vol] 95.6 fL Normal 81-99 [facility] Comment on above: Order Comment: Comme nts: For PPM generator change Performed By: #### L 400.0001, L300.3900, L100.0500, L500.2500 ####[facility] [address] [place], [address] Platelet mean volume (Bld) [Entitic vol] 10.5 fL Normal 6.2-12.0 [facility] Comment on above: Order Comment: Comme nts: For PPM generator change Performed By: #### L 400.0001, L300.3900, L100.0500, L500.2500 ####[facility] [address] [place], [address] Platelets (Bld) [#/Vol] 149 10*3/uL Low 150-450 [facility] Comment on above: Order Comment: Comme nts: For PPM generator change Performed By: #### L 400.0001, L300.3900, L100.0500, L500.2500 ####[facility] [address] [place], [address] RBC (Bld) [#/Vol] 3.85 10*6/uL Low 4.2-5.4 [facility] Comment on above: Order Comment: Comme nts: For PPM generator change Performed By: #### L 400.0001, L300.3900, L100.0500, L500.2500 ####[facility] [address] [place], [address] RDW SD 57.5 fl High 35.1-43.9 [facility] Comment on above: Order Comment: Comme nts: For PPM generator change Performed By: #### L 400.0001, L300.3900, L100.0500, L500.2500 ####[facility] [address] [place], [address] WBC (Bld) [#/Vol] 7.2 10*3/uL Normal 4.4-11.0 [facility] Comment on above: Order Comment: Comme nts: For PPM generator change Performed By: #### L 400.0001, L300.3900, L100.0500, L500.2500 ####[facility] [address] [place], [address] Carbon dioxide, total [Moles /volume] in Central venous bloodOrdered By: Elijah West on 07-20-2025 CO2 [Moles/Vol] 22.6 mmol/L 21.0-32.0 [facility] Cardiology Visit Reporton Cardiology Visit Report [facility] [address] [place] [address] OFFICE VISIT Date of Service: 07/20/25 MR#: [id number] Acct: [id number] Name: KIM CABRERA Rep #: [id number] : 1940 Provider: FIFI khan Age/Sex: 85/F [place] [facility] [place] Status: Signed HPI HPI History of Present Illness Surgical H P: Yes Details: KIM CABRERA, is an 85 F who presents to the office today for a cardiovascular follow-up. She has a history of right coronary artery stenting and balloon angioplasty to ostial RCA and proximal RCA on 07/24/2009. She also underwent emergent sternotomy for left atrial laceration noted after pulmonary vein isolation procedure on 10/14/2009. She then underwent cardiac catheterization on 06/20/2019 that demonstrated distal left main 50% lesion disease in the left anterior descending artery 40 to 50% in-stent stenosis of the right coronary artery. She was sent to [facility] to evaluate for further therapy. It was determined after much discussion that she would benefit from a redo sternotomy. She underwent coronary artery bypass grafting with a left internal mammary artery to the left anterior descending artery, and radial T graft of the internal mammary artery to the first obtuse marginal branch on 08/28/2019. She also had ligation of the left atrial appendage. She did have an echocardiogram performed in August 2019 which demonstrated ejection fraction of 55 to 60%, dilated RV, mild aortic valve stenosis and severe tricuspid regurgitation. Her right ventricular systolic pressure was estimated to be 37 mmHg. She does have a previous smoking history. She also has a permanent pacemaker implantation after her AV junctional ablation was completed. She has a history of bilateral renal artery stenosis with stenting, chronic atrial fibrillation, hypertension, and hyperlipidemia. She states that while down in [place] over the winter, she fell and broke her left hip. While she was in the hospital, they did an echocardiogram, and PRIMO. She states that she was told her tricuspid and aortic valve were severe. Her echocardiogram on 06/22/2025 demonstrated an ejection fraction 55%, severely dilated right ventricle, moderate tricuspid valve insufficiency and mild to moderate aortic valve stenosis. From a cardiac standpoint, the patient is doing well. She does use a cane and wheel chair to help with ambulation. She denies any palpitations, chest pain, pressure or heaviness. She does acknowledge SOB with exertion and at rest. She denies Orthopnea, and PND. She does wear 1L of oxygen at night. She does have bruising on bilateral arms. She does not have bleeding issues; no blood in urine, stool, or nosebleeds. She does acknowledge fatigue. She denies myalgias, or claudication. She does not have edema, or sudden weight gain. She does acknowledge occasional lightheadedness with quick positional changes. She denies dizziness, syncopal or near syncopal episodes, and headaches. Intake Vital Signs 06/19/25 07:55 07/20/25 07:13 07/20/25 11:12 07/20/25 11:19 Height 5 ft 8 in 5 ft 8 in 5 ft 8 in 5 ft 8 in Weight: 181 lb BMI 27.5 BP 129/78 H Blood Pressure Location Lt brachial Position Sitting Respiration 20 H Pulse 69 Pulse Source Monitor Pulse Oximetry (%) 95 Intake Visit Reasons: 1 M FU/PRICILLA @ 11 Allergies No Known Allergies Allergy (Verified 07/20/25 11:27) Medications ???Medication ???Instructions ???Recorded ???Confirmed ???Type aspirin 81 mg tablet,delayed 81 mg PO QHS afib 09/08/14 5 History release albuterol sulfate 90 mcg/actuation 2 puff inhalation Q6H PRN 07/20/25 Rx aerosol inhaler shortness of breath or wheezing #8.5 grams atorvastatin 40 mg tablet 40 mg PO QHS cholesterol #90 tabs 09/15/24 07/20/25 Rx metoprolol tartrate 25 mg tablet 12.5 mg (1/2 x 25 mg) PO BID for 1 12/09/23 07/20/25 Rx blood pressure #90 TABLETS potassium chloride 20 mEq 20 meq PO DAILY #90 tabs 01/27/25 07/20/25 Rx tablet,extended release apixaban 5 mg tablet (Eliquis) 5 mg PO BID [facility]ing to [facility] 07/20/25 Rx [facility] tabs magnesium oxide 400 mg PO QDAY 04/27/25 07/20/25 H istory oxybutynin chloride 5 mg 5 mg PO QDAY 04/27/25 07/20/25 His tory tablet,extended release 24 hr pantoprazole 40 mg tablet,delayed 40 mg PO QDAY #90 tabs 04/27/25 0 07/20/25 Rx release furosemide 40 mg tablet (Lasix) 40 mg PO QAM #90 tabs 05/19/25 Rx levothyroxine 125 mcg tablet 125 mcg PO QDAY 05/28/25 07/20/25 History (Synthroid) spironolactone 25 mg tablet 25 mg PO QDAY Pt never received RX 05/28/25 07/20/25 History sent on 04/20/25 sertraline 100 mg tablet 150 mg PO DAILY 06/19/25 07/20/25 History fluticasone furoate 200 1 inh inhalation QDAY (more content not included)... Normal [facility] Chest PA and Lateralon 07-20 Chest PA and Lateral [facility] [address] [place], [place] [id number] Chest PA and Lateral MR#: [id number] Acct: [id number] Name: KIM CABRERA Rep #: [id number] : 1940 F 85 From: Alex Beavers PCP: FIFI Lu Status: [facility] [place] Study: Chest PA and Lateral Date of Exam: 07/20/25 Exam# [id number] Ordering Dr: Elijah West MD PROCEDURE: CHEST PA AND LATERAL 07/20/2025 REASON FOR EXAM: FOR PPM GENERATOR CHANGE TECHNIQUE: Procedure Code: RADCXR Modality: DX Procedure: CHEST PA AND LATERAL COMPARISON: 06/23/2024 FINDINGS: Left chest pacer. Median sternotomy wires. Mild pulmonary vascular congestion and interstitial edema. No focal consolidation. No pleural effusion or pneumothorax. Large cardiomegaly. Calcified aortic arch. No acute fractures. Multilevel lower thoracic compression deformities. RAD/Chest PA and Lateral IMPRESSION: Mild pulmonary vascular congestion and interstitial edema. No focal consolidation. Large cardiomegaly. Multilevel lower thoracic compression deformities. Reading Location: [id number] CC: FIFI Bosch; Dr. Elijah West MD Assistant Professor Of Chemistry: Signed Normal [facility] Chloride assayOrdered By: Victorino West on 07-20-2025 Chloride [Moles/Vol] 102 mmol/L 98-108 [facility] Erythrocyte distribution wid th ratioOrdered By: Elijah West on 07-20-2025 Erythrocyte distribution width (RBC) [Ratio] 16.4 % High 11.6-14.6 [facility] Erythrocyte distribution wid th standard deviationOrdered By: Elijah West on 07-20-2025 Erythrocyte distribution width (RBC) [Ratio] 57.5 fl High 35.1-43.9 [facility] Glomerular filtration rate ( GFR) estimation/1.73 sq m using serum, plasma, or whole bOrdered By: Elijah West on 07-20-2025 GFR/1.73 sq M.predicted among non-blacks MDRD (S/P/Bld) [Vol rate/Area] 60 mL/min/{1.73_m2} >60 [facility] Comment on above: mL/min/1.73m2 CKD-EP I Creatinine Equation (2020) Hematocrit Auto (Bld) [Volum e fraction]Ordered By: Elijah West on 07-20-2025 Hematocrit (Bld) [Volume fraction] 36.8 % Low 37-47 [facility] Hemoglobin measurementOrdere d By: Elijah West on 07-20-2025 Hemoglobin (Bld) [Mass/Vol] 11.6 g/dL Low 12.0-15.0 [facility] International normalized rat io (INR) calculationOrdered By: Elijah West on 07-20-2025 INR Coag (Bld) [Relative time] 1.5 {INR} [facility] Ketones Test strip Ql (U)Ord ered By: Elijah West on 07-20-2025 Ketones Ql (U) Negative Negative [facility] MCV (mean corpuscular volume ) determinationOrdered By: Elijah West on 07-20-2025 MCV (RBC) [Entitic vol] 95.6 fL 81-99 [facility] Mean corpuscular hemoglobin (MCH) determinationOrdered By: Elijah West on 07-20-2025 MCH (RBC) [Entitic mass] 30.1 pg 27.0-32.0 [facility] Mean corpuscular hemoglobin concentration (MCHC) determinationOrdered By: Elijah West on 07-20-2025 MCHC (RBC) [Mass/Vol] 31.5 g/dL Low 32-36 [facility] Mean platelet volume determi nationOrdered By: Elijah West on 07-20-2025 Platelet mean volume (Bld) [Entitic vol] 10.5 fL 6.2-12.0 [facility] Microscopic analysis of urin e for red blood cells (RBC)Ordered By: Elijah West on 07-20-2025 Microscopic analysis of urine for red blood cells (RBC) 0 SEEN /hpf 0-5 [facility] Mucus LM Ql (Urine sed)Order ed By: Elijah West on 07-20-2025 Mucus Ql (Urine sed) 0 SEEN /hpf [facility] Natriuretic peptide.B prohor tima N-Terminal [Mass/volume] in Serum or PlasmaOrdered By: Bailey Topete on 07-20-2025 Natriuretic peptide.B prohormone N-Terminal [Mass/Vol] 1290 pg/mL <1800 [facility] Comment on above: Heart Failure Unlike ly: < 300 pg/mLHeart Failure Likely< 50 Years: > 450 pg/mL50-75 Years: > 900 pg/mL>75 Years: > 1800 pg/mL Nitrite Test strip Ql (U)Ord ered By: Elijah West on 07-20-2025 Nitrite Ql (U) Negative Negative [facility] Pacemaker Checkon 07-20-2025 Pacemaker Check [facility] [address] [place] [address] Pacemaker Check Date of Service: 07/20/25 1704 MR#: [id number] Acct: [id number] Name: KIM CABRERA Rep #: [id number] : 1940 From: Deonna Hernandez Age/Sex: 85/F [place] [facility] [place]: Signed with Addenda ADDENDUM by Deonna Hernandez on 07/20/25 at 1805 Billing Codes Nurse, Teaching, Wound Ck (no charge): Yes (INsturctions for PPM gen change) 07/20/25 1805 Date Deonna Hernandez cc: * Signed Billing Codes PM Device Codes: 30161 PM Dev Prog Eval, Dual Assessment and Plan Assessment and Plan (1) Presence of cardiac pacemaker: Status: Chronic Comment: 2011, gen change 2017 (2) Longstanding persistent atrial fibrillation: Status: Chronic Comment: History of AV node ablation; (3) Complete heart block: Status: Chronic 07/20/25 1720 Date Deonna Hernandez Cosigndiandra Signature: Date (if applicable) CC: Normal [facility] Platelet countOrdered By: Victorino West on 07-20-2025 Platelets (Bld) [#/Vol] 149 10*3/uL Low 150-450 [facility] Potassium measurement (mass/ volume)Ordered By: Elijah West on 07-20-2025 Potassium (Unsp spec) [Mass/Vol] 4.7 mmol/L 3.3-5.1 [facility] Pro- Brain NATRIURETIC PEPTI Jp 07-20-2025 Natriuretic peptide B (Bld) [Mass/Vol] 1290 pg/mL Normal <=1800 [facility] Comment on above: Result Comment: Hear t Failure Unlikely: < 300 pg/mL Heart Failure Likely < 50 Years: > 450 pg/mL 50-75 Years: > 900 pg/mL >75 Years: > 1800 pg/mL Performed By: #### L 503.7505 #### [facility] [address] [place], [address] Protein Test strip Ql (U)Ord ered By: Elijah West on 07-20-2025 Protein Ql (U) 15 mg/dl High Negative [facility] Prothrombin Time w/INRon INR Coag (PPP) [Relative time] 1.5 {INR} Normal [facility] Comment on above: Performed By: #### L 400.0001, L300.3900, L100.0500, L500.2500 ####[facility] [address] [place], [address] PT Coag (PPP) [Time] 18.5 s High 11.7-14.9 [facility] Comment on above: Performed By: #### L 400.0001, L300.3900, L100.0500, L500.2500 ####[facility] [address] [place], [address] Prothrombin timeOrdered By: Elijah West on 07-20-2025 PT Coag (PPP) [Time] 18.5 s High 11.7-14.9 [facility] RBC Auto (Bld) [#/Vol]Ordere d By: Elijah West on 07-20-2025 RBC (Bld) [#/Vol] 3.85 10*6/uL Low 4.2-5.4 [facility] Serum creatinine measurement (mass/volume)Ordered By: Elijah West on 07-20-2025 Creatinine [Mass/Vol] 0.94 mg/dL 0.70-1.20 [facility] Serum glucose measurement (m ass/volume)Ordered By: Portia Jenna on 07-20-2025 Glucose [Mass/Vol] 80 mg/dL 70-99 [facility] Serum or plasma calcium soni urement (mass/volume)Ordered By: Elijah West on 07-20-2025 Calcium [Mass/Vol] 9.7 mg/dL 7.6-11.0 [facility] Serum or plasma urea nitroge n measurement (mass/volume)Ordered By: Elijah West on 07-20-2025 Urea nitrogen [Mass/Vol] 16 mg/dL 4-19 [facility] Sodium levelOrdered By: Kenneth West on 07-20-2025 Sodium [Moles/Vol] 137 mmol/L 133-145 [facility] Squamous epithelial cells de tection in urine sediment by light microscopyOrdered By: Elijah West on 07-20-2025 Epithelial cells.squamous LM Ql (Urine sed) 5-10 SEEN /hpf 5-10 [facility] Urinalysis, Completeon 07-20 EPI,SQUAMOUS 5-10 SEEN Normal 5-10 [facility] Comment on above: Order Comment: For P PM generator changeCOLLECTOR TO SPECIFY Performed By: #### L 400.0001, L300.3900, L100.0500, L500.2500 ####[facility] [address] [place], [address] WBC 0-5 SEEN Normal 0-5 [facility] Comment on above: Order Comment: For P PM generator changeCOLLECTOR TO SPECIFY Performed By: #### L 400.0001, L300.3900, L100.0500, L500.2500 ####[facility] [address] [place], [address] BACTERIA 0 SEEN Normal None Seen [facility] Comment on above: Order Comment: For P PM generator changeCOLLECTOR TO SPECIFY Performed By: #### L 400.0001, L300.3900, L100.0500, L500.2500 ####[facility] [address] [place], [address] Mucus Ql (Urine sed) 0 SEEN Normal [facility] Comment on above: Order Comment: For P PM generator changeCOLLECTOR TO SPECIFY Performed By: #### L 400.0001, L300.3900, L100.0500, L500.2500 ####[facility] [address] [place], [place], [address] RBC 0 SEEN Normal 0-5 [facility] Comment on above: Order Comment: For P PM generator changeCOLLECTOR TO SPECIFY Performed By: #### L 400.0001, L300.3900, L100.0500, L500.2500 ####[facility] [address] [place], [place], [id number] Urine clarityOrdered By: Karen West on 07-20-2025 Clarity (U) Sl. Cloudy Clear [facility] Urine color determinationOrd ered By: Elijah West on 07-20-2025 Color (U) Yellow Yellow [facility] Urine glucose detectionOrder ed By: Elijah West on 07-20-2025 Glucose Ql (U) Normal mg/dl Normal [facility] Urine leukocyte esterase det ection by dipstickOrdered By: Elijah West on 07-20-2025 Leukocyte esterase Test strip Ql (U) 100 /ul High Negative [facility] Urine pHOrdered By: Jeanna on 07-20-2025 pH (U) 6.0 [pH] 5.0 - 8.0 [facility] Urine sediment bacteria coun t by microscopy (number/high power field)Ordered By: Elijah West on 07-20-2025 Bacteria LM.HPF (Urine sed) [#/Area] 0 /[HPF] None Seen [facility] Urine specific gravity measu rementOrdered By: Elijah West on 07-20-2025 Specific gravity (U) [Rel density] 1.015 1.002-1.030 [facility] Urine urobilinogen measureme ntOrdered By: Elijah West on 07-20-2025 Urobilinogen Ql (U) Normal mg/dl Normal [facility] White blood cell (WBC) count Ordered By: Elijah West on 07-20-2025 WBC (Bld) [#/Vol] 7.2 10*3/uL 4.4-11.0 [facility] White blood cell countOrdere d By: Elijah West on 07-20-2025 White blood cell count 0-5 SEEN /hpf 0-5 [facility] Echo Completeon 06-22-2025 Echo Complete [facility] [address] [place] [address] Echo Complete 06/22/25 1256 MR#: [id number] Acct: [id number] Name: KIM CABRERA Rep #: [id number] : 1940 85 From: Elijah West MD Attending Dr: Bailey Topete DRILL [facility]-C Status: REG Apurva JOHNSON Ordering Dr: Bailey Topete DRILL HAND [facility] Date: 06/22/25 Location: [facility] Sex: F C Admitted: Reason For Study : Procedure This was a 2D Doppler, Color Flow transthoracic echocardiogram. Exam performed in department. Left Ventricle Normal LV size. Moderate concentric left ventricular hypertrophy. D shaped septum in systole and diastole. The left ventricular ejection fraction is 55 %. No regional wall motion abnormalities noted. Right Ventricle ICD or pacer leads identified within the right ventricle. Severely dilated right ventricle. Moderately severe global right ventricular systolic dysfunction. Atria The left atrium is severely enlarged. Very severely enlarged. Mitral Valve There is moderate mitral annular calcification. Tricuspid Valve Normal tricuspid valve. Moderate (2+) tricuspid valve insufficiency. Pulmonary pressures are underestimated due to the RV dilatation and hypofunction. Aortic Valve Trisinus/trileaflet aortic valve. Moderate focal aortic valve calcification. Peak aortic valve gradient 43 mmHg. Mean aortic valve gradient 26 mmHg. Mild to moderate aortic stenosis. Mild (1+) aortic valve insufficiency. Pulmonic Valve Normal pulmonic valve. Great Vessels Normal aortic root. The pulmonary artery is normal size. The inferior vena cava is dilated. IVC systolic flow reversal. No collapse of the inferior vena cava. Pericardium/Pleural No pericardial effusion. MMode/2D Measurements Calculations LVIDd: 4.7 cm IVSd: 1.5 cm LVOT diam: 2.0 cm LVIDs: 3.1 cm LVPWd: 1.3 cm LVOT area: 3.0 cm2 RVDd: 6.8 cm FS: 33.8 % Ao root diam: 3.7 cm LAV(MOD-bp): 109.4 ml LVAd ap4: 19.9 cm2 LAV(MOD-bp) Indexed: 54.3 ml/m2 LVLd ap4: 6.3 cm LAV(MOD-sp2): 112.7 ml EDV(MOD- sp4): 57.2 ml LAV(MOD-sp4): 95.8 ml EDV(sp4-el): 53.1 ml LVAs ap4: 13.1 cm2 LVLs ap4: 6.5 cm ESV(MOD- sp4): 21.7 ml ESV(sp4-el): 22.3 ml EF(MOD-sp4): 62.0 % EF(sp4-el): 58.0 % SV(MOD-sp4): 35.5 ml SV(sp4-el): 30.8 ml Ao sinus diam: 2.8 cm SI(MOD-sp4): 17.6 ml/m2 Ao ST Junction: 2.2 cm Aortic Valve Planimetry: 0.78 cm2 LA A4 area: 30.2 cm2 LA dimension(2D): 6.2 cm TAPSE: 1.7 cm RA A4 area: 53.8 cm2 Time Measurements MV dec time: 0.20 sec Doppler Measurements Calculations MV E max deep: 120.0 cm/sec Lat Peak E' Deep: 12.8 cm/sec Med Peak E' Deep: 9.3 cm/sec MV A max deep: 36.5 cm/sec E/E' lat: 9.4 E/E' med: 13.0 MV E/A: 3.3 MV V2 max: 132.7 cm/sec MV P1/2t max deep: 133.7 cm/sec Ao V2 max: 329.3 cm/sec MV max P.0 mmHg MV P1/2t: 74.0 msec Ao max P.4 mmHg MV V2 mean: 64.7 cm/sec MV dec slope: 529.2 cm/sec2 Ao V2 mean: 245.0 cm/sec MV mean P.1 mmHg Ao mean P.5 mmHg MV V2 VTI: 29.6 cm MVA(P1/2t): 3.0 cm2 Ao V2 VTI: 74.1 cm MVA(VTI): 2.0 cm2 AV (velocity ratio): 0.26 FINN(I,D): 0.78 cm2 FINN(V,D): 0.85 cm2 AI max deep: 438.8 cm/sec LV V1 max: 91.9 cm/sec MR max deep: 566.8 cm/sec AI max P.1 mmHg LV V1 max P.4 mmHg MR max P.5 mmHg LV V1 mean P.0 mmHg MR mean deep: 384.1 cm/sec AI dec slope: 269.0 cm/sec2 LV V1 mean: 66.3 cm/sec MR mean P.1 mmHg AI P1/2t: 477.9 msec LV V1 VTI: 19.0 cm MR VTI: 170.7 cm SV(LVOT): 57.7 ml PA V2 max: 97.9 cm/sec PI dec slope: 313.1 cm/sec2 TR max deep: 235.5 cm/sec TR max P.2 mmHg ECHO/Echo Complete Interpretation Summary Normal LV size. Moderate concentric left ventricular hypertrophy. The left ventricular ejection fraction is 55 %. Severely dilated right ventricle. D shaped septum in systole and diastole. Moderate (2+) tricuspid valve insufficiency. Mild to moderate aortic stenosis. Above findings further similar to the previous echocardiogram. (more content not included)... Normal [facility] Echocardiogram study reportO rdered By: Elijah West on 06-22-2025 Study report [facility] [address] [place] [address] Echo Complete 06/22/25 1256 MR#: [id number] Acct: [id number] Name: KIM CABRERA Rep #:[id number] : 1940 85 From: Elijah Beavers Attending Dr: FIFI Schmidt S tatus: REG CLI Ordering Dr: Bailey Topete NP [facility] [employer] Vincent e: 06/22/25 Location: [facility] Sex: F C Admitted: Reason For Study : Procedure This was a 2D Doppler, Color Flow transthoracic echocardiogram. Exam performed in department. Left Ventricle Normal LV size. Moderate concentric left ventricular hypertrophy. D shaped septum in systole and diastole. The left ventricular ejection fraction is 55 %. No regional wall motion abnormalities noted. Right Ventricle ICD or pacer leads identified within the right ventricle. Severely dilated rightventricle. Moderately severe global right ventricular systolic dysfunction. Atria The left atrium is severely enlarged. Very severely enlarged. Mitral Valve There is moderate mitral annular calcification. Tricuspid Valve Normal tricuspid valve. Moderate (2+) tricuspid valve insufficiency. Pulmonary pressures are underestimated due to the RV dilatation and hypofunction. Aortic Valve Trisinus/trileaflet aortic valve. Moderate focal aortic valve calcification. Peak aortic valve gradient 43 mmHg. Mean aortic valve gradient 26 mmHg. Mild to moderate aortic stenosis. Mild (1+) aortic valve insufficiency. Pulmonic Valve Normal pulmonic valve. Great Vessels Normal aortic root. The pulmonary artery is normal size. The inferior vena cava is dilated. IVC systolic flow reversal. No collapse of the inferior vena cava. Pericardium/Pleural No pericardial effusion. MMode/2D Measurements & Calculations LVIDd: 4.7 cm IVSd: 1.5 cm LVOT diam: 2.0 cm LVIDs: 3.1 cm LVPWd: 1.3 cm LVOT area: 3.0 cm2 RVDd: 6.8 cm FS: 33.8 % Ao root diam: 3.7 cm LAV(MOD-bp): 109.4 ml LVAd ap4: 19.9 cm2 LAV(MOD-bp) Indexed: 54.3 ml/m2 LVLd ap4: 6.3 cm LAV(MOD-sp2): 112.7 ml EDV(MOD-sp4): 57.2 ml LAV(MOD-sp4): 95.8 ml EDV(sp4-el): 53.1 ml LVAs ap4: 13.1 cm2 LVLs ap4: 6.5 cm ESV(MOD-sp4): 21.7 ml ESV(sp4-el): 22.3 ml EF(MOD-sp4): 62.0 % EF(sp4-el): 58.0 % SV(MOD-sp4): 35.5 ml SV(sp4-el): 30.8 ml Ao sinus diam: 2.8 cm SI(MOD-sp4): 17.6 ml/m2 Ao ST Junction: 2.2 cm Aortic Valve Planimetry: 0.78 cm2 LA A4 area: 30.2 cm2 LA dimension(2D): 6.2 cm TAPSE: 1.7 cm RA A4 area: 53.8 cm2 Time Measurements MV dec time: 0.20 sec Doppler Measurements & Calculations MV E max deep: 120.0 cm/sec Lat Peak E' Deep: 12.8 cm/sec Med Peak E' Deep: 9.3 cm/sec MV A max deep: 36.5 cm/sec E/E' lat: 9.4 E/E' med: 13.0 MV E/A: 3.3 MV V2 max: 132.7 cm/sec MV P1/2t max deep: 133.7 cm/sec Ao V2 max: 329.3 cm/sec MV max P.0 mmHg MV P1/2t: 74.0 msec Ao max P.4 mmHg MV V2 mean: 64.7 cm/sec MV dec slope: 529.2 cm/sec2 Ao V2 mean: 245.0 cm/sec MV mean P.1 mmHg Ao mean P.5 mmHg MV V2 VTI: 29.6 cm MVA(P1/2t): 3.0 cm2 Ao V2 VTI: 74.1 cm MVA(VTI): 2.0 cm2 AV (velocity ratio): 0.26 FINN(I,D): 0.78 cm2 FINN(V,D): 0.85 cm2 ____ AI max deep: 438.8 cm/sec LV V1 max: 91.9 cm/sec MR max deep: 566.8 cm/sec AI max P.1 mmHg LV V1 max P.4 mmHg MR max P.5 mmHg LV V1 mean P.0 mmHg MR mean deep: 384.1 cm/sec AI dec slope: 269.0 cm/sec2 LV V1 mean: 66.3 cm/sec MR mean P.1 mmHg AI P1/2t: 477.9 msec LV V1 VTI: 19.0 cm MR VTI: 170.7 cm SV(LVOT): 57.7 ml PA V2 max: 97.9 cm/sec PI dec slope: 313.1 cm/sec2 TR max deep: 235.5 cm/sec TR max P.2 mmHg ECHO/Echo Complete Interpretation Summary Normal LV size. Moderate concentric left ventricular hypertrophy. The left ventricular ejection fraction is 55 %. Severely dilated right ventricle. D shaped septum in systole and diastole. Moderate (2+) tricuspid valve insufficiency. Mild to moderate aortic stenosis. Above findings further similar to the previous echocardiogram. Ordering Physician: Bailey Topete Referring Physician: Bailey Topete Performed By: Jameson Light RCS 06/22/25 1632 Date ____ (more content not included)... [facility] Work Phone: Cardiology Visit Reporton Cardiology Visit Report [facility] [address] [place] [address] OFFICE VISIT Date of Service: 06/19/25 MR#: [id number] Acct: [id number] Name: KIM CABRERA Rep #: [id number] : 1940 Provider: FIFI khan Age/Sex: 85/F Location[place] [facility] Status: Signed HPI HPI History of Present Illness Details: KIM CABRERA, is an 85 F who presents to the office today for a cardiovascular follow-up. She has a history of right coronary artery stenting and balloon angioplasty to ostial RCA and proximal RCA on 07/24/2009. She also underwent emergent sternotomy for left atrial laceration noted after pulmonary vein isolation procedure on 10/14/2009. She then underwent cardiac catheterization on 06/20/2019 that demonstrated distal left main 50% lesion disease in the left anterior descending artery 40 to 50% in-stent stenosis of the right coronary artery. She was sent to [facility] to evaluate for further therapy. It was determined after much discussion that she would benefit from a redo sternotomy. She underwent coronary artery bypass grafting with a left internal mammary artery to the left anterior descending artery, and radial T graft of the internal mammary artery to the first obtuse marginal branch on 08/28/2019. She also had ligation of the left atrial appendage. She did have an echocardiogram performed in August 2019 which demonstrated ejection fraction of 55 to 60%, dilated RV, mild aortic valve stenosis and severe tricuspid regurgitation. Her right ventricular systolic pressure was estimated to be 37 mmHg. She does have a previous smoking history. She also has a permanent pacemaker implantation after her AV junctional ablation was completed. She has a history of bilateral renal artery stenosis with stenting, chronic atrial fibrillation, hypertension, and hyperlipidemia. She states that while down in [place] over the winter, she fell and broke her left hip. While she was in the hospital, they did an echocardiogram, and PRIMO. She states that she was told her tricuspid and aortic valve were severe. She did bring disc's with images-will have Dr. West review. From a cardiac standpoint, the patient is doing well. She denies any palpitations, chest pain, pressure or heaviness. She does acknowledge SOB with exertion-worsening with going up hill, or climbing stairs. She denies Orthopnea, and PND. She does not have bleeding issues; no blood in urine, stool, or nosebleeds. She does acknowledge bruising. She does acknowledge fatigue, she attributes this to possible depression. She denies myalgias, or claudication. She does not have edema, or sudden weight gain. She denies lightheadedness, dizziness, syncopal or near syncopal episodes, and headaches. She is scheduled for an echocardiogram on 06/22/2025. Intake Vital Signs 03/19/25 06:41 05/28/25 09:38 08/22/25 07:55 Height 5 ft 8 in 5 ft 8 in 5 ft 8 in Weight: 183 lb BMI 27.8 BP 147/68 H Blood Pressure Location Lt brachial Position Sitting Pulse 68 Pulse Source Monitor Pulse Oximetry (%) 97 Oxygen Delivery Method room air Intake Visit Reasons: 3 M FU 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: No Is patient in pain?: No Allergies No Known Allergies Allergy (Verified 06/19/25 10:42) Medications ???Medication ???Instructions ???Recorded ???Confirmed ???Type aspirin 81 mg tablet,delayed 81 mg PO QHS afib 09/08/14 5 History release albuterol sulfate 90 mcg/actuation 2 puff inhalation Q6H PRN 06/19/25 Rx aerosol inhaler shortness of breath or wheezing #8.5 grams atorvastatin 40 mg tablet 40 mg PO QHS cholesterol #90 tabs 09/15/24 06/19/25 Rx metoprolol tartrate 25 mg tablet 12.5 mg (1/2 x 25 mg) PO BID for 1 12/09/23 06/19/25 Rx blood pressure #90 TABLETS potassium chloride 20 mEq 20 meq PO DAILY #90 tabs 01/27/25 06/19/25 Rx tablet,extended release apixaban 5 mg tablet (Eliquis) 5 mg PO BID [facility] 06/[facility]/25 Rx [facility] tabs magnesium oxide 400 mg PO QDAY 04/27/25 06/19/25 H istory oxybutynin chloride 5 mg 5 mg PO QDAY 04/27/25 06/19/25 His tory tablet,extended release 24 hr pantoprazole 40 mg tablet,delayed 40 mg PO QDAY #90 tabs 04/27/25 0 06/19/25 Rx release furosemide 40 mg tablet (Lasix) 40 mg PO QAM #90 tabs 05/19/25 Rx fluticasone furoate 200 1 inh inhalation QDAY #3 ea 06/19/25 Rx mcg/actuation blister powder for inhalation (Arnuity Ellipta) gabapentin 100 mg capsule 100 mg PO TID 05/28/25 06/19/25 Hi story levothyroxine 125 mcg tablet 125 mcg PO QDAY 05/28/25 06/19/25 History (Synthroid) spironolactone 25 mg tablet 25 mg PO QDAY Pt never received RX 05/28/25 06/19/25 History sent on 04/20/25 sertraline 100 mg tablet 150 mg PO DAILY 06/19/2505/30 (more content not included)... Normal [facility] Inital Evaluation (1) - PTon 06-19-2025 Inital Evaluation (1) - PT [facility] [address] [place] [address] / REHABILITATION SERVICES INITIAL EVALUATION MR#: [id number] Acct: [id number] Name: KIM CABRERA Rep #: [id number] : 1940 85 From: Vj Galdamez PT, ATC Referring Dr.: AMAYA Richard Status: REG RCR Insurance: MEDICARE PART A B [employer] Patient's Visit Information Visit Information Visit Information: KIM CABRERA is a 85 year old F referred to Physical Therapy by AMAYA Richard with a diagnosis of Lumbar stenosis. Date of Evaluation: 06/17/25 Physical Therapist: Vj Galdamez, PT, ATC Visit Plan Frequency: 2x /Week Duration: 4-6 Weeks Plan: SKTC/DKTC, L/S stab ex's, balance and proprio, nustep, and HEP Subjective Subjective: Pt reports she has had LBP for several months. Pt notes she has had B hip partial replacements in the past and notes this may have caused some of her pain. Pt reports her LBP will extend to her L gluteal region on occasion. Pt reports she is unable to stand or ambulate for greater than 5 min secondary to LBP. Pt reports she used to exercise consistently here, but ever since she has gone through all of these conditions, she is very weak and knows she needs therapy. Pt reports she is able to take her baths I, but is extremely tired after that. Pt reports the same holds true for making her bed. Pt reports she has also fallen a lot lately, which she would really like to prevent in the future. Pt has had xrays shich revealed degenerative changes in the L/S.0/10 pain while sitting here at rest, 8/10 pain at worst. Pain LBP: Pain Intensity (Out of 10): 0 Pain Intensity Range: 8 Objective Objective: TU sec Neuro: B LE sensation is WNL to light touch MMT: B LE's are grossly 4-/5 throughout Gait: Pt is able to ambulate 170 feet until needing to rest secondary to fatigue Balance/Special Test Scores Oswestry Low Back Score: 9 Goals Goal 1:: Decrease LBP x 50% to aid with standing tolerance Goal Time Frame: 4-6 Weeks Goal 2:: Pt will perform tug in under 20 sec to aid with community efficiency Goal Time Frame: 4-6 Weeks Goal 3:: Pt will be able to ambulate greater than 600 feet until needing to rest secondary to LBP Goal Time Frame: 4-6 Weeks Goal 4:: I with HEP Rehabilitation Potential Physical Therapy Diagnosis: Pt has LBP, L LE radiculopathy, and difficulty with ambulation secondary to degenerative changes in L/S Rehabilitation Potential: Good Anticipated Interventions Patient/Client Instruction: Educate patient on: Condition and Plan of Care For the Purpose of:: To improve self management Therapeutic Exercise to Include: Strength training, Endurance training, Balance training, Gait and locomotor training and Dynamic Lumbar Stabilization For the Purpose of:: To decrease pain, To increase ROM and To improve muscle performance and motor function Text: Thank you for the opportunity to evaluate your patient. For Medicare and Medicare HMO plans, please review the plan of care and approve it. It will need to be FAXED BACK to us at [phone] for Medicare purposes. For Medicare only, by signing this I certify the plan of care. Please let me know if there are questions or concerns regarding this plan of care. Physician Signature: D ate: 06/19/25 0714 CC: FIFI Bosch; AMAYA Richard [facility] Signed Normal [facility] Pulmonary Visit Reporton Pulmonary Visit Report [facility] [place] [address] [place] [address] OFFICE VISIT Date of Service: 05/28/25 MR#: [id number] Acct: [id number] Name: KIM CABRERA Rep #: [id number] : 1940 Provider: FIFI Bran Age/Sex: 85/F [place] [facility] [place] Status: Signed Assessment and Plan Assessment and Plan (1) Asthma-COPD overlap syndrome: Status: Chronic Plan: The patient is reporting a cough that can be productive of yellow-colored sputum, for this reason I performed a NIOX procedure in the office today. It returned within normal limits, this indicates that the patient does not require systemic corticosteroids. She does not appear to be an exacerbation of asthma/COPD today. No need for prednisone or antibiotic. Continue current maintenance medication, symptomatically controlled with the use of Arnuity. I reminded the patient that she should utilize albuterol rescue for increase in shortness of breath, frequent cough, chest tightness or wheezing. She conveys understanding. No additional testing at this time. Contact the office for any new or worsening symptoms. An acute visit and typically be arranged within 1-2 days. Follow-up in 3 to 4 months. The patient admits that she may travel to [place] for the winter. She is agreeable to follow-up when she returns if she goes to [place]. (2) Hypoxia: Status: Acute Plan: Newly discovered nocturnal hypoxia. The patient is responding well to 1 L/min of supplemental oxygen with sleep. No additional testing. Follow-up in 3 to 4 months. (3) Mild aortic stenosis: Status: Chronic Plan: Murmur sounds to be more prevalent on exam today. The patient reports that she has an upcoming echocardiogram. I will defer evaluation and management of this murmur and its cause to cardiology. It could be contributing to the patient's shortness of breath on exertion. Orders: Orders NIOX Today J44.9 - Chronic obstructive pulmonary disease, unspecified Medications: Refilled fluticasone furoate 200 mcg/actuation (Arnuity Ellipta) administer at approximately the same time(s) each day 1 inh inhalation QDAY 3 ea 3RF Plan Details Additional Comments: This note was generated with Dragon dictation software. It may contain incorrect words, spelling, and punctuation that were not noted in checking the note before signing. I have spent 31 minutes today reviewing labs, records and history. Time includes coordinating care, interpretation of tests, discussion with patient's other health care providers via telephone. This also includes time I spent with the patient for exam, treatment plan and education as well as documenting clinical information. Follow Up: 3 Months HPI 1 M FU Chief Complaint: Test results HPI Comments Details: This patient presents to the office today for routine follow-up of her asthma/COPD overlap syndrome and to discuss test results. She is ambulatory with use of a cane. She has not recently been seen in the ED or urgent care for any respiratory illness. She has not required any antibiotics or prednisone for any breathing problems. She is compliant with use of Arnuity 1 puff daily. She does report rinsing her mouth out after each use. She denies any medication side effect such as sore throat or thrush. She has not recently used her albuterol rescue inhaler. She continues to experience shortness of breath on exertion. She believes her shortness of breath is progressing. She has an occasional cough that can be productive of clear to yellow sputum. She denies any hemoptysis. She reports occasional wheezing but denies any chest tightness, chest pain or palpitations. She has not had any fever, chills or body aches. She is now compliant with use of supplemental oxygen 1 L/min with sleep. She states that she has had no difficulty acclimating to sleeping with supplemental oxygen in place. She does occasionally awaken in the morning to find that it has been displaced, however it is not often. Test results personally reviewed with the patient: Walking oximetry completed on May 08, 2025. She was able to ambulate a total of 182 feet over the course of 6 minutes. She did not desaturate during testing and did not qualify for supplemental oxygen. Overnight oximetry completed on May 08, 2025. The patient experienced a low saturation of 83%. She spent 5 minutes equal to or less than 88%. Intake Vital Signs 05/08/25 09:45 05/28/25 09:38 Height 5 ft 8 in 5 ft 8 in Weight: 180 lb BMI 27.3 BP 124/66 H Blood Pressure Location Lt brachial Position Sitting Respiration 18 Pulse 70 Pulse Source Monitor Temp 97.4 F L Temperature Source Temporal Artery Pulse Oximetry (%) 97 Oxygen Delivery Method room air Intake Visit Reasons: 1 M FU Chief Compl (more content not included)... Normal [facility] 6 Minute Walk Teston 025 6 Minute Walk Test y [facility] Pulmonary Services/Neurology [address] [place] [address] MR#: [id number] Acct: [id number] Name: KIM CABRERA Rep #: [id number] : 1940 85 From: Quinton Alfonso DO Referring Dr: Zeina Bran DRILL HAND DRILL HAND-C Status: REG CLI Location: PSN Date: Sex: F C PSN 6 Minute Walk Test 6 Minute Walk Test 6 Minute Walk Test: 6 Minute Walk Test PSN:6-Minute Walk Test Start: 05/08/25 10:07 Freq: Status: Active Protocol: [id number].[id number] Document 05/08/25 09:45 AEH (Rec: 05/08/25 10:17 AEH [id number]) 6 Minute Walk Test Date Performed 05/08/25 Time Performed 09:45 Height 5 ft 8 in Weight: 195 lb Weight in Pounds 195.[address]: Yonathan Assistive device Cane used: Pre-test Oxygen Delivery Room Air Method Pulse Ox (%) 95 Pulse Rate (60-100 70 beats/min) Dyspnea Jaspal Scale ( 0 0-10) Exertion Jaspal Scale 6 (6-20) 1st minute Oxygen Delivery Room Air Method Pulse Ox (%) 97 Pulse Rate (60-100 74 beats/min) 2nd minute Oxygen Delivery Room Air Method Pulse Ox (%) 97 Pulse Rate (60-100 78 beats/min) 3rd minute Oxygen Delivery Room Air Method Number of Rests 1 Taken 4th minute Oxygen Delivery Room Air Method Number of Rests 1 Taken 5th minute Oxygen Delivery Room Air Method Pulse Ox (%) 97 Pulse Rate (60-100 73 beats/min) 6th minute Oxygen Delivery Room Air Method Pulse Ox (%) 97 Pulse Rate (60-100 86 beats/min) Dyspnea Jaspal Scale ( 1 0-10) Exertion Jaspal Scale 13 (6-20) Post-test Oxygen Delivery Room Air Method Pulse Ox (%) 97 Pulse Rate (60-100 71 beats/min) Full Laps Walked 3 Partial Lap, Number 5 of Tiles Walked Total Distance 182 Walked (ft) 05/08/25 10:10 Cardiopulmonary Services by Eleonora Lopez Pt arrived to walk in wheelchair with cane. Pt started walk using cane with an [employer] pushing wheelchair behind and this [employer]ENT walking alongside pt. At 2 minutes 50 seconds into walk pt stumbled and stated she felt like her hip was going to give out. Pt was seated in wheelchair. Pt denied that the rest was needed for any S.O.B. Pt felt she was able to start walking again at 4 minutes 35 seconds into walk. Pt finished walk without incident. Initialized on 05/08/25 10:10 - END OF NOTE Interpretation Interpretation: The patient ambulated 182 feet over the course of 6 minutes beginning on room air with use of a cane. Pretesting oxygen saturation was noted to be 95% on room air. With ambulation, the rose ox ygen saturation was 97%. Although there was evidence of impaired walk distance, there was no significant exertional oxygen desaturation. Recommendations Recommendations: There is no indication for the use of supplemental oxygen at this time. 05/12/2534 Date Quinton Alfonso DO CC: Date Dictated: 05/12/25932 Date Transcribed: 05/12/25932 Assistant Professor Of Chemistry: Dr. Quinton Alfonso, Signed Normal [facility] L/S Spine Min 4 Viewson 04-28 L/S Spine Min 4 Views [facility] [address], [place] [id number] L/S Spine Min 4 Views MR#: [id number] Acct: [id number] Name: KIM CABRERA Rep #: [id number] : 1940 F 85 From: Todd Ledezma MD PCP: Teagan Bosch NP-Apurva Status: REG CLI Study: L/S Spine Min 4 Views Date of Exam: 05/12/25 Exam# [id number] Ordering Dr: Teagan Bosch EXAM: XR Lumbosacral Spine, 4 or 5 Views CLINICAL INDICATION: RULE OUT FRACTURE TECHNIQUE: Frontal, lateral and bilateral oblique views of the lumbar spine. COMPARISON: No relevant prior studies available. FINDINGS: VERTEBRAE: Moderate compression deformity of L1 vertebral body status post vertebroplasty. Mild endplate degenerative changes of the visualized spine. Moderate disc degeneration of L1-2 L3. Moderate facet arthropathy of L3- S1. Normal alignment. No acute fracture. SACRUM/COCCYX: Unremarkable as visualized. No acute fracture. DISC SPACES: See above. SOFT TISSUES: Unremarkable. VASCULATURE: Scattered calcified atherosclerotic disease of aorta. RAD/L/S Spine Min 4 Views IMPRESSION: 1. No acute fracture. 2. Degenerative changes as above. 3. Postoperative changes as above. 4. If symptoms persist, further evaluation with MRI is recommended. Reading [facility] CC: FIFI Bosch Assistant Professor Of Chemistry: Signed Normal [facility] Pulmonary Visit Reporton Pulmonary Visit Report [facility] Pulmonary Medicine of [address] [place] [address] OFFICE VISIT Date of Service: 04/27/25 MR#: [id number] Acct: [id number] Name: KIM CABREAR Rep #: [id number] : 1940 Provider: FIFI Bran Age/Sex: 84/F [place] [facility] [place] Status: Signed Assessment and Plan Assessment and Plan (1) Asthma-COPD overlap syndrome: Status: Chronic Plan: It is unclear if the progression of her shortness of breath is related to asthma/COPD overlap syndrome. She does not appear to be an exacerbation of COPD today. No need for prednisone or antibiotic. Continue current maintenance medication, symptomatically controlled with the use of Arnuity and as needed albuterol. If you recall, she previously required supplemental oxygen on exertion, but last test indicated that she did not require the oxygen. Repeating the pulmonary stress test to reevaluate for exertional hypoxia. Contact the office for any new or worsening symptoms. An acute visit and typically be arranged within 1-2 days. Follow-up in 1 month to discuss test results. May consider repeating PFT. (2) Hypoxia: Status: Acute Plan: I am concerned that the patient may be experiencing hypoxia with sleep. Performing a nocturnal oximetry. If the patient is found to be hypoxic, saturation 88% or less, for 5 minutes or greater of testing, then supplemental oxygen will be ordered to be worn with sleep. Return to the office in 1 month to discuss test results. Orders: Orders Simple Pulmonary Exercise Test Today R06.09 - Other forms of dyspnea OutPt Pulse Ox/Cont Overnight Today R06.09 - Other forms of dyspnea Plan Details Additional Comments: This note was generated with [employer] dictation software. It may contain incorrect words, spelling, and punctuation that were not noted in checking the note before signing. Follow Up: 1 Month HPI 1 Y FU Chief Complaint: routine follow up HPI Comments Details: This patient presents to the office today for routine follow-up of her asthma/COPD overlap syndrome. She is ambulatory with use of a cane and currently on room air. She is accompanied today by her friend. She has not recently been seen in the ED or urgent care for any respiratory illness. She has not required any antibiotics or prednisone for any breathing problems. She admits to a fall while she was residing in [place] for the winter that resulted in a hip fracture and a partial hip replacement. She is compliant with use of Arnuity 1 puff daily. She does report rinsing her mouth out after each use. She denies any medication side effect such as sore throat or thrush. She has not recently used her albuterol rescue inhaler. She continues to experience shortness of breath on exertion. She believes her shortness of breath is progressing. She denies any cough, sputum production or hemoptysis. She reports occasional wheezing but denies any chest tightness, chest pain or palpitations. She has not had any fever, chills or body aches. Intake Vital Signs 04/25/24 08:06 08/28/24 11:01 04/27/25 09:00 Height 5 ft 8 in 5 ft 8 in 5 ft 8 in Weight: 185 lb BMI 28.1 BP 124/68 H Blood Pressure Location Lt brachial Position Sitting Respiration 20 H Pulse 70 Pulse Source Monitor Temp 97.4 F L Temperature Source Temporal Artery Pulse Oximetry (%) 97 Oxygen Delivery Method room air Intake Visit Reasons: 1 Y FU Chief Complaint: COPD, asthma 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: No Accompanied by: Friend Allergies No Known Allergies Allergy (Verified 04/27/25 12:51) Medications ???Medication ???Instructions ???Recorded ???Confirmed ???Type aspirin 81 mg tablet,delayed 81 mg PO QHS afib 09/08/14 5 History release albuterol sulfate 90 mcg/actuation 2 puff inhalation Q6H PRN 04/27/25 Rx aerosol inhaler shortness of breath or wheezing #8.5 grams sertraline 100 mg tablet 100 mg PO DAILY 08/14/23 04/27/25 History fluticasone furoate 200 1 inh inhalation QDAY #3 ea 04/27/25 Rx mcg/actuation blister powder for inhalation (Arnuity Ellipta) atorvastatin 40 mg tablet 40 mg PO QHS cholesterol #90 tabs 09/15/24 04/27/25 Rx metoprolol tartrate 25 mg tablet 12.5 mg (1/2 x 25 mg) PO BID for 1 12/09/23 04/27/25 Rx blood pressure #90 TABLETS potassium chloride 20 mEq 20 meq PO DAILY #90 tabs 01/27/25 04/27/25 Rx tablet,extended release levothyroxine 100 mcg tablet 125 mcg PO QDAY thyroid 03/19/25 0 04/27/25 History tramadol 50 mg tablet 50 mg PO BID PRN 03/19/25 04/27/25 History apixaban 5 mg tablet (Eliquis) 5 mg PO BID [facility] 04/27/25 Rx [facility] tabs pantoprazole 40 mg tablet,delayed 40 mg PO QDAY #90 tabs 04/15/25 0 04/27/25 Rx rele (more content not included)... Normal [facility] Cardiology Visit Reporton Cardiology Visit Report [facility] [address] [place] [address] OFFICE VISIT Date of Service: 03/19/25 MR#: [id number] Acct: [id number] Name: KIM CABRERA Rep #: [id number] : 1940 Provider: FIFI khan Age/Sex: 84/F Location: [facility] Status: Signed HPI HPI History of Present Illness Details: KIM CABRERA, is an 84 F who presents to the office today for a cardiovascular follow-up. She has a history of right coronary artery stenting and balloon angioplasty to ostial RCA and proximal RCA on 07/24/2009. She also underwent emergent sternotomy for left atrial laceration noted after pulmonary vein isolation procedure on 10/14/2009. She then underwent cardiac catheterization on 06/20/2019 that demonstrated distal left main 50% lesion disease in the left anterior descending artery 40 to 50% in-stent stenosis of the right coronary artery. She was sent to [facility] to evaluate for further therapy. It was determined after much discussion that she would benefit from a redo sternotomy. She underwent coronary artery bypass grafting with a left internal mammary artery to the left anterior descending artery, and radial T graft of the internal mammary artery to the first obtuse marginal branch on 08/28/2019. She also had ligation of the left atrial appendage. She did have an echocardiogram performed in August 2019 which demonstrated ejection fraction of 55 to 60%, dilated RV, mild aortic valve stenosis and severe tricuspid regurgitation. Her right ventricular systolic pressure was estimated to be 37 mmHg. She does have a previous smoking history. She also has a permanent pacemaker implantation after her AV junctional ablation was completed. She has a history of bilateral renal artery stenosis with stenting, chronic atrial fibrillation, hypertension, and hyperlipidemia. She states that while down in [place] over the winter, she fell and broke her left hip. While she was in the hospital, they did an echocardiogram, and PRIMO. She states that she was told her tricuspid and aortic valve were severe. She did bring disc's with images-will have Dr. West review. From a cardiac standpoint, the patient is doing well. She denies any palpitations, chest pain, pressure or heaviness. She does have SOB with exertion, and occasional at rest. She denies Orthopnea, and PND. She does not have bleeding issues; no blood in urine, stool, or nosebleeds. She does acknowledge fatigue. She denies myalgias, or claudication. She does not have edema, or sudden weight gain. She denies lightheadedness, dizziness, syncopal or near syncopal episodes, and headaches. Intake Vital Signs 08/28/24 11:01 03/19/25 06:41 Height 5 ft 8 in 5 ft 8 in Weight: 193 lb BMI 29.3 BP 133/80 H Blood Pressure Location Lt brachial Position Sitting Respiration 18 Pulse 70 Pulse Source Monitor Pulse Oximetry (%) 98 Intake Visit Reasons: 7 M FU 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: No Is patient in pain?: No Allergies No Known Allergies Allergy (Verified 03/19/25 08:58) Medications ???Medication ???Instructions ???Recorded ???Confirmed ???Type aspirin 81 mg tablet,delayed 81 mg PO QHS afib 09/08/14 5 History release albuterol sulfate 90 mcg/actuation 2 puff inhalation Q6H PRN 03/19/25 Rx aerosol inhaler shortness of breath or wheezing #8.5 grams sertraline 100 mg tablet 100 mg PO DAILY 08/14/23 03/19/25 History fluticasone furoate 200 1 inh inhalation QDAY #3 ea 03/19/25 Rx mcg/actuation blister powder for inhalation (Arnuity Ellipta) atorvastatin 40 mg tablet 40 mg PO QHS cholesterol #90 tabs 09/15/24 03/19/25 Rx metoprolol tartrate 25 mg tablet 12.5 mg (1/2 x 25 mg) PO BID for 1 12/09/23 03/19/25 Rx blood pressure #90 TABLETS potassium chloride 20 mEq 20 meq PO DAILY #90 tabs 01/27/25 03/19/25 Rx tablet,extended release furosemide 40 mg tablet (Lasix) 40 mg PO QAM 03/19/25 03/19/25 His tory levothyroxine 100 mcg tablet 125 mcg PO QDAY thyroid 03/19/25 0 03/19/25 History methocarbamol 500 mg tablet 500 mg PO TID 03/19/25 03/19/25 Hi story pantoprazole 40 mg tablet,delayed 40 mg PO QDAY 03/19/25 03/19/25 H istory release spironolactone 25 mg tablet 25 mg PO QDAY 03/19/25 03/19/25 Hi story tamsulosin 0.4 mg capsule 0.4 mg PO QDAY 03/19/25 03/19/25 H istory tramadol 50 mg tablet 50 mg PO BID PRN 03/19/25 03/19/25 History apixaban 5 mg tablet (Eliquis) 5 mg PO BID Faxing to [facility] tabs Have you fallen in the past year?: Yes Nurse's Note: fell in [place], had hip surgery [facility] Medical History History of stent insertion of renal artery Atherosclerosis of both carotid arteries Divert (more content not included)... Normal [facility] Basophil percentageOrdered B y: Bailey Topete on 08-22-2023 Chloride [Moles/Vol] 105 mmol/L 98-107 [facility] Glucose [Mass/Vol] 88 mg/dL 74-106 [facility] Potassium [Moles/Vol] 3.8 mmol/L 3.5-5.1 [facility] Sodium [Moles/Vol] 138 mmol/L 136-145 [facility] Laboratory - Chemistry and C hemistry - challengeOrdered By: Bailey Topete on 08-22-2023 CO2 [Moles/Vol] 28.0 mmol/L 21.0-32.0 [facility] Urea nitrogen/Creatinine [Mass ratio] 22.4 mg/mg 08-17 [facility] No Panel InformationOrdered By: Bailey Topete on 08-22-2023 Estimated GFR (MDRD) Amer 63 mL/min >60 [facility] Comment on above: GFR Calc Estimated GFR (MDRD) Non-Af Amer 52 mL/min >60 [facility] Comment on above: Non- GFR Calc Serum or plasma calcium soni urement (mass/volume)Ordered By: Bailey Topete on 08-22-2023 Calcium [Mass/Vol] 9.4 mg/dL 8.5-10.1 [facility] Serum or plasma creatinine m easurement (mass/volume)Ordered By: Bailey Topete on 08-22-2023 Creatinine [Mass/Vol] 1.07 mg/dL 0.55-1.02 [facility] Comment on above: The validity of the calculated GFR & GFRAA in patients over 70 years has not been determined. Clinical correlation is essential. Serum or plasma urea nitroge n measurement (mass/volume)Ordered By: Bailey Topete on 08-22-2023 Urea nitrogen [Mass/Vol] 24 mg/dL 7-18 [facility] Thin prep Papanicolaou smear with manual screeningOrdered By: Bailey Topete on 08-22-2023 Thin prep Papanicolaou smear with manual screening 5 5-15 [facility] Absolute lymphocyte countOrd ered By: Bailey Topete on 08-15-2023 Lymphocytes Auto (Unsp spec) [#/Vol] 1.32 10*3/uL 0.83-4.51 [facility] Basophil percentageOrdered B y: Bailey Topete on 08-15-2023 Basophils/100 WBC (Bld) 0.8 % 0-1 [facility] Bilirubin [Mass/Vol] 0.90 mg/dL 0.20-1.00 [facility] Comment on above: For patients on eltr ombopag therapy, use of Dimension [place] TBIL is not recommended. Chloride [Moles/Vol] 108 mmol/L 98-107 [facility] Cholesterol [Mass/Vol] 107 mg/dL <200 [facility] Comment on above: <200 mg/dL Desirable 200-240 mg/dL Borderline >240 mg/dL High Risk Eosinophils/100 WBC (Bld) 2.7 % 0-5 [facility] Glucose [Mass/Vol] 107 mg/dL 74-106 [facility] Comment on above: Fasting Glucose resu lt from 100 to 125 mg/dL suggests IMPAIRED HOMEOSTASIS per A.D.A. criteria. Neutrophils (Bld) [#/Vol] 2.7 10*3/uL 2.0-7.7 [facility] Neutrophils/100 WBC (Bld) 55.0 % 47-70 [facility] Potassium [Moles/Vol] 4.1 mmol/L 3.5-5.1 [facility] Protein [Mass/Vol] 7.9 g/dL 6.4-8.2 [facility] Sodium [Moles/Vol] 139 mmol/L 136-145 [facility] Triglyceride [Mass/Vol] 105 mg/dL <199 [facility] Comment on above: The drugs N-Acetylcy steine and Metamizole may falsely depress this assay.Serum Triglycerides Reference Interval Normal <150 mg/dL Borderline high 150 - 199 mg/dL High 200 - 499 mg/dL Very High > or = 500 mg/dL WBC (Bld) [#/Vol] 4.8 10*3/uL 4.4-11.0 [facility] Blood erythrocytes count (nu mber/volume)Ordered By: Bailey Topete on 08-15-2023 RBC (Bld) [#/Vol] 3.96 10*6/uL 4.2-5.4 [facility] Blood hemoglobin measurement (mass/volume)Ordered By: Bailey Topete on 08-15-2023 Hemoglobin (Bld) [Mass/Vol] 12.3 g/dL 12.0-15.0 [facility] Blood lymphocytes/100 leukoc ytesOrdered By: Bailey Topete on 08-15-2023 Lymphocytes/100 WBC (Bld) 27.3 % 19-41 [facility] Blood monocytes/100 leukocyt esOrdered By: Bailey Topete on 08-15-2023 Monocytes/100 WBC (Bld) 13.6 % 0-10 [facility] Blood platelet adequacy dete ction by light microscopyOrdered By: Bailey Topete on 08-15-2023 Platelets LM Ql (Bld) MOD DEC ADEQ [facility] Blood platelet mean volumeOr dered By: Bailey Topete on 08-15-2023 Platelet mean volume (Bld) [Entitic vol] 11.2 fL 6.2-12.0 [facility] Determination of erythrocyte mean corpuscular volume (MCV)Ordered By: Bailey Topete on 08-15-2023 MCV (RBC) [Entitic vol] 100.5 fL 81-99 [facility] Direct bilirubinOrdered By: Bailey Topete on 08-15-2023 Bilirubin.direct [Mass/Vol] 0.27 mg/dL 0.00-0.30 [facility] Hematocrit Auto (Bld) [Volum e fraction]Ordered By: Bailey Topete on 08-15-2023 Hematocrit (Bld) [Volume fraction] 39.8 % 37-47 [facility] Laboratory - Chemistry and C hemistry - challengeOrdered By: Bailey Topete on 08-15-2023 ALP [Catalytic activity/Vol] 64 U/L 45-117 [facility] ALT [Catalytic activity/Vol] 20 U/L 13-56 [facility] CO2 [Moles/Vol] 27.0 mmol/L 21.0-32.0 [facility] Free T4 [Mass/Vol] 0.99 ng/dL 0.76-1.46 [facility] Globulin (S) [Mass/Vol] 4.1 g/dL 2.2-4.2 [facility] Natriuretic peptide B (Bld) [Mass/Vol] 273.9 pg/mL 0-100 [facility] Urea nitrogen/Creatinine [Mass ratio] 16.4 mg/mg 10-20 [facility] Laboratory - Hematology and Cell countsOrdered By: Bailey Topete on 08-15-2023 Erythrocyte distribution width (RBC) [Entitic vol] 51.6 fL 35.1-43.9 [facility] Erythrocyte distribution width (RBC) [Ratio] 14.1 % 11.6-14.6 [facility] Immature granulocytes/100 WBC (Bld) 0.600 % 0.0-0.9 [facility] Comment on above: IG% - Immature Granu locytes (promyelocytes, myelocytes and metamyelocytes) > 1% indicates that a LEFT SHIFT is Present. MCH (RBC) [Entitic mass] 31.1 pg 27.0-32.0 [facility] Nucleated RBC/100 WBC (Bld) [Ratio] 0 % 0-5 [facility] MCHC Auto (RBC) [Mass/Vol]Or dered By: Bailey Topete on 08-15-2023 MCHC (RBC) [Mass/Vol] 30.9 g/dL 32-36 [facility] No Panel InformationOrdered By: Bailey Topete on 08-15-2023 Estimated GFR (MDRD) Amer 70 mL/min >60 [facility] Comment on above: GFR Calc Estimated GFR (MDRD) Non-Af Amer 58 mL/min >60 [facility] Comment on above: Non- GFR Calc Free Triiodothyronine (T3) pg/dL 1.8 pg/mL 2.18-3.98 [facility] Thyroid Stimulating Hormone (TSH) 9.42 uIU/mL 0.358-3.74 [facility] Platelets bldOrdered By: Isaiah oTpete on 08-15-2023 Platelets (Bld) [#/Vol] 92 10*3/uL 150-450 [facility] Serum or plasma albumin soni urement (mass/volume)Ordered By: Bailey Topete on 08-15-2023 Albumin [Mass/Vol] 3.8 g/dL 3.2-5.0 [facility] Serum or plasma calcitriol m easurement (mass/volume)Ordered By: Bailey Topete on 08-15-2023 1,25-dihydroxyvitamin D3 [Mass/Vol] 48.1 pg/mL 24.8-81.5 [facility] Comment on above: Performed at: [employer] [id number] Director: Monica Mattson MD, Phone: [phone] Serum or plasma calcium soni urement (mass/volume)Ordered By: Bailey Topete on 08-15-2023 Calcium [Mass/Vol] 9.1 mg/dL 8.5-10.1 [facility] Serum or plasma cholesterol in HDL measurement (mass/volume)Ordered By: Bailey Topete on 08-15-2023 Cholesterol in HDL [Mass/Vol] 40 mg/dL >40 [facility] Comment on above: The drugs N-Acetylcy steine and Metamizole may falsely depress this assay. Reference Range HDL <40 mg/dL Low HDL Cholesterol HDL >or= 60 mg/dL High HDL Cholesterol Serum or plasma cholesterol in VLDL measurement (mass/volume)Ordered By: Bailey Topete on 08-15-2023 Cholesterol in VLDL [Mass/Vol] 21 mg/dL 5-40 [facility] Serum or plasma creatinine m easurement (mass/volume)Ordered By: Bailey Topete on 08-15-2023 Creatinine [Mass/Vol] 0.98 mg/dL 0.55-1.02 [facility] Comment on above: The validity of the calculated GFR & GFRAA in patients over 70 years has not been determined. Clinical correlation is essential. Serum or plasma low density lipoprotein (LDL) cholesterol measurement (mass/volume)Ordered By: Bailey Topete on 08-15-2023 Cholesterol in LDL [Mass/Vol] 46 mg/dL 0-130 [facility] Serum or plasma urea nitroge n measurement (mass/volume)Ordered By: Bailey Topete on 08-15-2023 Urea nitrogen [Mass/Vol] 16 mg/dL 7-18 [facility] Thin prep Papanicolaou smear with manual screeningOrdered By: Bailey Topete on 08-15-2023 Thin prep Papanicolaou smear with manual screening 21 U/L 15-37 [facility] Thin prep Papanicolaou smear with manual screening 4 5-15 [facility] Basophil percentageon 2021 Bilirubin [Mass/Vol] 0.90 mg/dL 0.20-1.00 [facility] Work Phone: Comment on above: For patients on eltr ombopag therapy, use of Dimension [place] TBIL is not recommended. Cholesterol [Mass/Vol] 131 mg/dL <200 [facility] Work Phone: Comment on above: <200 mg/dL Desirable 200-240 mg/dL Borderline >240 mg/dL High Risk Protein [Mass/Vol] 7.2 g/dL 6.4-8.2 [facility] Work Phone: Triglyceride [Mass/Vol] 139 mg/dL <199 [facility] Work Phone: Comment on above: The drugs N-Acetylcy steine and Metamizole may falsely depress this assay.Serum Triglycerides Reference Interval Normal <150 mg/dL Borderline high 150 - 199 mg/dL High 200 - 499 mg/dL Very High > or = 500 mg/dL Direct bilirubinon 2 Bilirubin.direct [Mass/Vol] 0.21 mg/dL 0.00-0.30 [facility] Work Phone: Laboratory - Chemistry and C hemistry - challengeon 09-20-2022 ALP [Catalytic activity/Vol] 59 U/L 45-117 [facility] Work Phone: ALT [Catalytic activity/Vol] 28 U/L 13-56 [facility] Work Phone: Globulin (S) [Mass/Vol] 3.4 g/dL 2.2-4.2 [facility] Work Phone: Serum or plasma albumin soni urement (mass/volume)on 09-20-2022 Albumin [Mass/Vol] 3.8 g/dL 3.2-5.0 [facility] Work Phone: Serum or plasma cholesterol in HDL measurement (mass/volume)on 09-20-2022 Cholesterol in HDL [Mass/Vol] 40 mg/dL >40 [facility] Work Phone: Comment on above: The drugs N-Acetylcy steine and Metamizole may falsely depress this assay. Reference Range HDL <40 mg/dL Low HDL Cholesterol HDL >or= 60 mg/dL High HDL Cholesterol Serum or plasma cholesterol in VLDL measurement (mass/volume)on 09-20-2022 Cholesterol in VLDL [Mass/Vol] 28 mg/dL 5-40 [facility] Work Phone: Serum or plasma low density lipoprotein (LDL) cholesterol measurement (mass/volume)on 09-20-2022 Cholesterol in LDL [Mass/Vol] 63 mg/dL 0-130 [facility] Work Phone: Thin prep Papanicolaou smear with manual screeningon 09-20-2022 Thin prep Papanicolaou smear with manual screening 29 U/L 15-37 [facility] Work Phone: Absolute lymphocyte counton 06-06-2022 Lymphocytes Auto (Unsp spec) [#/Vol] 3.03 10*3/uL 0.83-4.51 [facility] Work Phone: Basophil percentageon 2021 Basophil percentage 0 SEEN /hpf 0-5 [facility] Work Phone: Basophils/100 WBC (Bld) 0.5 % 0-1 [facility] Work Phone: Bilirubin [Mass/Vol] 0.50 mg/dL 0.20-1.00 [facility] Work Phone: Comment on above: For patients on eltr ombopag therapy, use of Dimension [place] TBIL is not recommended. Chloride [Moles/Vol] 106 mmol/L 98-107 [facility] Work Phone: Eosinophils/100 WBC (Bld) 2.7 % 0-5 [facility] Work Phone: Glucose [Mass/Vol] 123 mg/dL 74-106 [facility] Work Phone: [phone] Comment on above: Fasting Glucose resu lt from 100 to 125 mg/dL suggests IMPAIRED HOMEOSTASIS per A.D.A. criteria. Neutrophils (Bld) [#/Vol] 3.3 10*3/uL 2.0-7.7 [facility] Work Phone: Neutrophils/100 WBC (Bld) 41.9 % 47-70 [facility] Work Phone: [phone] Potassium [Moles/Vol] 3.5 mmol/L 3.5-5.1 [facility] Work Phone: Protein [Mass/Vol] 7.6 g/dL 6.4-8.2 [facility] Work Phone: Sodium [Moles/Vol] 139 mmol/L 136-145 [facility] Work Phone: WBC (Bld) [#/Vol] 7.8 10*3/uL 4.4-11.0 [facility] Work Phone: Bilirubin Test strip Ql (U)o n 06-06-2022 Bilirubin Ql (U) Negative Negative [facility] Work Phone: Blood erythrocytes count (nu mber/volume)on 06-06-2022 RBC (Bld) [#/Vol] 3.97 10*6/uL 4.2-5.4 [facility] Work Phone: Blood hemoglobin measurement (mass/volume)on 06-06-2022 Hemoglobin (Bld) [Mass/Vol] 12.8 g/dL 12.0-15.0 [facility] Work Phone: Blood lymphocytes/100 leukoc yteson 06-06-2022 Lymphocytes/100 WBC (Bld) 38.7 % 19-41 [facility] Work Phone: Blood monocytes/100 leukocyt eson 06-06-2022 Monocytes/100 WBC (Bld) 15.0 % 0-10 [facility] Work Phone: Blood platelet mean volumeon 06-06-2022 Platelet mean volume (Bld) [Entitic vol] 10.9 fL 6.2-12.0 [facility] Work Phone: Determination of erythrocyte mean corpuscular volume (MCV)on 06-06-2022 MCV (RBC) [Entitic vol] 96.2 fL 81-99 [facility] Work Phone: Hematocrit Auto (Bld) [Volum e fraction]on 06-06-2022 Hematocrit (Bld) [Volume fraction] 38.2 % 37-47 [facility] Work Phone: Ketones Test strip Ql (U)on 06-06-2022 Ketones Ql (U) Negative Negative [facility] Work Phone: Laboratory - Chemistry and C hemistry - challengeon 06-06-2022 ALP [Catalytic activity/Vol] 60 U/L 45-117 [facility] Work Phone: ALT [Catalytic activity/Vol] 25 U/L 13-56 [facility] Work Phone: CO2 [Moles/Vol] 26.0 mmol/L 21.0-32.0 [facility] Work Phone: Globulin (S) [Mass/Vol] 3.6 g/dL 2.2-4.2 [facility] Work Phone: Lipase [Catalytic activity/Vol] 263 U/L 73-393 [facility] Work Phone: Urea nitrogen/Creatinine [Mass ratio] 20.2 mg/mg 10-20 [facility] Work Phone: Laboratory - Hematology and Cell countson 06-06-2022 Erythrocyte distribution width (RBC) [Entitic vol] 46.5 fL 35.1-43.9 [facility] Work Phone: Erythrocyte distribution width (RBC) [Ratio] 13.1 % 11.6-14.6 [facility] Work Phone: Immature granulocytes/100 WBC (Bld) 1.200 % 0.0-0.9 [facility] Work Phone: Comment on above: IG% - Immature Granu locytes (promyelocytes, myelocytes and metamyelocytes) > 1% indicates that a LEFT SHIFT is Present. MCH (RBC) [Entitic mass] 32.2 pg 27.0-32.0 [facility] Work Phone: Nucleated RBC/100 WBC (Bld) [Ratio] 0 % 0-5 [facility] Work Phone: MCHC Auto (RBC) [Mass/Vol]on 06-06-2022 MCHC (RBC) [Mass/Vol] 33.5 g/dL 32-36 [facility] Work Phone: Mucus LM Ql (Urine sed)on Mucus Ql (Urine sed) 0 SEEN /hpf [facility] Work Phone: Nitrite Test strip Ql (U)on 06-06-2022 Nitrite Ql (U) Negative Negative [facility] Work Phone: No Panel Informationon 06-06 Ethyl Alcohol Level < 3.0 mg/dL [facility] Work Phone: Comment on above: The serum:whole bloo d ethanol ratio is approximately 1.14and varies slightly with hematocrit. Medical Alcohol reference interval and critical value innon-tolerant individuals; 50 - 100 Impairment 100 Intoxication 100 - 250 Severe Poisoning 250 - 400 Deep/possible fatal coma Estimated Creatinine Clearance Calc 39.72 ml/min [facility] Work Phone: Estimated GFR (MDRD) Amer 65 mL/min >60 [facility] Work Phone: Comment on above: GFR Calc Estimated GFR (MDRD) Non-Af Amer 54 mL/min >60 [facility] Work Phone: Comment on above: Non- GFR Calc Troponin I High Sensitivity 10 pg/mL 3.0-54.0 [facility] Work Phone: Comment on above: Please Note: [place] t Units and Gender Specific Reference Ranges. For more information see Policy Stat Procedure [place] High Sensitivity Troponin (TNIH) and attachments. Platelets bldon 06-06-2022 Platelets (Bld) [#/Vol] 131 10*3/uL 150-450 [facility] Work Phone: Protein Test strip Ql (U)on 06-06-2022 Protein Ql (U) 15 mg/dl Negative [facility] Work Phone: Serum or plasma albumin soni urement (mass/volume)on 06-06-2022 Albumin [Mass/Vol] 4.0 g/dL 3.2-5.0 [facility] Work Phone: Serum or plasma albumin/glob ulin mass ratioon 06-06-2022 Albumin/Globulin [Mass ratio] 1.1 {ratio} 0.9-2.4 [facility] Work Phone: Serum or plasma calcium soni urement (mass/volume)on 06-06-2022 Calcium [Mass/Vol] 9.6 mg/dL 8.5-10.1 [facility] Work Phone: Serum or plasma creatinine m easurement (mass/volume)on 06-06-2022 Creatinine [Mass/Vol] 1.04 mg/dL 0.55-1.02 [facility] Work Phone: Comment on above: The validity of the calculated GFR & GFRAA in patients over 70 years has not been determined. Clinical correlation is essential. Serum or plasma urea nitroge n measurement (mass/volume)on 06-06-2022 Urea nitrogen [Mass/Vol] 21 mg/dL 7-18 [facility] Work Phone: Squamous epithelial cells de tection in urine sediment by light microscopyon 06-06-2022 Epithelial cells.squamous LM Ql (Urine sed) 0 SEEN /hpf 5-10 [facility] Work Phone: Thin prep Papanicolaou smear with manual screeningon 06-06-2022 Thin prep Papanicolaou smear with manual screening 28 U/L 15-37 [facility] Work Phone: Thin prep Papanicolaou smear with manual screening 7 5-15 [facility] Work Phone: Urine blood detectionon 08-0 RBC Ql (U) Negative Negative [facility] Work Phone: RBC Ql (U) 0 SEEN /hpf 0-5 [facility] Work Phone: Urine clarityon 06-06-2022 Clarity (U) Clear Clear [facility] Work Phone: Urine color determinationon 06-06-2022 Color (U) Yellow Yellow [facility] Work Phone: Urine glucose detectionon Glucose Ql (U) Normal mg/dl Normal [facility] Work Phone: Urine leukocyte esterase det ection by dipstickon 06-06-2022 Leukocyte esterase Test strip Ql (U) Negative Negative [facility] Work Phone: Urine pHon 06-06-2022 pH (U) 6.0 [pH] 5.0 - 8.0 [facility] Work Phone: Urine sediment bacteria coun t by microscopy (number/high power field)on 06-06-2022 Bacteria LM.HPF (Urine sed) [#/Area] RARE /hpf None Seen [facility] Work Phone: Urine specific gravity measu rementon 06-06-2022 Specific gravity (U) [Rel density] 1.020 1.002-1.030 [facility] Work Phone: Urobilinogen Auto test strip Ql (U)on 06-06-2022 Urobilinogen Ql (U) Normal mg/dl Normal [facility] Work Phone: Laboratory - Chemistry and C hemistry - challengeon 03-28-2022 Glucose [Mass/Vol] 103 mg/dL 70-110 [facility] Work Phone: Laboratory - Microbiology an d Antimicrobial susceptibilityon 02-02-2022 SARS-CoV-2 (COVID-19) RNA OWEN+probe Ql (Unsp spec) Detected [facility] Work Phone: No Panel Informationon 02-02 Influenza Types A,B Rapid (Clinic) Not detected [facility] Work Phone: Lab Report: Prothrombin Time w/INRon 11-02-2017 INR Coag (PPP) [Relative time] 2.4 {INR} Invalid Interpretation Code [facility] Work Phone: [phone] PT Coag (PPP) [Time] 25.250954694 s High 11.7-14.9 [facility] Work Phone: [phone] Lab Report: Prothrombin Time w/INRon 10-31-2017 INR Coag (PPP) [Relative time] 2.2 {INR} Invalid Interpretation Code [facility] Work Phone: [phone] PT Coag (PPP) [Time] 23.786221538 s High 11.7-14.9 [facility] Work Phone: [phone] Lab Report: Prothrombin Time w/INRon 10-24-2017 INR Coag (PPP) [Relative time] 3.1 {INR} Invalid Interpretation Code [facility] Work Phone: [phone] PT Coag (PPP) [Time] 30.326398643 s High 11.7-14.9 [facility] Work Phone: [phone] Lab Report: Prothrombin Time w/INRon 10-09-2017 INR Coag (PPP) [Relative time] 2.6 {INR} Invalid Interpretation Code [facility] Work Phone: [phone] PT Coag (PPP) [Time] 26.725513092 s High 11.7-14.9 [facility] Work Phone: [phone] Coumadin Management: Warfari n Calcon 09-18-2017 INR Coag RelTime (Bld) 2 to 3 Invalid Interpretation Code [facility] Work Phone: [phone] international normalized ratio (INR) range 2 to 3 Invalid Interpretation Code [facility] Work Phone: [phone] Coumadin Management: Warfari n Calcon 09-17-2017 INR Coag RelTime (Bld) Hospital lab Invalid Interpretation Code [facility] Work Phone: [phone] Source of INR (PT) measurement Hospital lab Invalid Interpretation Code [facility] Work Phone: [phone] Prothrombin time (PT) Coag time (PPP) 25.2 s Invalid Interpretation Code [facility] Work Phone: [phone] Lab Report: CRPon 09-17-2017 C reactive protein (CRP) 1.72 mg/dL High Units converted. See lab report for original value. [facility] Work Phone: [phone] Lab Report: Erythrocyte Sed Rateon 09-17-2017 Erythrocyte sedimentation rate 7 mm/h Invalid Interpretation Code 0-30 [facility] Work Phone: [phone] Lab Report: Prothrombin Time w/INRon 09-17-2017 INR Coag RelTime (PPP) 2.4 {INR} Invalid Interpretation Code [facility] Work Phone: [phone] Prothrombin time (PT) Coag time (PPP) 25.2 s High 11.7-14.9 [facility] Work Phone: [phone] Lab Report: Uric Acidon 08-30 Urate 8.8 mg/dL High 2.6-6.0 [facility] Work Phone: [phone] Office Visit: [facility] 09-03-20 17 Fall risk assessment No Invalid Interpretation Code [facility] Work Phone: [phone] Coumadin Management: Warf[employer] Calcon 08-28-2017 INR Coag RelTime (Bld) 2 to 3 Invalid Interpretation Code [facility] Work Phone: [phone] INR Coag RelTime (Bld) Hospital lab Invalid Interpretation Code [facility] Work Phone: [phone] INR Coag RelTime (PPP) 2.0 {INR} Invalid Interpretation Code [facility] Work Phone: [phone] Prothrombin time (PT) Coag time (PPP) 21.6 s Invalid Interpretation Code [facility] Work Phone: [phone] Lab Report: Prothrombin Time w/INRon 08-28-2017 Prothrombin time (PT) Coag time (PPP) 21.6 s High 11.7-14.9 [facility] Work Phone: [phone] Coumadin Management: Warfari [employer] 08-07-2017 INR Coag (PPP) [Relative time] 2.2 {INR} Invalid Interpretation Code [facility] Work Phone: [phone] international normalized ratio (INR) range 2 to 3 Invalid Interpretation Code [facility] Work Phone: [phone] PT Coag (PPP) [Time] 23.6 s Invalid Interpretation Code [facility] Work Phone: [phone] Source of INR (PT) measurement Hospital lab Invalid Interpretation Code [facility] Work Phone: [phone] Lab Report: Prothrombin Time w/INRon 08-07-2017 PT Coag (PPP) [Time] 23.477975255 s High 11.7-14.9 [facility] Work Phone: [phone] Lab Report: Prothrombin Time w/INRon 07-27-2017 INR Coag (PPP) [Relative time] 1.6 {INR} Invalid Interpretation Code [facility] Work Phone: PT Coag (PPP) [Time] 18.636707581 s High 11.7-14.9 [facility] Work Phone: Lab Report: Protime w/INR Fi ngerstickon 07-27-2017 PT Coag (PPP) [Time] 16.75761 s High 11.9-14.4 [facility] Work Phone: Replaced Document: Protime w /INR Fingerstickon 07-27-2017 Prothrombin time (PT) Coag time (PPP) 16.9 s High 11.9-14.4 [facility] Work Phone: Coumadin Management: Warfari n [employer] 07-23-2017 INR Coag (PPP) [Relative time] 1.6 {INR} Invalid Interpretation Code [facility] Work Phone: [phone] international normalized ratio (INR) range 2 to 3 Invalid Interpretation Code [facility] Work Phone: [phone] PT Coag (PPP) [Time] 18.1 s Invalid Interpretation Code [facility] Work Phone: [phone] Source of INR (PT) measurement Hospital lab Invalid Interpretation Code [facility] Work Phone: [phone] Lab Report: Lipid Profileon 07-23-2017 Cholesterol [Mass/Vol] 258 mg/dL High 200 [facility] Work Phone: [phone] Cholesterol in HDL [Mass/Vol] 37 mg/dL Low [facility] Work Phone: [phone] Cholesterol in LDL [Mass/Vol] 167 mg/dL High 0-130 [facility] Work Phone: [phone] Lipoprotein.pre-beta [Mass/Vol] 54 mg/dL High 5-40 [facility] Work Phone: [phone] Triglyceride [Mass/Vol] 271 mg/dL High [facility] Work Phone: [phone] Lab Report: Liver Profileon 07-23-2017 ALP (Bld) [Catalytic activity/Vol] 37 U/L Low 45-117 [facility] Work Phone: [phone] Globulin (S) [Mass/Vol] 3.7 g/dL High 2.3-3.5 [facility] Work Phone: [phone] Lab Report: Prothrombin Time w/INRon 07-23-2017 PT Coag (PPP) [Time] 18.981086426 s High 11.7-14.9 [facility] Work Phone: [phone] Replaced Document: Liver Pro fileon 07-23-2017 Albumin [Mass/Vol] 4.0 g/dL Invalid Interpretation Code 3.4-5.0 [facility] Work Phone: [phone] Alkaline phosphatase (ALP) 37 U/L Low 45-117 [facility] Work Phone: [phone] ALT [Catalytic activity/Vol] 25 U/L Invalid Interpretation Code 12-78 [facility] Work Phone: [phone] AST [Catalytic activity/Vol] 25 U/L Invalid Interpretation Code 15-37 [facility] Work Phone: [phone] Bilirubin [Mass/Vol] 0.60 mg/dL Invalid Interpretation Code 0.20-1.00 [facility] Work Phone: [phone] Bilirubin.direct [Mass/Vol] 0.15 mg/dL Invalid Interpretation Code 0.00-0.30 [facility] Work Phone: [phone] Globulin 3.7 g/dL High 2.3-3.5 [facility] Work Phone: [phone] Protein [Mass/Vol] 7.7 g/dL Invalid Interpretation Code 6.4-8.2 [facility] Work Phone: [phone] Office Visit: Colonoscopy Co nsulton 07-12-2017 Alcoholism counseling (procedure) no Invalid Interpretation Code [facility] Work Phone: [phone] Dietary management education, guidance, and counseling (procedure) yes Invalid Interpretation Code [facility] Work Phone: [phone] Documentation of current medications (procedure) Done Invalid Interpretation Code [facility] Work Phone: [phone] Fall risk assessment No Invalid Interpretation Code [facility] Work Phone: [phone] Tobacco smoking status Never Invalid Interpretation Code [facility] Work Phone: Tobacco smoking status Tobacco smoking status NHIS Invalid Interpretation Code [facility] Work Phone: [phone] Tobacco use status [facility] Former smoker Invalid Interpretation Code [facility] Work Phone: Coumadin Management: Warfari n Calcon 06-29-2017 INR Coag (PPP) [Relative time] 2.5 {INR} Invalid Interpretation Code [facility] Work Phone: [phone] international normalized ratio (INR) range 2 to 3 Invalid Interpretation Code [facility] Work Phone: [phone] PT Coag (PPP) [Time] 26.4 s Invalid Interpretation Code [facility] Work Phone: [phone] Source of INR (PT) measurement Hospital lab Invalid Interpretation Code [facility] Work Phone: [phone] Coumadin Management: Warfari n Calcon 06-28-2017 INR Coag (PPP) [Relative time] 2.5 {INR} Invalid Interpretation Code [facility] Work Phone: [phone] international normalized ratio (INR) range 2 to 3 Invalid Interpretation Code [facility] Work Phone: [phone] PT Coag (PPP) [Time] 26.4 s Invalid Interpretation Code [facility] Work Phone: [phone] Source of INR (PT) measurement Hospital lab Invalid Interpretation Code [facility] Work Phone: [phone] Lab Report: Prothrombin Time w/INRon 06-28-2017 PT Coag (PPP) [Time] 26.332693935 s High 11.7-14.9 [facility] Work Phone: [phone] Coumadin Management: Warfari n [employer]con 05-31-2017 INR Coag (PPP) [Relative time] 2.3 {INR} Invalid Interpretation Code [facility] Work Phone: [phone] international normalized ratio (INR) range 2 to 3 Invalid Interpretation Code [facility] Work Phone: [phone] PT Coag (PPP) [Time] 24.2 s Invalid Interpretation Code [facility] Work Phone: [phone] Source of INR (PT) measurement Hospital lab Invalid Interpretation Code [facility] Work Phone: [phone] Lab Report: Prothrombin Time w/INRon 05-31-2017 PT Coag (PPP) [Time] 24.301667021 s High 11.7-14.9 [facility] Work Phone: [phone] Coumadin Management: [employer] Calcon 05-03-2017 INR Coag (PPP) [Relative time] 2.1 {INR} Invalid Interpretation Code [facility] Work Phone: [phone] international normalized ratio (INR) range 2 to 3 Invalid Interpretation Code [facility] Work Phone: [phone] PT Coag (PPP) [Time] 22.3 s Invalid Interpretation Code [facility] Work Phone: [phone] Source of INR (PT) measurement Hospital lab Invalid Interpretation Code [facility] Work Phone: [phone] Lab Report: Prothrombin Time w/INRon 05-03-2017 PT Coag (PPP) [Time] 22.913316164 s High 11.7-14.9 [facility] Work Phone: [phone] Coumadin Management: Warfari n Calcon 04-20-2017 INR Coag (PPP) [Relative time] 2.1 {INR} Invalid Interpretation Code [facility] Work Phone: [phone] international normalized ratio (INR) range 2 to 3 Invalid Interpretation Code [facility] Work Phone: [phone] PT Coag (PPP) [Time] 22.7 s Invalid Interpretation Code [facility] Work Phone: [phone] Source of INR (PT) measurement Hospital lab Invalid Interpretation Code [facility] Work Phone: [phone] Lab Report: Prothrombin Time w/INRon 04-20-2017 PT Coag (PPP) [Time] 22.526365576 s High 11.7-14.9 [facility] Work Phone: [phone] Coumadin Management: Warfari n Calcon 04-12-2017 INR Coag (PPP) [Relative time] 1.8 {INR} Invalid Interpretation Code [facility] Work Phone: [phone] international normalized ratio (INR) range 2 to 3 Invalid Interpretation Code [facility] Work Phone: [phone] PT Coag (PPP) [Time] 20.4 s Invalid Interpretation Code [facility] Work Phone: [phone] Source of INR (PT) measurement Hospital lab Invalid Interpretation Code [facility] Work Phone: [phone] Lab Report: Prothrombin Time w/INRon 04-12-2017 PT Coag (PPP) [Time] 20.079248161 s High 11.7-14.9 [facility] Work Phone: [phone] Coumadin Management: Warfari n Calcon 04-05-2017 INR Coag (PPP) [Relative time] 2.4 {INR} Invalid Interpretation Code [facility] Work Phone: [phone] international normalized ratio (INR) range 2 to 3 Invalid Interpretation Code [facility] Work Phone: [phone] PT Coag (PPP) [Time] 25.5 s Invalid Interpretation Code [facility] Work Phone: [phone] Source of INR (PT) measurement Hospital lab Invalid Interpretation Code [facility] Work Phone: [phone] Lab Report: Prothrombin Time w/INRon 04-05-2017 PT Coag (PPP) [Time] 25.499093064 s High 11.7-14.9 [facility] Work Phone: [phone] Coumadin Management: Warfari n Calcon 04-02-2017 INR Coag (PPP) [Relative time] 2.5 {INR} Invalid Interpretation Code [facility] Work Phone: [phone] international normalized ratio (INR) range 2 to 3 Invalid Interpretation Code [facility] Work Phone: [phone] PT Coag (PPP) [Time] 25.6 s Invalid Interpretation Code [facility] Work Phone: [phone] Source of INR (PT) measurement Hospital lab Invalid Interpretation Code [facility] Work Phone: [phone] Lab Report: Basic Metabolic Profile (BMP)on 04-02-2017 Anion gap 6 mmol/L Invalid Interpretation Code 5-15 [facility] Work Phone: [phone] Anion gap [Moles/Vol] 6 mmol/L Invalid Interpretation Code 5-15 [facility] Work Phone: [phone] BUN/Creatinine Ratio 14.0 RATIO Invalid Interpretation Code 10-20 [facility] Work Phone: [phone] Calcium [Mass/Vol] 8.7 mg/dL Invalid Interpretation Code 8.5-10.1 [facility] Work Phone: [phone] Chloride [Moles/Vol] 109 mmol/L High 98-[address] [facility] Work Phone: [phone] CO2 27.0 mmol/L Invalid Interpretation Code 21.0-32.0 [facility] Work Phone: [phone] CO2 (BldV) [Partial pressure] 27.0 mmol/L Invalid Interpretation Code 21.0-32.0 [facility] Work Phone: [phone] Creatinine [Mass/Vol] 1.21 mg/dL High 0.55-1.02 [facility] Work Phone: [phone] eGFR (non-black) 56 mL/min/{1.73_m2} Low >60 [facility] Work Phone: [phone] GFR/1.73 sq M.predicted among non-blacks MDRD (S/P/Bld) [Vol rate/Area] 46 mL/min/{1.73_m2} Low >60 [facility] Work Phone: [phone] Glomerular Filtration rate 56 mL/min Low >60 [facility] Work Phone: [phone] Glucose [Mass/Vol] 93 mg/dL Invalid Interpretation Code 70-110 [facility] Work Phone: [phone] Potassium [Moles/Vol] 4.1 mmol/L Invalid Interpretation Code 3.5-5.1 [facility] Work Phone: [phone] Sodium [Moles/Vol] 142 mmol/L Invalid Interpretation Code 136-145 [facility] Work Phone: [phone] Urea nitrogen [Mass/Vol] 17 mg/dL Invalid Interpretation Code 7-18 [facility] Work Phone: [phone] Urea nitrogen/Creatinine [Mass ratio] 14.4347075 mg/mg Invalid Interpretation Code 10-20 [facility] Work Phone: [phone] Lab Report: Prothrombin Time w/INRon 04-02-2017 PT Coag (PPP) [Time] 25.489398763 s High 11.7-14.9 [facility] Work Phone: [phone] Coumadin Management: Warfari n Calcon 03-29-2017 INR Coag (PPP) [Relative time] 4.5 {INR} Invalid Interpretation Code [facility] Work Phone: [phone] international normalized ratio (INR) range 2 to 3 Invalid Interpretation Code [facility] Work Phone: [phone] PT Coag (PPP) [Time] 40.9 s Invalid Interpretation Code [facility] Work Phone: [phone] Source of INR (PT) measurement Hospital lab Invalid Interpretation Code [facility] Work Phone: [phone] Lab Report: Prothrombin Time w/INRon 03-29-2017 PT Coag (PPP) [Time] 40.894738744 s High 11.7-14.9 [facility] Work Phone: [phone] Clinical Lists Update: Clini ezequiel Noteon 03-07-2017 Left ventricular Ejection fraction 45 % Invalid Interpretation Code [facility] Work Phone: [phone] Coumadin Management: Warfari n Calcon 03-06-2017 INR Coag (PPP) [Relative time] 2.3 {INR} Invalid Interpretation Code [facility] Work Phone: [phone] international normalized ratio (INR) range 2 to 3 Invalid Interpretation Code [facility] Work Phone: [phone] PT Coag (PPP) [Time] 24.1 s Invalid Interpretation Code [facility] Work Phone: [phone] Source of INR (PT) measurement Hospital lab Invalid Interpretation Code [facility] Work Phone: [phone] Lab Report: Prothrombin Time w/INRon 03-06-2017 PT Coag (PPP) [Time] 24.063295519 s High 11.7-14.9 [facility] Work Phone: [phone] Lab Report: BNP,B-Type NATRI URETIC PEPTIDEon 02-27-2017 Natriuretic peptide B (Bld) [Mass/Vol] 322.5 pg/mL High 0-100 [facility] Work Phone: [phone] Lab Report: Basic Metabolic Profile (BMP)on 02-27-2017 Anion gap [Moles/Vol] 5 mmol/L Invalid Interpretation Code 5-15 [facility] Work Phone: [phone] Calcium [Mass/Vol] 9.0 mg/dL Invalid Interpretation Code 8.5-10.1 [facility] Work Phone: [phone] Chloride [Moles/Vol] 104 mmol/L Invalid Interpretation Code 98-107 [facility] Work Phone: [phone] CO2 (BldV) [Partial pressure] 30.0 mmol/L Invalid Interpretation Code 21.0-32.0 [facility] Work Phone: [phone] GFR/1.73 sq M.predicted among non-blacks MDRD (S/P/Bld) [Vol rate/Area] 45 mL/min/{1.73_m2} Low >60 [facility] Work Phone: [phone] Glomerular Filtration rate 54 mL/min Low >60 [facility] Work Phone: [phone] Potassium [Moles/Vol] 4.6 mmol/L Invalid Interpretation Code 3.5-5.1 [facility] Work Phone: [phone] Sodium [Moles/Vol] 139 mmol/L Invalid Interpretation Code 136-145 [facility] Work Phone: [phone] Urea nitrogen/Creatinine [Mass ratio] 20.2476126 mg/mg High 10-20 [facility] Work Phone: [phone] Creatinine [Mass/Vol] 1.24 mg/dL High 0.55-1.02 [facility] Work Phone: [phone] Glucose [Mass/Vol] 79 mg/dL Invalid Interpretation Code 70-110 [facility] Work Phone: [phone] Urea nitrogen [Mass/Vol] 25 mg/dL High 7-18 [facility] Work Phone: [phone] Lab Report: CBC-Complete Blo od Cnt No Diffon 02-27-2017 Erythrocyte distribution width (RBC) [Ratio] 13.7 % Invalid Interpretation Code 11.6-14.6 [facility] Work Phone: [phone] Erythrocyte distribution width Auto Ratio (RBC) 13.7 % Invalid Interpretation Code 11.6-14.6 [facility] Work Phone: [phone] Erythrocytes (RBC) 4.54 10*6/uL Invalid Interpretation Code 4.2-5.4 [facility] Work Phone: [phone] Hematocrit (Bld) [Volume fraction] 43.2 % Invalid Interpretation Code 37-47 [facility] Work Phone: [phone] Hematocrit (HCT) 43.2 % Invalid Interpretation Code 37-47 [facility] Work Phone: [phone] Hemoglobin (Bld) [Mass/Vol] 14.2 g/dL Invalid Interpretation Code 12.0-15.0 [facility] Work Phone: [phone] MCH 31.3 pg Invalid Interpretation Code 27.0-32.0 [facility] Work Phone: [phone] MCH (RBC) [Entitic mass] 31.3 pg Invalid Interpretation Code 27.0-32.0 [facility] Work [phone] MCHC mass conc (RBC) 32.9 G/GL Invalid Interpretation Code 32-36 [facility] Work Phone: [phone] MCV 95.2 fL Invalid Interpretation Code 81-99 [facility] Work Phone: [phone] MCV (RBC) [Entitic vol] 95.2 fL Invalid Interpretation Code 81-99 [facility] Work Phone: [phone] mean corpuscular hemoglobin concentration, RBC 32.9 G/GL Invalid Interpretation Code 32-36 [facility] Work Phone: [phone] Platelet mean volume (Bld) [Entitic vol] 10.3 fL Invalid Interpretation Code 6.2-12.0 [facility] Work Phone: [phone] Platelets 161 10*3/mm3 Invalid Interpretation Code 150-450 [facility] Work Phone: [phone] Platelets (Bld) [#/Vol] 161 10*3/uL Invalid Interpretation Code 150-450 [facility] Work Phone: [phone] PMV by Le 10.3 fL Invalid Interpretation Code 6.2-12.0 [facility] Work Phone: [phone] RBC (Bld) [#/Vol] 4.54 10*6/uL Invalid Interpretation Code 4.2-5.4 [facility] Work Phone: [phone] RDW SD 46.1 fL High 35.1-43.9 [facility] Work [phone] red blood cell distribution width, size density 46.1 fL High 35.1-43.9 [facility] Work [phone] WBC (Bld) [#/Vol] 5.0 10*3/uL Invalid Interpretation Code 4.4-11.0 [facility] 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 Left ventricular Ejection fraction 45 % Invalid Interpretation Code [facility] Work Phone: [phone] Coumadin Management: Fabian louis Calcon 02-14-2017 INR Coag (PPP) [Relative time] 2.8 {INR} Invalid Interpretation Code [facility] Work Phone: [phone] international normalized ratio (INR) range 2 to 3 Invalid Interpretation Code [facility] Work Phone: [phone] PT Coag (PPP) [Time] 28.1 s Invalid Interpretation Code [facility] Work Phone: [phone] Source of INR (PT) measurement Hospital lab Invalid Interpretation Code [facility] Work Phone: [phone] Lab Report: Prothrombin Time w/INRon 02-14-2017 PT Coag (PPP) [Time] 28.823529779 s High 11.7-14.9 [facility] Work Phone: [phone] Lab Report: Lipid Profileon 01-10-2017 Cholesterol [Mass/Vol] 215 mg/dL High 200 [facility] Work Phone: [phone] Cholesterol in HDL [Mass/Vol] 39 mg/dL Low [facility] Work Phone: [phone] Cholesterol in LDL [Mass/Vol] 124 mg/dL Invalid Interpretation Code 0-130 [facility] Work Phone: [phone] Lipoprotein.pre-beta [Mass/Vol] 52 mg/dL High 5-40 [facility] Work Phone: [phone] Triglyceride [Mass/Vol] 261 mg/dL High [facility] Work Phone: [phone] Lab Report: Liver Profileon 01-10-2017 Albumin [Mass/Vol] 3.9 g/dL Invalid Interpretation Code 3.4-5.0 [facility] Work Phone: [phone] ALP (Bld) [Catalytic activity/Vol] 41 U/L Low 45-117 [facility] Work Phone: [phone] ALT [Catalytic activity/Vol] 26 U/L Invalid Interpretation Code 12-78 [facility] Work Phone: [phone] AST [Catalytic activity/Vol] 30 U/L Invalid Interpretation Code 15-37 [facility] Work Phone: [phone] Bilirubin [Mass/Vol] 0.50 mg/dL Invalid Interpretation Code 0.20-1.00 [facility] Work Phone: [phone] Bilirubin.direct [Mass/Vol] 0.12 mg/dL Invalid Interpretation Code 0.00-0.30 [facility] Work Phone: [phone] Globulin (S) [Mass/Vol] 3.4 g/dL Invalid Interpretation Code 2.3-3.5 [facility] Work Phone: [phone] Protein [Mass/Vol] 7.3 g/dL Invalid Interpretation Code 6.4-8.2 [facility] Work Phone: [phone] Microbiology: Culture, Urine on 08-11-2016 CUUR . Invalid Interpretation Code [facility] Work Phone: [phone] GE use only - for [employer] import when terms are not otherwise specified . Invalid Interpretation Code [facility] Work Phone: [phone] Lab Report: Urinalysis, Rout ine (Dipstick)on 08-09-2016 Albumin Ql (U) Negative Invalid Interpretation Code Negative [facility] Work Phone: [phone] Bilirubin Ql (U) Negative Invalid Interpretation Code Negative [facility] Work Phone: [phone] Bilirubin Ql (U) Negative Invalid Interpretation Code Negative [facility] Work Phone: [phone] Clarity (U) Clear Invalid Interpretation Code Clear [facility] Work Phone: [phone] Color (U) Yellow Invalid Interpretation Code Yellow [facility] Work Phone: [phone] Glucose Ql (U) Normal mg/dl Invalid Interpretation Code Normal [facility] Work Phone: [phone] Ketones (U) [Mass/Vol] Negative Invalid Interpretation Code Negative [facility] Work Phone: [phone] Leukocyte esterase Test strip Ql (U) 25 High Negative [facility] Work Phone: [phone] NITRITE UR Negative Invalid Interpretation Code Negative [facility] Work Phone: [phone] Occult Blood, urine Negative Invalid Interpretation Code Negative [facility] Work Phone: [phone] OCCULT BLOOD-UR Negative Invalid Interpretation Code Negative [facility] Work Phone: [phone] pH (U) 6.0 [pH] Invalid Interpretation Code 5.0 - 8.0 [facility] Work Phone: [phone] Specific gravity Refractometry (U) [Rel density] 1.015 Invalid Interpretation Code 1.002-1.030 [facility] Work Phone: [phone] Urine, ketones presence Negative Invalid Interpretation Code Negative [facility] Work Phone: [phone] Urine, pH 6.0 [pH] Invalid Interpretation Code 5.0 - 8.0 [facility] Work Phone: [phone] Urine, protein Negative Invalid Interpretation Code Negative [facility] Work Phone: [phone] UROBILI Normal mg/dl Invalid Interpretation Code Normal [facility] Work Phone: [phone] Lab Report: [facility] 08-08-2016 Albumin/Globulin [Mass ratio] 1.6991519 {ratio} Invalid Interpretation Code 0.9-2.4 [facility] Work Phone: [phone] Albumin/Globulin Ratio 1 {ratio} Invalid Interpretation Code 0.9-2.4 [facility] Work Phone: [phone] Anion gap [Moles/Vol] 3 mmol/L Low 5-15 [facility] Work Phone: [phone] Calcium [Mass/Vol] 9.1 mg/dL Invalid Interpretation Code 8.5-10.1 [facility] Work Phone: [phone] Chloride [Moles/Vol] 104 mmol/L Invalid Interpretation Code 98-107 [facility] Work Phone: [phone] CO2 (BldV) [Partial pressure] 27.0 mmol/L Invalid Interpretation Code 21.0-32.0 [facility] Work Phone: [phone] Creatinine [Mass/Vol] 1.00 mg/dL Invalid Interpretation Code 0.55-1.20 [facility] Work Phone: [phone] GFR/1.73 sq M.predicted among non-blacks MDRD (S/P/Bld) [Vol rate/Area] 58 mL/min/{1.73_m2} Low >60 [facility] Work Phone: [phone] Glomerular Filtration rate 70 mL/min Invalid Interpretation Code >60 [facility] Work Phone: [phone] Glucose [Mass/Vol] 98 mg/dL Invalid Interpretation Code 70-110 [facility] Work Phone: [phone] Potassium [Moles/Vol] 4.0 mmol/L Invalid Interpretation Code 3.5-5.1 [facility] Work Phone: [phone] Sodium [Moles/Vol] 134 mmol/L Low 136-145 [facility] Work Phone: [phone] Urea nitrogen [Mass/Vol] 16 mg/dL Invalid Interpretation Code 7-18 [facility] Work Phone: [phone] Urea nitrogen/Creatinine [Mass ratio] 16.5813185 mg/mg Invalid Interpretation Code 10-20 [facility] Work Phone: [phone] Lab Report: Erythrocyte Sed Rateon 08-08-2016 ESR (Bld) [Velocity] 35 mm/h High 0-[address] [facility] Work Phone: [phone] Replaced Document: (P) CBC W /Diff, Automatedon 08-08-2016 Absolute Neut 5.9 X10 3/UL Invalid Interpretation Code 2.0-7.7 [facility] Work Phone: [phone] Basophils/100 WBC (Bld) 0.3 % Invalid Interpretation Code 0-1 [facility] Work Phone: [phone] Basophils/100 WBC Auto (Bld) 0.3 % Invalid Interpretation Code 0-1 [facility] Work Phone: [phone] Eosinophils/100 leukocytes 1.2 % Invalid Interpretation Code 0-5 [facility] Work Phone: [phone] Eosinophils/100 WBC (Bld) 1.2 % Invalid Interpretation Code 0-5 [facility] Work Phone: [phone] Immature granulocytes/100 WBC (Bld) 0.300 % Invalid Interpretation Code 0.0-0.9 [email or web address] Work Phone: [phone] Lymphocytes 1.46 X10 3/UL Invalid Interpretation Code 0.83-4.51 [facility] Work Phone: [phone] Lymphocytes (Bld) [#/Vol] 1.46 X10 3/UL Invalid Interpretation Code 0.83-4.51 [facility] Work Phone: [phone] Lymphocytes/100 leukocytes 16.9 % Low 19-41 [facility] Work Phone: [phone] Lymphocytes/100 WBC (Bld) 16.9 % Low 19-41 [facility] Work Phone: [phone] Monocytes/100 leukocytes 12.6 % High 0-10 [facility] Work Phone: [phone] Monocytes/100 WBC (Bld) 12.6 % High 0-10 [facility] [employer] Work Phone: [phone] neutrophil count, blood 5.9 X10 3/UL Invalid Interpretation Code 2.0-7.7 [employer] [facility] Work Phone: [phone] Neutrophils/100 WBC (Bld) 68.7 % Invalid Interpretation Code 47-70 [facility] [facility] Work Phone: [phone] Neutrophils/100 WBC Auto (Bld) 68.7 % Invalid Interpretation Code 47-70 [facility] [facility] Work Phone: [phone] Office Visit: [facility] 08-27-20 15 Tobacco use status [facility] Former smoker Invalid Interpretation Code [employer] [facility] Work Phone: [phone] Office Visit: leg woundon Smoking cessation education (procedure) yes Invalid Interpretation Code [facility] [facility] Work Phone: [phone] Tobacco smoking status Never Invalid Interpretation Code [facility] [facility] Work Phone: [phone] EKG Report: [facility] ECG Obse rvationson 05-17-2015 EKG QRS axis -81 deg Invalid Interpretation Code [facility] [facility] Work Phone: [phone] electrocardiogram interpretation Electronic ventricular pacemaker Pacemaker ECG, No further analysis INSUFFICIENT DATA Invalid Interpretation Code [facility] Work Phone: [phone] Heart rate 71 /min Invalid Interpretation Code [facility] Work Phone: [phone] Interpretation Electronic ventricular pacemaker Pacemaker ECG, No further analysis INSUFFICIENT DATA Invalid Interpretation Code [facility] [facility] Work Phone: [phone] P [place] 1 deg Invalid Interpretation Code [facility] Work Phone: [phone] P wave axis, electrocardiogram 1 deg Invalid Interpretation Code [facility] [facility] Work Phone: [phone] TN Interval 0 ms Invalid Interpretation Code [facility] Work Phone: [phone] TN interval, electrocardiogram 0 ms Invalid Interpretation Code [facility] Work Phone: [phone] QRS axis, electrocardiogram -81 deg Invalid Interpretation Code [facility] Work Phone: [phone] QRS Duration 150 ms Invalid Interpretation Code [facility] Work Phone: [phone] QRS duration, electrocardiogram 150 ms Invalid Interpretation Code [facility] Work Phone: [phone] QT Interval new path ms Invalid Interpretation Code [facility] Work Phone: [phone] QT interval, electrocardiogram new path ms Invalid Interpretation Code [facility] Work Phone: [phone] T [place] 64 deg Invalid Interpretation Code [facility] Work Phone: [phone] T wave axis, electrocardiogram 64 deg Invalid Interpretation Code [facility] Work Phone: [phone] Lab Report: BNP,B-Type NATRI URETIC PEPTIDEon 05-17-2015 Natriuretic peptide B (Bld) [Mass/Vol] 218.6 pg/mL High 0-100 [facility] Work Phone: [phone] Lab Report: CBC W/Diff, Auto matedon 05-17-2015 Absolute Lymphocytes 1.44 X10 3/UL Invalid Interpretation Code 0.83-4.51 [facility] Work Phone: [phone] Absolute Neut 3.4 X10 3/UL Invalid Interpretation Code 2.0-7.7 [facility] Work Phone: [phone] Absolute Neutrophil count 3.4 X10 3/UL Invalid Interpretation Code 2.0-7.7 [facility] Work Phone: [phone] Lymphocytes 1.44 X10 3/UL Invalid Interpretation Code 0.83-4.51 [facility] Work Phone: [phone] Lab Report: D-Dimer Quantita tive (DVT/PE)on 05-17-2015 D-dimer quantitative mcg/mL < 0.27 FEU/ug/m Low 0.27-0.49 [facility] Work Phone: [phone] D-DIMER QUANT < 0.27 FEU/ug/m Low 0.27-0.49 [facility] Work Phone: [phone] Lab Report: Lipaseon 015 LIPASE 318 U/L Critically high 70-290 [facility] Work Phone: [phone] Lipase [Catalytic activity/Vol] 318 U/L Critically high 70-290 [facility] Work Phone: [phone] Lab Report: Thyroid Stim Hor tima (TSH)on 11-02-2014 Thyroid stimulating hormone (TSH) 1.12 u[iU]/mL Invalid Interpretation Code 0.358-3.74 [facility] Work Phone: [phone] TSH Qn 1.12 m[IU]/L Invalid Interpretation Code 0.358-3.74 [facility] Work Phone: [phone] Office Visit: [facility] 11-02-19 15 cardiac risk group C Invalid Interpretation Code [facility] Work Phone: [phone] General cardiovascular disease 10Y risk [#] [place]D'Agost[place] N/A Invalid Interpretation Code [facility] Work Phone: [phone] Lab Report: VITDon 4 vitamin D 25-hydroxy, serum [id number] ng/mL Normal Units converted. See lab report for original value. [facility] Work Phone: [phone] VITD [id number] ng/mL Normal Units converted. See lab report for original value. [facility] Work Phone: [phone] Replaced Document: CRPon C reactive protein (CRP) mg/L Normal 0.0-3.0 [facility] Work Phone: [phone] CRP [Mass/Vol] mg/L Normal 0.0-3.0 [facility] Work Phone: [phone] Replaced Document: Bere PHILLIPS Observationson 10-18-2012 Pulse (Heart Rate) 463 ms Invalid Interpretation Code [facility] Work Phone: [phone] QT interval/QT interval (corrected for heart rate), electrocardiogram 463 ms Invalid Interpretation Code [facility] Work Phone: [phone] Lab Report: MGon 10-14-2012 Magnesium [Mass/Vol] 2.1 mg/dL Normal 1.8-2.[address] [facility] Work Phone: [phone] Lab Report: T4on 10-14-2012 T4 [Mass/Vol] 11.3 ug/dL Normal 4.8-13.9 [facility] Work Phone: [phone] Lab Report: PTT - copyon activated partial thromboplastin time 42.6 SECONDS High 24.1-36.2 [facility] Work Phone: [phone] aPTT 42.6 s High 24.1-36.2 [facility] Work Phone: [phone] Lab Report: TROP - copyon Troponin I.cardiac [Mass/Vol] ng/mL Normal <0.06 [facility] Work Phone: [phone] Troponin I.cardiac mass conc ng/mL Normal <0.06 [facility] Work Phone: [phone] Office Visiton 04-30-2012 Appearance (U) cloudy Invalid Interpretation Code [facility] Work Phone: [phone] blood in urine (hemoglobin) by dipstick 2+ Invalid Interpretation Code [facility] Work Phone: [phone] Glucose Test strip (U) [Mass/Vol] Negative Invalid Interpretation Code [facility] Work Phone: [phone] Nitrite Ql (U) Negative Invalid Interpretation Code [facility] Work Phone: [phone] Urine, glucose presence Negative Invalid Interpretation Code [facility] Work Phone: [phone] Urine, nitrite presence Negative Invalid Interpretation Code [facility] Work Phone: [phone] Urine, urobilinogen presence 0.2 Invalid Interpretation Code [facility] Work Phone: [phone] Urobilinogen Ql (U) 0.2 Invalid Interpretation Code [facility] Work Phone: [phone] Office Visiton 10-29-2010 Colonoscopy (procedure) Colonoscopy (procedure) Invalid Interpretation Code [facility] Work Phone: [phone] 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 Todd Carbajal DO Work Phone: [facility] 08-03-2025 11:10-0400 Body height 172.72 cm Teagan Hiro [employer] Work Phone: [facility] 08-03-2025 11:10-0400 Body weight 82.1 kg Teagan Hiro [employer] Work Phone: [facility] 07-31-2025 08:20-0400 Body mass index (BMI) [Ratio] 27.5 kg/m2 Teagan Bosch [employer] Work Phone: [facility] 07-30-2025 11:02-0400 Body temperature 96.2 [degF] Teagan Bosch [employer] Work Phone: [facility] 07-30-2025 11:02-0400 Diastolic blood pressure 52 mm[Hg] Teagan Bosch [employer] Work Phone: [facility] 07-30-2025 11:02-0400 Heart rate 70 /min Teagan Bosch [employer] Work Phone: [facility] 07-30-2025 11:02-0400 Respiratory rate 16 /min Teagan Hiro [employer] Work Phone: [facility] 07-30-2025 11:02-0400 Systolic blood pressure 121 mm[Hg] Teagan Hiro [employer] Work Phone: [facility] 07-30-2025 09:59-0400 SaO2% (BldA) [Mass fraction] 95 % Teagan Hiro [employer] Work Phone: [facility] 07-30-2025 08:37-0400 Body height 172.72 cm Teagan Hiro [employer] Work Phone: [facility] 07-30-2025 08:37-0400 Body mass index (BMI) [Ratio] 28.1 kg/m2 Teagan Hiro [employer] Work Phone: [facility] 07-30-2025 08:37-0400 Body weight 83.91 kg Teagan Hiro [employer] Work Phone: [facility] 07-22-2025 20:00-0400 Body temperature 98.1 [degF] Teagan Hiro [employer] Work Phone: [facility] 07-22-2025 20:00-0400 Diastolic blood pressure 73 mm[Hg] Teagan Hiro [employer] Work Phone: [facility] 07-22-2025 20:00-0400 Heart rate 70 /min Teagan Hiro [employer] Work Phone: [facility] 07-22-2025 20:00-0400 Respiratory rate 18 /min Teagan Hiro [employer] Work Phone: [facility] 07-22-2025 20:00-0400 SaO2% (BldA) [Mass fraction] 99 % Teagan Hiro [employer] Work Phone: [facility] 07-22-2025 20:00-0400 Systolic blood pressure 138 mm[Hg] Teagan Hiro [employer] Work Phone: [facility] 07-22-2025 17:11-0400 Body height 172.72 cm Teaganrafa Bosch [employer] Work Phone: [facility] 07-22-2025 17:11-0400 Body mass index (BMI) [Ratio] 28.1 kg/m2 Teagan Hiro [employer] Work Phone: [facility] 07-22-2025 17:11-0400 Body weight 84.1 kg Teaganrafa Bosch [employer] Work Phone: [facility] 07-20-2025 11:12-0400 Body mass index (BMI) [Ratio] 27.5 kg/m2 Teagan Hiro [employer] Work Phone: [facility] 07-20-2025 11:12-0400 Body weight 82.1 kg Teagan Bosch [employer] Work Phone: [facility] 07-20-2025 11:12-0400 Diastolic blood pressure 78 mm[Hg] Teagan Alegregar [employer] Work Phone: [facility] 07-20-2025 11:12-0400 Heart rate 69 /min Teagan Alegregar [employer] Work Phone: [facility] 07-20-2025 11:12-0400 Respiratory rate 20 /min Teagan Bosch [employer] Work Phone: [facility] 07-20-2025 11:12-0400 SaO2% (BldA) [Mass fraction] 95 % Teagan Hiro [employer] Work Phone: [facility] 07-20-2025 11:12-0400 Systolic blood pressure 129 mm[Hg] Teagan Alegregar [employer] Work Phone: [facility] 06-19-2025 07:55-0400 Body mass index (BMI) [Ratio] 27.8 kg/m2 Teagan Hiro [employer] Work Phone: [facility] 06-19-2025 07:55-0400 Body weight 83 kg Teagan Hiro [employer] Work Phone: [facility] 06-19-2025 07:55-0400 Diastolic blood pressure 68 mm[Hg] Teagan Hiro [employer] Work Phone: [facility] 06-19-2025 07:55-0400 Heart rate 68 /min Teagan Hiro [employer] Work Phone: [facility] 06-19-2025 07:55-0400 SaO2% (BldA) [Mass fraction] 97 % Teagan Hiro [employer] Work Phone: [facility] 06-19-2025 07:55-0400 Systolic blood pressure 147 mm[Hg] Teagan Hiro [employer] Work Phone: [facility] 05-28-2025 09:38-0400 Body height 172.72 cm Teagan Hiro [employer] Work Phone: [facility] 05-28-2025 09:38-0400 Body mass index (BMI) [Ratio] 27.3 kg/m2 Teagan Hiro [employer] Work Phone: [facility] 05-28-2025 09:38-0400 Body temperature 97.4 [degF] Teagan Hiro [employer] Work Phone: [facility] 05-28-2025 09:38-0400 Body weight 81.64 kg Teagan Hiro [employer] Work Phone: [facility] 05-28-2025 09:38-0400 Diastolic blood pressure 66 mm[Hg] Teagan Hiro [employer] Work Phone: [facility] 05-28-2025 09:38-0400 Heart rate 70 /min Teagan Hiro [employer] Work Phone: [facility] 05-28-2025 09:38-0400 Respiratory rate 18 /min Teagan Hiro [employer] Work Phone: [facility] 05-28-2025 09:38-0400 SaO2% (BldA) [Mass fraction] 97 % Teagan Hiro [employer] Work Phone: [facility] 05-28-2025 09:38-0400 Systolic blood pressure 124 mm[Hg] Teagan Hiro [employer] Work Phone: [facility] 05-08-2025 09:45-0400 Body height 172.72 cm Teaganrafa Bosch [employer] Work Phone: [facility] 05-08-2025 09:45-0400 Body weight 88.45 kg Teagan Hiro [employer] Work Phone: [facility] 05-08-2025 09:45-0400 Heart rate 70 /min Teagan Hiro [employer] Work Phone: [facility] 05-08-2025 09:45-0400 SaO2% (BldA) [Mass fraction] 95 % Teaganrafa Bosch [employer] Work Phone: [facility] 04-27-2025 09:00-0400 Body mass index (BMI) [Ratio] 28.1 kg/m2 Teagan Hiro [employer] Work Phone: [facility] 04-27-2025 09:00-0400 Body temperature 97.4 [degF] Teagan Hiro [employer] Work Phone: [facility] 04-27-2025 09:00-0400 Body weight 83.91 kg Teagan Hiro [employer] Work Phone: [facility] 04-27-2025 09:00-0400 Diastolic blood pressure 68 mm[Hg] Teagan Hiro [employer] Work Phone: [facility] 04-27-2025 09:00-0400 Heart rate 70 /min Teagan Hiro [employer] Work Phone: [facility] 04-27-2025 09:00-0400 Respiratory rate 20 /min Teagan Hiro [employer] Work Phone: [facility] 04-27-2025 09:00-0400 SaO2% (BldA) [Mass fraction] 97 % Teagan Hiro [employer] Work Phone: [facility] 04-27-2025 09:00-0400 Systolic blood pressure 124 mm[Hg] Teagan Hiro [employer] Work Phone: [facility] 03-19-2025 06:41-0400 Body height 172.72 cm Teagan Hiro [employer] Work Phone: [facility] 03-19-2025 06:41-0400 Body mass index (BMI) [Ratio] 29.3 kg/m2 Teagan Hiro [employer] Work Phone: [facility] 03-19-2025 06:41-0400 Body weight 87.54 kg Teagan Hiro [employer] Work Phone: [facility] 03-19-2025 06:41-0400 Diastolic blood pressure 80 mm[Hg] Teagan Hiro [employer] Work Phone: [facility] 03-19-2025 06:41-0400 Heart rate 70 /min Teagan Hiro [employer] Work Phone: [facility] 03-19-2025 06:41-0400 Respiratory rate 18 /min Teagan Hiro [employer] Work Phone: [facility] 03-19-2025 06:41-0400 SaO2% (BldA) [Mass fraction] 98 % Teagan Hiro [employer] Work Phone: [facility] 03-19-2025 06:41-0400 Systolic blood pressure 133 mm[Hg] Teagan Hiro [employer] Work Phone: [facility] 08-21-2023 13:19-0400 Body mass index (BMI) [Ratio] 28.4 kg/m2 Dr. Todd Carbajal Work Phone: [facility] 08-21-2023 13:19-0400 Body temperature 97 [degF] Dr. Todd Carbajal Work Phone: [facility] 08-21-2023 13:19-0400 Diastolic blood pressure 66 mm[Hg] Dr. Todd Carbajal Work Phone: [facility] 08-21-2023 13:19-0400 Heart rate 72 /min Dr. Todd Carbajal Work Phone: [facility] 08-21-2023 13:19-0400 Respiratory rate 16 /min Dr. Todd Carbajal Work Phone: [facility] 08-21-2023 13:19-0400 Systolic blood pressure 106 mm[Hg] Dr. Todd Carbajal Work Phone: [facility] 08-17-2023 13:11-0400 Body mass index (BMI) [Ratio] 28.4 kg/m2 Dr. Todd Carbajal Work Phone: [facility] 08-17-2023 13:11-0400 Body temperature 97.5 [degF] Dr. Todd Carbajal Work Phone: [facility] 08-17-2023 13:11-0400 Diastolic blood pressure 67 mm[Hg] Dr. Todd Carbajal Work Phone: [facility] 08-17-2023 13:11-0400 Heart rate 69 /min Dr. Todd Carbajal Work Phone: [facility] 08-17-2023 13:11-0400 Respiratory rate 16 /min Dr. Todd Carbajal Work Phone: [facility] 08-17-2023 13:11-0400 Systolic blood pressure 130 mm[Hg] Dr. Todd Carbajal Work Phone: [facility] 08-14-2023 11:42-0400 Body height 172.[address] Todd Carbajal Work Phone: [facility] 08-14-2023 11:42-0400 Body mass index (BMI) [Ratio] 28.7 kg/m2 Dr. Todd Carbajal Work Phone: [facility] 08-14-2023 11:42-0400 Body weight 85.[address] Todd Carbajal Work Phone: [facility] 08-14-2023 11:42-0400 Diastolic blood pressure 80 mm[Hg] Dr. Todd Carbajal Work Phone: [facility] 08-14-2023 11:42-0400 Heart rate 70 /min Dr. Todd Carbajal Work Phone: [facility] 08-14-2023 11:42-0400 Respiratory rate 18 /min Dr. Todd Carbajal Work Phone: [facility] 08-14-2023 11:42-0400 Systolic blood pressure 152 mm[Hg] Dr. Todd Carbajal Work Phone: [facility] 08-07-2023 09:10-0400 Body weight 84.[address] Todd Carbajal Work Phone: [facility] 08-06-2023 05:57-0400 Body mass index (BMI) [Ratio] 28.1 kg/m2 Dr. Todd Carbajal Work Phone: [facility] 08-06-2023 05:57-0400 Body temperature 97.1 [degF] Dr. Todd Carbajal Work Phone: [facility] 08-06-2023 05:57-0400 Body weight 83.[address] Todd Carbajal Work Phone: [facility] 08-06-2023 05:57-0400 Diastolic blood pressure 73 mm[Hg] Dr. Todd Carbajal Work Phone: [facility] 08-06-2023 05:57-0400 Heart rate 71 /min Dr. Todd Carbajal Work Phone: [facility] 08-06-2023 05:57-0400 Respiratory rate 18 /min Dr. Todd Carbajal Work Phone: [facility] 08-06-2023 05:57-0400 SaO2% (BldA) [Mass fraction] 92 % Dr. Todd Carbajal Work Phone: [facility] 08-06-2023 05:57-0400 Systolic blood pressure 132 mm[Hg] Dr. Todd Carbajal Work Phone: [facility] 03-22-2023 11:23-0400 Body height 172.[address] Todd Carbajal Work Phone: [facility] 03-22-2023 11:18-0400 Body mass index (BMI) [Ratio] 28.8 kg/m2 Dr. Todd Carbajal Work Phone: [facility] 03-22-2023 11:18-0400 Body temperature 97.3 [degF] Dr. Todd Carbajal Work Phone: [facility] 03-22-2023 11:18-0400 Body weight 86.[address] Todd Carbajal Work Phone: [facility] 03-22-2023 11:18-0400 Diastolic blood pressure 72 mm[Hg] Dr. Todd Carbajal Work Phone: [facility] 03-22-2023 11:18-0400 Heart rate 73 /min Dr. Todd Carbajal Work Phone: [facility] 03-22-2023 11:18-0400 Respiratory rate 18 /min Dr. Todd Carbajal Work Phone: [facility] 03-22-2023 11:18-0400 SaO2% (BldA) [Mass fraction] 96 % Dr. Todd Carbajal Work Phone: [facility] 03-22-2023 11:18-0400 Systolic blood pressure 118 mm[Hg] Dr. Todd Carbajal Work Phone: [facility] 03-15-2023 15:33-0400 Body weight 84.[address] Todd Carbajal Work Phone: [facility] 03-15-2023 15:33-0400 Diastolic blood pressure 77 mm[Hg] Dr. Todd Carbajal Work Phone: [facility] 03-15-2023 15:33-0400 Heart rate 69 /min Dr. Todd Carbajal Work Phone: [facility] 03-15-2023 15:33-0400 Respiratory rate 20 /min Dr. Todd Carbajal Work Phone: [facility] 03-15-2023 15:33-0400 Systolic blood pressure 140 mm[Hg] Dr. Todd Carbajal Work Phone: [facility] 09-19-2022 13:40-0500 Body height 172.[address] Todd Carbajal Work Phone: [facility] Work Phone: 09-19-2022 13:40-0500 Body mass index (BMI) [Ratio] 28.1 kg/m2 Dr. Todd Carbajal Work Phone: [facility] Work Phone: 09-19-2022 13:40-0500 Body weight 83.[address] Todd Carbajal Work Phone: [facility] Work Phone: 09-19-2022 13:40-0500 Diastolic blood pressure 78 mm[Hg] Dr. Todd Carbajal Work Phone: [facility] Work Phone: 09-19-2022 13:40-0500 Heart rate 70 /min Dr. Todd Carbajal Work Phone: [facility] Work Phone: 09-19-2022 13:40-0500 SaO2% (BldA) [Mass fraction] 97 % Dr. Todd Carbajal Work Phone: [facility] Work Phone: 09-19-2022 13:40-0500 Systolic blood pressure 147 mm[Hg] Dr. Todd Carbajal Work Phone: [facility] Work Phone: 08-29-2022 08:40-0400 Body mass index (BMI) [Ratio] 29.3 kg/m2 Dr. Todd Carbajal Work Phone: [facility] Work Phone: 08-29-2022 08:40-0400 Body temperature 95.4 [degF] Dr. Todd Carbajal Work Phone: [facility] Work Phone: 08-29-2022 08:40-0400 Body weight 87.[address] Todd Carbajal Work Phone: [facility] Work Phone: 08-29-2022 08:40-0400 Diastolic blood pressure 78 mm[Hg] Dr. Todd Carbajal Work Phone: [facility] Work Phone: 08-29-2022 08:40-0400 Heart rate 70 /min Dr. Todd Carbajal Work Phone: [facility] Work Phone: 08-29-2022 08:40-0400 Respiratory rate 18 /min Dr. Todd Carbajal Work Phone: [facility] Work Phone: 08-29-2022 08:40-0400 SaO2% (BldA) [Mass fraction] 98 % Dr. Todd Carbajal Work Phone: [facility] Work Phone: 08-29-2022 08:40-0400 Systolic blood pressure 134 mm[Hg] Dr. Todd Carbajal Work Phone: [facility] Work Phone: 08-17-2022 08:15-0400 Body height 172.[address] Todd Carbajal Work Phone: [facility] Work Phone: 08-17-2022 08:15-0400 Body weight 90.[address] Todd Carbajal Work Phone: [facility] Work Phone: 08-17-2022 08:15-0400 Heart rate 70 /min Dr. Todd Carbajal Work Phone: [facility] Work Phone: 08-17-2022 08:15-0400 SaO2% (BldA) [Mass fraction] 98 % Dr. Todd Carbajal Work Phone: [facility] Work Phone: 07-31-2022 08:15-0400 Body mass index (BMI) [Ratio] 30.2 kg/m2 Dr. Todd Carbajal Work Phone: [facility] Work Phone: 07-31-2022 08:15-0400 Body temperature 96.2 [degF] Dr. Todd Carbajal Work Phone: [facility] Work Phone: 07-31-2022 08:15-0400 Body weight 89.[address] Todd Carbajal Work Phone: [facility] Work Phone: 07-31-2022 08:15-0400 Diastolic blood pressure 82 mm[Hg] Dr. Todd Carbajal Work Phone: [facility] Work Phone: 07-31-2022 08:15-0400 Heart rate 70 /min Dr. Todd Cabrajal Work Phone: [facility] Work Phone: 07-31-2022 08:15-0400 Respiratory rate 18 /min Dr. Todd Carbajal Work Phone: [facility] Work Phone: 07-31-2022 08:15-0400 SaO2% (BldA) [Mass fraction] 97 % Dr. Todd Carbajal Work Phone: [facility] Work Phone: 07-31-2022 08:15-0400 Systolic blood pressure 141 mm[Hg] Dr. Todd Carbajal Work Phone: [facility] Work Phone: 07-27-2022 08:51-0400 Body temperature 98 [degF] Dr. Todd Carbajal Work Phone: [facility] Work Phone: 07-27-2022 08:51-0400 Diastolic blood pressure 72 mm[Hg] Dr. Todd Carbajal Work Phone: [facility] Work Phone: 07-27-2022 08:51-0400 Heart rate 70 /min Dr. Todd Carbajal Work Phone: [facility] Work Phone: 07-27-2022 08:51-0400 Respiratory rate 14 /min Dr. Todd Carbajal Work Phone: [facility] Work Phone: 07-27-2022 08:51-0400 SaO2% (BldA) [Mass fraction] 99 % Dr. Todd Carbajal Work Phone: [facility] Work Phone: 07-27-2022 08:51-0400 Systolic blood pressure 134 mm[Hg] Dr. Todd Carbajal Work Phone: [facility] Work Phone: 06-07-2022 05:01-0400 Diastolic blood pressure 76 mm[Hg] Dr. Todd Carbajal Work Phone: [facility] Work Phone: 06-07-2022 05:01-0400 Heart rate 77 /min Dr. Todd Carbajal Work Phone: [facility] Work Phone: 06-07-2022 05:01-0400 Respiratory rate 18 /min Dr. Todd Carbajal Work Phone: [facility] Work Phone: 06-07-2022 05:01-0400 SaO2% (BldA) [Mass fraction] 95 % Dr. Todd Carbajal Work Phone: [facility] Work Phone: 06-07-2022 05:01-0400 Systolic blood pressure 129 mm[Hg] Dr. Todd Carbajal Work Phone: [facility] Work Phone: 06-07-2022 01:49-0400 Diastolic blood pressure 88 mm[Hg] Dr. Todd Carbajal Work Phone: [facility] Work Phone: 06-07-2022 01:49-0400 Heart rate 71 /min Dr. Todd Carbajal Work Phone: [facility] Work Phone: 06-07-2022 01:49-0400 Respiratory rate 18 /min Dr. Todd Carbajal Work Phone: [facility] Work Phone: 06-07-2022 01:49-0400 SaO2% (BldA) [Mass fraction] 96 % Dr. Todd Carbajal Work Phone: [facility] Work Phone: 06-07-2022 01:49-0400 Systolic blood pressure 161 mm[Hg] Dr. Todd Carbajal Work Phone: [facility] Work Phone: 06-06-2022 22:13-0400 Body height 167.[address] Todd Carbajal Work Phone: [facility] Work Phone: 06-06-2022 22:13-0400 Body mass index (BMI) [Ratio] 32.5 kg/m2 Dr. Todd Carbajal Work Phone: [facility] Work Phone: 06-06-2022 22:13-0400 Body temperature 97.5 [degF] Dr. Todd Carbajal Work Phone: [facility] Work Phone: 06-06-2022 22:13-0400 Body weight 91.[address] Todd Carbajal Work Phone: [facility] Work Phone: 04-28-2022 11:11-0400 Body height 172.[address] Todd Carbajal Work Phone: [facility] Work Phone: 04-28-2022 11:11-0400 Body mass index (BMI) [Ratio] 30.1 kg/m2 Dr. Todd Carbajal Work Phone: [facility] Work Phone: 04-28-2022 11:11-0400 Body weight 89.[address] Todd Carbajal Work Phone: [facility] Work Phone: 04-28-2022 11:11-0400 Diastolic blood pressure 55 mm[Hg] Dr. Todd Carbajal Work Phone: [facility] Work Phone: 04-28-2022 11:11-0400 Heart rate 71 /min Dr. Todd Carbajal Work Phone: [facility] Work Phone: 04-28-2022 11:11-0400 Respiratory rate 16 /min Dr. Todd Carbajal Work Phone: [facility] Work Phone: 04-28-2022 11:11-0400 Systolic blood pressure 104 mm[Hg] Dr. Todd Carbajal Work Phone: [facility] Work Phone: 04-28-2022 00:46-0400 Body mass index (BMI) [Ratio] 30.4 kg/m2 Dr. Todd Carbajal Work Phone: [facility] Work Phone: 04-28-2022 00:46-0400 Body temperature 97.3 [degF] Dr. Todd Carbajal Work Phone: [facility] Work Phone: 04-28-2022 00:46-0400 Body weight 90.[address] Todd Carbajal Work Phone: [facility] Work Phone: 04-28-2022 00:46-0400 Diastolic blood pressure 73 mm[Hg] Dr. Todd Carbajal Work Phone: [facility] Work Phone: 04-28-2022 00:46-0400 Heart rate 69 /min Dr. Todd Carbajal Work Phone: [facility] Work Phone: 04-28-2022 00:46-0400 Systolic blood pressure 135 mm[Hg] Dr. Todd Carbajal Work Phone: [facility] Work Phone: 04-04-2022 09:20-0400 Body height 172.[address] Todd Carbajal Work Phone: [facility] Work Phone: 04-04-2022 09:20-0400 Body mass index (BMI) [Ratio] 30.4 kg/m2 Dr. Todd Carbajal Work Phone: [facility] Work Phone: 04-04-2022 09:20-0400 Body temperature 97.3 [degF] Dr. Todd Carbajal Work Phone: [facility] Work Phone: 04-04-2022 09:20-0400 Body weight 90.[address] Todd Carbajal Work Phone: [facility] Work Phone: 04-04-2022 09:20-0400 Diastolic blood pressure 73 mm[Hg] Dr. Todd Carbajal Work Phone: [facility] Work Phone: 04-04-2022 09:20-0400 Heart rate 69 /min Dr. Todd Carbajal Work Phone: [facility] Work Phone: 04-04-2022 09:20-0400 Systolic blood pressure 135 mm[Hg] Dr. Todd Carbajal Work Phone: [facility] Work Phone: 03-28-2022 11:24-0400 Body temperature 97.8 [degF] Dr. Todd Carbajal Work Phone: [facility] Work Phone: 03-28-2022 11:24-0400 Diastolic blood pressure 60 mm[Hg] Dr. Todd Carbajal Work Phone: [facility] Work Phone: 03-28-2022 11:24-0400 Heart rate 82 /min Dr. Todd Carbajal Work Phone: [facility] Work Phone: 03-28-2022 11:24-0400 Respiratory rate 16 /min Dr. Todd Carbajal Work Phone: [facility] Work Phone: 03-28-2022 11:24-0400 SaO2% (BldA) [Mass fraction] 98 % Dr. Todd Carbajal Work Phone: [facility] Work Phone: 03-28-2022 11:24-0400 Systolic blood pressure 122 mm[Hg] Dr. Todd Carbajal Work Phone: [facility] Work Phone: 02-14-2022 10:25-0400 Body mass index (BMI) [Ratio] 30.4 kg/m2 Dr. Todd Carbajal Work Phone: [facility] Work Phone: 02-14-2022 10:25-0400 Body weight 87.[address] Todd Carbajal Work Phone: [facility] Work Phone: 02-14-2022 10:25-0400 Diastolic blood pressure 72 mm[Hg] Dr. Todd Carbajal Work Phone: [facility] Work Phone: 02-14-2022 10:25-0400 Heart rate 69 /min Dr. Todd Carbajal Work Phone: [facility] Work Phone: 02-14-2022 10:25-0400 Respiratory rate 18 /min Dr. Todd Carbajal Work Phone: [facility] Work Phone: 02-14-2022 10:25-0400 SaO2% (BldA) [Mass fraction] 97 % Dr. Todd Carbajal Work Phone: [facility] Work Phone: 02-14-2022 10:25-0400 Systolic blood pressure 119 mm[Hg] Dr. Todd Carbajal Work Phone: [facility] Work Phone: 02-14-2022 10:25-0400 Body height 170.[address] Todd Carbajal Work Phone: [facility] Work Phone: 02-14-2022 10:25-0400 Body mass index (BMI) [Ratio] 30.4 kg/m2 Dr. Todd Carbajal Work Phone: [facility] Work Phone: 02-14-2022 10:25-0400 Body weight 87.[address] Todd Carbajal Work Phone: [facility] Work Phone: 02-14-2022 10:25-0400 Diastolic blood pressure 72 mm[Hg] Dr. Todd aCrbajal Work Phone: [facility] Work Phone: 02-14-2022 10:25-0400 Heart rate 69 /min Dr. Todd Carbajal Work Phone: [facility] Work Phone: 02-14-2022 10:25-0400 Respiratory rate 18 /min Dr. Todd Carbajal Work Phone: [facility] Work Phone: 02-14-2022 10:25-0400 SaO2% (BldA) [Mass fraction] 97 % Dr. Todd Carbajal Work Phone: [facility] Work Phone: 02-14-2022 10:25-0400 Systolic blood pressure 119 mm[Hg] Dr. Todd Carbajal Work Phone: [facility] Work Phone: 02-08-2022 12:47-0400 Body temperature 97.8 [degF] Dr. Todd Carbajal Work Phone: [facility] Work Phone: 02-08-2022 12:47-0400 Diastolic blood pressure 58 mm[Hg] Dr. Todd Carbajal Work Phone: [facility] Work Phone: 02-08-2022 12:47-0400 Heart rate 59 /min Dr. Todd Carbajal Work Phone: [facility] Work Phone: 02-08-2022 12:47-0400 Respiratory rate 18 /min Dr. Todd Carbajal Work Phone: [facility] Work Phone: 02-08-2022 12:47-0400 SaO2% (BldA) [Mass fraction] 97 % Dr. Todd Carbajal Work Phone: [facility] Work Phone: 02-08-2022 12:47-0400 Systolic blood pressure 126 mm[Hg] Dr. Todd Carbajal Work Phone: [facility] Work Phone: 02-08-2022 12:47-0400 Body temperature 97.8 [degF] Dr. Todd Carbajal Work Phone: [facility] Work Phone: 02-08-2022 12:47-0400 Diastolic blood pressure 58 mm[Hg] Dr. Todd Carbajal Work Phone: [facility] Work Phone: 02-08-2022 12:47-0400 Heart rate 59 /min Dr. Todd Carbajal Work Phone: [facility] Work Phone: 02-08-2022 12:47-0400 Respiratory rate 18 /min Dr. Todd Carbajal Work Phone: [facility] Work Phone: 02-08-2022 12:47-0400 SaO2% (BldA) [Mass fraction] 97 % Dr. Todd Carbajal Work Phone: [facility] Work Phone: 02-08-2022 12:47-0400 Systolic blood pressure 126 mm[Hg] Dr. Todd Carbajal Work Phone: [facility] Work Phone: 02-02-2022 10:41-0400 Diastolic blood pressure 78 mm[Hg] Dr. Todd Carbajal Work Phone: [facility] Work Phone: 02-02-2022 10:41-0400 Systolic blood pressure 136 mm[Hg] Dr. Todd Carbajal Work Phone: [facility] Work Phone: 02-02-2022 10:41-0400 Diastolic blood pressure 78 mm[Hg] Dr. Todd Carbajal Work Phone: [facility] Work Phone: 02-02-2022 10:41-0400 Systolic blood pressure 136 mm[Hg] Dr. Todd Carbajal Work Phone: [facility] Work Phone: 02-02-2022 09:46-0400 Body mass index (BMI) [Ratio] 29.7 kg/m2 Dr. Todd Carbajal Work Phone: [facility] Work Phone: 02-02-2022 09:46-0400 Body temperature 98 [degF] Dr. Todd Carbajal Work Phone: [facility] Work Phone: 02-02-2022 09:46-0400 Body weight 86.[address] Todd Carbajal Work Phone: [facility] Work Phone: 02-02-2022 09:46-0400 Heart rate 80 /min Dr. Todd Carbajal Work Phone: [facility] Work Phone: 02-02-2022 09:46-0400 Respiratory rate 16 /min Dr. Todd Carbajal Work Phone: [facility] Work Phone: 02-02-2022 09:46-0400 SaO2% (BldA) [Mass fraction] 98 % Dr. Todd Carbajal Work Phone: [facility] Work Phone: 02-02-2022 09:46-0400 Body mass index (BMI) [Ratio] 29.7 kg/m2 Dr. Todd Carbajal Work Phone: [facility] Work Phone: 02-02-2022 09:46-0400 Body temperature 98 [degF] Dr. Todd Carbajal Work Phone: [facility] Work Phone: 02-02-2022 09:46-0400 Body weight 86.[address] Todd Carbajal Work Phone: [facility] Work Phone: 02-02-2022 09:46-0400 Heart rate 80 /min Dr. Todd Carbajal Work Phone: [facility] Work Phone: 02-02-2022 09:46-0400 Respiratory rate 16 /min Dr. Todd Carbajal Work Phone: [facility] Work Phone: 02-02-2022 09:46-0400 SaO2% (BldA) [Mass fraction] 98 % Dr. Todd Carbajal Work Phone: [facility] Work Phone: 09-03-2017 10:31-0500 BMI (Body Mass Index) 32.08 kg/m2 Yasmin Ashley [facility] Work Phone: 09-03-2017 10:31-0500 Body weight 95.71 kg Darlyn Hubbard RN [facility] Work Phone: 09-03-2017 10:31-0500 BP Diastolic 72 mm[Hg] [facility] Work Phone: 09-03-2017 10:31-0500 BP Systolic 110 mm[Hg] [facility] Work Phone: 09-03-2017 10:31-0500 Height 172.72 cm [facility] Work Phone: 09-03-2017 10:31-0500 Pulse (Heart Rate) 88 /min [facility] Work Phone: 09-03-2017 10:31-0500 Respiratory Rate 20 /min Yasmin [facility] Work Phone: 09-03-2017 10:31-0500 Weight 95.71 kg Yas[facility] Work Phone: 07-12-2017 15:23-0400 Body height 172.72 cm Gilmer Holley MD Work Phone: [facility] Work Phone: 07-12-2017 15:23-0400 Body mass index (BMI) [Ratio] 31.93 kg/m2 Gilmer Holley MD Work Phone: [facility] Work Phone: 07-12-2017 15:23-0400 Body temperature 97.81 [degF] Gilmer Holley MD Work Phone: [facility] Work Phone: 07-12-2017 15:23-0400 Body temperature 97.8 [degF] Gilmer Holley MD Work Phone: [facility] Work Phone: 07-12-2017 15:23-0400 Body weight 95.26 kg Gilmer Holley MD Work Phone: [facility] Work Phone: 07-12-2017 15:23-0400 Body weight 95.25 kg Gilmer Holley MD Work Phone: [facility] Work Phone: 07-12-2017 15:23-0400 Diastolic blood pressure 72 mm[Hg] Gilmer Holley MD Work Phone: [facility] Work Phone: 07-12-2017 15:23-0400 Heart rate 76 /min Gilmer Holley MD Work Phone: [facility] Work Phone: 07-12-2017 15:23-0400 Respiratory rate 18 /min Gilmer Holley MD Work Phone: [facility] Work Phone: 07-12-2017 15:23-0400 Systolic blood pressure 109 mm[Hg] Gilmer Holley MD Work Phone: [facility] Work Phone: 07-12-2017 15:23-0400 Weight 95.25 kg Darlyn Hubbard RN [facility] Work Phone: 07-12-2017 15:23-0400 Weight 95.26 kg MARGI [facility] Work Phone: 07-03-2017 09:55-0400 Body height 172.72 cm Yasmin [facility] Work Phone: 07-03-2017 09:55-0400 Body mass index (BMI) [Ratio] 32.3 kg/m2 Yasmin Mercedesby [facility] Work Phone: 07-03-2017 09:55-0400 Body weight 96.36 kg Yasmin Mercedesby [facility] Work Phone: 07-03-2017 09:55-0400 Diastolic blood pressure 76 mm[Hg] Yasmin Mercedesby [facility] Work Phone: 07-03-2017 09:55-0400 Heart rate 84 /min Yasmin Mercedesby [facility] Work Phone: 07-03-2017 09:55-0400 Respiratory rate 20 /min [facility] Work Phone: 07-03-2017 09:55-0400 Systolic blood pressure 100 mm[Hg] Yasmin [facility] Work Phone: 02-27-2017 08:58-0400 Body height 172.72 cm Gerda Perkins RN [facility] Work Phone: 02-27-2017 08:58-0400 Body mass index (BMI) [Ratio] 32.23 kg/m2 Gerda Perkins RN [facility] Work Phone: 02-27-2017 08:58-0400 Body weight 96.16 kg Gerda Perkins RN [facility] Work Phone: 02-27-2017 08:58-0400 Diastolic blood pressure 60 mm[Hg] Gerda Perkins RN [facility] Work Phone: 02-27-2017 08:58-0400 Heart rate 72 /min Gerda Perkins RN [facility] Work Phone: 02-27-2017 08:58-0400 Respiratory rate 20 /min Gerda Perkins RN [facility] Work Phone: 02-27-2017 08:58-0400 Systolic blood pressure 110 mm[Hg] Gerda Perkins RN [facility] Work Phone: 08-30-2016 08:10-0400 Body mass index (BMI) [Ratio] 32.38 kg/m2 Pricilla Hernandez RN [facility] Work Phone: 08-30-2016 08:10-0400 Body surface area Derived from formula 2.1 m2 [facility] Work Phone: 08-30-2016 08:10-0400 Body weight 96.62 kg [facility] Work Phone: 08-30-2016 08:10-0400 Diastolic blood pressure 70 mm[Hg] [facility] Work Phone: 08-30-2016 08:10-0400 Heart rate 80 /min [facility] Work Phone: 08-30-2016 08:10-0400 Respiratory rate 20 /min [facility] Work Phone: 08-30-2016 08:10-0400 Systolic blood pressure 100 mm[Hg] [facility] Work Phone: 07-28-2015 10:57-0400 Body temperature 98.6 [degF] [facility] Work Phone: 07-28-2015 10:57-0400 SaO2% (BldA) [Mass fraction] 97 % Pricilla Hernandez RN [facility] Work Phone: 06-20-2012 09:36-0400 Diastolic blood pressure 77 mm[Hg] [facility] Work Phone: 06-20-2012 09:36-0400 Systolic blood pressure 156 mm[Hg] Pricilla Hernandez RN [facility] Work Phone: 08-20-2009 08:34-0400 Body weight 95.57 kg [facility] Work Phone: 07-30-2009 08:34-0400 Body height 172.72 cm [facility] Work Phone: Encounters Encounter Date Encounter Type Care Provider Facility Start: 09-11-2025 ambulatory Teagan Hiro Facility:[facility] Start: 08-17-2025 ambulatory SANDRO RUIZ Facility :[facility] Start: 08-10-2025 End: 08-10-[address] Todd Carbajal DO Work Phone: -[facility] Start: 08-10-2025 End: 08-10-[address] Elijah West MD -[facility] Work Phone: Start: 08-03-2025 End: 08-03-2025 Admission to same day surgery center Dr. Elijah West MD -[facility] Technician/Special Procedures Work Phone: Start: 08-03-2025 End: 08-03-2025 ambulatory Teagan Bosch [facility] Work Phone: -[facility] Technician/Special Procedures Start: 07-31-2025 ambulatory [facility] Facility:[facility] Start: 07-31-2025 Registered Referred Maura Maki NP-C -[facility] Start: 07-30-2025 End: 07-30-2025 Patient encounter procedure Maura Maki [facility] -Medical Out Work Phone: Start: 07-30-2025 End: 07-30-2025 ambulatory Teagan Hiro [facility] Work Phone: -[facility] Start: 07-28-2025 End: 07-28-2025 ambulatory Teaganrafa Bosch [facility] Work Phone: -[facility] Start: 07-28-2025 End: 07-28-[address] Drake Farah MD -[facility] Work Phone: Start: 07-28-2025 [facility] Facility:[facility] Start: 07-28-2025 Registered Referred Drake Farah MD -[facility] Start: 07-22-2025 End: 07-27-2025 Evaluation and management of [facility] Facility[facility] Start: 07-22-2025 End: 07-22-2025 Emergency department patient visit Dr. Cj Dumont MD -Emergency Department Work Phone: Start: 07-20-2025 End: 07-20-2025 Patient encounter procedure Deonna Hernandez -[facility] Work Phone: Start: 07-20-2025 End: 07-20-2025 ambulatory Teagan Bosch [facility] Work Phone: -[facility] Start: 07-17-2025 ambulatory Teagan Bosch Facility:[facility] Start: 07-17-2025 Registered Recurring Kassandra Avalos PA -Physical Therapy Work Phone: Start: 07-13-2025 End: 07-13-2025 ambulatory Teagan Hiro [facility] Work Phone: -[facility] Start: 07-13-2025 End: 07-13-[address] Elijah West MD -[facility] Work Phone: Start: 07-07-2025 Registered Recurring Kassandra Avalos PA -Physical Therapy Work Phone: Start: 06-23-2025 Registered Recurring Kassandra Avalos PA -Physical Therapy Work Phone: Start: 06-22-2025 Non-patient / Non-visit Bailey porter [facility] -[facility] Work Phone: Start: 06-22-2025 ambulatory Bailey Topete [facility] Facili ty:[facility] Start: 06-22-2025 Non-patient / Non-visit Dr. Jeanna OLIVIA -[facility] Start: 06-22-2025 End: 06-22-2025 ambulatory Teagan Bosch [facility] Work Phone: -Cardiovascular Services Start: 06-22-2025 End: 06-22-2025 Patient encounter procedure Bailey Topete [facility] -Cardiovascular Services Work Phone: Start: 06-22-2025 End: 06-22-2025 ambulatory Bailey Topete NP Facility:[facility] Start: 06-19-2025 End: 06-19-2025 Patient encounter procedure Bailey Topete [facility] -[facility] Work Phone: Start: 06-19-2025 End: 06-19-2025 ambulatory Teagan Bocsh [facility] Work Phone: -[facility] Start: 06-17-2025 Registered Recurring Kassandra Avalos PA -Physical Therapy Work Phone: Start: 05-28-2025 End: 05-28-2025 Patient encounter procedure Zeina Bran NP-C -[facility] Work Phone: Start: 05-28-2025 End: 05-28-2025 ambulatory Teagan Bosch [facility] Work Phone: -[facility] Start: 05-12-2025 End: 05-12-2025 ambulatory Teagan Bosch [facility] Work Phone: -[facility] Start: 05-12-2025 End: 05-12-2025 Patient encounter procedure Teagan Bosch [facility] -[facility] Work Phone: Start: 05-12-2025 ambulatory Zeina Bran [facility] Fac ility:[facility] Start: 05-12-2025 Non-patient / Non-visit Dr. Quinton douglas DO -[facility] Start: 05-12-2025 End: 05-12-2025 ambulatory Teagan Hiro Facility:[facility] Start: 05-08-2025 End: 05-08-2025 ambulatory Teagan Bosch [facility] Work Phone: -Pulmonary Services/Neurology Start: 05-08-2025 End: 05-08-2025 Patient encounter procedure Zeina Bran [facility] -Pulmonary Services/Neurology Work Phone: Start: 05-08-2025 End: 05-08-2025 ambulatory Teagan Bosch Facility:[facility] Start: 04-27-2025 End: 04-27-2025 Patient encounter procedure Zeina Bran NP-C -[facility] Work Phone: Start: 04-27-2025 End: 04-27-2025 ambulatory Teagan Bosch [facility] Work Phone: -[facility] Start: 04-13-2025 End: 04-13-2025 ambulatory Teagan Bosch [facility] Work Phone: -[facility] Start: 04-13-2025 End: 04-13-[address] Elijah West MD -[facility] Work Phone: Start: 03-19-2025 End: 03-19-2025 Patient encounter procedure Bailey CALIX -[facility] Work Phone: Start: 03-19-2025 End: 03-19-2025 ambulatory [facility] Facility:[facility] Start: 01-12-2025 End: 01-12-2025 ambulatory [facility] Facility:[facility] Start: 01-12-2025 End: 01-12-[address] Elijah West MD -[facility] Work Phone: Start: 10-13-2024 End: 10-13-2024 ambulatory [facility] Facility:[facility] Start: 08-22-2023 End: 08-22-[address] Todd Carbajal Work Phone: [facility] Work Phone: Start: 08-22-2023 End: 08-22-[address] Todd Carbajal Work Phone: [facility] Work Phone: Start: 08-21-2023 End: 08-28-[address] Todd Carbajal Work Phone: [facility] Work Phone: Start: 08-21-2023 End: 08-28-[address] Todd Carbajal Work Phone: [facility] Work Phone: Start: 08-21-[address] Todd Carbajal Work Phone: [facility] Work Phone: Start: 08-17-[address] Todd Carbajal Work Phone: [facility] Work Phone: Start: 08-15-2023 End: 08-15-[address] Todd Carbajal Work Phone: [facility] Work Phone: Start: 08-15-2023 End: 08-15-[address] Todd Carbajal Work Phone: [facility] Work Phone: Start: 08-14-2023 End: 08-14-[address] Todd Carbajal Work Phone: [facility] Work Phone: Start: 08-06-2023 End: 08-06-[address] [facility] Work Phone: Start: 03-28-2023 End: 03-28-[address] Todd Carbajal Work Phone: [facility] Start: 03-22-2023 End: 03-22-[address] [facility] Start: 03-20-2023 End: 03-20-[address] Todd Carbajal Work Phone: [facility] Work Phone: Start: 03-20-2023 End: 03-20-[address] Todd Carbajal Work Phone: [facility] Start: 03-15-2023 End: 03-15-[address] Todd Carbajal Work Phone: [facility] Start: 12-20-2022 End: 12-20-[address] Todd Carbajal Work Phone: [facility] Start: 09-20-2022 End: 09-20-[address] Todd Carbajal Work Phone: [facility] Work Phone: Start: 09-20-2022 End: 09-20-[address] Todd Carbajal Work Phone: [facility] Start: 09-19-2022 End: 09-19-[address] Todd Carbajal Work Phone: [facility] Start: 09-13-2022 End: 09-13-[address] Todd Carbajal Work Phone: [facility] Start: 08-29-2022 End: 08-29-[address] Todd Carbajal Work Phone: [facility] Start: 08-23-2022 Non-patient / Non-visit Dr. Garrick Carbajal Work Phone: [facility] Start: 08-23-2022 End: 08-23-[address] Todd Carbajal [facility] Start: 08-17-2022 Non-patient / Non-visit Dr. Garrick Carbajal Work Phone: [facility] Start: 08-17-2022 End: 08-17-[address] Todd Carbajal Work Phone: [facility] Work Phone: Start: 08-17-2022 End: 08-17-[address] Todd Carbajal [facility] Start: 07-31-2022 End: 07-31-[address] Todd Carbajal Work Phone: [facility] Start: 07-27-2022 End: 07-27-[address] Todd Carbajal Work Phone: [facility] Start: 06-06-2022 End: 06-07-2022 Emergency department patient visit Dr. Todd Carbajal [facility] Start: 06-02-2022 End: 06-02-[address] Todd Carbajal Work Phone: [facility] Start: 05-22-2022 Non-patient / Non-visit Dr. Garrick Carbajal Work Phone: [facility] Start: 05-22-2022 End: 05-22-[address] Todd [facility]al [facility] Start: 05-04-[address] Todd [facility]al [facility] Start: 04-28-2022 End: 04-28-[address] Todd Carbajal Work Phone: [facility] Start: 04-04-2022 End: 04-27-[address] Todd [facility]al [facility] Start: 03-28-2022 End: 03-28-[address] Todd Carbajal Work Phone: [facility] Start: 03-17-2022 Non-patient / Non-visit Dr. Garrick Carbajal Work Phone: [facility] Start: 03-17-2022 End: 03-17-[address] Todd [facility]ajal [facility] Start: 03-15-2022 End: 03-15-[address] Todd Carbajal Work Phone: [facility] Start: 02-22-2022 End: 02-22-[address] Todd Carbajal Work Phone: [facility] Start: 02-14-2022 End: 02-14-[address] Todd Carbajal Work Phone: [facility] Start: 02-08-2022 End: 02-08-[address] Todd Carbajal Work Phone: [facility] Start: 02-02-2022 End: 02-02-[address] Todd Carbajal Work Phone: [facility] Start: 06-24-2019 End: 06-24-2019 Telephone encounter Bessy Yu [facility] [place] Comment on above: Appointment Procedures Date Procedure Procedure Detail Performing Clinician Start: 07-22-2025 Antibody screen TODD MELTON Comment on above: Order Comment: Speci men Type: BLOOD SPECIMENOrdering Facility: [facility] Address: [address] [place] [address] Performed By: #### T SCR ####[facility] BLOOD BANKCLIA [id number] [place] [address] [place] Start: 07-22-2025 Plain chest X-ray Jaylene Bosch [facility] Work Phone: Start: 07-22-2025 Plain radiography of pelvis Teagan Alegregar [facility] Work Phone: Start: 07-22-2025 Plain X-ray of shoulder Teagan Hiro [facility] Work Phone: Start: 07-22-2025 CT of face Teagan Crockett ar [facility] Work Phone: Start: 07-22-2025 CT cervical spine wi thout contrast Teagan Bosch [facility] Work Phone: Start: 07-22-2025 CT of head without contrast Teagan Bosch [facility] Work Phone: Start: 07-20-2025 Urnls dip stick/tabl et reagent auto microscopy Teagan Bosch [facility] Work Phone: Start: 07-20-2025 Radiologic exam ches t 2 views Teagan Bosch [facility] Work Phone: Start: 05-12-2025 X-ray of lumbosacral spine Teagan Bosch [facility] Work Phone: Start: 03-20-2023 Screening mammography Nimesh Carbajal Work Phone: Start: 06-06-2022 Plain chest X-ray Dr. Sally Carbajal Work Phone: Start: 06-06-2022 CT of head without contrast Dr. Todd Carbajal Work Phone: Start: 03-17-2022 Cardiovascular stres s test using pharmacologic stress agent Dr. Todd Carbajal Work Phone: Start: 03-15-2022 Screening mammography Nimesh Carbajal Work Phone: Start: 02-02-2022 Radiologic examinati on of knee Dr. Todd Carbajal Work Phone: Start: 08-28-2019 History of coronary artery bypass grafting H/O coronary artery bypass surgery Bailey Topete NP-[facility] Comment on above: Redo sternotomy-CABG X 2: PHILLIPS to LAD, radial T graft off the LIAM to the principal obtuse marginal and ligation of left atrial appendage 08/28/19 Start: 09-03-2017 End: 09-03-2017 KWAN Lopez PA-C Work Phone: Start: 09-03-2017 End: 09-03-2017 Follow Up Appt 6 months Ingrid corona PA-C Work Phone: Start: 09-03-2017 End: 09-03-2017 KWAN Lopez PA-C Work Phone: Start: 09-03-2017 End: 09-03-2017 Follow Up Appt 6 months Ingrid corona PA-C Work Phone: Start: 08-20-2017 End: 08-24-2017 Follow Up Appt 3 months Ingrid corona PA-C Work Phone: Start: 08-20-2017 End: 08-24-2017 Pacer Clinic Ingrid Lopez PA-C Work Phone: Start: 08-20-2017 End: 08-20-2017 Program eval implantable in persn dual ld pacer Ingrid Lopez PA-C Work Phone: Start: 08-20-2017 End: 08-24-2017 Follow Up Appt 3 months Ingrid corona PA-C Work Phone: Start: 08-20-2017 End: 08-24-2017 Pacer Clinic Ingrid Lopez PA-C Work Phone: Start: 08-20-2017 End: 08-20-2017 Program eval implantable in persn dual ld pacer Ingrid Lopez PA-C Work Phone: Start: 07-13-2017 End: 07-30-2017 *Hepatic Function Panel Sally Hodge Start: 07-13-2017 End: 07-30-2017 Lipid 1996 panel - Serum or Plasma Elijah West MD Start: 07-13-2017 End: 07-30-2017 Hepatic function 2000 panel - Serum or Plasma Elijah West MD Start: 07-13-2017 End: 07-30-2017 Lipid 1996 panel - Serum or Plasma Elijah West MD Start: 07-12-2017 End: 07-12-2017 Alcoholism counseling Gilmer Holley MD Work Phone: Start: 07-12-2017 End: 07-12-2017 Dietary management education, guidance, and counseling Gilmer Holley MD Work Phone: Start: 07-12-2017 End: 07-12-2017 Documentation of current medications Gilmer Holley MD Work Phone: Start: 07-03-2017 End: 07-03-2017 Follow Up Appt Other Ingrid alonso PA-C Work Phone: Start: 07-03-2017 End: 07-03-2017 Documentation of current medications Yasmin Ashley Start: 07-03-2017 End: 07-03-2017 Follow Up Appt Other Ingrid alonso PA-C Work Phone: Start: 05-08-2017 End: 07-03-2017 Follow Up Appt 3 months Ingrid corona PA-C Work Phone: Start: 05-08-2017 End: 07-03-2017 Pacer Clinic Ingrid Lopez PA-C Work Phone: Start: 05-08-2017 End: 05-08-2017 Program eval implantable in persn dual ld pacer Ingrid Lopez PA-C Work Phone: Start: 05-08-2017 End: 07-03-2017 Follow Up Appt 3 months Ingrid corona PA-C Work Phone: Start: 05-08-2017 End: 07-03-2017 Pacer Clinic Ingrid Lopez PA-C Work Phone: Start: 05-08-2017 End: 05-08-2017 Program eval implantable in persn dual ld pacer Ingrid Lopez PA-C Work Phone: Start: 04-02-2017 End: 04-02-2017 *BMP Elijah West MD Start: 04-02-2017 End: 04-02-2017 INR in Platelet poor plasma by Coagulation assay Elijah West MD Start: 04-02-2017 End: 04-02-2017 Basic metabolic 2000 panel - Serum or Plasma Elijah West MD Start: 04-02-2017 End: 04-02-2017 INR in Platelet poor plasma by Coagulation assay Elijah West MD Start: 02-27-2017 End: 02-27-2017 *BMP Elijah West MD Start: 02-27-2017 End: 02-27-2017 CBC W Auto Differential panel - Blood Elijah West MD Start: 02-27-2017 End: 03-07-2017 Echocardiography Elijah West MD Start: 02-27-2017 End: 02-27-2017 Follow Up Appt 6 months Sally Hodge Start: 02-27-2017 End: 02-27-2017 MMSally West MD Start: 02-27-2017 End: 02-27-2017 Natriuretic peptide B [Mass/volume] in Blood Elijah West MD Start: 02-27-2017 End: 02-27-2017 Documentation of current medications Gerda Perkins RN Start: 02-27-2017 End: 02-27-2017 Basic metabolic 2000 panel - Serum or Plasma Elijah West MD Start: 02-27-2017 End: 02-27-2017 CBC W Auto Differential panel - Blood Elijah West MD Start: 02-27-2017 End: 03-07-2017 Echocardiography Elijah West MD Start: 02-27-2017 End: 02-27-2017 Follow Up Appt 6 months Sally Hodge Start: 02-27-2017 End: 02-27-2017 MAIRA West MD Start: 02-27-2017 End: 02-27-2017 Natriuretic peptide B [Mass/volume] in Blood Elijah West MD Start: 01-30-2017 End: 07-03-2017 Follow Up Appt 3 months Sally Hodge Start: 01-30-2017 End: 07-03-2017 Pacer Clinic Elijah West MD Start: 01-30-2017 End: 01-30-2017 Program eval implantable in persn dual ld pacer Elijah West MD Start: 01-30-2017 End: 07-03-2017 Follow Up Appt 3 months Sally Hodge Start: 01-30-2017 End: 07-03-2017 Pacer Clinic Elijah West MD Start: 01-30-2017 End: 01-30-2017 Program eval implantable in persn dual ld pacer Elijah West MD Start: 12-04-2016 End: 01-12-2017 *Hepatic Function Panel Kristal Yañez NP Work Phone: Start: 12-04-2016 End: 01-12-2017 Lipid 1996 panel - Serum or Plasma Kristal Yañez NP Work Phone: Start: 12-04-2016 End: 01-12-2017 Hepatic function 2000 panel - Serum or Plasma Kristal Yañez [employer] Work Phone: Start: 12-04-2016 End: 01-12-2017 Lipid 1996 panel - Serum or Plasma Kristal Yañez NP Work Phone: Start: 10-31-2016 End: 03-07-2017 Follow Up Appt 3 months Sally Hodge Start: 10-31-2016 End: 12-28-2016 INR in Platelet poor plasma by Coagulation assay Elijah West MD Start: 10-31-2016 End: 03-07-2017 Pacer Clinic Elijah West MD Start: 10-31-2016 End: 10-31-2016 Program eval implantable in persn dual ld prakashr Elijah West MD Start: 10-31-2016 End: 03-07-2017 Follow Up Appt 3 months Sally Hodge Start: 10-31-2016 End: 12-28-2016 INR in Platelet poor plasma by Coagulation assay Elijah West MD Start: 10-31-2016 End: 03-07-2017 Pacer Clinic Elijah West MD Start: 10-31-2016 End: 10-31-2016 Program eval implantable in persn dual ld prakashr Elijah West MD Start: 10-17-2016 End: 02-01-2017 INR in Platelet poor plasma by Coagulation assay Elijah West MD Start: 10-17-2016 End: 02-01-2017 INR in Platelet poor plasma by Coagulation assay Elijah West MD Start: 08-31-2016 End: 09-06-2016 Nuclear stress test -Gayatri West MD Start: 08-31-2016 End: 09-06-2016 Nuclear stress test -Gayatri West MD Start: 08-30-2016 End: 08-30-2016 SLUNK SKINNER Kristal Yañez NP Work Phone: Start: 08-30-2016 End: 08-30-2016 Follow Up Appt 6 months Kristal Yañez NP Work Phone: Start: 08-30-2016 End: 08-30-2016 Documentation of current medications Pricilla Hernandez RN Start: 08-30-2016 End: 08-30-2016 SLUNK SKINNER Kristal Yañez NP Work Phone: Start: 08-30-2016 End: 08-30-2016 Follow Up Appt 6 months Kristal Yañez [employer] Work Phone: Start: 08-16-2016 End: 08-16-2016 Follow Up Appt 3 months Ingrid corona PA-C Work Phone: Start: 08-16-2016 End: 08-16-2016 Pacer Clinic Ingrid Lopez PA-C Work Phone: Start: 08-16-2016 End: 08-16-2016 Program eval implantable in persn dual ld pacer Ingrid Lopez PA-C Work Phone: Start: 08-16-2016 End: 08-16-2016 Follow Up Appt 3 months Ingrid corona PA-C Work Phone: Start: 08-16-2016 End: 08-16-2016 Pacer Clinic Ingrid Lopez PA-C Work Phone: Start: 08-16-2016 End: 08-16-2016 Program eval implantable in persn dual ld pacer Ingrid Lopez PA-C Work Phone: Start: 08-09-2016 End: 08-09-2016 Urinalysis Pricilla Hernandez RN Start: 08-08-2016 End: 08-09-2016 *Hepatic Function Panel Sally Hodge Start: 08-08-2016 End: 08-09-2016 Lipid 1996 panel - Serum or Plasma Elijah West MD Start: 08-08-2016 End: 08-09-2016 Hepatic function 2000 panel - Serum or Plasma Elijah West MD Start: 08-08-2016 End: 08-09-2016 Lipid 1996 panel - Serum or Plasma Elijah West MD Start: 05-08-2016 End: 08-16-2016 Follow Up Appt 3 months Ingrid corona PA-C Work Phone: Start: 05-08-2016 End: 08-16-2016 Pacer Clinic Ingrid Lopez PA-C Work Phone: Start: 05-08-2016 End: 05-08-2016 Program eval implantable in persn dual ld pacer Ingrid Lopez PA-C Work Phone: Start: 05-08-2016 End: 08-16-2016 Follow Up Appt 3 months Ingrid corona PA-C Work Phone: Start: 05-08-2016 End: 08-16-2016 Pacer Clinic Ingrid Lopez PA-C Work Phone: Start: 05-08-2016 End: 05-08-2016 Program eval implantable in persn dual ld pacer Ingrid Lopez PA-C Work Phone: Start: 02-29-2016 End: 02-29-2016 *BMP Elijah West MD Start: 02-29-2016 End: 02-29-2016 Follow Up Appt 6 months Sally Hodge Start: 02-29-2016 End: 02-29-2016 MAIRA West MD Start: 02-29-2016 End: 02-29-2016 Basic metabolic 2000 panel - Serum or Plasma Elijah West MD Start: 02-29-2016 End: 02-29-2016 Follow Up Appt 6 months Sally Hodge Start: 02-29-2016 End: 02-29-2016 MAIRA West MD Start: 02-02-2016 End: 08-16-2016 Follow Up Appt 3 months Sally Hodge Start: 02-02-2016 End: 08-16-2016 Pacer Clinic Elijah West MD Start: 02-02-2016 End: 02-03-2016 Program eval implantable in persn dual ld pacer Elijah West MD Start: 02-02-2016 End: 08-16-2016 Follow Up Appt 3 months Sally Hodge Start: 02-02-2016 End: 08-16-2016 Pacer Clinic Elijah West MD Start: 02-02-2016 End: 02-03-2016 Program eval implantable in persn dual ld pacer Elijah West MD Start: 01-19-2016 End: 02-07-2016 *Hepatic Function Panel Sally Hodge Start: 01-19-2016 End: 02-07-2016 Lipid 1996 panel - Serum or Plasma Elijah West MD Start: 01-19-2016 End: 02-07-2016 Hepatic function 2000 panel - Serum or Plasma Elijah West MD Start: 01-19-2016 End: 02-07-2016 Lipid 1996 panel - Serum or Plasma Elijah West MD Start: 11-04-2015 End: 03-07-2017 Mammogram, screening Todd A Jessica DO Work Phone: Start: 11-04-2015 End: 03-07-2017 Mammogram, screening Todd A Jessica DO Work Phone: Start: 11-04-2015 End: 11-08-2015 Screening for malignant neoplasm of breast Pricilla Hernandez RN Start: 10-27-2015 End: 08-16-2016 Follow Up Appt 3 months Sally Hodge Start: 10-27-2015 End: 08-16-2016 Pacer Clinic Elijah West MD Start: 10-27-2015 End: 10-27-2015 Program eval implantable in persn dual ld pacer Elijah West MD Start: 10-27-2015 End: 08-16-2016 Follow Up Appt 3 months Sally Hodge Start: 10-27-2015 End: 08-16-2016 Pacer Clinic Elijah West MD Start: 10-27-2015 End: 10-27-2015 Program eval implantable in persn dual ld pacer Elijah West MD Start: 08-27-2015 End: 08-28-2015 Colonoscopy Ingrid Lopez PA-C Work Phone: Start: 08-27-2015 End: 08-27-2015 SLUNK SKINNER Ingrid Lopez PA-C Work Phone: Start: 08-27-2015 End: 08-27-2015 Follow Up Appt 6 months Ingrid corona PA-C Work Phone: Start: 08-27-2015 End: 08-28-2015 Colonoscopy Ingrid Lopez PA-C Work Phone: Start: 08-27-2015 End: 08-27-2015 SLUNK SKINNER Ingrid Lopez PA-C Work Phone: Start: 08-27-2015 End: 08-27-2015 Follow Up Appt 6 months Ingrid corona PA-C Work Phone: Start: 07-28-2015 End: 07-28-2015 Alcoholism counseling Pricilla Hernandez RN Start: 07-28-2015 End: 07-28-2015 Dietary management education, guidance, and counseling Pricilla Hernandez RN Start: 07-28-2015 End: 07-28-2015 Smoking cessation education Kusum Galarza Start: 07-21-2015 End: 08-18-2015 Follow Up Appt 3 months Sally Hodge Start: 07-21-2015 End: 08-18-2015 Pacer Clinic Elijah Wset MD Start: 07-21-2015 End: 07-21-2015 Program eval implantable in persn dual ld pacer Elijah West MD Start: 07-21-2015 End: 08-18-2015 Follow Up Appt 3 months Sally Hodge Start: 07-21-2015 End: 08-18-2015 Pacer Clinic Eliajh West MD Start: 07-21-2015 End: 07-21-2015 Program eval implantable in persn dual ld pacer Elijah West MD Start: 07-20-2015 End: 07-20-2015 *Hepatic Function Panel Sally Hodge Start: 07-20-2015 End: 07-20-2015 Lipid 1996 panel - Serum or Plasma Elijah West MD Start: 07-20-2015 End: 07-20-2015 Hepatic function 2000 panel - Serum or Plasma Elijah West MD Start: 07-20-2015 End: 07-20-2015 Lipid 1996 panel - Serum or Plasma Elijah West MD Start: 06-04-2015 End: 03-07-2017 Surgery Referral Todd Carbajal DO Work Phone: Start: 06-04-2015 Screening for malign ant neoplasm of colon Pricilla Hernandez RN Start: 06-04-2015 End: 03-07-2017 Surgery Referral Todd Carbajal DO Work Phone: Start: 05-26-2015 End: 03-07-2017 Pulmonary Referral Todd Carbajal DO Work Phone: Start: 05-26-2015 End: 03-07-2017 Pulmonary Referral Todd Echols Jessica DO Work Phone: Start: 05-17-2015 End: 05-18-2015 *BMP Todd Echols Jessica DO Work Phone: Start: 05-17-2015 End: 05-18-2015 *CBC with Differential Todd Beavers O Work Phone: Start: 05-17-2015 End: 05-18-2015 Chest x-ray Todd Carbajal DO Work Phone: Start: 05-17-2015 End: 05-18-2015 Fibrin D-dimer FEU [Mass/volume] in Platelet poor plasma Todd Echols Jessica DO Work Phone: Start: 05-17-2015 End: 05-18-2015 Natriuretic peptide B [Mass/volume] in Blood Todd Echols Jessica DO Work Phone: Start: 05-17-2015 End: 05-18-2015 Basic metabolic 2000 panel - Serum or Plasma Todd Dislaman DO Work Phone: Start: 05-17-2015 End: 05-18-2015 CBC W Auto Differential panel - Blood Todd Echols Jessica DO Work Phone: Start: 05-17-2015 End: 05-18-2015 Chest x-ray Todd Carbajal DO Work Phone: Start: 05-17-2015 End: 05-18-2015 Fibrin D-dimer FEU [Mass/volume] in Platelet poor plasma Todd Echols Jessica DO Work Phone: Start: 05-17-2015 End: 05-18-2015 Natriuretic peptide B [Mass/volume] in Blood Todd Echols Jessica DO Work Phone: Start: 04-14-2015 End: 08-18-2015 Follow Up Appt 3 months Sally Hodge Start: 04-14-2015 End: 08-18-2015 Pacer Clinic Elijah West MD Start: 04-14-2015 End: 04-15-2015 Program eval implantable in persn dual ld pacer Elijah West MD Start: 04-14-2015 End: 08-18-2015 Follow Up Appt 3 months Sally Hodge Start: 04-14-2015 End: 08-18-2015 Pacer Clinic Elijah West MD Start: 04-14-2015 End: 04-15-2015 Program eval implantable in persn dual ld pacer Elijah West MD Start: 02-23-2015 End: 02-23-2015 Follow Up Appt 6 months Sally Hodge Start: 02-23-2015 End: 02-23-2015 MMSally West MD Start: 02-23-2015 End: 03-01-2015 Nuclear stress test -Gayatri West MD Start: 02-23-2015 End: 02-23-2015 Follow Up Appt 6 months Sally Hodge Start: 02-23-2015 End: 02-23-2015 MAIRA West MD Start: 02-23-2015 End: 03-01-2015 Nuclear stress test -Gayatri West MD Start: 02-01-2015 End: 02-01-2015 *CBC with Differential Luis Eduardo Sanders MD Start: 02-01-2015 End: 02-01-2015 *CMP Complete Metabolic Panel Luis Eduardo Sanders MD Start: 02-01-2015 End: 02-01-2015 Lipase [Enzymatic activity/volume] in Serum or Plasma Luis Eduardo Sanders MD Start: 02-01-2015 End: 03-07-2017 Us abdominal real time w/image limited Luis Eduardo Sanders MD Start: 02-01-2015 End: 02-01-2015 *CMP Complete Metabolic Panel Luis Eduardo Sanders MD Start: 02-01-2015 End: 02-01-2015 CBC W Auto Differential panel - Blood Luis Eduardo Sanders MD Start: 02-01-2015 End: 02-01-2015 Lipase [Enzymatic activity/volume] in Serum or Plasma Luis Eduardo Sanders MD Start: 02-01-2015 End: 03-07-2017 Us abdominal real time w/image limited Luis Eduardo Sanders MD Start: 01-13-2015 End: 03-07-2017 Chest x-ray Luis Eduardo Sanders MD Start: 01-13-2015 End: 03-07-2017 Removal impacted cerumen instrumentation gladys Sanders MD Start: 01-13-2015 End: 03-07-2017 Chest x-ray Luis Eduardo Sanders MD Start: 01-13-2015 End: 03-07-2017 Removal impacted cerumen instrumentation gladys Sanders MD Start: 01-04-2015 End: 08-18-2015 Follow Up Appt 3 months Ingrid corona PA-C Work Phone: Start: 01-04-2015 End: 08-18-2015 Pacer Clinic Ingrid Lopez PA-C Work Phone: Start: 01-04-2015 End: 01-04-2015 Program eval implantable in persn dual ld pacer Ingrid Lopez PA-C Work Phone: Start: 01-04-2015 End: 08-18-2015 Follow Up Appt 3 months Ingrid corona PA-C Work Phone: Start: 01-04-2015 End: 08-18-2015 Pacer Clinic Ingrid Lopez PA-C Work Phone: Start: 01-04-2015 End: 01-04-2015 Program eval implantable in persn dual ld pacer Ingrid Lopez PA-C Work Phone: Start: 12-27-2014 End: 01-25-2015 *Hepatic Function Panel Portia Sally Garcia Start: 12-27-2014 End: 01-25-2015 Lipid 1996 panel - Serum or Plasma Elijah West MD Start: 12-27-2014 End: 01-25-2015 Hepatic function 2000 panel - Serum or Plasma Elijah West MD Start: 12-27-2014 End: 01-25-2015 Lipid 1996 panel - Serum or Plasma Elijahestefanía West MD Start: 11-17-2014 End: 11-17-2014 SLUNK SKINNER Ingrid Lopez PA-C Work Phone: Start: 11-17-2014 End: 11-18-2014 Documentation of current medications Ingrid Lopez PA-C Work Phone: Start: 11-17-2014 End: 11-17-2014 Follow Up Appt Other Ingrid alonso PA-C Work Phone: Start: 11-17-2014 End: 11-17-2014 SLUNK SKINNER Ingrid Lopez PA-C Work Phone: Start: 11-17-2014 End: 11-18-2014 Documentation of current medications Ingrid Lopez PA-C Work Phone: Start: 11-17-2014 End: 11-17-2014 Follow Up Appt Other Ingrid alonso PA-C Work Phone: Start: 11-02-2014 End: 08-18-2015 SLUNK SKINNER Ingrid Lopez PA-C Work Phone: Start: 11-02-2014 End: 08-18-2015 Echocardiography Ingrid Lopez PA-C Work Phone: Start: 11-02-2014 End: 08-18-2015 Follow Up Appt Other Ingrid alonso PA-C Work Phone: Start: 11-02-2014 End: 08-18-2015 Natriuretic peptide B [Mass/volume] in Blood Ingrid Lopez PA-C Work Phone: Start: 11-02-2014 End: 08-18-2015 Nuclear stress test -Lexiscan Ingrid Lopez PA-C Work Phone: Start: 11-02-2014 End: 08-18-2015 Thyrotropin [Units/volume] in Serum or Plasma Ingrid Lopez PA-C Work Phone: Start: 11-02-2014 End: 08-18-2015 SLUNK SKINNER Ingrid Lopez PA-C Work Phone: Start: 11-02-2014 End: 08-18-2015 Echocardiography Ingrid Lopez PA-C Work Phone: Start: 11-02-2014 End: 08-18-2015 Follow Up Appt Other Ingrid alonso PA-C Work Phone: Start: 11-02-2014 End: 08-18-2015 Natriuretic peptide B [Mass/volume] in Blood Ingrid Lopez PA-C Work Phone: Start: 11-02-2014 End: 08-18-2015 Nuclear stress test -Lexiscan Ingrid Lopez PA-C Work Phone: Start: 11-02-2014 End: 08-18-2015 Thyrotropin [Units/volume] in Serum or Plasma Ingrid Lopez PA-C Work Phone: Start: 10-28-2014 End: 11-17-2014 *Hepatic Function Panel Ingrid corona PA-C Work Phone: Start: 10-28-2014 End: 11-17-2014 Lipid 1996 panel - Serum or Plasma Ingrid Lopez PA-C Work Phone: Start: 10-28-2014 End: 11-17-2014 Hepatic function 2000 panel - Serum or Plasma Ingrid Lopez PA-C Work Phone: Start: 10-28-2014 End: 11-17-2014 Lipid 1996 panel - Serum or Plasma Ingrid Lopez PA-C Work Phone: Start: 10-19-2014 End: 11-11-2014 Mammogram, Screening, both breasts Luis Eduardo Sanders MD Start: 10-19-2014 End: 11-11-2014 Mammogram, Screening, both breasts Luis Eduardo Sanders MD Start: 10-02-2014 End: 11-17-2014 Follow Up Appt 3 months Ingrid corona PA-C Work Phone: Start: 10-02-2014 End: 11-17-2014 Pacer Clinic Ingrid Lopez PA-C Work Phone: Start: 10-02-2014 End: 10-02-2014 Program eval implantable in persn dual ld pacer Ingrid Lopez PA-C Work Phone: Start: 10-02-2014 End: 11-17-2014 Follow Up Appt 3 months Ingrid corona PA-C Work Phone: Start: 10-02-2014 End: 11-17-2014 Pacer Clinic Ingrid Lopez PA-C Work Phone: Start: 10-02-2014 End: 10-02-2014 Program eval implantable in persn dual ld pacer Ingrid Lopez PA-C Work Phone: Start: 08-12-2014 End: 08-12-2014 SLUNK SKINNER Ingrid Lopez PA-C Work Phone: Start: 08-12-2014 End: 08-13-2014 Documentation of current medications Ingrid Lopez PA-C Work Phone: Start: 08-12-2014 End: 08-12-2014 Follow Up Appt 6 months Ingrid corona PA-C Work Phone: Start: 08-12-2014 End: 08-12-2014 SLUNK SKINNER Ingrid Lopez PA-C Work Phone: Start: 08-12-2014 End: 08-13-2014 Documentation of current medications Ingrid Lopez PA-C Work Phone: Start: 08-12-2014 End: 08-12-2014 Follow Up Appt 6 months Ingrid corona PA-C Work Phone: Start: 06-30-2014 End: 07-30-2014 Follow Up Appt 3 months Sally Hodge Start: 06-30-2014 End: 07-30-2014 Pacer Clinic Elijah West MD Start: 06-30-2014 End: 06-30-2014 Program eval implantable in persn dual ld pacer Elijah West MD Start: 06-30-2014 End: 07-30-2014 Follow Up Appt 3 months Sally Hodge Start: 06-30-2014 End: 07-30-2014 Pacer Clinic Elijah West MD Start: 06-30-2014 End: 06-30-2014 Program eval implantable in persn dual ld pacer Elijah West MD Start: 05-29-2014 End: 06-24-2014 *Hepatic Function Panel Sally Hodge Start: 05-29-2014 End: 06-24-2014 Lipid 1996 panel - Serum or Plasma Elijah West MD Start: 05-29-2014 End: 06-24-2014 Hepatic function 2000 panel - Serum or Plasma Elijah West MD Start: 05-29-2014 End: 06-24-2014 Lipid 1996 panel - Serum or Plasma Elijah West MD Start: 04-01-2014 End: 07-30-2014 Follow Up Appt 3 months Sally Hodge Start: 04-01-2014 End: 07-30-2014 Pacer Clinic Elijah West MD Start: 04-01-2014 End: 04-01-2014 Program eval implantable in persn dual ld pacer Elijah West MD Start: 04-01-2014 End: 07-30-2014 Follow Up Appt 3 months Sally Hodge Start: 04-01-2014 End: 07-30-2014 Pacer Clinic Elijah West MD Start: 04-01-2014 End: 04-01-2014 Program eval implantable in persn dual ld pacer Elijah West MD Start: 03-09-2014 End: 03-26-2014 Thyrotropin [Units/volume] in Serum or Plasma Luis Eduardo Sanders MD Start: 03-09-2014 End: 03-26-2014 Thyrotropin [Units/volume] in Serum or Plasma Luis Eduardo Sanders MD Start: 03-02-2014 End: 03-04-2014 Thyrotropin [Units/volume] in Serum or Plasma Luis Eduardo Sanders MD Start: 03-02-2014 End: 03-04-2014 Thyrotropin [Units/volume] in Serum or Plasma Luis Eduardo Sanders MD Start: 02-21-2014 End: 06-24-2014 *Hepatic Function Panel Sally Hodge Start: 02-21-2014 End: 06-24-2014 Lipid 1996 panel - Serum or Plasma Elijah West MD Start: 02-21-2014 End: 06-24-2014 Hepatic function 2000 panel - Serum or Plasma Elijah West MD Start: 02-21-2014 End: 06-24-2014 Lipid 1996 panel - Serum or Plasma Elijah West MD Start: 02-10-2014 End: 02-10-2014 Follow Up Appt 6 months Sally Hodge Start: 02-10-2014 End: 02-10-2014 MAIRA West MD Start: 02-10-2014 End: 02-10-2014 Follow Up Appt 6 months Sally Hodge Start: 02-10-2014 End: 02-10-2014 MAIRA West MD Start: 12-23-2013 End: 06-24-2014 Follow Up Appt 3 months Sally Hodge Start: 12-23-2013 End: 06-24-2014 Pacer Clinic Elijah West MD Start: 12-23-2013 End: 12-23-2013 Program eval implantable in persn dual ld pacer Elijah West MD Start: 12-23-2013 End: 06-24-2014 Follow Up Appt 3 months Sally Hodge Start: 12-23-2013 End: 06-24-2014 Pacer Clinic Elijah West MD Start: 12-23-2013 End: 12-23-2013 Program eval implantable in persn dual ld pacer Elijah West MD Start: 12-02-2013 End: 12-23-2013 *Hepatic Function Panel Sally Hodge Start: 12-02-2013 End: 12-23-2013 Lipid 1996 panel - Serum or Plasma Elijah West MD Start: 12-02-2013 End: 12-23-2013 Hepatic function 2000 panel - Serum or Plasma Elijah West MD Start: 12-02-2013 End: 12-23-2013 Lipid 1996 panel - Serum or Plasma Elijah West MD Start: 11-06-2013 End: 12-23-2013 Ambulatory BP Monitor 24 HR Ingrid Noonan PA-C Work Phone: Start: 11-06-2013 End: 11-06-2013 Follow Up Appt Other Ingrid alonso PA-C Work Phone: Start: 11-06-2013 End: 12-23-2013 Ambulatory BP Monitor 24 HR Ingrid Noonan PA-C Work Phone: Start: 11-06-2013 End: 11-06-2013 Follow Up Appt Other Ingrid alonso PA-C Work Phone: Start: 10-14-2013 End: 11-27-2013 *BMP Luis Eduardo Sanders MD Start: 10-14-2013 End: 11-27-2013 Basic metabolic 2000 panel - Serum or Plasma Luis Eduardo Sanders MD Start: 09-19-2013 End: 10-13-2013 Mammogram, Screening, both breasts Luis Eduardo Sanders MD Start: 09-19-2013 End: 10-13-2013 Mammogram, Screening, both breasts Luis Eduardo Sanders MD Start: 09-17-2013 End: 12-23-2013 Follow Up Appt 3 months Sally Hodge Start: 09-17-2013 End: 12-23-2013 Pacer Clinic Elijah West MD Start: 09-17-2013 End: 09-17-2013 Program eval implantable in persn dual ld pacer Elijah West MD Start: 09-17-2013 End: 12-23-2013 Follow Up Appt 3 months Sally Hodge Start: 09-17-2013 End: 12-23-2013 Pacer Clinic Elijah West MD Start: 09-17-2013 End: 09-17-2013 Program eval implantable in persn dual ld pacer Elijah West MD Start: 08-13-2013 End: 12-23-2013 INR in Platelet poor plasma by Coagulation assay Elijah West MD Start: 08-13-2013 End: 12-23-2013 INR in Platelet poor plasma by Coagulation assay Elijah West MD Start: 08-05-2013 End: 12-23-2013 Chest x-ray Ingrid Lopez PA-C Work Phone: Start: 08-05-2013 End: 08-05-2013 Follow Up Appt Other Ingrid alonso PA-C Work Phone: Start: 08-05-2013 End: 12-23-2013 Natriuretic peptide B [Mass/volume] in Blood Ingrid Lopez PA-C Work Phone: Start: 08-05-2013 End: 12-23-2013 Chest x-ray Ingrid Lopez PA-C Work Phone: Start: 08-05-2013 End: 08-05-2013 Follow Up Appt Other Ingrid alonso PA-C Work Phone: Start: 08-05-2013 End: 12-23-2013 Natriuretic peptide B [Mass/volume] in Blood Ingrid Lopez PA-C Work Phone: Start: 06-17-2013 End: 08-05-2013 Follow Up Appt 3 months Sally Hodge Start: 06-17-2013 End: 08-05-2013 Pacer Clinic Elijah West MD Start: 06-17-2013 End: 06-17-2013 Program eval implantable in persn dual ld pacer Elijah West MD Start: 06-17-2013 End: 08-05-2013 Follow Up Appt 3 months Sally Hodge Start: 06-17-2013 End: 08-05-2013 Pacer Clinic Elijah West MD Start: 06-17-2013 End: 06-17-2013 Program eval implantable in persn dual ld pacer Elijah West MD Start: 05-26-2013 End: 05-26-2013 *Hepatic Function Panel Sally Hodge Start: 05-26-2013 End: 05-26-2013 Lipid 1996 panel - Serum or Plasma Elijah West MD Start: 05-26-2013 End: 05-26-2013 Hepatic function 2000 panel - Serum or Plasma Elijah West MD Start: 05-26-2013 End: 05-26-2013 Lipid 1996 panel - Serum or Plasma Elijah West MD Start: 04-16-2013 End: 04-16-2013 *Hepatic Function Panel Adiel Azul MD Start: 04-16-2013 End: 04-16-2013 Lipid 1996 panel - Serum or Plasma Adiel Azul MD Start: 04-16-2013 End: 04-16-2013 Hepatic function 2000 panel - Serum or Plasma Adiel Azul MD Start: 04-16-2013 End: 04-16-2013 Lipid 1996 panel - Serum or Plasma Adiel Azul MD Start: 02-18-2013 End: 08-05-2013 Follow Up Appt 3 months Sally Hodge Start: 02-18-2013 End: 08-05-2013 Pacer Clinic Elijah West MD Start: 02-18-2013 End: 02-18-2013 Program eval implantable in persn dual ld pacer Elijah West MD Start: 02-18-2013 End: 08-05-2013 Follow Up Appt 3 months Sally Hodge Start: 02-18-2013 End: 08-05-2013 Pacer Clinic Elijah West MD Start: 02-18-2013 End: 02-18-2013 Program eval implantable in persn dual ld pacer Elijah West MD Start: 01-03-2013 End: 01-03-2013 Follow Up Appt 6 months Adiel Azul MD Start: 01-03-2013 End: 01-03-2013 Follow Up Appt 6 months Adiel Azul MD Start: 10-18-2012 End: 10-18-2012 Ecg routine ecg w/least 12 lds w/i&r Adiel Azul MD Start: 10-18-2012 End: 10-18-2012 Follow Up Appt 3 months Adiel Azul MD Start: 10-18-2012 End: 10-18-2012 Ecg routine ecg w/least 12 lds w/i&r Adiel Azul MD Start: 10-18-2012 End: 10-18-2012 Follow Up Appt 3 months Adiel Azul MD Start: 10-02-2012 End: 10-18-2012 *BMP Adiel Azul MD Start: 10-02-2012 End: 10-18-2012 *Hepatic Function Panel Adiel Azul MD Start: 10-02-2012 End: 10-18-2012 Lipid 1996 panel - Serum or Plasma Adiel Azul MD Start: 10-02-2012 End: 10-18-2012 Magnesium [Mass/volume] in Serum or Plasma Adiel Azul MD Start: 10-02-2012 End: 10-18-2012 Thyrotropin [Units/volume] in Serum or Plasma Adiel Azul MD Start: 10-02-2012 End: 10-18-2012 Thyroxine (T4) [Mass/volume] in Serum or Plasma Adiel Azul MD Start: 10-02-2012 End: 10-18-2012 Basic metabolic 2000 panel - Serum or Plasma Adiel Azul MD Start: 10-02-2012 End: 10-18-2012 Hepatic function 2000 panel - Serum or Plasma Adiel Azul MD Start: 10-02-2012 End: 10-18-2012 Lipid 1996 panel - Serum or Plasma Adiel Azul MD Start: 10-02-2012 End: 10-18-2012 Magnesium [Mass/volume] in Serum or Plasma Adiel Azul MD Start: 10-02-2012 End: 10-18-2012 Thyrotropin [Units/volume] in Serum or Plasma Adiel Azul MD Start: 10-02-2012 End: 10-18-2012 Thyroxine (T4) [Mass/volume] in Serum or Plasma Adiel Azul MD Start: 09-30-2012 End: 09-30-2012 Mammogram, Screening, both breasts Luis Eduardo Sanders MD Start: 09-30-2012 End: 09-30-2012 Mammogram, Screening, both breasts Luis Eduardo Sanders MD Start: 08-12-2012 End: 08-12-2012 Nurse Teaching (no charge) Adiel Azul MD Start: 08-12-2012 End: 08-12-2012 Nurse Teaching (no charge) Adiel Azul MD Start: 08-09-2012 End: 12-23-2013 Complete portable sleep workup (portabel,CPAP as indicated) & follow up Luis Eduardo Sanders MD Start: 08-09-2012 End: 08-09-2013 Physical Therapy General Luis Eduardo Sanders MD Start: 08-09-2012 End: 12-23-2013 Complete portable sleep workup (portabel,CPAP as indicated) & follow up Luis Eduardo Sanders MD Start: 08-09-2012 End: 08-09-2013 Physical Therapy General Luis Eduardo Sanders MD Start: 08-05-2012 End: 08-12-2012 Arterial exam Adiel Azul MD Start: 08-05-2012 End: 08-12-2012 Venous doppler Adiel Azul MD Start: 08-05-2012 End: 08-12-2012 Arterial exam Adiel Azul MD Start: 08-05-2012 End: 08-12-2012 Venous doppler Adiel Azul MD Start: 07-29-2012 End: 07-29-2012 Ecg routine ecg w/least 12 lds w/i&r Adiel Azul MD Start: 07-29-2012 End: 10-18-2012 Follow Up Appt 6 weeks Adiel Azul MD Start: 07-29-2012 End: 07-29-2012 Ecg routine ecg w/least 12 lds w/i&r Adiel Azul MD Start: 07-29-2012 End: 10-18-2012 Follow Up Appt 6 weeks Adiel Azul MD Start: 06-24-2012 End: 06-24-2012 Ecg routine ecg w/least 12 lds w/i&r Adiel Azul MD Start: 06-24-2012 End: 06-24-2012 Follow Up Appt 4 months Adiel Azul MD Start: 06-24-2012 End: 06-24-2012 Ecg routine ecg w/least 12 lds w/i&r Adiel Azul MD Start: 06-24-2012 End: 06-24-2012 Follow Up Appt 4 months Adiel Azul MD Start: 06-07-2012 End: 06-18-2012 Follow-up visit Luis Eduardo Sanders MD Start: 06-07-2012 End: 06-18-2012 Follow-up visit Luis Eduardo Sanedrs MD Start: 2012 End: 06-18-2012 *BMP Adiel Azul MD Start: 2012 End: 06-18-2012 *Hepatic Function Panel Adiel Azul MD Start: 2012 End: 06-18-2012 Lipid 1996 panel - Serum or Plasma Adiel Azul MD Start: 2012 End: 06-18-2012 Magnesium [Mass/volume] in Serum or Plasma Adiel Azul MD Start: 2012 End: 06-18-2012 Thyrotropin [Units/volume] in Serum or Plasma Adiel Azul MD Start: 2012 End: 06-18-2012 Thyroxine (T4) [Mass/volume] in Serum or Plasma Adiel Azul MD Start: 2012 End: 06-18-2012 Basic metabolic 2000 panel - Serum or Plasma Adiel Azul MD Start: 2012 End: 06-18-2012 Hepatic function 2000 panel - Serum or Plasma Adiel Azul MD Start: 2012 End: 06-18-2012 Lipid 1996 panel - Serum or Plasma Adiel Azul MD Start: 2012 End: 06-18-2012 Magnesium [Mass/volume] in Serum or Plasma Adiel Azul MD Start: 2012 End: 06-18-2012 Thyrotropin [Units/volume] in Serum or Plasma Adiel Azul MD Start: 2012 End: 06-18-2012 Thyroxine (T4) [Mass/volume] in Serum or Plasma Adiel Azul MD Start: 04-30-2012 End: 05-02-2012 Bacteria identified in Urine by Culture Luis Eduardo Sanders MD Start: 04-30-2012 End: 05-02-2012 Urnls dip stick/tablet rgnt non-auto w/o micrscp Luis Eduardo Sanders MD Start: 04-30-2012 End: 04-30-2012 Urinalysis Pricilla Hernandez RN Start: 04-30-2012 End: 05-02-2012 Bacteria identified in Urine by Culture Luis Eduardo Sanders MD Start: 04-30-2012 End: 05-02-2012 Urnls dip stick/tablet rgnt non-auto w/o micrscp Luis Eduardo Sanders MD Start: 04-12-2012 End: 04-12-2012 Follow Up Appt 2 weeks Luis Eduardo Sanders MD Start: 04-12-2012 End: 04-12-2012 Follow Up Appt 2 weeks Luis Eduardo Sanders MD Start: 02-22-2012 End: 06-18-2012 Chest x-ray Adiel Azul MD Start: 02-22-2012 End: 02-22-2012 Follow Up Appt 4 months Adiel Azul MD Start: 02-22-2012 End: 06-18-2012 Pulmonary Fuction Test - complete Adiel Azul MD Start: 02-22-2012 End: 06-18-2012 Chest x-ray Adiel Azul MD Start: 02-22-2012 End: 02-22-2012 Follow Up Appt 4 months Adiel Azul MD Start: 02-22-2012 End: 06-18-2012 Pulmonary Fuction Test - complete Adiel Azul MD Start: 02-14-2012 End: 02-14-2012 Follow-up visit Luis Eduardo Sanders MD Start: 02-14-2012 End: 02-14-2012 Therapeutic prophylactic/dx injection subq/im Luis Eduardo Sanders MD Start: 02-14-2012 End: 02-14-2012 Follow-up visit Luis Eduardo Sanders MD Start: 02-14-2012 End: 02-14-2012 Therapeutic prophylactic/dx injection subq/im Luis Eduardo Sanders MD Start: 01-03-2012 End: 01-22-2012 *Hepatic Function Panel Adiel Azul MD Start: 01-03-2012 End: 01-22-2012 Lipid 1996 panel - Serum or Plasma Adiel Azul MD Start: 01-03-2012 End: 01-22-2012 Thyrotropin [Units/volume] in Serum or Plasma Adiel Azul MD Start: 01-03-2012 End: 01-22-2012 Thyroxine (T4) [Mass/volume] in Serum or Plasma Adiel Azul MD Start: 01-03-2012 End: 01-22-2012 Hepatic function 2000 panel - Serum or Plasma Adiel Azul MD Start: 01-03-2012 End: 01-22-2012 Lipid 1996 panel - Serum or Plasma Adiel Azul MD Start: 01-03-2012 End: 01-22-2012 Thyrotropin [Units/volume] in Serum or Plasma Adiel Azul MD Start: 01-03-2012 End: 01-22-2012 Thyroxine (T4) [Mass/volume] in Serum or Plasma Adiel Azul MD Start: 12-01-2011 End: 12-01-2011 Follow Up Appt 3 months Luis Eduardo Sanders MD Start: 12-01-2011 End: 12-01-2012 Pain Management Luis Eduardo Sanders MD Start: 12-01-2011 End: 12-01-2011 Follow Up Appt 3 months Luis Eduardo Sanders MD Start: 12-01-2011 End: 12-01-2012 Pain Management Luis Eduardo Sanders MD Start: 10-09-2011 End: 01-12-2012 Follow Up Appt 3 months Adiel Azul MD Start: 10-09-2011 End: 01-12-2012 Follow Up Appt 3 months Adiel Azul MD Start: 09-25-2011 End: 09-25-2011 Follow Up Appt 1 month Luis Eduardo Sanders MD Start: 09-25-2011 End: 09-25-2012 Physical Therapy General Luis Eduardo Sanders MD Start: 09-25-2011 End: 09-25-2011 Follow Up Appt 1 month Luis Eduardo Sanders MD Start: 09-25-2011 End: 09-25-2012 Physical Therapy General Luis Eduardo Sanders MD Start: 09-05-2011 End: 09-05-2011 Follow Up Appt 4 months Luis Eduardo Sanders MD Start: 09-05-2011 End: 09-05-2011 Follow Up Appt 4 months Luis Eduardo Sanders MD Start: 07-13-2011 End: 07-18-2011 Mammogram, Screening, both breasts Luis Eduardo Sanders MD Start: 07-13-2011 End: 07-18-2011 Mammogram, Screening, both breasts Luis Eduardo Sanders MD Start: 06-07-2011 End: 06-27-2011 Follow Up as scheduled Luis Eduardo Sanders MD Start: 06-07-2011 End: 06-27-2011 Follow Up as scheduled Luis Eduardo Sanders MD Start: 04-03-2011 End: 04-11-2011 Basic metabolic panel calcium total Luis Eduardo Sanders MD Start: 04-03-2011 End: 04-03-2011 Follow Up Appt 4 months Luis Eduardo Sanders MD Start: 04-03-2011 End: 04-03-2012 Physical Therapy General Luis Eduardo Sanders MD Start: 04-03-2011 End: 04-11-2011 Basic metabolic panel calcium total Luis Eduardo Sanders MD Start: 04-03-2011 End: 04-03-2011 Follow Up Appt 4 months Luis Eduardo Sanders MD Start: 04-03-2011 End: 04-03-2012 Physical Therapy General Luis Eduardo Sanders MD Start: 11-29-2010 End: 12-07-2010 Assay of vitamin D Luis Eduardo Sanders MD Start: 11-29-2010 End: 11-29-2010 Follow Up as scheduled Luis Eduardo Sanders MD Start: 11-29-2010 End: 12-07-2010 Assay of vitamin d Luis Eduardo Sanders MD Start: 11-29-2010 End: 11-29-2010 Follow Up as scheduled Luis Eduardo Sanders MD Start: 11-07-2010 End: 11-07-2010 Follow Up as scheduled Luis Eduardo Sanders MD Start: 11-07-2010 End: 11-07-2010 Follow Up as scheduled Luis Eduardo Sanders MD Start: 10-29-2010 End: 10-29-2010 Kevin Hernandez RN Start: 10-19-2010 End: 12-07-2010 Basic metabolic panel calcium total Luis Eduardo Sanders MD Start: 10-19-2010 End: 11-07-2010 Follow Up Appt 3 months Luis Eduardo Sanders MD Start: 10-19-2010 End: 12-07-2010 Basic metabolic panel calcium total Luis Eduardo Sanders MD Start: 10-19-2010 End: 11-07-2010 Follow Up Appt 3 months Luis Eduardo Sanders MD Start: 09-09-2010 End: 09-09-2010 Follow Up Appt 1 month Luis Eduarod Sanders MD Start: 09-09-2010 End: 09-09-2010 Follow Up Appt 1 month Luis Eduardo Sanders MD Start: 08-01-2010 End: 10-19-2010 Assay of thyroid stimulating hormone tsh Luis Eduardo Sanders MD Start: 08-01-2010 End: 08-01-2010 Follow Up as scheduled Luis Eduardo Sanders MD Start: 08-01-2010 End: 10-19-2010 Assay of thyroid stimulating hormone tsh Luis Eduardo Sanders MD Start: 08-01-2010 End: 08-01-2010 Follow Up as scheduled Luis Eduardo Sanders MD Start: 07-22-2010 End: 07-22-2010 Follow Up Appt 3 months Luis Eduardo Sanders MD Start: 07-22-2010 End: 07-22-2010 Follow Up Appt 3 months Luis Eduardo Sanders MD Start: 05-20-2010 End: 05-26-2010 Mammogram, Screening, both breasts Luis Eduardo Sanders MD Start: 05-20-2010 End: 05-26-2010 Mammogram, Screening, both breasts Luis Eduardo Sanders MD Start: 05-20-2010 End: 03-16-2015 Screening mammography Pricilla Hernandez RN Start: 02-04-2010 End: 02-10-2010 Follow Up Appt 3 months Luis Eduardo Sanders MD Start: 02-04-2010 End: 02-10-2010 Follow Up Appt 3 months Luis Eduardo Sanders MD Start: 12-21-2009 End: 03-22-2011 Chest x-ray Luis Eduardo Sanders MD Start: 12-21-2009 End: 12-21-2009 Follow Up Appt 3 months Luis Eduardo Sanders MD Start: 12-21-2009 End: 03-22-2011 Chest x-ray Luis Eduardo Sanders MD Start: 12-21-2009 End: 12-21-2009 Follow Up Appt 3 months Luis Eduardo Sanders MD Start: 07-23-2009 History of placement of stent for coronary artery disease History of coronary artery stent placement Dr. Todd Carbajal Work Phone: Comment on above: [id number]-Ddjeag and P caitlyn RCA w/ 3.0 x 23 mm and 3.0 x 18 mm Promus Rx Stent June 2009; History of decompres coral of median nerve History of carpal tunnel surgery of left wrist Dr. Todd Carbajal Work Phone: Viral antigen assay Dr. Todd Carbajal Work Phone: Plan of Treatment Date Care Activity Detail Author Start: 08-03-2025 Patient discharge [facility] Start: 07-30-2025 Administration of blood product [facility] Start: 07-30-2025 [facility] Start: 07-28-2025 Registered Referred Registered Referred -[facility] [place] Start: 07-22-2025 Plain chest X-ray Chest 1 View (Portable) [facility] Start: 07-22-2025 Plain radiography of pelvis Pelvis 1 or 2 Views [facility] Start: 07-22-2025 [facility] Start: 07-22-2025 Plain X-ray of shoulder Shoulder min 2 Views [facility] Start: 07-22-2025 CT of face Sinus/Facial Bone [facility] Start: 07-22-2025 CT cervical spine without contrast Spine Cervical without Contras [facility] Start: 07-22-2025 CT of head without contrast Brain/Head without Contrast [facility] Start: 07-22-2025 End: 07-22-2025 Emergency department patient visit Departed Emergency -Emergency Department Work Phone: Start: 05-08-2025 Continuous pulse oximetry [facility] [place] Start: 05-08-2025 Walking distance 6 minutes [facility] Start: 03-28-2022 Patient referral [facility] Work Phone: Start: 07-03-2019 End: 07-03-2019 Office Visit 07/03/2019 Office Visit Cardiovascular Medicine Jairo Buckner, Tito Alonso MD [address] [place] [id number] [facility] [place] Start: 06-29-2019 Influenza vaccination INFLUENZA VACCINE (#1) [facility] Start: 03-19-2018 End: 03-19-2018 Appointment Appointment [facility] Work Phone: Start: 01-21-2018 End: 08-01-2017 *Hepatic Function Panel *Hepatic Function Panel [facility] Work Phone: Start: 01-21-2018 End: 08-01-2017 Lipid panel [AGGREGATE] *Lipid Profile CC PCP [facility] Work Phone: Start: 01-21-2018 End: 08-01-2017 Hepatic function 2000 panel - Serum or Plasma *Hepatic Function Panel [facility] Work Phone: Start: 01-21-2018 End: 08-01-2017 Lipid 1996 panel - Serum or Plasma *Lipid Profile CC PCP [facility] Work Phone: Start: 10-17-2017 End: 10-17-2017 Appointment Appointment [facility] Work Phone: Start: 09-03-2017 End: 09-03-2017 SLUNK SKINNER SLUNK SKINNER [facility] Work Phone: Start: 09-03-2017 End: 09-03-2017 Follow Up Appt 6 months Follow Up Appt 6 months [facility] Work Phone: Start: 09-03-2017 End: 09-03-2017 Appointment [facility] Work Phone: Start: 09-03-2017 End: 09-03-2017 SLUNK SKINNER SLUNK SKINNER [facility] Work Phone: Start: 09-03-2017 End: 09-03-2017 Follow Up Appt 6 months Follow Up Appt 6 months [facility] Work Phone: Start: 08-20-2017 End: 08-24-2017 Follow Up Appt 3 months Follow Up Appt 3 months [facility] Work Phone: Start: 08-20-2017 End: 08-24-2017 Pacer Clinic [facility] Work Phone: Start: 08-20-2017 End: 08-20-2017 Patient encounter procedure Appointment [facility] Work Phone: Start: 08-20-2017 End: 08-24-2017 Follow Up Appt 3 months Follow Up Appt 3 months [facility] Work Phone: Start: 08-20-2017 End: 08-24-2017 Pacer Clinic [facility] Work Phone: Start: 08-14-2017 End: 08-14-2017 Patient encounter procedure Appointment [facility] Work Phone: Start: 07-27-2017 End: 07-27-2017 Patient encounter procedure Appointment [facility] Work Phone: Start: 07-13-2017 End: 07-23-2017 *Hepatic Function Panel *Hepatic Function Panel [facility] Work Phone: Start: 07-13-2017 End: 07-23-2017 Lipid panel [AGGREGATE] *Lipid Profile CC PCP [facility] Work Phone: Start: 07-13-2017 End: 07-23-2017 Hepatic function 2000 panel - Serum or Plasma [facility] Work Phone: Start: 07-13-2017 End: 07-23-2017 Lipid 1996 panel - Serum or Plasma [facility] Work Phone: Start: 07-12-2017 End: 07-12-2017 Patient encounter procedure Appointment [facility] Work Phone: Start: 07-12-2017 End: 07-12-2017 Colonoscopy flx dx w/collj spec when pfrmd Colonoscopy [facility] Work Phone: Start: 07-12-2017 End: 07-12-2017 Colonoscopy flx dx w/collj spec when pfrmd Colonoscopy [facility] Work Phone: Start: 07-03-2017 End: 07-03-2017 Follow Up Appt Other Follow Up Appt Other [facility] Work Phone: Start: 07-03-2017 End: 07-03-2017 Patient encounter procedure Appointment [facility] Work Phone: Start: 07-03-2017 End: 07-03-2017 Follow Up Appt Other Follow Up Appt Other [facility] Work Phone: Start: 05-08-2017 End: 07-03-2017 Follow Up Appt 3 months Follow Up Appt 3 months [facility] Work Phone: Start: 05-08-2017 End: 07-03-2017 Pacer Clinic [facility] Work Phone: Start: 05-08-2017 End: 05-08-2017 Patient encounter procedure [facility] Work Phone: Start: 05-08-2017 End: 07-03-2017 Follow Up Appt 3 months Follow Up Appt 3 months [facility] Work Phone: Start: 05-08-2017 End: 07-03-2017 Pacer Clinic [facility] Work Phone: Start: 05-07-2017 End: 05-07-2017 Patient encounter procedure Appointment [facility] Work Phone: Start: 04-02-2017 End: 04-02-2017 *BMP *BMP [facility] Work Phone: Start: 04-02-2017 End: 04-02-2017 INR Coag RelTime (PPP) *PT/INR [facility] Work Phone: Start: 04-02-2017 End: 04-02-2017 Basic metabolic 2000 panel - Serum or Plasma *BMP [facility] Work Phone: Start: 04-02-2017 End: 04-02-2017 INR in Platelet poor plasma by Coagulation assay *PT/INR [facility] Work Phone: Start: 02-27-2017 End: 02-27-2017 *BMP *BMP [facility] Work Phone: Start: 02-27-2017 End: 02-27-2017 BNP *Brain Natriuretic Peptide BNP [facility] Work Phone: Start: 02-27-2017 End: 02-27-2017 CBC W Auto Differential panel - Blood *CBC without Diff [facility] Work Phone: Start: 02-27-2017 End: 02-27-2017 Echocardiography Echocardiogram (complete) [facility] Work Phone: Start: 02-27-2017 End: 02-27-2017 Follow Up Appt 6 months Follow Up Appt 6 months [facility] Work Phone: Start: 02-27-2017 End: 02-27-2017 MMM MMM [facility] Work Phone: Start: 02-27-2017 End: 02-27-2017 Patient encounter procedure [facility] Work Phone: Start: 02-27-2017 End: 02-27-2017 Basic metabolic 2000 panel - Serum or Plasma [facility] Work Phone: Start: 02-27-2017 End: 02-27-2017 CBC W Auto Differential panel - Blood [facility] Work Phone: Start: 02-27-2017 End: 02-27-2017 Echocardiography [facility] Work Phone: Start: 02-27-2017 End: 02-27-2017 Follow Up Appt 6 months [facility] Work Phone: Start: 02-27-2017 End: 02-27-2017 MMM [facility] Work Phone: Start: 02-27-2017 End: 02-27-2017 Natriuretic peptide B [Mass/volume] in Blood [facility] Work Phone: Start: 01-30-2017 End: 07-03-2017 Follow Up Appt 3 months Follow Up Appt 3 months [facility] Work Phone: Start: 01-30-2017 End: 07-03-2017 Pacer Clinic [facility] Work Phone: Start: 01-30-2017 End: 07-03-2017 Follow Up Appt 3 months [facility] Work Phone: Start: 01-30-2017 End: 07-03-2017 [facility] Work Phone: Start: 12-04-2016 End: 01-12-2017 *Hepatic Function Panel *Hepatic Function Panel [employer] Work Phone: Start: 12-04-2016 End: 01-12-2017 Lipid panel [AGGREGATE] *Lipid Profile CC PCP [facility] Work Phone: Start: 12-04-2016 End: 01-12-2017 Hepatic function 2000 panel - Serum or Plasma [facility] Work Phone: Start: 12-04-2016 End: 01-12-2017 Lipid 1996 panel - Serum or Plasma [facility] Work Phone: Start: 10-31-2016 End: 03-07-2017 Follow Up Appt 3 months Follow Up Appt 3 months [facility] Work Phone: Start: 10-31-2016 End: 12-28-2016 INR Coag RelTime (PPP) *PT/INR - Standing Order [facility] Work Phone: Start: 10-31-2016 End: 03-07-2017 Pacer Clinic [facility] Work Phone: Start: 10-31-2016 End: 03-07-2017 Follow Up Appt 3 months [facility] Work Phone: Start: 10-31-2016 End: 12-28-2016 INR in Platelet poor plasma by Coagulation assay [facility] Work Phone: Start: 10-31-2016 End: 03-07-2017 Pacer Clinic [facility] Work Phone: Start: 10-17-2016 End: 02-01-2017 INR Coag RelTime (PPP) *PT/INR - Standing Order [facility] Work Phone: Start: 10-17-2016 End: 02-01-2017 INR in Platelet poor plasma by Coagulation assay [facility] Work Phone: Start: 08-31-2016 End: 08-31-2016 Nuclear stress test -Lexiscan Nuclear stress test -Lexiscan [facility] Work Phone: Start: 08-31-2016 End: 08-31-2016 Nuclear stress test -Lexiscan [facility] Work Phone: Start: 08-30-2016 End: 08-30-2016 SLUNK SKINNER SLUNK SKINNER [facility] Work Phone: Start: 08-30-2016 End: 08-30-2016 Follow Up Appt 6 months Follow Up Appt 6 months [facility] Work Phone: Start: 08-30-2016 End: 08-30-2016 SLUNK SKINNER [facility] Work Phone: Start: 08-30-2016 End: 08-30-2016 Follow Up Appt 6 months [facility] Work Phone: Start: 08-16-2016 End: 08-16-2016 Follow Up Appt 3 months Follow Up Appt 3 months [facility] Work Phone: Start: 08-16-2016 End: 08-16-2016 Pacer Clinic Pacer Clinic [facility] Work Phone: Start: 08-16-2016 End: 08-16-2016 Follow Up Appt 3 months [facility] Work Phone: Start: 08-16-2016 End: 08-16-2016 Pacer Clinic [facility] Work Phone: Start: 08-08-2016 End: 08-09-2016 *Hepatic Function Panel *Hepatic Function Panel [facility] Work Phone: Start: 08-08-2016 End: 08-09-2016 Lipid panel [AGGREGATE] *Lipid Profile CC PCP [facility] Work Phone: Start: 08-08-2016 End: 08-09-2016 Hepatic function 2000 panel - Serum or Plasma [facility] Work Phone: Start: 08-08-2016 End: 08-09-2016 Lipid 1996 panel - Serum or Plasma [facility] Work Phone: Start: 05-08-2016 End: 08-16-2016 Follow Up Appt 3 months Follow Up Appt 3 months [facility] Work Phone: Start: 05-08-2016 End: 08-16-2016 Pacer Clinic Pacer Clinic [facility] Work Phone: Start: 05-08-2016 End: 08-16-2016 Follow Up Appt 3 months [facility] Work Phone: Start: 05-08-2016 End: 08-16-2016 Pacer Clinic [facility] Work Phone: Start: 02-29-2016 End: 02-29-2016 *BMP *BMP [facility] Work Phone: Start: 02-29-2016 End: 02-29-2016 Follow Up Appt 6 months Follow Up Appt 6 months [facility] Work Phone: Start: 02-29-2016 End: 02-29-2016 MMM MMM [facility] Work Phone: Start: 02-29-2016 End: 02-29-2016 Basic metabolic 2000 panel - Serum or Plasma [facility] Work Phone: Start: 02-29-2016 End: 02-29-2016 Follow Up Appt 6 months [facility] Work Phone: Start: 02-29-2016 End: 02-29-2016 MMM [facility] Work Phone: Start: 02-02-2016 End: 08-16-2016 Follow Up Appt 3 months Follow Up Appt 3 months [facility] Work Phone: Start: 02-02-2016 End: 08-16-2016 Pacer Clinic [facility] Work Phone: Start: 02-02-2016 End: 08-16-2016 Follow Up Appt 3 months [facility] Work Phone: Start: 02-02-2016 End: 08-16-2016 Pacer Clinic [facility] Work Phone: Start: 01-19-2016 End: 02-07-2016 *Hepatic Function Panel *Hepatic Function Panel [facility] Work Phone: Start: 01-19-2016 End: 02-07-2016 Lipid panel [AGGREGATE] *Lipid Profile CC PCP [facility] Work Phone: Start: 01-19-2016 End: 02-07-2016 Hepatic function 2000 panel - Serum or Plasma [facility] Work Phone: Start: 01-19-2016 End: 02-07-2016 Lipid 1996 panel - Serum or Plasma [facility] Work Phone: Start: 11-04-2015 End: 03-07-2017 Mammogram, screening Mammogram, Screening, both breasts [facility] Work Phone: Start: 11-04-2015 End: 03-07-2017 Mammogram, screening [facility] Work Phone: Start: 10-27-2015 End: 08-16-2016 Follow Up Appt 3 months Follow Up Appt 3 months [facility] Phone: Start: 10-27-2015 End: 08-16-2016 Pacer Clinic [facility] Work Phone: Start: 10-27-2015 End: 08-16-2016 Follow Up Appt 3 months [facility] Work Phone: Start: 10-27-2015 End: 08-16-2016 [facility] Work Phone: Start: 08-27-2015 End: 08-27-2015 SLUNK SKINNER SLUNK SKINNER [facility] Work Phone: Start: 08-27-2015 End: 08-27-2015 Follow Up Appt 6 months Follow Up Appt 6 months [facility] Work Phone: Start: 08-27-2015 End: 08-27-2015 SLUNK SKINNER [facility] Work Phone: Start: 08-27-2015 End: 08-27-2015 Follow Up Appt 6 months [facility] Work Phone: Start: 07-28-2015 End: 07-20-2015 *Hepatic Function Panel *Hepatic Function Panel [facility] Work Phone: Start: 07-28-2015 End: 07-20-2015 Lipid panel [AGGREGATE] *Lipid Profile CC PCP [facility] Work Phone: Start: 07-28-2015 End: 07-20-2015 Hepatic function 2000 panel - Serum or Plasma [facility] Work Phone: Start: 07-28-2015 End: 07-20-2015 Lipid 1996 panel - Serum or Plasma [facility] Work Phone: Start: 07-21-2015 End: 08-18-2015 Follow Up Appt 3 months Follow Up Appt 3 months [facility] Work Phone: Start: 07-21-2015 End: 08-18-2015 Pacer Clinic [facility] Work Phone: Start: 07-21-2015 End: 08-18-2015 Follow Up Appt 3 months [facility] Work Phone: Start: 07-21-2015 End: 08-18-2015 [facility] Clinic [facility] Work Phone: Start: 06-04-2015 End: 06-18-2015 Surgery Referral Surgery Referral Gilmer Holley, [address] [facility], [address], [place], [address] [facility] Work Phone: Start: 06-04-2015 End: 06-18-2015 Admission to same day surgery center [facility] Work Phone: Start: 05-26-2015 End: 05-26-2015 Pulmonary Referral Pulmonary Referral Gilmer Logan, [address] [place] [address], [place], [address] [facility] Work Phone: Start: 05-26-2015 End: 05-26-2015 Patient encounter procedure [facility] Work Phone: Start: 05-17-2015 End: 05-18-2015 *BMP *BMP [facility] Work Phone: Start: 05-17-2015 End: 05-18-2015 *CBC with Differential *CBC with Differential [facility] Work Phone: Start: 05-17-2015 End: 05-18-2015 BNP *Brain Natriuretic Peptide BNP [facility] Work Phone: Start: 05-17-2015 End: 05-18-2015 Chest x-ray X-Ray, Chest, PA & Lateral [facility] Work Phone: Start: 05-17-2015 End: 05-18-2015 Fibrin D-dimer FEU *DDIMQ - Fibrin Degrd Ultrsens Qual/Semiquan [facility] Work Phone: Start: 05-17-2015 End: 05-18-2015 Basic metabolic 2000 panel - Serum or Plasma [facility] Work Phone: Start: 05-17-2015 End: 05-18-2015 CBC W Auto Differential panel - Blood [facility] Work Phone: Start: 05-17-2015 End: 05-18-2015 Chest x-ray [facility] Work Phone: Start: 05-17-2015 End: 05-18-2015 Fibrin D-dimer FEU [Mass/volume] in Platelet poor plasma [facility] Work Phone: Start: 05-17-2015 End: 05-18-2015 Natriuretic peptide B [Mass/volume] in Blood [facility] Work Phone: Start: 04-14-2015 End: 08-18-2015 Follow Up Appt 3 months Follow Up Appt 3 months [facility] Work Phone: Start: 04-14-2015 End: 08-18-2015 Pacer Clinic [facility] Work Phone: Start: 04-14-2015 End: 08-18-2015 Follow Up Appt 3 months [facility] Work Phone: Start: 04-14-2015 End: 08-18-2015 Pacer Clinic [facility] Work Phone: Start: 02-23-2015 End: 02-23-2015 Follow Up Appt 6 months Follow Up Appt 6 months [facility] Work Phone: Start: 02-23-2015 End: 02-23-2015 MMM MMM [facility] Work Phone: Start: 02-23-2015 End: 02-23-2015 Nuclear stress test -Lexiscan Nuclear stress test -Lexiscan [facility] Work Phone: Start: 02-23-2015 End: 02-23-2015 Follow Up Appt 6 months [facility] Work Phone: Start: 02-23-2015 End: 02-23-2015 MMM [facility] Work Phone: Start: 02-23-2015 End: 02-23-2015 Nuclear stress test -Lexiscan [facility] Work Phone: Start: 02-01-2015 End: 02-01-2015 *CBC with Differential *CBC with Differential [facility] Work Phone: Start: 02-01-2015 End: 02-01-2015 *CMP Complete Metabolic Panel *CMP Complete Metabolic Panel [facility] Work Phone: Start: 02-01-2015 End: 02-01-2015 Lipase *Lipase [facility] Work Phone: Start: 02-01-2015 End: 02-01-2015 Us abdominal real time w/image limited US Gallbladder [facility] Work Phone: Start: 02-01-2015 End: 02-01-2015 *CMP Complete Metabolic Panel [facility] Work Phone: Start: 02-01-2015 End: 02-01-2015 CBC W Auto Differential panel - Blood [facility] Work Phone: Start: 02-01-2015 End: 02-01-2015 Lipase [Enzymatic activity/volume] in Serum or Plasma [facility] Work Phone: Start: 02-01-2015 End: 02-01-2015 Us abdominal real time w/image limited [facility] Work Phone: Start: 01-13-2015 End: 03-07-2017 Chest x-ray X-Ray, Chest, PA & Lateral [facility] Work Phone: Start: 01-13-2015 End: 03-07-2017 Removal impacted cerumen instrumentation unilat Ear wax removal [facility] Work Phone: Start: 01-13-2015 End: 03-07-2017 Chest x-ray [facility] Work Phone: Start: 01-13-2015 End: 03-07-2017 Removal impacted cerumen instrumentation unilat [facility] Work Phone: Start: 01-04-2015 End: 08-18-2015 Follow Up Appt 3 months Follow Up Appt 3 months [facility] Work Phone: Start: 01-04-2015 End: 08-18-2015 Pacer Clinic [facility] Work Phone: Start: 01-04-2015 End: 08-18-2015 Follow Up Appt 3 months [facility] Work Phone: Start: 01-04-2015 End: 08-18-2015 [facility] Clinic [facility] Work Phone: Start: 12-27-2014 End: 01-25-2015 *Hepatic Function Panel *Hepatic Function Panel [facility] Work Phone: Start: 12-27-2014 End: 01-25-2015 Lipid panel [AGGREGATE] *Lipid Profile CC PCP [facility] Work Phone: Start: 12-27-2014 End: 01-25-2015 Hepatic function 2000 panel - Serum or Plasma [facility] Work Phone: Start: 12-27-2014 End: 01-25-2015 Lipid 1996 panel - Serum or Plasma [facility] Work Phone: Start: 11-17-2014 End: 11-17-2014 SLUNK SKINNER SLUNK SKINNER [facility] Work Phone: Start: 11-17-2014 End: 11-17-2014 Follow Up Appt Other Follow Up Appt Other [facility] Work Phone: Start: 11-17-2014 End: 11-17-2014 SLUNK SKINNER [facility] Work Phone: Start: 11-17-2014 End: 11-17-2014 Follow Up Appt Other [facility] Work Phone: Start: 11-02-2014 End: 08-18-2015 BNP *Brain Natriuretic Peptide BNP [facility] Work Phone: Start: 11-02-2014 End: 08-18-2015 SLUNK SKINNER SLUNK SKINNER [facility] Work Phone: Start: 11-02-2014 End: 11-02-2014 Echocardiography Echocardiogram (complete) [facility] Work Phone: Start: 11-02-2014 End: 08-18-2015 Follow Up Appt Other Follow Up Appt Other [facility] Work Phone: Start: 11-02-2014 End: 11-02-2014 Nuclear stress test -Lexiscan Nuclear stress test -Lexiscan [facility] Work Phone: Start: 11-02-2014 End: 08-18-2015 Thyroid stimulating hormone (TSH) *TSH [facility] Work Phone: Start: 11-02-2014 End: 08-18-2015 SLUNK SKINNER [facility] Work Phone: Start: 11-02-2014 End: 11-02-2014 Echocardiography [facility] Work Phone: Start: 11-02-2014 End: 08-18-2015 Follow Up Appt Other [facility] Work Phone: Start: 11-02-2014 End: 08-18-2015 Natriuretic peptide B [Mass/volume] in Blood [facility] Work Phone: Start: 11-02-2014 End: 11-02-2014 Nuclear stress test -Lexiscan [facility] Work Phone: Start: 11-02-2014 End: 08-18-2015 Thyrotropin [Units/volume] in Serum or Plasma [facility] Work Phone: Start: 10-28-2014 End: 11-17-2014 *Hepatic Function Panel *Hepatic Function Panel [facility] Work Phone: Start: 10-28-2014 End: 11-17-2014 Lipid panel [AGGREGATE] *Lipid Profile CC PCP [facility] Work Phone: Start: 10-28-2014 End: 11-17-2014 Hepatic function 2000 panel - Serum or Plasma [facility] Work Phone: Start: 10-28-2014 End: 11-17-2014 Lipid 1996 panel - Serum or Plasma [facility] Phone: Start: 10-19-2014 End: 11-11-2014 Mammogram, Screening, both breasts Mammogram, Screening, both breasts [facility] Work Phone: Start: 10-19-2014 End: 11-11-2014 Mammogram, Screening, both breasts [facility] Work Phone: Start: 10-02-2014 End: 11-17-2014 Follow Up Appt 3 months Follow Up Appt 3 months [facility] Work Phone: Start: 10-02-2014 End: 11-17-2014 Pacer Clinic [facility] Work Phone: Start: 10-02-2014 End: 11-17-2014 Follow Up Appt 3 months [facility] Work Phone: Start: 10-02-2014 End: 11-17-2014 Pacer Clinic [facility] Work Phone: Start: 08-12-2014 End: 08-12-2014 SLUNK SKINNER SLUNK SKINNER [facility] Work Phone: Start: 08-12-2014 End: 08-12-2014 Follow Up Appt 6 months Follow Up Appt 6 months [facility] Work Phone: Start: 08-12-2014 End: 08-12-2014 SLUNK SKINNER [facility] Work Phone: Start: 08-12-2014 End: 08-12-2014 Follow Up Appt 6 months [facility] Work Phone: Start: 06-30-2014 End: 07-30-2014 Follow Up Appt 3 months Follow Up Appt 3 months [facility] Work Phone: Start: 06-30-2014 End: 07-30-2014 Pacer Clinic [facility] Work Phone: Start: 06-30-2014 End: 07-30-2014 Follow Up Appt 3 months [facility] Work Phone: Start: 06-30-2014 End: 07-30-2014 [facility] Work Phone: Start: 05-29-2014 End: 06-24-2014 *Hepatic Function Panel *Hepatic Function Panel [facility] Work Phone: Start: 05-29-2014 End: 06-24-2014 Lipid panel [AGGREGATE] *Lipid Profile CC PCP [facility] Work Phone: Start: 05-29-2014 End: 06-24-2014 Hepatic function 2000 panel - Serum or Plasma [facility] Work Phone: Start: 05-29-2014 End: 06-24-2014 Lipid 1996 panel - Serum or Plasma [facility] Work Phone: Start: 04-01-2014 End: 07-30-2014 Follow Up Appt 3 months Follow Up Appt 3 months [facility] Work Phone: Start: 04-01-2014 End: 07-30-2014 Pacer Clinic [facility] Work Phone: Start: 04-01-2014 End: 07-30-2014 Follow Up Appt 3 months [facility] Work Phone: Start: 04-01-2014 End: 07-30-2014 [facility]er Clinic [facility] Work Phone: Start: 03-09-2014 End: 03-26-2014 Thyroid stimulating hormone (TSH) *TSH [facility] Work Phone: Start: 03-09-2014 End: 03-26-2014 Thyrotropin [Units/volume] in Serum or Plasma [facility] Work Phone: Start: 03-02-2014 End: 03-03-2014 Thyroid stimulating hormone (TSH) *TSH [facility] Work Phone: Start: 03-02-2014 End: 03-03-2014 Thyrotropin [Units/volume] in Serum or Plasma [facility] Work Phone: Start: 02-21-2014 End: 06-24-2014 *Hepatic Function Panel *Hepatic Function Panel [facility] Work Phone: Start: 02-21-2014 End: 06-24-2014 Lipid panel [AGGREGATE] *Lipid Profile CC PCP [facility] Work Phone: Start: 02-21-2014 End: 06-24-2014 Hepatic function 2000 panel - Serum or Plasma [facility] Work Phone: Start: 02-21-2014 End: 06-24-2014 Lipid 1996 panel - Serum or Plasma [facility] Work Phone: Start: 02-10-2014 End: 02-10-2014 Follow Up Appt 6 months Follow Up Appt 6 months [facility] Work Phone: Start: 02-10-2014 End: 02-10-2014 MMM MMM [facility] Work Phone: Start: 02-10-2014 End: 02-10-2014 Follow Up Appt 6 months [facility] Work Phone: Start: 02-10-2014 End: 02-10-2014 MMM [facility] Work Phone: Start: 12-23-2013 End: 06-24-2014 Follow Up Appt 3 months Follow Up Appt 3 months [facility] Work Phone: Start: 12-23-2013 End: 06-24-2014 Pacer Clinic [facility] Work Phone: Start: 12-23-2013 End: 06-24-2014 Follow Up Appt 3 months [facility] Work Phone: Start: 12-23-2013 End: 06-24-2014 [facility] Clinic [facility] Work Phone: Start: 12-02-2013 End: 12-23-2013 *Hepatic Function Panel *Hepatic Function Panel [facility] Work Phone: Start: 12-02-2013 End: 12-23-2013 Lipid panel [AGGREGATE] *Lipid Profile CC PCP [facility] Work Phone: Start: 12-02-2013 End: 12-23-2013 Hepatic function 2000 panel - Serum or Plasma [facility] Work Phone: Start: 12-02-2013 End: 12-23-2013 Lipid 1996 panel - Serum or Plasma [facility] Work Phone: Start: 11-06-2013 End: 11-06-2013 Ambulatory BP Monitor 24 HR Ambulatory BP Monitor 24 HR [facility] Work Phone: Start: 11-06-2013 End: 11-06-2013 Follow Up Appt Other Follow Up Appt Other [facility] Work Phone: Start: 11-06-2013 End: 11-06-2013 Ambulatory BP Monitor 24 HR [facility] Work Phone: Start: 11-06-2013 End: 11-06-2013 Follow Up Appt Other [facility] Work Phone: Start: 10-14-2013 End: 11-27-2013 *BMP *BMP [facility] Work Phone: Start: 10-14-2013 End: 11-27-2013 Basic metabolic 2000 panel - Serum or Plasma [facility] Work Phone: Start: 09-19-2013 End: 10-13-2013 Mammogram, Screening, both breasts Mammogram, Screening, both breasts [facility] Work Phone: Start: 09-19-2013 End: 10-13-2013 Mammogram, Screening, both breasts [facility] Work Phone: Start: 09-17-2013 End: 12-23-2013 Follow Up Appt 3 months Follow Up Appt 3 months [facility] Work Phone: Start: 09-17-2013 End: 12-23-2013 Pacer Clinic [facility] Work Phone: Start: 09-17-2013 End: 12-23-2013 Follow Up Appt 3 months [facility] Work Phone: Start: 09-17-2013 End: 12-23-2013 [facility] Work Phone: Start: 08-13-2013 End: 12-23-2013 INR Coag RelTime (PPP) *PT/INR - Standing Order [facility] Work Phone: Start: 08-13-2013 End: 12-23-2013 INR in Platelet poor plasma by Coagulation assay [facility] Work Phone: Start: 08-05-2013 End: 12-23-2013 BNP *Brain Natriuretic Peptide BNP [facility] Work Phone: Start: 08-05-2013 End: 12-23-2013 Chest x-ray X-Ray, Chest, PA & Lateral [facility] Work Phone: Start: 08-05-2013 End: 08-05-2013 Follow Up Appt Other Follow Up Appt Other [facility] Work Phone: Start: 08-05-2013 End: 12-23-2013 Chest x-ray [facility] Work Phone: Start: 08-05-2013 End: 08-05-2013 Follow Up Appt Other [facility] Work Phone: Start: 08-05-2013 End: 12-23-2013 Natriuretic peptide B [Mass/volume] in Blood [facility] Work Phone: Start: 06-17-2013 End: 08-05-2013 Follow Up Appt 3 months Follow Up Appt 3 months [facility] Work Phone: Start: 06-17-2013 End: 08-05-2013 Pacer Clinic Pacer Clinic [facility] Work Phone: Start: 06-17-2013 End: 08-05-2013 Follow Up Appt 3 months [facility] Work Phone: Start: 06-17-2013 End: 08-05-2013 Pacer Clinic [facility] Work Phone: Start: 05-26-2013 End: 05-26-2013 *Hepatic Function Panel *Hepatic Function Panel [facility] Work Phone: Start: 05-26-2013 End: 05-26-2013 Lipid panel [AGGREGATE] *Lipid Profile CC PCP [facility] Work Phone: Start: 05-26-2013 End: 05-26-2013 Hepatic function 2000 panel - Serum or Plasma [facility] Work Phone: Start: 05-26-2013 End: 05-26-2013 Lipid 1996 panel - Serum or Plasma [facility] Work Phone: Start: 04-16-2013 End: 04-16-2013 *Hepatic Function Panel *Hepatic Function Panel [facility] Work Phone: Start: 04-16-2013 End: 04-16-2013 Lipid panel [AGGREGATE] *Lipid Profile [facility] Work Phone: Start: 04-16-2013 End: 04-16-2013 Hepatic function 2000 panel - Serum or Plasma [facility] Work Phone: Start: 04-16-2013 End: 04-16-2013 Lipid 1996 panel - Serum or Plasma [facility] Work Phone: Start: 02-18-2013 End: 08-05-2013 Follow Up Appt 3 months Follow Up Appt 3 months [facility] Work Phone: Start: 02-18-2013 End: 08-05-2013 Pacer Clinic Pacer Clinic [facility] Work Phone: Start: 02-18-2013 End: 08-05-2013 Follow Up Appt 3 months [facility] Work Phone: Start: 02-18-2013 End: 08-05-2013 Pacer Clinic [facility] Work Phone: Start: 01-03-2013 End: 01-03-2013 Follow Up Appt 6 months Follow Up Appt 6 months [facility] Work Phone: Start: 01-03-2013 End: 01-03-2013 Follow Up Appt 6 months [facility] Work Phone: Start: 10-18-2012 End: 10-18-2012 Ecg routine ecg w/least 12 lds w/i&r EKG (In office) [facility] Work Phone: Start: 10-18-2012 End: 10-18-2012 Follow Up Appt 3 months Follow Up Appt 3 months [facility] Work Phone: Start: 10-18-2012 End: 10-18-2012 Ecg routine ecg w/least 12 lds w/i&r [facility] Work Phone: Start: 10-18-2012 End: 10-18-2012 Follow Up Appt 3 months [facility] Work Phone: Start: 10-02-2012 End: 10-18-2012 *BMP *BMP [facility] Work Phone: Start: 10-02-2012 End: 10-18-2012 *Hepatic Function Panel *Hepatic Function Panel [facility] Work Phone: Start: 10-02-2012 End: 10-18-2012 Lipid panel [AGGREGATE] *Lipid Profile [facility] Work Phone: Start: 10-02-2012 End: 10-18-2012 Magnesium *Magnesium [facility] Work Phone: Start: 10-02-2012 End: 10-18-2012 Thyroid stimulating hormone (TSH) *TSH [facility] Work Phone: Start: 10-02-2012 End: 10-18-2012 Thyroxine (T4) *T4 (Total) [facility] Work Phone: Start: 10-02-2012 End: 10-18-2012 Basic metabolic 2000 panel - Serum or Plasma [facility] Work Phone: Start: 10-02-2012 End: 10-18-2012 Hepatic function 2000 panel - Serum or Plasma [facility] Work Phone: Start: 10-02-2012 End: 10-18-2012 Lipid 1996 panel - Serum or Plasma [facility] Work Phone: Start: 10-02-2012 End: 10-18-2012 Magnesium [Mass/volume] in Serum or Plasma [facility] Work Phone: Start: 10-02-2012 End: 10-18-2012 Thyrotropin [Units/volume] in Serum or Plasma [facility] Work Phone: Start: 10-02-2012 End: 10-18-2012 Thyroxine (T4) [Mass/volume] in Serum or Plasma [facility] Work Phone: Start: 09-30-2012 End: 09-30-2012 Mammogram, Screening, both breasts Mammogram, Screening, both breasts [facility] Work Phone: Start: 09-30-2012 End: 09-30-2012 Mammogram, Screening, both breasts [facility] Work Phone: Start: 08-09-2012 End: 12-23-2013 Complete portable sleep workup (portabel,CPAP as indicated) & follow up Complete portable sleep workup (portabel,CPAP as indicated) & follow up [facility] Work Phone: Start: 08-09-2012 End: 12-23-2013 Physical Therapy General Physical Therapy General Physical Therapy [facility], [address] [place] [address], [id number] [facility] Work Phone: Start: 08-09-2012 End: 12-23-2013 Complete portable sleep workup (portabel,CPAP as indicated) & follow up [facility] Work Phone: Start: 08-09-2012 End: 12-23-2013 Physical Therapy General [facility] Work Phone: Start: 08-05-2012 End: 08-12-2012 Arterial exam Arterial exam [facility] Work Phone: Start: 08-05-2012 End: 08-12-2012 Venous doppler Venous doppler [facility] Work Phone: Start: 08-05-2012 End: 08-12-2012 Arterial exam [facility] Work Phone: Start: 08-05-2012 End: 08-12-2012 Venous doppler [facility] Work Phone: Start: 07-29-2012 End: 07-29-2012 Ecg routine ecg w/least 12 lds w/i&r EKG (In office) [facility] Work Phone: Start: 07-29-2012 End: 10-18-2012 Follow Up Appt 6 weeks Follow Up Appt 6 weeks [facility] Work Phone: Start: 07-29-2012 End: 07-29-2012 Ecg routine ecg w/least 12 lds w/i&r [facility] Work Phone: Start: 07-29-2012 End: 10-18-2012 Follow Up Appt 6 weeks [facility] Work Phone: Start: 06-24-2012 End: 06-24-2012 Ecg routine ecg w/least 12 lds w/i&r EKG (In office) [facility] Work Phone: Start: 06-24-2012 End: 06-24-2012 Follow Up Appt 4 months Follow Up Appt 4 months [facility] Work Phone: Start: 06-24-2012 End: 06-24-2012 Ecg routine ecg w/least 12 lds w/i&r [facility] Work Phone: Start: 06-24-2012 End: 06-24-2012 Follow Up Appt 4 months [facility] Work Phone: Start: 06-07-2012 End: 06-18-2012 Follow-up visit Follow Up as needed [facility] Work Phone: Start: 06-07-2012 End: 06-18-2012 Follow-up visit [facility] Work Phone: Start: 2012 End: 06-18-2012 *BMP *BMP [facility] Work Phone: Start: 2012 End: 06-18-2012 *Hepatic Function Panel *Hepatic Function Panel [facility] Work Phone: Start: 2012 End: 06-18-2012 Lipid panel [AGGREGATE] *Lipid Profile [facility] Work Phone: Start: 2012 End: 06-18-2012 Magnesium *Magnesium [facility] Work Phone: Start: 2012 End: 06-18-2012 Thyroid stimulating hormone (TSH) *TSH [facility] Work Phone: Start: 2012 End: 06-18-2012 Thyroxine (T4) *T4 (Total) [facility] Work Phone: Start: 2012 End: 06-18-2012 Basic metabolic 2000 panel - Serum or Plasma [facility] Work Phone: Start: 2012 End: 06-18-2012 Hepatic function 2000 panel - Serum or Plasma [facility] Work Phone: Start: 2012 End: 06-18-2012 Lipid 1996 panel - Serum or Plasma [facility] Work Phone: Start: 2012 End: 06-18-2012 Magnesium [Mass/volume] in Serum or Plasma [facility] Work Phone: Start: 2012 End: 06-18-2012 Thyrotropin [Units/volume] in Serum or Plasma [facility] Work Phone: Start: 2012 End: 06-18-2012 Thyroxine (T4) [Mass/volume] in Serum or Plasma [facility] Work Phone: Start: 04-30-2012 End: 05-02-2012 Urine culture, bacteria *CUUR - Culture, Urine ([place] Count) [facility] Work Phone: Start: 04-30-2012 End: 05-02-2012 Urnls dip stick/tablet rgnt non-auto w/o micrscp UA Dipstick (Office) [facility] Work Phone: Start: 04-30-2012 End: 05-02-2012 Bacteria identified in Urine by Culture [facility] Work Phone: Start: 04-30-2012 End: 05-02-2012 Urnls dip stick/tablet rgnt non-auto w/o micrscp [facility] Work Phone: Start: 04-12-2012 End: 04-12-2012 Follow Up Appt 2 weeks Follow Up Appt 2 weeks [facility] Work Phone: Start: 04-12-2012 End: 04-12-2012 Follow Up Appt 2 weeks [facility] Work Phone: Start: 02-22-2012 End: 06-18-2012 Chest x-ray X-Ray, Chest, PA & Lateral [facility] Work Phone: Start: 02-22-2012 End: 02-22-2012 Follow Up Appt 4 months Follow Up Appt 4 months [facility] Work Phone: Start: 02-22-2012 End: 02-22-2012 Pulmonary Fuction Test - complete Pulmonary Fuction Test - complete [facility] Work Phone: Start: 02-22-2012 End: 06-18-2012 Chest x-ray [facility] Work Phone: Start: 02-22-2012 End: 02-22-2012 Follow Up Appt 4 months [facility] Work Phone: Start: 02-22-2012 End: 02-22-2012 Pulmonary Fuction Test - complete [facility] Work Phone: Start: 02-14-2012 End: 02-14-2012 Follow-up visit Follow Up as needed [facility] Work Phone: Start: 02-14-2012 End: 02-14-2012 Therapeutic prophylactic/dx injection subq/im Administration Injection (Prophylactic, Therapeutic or Diagnostic) [facility] Work Phone: Start: 02-14-2012 End: 02-14-2012 Follow-up visit [facility] Work Phone: Start: 02-14-2012 End: 02-14-2012 Therapeutic prophylactic/dx injection subq/im [facility] Work Phone: Start: 01-03-2012 End: 01-22-2012 *Hepatic Function Panel *Hepatic Function Panel [facility] Work Phone: Start: 01-03-2012 End: 01-22-2012 Lipid panel [AGGREGATE] *Lipid Profile [facility] Work Phone: Start: 01-03-2012 End: 01-22-2012 Thyroid stimulating hormone (TSH) *TSH [facility] Work Phone: Start: 01-03-2012 End: 01-22-2012 Thyroxine (T4) *T4 (Total) [facility] Work Phone: Start: 01-03-2012 End: 01-22-2012 Hepatic function 2000 panel - Serum or Plasma [facility] Work Phone: Start: 01-03-2012 End: 01-22-2012 Lipid 1996 panel - Serum or Plasma [facility] Work Phone: Start: 01-03-2012 End: 01-22-2012 Thyrotropin [Units/volume] in Serum or Plasma [facility] Work Phone: Start: 01-03-2012 End: 01-22-2012 Thyroxine (T4) [Mass/volume] in Serum or Plasma [facility] Work Phone: Start: 12-01-2011 End: 12-01-2011 Follow Up Appt 3 months Follow Up Appt 3 months [facility] Work Phone: Start: 12-01-2011 End: 01-12-2012 Pain Management Pain Management Binh Figueroa, [address] [place] [address], [place], [address] [facility] Work Phone: Start: 12-01-2011 End: 12-01-2011 Follow Up Appt 3 months [facility] Work Phone: Start: 12-01-2011 End: 01-12-2012 Pain Management [facility] Work Phone: Start: 10-09-2011 End: 01-12-2012 Follow Up Appt 3 months Follow Up Appt 3 months [facility] Work Phone: Start: 10-09-2011 End: 01-12-2012 Follow Up Appt 3 months [facility] Work Phone: Start: 09-25-2011 End: 09-25-2011 Follow Up Appt 1 month Follow Up Appt 1 month [facility] Work Phone: Start: 09-25-2011 End: 01-22-2012 Physical Therapy General Physical Therapy General Physical Therapy [facility], [address] [place] [address], [place], [address] [facility] Work Phone: Start: 09-25-2011 End: 09-25-2011 Follow Up Appt 1 month [facility] Work Phone: Start: 09-25-2011 End: 01-22-2012 Physical Therapy [facility] Work Phone: Start: 09-05-2011 End: 09-05-2011 Follow Up Appt 4 months Follow Up Appt 4 months [facility] Work Phone: Start: 09-05-2011 End: 09-05-2011 Follow Up Appt 4 months [facility] Work Phone: Start: 07-13-2011 End: 07-18-2011 Mammogram, Screening, both breasts Mammogram, Screening, both breasts [facility] Work Phone: Start: 07-13-2011 End: 07-18-2011 Mammogram, Screening, both breasts [facility] Work Phone: Start: 06-07-2011 End: 06-27-2011 Follow Up as scheduled Follow Up as scheduled [facility] Work Phone: Start: 06-07-2011 End: 06-27-2011 Follow Up as scheduled [facility] Work Phone: Start: 04-03-2011 End: 04-11-2011 Basic metabolic panel calcium total *BMP [facility] Work Phone: Start: 04-03-2011 End: 04-03-2011 Follow Up Appt 4 months Follow Up Appt 4 months [facility] Work Phone: Start: 04-03-2011 End: 04-11-2011 Physical Therapy General Physical Therapy General Physical Therapy [facility], [address] [place] [address], [address] [facility] Work Phone: Start: 04-03-2011 End: 04-11-2011 Basic metabolic panel calcium total [facility] Work Phone: Start: 04-03-2011 End: 04-03-2011 Follow Up Appt 4 months [facility] Work Phone: Start: 04-03-2011 End: 04-11-2011 Physical Therapy [facility] Work Phone: Start: 11-29-2010 End: 12-07-2010 Assay of vitamin D *Vitamin D (Calciferol) [facility] Work Phone: Start: 11-29-2010 End: 11-29-2010 Follow Up as scheduled Follow Up as scheduled [facility] Work Phone: Start: 11-29-2010 End: 12-07-2010 Assay of vitamin d [facility] Work Phone: Start: 11-29-2010 End: 11-29-2010 Follow Up as scheduled [facility] Work Phone: Start: 11-07-2010 End: 11-07-2010 Follow Up as scheduled Follow Up as scheduled [facility] Work Phone: Start: 11-07-2010 End: 11-07-2010 Follow Up as scheduled [facility] Work Phone: Start: 10-19-2010 End: 12-07-2010 Basic metabolic panel calcium total *BMP [facility] Work Phone: Start: 10-19-2010 End: 11-07-2010 Follow Up Appt 3 months Follow Up Appt 3 months [facility] Work Phone: Start: 10-19-2010 End: 12-07-2010 Basic metabolic panel calcium total [facility] Work Phone: Start: 10-19-2010 End: 11-07-2010 Follow Up Appt 3 months [facility] Work Phone: Start: 09-09-2010 End: 09-09-2010 Follow Up Appt 1 month Follow Up Appt 1 month [facility] Work Phone: Start: 09-09-2010 End: 09-09-2010 Follow Up Appt 1 month [facility] Work Phone: Start: 08-01-2010 End: 08-01-2010 Follow Up as scheduled Follow Up as scheduled [facility] Work Phone: Start: 08-01-2010 End: 10-19-2010 Thyroid stimulating hormone (TSH) *TSH [facility] Work Phone: Start: 08-01-2010 End: 10-19-2010 Assay of thyroid stimulating hormone tsh [facility] Work Phone: Start: 08-01-2010 End: 08-01-2010 Follow Up as scheduled [facility] Work Phone: Start: 07-22-2010 End: 07-22-2010 Follow Up Appt 3 months Follow Up Appt 3 months [facility] Work Phone: Start: 07-22-2010 End: 07-22-2010 Follow Up Appt 3 months [facility] Work Phone: Start: 05-20-2010 End: 05-26-2010 Mammogram, Screening, both breasts Mammogram, Screening, both breasts [facility] Work Phone: Start: 05-20-2010 End: 05-26-2010 Mammogram, Screening, both breasts [facility] Work Phone: Start: 02-04-2010 End: 02-10-2010 Follow Up Appt 3 months Follow Up Appt 3 months [facility] Work Phone: Start: 02-04-2010 End: 02-10-2010 Follow Up Appt 3 months [facility] Work Phone: Start: 12-21-2009 End: 03-22-2011 Chest x-ray X-Ray, Chest, PA & Lateral [facility] Work Phone: Start: 12-21-2009 End: 12-21-2009 Follow Up Appt 3 months Follow Up Appt 3 months [facility] Work Phone: Start: 12-21-2009 End: 03-22-2011 Chest x-ray [facility] Work Phone: Start: 12-21-2009 End: 12-21-2009 Follow Up Appt 3 months [facility] Work Phone: Start: 2006 Pneumococcal vaccination PNEUMOCOCCAL VACCINE SERIES (1 of 2 - PCV13) [facility] Start: 1991 Colonoscopy COLON CANCER SCREENING DISCUSSION [facility] Start: 1991 Zoster vaccine hzv live for subcutaneous use ZOSTER (SHINGLES) VACCINE (1 of 2) [facility] Start: 1981 Screening mammography MAMMOGRAM SCREENING DISCUSSION [facility] Start: 1962 Screening for malignant neoplasm of cervix PAP SMEAR DISCUSSION [facility] Start: 1960 Third diphtheria, tetanus and acellular pertussis (DTaP) vaccination TDAP (ADULT) [facility] Start: 1959 Tetanus vaccination TETANUS [facility] Start: 1941 Screening for osteoporosis DEXA SCAN DISCUSSION [facility] Continuous pulse oximetry [facility] Patient Education [facility] Work Phone: Patient referral [facility] Work Phone: [facility] Walking distance 6 minutes [facility] Immunizations Immunization Date Immunization Notes Care Provider Fa vlad 07-22-2025 tetanus toxoid, redu shree diphtheria toxoid, and acellular pertussis vaccine, adsorbed Teagan Bosch [facility] Work Phone: [facility] 08-06-2023 influenza, injectabl e, quadrivalent, preservative free Dr. Todd Carbajal Work Phone: [facility] 08-07-[address] Todd Carbajal Work Phone: [facility] Payers Date Payer Category Payer Self-pay [id number] 2016 Medicare [id number] 2012 Private Health Insurance [id number] 2006 Medicare [id number] Unknown [id number] 2.16.8 [id number] Unknown [id number] 2.16.8 40.1.070026.3.579.2.462 Unknown [id number] 2.16.8 40.1.523577.3.579.2.462 Unknown [id number] 2.16.8 40.1.709625.3.579.2.462 Unknown [id number] 2.16.8 40.1.796924.3.579.2.462 Unknown [id number] 2.16.8 40.1.604061.3.579.2.462 Unknown [id number] 2.16.8 40.1.068402.3.579.2.462 Unknown [id number] 2.16.8 40.1.122237.3.579.2.462 Unknown [id number] 2.16.8 40.1.682489.3.579.2.462 Unknown [id number] 2.16.8 40.1.493990.3.579.2.462 Unknown [id number] 2.16.8 40.1.690044.3.579.2.462 Unknown [id number] 2.16.8 40.1.279883.3.579.2.462 Unknown [id number] 2.16.8 40.1.580957.3.579.2.462 Unknown [id number] 2.16.8 40.1.621282.3.579.2.462 Unknown [id number] 2.16.8 40.1.823320.3.579.2.462 Unknown [id number] 2.16.8 40.1.477632.3.579.2.462 Unknown [id number] 2.16.8 40.1.468798.3.579.2.462 Unknown [id number] 2.16.8 40.1.171108.3.579.2.462 Unknown [id number] 2.16.8 40.1.742488.3.579.2.462 Unknown [id number] 2.16.8 40.1.073595.3.579.2.462 Unknown [id number] 2.16.8 40.1.234013.3.579.2.462 Unknown [id number] 2.16.8 40.1.080117.3.579.2.462 Unknown [id number] 2.16.8 40.1.569541.3.579.2.462 Unknown [id number] 2.16.8 40.1.843282.3.579.2.462 Unknown [id number] 2.16.8 40.1.602613.3.579.2.462 Unknown [id number] 2.16.8 40.1.930702.3.579.2.462 Social History Date Type Detail Facility Start: 09-07-2013 End: 08-14-2025 Tobacco smoking status TNIS Former smoker [facility] End: 10-29-1981 History of tobacco use Current smoker [facility] End: 10-29-1981 History of tobacco use Cigarette Smoker [facility] Start: 09-07-2013 Cigarettes smoked current (pack per day) - Reported [facility] Start: 09-07-2013 Alcohol intake No [facility] Start: 01-26-2010 Alcohol Comment rarely [facility] Sex Assigned At Not on file [facility] Start: 02-14-2022 End: 08-14-2023 Tobacco smoking status [facility] Unknown if ever smoked [facility] Start: 03-08-2021 Rare [facility] Start: 03-08-2021 None [facility] Start: 03-08-2021 Alone [facility] Start: 03-08-2021 Non-smoker [facility] Start: 1940 Sex Assigned At Female [facility] Medical Equipment Procedure Code Equipment Code Equipment Origin al Text Equipment Identifier Dates Lead Medtronic 5 086 Mri 58 - [id number] Start: 07-31-2012 Lead Medtronic 5 086 Mri 58 - [id number] Start: 07-31-2012 Cardiac pacemaker, device (physical object) ([id number]) Pacer Medtronic Revomripeem - [id number] Start: 07-31-2012 ([id number]) Dual-chamber implantable pacemaker, rate-responsive ()[id number] FDA Start: 08-03-2025 Mental Status Date Assessment Result Facility 07-30-2025 Cognitive function Voice/Name [facility] Work Phone: 06-06-2022 Cognitive function Voice/Name [facility] Work Phone: Clinical Notes 02-27-2017 to 08-17-2025 Note Date & Type Note Facility 08-17-2025 Note HNO ID: [id number] Author: REGINA GOODMAN RT(R) Service: ? Author Type: General Internist Type: Progress Notes Filed: 08/17/2025 11:59 Note Text: Radiology Service Progress Note PATIENT NAME: Kim Cabrera DATE OF SERVICE: August 17, 2025 TIME: 11:59 AM PATIENT IDENTITY VERIFICATION COMPLETED USING TWO (2) IDENTIFIERS: Name and Date of confirmed by patient verbally. FALL SCREENING: Has the patient had 2 falls in the last year or 1 fall with injury or currently using an Ambulatory Assistive Device (Walker, Cane, Wheelchair, Crutches, etc.)? No PATIENT GENDER DATA: Assigned female at . status: : No status: NO. PATIENT RELEVANT IMPLANT DATA REVIEWED: Yes PATIENT PRESENTS WITH AN IMPLANTABLE OR ATTACHED ELECTRICAL MAINTENANCE ENGINEER: No RADIOLOGY DEPARTMENT: CT; Exam(s) Completed: Brain . Anesthesia: No PERIPHERAL IV DATA: Not applicable SIGNED BY: RT Elicia(R) August 17, 2025 11:59 AM [facility] 08-10-2025 Procedure note [facility] 07-27-2025 Note HNO ID: [id number] Author: RUDDY MORROW RPh Service: Pharmacy Author Type: Pharmacist Type: Plan of Care Filed: 07/27/2025 19:46 Note Text: DISCHARGE MEDICATION REVIEW BY PHARMACY Patient Name: Kim Cabrera Account #: Data Unavailable Admission Date: 07/22/2025 Date of Contact: July 27, 2025 Time of Contact: 7:46 PM Medication list was reviewed by a Pharmacist for drug interactions or drug related problems:Yes Below is a summary of pharmacist recommendations discussed with LIP: No recommendations at this time from discharge medication list. Ruddy Morrow RPh Pager: [phone] 07/27/2025 7:46 PM Medication List START taking these medications acetaminophen 325 mg tablet Commonly known as: TYLENOL Take 2 tablets by mouth every 4 hours as needed for pain. cholecalciferol 1,000 unit Tab tablet Commonly known as: VITAMIN D3 Take 1 tablet by mouth once daily. Patient should start on September 17, 2025. Start taking on: September 17, 2025 ergocalciferol (vitamin D2) 50,000 unit capsule Commonly known as: DRISDOL Take 1 capsule by mouth one time a week for 7 doses. Start taking on: July 30, 2025 melatonin 3 mg tablet Take 3 tablets by mouth daily at bedtime. CONTINUE taking these medications ARNUITY ELLIPTA 200 mcg/actuation inhaler Generic drug: fluticasone furoate atorvastatin 40 mg tablet Commonly known as: LIPITOR LASIX 40 mg tablet Generic drug: furosemide magnesium oxide 400 mg (241.3 mg magnesium) tablet Commonly known as: MAG-OX metoprolol tartrate (short acting) 25 mg tablet Commonly known as: LOPRESSOR oxybutynin ER 10 mg 24 hr tablet Commonly known as: DITROPAN XL pantoprazole DR 40 mg tablet Commonly known as: PROTONIX potassium chloride ER 20 mEq tablet Commonly known as: KLOR-CON sertraline 100 mg tablet Commonly known as: ZOLOFT spironolactone 25 mg tablet Commonly known as: ALDACTONE SYNTHROID 125 mcg tablet Generic drug: levothyroxine tamsulosin 0.4 mg Commonly known as: FLOMAX STOP taking these medications ELIQUIS 5 mg tab(s) Generic drug: apixaban nitrofurantoin monohydrate and macrocrystal 100 mg capsule Commonly known as: MACROBID [facility] 07-27-2025 Note HNO ID: [id number] Author: MAMIE MENDOZA RN Service: Care Management Author Type: Registered Nurse Type: Care Mgt Progress Note Filed: 07/27/2025 14:16 Note Text: CARE MANAGEMENT DISCHARGE NOTE SERVICE DATE: July 27, 2025 SERVICE TIME: 2:15 PM Admission Date: 07/22/2025 LOS: 4 days Discharge Arrangement Discharge Arrangement: Jail Facility Was an expedited discharge program used?: No Services Arranged Medical Services: Other: See Comment Caregiver Assessment Caregiver is ready, willing and able to meet the patient's needs as recommended by the inter-professional team: Yes Name of Caregiver: [place] Transportation Arrangements Transportation Arrangements: Ambulance Transportation Agency and Phone #:: [facility] ( [facility] ) [phone] / [phone] Date of Trip: 07/27/25 Time of Trip: 1900 Type of Service: BLS Non-emergency Is Patient Medicaid Pending?: No Was transportation financial coverage discussed with family?: Patient [place] Department Supervisor Location: [facility] Destination: [facility] Management Responsibility: None Additional Information: Patient discharging to [facility] via [facility] today at 1900. No auth needed, 7000 will be completed in [place] RN to call report and transport packet next to patient chart. Daughter updated via phone. SIGNATURE: Mamie Mendoza RN PATIENT NAME: Kim Cabrera DATE: July 27, 2025 TIME: 2:15 PM [facility] 07-27-2025 Note HNO ID: [id number] Author: MAMIE MENDOZA RN Service: Care Management Author Type: Registered Nurse Type: Care Mgt Progress Note Filed: 07/27/2025 14:17 Note Text: Attestation signed by Cl Tomas MD at 07/27/2025 2:19 PM Cl Tomas MD 2:18 PM July 27, 2025 Trauma Service Pager: For questions or concerns please page [phone]. After 5pm and on Weekends and Holidays, please page [phone] if in ICU or [phone] if on RNF. Physician Certification of Less Than 30 Days Skilled Needs Earliest Possible Discharge Date: 07/27/25 To the best of my knowledge, all information provided about the individual is a true and an accurate reflection of Kim Cabrera's needs. I certify that following the inpatient level of care, a post-acute nursing facility stay is required for less than 30 days related to the condition(s) for which the patient was treated during the inpatient level of care: Principal Problem: Trauma Active Problems: Subarachnoid hemorrhage following injury, no loss of consciousness (HCC) Intramuscular hematoma At risk for delirium Frailty syndrome in geriatric patient Prolonged QT interval Goals of care, counseling/discussion Full code status DNR (do not resuscitate) discussion ABLA (acute blood loss anemia) Resolved Problems: * No resolved hospital problems. * Attending Physician: Cl Tomas MD [facility] 07-27-2025 Note HNO ID: [id number] Author: JENS MELENDREZ PA-C Service: General Surgery Author Type: Physician Sliver Machine Operator Type: Progress Notes Filed: 07/27/2025 09:08 Note Text: Trauma Surgery Progress Note SERVICE DATE: 07/27/2025 Trauma Service Pager: For questions or concerns please page [phone]. After 5pm and on Weekends and Holidays, please page [phone] if in ICU or [phone] if on RNF. SUBJECTIVE: NAEON. Patient sleeping but easily awoken. No new focal concerns. Left flank soreness overnight which has resolved. Denies JAIMES or dizziness. No CP, sob, abdominal pain, n/v, chills or sweats. Reluctantly agreeable to SNF but would really like to go home. OBJECTIVE: Vitals: Temp (24hrs), Av.7 ?C (98.1 ?F), Min:36.6 ?C (97.8 ?F), Max:36.9 ?C (98.5 ?F) BP 105/56 Pulse 71 Temp 36.6 ?C (97.8 ?F) (Oral) Resp 15 Ht 172.7 cm (5' 8) Wt 87 kg (191 lb 12.8 oz) SpO2 94% BMI 29.16 kg/m? O2 Therapy: Room Air IANDO: Date 07/26/25 07 - 07/27/25 0659 07/27/25 07 - 07/28/25 0659 Shift 5824-0067 3422-2310 1899-1305 24 Hour Total 6730-4726 9588-7867 6547-2779 24 Hour Total INTAKE Shift Total OUTPUT Urine Urine Not Saved. 1 x 1 x 1 x 3 x # of BMs Number of BMs 1 x 1 x Shift Total Weight (kg) 87 87 87 87 87 87 87 87 MEDICATIONS Current Facility-Administered Medications Medication Dose Route Frequency ipratropium-albuterol 3 mL nebulizer solution (DUONEB) 3 mL INHALATION q 4 H while awake enoxaparin 30 mg injection (LOVENOX) 30 mg SUBCUTANEOUS q 12 HR atorvastatin 40 mg tab(s) (LIPITOR) 40 mg ORAL DAILY metoprolol tartrate (short acting) 12.5 mg tab(s) (LOPRESSOR) 12.5 mg ORAL BID levothyroxine 125 mcg tab(s) (SYNTHROID) 125 mcg ORAL BEFORE BREAKFAST DAILY polyethylene glycol 3350 17 g packet 17 g ORAL DAILY senna-docusate 8.6-50 mg 1 tablet (SENNA-S) 1 tablet ORAL BID prochlorperazine 5 mg tab(s) (COMPAZINE) 5 mg ORAL/FEEDING TUBE q 6 H PRN Or prochlorperazine 5 mg injection (COMPAZINE) 5 mg INTRAVENOUS q 6 H PRN sertraline 100 mg tab(s) (ZOLOFT) 100 mg ORAL DAILY acetaminophen 650 mg tab(s) (TYLENOL) 650 mg ORAL q 4 H PRN ergocalciferol (vitamin D2) 50,000 Units cap(s) (DRISDOL) 50,000 Units ORAL 1/WK melatonin 9 mg tab(s) 9 mg ORAL/FEEDING TUBE DAILY (8 PM) tamsulosin 0.4 mg cap(s) (FLOMAX) 0.4 mg ORAL AT BEDTIME NaCl 0.9% iv flush bag 20 mL INTRAVENOUS PRN Labs: Recent Labs 07/26/25 0555 07/25/25 0511 NA 138 137 K 3.7 4.0 CHLOR 103 102 CO2 25 26 BUN 13 14 CREAT 0.68 0.74 GLUC 97 105* ANION 10 9 CA 8.3* 8.7 WBC 5.90 6.56 HB 7.6* 8.0* HCT 24.3* 24.9* PLT 109* 104* PHYSICAL EXAM: Genl: Appears age appropriate. No acute distress. Resting comfortably. Head/Face: Normocephalic. Moderate right periorbital ecchymosis without significant swelling/edema. Eyes: EOMI. Sclera not icteric, not injected Neck: No mid-line masses. C-spine non-tender. Back: Extensive left flank ecchymosis/contusion extending into the lateral hip and thigh Resp: No audible wheezes. Breathing is non-labored on RA CVS: HR as above; 2+ pulses at RA, DP bilat. GI: Abdomen is soft, non-tender, not distended. No peritonitis. MSK: No obvious deformities. Ecchymosis left lateral hip/gluteus extending into left flank and distal into posterolateral right thigh Skin: Warm and dry. Not jaundiced. Neuro: AANDOx3. BLAIR. Gross motors and sensation intact. Speech clear. No facial droop. Follows commands. GCS 15. Psych: Normal mood and affect. ASSESSMENT AND PLAN: Active Hospital Problems Diagnosis Date Noted Trauma 07/23/2025 ABLA (acute blood loss anemia) 07/26/2025 Subarachnoid hemorrhage following injury, no loss of consciousness (HCC) 07/23/2025 Intramuscular hematoma 07/23/2025 At risk for delirium 07/23/2025 Frailty syndrome in geriatric patient 07/23/2025 Prolonged QT interval 07/23/2025 Goals of care, counseling/discussion 07/23/2025 Full code status 07/23/2025 DNR (do not resuscitate) discussion 07/23/2025 85 year old female s/p mechanical fall down 3-4 steps on Eliquis on 07/22/2025 (Level III trauma alert) Imaging performed: See chart review imaging tab Traumatic Injuries: Small amount of posttraumatic SAH in the anterior aspect of the sylvian fissure on the right Right periorbital ecchymosis Hematoma in the superior left gluteal region measuring 2.4 cm x 4 cm x 4.2 cm. There appears to be a small amount of contrast pooling suggestive of active bleeding. Mild compression deformity of T12 is age indeterminate Operations/Procedures: 1. None Care Plan: SAH NSGY consulted Non-op management Reportedly given PCC at [place] prior to transfer fro Eliquis reversal Repeat CT Brain stable (07/23) Hold Eliquis Ok for DVT chemo ppx Q4hr neuro checks PT/OT/RECORD CLERK Follow-up outpatient in [address] brain Left gluteal hematoma with possible active bleeding No signs of skin compromise on exam No fluctuance (more content not included)... [facility] 07-26-2025 Note HNO ID: [id number] Author: JANAY STEELE APRN.SOLE EDGE INKER MACHINE Service: General Surgery Author Type: Nurse Practitioner Type: Progress Notes Filed: 07/26/2025 15:44 Note Text: Trauma Surgery Progress Note SERVICE DATE: 07/26/2025 Trauma Service Pager: For questions or concerns Mon-Fri 6a-5p please page [phone]. After 5pm and on Weekends and Holidays, please page [phone] if in ICU or [phone] if on RNF. SUBJECTIVE: NAEON. Patient reports dizziness this morning but now resolved. Remains reluctantly agreeable to SNF placement. OBJECTIVE: Vitals: Temp (24hrs), Av.8 ?C (98.3 ?F), Min:36.6 ?C (97.8 ?F), Max:37.1 ?C (98.7 ?F) BP (!) 124/48 Pulse 70 Temp 36.9 ?C (98.4 ?F) (Oral) Resp 17 Ht 172.7 cm (5' 8) Wt 87 kg (191 lb 12.8 oz) SpO2 96% BMI 29.16 kg/m? O2 Therapy: Nasal Cannula IANDO: Date 07/25/25699 - 07/26/25 0659 07/26/25 0700 - 07/27/25 0659 Shift 7627-7062 5241-9427 3533-8694 24 Hour Total 9769-9337 8909-5188 6359-4475 24 Hour Total INTAKE PO 0 0 Supplements (mL) 0 0 Shift Total 0 0 OUTPUT Urine 200 200 Void (ml) 200 200 Urine Incontinence/Not Saved 1 x 1 x Urine Not Saved. 2 x 1 x 3 x # of BMs Number of BMs 1 x 1 x 2 x Shift Total 200 200 Weight (kg) 87 87 87 87 87 87 87 87 MEDICATIONS: Current Facility-Administered Medications Medication Dose Route Frequency ipratropium-albuterol 3 mL nebulizer solution (DUONEB) 3 mL INHALATION q 4 H while awake enoxaparin 30 mg injection (LOVENOX) 30 mg SUBCUTANEOUS q 12 HR atorvastatin 40 mg tab(s) (LIPITOR) 40 mg ORAL DAILY metoprolol tartrate (short acting) 12.5 mg tab(s) (LOPRESSOR) 12.5 mg ORAL BID levothyroxine 125 mcg tab(s) (SYNTHROID) 125 mcg ORAL BEFORE BREAKFAST DAILY polyethylene glycol 3350 17 g packet 17 g ORAL DAILY senna-docusate 8.6-50 mg 1 tablet (SENNA-S) 1 tablet ORAL BID prochlorperazine 5 mg tab(s) (COMPAZINE) 5 mg ORAL/FEEDING TUBE q 6 H PRN Or prochlorperazine 5 mg injection (COMPAZINE) 5 mg INTRAVENOUS q 6 H PRN sertraline 100 mg tab(s) (ZOLOFT) 100 mg ORAL DAILY acetaminophen 650 mg tab(s) (TYLENOL) 650 mg ORAL q 4 H PRN ergocalciferol (vitamin D2) 50,000 Units cap(s) (DRISDOL) 50,000 Units ORAL 1/WK melatonin 9 mg tab(s) 9 mg ORAL/FEEDING TUBE DAILY (8 PM) tamsulosin 0.4 mg cap(s) (FLOMAX) 0.4 mg ORAL AT BEDTIME phosphorus 250 mg tab(s) (K PHOS NEUTRAL) 250 mg ORAL PC and HS NaCl 0.9% iv flush bag 20 mL INTRAVENOUS PRN Labs: Recent Labs 07/26/25 0555 07/25/25 0511 NA 138 137 K 3.7 4.0 CHLOR 103 102 CO2 25 26 BUN 13 14 CREAT 0.68 0.74 GLUC 97 105* ANION 10 9 CA 8.3* 8.7 WBC 5.90 6.56 HB 7.6* 8.0* HCT 24.3* 24.9* PLT 109* 104* PHYSICAL EXAM: Genl: Appears age appropriate. No acute distress. Resting comfortably. Head/Face: Normocephalic. Right periorbital bruising. Eyes: EOMI. Sclera not icteric, not injected Resp: Breathing is non-labored on RA @94%. CVS: RRR as above; 2+ pulses at RA, DP, PT bilat. GI: Abdomen is soft, non-tender, not distended. Bowel sounds normoactive. No peritonitis. MSK: Extremities without clubbing, cyanosis, edema. Normal ROM x 4. Skin: Warm and dry. Not jaundiced. Neuro: AANDOx3. Strength and sensation normal. BLAIR. GCS15. Psych: Normal mood. Normal affect. Appropriate insight into current situation. ASSESSMENT AND PLAN: Assessment Active Hospital Problems Diagnosis Date Noted Trauma 07/23/2025 Subarachnoid hemorrhage following injury, no loss of consciousness (HCC) 07/23/2025 Intramuscular hematoma 07/23/2025 At risk for delirium 07/23/2025 Frailty syndrome in geriatric patient 07/23/2025 Prolonged QT interval 07/23/2025 Goals of care, counseling/discussion 07/23/2025 Full code status 07/23/2025 DNR (do not resuscitate) discussion 07/23/2025 Assessment: 85 year old female s/p mechanical fall down 3-4 steps on Eliquis (afib); transferred from [place] ED Imaging performed: CT HNF, CXR/PXR, XR L shoulder (07/22) @ [place] CT HCAP (07/23) Traumatic Injuries: Small acute subarachnoid hemorrhage in the right frontal and right occipital lobes Small left parietal occipital subgaleal hematoma Hematoma in the superior left gluteal region measuring 2.4 cm x 4 cm x 4.2 cm. There appears to be a small amount of contrast pooling suggestive of active bleeding. Operations/Procedures: 1. None Care Plan: SAH on Eliquis Neurosurgery consulted Non-op management PCC given 07/22 @ OSH Ok for DVT ppx Hold Eliquis until NSGY follow up Left flank/glute hematoma, ABLA Hg 8.0 from 7.6 VSS Skin intact Monitor Geriatrics consulted, appreciate recs Current diet order: DIET REGULAR Pain regimen: PRN tyelnol Bowel regimen: Senna-s, miralax Labs: As above PPX: DVT: Lovenox, SCDs, mobilize Ulcer: n/a Vit D level if > 65 yo: 7.6 - supplement PO Consulted Services: SICU Neurosurgery Geriatrics PT/OT RECORD CLERK Dispo Planning: PT/OT recs SNF. Case management following. Incid (more content not included)... [facility] 07-25-2025 Note HNO ID: [id number] Author: NATIVIDAD PRETTY, RN Service: Care Management Author Type: Registered Nurse Type: Care Mgt Progress Note Filed: 07/25/2025 14:34 Note Text: CARE MANAGEMENT PROGRESS NOTE SERVICE DATE: 07/25/2025 SERVICE TIME: 1432 LOS: 2 days Daughter now agreeable to SNF. SNF referral placed to [facility]); awaiting response. Will need accepting SNF, 3 [place], 7000, cot transport. SIGNATURE: Natividad Pretty RN PATIENT NAME: Kim Cabrera DATE: July 25, 2025 TIME: 2:32 PM [facility] 07-25-2025 Note HNO ID: [id number] Author: YEMI MAYES MD Service: General Surgery Author Type: Resident Type: Progress Notes Filed: 08/12/2025 13:54 Note Text: Attestation signed by Yemi Mayes MD at 08/12/2025 1:54 PM Attending Note I evaluated the patient and personally participated in the oneal components on 07/26/2025. I agree with the resident's findings and plan as documented and have discussed the case and management of the patient's care with the resident. Yemi Mayes MD Delayed entry . Trauma Surgery Progress Note SERVICE DATE: 07/26/2025 Trauma Service Pager: For questions or concerns Mon-Fri 6a-5p please page [phone]. After 5pm and on Weekends and Holidays, please page [phone] if in ICU or [phone] if on RNF. SUBJECTIVE: Patient seen this AM. States that she is doing fine. Denies any JAIMES or neuro deficits. Tolerating diet and having bowel function. OBJECTIVE: Vitals: Temp (24hrs), Av.9 ?C (98.5 ?F), Min:36.6 ?C (97.8 ?F), Max:37.4 ?C (99.4 ?F) BP (!) 124/48 Pulse 70 Temp 36.9 ?C (98.4 ?F) (Oral) Resp 17 Ht 172.7 cm (5' 8) Wt 87 kg (191 lb 12.8 oz) SpO2 96% BMI 29.16 kg/m? O2 Therapy: Nasal Cannula IANDO: Date 07/25/25699 - 07/26/25 0659 07/26/25 07 - 07/27/25 0659 Shift 3723-6199 2585-9994 6029-6756 24 Hour Total 9324-1507 6165-9145 2427-9328 24 Hour Total INTAKE PO 0 0 Supplements (mL) 0 0 Shift Total 0 0 OUTPUT Urine 200 200 Void (ml) 200 200 Urine Incontinence/Not Saved 1 x 1 x Urine Not Saved. 2 x 1 x 3 x # of BMs Number of BMs 1 x 1 x 2 x Shift Total 200 200 Weight (kg) 87 87 87 87 87 87 87 87 MEDICATIONS: Current Facility-Administered Medications Medication Dose Route Frequency ipratropium-albuterol 3 mL nebulizer solution (DUONEB) 3 mL INHALATION q 4 H while awake enoxaparin 30 mg injection (LOVENOX) 30 mg SUBCUTANEOUS q 12 HR atorvastatin 40 mg tab(s) (LIPITOR) 40 mg ORAL DAILY metoprolol tartrate (short acting) 12.5 mg tab(s) (LOPRESSOR) 12.5 mg ORAL BID levothyroxine 125 mcg tab(s) (SYNTHROID) 125 mcg ORAL BEFORE BREAKFAST DAILY polyethylene glycol 3350 17 g packet 17 g ORAL DAILY senna-docusate 8.6-50 mg 1 tablet (SENNA-S) 1 tablet ORAL BID prochlorperazine 5 mg tab(s) (COMPAZINE) 5 mg ORAL/FEEDING TUBE q 6 H PRN Or prochlorperazine 5 mg injection (COMPAZINE) 5 mg INTRAVENOUS q 6 H PRN sertraline 100 mg tab(s) (ZOLOFT) 100 mg ORAL DAILY acetaminophen 650 mg tab(s) (TYLENOL) 650 mg ORAL q 4 H PRN ergocalciferol (vitamin D2) 50,000 Units cap(s) (DRISDOL) 50,000 Units ORAL 1/WK melatonin 9 mg tab(s) 9 mg ORAL/FEEDING TUBE DAILY (8 PM) tamsulosin 0.4 mg cap(s) (FLOMAX) 0.4 mg ORAL AT BEDTIME phosphorus 250 mg tab(s) (K PHOS NEUTRAL) 250 mg ORAL PC and HS NaCl 0.9% iv flush bag 20 mL INTRAVENOUS PRN Labs: Recent Labs 07/25/25 0511 07/24/25 2220 07/24/25 1210 07/24/25 0600 07/23/25 0931 07/23/25 0247 NA 137 -- -- 139 -- 137 K 4.0 -- -- 4.1 -- 4.8 CHLOR 102 -- -- 104 -- 104 CO2 26 -- -- 25 -- 26 BUN 14 -- -- 14 -- 19 CREAT 0.74 -- -- 0.81 -- 0.84 GLUC 105* -- -- 109* -- 115* ANION 9 -- -- 10 -- 7* CA 8.7 -- -- 8.2* -- 8.8 MG -- -- -- -- -- 2.4* P -- -- -- -- -- 3.3 WBC 6.56 7.71 < > 6.95 < > 9.34 HB 8.0* 8.2* < > 8.2* < > 9.4* HCT 24.9* 26.0* < > 25.5* < > 29.8* PLT 104* 114* < > 103* < > 110* < > = values in this interval not displayed. PHYSICAL EXAM: GENERAL: Alert. No distress. Resting comfortably. NEURO: AANDOx3. No focal neurologic deficits. Sensation grossly intact. HEENT: Normocephalic. Scalp hematoma to left occipital region. Area of ecchymosis and swelling over right eyelid. EOMI. LUNGS: Unlabored breathing on RA. Equal excursion bilaterally. CARDIAC: Regular rate. Good perfusion throughout. ABDOMEN: Soft, non-tender, non-distended. No rebound or guarding. EXTREMITIES: BLAIR. No deformities. SKIN: No obvious jaundice or pallor. Turned patient to examine left gluteus, no obvious hematoma to visual inspection. ASSESSMENT AND PLAN: Assessment Active Hospital Problems Diagnosis Date Noted Trauma 07/23/2025 Subarachnoid hemorrhage following injury, no loss of consciousness (HCC) 07/23/2025 Intramuscular hematoma 07/23/2025 At risk for delirium 07/23/2025 Frailty syndrome in geriatric patient 07/23/2025 Prolonged QT interval 07/23/2025 Goals of care, counseling/discussion 07/23/2025 Full code status 07/23/2025 DNR (do not resuscitate) discussion 07/23/2025 This is a 85 year old female with CAD s/p CABG x2 (via redo sternotomy 2018), pAfib s/p Maze (on eliquis), emergent sternotomy for repair of left atrial laceration (2008), pacemaker, , pHTN, HTN diverticulosis, HLD, COPD, asthma, EDWAR, depression, hypothyroidism who presents at a T3 activation s/p fall down 3-4 (more content not included)... [facility] 07-24-2025 Note HNO ID: [id number] Author: SHADI HOOPER RN Service: Care Management Author Type: Registered Nurse Type: Care Mgt Initial Assessment Filed: 07/24/2025 15:09 Note Text: CARE MANAGEMENT: ASSESSMENT AND DISCHARGE PLAN SERVICE DATE: July 24, 2025 SERVICE TIME: 3:05 PM PCP: Todd Carbajal DO Primary Contact: Extended Emergency Contact Information Primary Emergency Contact: KENYA SMITH Mobile Relation: Daughter Secondary Emergency Contact: Magdalena Dodge Mobile Relation: Friend Admission Status: Inpatient Insurance Provider: MEDICARE A AND B Discharge Planning requested by: Per Department Practice Potential Transition Plans Home, Home Care, Jail Facility/Intermediate Care Facility, To Be Determined Advance Directives Current Advance Directive: None Research Project Coordinator Attempted to Assist with AD Completion: No Current Living Arrangements and Support Lives with: Friends Type of Residence: Private Residence (House) Does the patient have to climb stairs at home?: Yes Support: How do you manage to accomplish the following: Independent: Ambulation, Bathe/Shower, Dress, Meals/Meal Prep, Going to the bathroom, Medication Management Discharge Planning Patient Goal(s): Be able to go home, General wellness [place] of Choice Explained: [place] of Choice Given: Yes Level of Care Discussed: Home Care Are you interested in bedside delivery of your medications? No Discharge Planning Participant(s): Patient Patient/Family Comments: Pt friend Magdalena on phone Caregiver Assessment: Caregiver is ready, willing and able to meet the patient's needs as recommended by the inter-professional team: Other: See Comment Transport at Discharge: Transportation Arrangements: To Be Determined Needs Prior to Discharge: Needs Prior to Discharge: To Be Determined Post-Acute Discharge Plan: Pt lives with friend Magdalena. They share expenses and both are fairly I [facility]. Pt has walker and cane. Pt has O2 at home 1L and wears at night. Rubin is provider. Reviewed therapy rec for SNF. Pt declines at this time - She requests referral to [facility]. SIGNATURE: Shadi Hooper RN PATIENT NAME: Kim Cabrera DATE: July 24, 2025 TIME: 3:05 PM [facility] 07-24-2025 Note HNO ID: [id number] Author: YEMI MYAES MD Service: General Surgery Author Type: Resident Type: Progress Notes Filed: 08/04/2025 16:48 Note Text: Attestation signed by Yemi Mayes MD at 08/04/2025 4:48 PM Attending Note I evaluated the patient and personally participated in the oneal components on 07/24/2025 I agree with the resident's findings and plan as documented and have discussed the case and management of the patient's care with the resident. Yemi Mayes MD Delayed entry . Trauma Surgery Progress Note SERVICE DATE: 07/24/2025 Trauma Service Pager: For questions or concerns Mon-Fri 6a-5p please page [phone]. After 5pm and on Weekends and Holidays, please page [phone] if in ICU or [phone] if on RNF. SUBJECTIVE: Pt seen and examined this AM. She is alert and oriented. Pain controlled this AM. OBJECTIVE: Vitals: Temp (24hrs), Av.8 ?C (98.2 ?F), Min:36.5 ?C (97.7 ?F), Max:37 ?C (98.6 ?F) BP 123/54 Pulse 70 Temp 36.8 ?C (98.2 ?F) (Oral) Resp 22 Ht 172.7 cm (5' 8) Wt 87.7 kg (193 lb 5.5 oz) SpO2 96% BMI 29.40 kg/m? O2 Therapy: Room Air IANDO: Date 07/23/25699 - 07/24/2565807/24/25699 - 07/25/25 0659 Shift 6782-6620 8233-8370 1378-1178 24 Hour Total 8450-9058 0578-5214 0358-1357 24 Hour Total INTAKE PO 370 100 470 PO 370 100 470 IV 700 700 Volume (mL) (NaCl 0.9% iv flush bag) 50 50 Volume (mL) (sodium phosphate 45 mmol in D5W 250 mL) 250 250 Volume (mL) (NaCl 0.9% iv infusion) 400 400 Shift Total 700 904 785 4909 OUTPUT Urine 300 425 725 Void (ml) 300 425 725 # of BMs Number of BMs 1 x 1 x Shift Total 300 425 725 Weight (kg) 83.8 83.8 87.7 87.7 87.7 87.7 87.7 87.7 MEDICATIONS: Current Facility-Administered Medications Medication Dose Route Frequency atorvastatin 40 mg tab(s) (LIPITOR) 40 mg ORAL DAILY metoprolol tartrate (short acting) 12.5 mg tab(s) (LOPRESSOR) 12.5 mg ORAL BID levothyroxine 125 mcg tab(s) (SYNTHROID) 125 mcg ORAL BEFORE BREAKFAST DAILY polyethylene glycol 3350 17 g packet 17 g ORAL DAILY senna-docusate 8.6-50 mg 1 tablet (SENNA-S) 1 tablet ORAL BID prochlorperazine 5 mg tab(s) (COMPAZINE) 5 mg ORAL/FEEDING TUBE q 6 H PRN Or prochlorperazine 5 mg injection (COMPAZINE) 5 mg INTRAVENOUS q 6 H PRN calcium gluconate iv piggyback 2 g in NaCl (iso-osmotic) 100 mL 2 g INTRAVENOUS PRN(NO DISPENSE) sertraline 100 mg tab(s) (ZOLOFT) 100 mg ORAL DAILY acetaminophen 650 mg tab(s) (TYLENOL) 650 mg ORAL q 4 H PRN ergocalciferol (vitamin D2) 50,000 Units cap(s) (DRISDOL) 50,000 Units ORAL 1/WK melatonin 9 mg tab(s) 9 mg ORAL/FEEDING TUBE DAILY (8 PM) tamsulosin 0.4 mg cap(s) (FLOMAX) 0.4 mg ORAL AT BEDTIME phosphorus 250 mg tab(s) (K PHOS NEUTRAL) 250 mg ORAL PC and HS NaCl 0.9% iv flush bag 20 mL INTRAVENOUS PRN Labs: Recent Labs 07/24/25 1210 07/24/25 0600 07/23/25 0931 07/23/25 0247 07/22/25 2331 NA -- 139 -- 137 139 K -- 4.1 -- 4.8 4.9 CHLOR -- 104 -- 104 104 CO2 -- 25 -- 26 25 BUN -- 14 -- 19 20 CREAT -- 0.81 -- 0.84 0.84 GLUC -- 109* -- 115* 122* ANION -- 10 -- 7* 10 CA -- 8.2* -- 8.8 8.9 MG -- -- -- 2.4* -- P -- -- -- 3.3 -- ALB -- -- -- -- 4.0 AST -- -- -- -- 20 ALT -- -- -- -- 9 ALKPHOS -- -- -- -- 68 TBILI -- -- -- -- 0.7 WBC 6.65 6.95 < > 9.34 9.88 HB 8.2* 8.2* < > 9.4* 9.6* HCT 26.0* 25.5* < > 29.8* 30.6* PLT 106* 103* < > 110* 122* INR -- -- -- -- 1.1 < > = values in this interval not displayed. PHYSICAL EXAM: GENERAL: Alert. No distress. Resting comfortably. NEURO: AANDOx3. No focal neurologic deficits. Sensation grossly intact. HEENT: Normocephalic. Scalp hematoma to left occipital region. Area of ecchymosis and swelling over right eyelid. EOMI. LUNGS: Unlabored breathing on RA. Equal excursion bilaterally. CARDIAC: Regular rate. Good perfusion throughout. ABDOMEN: Soft, non-tender, non-distended. No rebound or guarding. EXTREMITIES: BLAIR. No deformities. SKIN: No obvious jaundice or pallor. Turned patient to examine left gluteus, no obvious hematoma to visual inspection. ASSESSMENT AND PLAN: Assessment Active Hospital Problems Diagnosis Date Noted Trauma 07/23/2025 Subarachnoid hemorrhage following injury, no loss of consciousness (HCC) 07/23/2025 Intramuscular hematoma 07/23/2025 At risk for delirium 07/23/2025 Frailty syndrome in geriatric patient 07/23/2025 Prolonged QT interval 07/23/2025 Goals of care, counseling/discussion 07/23/2025 Full code status 07/23/2025 DNR (do not resuscitate) discussion 07/23/2025 This is a 85 year old female with CAD s/p CABG x2 (via redo sternotomy 2018), pAfib s/p Maze (on eliquis), emergent sternotomy for repair of left atrial laceration (2008), pacemaker, , pHTN, HTN diverticulosis, HLD, COPD, asthma (more content not included)... [facility] 07-24-2025 Note HNO ID: [id number] Author: CHELSIE RAY PA-C Service: Neurosurgery Author Type: Physician Sliver Machine Operator Type: Progress Notes Filed: 07/24/2025 13:47 Note Text: Neurosurgery Progress Note SERVICE DATE: 07/24/2025 SUBJECTIVE: NAEON. Reports minimal JAIMES this am. Denies n/v. OBJECTIVE: Vitals: Temp (24hrs), Av.9 ?C (98.4 ?F), Min:36.5 ?C (97.7 ?F), Max:37 ?C (98.6 ?F) BP (!) 117/49 Pulse 70 Temp 37 ?C (98.6 ?F) (Oral) Resp 19 Ht 172.7 cm (5' 8) Wt 87.7 kg (193 lb 5.5 oz) SpO2 96% BMI 29.40 kg/m? O2 Therapy: Nasal Cannula IANDO: Date 07/23/25699 - 07/24/25 0659 07/24/25 07 - 07/25/25 0659 Shift 5362-4324 3171-0211 0589-2750 24 Hour Total 3018-4987 5554-6937 9505-8824 24 Hour Total INTAKE PO 370 370 PO 370 370 IV 700 700 Volume (mL) (NaCl 0.9% iv flush bag) 50 50 Volume (mL) (sodium phosphate 45 mmol in D5W 250 mL) 250 250 Volume (mL) (NaCl 0.9% iv infusion) 400 400 Shift Total 444 451 8795 OUTPUT Urine 300 425 725 Void (ml) 300 425 725 # of BMs Number of BMs 1 x 1 x Shift Total 300 425 725 Weight (kg) 83.8 83.8 87.7 87.7 87.7 87.7 87.7 87.7 MEDICATIONS Current Facility-Administered Medications Medication Dose Route Frequency atorvastatin 40 mg tab(s) (LIPITOR) 40 mg ORAL DAILY metoprolol tartrate (short acting) 12.5 mg tab(s) (LOPRESSOR) 12.5 mg ORAL BID levothyroxine 125 mcg tab(s) (SYNTHROID) 125 mcg ORAL BEFORE BREAKFAST DAILY polyethylene glycol 3350 17 g packet 17 g ORAL DAILY senna-docusate 8.6-50 mg 1 tablet (SENNA-S) 1 tablet ORAL BID prochlorperazine 5 mg tab(s) (COMPAZINE) 5 mg ORAL/FEEDING TUBE q 6 H PRN Or prochlorperazine 5 mg injection (COMPAZINE) 5 mg INTRAVENOUS q 6 H PRN calcium gluconate iv piggyback 2 g in NaCl (iso-osmotic) 100 mL 2 g INTRAVENOUS PRN(NO DISPENSE) sertraline 100 mg tab(s) (ZOLOFT) 100 mg ORAL DAILY acetaminophen 650 mg tab(s) (TYLENOL) 650 mg ORAL q 4 H PRN oxyCODONE IR 2.5 mg tab(s) (ROXICODONE) 2.5 mg ORAL q 6 H PRN ergocalciferol (vitamin D2) 50,000 Units cap(s) (DRISDOL) 50,000 Units ORAL 1/WK melatonin 9 mg tab(s) 9 mg ORAL/FEEDING TUBE DAILY (8 PM) tamsulosin 0.4 mg cap(s) (FLOMAX) 0.4 mg ORAL AT BEDTIME phosphorus 250 mg tab(s) (K PHOS NEUTRAL) 250 mg ORAL PC and HS NaCl 0.9% iv flush bag 20 mL INTRAVENOUS PRN Labs: Recent Labs 07/24/25 0600 07/23/25 2156 07/23/25 0931 07/23/25 0247 07/22/25 2331 NA 139 -- -- 137 139 K 4.1 -- -- 4.8 4.9 CHLOR 104 -- -- 104 104 CO2 25 -- -- 26 25 BUN 14 -- -- 19 20 CREAT 0.81 -- -- 0.84 0.84 GLUC 109* -- -- 115* 122* ANION 10 -- -- 7* 10 CA 8.2* -- -- 8.8 8.9 MG -- -- -- 2.4* -- P -- -- -- 3.3 -- ALB -- -- -- -- 4.0 AST -- -- -- -- 20 ALT -- -- -- -- 9 ALKPHOS -- -- -- -- 68 TBILI -- -- -- -- 0.7 WBC 6.95 8.57 < > 9.34 9.88 HB 8.2* 8.7* < > 9.4* 9.6* HCT 25.5* 26.7* < > 29.8* 30.6* PLT 103* 116* < > 110* 122* INR -- -- -- -- 1.1 < > = values in this interval not displayed. Exam: GENERAL: Awake and alert; NAD NEURO: Orientedx3; speech clear and fluent; BLAIR; no apparent arm drift STRENGTH: 5/5 throughout HEENT: Normocephalic; traumatic; perrl/eomi LUNGS: Unlabored breathing CARDIAC: Rate and rhythm as above EXTREMITIES: No deformities, No edema SKIN: Skin color normal; Temperature normal; no rashes or lesions ASSESSMENT AND PLAN: Kim Cabrera is a 85 year old female, on Eliquis, presenting after fall with head injury, found to have traumatic SAH. -Neuro as above -Imaging reviewed: rCTH performed yesterday stable -No acute surgical intervention -Continue to hold AC/AP until follow up -No Keppra -RNF -Hold chemo ppx. Ok for DVT ppx 48hrs following stable scan yesterday -Follow up previously requested for in 2 weeks with rCTH; neurosurgery will sign off; reach out with questions as needed Parts of this note may have been copied from one of my previous notes and remain pertinent. The documentation has been reviewed and edited as necessary to support the clinical decision making for today's visit. SIGNATURE: Chelsie Ray PA-C PATIENT NAME: Kim Cabrera DATE: July 24, 2025 TIME: 6:55 AM Pager: [phone] [facility] 07-24-2025 Note HNO ID: [id number] Author: KARIS PERAZA MD Service: General Surgery Author Type: ? Type: Progress Notes Filed: 07/24/2025 16:08 Note Text: Attestation signed by Karis Peraza MD at 07/24/2025 4:08 PM TEACHING PROVIDER (Physician/PA/ANGELIKA) NOTE OF PERSONAL INVOLVEMENT IN CARE: I have personally seen and examined the patient and performed the medical decision-making components. I have reviewed the Medical Student's documentation and verified the findings in the note as written. Any additions or changes are noted in bold/italics. Signature: Karis Peraza MD Date: 07/24/2025 Time: 4:08 PM INPATIENT SICU PROGRESS NOTE SERVICE DATE: 07/24/2025 SERVICE TIME: 5:22 AM Subjective NAEON. Patient seen and examined this morning. Denies any pain, numbness, tingling, or weakness. Tolerating diet without nausea or vomiting. Endorses BM. HDS. Saturating well on RA. Hgb stable. Current Facility-Administered Medications Medication Dose Route Frequency NaCl 0.9% iv flush bag 20 mL INTRAVENOUS PRN atorvastatin 40 mg tab(s) (LIPITOR) 40 mg ORAL DAILY metoprolol tartrate (short acting) 12.5 mg tab(s) (LOPRESSOR) 12.5 mg ORAL BID levothyroxine 125 mcg tab(s) (SYNTHROID) 125 mcg ORAL BEFORE BREAKFAST DAILY polyethylene glycol 3350 17 g packet 17 g ORAL DAILY senna-docusate 8.6-50 mg 1 tablet (SENNA-S) 1 tablet ORAL BID prochlorperazine 5 mg tab(s) (COMPAZINE) 5 mg ORAL/FEEDING TUBE q 6 H PRN Or prochlorperazine 5 mg injection (COMPAZINE) 5 mg INTRAVENOUS q 6 H PRN calcium gluconate iv piggyback 2 g in NaCl (iso-osmotic) 100 mL 2 g INTRAVENOUS PRN(NO DISPENSE) sertraline 100 mg tab(s) (ZOLOFT) 100 mg ORAL DAILY acetaminophen 650 mg tab(s) (TYLENOL) 650 mg ORAL q 4 H PRN oxyCODONE IR 2.5 mg tab(s) (ROXICODONE) 2.5 mg ORAL q 6 H PRN ergocalciferol (vitamin D2) 50,000 Units cap(s) (DRISDOL) 50,000 Units ORAL 1/WK Followed by [START ON 09/17/2025] cholecalciferol 1,000 Units tab(s) (VITAMIN D3) 1,000 Units ORAL DAILY melatonin 9 mg tab(s) 9 mg ORAL/FEEDING TUBE DAILY (8 PM) tamsulosin 0.4 mg cap(s) (FLOMAX) 0.4 mg ORAL AT BEDTIME phosphorus 250 mg tab(s) (K PHOS NEUTRAL) 250 mg ORAL PC and HS Objective VITAL SIGNS BP 119/46 Pulse 70 Temp (Src) 98.4 (Oral) Resp 21 Ht 5' 8 (1.73m) Wt 184 lb 11.9 oz (83.8kg) SpO2 95% BMI 28.10 kg/(m2). O2 Therapy: Nasal Cannula, Liters (Numeric Only): 2 Temp (24hrs), Av.9 ?C (98.4 ?F), Min:36.5 ?C (97.7 ?F), Max:37 ?C (98.6 ?F) Date 07/23/25 07 - 07/24/25 0659 07/24/25 07 - 07/25/25 0659 Shift 8313-2129 6196-8121 0150-3449 24 Hour Total 5504-6518 2777-3335 7439-3385 24 Hour Total INTAKE PO 370 370 PO 370 370 IV 700 700 Volume (mL) (NaCl 0.9% iv flush bag) 50 50 Volume (mL) (sodium phosphate 45 mmol in D5W 250 mL) 250 250 Volume (mL) (NaCl 0.9% iv infusion) 400 400 Shift Total 270 827 7362 OUTPUT Urine 300 425 725 Void (ml) 300 425 725 # of BMs Number of BMs 1 x 1 x Shift Total 300 425 725 Weight (kg) 83.8 83.8 83.8 83.8 83.8 83.8 83.8 83.8 PHYSICAL EXAM: GENERAL: Alert. No distress. Resting comfortably. NEURO: AANDOx3. No focal neurologic deficits. Sensation grossly intact. HEENT: Normocephalic. Ecchymosis around R eye EOMI. LUNGS: Unlabored breathing. Equal excursion bilaterally. CARDIAC: Regular rate, on tele, Good perfusion throughout. ABDOMEN: Soft, non-tender, non-distended. No rebound or guarding. EXTREMITIES: BLAIR. No deformities. SKIN: No obvious jaundice or pallor. DATA: Diagnostic tests reviewed for today's visit: No results for input(s): BODSITE, CTYPE, PH, PCO2, PO2, BE, HCO3, CO2CT, O2HB, COHB, MHGB, TEMP, PHTC, PCO2T, PO2T, O2AD in the last 72 hours. Recent Labs 07/23/25 2156 07/23/25 1632 07/23/25 0931 07/23/25 0247 07/22/25 2331 CREAT -- -- -- 0.84 0.84 BUN -- -- -- 19 20 NA -- -- -- 137 139 K -- -- -- 4.8 4.9 CHLOR -- -- -- 104 104 CO2 -- -- -- 26 25 ANION -- -- -- 7* 10 GLUC -- -- -- 115* 122* CA -- -- -- 8.8 8.9 P -- -- -- 3.3 -- MG -- -- -- 2.4* -- ALB -- -- -- -- 4.0 AST -- -- -- -- 20 ALT -- -- -- -- 9 ALKPHOS -- -- -- -- 68 TBILI -- -- -- -- 0.7 WBC 8.57 9.46 6.63 9.34 9.88 HB 8.7* 8.8* 8.9* 9.4* 9.6* HCT 26.7* 28.9* 28.5* 29.8* 30.6* PLT 116* 113* 113* 110* 122* Assessment AND Plan ACTIVE PROBLEM LIST Renal Artery Stenosis Family History of Malignant Neoplasm of Gastrointestinal Tract Subarachnoid Hemorrhage Following Injury, No Loss of Consciousness (Hcc) Trauma Intramuscular Hematoma At Risk for Delirium Frailty Syndrome in Geriatric Patient Prolonged Qt Interval Goals of Care, Counseling/Discussion Full Code Status Dnr (Do Not Resuscitate) Discussion Assessment and Plan: This is a 85 year old female with CAD (more content not included)... [facility] 07-23-2025 Note HNO ID: [id number] Author: ?, ?, ? Service: Pharmacy Author Type: General Internist Type: Plan of Care Filed: 07/23/2025 12:31 Note Text: PHARMACY MEDICATION REVIEW Patient Name: Kim Cabrera : 1940 The following medications were updated within the [facility] medication list: Medications ADDED to [facility] medication list apixaban (ELIQUIS) 5 mg tab(s) Take 5 mg by mouth two times a day. magnesium oxide (MAG-OX) 400 mg (241.3 mg magnesium) tablet Take 400 mg by mouth once daily. Medications CHANGED on [facility] medication list Medications REMOVED from [facility] medication list Additional comments: Verified medication information with e-scripts/dispense report and chart review. Confirmed medications with patient. Patient stated taking Eliquis and magnesium - added to med list. Patient stated taking Eliquis - found no current fill date. Required follow up actions for nursing: None The below information represents the best possible medication history: Yes Medication history completed by: General Internist: Josee Le (Brick Mason) Source of history: Patient: Reliability of source: Appears reliable, clearly identified: Medication name, Medication dose, Medication route, and Medication frequency, Pharmacy records: e-scripts/dispense report, and [facility] records Medication nonadherence identified: No barriers noted Reconciliation completed: No, pharmacist not yet reviewed Patient interested in Bedside Delivery Services or using OP Pharmacy at discharge? Unable to assess Preferred outpatient pharmacy: [facility] [address] [place] [phone] [id number] [facility] [phone] [facility] Allergies: No Known Allergies Prior to Admission Medications Prescriptions Last Dose Informant Patient Reported? Taking? apixaban (ELIQUIS) 5 mg tab(s) Yes Yes Sig: Take 5 mg by mouth two times a day. atorvastatin (LIPITOR) 40 mg tablet Yes Yes Sig: Take 40 mg by mouth once daily. fluticasone furoate (ARNUITY ELLIPTA) 200 mcg/actuation inhaler Yes Yes Sig: Inhale 1 puff as instructed once daily. furosemide (LASIX) 40 mg tablet Yes Yes Sig: Take 40 mg by mouth once daily. levothyroxine (SYNTHROID) 125 mcg tablet Yes Yes Sig: Take 125 mcg by mouth daily before breakfast. magnesium oxide (MAG-OX) 400 mg (241.3 mg magnesium) tablet Yes Yes Sig: Take 400 mg by mouth once daily. metoprolol tartrate, short acting, (LOPRESSOR) 25 mg tablet Yes Yes Sig: Take 12.5 mg by mouth two times a day. nitrofurantoin monohydrate and macrocrystal (MACROBID) 100 mg capsule Yes Yes Sig: Take 100 mg by mouth two times a day with meals. X5 days oxybutynin ER (DITROPAN XL) 10 mg 24 hr tablet Yes Yes Sig: Take 10 mg by mouth once daily. pantoprazole DR (PROTONIX) 40 mg tablet Yes Yes Sig: Take 40 mg by mouth once daily. potassium chloride ER (KLOR-CON) 20 mEq tablet Yes Yes Sig: Take 20 mEq by mouth once daily. sertraline (ZOLOFT) 100 mg tablet Yes Yes Sig: Take 100 mg by mouth once daily. spironolactone (ALDACTONE) 25 mg tablet Yes Yes Sig: Take 25 mg by mouth once daily. tamsulosin (FLOMAX) 0.4 mg Yes Yes Sig: Take 0.4 mg by mouth once daily. Facility-Administered Medications: None Josee Le (Brick Mason)[id number] 07/23/2025 [facility] 07-23-2025 Note HNO ID: [id number] Author: AUGUST CALIX MD Service: General Surgery Author Type: Resident Type: Progress Notes Filed: 07/29/2025 15:35 Note Text: Attestation signed by August Calix MD at 07/29/2025 3:35 PM Attending Note I have seen and evaluated the patient. I have reviewed the imaging, lab results and examined the patient personally. I have created and discussed the care plan and agree with documentation above as provided by the Advanced Practice Provider/resident. See attestation from [facility]P on same date August Calix MD Department of General Surgery Section of Trauma, Surgery Critical Care, and Acute Care Surgery Trauma Surgery Progress Note SERVICE DATE: 07/23/2025 Trauma Service Pager: For questions or concerns Mon-Fri 6a-5p please page [phone]. After 5pm and on Weekends and Holidays, please page [phone] if in ICU or [phone] if on RNF. SUBJECTIVE: Pt seen and examined this AM. She is alert and oriented. Pain controlled this AM. OBJECTIVE: Vitals: Temp (24hrs), Av.6 ?C (97.9 ?F), Min:36.5 ?C (97.7 ?F), Max:36.7 ?C (98 ?F) BP 103/50 Pulse 70 Temp 36.5 ?C (97.7 ?F) (Oral) Resp 16 Ht 172.7 cm (5' 8) Wt 83.8 kg (184 lb 11.9 oz) SpO2 96% BMI 28.09 kg/m? O2 Therapy: Nasal Cannula IANDO: Date 07/22/25699 - 07/23/25 0659 07/23/25 07 - 07/24/25 0659 Shift 7889-8893 9538-6619 8779-1517 24 Hour Total 4836-7473 9002-1505 4072-0127 24 Hour Total INTAKE IV 357 357 Volume (mL) (NaCl 0.9% iv infusion) 357 357 Shift Total 357 357 OUTPUT Urine 500 500 Straight cath (ml) 500 500 Shift Total 500 500 Weight (kg) 95.3 83.8 83.8 83.8 83.8 83.8 83.8 MEDICATIONS: Current Facility-Administered Medications Medication Dose Route Frequency atorvastatin 40 mg tab(s) (LIPITOR) 40 mg ORAL DAILY metoprolol tartrate (short acting) 12.5 mg tab(s) (LOPRESSOR) 12.5 mg ORAL BID levothyroxine 125 mcg tab(s) (SYNTHROID) 125 mcg ORAL BEFORE BREAKFAST DAILY potassium chloride ER 20-40 mEq tab(s) (KLOR-CON) 20-40 mEq ORAL/FEEDING TUBE PRN Or potassium chloride iv piggyback 20 mEq/100 mL 20 mEq INTRAVENOUS PRN magnesium sulfate iv piggyback in sterile water 2 g 50 mL 2 g INTRAVENOUS PRN phosphorus 500 mg tab(s) (K PHOS NEUTRAL) 500 mg ORAL/FEEDING TUBE PRN(NO DISPENSE) calcium gluconate iv piggyback 2 g in NaCl (iso-osmotic) 100 mL 2 g INTRAVENOUS PRN(NO DISPENSE) sodium phosphate 30 mmol in D5W 250 mL 30 mmol INTRAVENOUS PRN(NO DISPENSE) Or sodium phosphate 45 mmol in D5W 250 mL 45 mmol INTRAVENOUS PRN(NO DISPENSE) NaCl 0.9% iv infusion 75 mL/hr INTRAVENOUS CONTINUOUS polyethylene glycol 3350 17 g packet 17 g ORAL DAILY senna-docusate 8.6-50 mg 1 tablet (SENNA-S) 1 tablet ORAL BID acetaminophen 975 mg tab(s) (TYLENOL) 975 mg ORAL q 6 H oxyCODONE IR 2.5-5 mg tab(s) (ROXICODONE) 2.5-5 mg ORAL q 4 H PRN fentaNYL 50 mcg/mL 25 mcg injection (SUBLIMAZE) 25 mcg INTRAVENOUS q 2 H PRN prochlorperazine 5 mg tab(s) (COMPAZINE) 5 mg ORAL/FEEDING TUBE q 6 H PRN Or prochlorperazine 5 mg injection (COMPAZINE) 5 mg INTRAVENOUS q 6 H PRN NaCl 0.9% iv flush bag 20 mL INTRAVENOUS PRN iv contrast (radiology procedure) INTRAVENOUS DIRECTED PRN iv contrast (radiology procedure) INTRAVENOUS DIRECTED PRN Labs: Recent Labs 07/23/25 0247 07/22/25 2331 NA 137 139 K 4.8 4.9 CHLOR 104 104 CO2 26 25 BUN 19 20 CREAT 0.84 0.84 GLUC 115* 122* ANION 7* 10 CA 8.8 8.9 MG 2.4* -- P 3.3 -- ALB -- 4.0 AST -- 20 ALT -- 9 ALKPHOS -- 68 TBILI -- 0.7 WBC 9.34 9.88 HB 9.4* 9.6* HCT 29.8* 30.6* PLT 110* 122* INR -- 1.1 PHYSICAL EXAM: GENERAL: Alert. No distress. Resting comfortably. NEURO: AANDOx3. No focal neurologic deficits. Sensation grossly intact. HEENT: Normocephalic. Scalp hematoma to left occipital region. Area of ecchymosis and swelling over right eyelid. EOMI. LUNGS: Unlabored breathing on RA. Equal excursion bilaterally. CARDIAC: Regular rate. Good perfusion throughout. ABDOMEN: Soft, non-tender, non-distended. No rebound or guarding. EXTREMITIES: BLAIR. No deformities. SKIN: No obvious jaundice or pallor. Turned patient to examine left gluteus, no obvious hematoma to visual inspection. ASSESSMENT AND PLAN: Assessment Active Hospital Problems Diagnosis Date Noted Trauma 07/23/2025 Subarachnoid hemorrhage following injury, no loss of consciousness (HCC) 07/23/2025 This is a 85 year old female with CAD s/p CABG x2 (via redo sternotomy 2018), pAfib s/p Maze (on eliquis), emergent sternotomy for repair of left atrial laceration (2008), pacemaker, , pHTN, HTN diverticulosis, HLD, COPD, asthma, EDWAR, depression, hypothyroidism who presents at a T3 activation s/p fall down 3-4 steps on 07/23 Imaging performed: - CTHN, CXR, PXR Traumatic Injuries: - small amnt posttraum (more content not included)... [facility] 07-23-2025 Note HNO ID: [id number] Author: KARIS PERAZA MD Service: General Surgery Author Type: ? Type: Progress Notes Filed: 07/23/2025 12:56 Note Text: Attestation signed by Karis Peraza MD at 07/23/2025 12:56 PM - patient alert and oriented - home medications continued as appropriate. Noted features of heart failure on CT consistent with recent echo findings. Will need continue outpatient follow up for the findings of this echo - hgb checks q24 hours - to floor later today pending discussion with neurosurgery I provided 35 minutes of critical care services which were necessary due to specified injuries and illnesses, evaluated system by system and not limited to antibiotic therapy indication, nutrition assessment and supplementation, electrolyte correction, and prevention of ICU related complications using ventilator bundle, sedation holiday and removal of lines and tubes where indicated. This patient has a high probability of sudden, clinical significant deterioration. This required the highest level of care and preparedness to intervene urgently. I managed and supervised life or organ supporting interventions that require frequent assessments; management included sedation, pain control, ventilator weaning and extubation assessment as indicated. This time does not include time devoted to teaching and to any procedure I billed separately. I have personally seen and examined this patient and participated in the oneal components of this encounter with the multi-disciplinary ICU team. I discussed the management of this case with the resident and reviewed/confirmed their documentation (attached). I personally reviewed today's actual images, the associated image reports, and current labs. I supervised the ordering of additional testing, imaging, labs, and/or consultations. The critical care treatment was mainly directed to address the following current issues: Active Hospital Problems Diagnosis Date Noted Trauma 07/23/2025 Subarachnoid hemorrhage following injury, no loss of consciousness (HCC) 07/23/2025 Intramuscular hematoma 07/23/2025 At risk for delirium 07/23/2025 Frailty syndrome in geriatric patient 07/23/2025 Prolonged QT interval 07/23/2025 Goals of care, counseling/discussion 07/23/2025 Full code status 07/23/2025 DNR (do not resuscitate) discussion 07/23/2025 SIGNATURE: Karis Peraza MD PATIENT NAME: Kim Cabrera DATE: July 23, 2025 TIME: 12:47 PM INPATIENT SICU PROGRESS NOTE SERVICE DATE: 07/23/2025 SERVICE TIME: 5:21 AM Subjective NAEON. Patient seen and examined this morning, AANDOx3. Denies any pain, changes in vision, nausea, vomiting. Saturating well on 2L NC. Current Facility-Administered Medications Medication Dose Route Frequency NaCl 0.9% iv flush bag 20 mL INTRAVENOUS PRN iv contrast (radiology procedure) INTRAVENOUS DIRECTED PRN iv contrast (radiology procedure) INTRAVENOUS DIRECTED PRN atorvastatin 40 mg tab(s) (LIPITOR) 40 mg ORAL DAILY metoprolol tartrate (short acting) 12.5 mg tab(s) (LOPRESSOR) 12.5 mg ORAL BID levothyroxine 125 mcg tab(s) (SYNTHROID) 125 mcg ORAL BEFORE BREAKFAST DAILY potassium chloride ER 20-40 mEq tab(s) (KLOR-CON) 20-40 mEq ORAL/FEEDING TUBE PRN Or potassium chloride iv piggyback 20 mEq/100 mL 20 mEq INTRAVENOUS PRN magnesium sulfate iv piggyback in sterile water 2 g 50 mL 2 g INTRAVENOUS PRN phosphorus 500 mg tab(s) (K PHOS NEUTRAL) 500 mg ORAL/FEEDING TUBE PRN(NO DISPENSE) calcium gluconate iv piggyback 2 g in NaCl (iso-osmotic) 100 mL 2 g INTRAVENOUS PRN(NO DISPENSE) sodium phosphate 30 mmol in D5W 250 mL 30 mmol INTRAVENOUS PRN(NO DISPENSE) Or sodium phosphate 45 mmol in D5W 250 mL 45 mmol INTRAVENOUS PRN(NO DISPENSE) NaCl 0.9% iv infusion 75 mL/hr INTRAVENOUS CONTINUOUS polyethylene glycol 3350 17 g packet 17 g ORAL DAILY senna-docusate 8.6-50 mg 1 tablet (SENNA-S) 1 tablet ORAL BID melatonin 3 mg tab(s) 3 mg ORAL/FEEDING TUBE DAILY (7 PM) acetaminophen 975 mg tab(s) (TYLENOL) 975 mg ORAL q 6 H oxyCODONE IR 2.5-5 mg tab(s) (ROXICODONE) 2.5-5 mg ORAL q 4 H PRN fentaNYL 50 mcg/mL 25 mcg injection (SUBLIMAZE) 25 mcg INTRAVENOUS q 2 H PRN prochlorperazine 5 mg tab(s) (COMPAZINE) 5 mg ORAL/FEEDING TUBE q 6 H PRN Or prochlorperazine 5 mg injection (COMPAZINE) 5 mg INTRAVENOUS q 6 H PRN Objective VITAL SIGNS BP 106/58 Pulse 70 Temp (Src) 97.9 (Oral) Resp 15 Ht 5' 8 (1.73m) Wt 184 lb 11.9 oz (83.8kg) SpO2 99% BMI 28.10 kg/(m2). O2 Therapy: Nasal Cannula, Liters (Numeric Only): 2 Temp (24hrs), Av.7 ?C (98 ?F), Min:36.6 ?C (97.9 ?F), Max:36.7 ?C (98 ?F) Date 07/22/25 07 - 07/23/25 0659 07/23/25 07 - 07/24/25 0659 Shift 3082-3482 5466-7223 3863-4782 24 Hour Total 2981-9489 5841-0091 (more content not included)... [facility] 07-22-2025 Discharge summary [facility] 07-22-2025 Radiology Diagnostic study note [facility] Imaging Services [address] [place], [place] [id number] Pelvis 1 or 2 Views MR#: [id number] Acct: [id number] Name: KIM CABRERA Rep #: [id number] : 1940 F 85 From: Soren Rebolledo MD PCP: [place] [facility] Status: REG ER Study:Pelvis 1 or 2 Views Date of Exam: 07/22/25 Exam# [id number] Ordering Dr: Alden Dumont MD PROCEDURE: PELVIS 1 OR 2 VIEWS 07/22/2025 REASON FOR EXAM: TRAUMA TECHNIQUE: Procedure Code: RADPEL Modality: DX Procedure: PELVIS 1 OR 2 VIEWS FINDINGS: Status post bilateral hip arthroplasties (partially visualized). No evidence ofacute complication. Degenerative changes of the partially visualized spine. RAD/Pelvis 1 or 2 Views IMPRESSION: Intact partially visualized bilateral hip arthroplasties. Reading Location: [id number] CC: DRILL HAND-Apurva Bosch; Dr. Cj Dumont MD ~ Assistant Professor Of Chemistry: Signed [facility] 07-22-2025 Radiology Diagnostic study note [facility] Imaging Services [address] [place], [place] [address] Chest 1 View (Portable) MR#: [id number] Acct: [id number] Name: KIM CABRERA Rep #: [id number] : 1940 F 85 From: Simona Lozano MD PCP: FIFI Lu Status: REG ER Study:Chest 1 View (Portable) Date of Exam: 07/22/25 Exam# [id number] Ordering Dr: Alden Dumont MD PROCEDURE: CHEST 1 VIEW (PORTABLE) 07/22/2025 REASON FOR EXAM: TRAUMA TECHNIQUE: Frontal view of the chest. COMPARISON: Chest x-ray 06/23/2024. FINDINGS: Hardware: Pacemaker overlying left chest wall with leads in appropriate position. Median sternotomy wires are visualized. Heart: Cardiomegaly. Lungs: Bibasilar atelectasis. Curvilinear density within right middle lung likely representing scarring. Bones: Degenerative changes of bilateral shoulder joints. Evaluation of ribs isseverely limited. Other: RAD/Chest 1 View (Portable) IMPRESSION: Bibasilar atelectasis. Curvilinear scarring within right middle lung. If there is persistent or worsening respiratory status follow-up chest x-ray is recommended. Reading Location: [id number].[email or web address] CC: DRILL HAND-C Teagan Bosch; Dr. Cj Dumont MD ~ Assistant Professor Of Chemistry: Signed [facility] 07-22-2025 Radiology Diagnostic study note [facility] Imaging Services [address] [place] [address] Shoulder min 2 Views MR#: [id number] Acct: [id number] Name: KIM CABRERA Rep #: [id number] : 1940 F 85 From: Jasmin Ledezma MD PCP: FIFI Lu Status: REG ER Study:Shoulder min 2 Views Date of Exam: 07/22/25 Exam# [id number] Ordering Dr: Alden Dumont MD EXAM: XR Left Shoulder Complete, 2 or More Views CLINICAL INDICATION: FALL TECHNIQUE: Two or more views of the left shoulder. COMPARISON: No relevant prior studies available. FINDINGS: BONES/JOINTS: Mild degenerative changes of the acromioclavicular and glenohumeral joints. No acute fracture. No dislocation. SOFT TISSUES: Unremarkable. RAD/Shoulder min 2 Views IMPRESSION: Degenerative changes as above. Reading Location: [id number] CC: DRILL HAND-Apurva Bosch; Dr. Cj Dumont MD ~ Assistant Professor Of Chemistry: Signed [facility] 07-22-2025 Radiology Diagnostic study note [facility] Imaging Services [address] [place] [address] Sinus/Facial Bone MR#: [id number] Acct: [id number] Name: KIM CABRERA Rep #: [id number] : 1940 F 85 From: Chela Buckley MD PCP: FIFI Lu Status: REG ER Study:Sinus/Facial Bone Date of Exam: Exam# [id number] Ordering Dr: Alden Dumont MD PROCEDURE: SINUS/FACIAL BONE 07/22/2025 REASON FOR EXAM: R-JAW PAIN POST FALL TECHNIQUE: Procedure Code: CTSI Modality: CT Procedure: SINUS/FACIAL BONE Coronal and Sagittal reconstruction series were provided. One or more dose reduction techniques were used (e.g., Automated exposure control, adjustment of the mA and/or kV according to patient size, use of iterative reconstruction technique). RADIATION DOSE SUMMARY: CTDlvol: 94 mGy DLP: 2002 mGycm FINDINGS: Soft tissue windows demonstrate symmetric appearance of the orbits. The imaged portions of the brain are unremarkable. Normal mandibular body, mandibular rami and mandibular condyles. Normal zygomatic arches. Normal nasal bones. Medial and lateral orbital pickard maintained. Mastoids and middle ear cavities intact. On coronal images, normal nasal bones and orbital floor. CT/Sinus/Facial Bone IMPRESSION: Negative for maxillofacial fracture. The sinuses are clear. Reading Location[facility] CC: FIFI Bosch; Dr. Cj Dumont MD ~ Assistant Professor Of Chemistry: Signed [facility] 07-22-2025 Radiology Diagnostic study note [facility] Imaging Services [address] [place], [place] [id number] Spine Cervical without Contras MR#: [id number] Acct: [id number] Name: KIM CABRERA Rep #: [id number] : 1940 F 85 From: Chela Buckley MD PCP: FIFI Lu Status: REG ER Study:Spine Cervical without Contras Date of Exam: 07/22/25 Exam# [id number] Ordering Dr: Alden Dumont MD PROCEDURE: SPINE CERVICAL WITHOUT CONTRAS 07/22/2025 REASON FOR EXAM: TRAUMA TECHNIQUE: Procedure Code: CTSPC Modality: CT Procedure: SPINE CERVICAL WITHOUT CONTRAS Coronal and Sagittal reconstruction series were provided. One or more dose reduction techniques were used (e.g., Automated exposure control, adjustment of the mA and/or kV according to patient size, use of iterative reconstruction technique. RADIATION DOSE SUMMARY: Not provided FINDINGS: Normal cervical vertebral body height without compression deformity. Facet arthrosis without facet fracture. Degenerative changes are present at C1-C2. Odontoid process, C1 vertebra and C2 vertebra appear intact. No visible soft tissue mass. Prominent vascular calcification. Axial images demonstrate no fractures of the facets, pedicles or lamina. Multilevel facet hypertrophy noted. CT/Spine Cervical without Contras IMPRESSION: Degenerative changes. No fracture. Reading Location: [facility] CC: DRILL HAND-C eTagan Bosch; Dr. Cj Dumont MD ~ Assistant Professor Of Chemistry: Signed [facility] 07-22-2025 Radiology Diagnostic study note [facility] Services [address], [place] [address] Brain/Head without Contrast MR#: [id number] Acct: [id number] Name: KIM CABRERA Rep #: [id number] : 1940 F 85 From: Chela Buckley MD PCP: FIFI Lu Status: REG ER Study:Brain/Head without Contrast Date of Exa m: 07/22/25 Exam# [id number] Ordering Dr: Alden Dumont MD PROCEDURE: BRAIN/HEAD WITHOUT CONTRAST 07/22/2025 REASON FOR EXAM: HEAD TRAUMA ON BLOOD TGHINNER TECHNIQUE: Procedure Code: CTBR Modality: CT Procedure: BRAIN/HEAD WITHOUT CONTRAST Coronal and Sagittal reconstruction series were provided. One or more dose reduction techniques were used (e.g., Automated exposure control, adjustment of the mA and/or kV according to patient size, use of iterative reconstruction technique. RADIATION DOSE SUMMARY: Not provided FINDINGS: The bony calvarium appears intact. The paranasal sinuses are clear. There is a mild degree of cerebral atrophy and there is left parietal soft tissue swelling. There is no intracranial edema. Small amount of posttraumatic subarachnoid blood in the anterior aspect of the sylvian fissure on the right. Small amount of probable post traumatic subarachnoid blood along the floor of the temporal occipital lobe posteriorly on coronal image 61 CT/Brain/Head without Contrast IMPRESSION: Posttraumatic subarachnoid hemorrhage. A reading will be called to the ER. Reading Location: [facility] CC: DRILL HAND-C Teagan Bosch; Dr. Cj Dumont MD ~ Assistant Professor Of Chemistry: Signed [facility] 07-22-2025 Discharge summary Note Date/Time July 22, 2025 8:01pm [facility] Medical Records Department [address] [place] [address] Emergency Department Summary 07/22/25 MR#: [id number] Acct: [id number] Name: KIM CABRERA Rep #:[id number] : 1940 85 From: Cj Dumont MD PCP: FIFI Lu Status:REG ER Location: ED HPI HPI - Fall History of Present Illness Chief Complaint: Fall Informant: patient and family Occured/Mechanism Occurred: Today Mechanism/Context: Yes trip Fall down steps #: Last 3 straps: No garage. He believes she is on the floor. Usually ambulates: Without assistance Pain/Injury Pain Location: head, neck and upper extremity Quality of Pain: Sharp Current Severity: Moderate Maximum Severity: Moderate Associated Symptoms Associated Symptoms: Negative for Parasthesias, Weakness, Loss of function, Inability to ambulate, Loss of consciousness or Amnesia Narrative Narrative: 85-year-old female lives at home history of pulmonary emboli prior hip fracture,CHF, cardiomegaly on the blood thinner Eliquis. Was going down her steps into her garage tripped and fell within the last 3 steps hitting her head on the floor. Denies any LOC see. Plan scalp laceration, right jaw pain, neck pain she is in a c-collar. Mild left shoulder pain. Denies any LOC. [place] fine prior to the fall. 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 Contact dermatitis due to poison [place]en[place] Mild aortic stenosis COVID-19 (~01/2022) SARS-CoV-2 positive Longstanding persistent atrial fibrillation Asthma-COPD overlap syndrome Hypothyroidism Nonrheumatic aortic (valve) stenosis Chronic diastolic (congestive) heart failure History of pulmonary embolism Non-ischemic cardiomyopathy Carotid bruit Bilateral renal artery stenosis Osteoarthritis COPD (chronic obstructive pulmonary disease) Essential (primary) hypertension 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 Complete heart block HLD (hyperlipidemia) Home Medications ?Medication ?Instructions ?Recorded ?Last Taken ?Type aspirin 81 mg tablet,delayed 81 mg PO QHS afib 4 06/20/19 History release albuterol sulfate 90 mcg/actuation 2 puff inhalation Q 6H PRN 09/01/20 Unknown Rx aerosol inhaler shortness of breath or wheez ing #8.5 grams atorvastatin 40 mg tablet 40 mg PO QHS cholesterol #90 tabs 09/15/24 Unknown Rx metoprolol tartrate 25 mg tablet 12.5 mg (1/2 x 25 mg) PO BID for 10/08/24 Unknown Rx blood pressure #90 TABLETS potassium chloride 20 mEq 20 meq PO DAILY #90 tabs 11/22 Unknown Rx tablet,extended release apixaban 5 mg tablet (Eliquis) 5 mg PO BID Faxing to [facility] 03/25/25 Unknown Rx [facility]180 tabs magnesium oxide 400 mg PO QDAY 04/27/25 Unkn own History oxybutynin chloride 5 mg 5 mg PO QDAY 04/27/25 Unknow n History tablet,extended release 24 hr furosemide 40 mg tablet (Lasix) 40 mg PO QAM #90 tabs 05/19/25 Unknown Rx levothyroxine 125 mcg tablet 125 mcg PO QDAY 05/28/25 Unknown History (Synthroid) spironolactone 25 mg tablet 25 mg PO QDAY Pt never rec eived RX 05/28/25 Unknown History sent on 04/20/25 sertraline 100 mg tablet 150 mg PO DAILY 06/19/25 Unk nown History fluticasone furoate 200 1 inh inhalation QDAY #3 ea 06/23/25 Unknown Rx mcg/actuation blister powder for inhalation (Arnuity Ellipta) nitrofurantoin 100 mg PO BID #10 caps 07/21 Unknown Rx monohydrate/macrocrystals 100 mg capsule (Macrobid) Allergy/AdvReac Type Severity Reaction Status Date / Time No Known Allergies Allergy Verified 07/22/25 17:10 Family History Father Myocardial infarction Mother Cancer breast Sister Dementia Sister Colon cancer Surgical History History of carpal tunnel surgery of left wrist History of right hip replacement H/O coronary artery bypass surgery (08/28/19) History of left heart catheterization (06/20/19) Hx of atrioventricular node ablation (08/02/12) History of stent insertion of renal artery (03/22/11) History of radiofrequency ablation procedure for cardiac arrhythmia (10/15/09) History of open heart surgery (10/15/09) History of arthroscopic knee surgery History of carpal tunnel release of both wrists History of appendectomy Presence of cardiac pacemaker (04/29/18) History of coronary artery stent placement (07/23/09) Social History Smoking Status: Former smoker Tobacco: How many years used: 20 how long ago did patient quit smokin, 1ppd second hand exposure: Yes alcohol intake: current alcohol intake frequency: holidays/special occasions only substance use type: does not use caffeine: Yes (occasional) Type: carbonated beverages and coffee ROS ROS ED ROS Narrative Denies recent illness. Constitutional Constitutional ED: Denies chills or fever(s) Eyes Eyes: Denies blurry vision ENT ENT ED: Denies ear pain Cardiovascular Cardiovascular: Denies chest pain or palpitations Respiratory/Chest Respiratory/Chest: Denies cough or dyspnea Gastrointestinal Gastrointestinal: Denies abdominal pain Genitourinary Genitourinary ED: Denies dysuria or hematuria Musculoskeletal Musculoskeletal: Denies arthralgias or back pain Integumentary Denies abscess or Abrasions Neurologic Neurologic: Reports headache(s) Psychiatric Psychiatric: Denies anxiety or depression Endocrine Endocrinology: Denies polydipsia Hematologic/Lymphatic Hematologic/Lymphatic: Reports easy bleeding, easy bruising and other Details: On the blood thinner Eliquis. Allergic/Immunologic Allergic/Immunologic ED: Denies mouth swelling, tongue swelling or urticaria EXAM Physical Exam Narrative Exam Narrative: 85-year-old female sitting upright in bed. C-collar in place. Head dressing soaked with blood. She is awake alert. Answering questions following commands. Vital signs are stable afebrile. Family member present. H EENT exam pupils round reactive light. No obvious facial trauma no swelling. Mild right jaw tenderness but can open close her mouth. She has a head dressing on soaked withblood in the posterior scalp. C-collar in place. Trachea midline. C-spine tenderness. Lungs clear to auscultation bilaterally. Heart regular rhythm rateabout 74-6 systolic ejection murmur. Chest wall ribs nontender no crepitus. Abdomen soft nontender normal bowel sounds without peritoneal signs. Pelvic girdle intact. Back nontender no bruising. Spine nontender. Moving all 4 extremities. Has a bruise on the top of her left AC joint. But she can lift both arms above her shoulder. No deformity. No sign of tenderness. 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 Lower extremities nontender no deformity. Dorsi plantarflexion intact. Neurologically she is awake alert. Answer questions following commands. GCS 15. Const Vital Signs: 07/22/25 17:11 07/22/25 17:19 07/22/25 18:10 Temperature 97.6 F L Temperature Source Oral Pulse Rate 71 70 Respiratory Rate 16 Respiratory Effort Normal Non-Labored Blood Pressure 119/105 H Blood Pressure Mean 109 Pulse Ox 96 95 Oxygen Delivery Method Room Air Room Air 07/22/25 19:00 Temperature Temperature Source Pulse Rate 70 Respiratory Rate 16 Respiratory Effort Blood Pressure 119/60 Blood Pressure Mean 79 Pulse Ox 97 Oxygen Delivery Method Room Air Positive well nourished and well developed; Negative for obese, cachectic, contractures or unkempt General Appearance ED: well developed; Negative for unkempt, cachectic, contractures or NAD Nutritional Appearance: Negative for cachectic or obese HEENT Reports normocephalic HEENT Narrative: Posterior scalp laceration with bloodsoaked dressing. trauma, hematoma and tenderness Eyes EOMs intact bilaterally Neck No full ROM, no lymphadenopathy and supple Neck Narrative: C-collar in place. General: tenderness Chest Wall palpation of chest normal Resp normal respiratory effort, no retractions and clear to auscultation bilaterally Cardio regular rate, regular rhythm, S1 normal heart sound and S2 normal heart sound; Negative for no murmurs Cardio Narrative: 4-6 systolic ejection murmur. GI non-tender, non-distended and no masses Auscultation: normoactive bowel sounds Palpation: soft; Negative for guarding or rebound tenderness present Back/Spine no CVA tenderness Back/Spine Narrative: C-collar in place. General Back: Negative for CVA tenderness Cervical Spine: cervical spine tenderness Lumbar Spine / Lower Back: Negative for lumbar spinal tenderness Neuro oriented x3, CN's II-XII intact bilaterally, moves all extremities, no focal motor deficits and no sensory deficits noted Tray Coma Scale: document GCS findings Spontaneous Obeys Commands Oriented 15 Sensorium / Orientation: alert, oriented to person, oriented to place and oriented to time Motor Exam: strength 5/5 throughout Psych mental status grossly normal and thought process normal Appearance: Negative for unkempt Skin Skin Narrative: Posterior scalp laceration bandaged at this time. Lesions: no lesions Rashes: no rashes Trauma: laceration MDM MDM MDM Narrative Medical decision making narrative: 85-year-old female on the blood thinner Eliquis tripped and fell down 3 steps has a scalp laceration, head injury, rule out intracranial bleed to get CAT scans of her head, facial bones and neck. Also left shoulder x-ray. I was notified the CT of her brain shows acute subarachnoid. I will speak to a local trauma center and set up patient for transfer. I will discuss with them if they want her anticoagulation reversed with Kcentra. Patient will be given Kcentra. [facility] Is excepted the transfer. Have gone over CAT scan results with the patient's sister. She was also given for morphine for pain. Zofran IV. Arpita Coleman Also requested a chest x-ray and pelvis x-ray. [facility] should be here in under an hour. Repeat exam prior to ambulance transfer around 7:55 PM patient is doing well. She is awake alert. They will be transferring her to the trauma center. History & Record Review Discussion w/independent historian: Patient Additional record(s) reviewed:: Prior inpatient record, Prior outpatient record,Prior ED visit and Prior labs Radiography Chest X-Ray - ED: 1 View, Read by ED Physician, Read by Radiologist, Normal, Lungs, Mediastinum, Bony Structures, No Acute Disease, Chronic Changes and Cardiomegaly Diagnostic Testing: Clinical Impression(s) from Imaging Studies Brain CT 07/22/25 18:07 IMPRESSION: Posttraumatic subarachnoid hemorrhage. A reading will be called to the ER. Reading Location: [facility] Cervical Spine CT 07/22/25 18:07 IMPRESSION: Degenerative changes. No fracture. Reading Location: [facility] Facial/Sinus 07/22/25 18:15 IMPRESSION: Negative for maxillofacial fracture. The sinuses are clear. Reading Location: [facility] Shoulder X-Ray 07/22/25 18:25 IMPRESSION: Degenerative changes as above. Reading Location: [id number] Chest X-Ray 07/22/25 19:08 IMPRESSION: Bibasilar atelectasis. Curvilinear scarring within right middle lung. If there is persistent or worsening respiratory status follow-up chest x-ray is recommended. Reading Location: [id number] Pelvis X-Ray 07/22/25 19:08 IMPRESSION: Intact partially visualized bilateral hip arthroplasties. Reading Location: [facility] CT brain posttraumatic subarachnoid. CT C-spine degenerative changes no fracture. CT facial no obvious fractures. Left shoulder x-ray, 2 views, turbid by myself and radiologist shows degenerative arthritis no fracture. No dislocation. I did discuss x-rays and CAT scan with the patient family. Chest x-ray, portable, single view shows cardiomegaly. Pacemaker defibrillator left. No acute process. Chronic changes. Prior sternotomy with wires. Pelvis x-ray, portable, single view, shows bilateral hip prosthesis. No acute fracture. Interpreted both by myself and the radiologist. Critical Care Time Critical Care Time: Yes Critical care time (excluding procedures): 30-74 minutes, Including time spent:,Discussing w/Patient &/or Family/Security Guard Dispatcher, Discussing w/Consultants, ArrangingAdmission or Transfer, Performing Direct Patient Care at Bedside and - (38 minutes) Discharge Plan Triage Chief Complaint: Fall ED Provider: Cj Dumont Dx/Rx/DC Orders Clinical Impression: Fall down steps, Acute intra-cranial hemorrhage, Laceration of scalp, Chronic anticoagulation, Chronic a-fib Prescriptions: No Action albuterol sulfate 90 mcg/actuation HFA aerosol inhaler 2 puff INHALATION Q6H PRN (Reason: shortness of breath or wheezing) Qty: 8.5 2RF sertraline 100 mg tablet 150 mg PO DAILY oxybutynin chloride 5 mg tablet extended release 24hr 5 mg PO QDAY magnesium oxide 400 mg magnesium capsule 400 mg PO QDAY levothyroxine [Synthroid] 125 mcg tablet 125 mcg PO QDAY spironolactone 25 mg tablet 25 mg PO QDAY aspirin 81 MG tablet 81 mg PO QHS atorvastatin 40 mg tablet 40 mg PO QHS Qty: 90 3RF Rx Instructions: 40 mg PO at bedtime metoprolol tartrate 25 mg tablet 12.5 mg PO BID Qty: 90 3RF potassium chloride 20 mEq tablet extended release 20 meq PO DAILY Qty: 90 3RF Eliquis 5 mg tablet 5 mg PO BID MDD Pt phone [phone] Qty: 180 3RF furosemide [Lasix] 40 mg tablet 40 mg PO QAM Qty: 90 3RF Arnuity Ellipta 200 mcg/actuation blister with device 1 inh inhalation QDAY Qty: 3 3RF Rx Instructions: administer at approximately the same time(s) each day nitrofurantoin monohyd/m-cryst [Macrobid] 100 mg capsule 100 mg PO BID Qty: 10 0RF Rx Instructions: must administer with a meal/food Primary Care Provider: Teagan Bosch Referrals: Teagan Bosch NP-C [Primary Care Provider, Family Practice] Print Language: Belgian Disposition Disposition: Acute Care Hospital What to do if you have Problems For any increased pain, shortness of breath, bleeding, nausea or vomiting, chestpain, or any unexpected problems, contact your Primary Care Provider. Call [facility] ([phone]) or report to the closest Emergency Room. Call 911 if necessary. 07/22/252000 <Electronically signed by Cj Dumont MD> Cosigner Signature (if applicable): CC: FIFI Bosch ~ Signed [facility] Work Phone: 1(394) 205-557309-22-2025 Radiology Diagnostic study note [facility] Services [address] [place] [id number] Chest PA and Lateral MR#: [id number] Acct: [id number] Name: KIM CABRERA Rep #: [id number] : 1940 F 85 From: Chantelle Cartwright MD PCP: FIFI Lu Status: [facility] Study:Chest PA and Lateral Date of Exam: 07/20/25 Exam# [id number] Ordering Dr: Victorino West MD PROCEDURE: CHEST PA AND LATERAL 07/20/2025 REASON FOR EXAM: FOR PPM GENERATOR CHANGE TECHNIQUE: Procedure Code: RADCXR Modality: DX Procedure: CHEST PA AND LATERAL COMPARISON: 06/23/2024 FINDINGS: Left chest pacer. Median sternotomy wires. Mild pulmonary vascular congestion and interstitial edema. No focal consolidation. No pleural effusion or pneumothorax. Large cardiomegaly. Calcified aortic arch. No acute fractures. Multilevel lower thoracic compression deformities. RAD/Chest PA and Lateral IMPRESSION: Mild pulmonary vascular congestion and interstitial edema. No focal consolidation. Large cardiomegaly. Multilevel lower thoracic compression deformities. Reading Location: [facility] CC: FIFI Bosch; Dr. Elijah West MD ~ Assistant Professor Of Chemistry: Signed [facility]09-22-2025 Procedure [facility] [address] [place], [place] [id number] Pacemaker Check Date of Service: 07/20/25 1704 MR#: [id number] Acct: [id number] Name: KIM CABRERA Rep #: [id number] : 1940 From: Deonna haas Age/Sex: 85/F [place] [facility] [place]: Signed with Addenda ADDENDUM by Deonna Hernandez on 07/20/25 at 1805 Billing Codes Nurse, Teaching, Wound Ck (no charge): Yes (INsturctions for PPM gen change) 07/20/25 1805 > Date _ Deonna Hernandez cc: ~* Signed Billing Codes PM Device Codes: 12874 PM Dev Prog Eval, Dual Assessment and Plan Assessment and Plan (1) Presence of cardiac pacemaker: Status: Chronic Comment: 2011, gen change 2017 (2) Longstanding persistent atrial fibrillation: Status: Chronic Comment: History of AV node ablation; (3) Complete heart block: Status: Chronic 07/20/25 1720 > Date _ Deonna Downeyigndiandra Signature: Date (if applicable) CC: ~ [facility]09-22-2025 Progress [facility] [address] [place] [address] OFFICE VISIT Date of Service: 07/20/25 MR#: [id number] Acct: [id number] Name: KIM CABRERA Rep #: [id number] : 1940 Provider: FIFI Topete Age/Sex: 85/F Location: [facility] Status: Signed HPI HPI History of Present Illness Surgical H&P: Yes Details: KIM CABRERA, is an 85 F who presents to the office today for a cardiovascular follow-up. She has a history of right coronary artery stenting and balloon angioplasty to ostial RCA and proximal RCA on 07/24/2009. She also underwent emergent sternotomy for left atrial laceration noted after pulmonary vein isolation procedure on 10/14/2009. She then underwent cardiac catheterization on 06/20/2019 that demonstrated distal left main 50% lesion disease in the left anterior descending artery 40 to 50% in-stent stenosis of the right coronary artery. She was sent to [facility] to evaluate for further therapy. It was determined after much discussion that she would benefit from a redo sternotomy. She underwent coronary artery bypass grafting with a left internal mammary artery to the left anterior descending artery, and radial T graft of the internal mammary artery to the first obtuse marginal branch on 08/28/2019. She also had ligation of the left atrial appendage. She did have an echocardiogram performed in August 2019 which demonstrated ejection fraction of 55 to 60%, dilated RV, mild aortic valve stenosis and severe tricuspid regurgitation. Her right ventricular systolic pressure was estimated to be 37 mmHg. She does have aprevious smoking history. She also has a permanent pacemaker implantation afterher AV junctional ablation was completed. She has a history of bilateral renal artery stenosis with stenting, chronic atrial fibrillation, hypertension, and hyperlipidemia. She states that while down in [place] over the winter, she fell and broke her left hip. While she was in the hospital, they did an echocardiogram, and PRIMO. She states that she was told her tricuspid and aortic valve were severe. Her echocardiogram on 06/22/2025 demonstrated an ejection fraction 55%, severely dilated right ventricle, moderate tricuspid valve insufficiency and mild to moderate aortic valve stenosis. From a cardiac standpoint, the patient is doing well. She does use a cane and wheel chair to help with ambulation. She denies any palpitations, chest pain, pressure or heaviness. She does acknowledgeSOB with exertion and at rest. She denies Orthopnea, and PND. She does wear 1L of oxygen at night. She does have bruising on bilateral arms. She does not have bleeding issues; no blood in urine, stool, or nosebleeds. She does acknowledge fatigue. She denies myalgias, or claudication. She does not have edema, or sudden weight gain. She does acknowledge occasional lightheadedness with quick positional changes. She deniesdizziness, syncopal or near syncopal episodes, and headaches. Intake Vital Signs 06/19/25 07:55 07/20/25 07:13 07/20/25 11:12 07/20/25 11:19 Height 5 ft 8 in 5 ft 8 in 5 ft 8 in 5 ft 8 in Weight: 181 lb BMI 27.5 BP 129/78 H Blood Pressure Location Lt brachial Position Sitting Respiration 20 H Pulse 69 Pulse Source Monitor Pulse Oximetry (%) 95 Intake Visit Reasons: 1 M FU/PRICILLA @ 11 Allergies No Known Allergies Allergy (Verified 07/20/25 11:27) Medications ?Medication ?Instructions ?Recorded ?Confirmed ?Type aspirin 81 mg tablet,delayed 81 mg PO QHS afib 4 07/20/25 History release albuterol sulfate 90 mcg/actuation 2 puff inhalation Q 6H PRN 09/01/20 07/20/25 Rx aerosol inhaler shortness of breath or wheez ing #8.5 grams atorvastatin 40 mg tablet 40 mg PO QHS cholesterol #90 tabs 09/15/24 07/20/25 Rx metoprolol tartrate 25 mg tablet 12.5 mg (1/2 x 25 mg) PO BID for 10/08/24 07/20/25 Rx blood pressure #90 TABLETS potassium chloride 20 mEq 20 meq PO DAILY #90 tabs 11/2207/20/25 Rx tablet,extended release apixaban 5 mg tablet (Eliquis) 5 mg PO BID Faxing to [facility] 03/25/25 07/20/25 Rx [facility] tabs magnesium oxide 400 mg PO QDAY 04/27/25 09/12/23 History oxybutynin chloride 5 mg 5 mg PO QDAY 04/27/25 History tablet,extended release 24 hr pantoprazole 40 mg tablet,delayed 40 mg PO QDAY #90 ta bs 04/27/25 07/20/25 Rx release furosemide 40 mg tablet (Lasix) 40 mg PO QAM #90 tabs 05/19/25 07/20/25 Rx levothyroxine 125 mcg tablet 125 mcg PO QDAY 05/28/25 07/20/25 History (Synthroid) spironolactone 25 mg tablet 25 mg PO QDAY Pt never rec eived RX 05/28/25 07/20/25 History sent on 04/20/25 sertraline 100 mg tablet 150 mg PO DAILY 06/19/25 History fluticasone furoate 200 1 inh inhalation QDAY #3 ea 06/23/25 07/20/25 Rx mcg/actuation blister powder for inhalation (Arnuity Ellipta) Ejection fraction %: 55 Have you fallen in the past year?: Yes PFSH Medical History Fracture of left hip requiring operative repair History of stent insertion of renal artery Atherosclerosis of both carotid arteries Diverticulosis Gout Degenerative disc disease, thoracic Rheumatoid arthritis Osteoarthritis Chronic venous insufficiency Venous stasis dermatitis 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 Contact dermatitis due to poison [place] Mild aortic stenosis COVID-19 (~01/2022) SARS-CoV-2 positive Longstanding persistent atrial fibrillation Asthma-COPD overlap syndrome Hypothyroidism Nonrheumatic aortic (valve) stenosis Chronic diastolic (congestive) heart failure History of pulmonary embolism Non-ischemic cardiomyopathy Carotid bruit Bilateral renal artery stenosis Osteoarthritis COPD (chronic obstructive pulmonary disease) Essential (primary) hypertension 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 Complete heart block HLD (hyperlipidemia) Surgical History History of carpal tunnel surgery of left wrist History of right hip replacement H/O coronary artery bypass surgery (08/28/19) History of left heart catheterization (06/20/19) Hx of atrioventricular node ablation (08/02/12) History of stent insertion of renal artery (03/22/11) History of radiofrequency ablation procedure for cardiac arrhythmia (10/15/09) History of open heart surgery (10/15/09) History of arthroscopic knee surgery History of carpal tunnel release of both wrists History of appendectomy Presence of cardiac pacemaker (04/29/18) History of coronary artery stent placement (07/23/09) Family History Father Myocardial infarction Mother Cancer breast Sister Dementia Sister Colon cancer Social History Smoking Status: Former smoker Tobacco: How many years used: 20 how long ago did patient quit smokin, 1ppd second hand exposure: Yes alcohol intake: current alcohol intake frequency: holidays/special occasions only substance use type: does not use caffeine: Yes (occasional) Type: carbonated beverages and coffee ROS Const Const: Positive for fatigue; Negative for weakness, headache(s) or frequent falls Eyes Eyes: Negative for blurry vision ENT ENT: Negative for headache(s), dizziness or Nosebleed/epistaxis Cardio Chest Pain: No Palpitations: No Edema: None Muscle aches with walking: None Resp Respiratory: Positive for SOB with activity and SOB at rest; Negative for SOB orthopnea\SOB lying down GI GI: Negative nausea, vomiting, heartburn, bright, red blood in stools or black,tarry stools : Negative for hematuria Neuro Neuro: Positive for lightheadedness (occasional with quick positional changes); Negative for dizziness, near syncope, syncope, frequent falls, headache(s), weakness or blurry vision Endo Endo: Positive for fatigue Cardiology Exam Const Appearance: cooperative, healthy appearing, comfortable, no acute distress and well developed Nutritional Appearance: overweight Orientation: alert, awake and oriented x3 Head Head: normal to inspection Ears: hearing grossly normal bilaterally Nose: external nose normal Face and Sinus: face symmetric Eyes General: appearance normal, both eyes and all related structures Eyelids: eyelids normal Conjunctivae: conjunctivae normal EOM: EOM intact bilaterally Neck Neck: normal visual inspection and trachea midline; Negative no JVD Carotids: Negative bruit Chest Chest inspection: normal inspection of the chest Auscultation: Bilateral: Clear to Auscultation Cardio Palpation: normal PMI Rate: regular rate Rhythm: regular rhythm Heart sounds: S1 normal, S2 normal and murmur; Negative rub or gallop Murmur: Grade 3/6, harsh, mid systolic and radiates to carotids GI GI: normal to inspection Neuro General: patient alert, patient awake, patient oriented x3 and CN's II-XI intactbilaterally Extremities Pulses: Normal: Right Posterior Tibial Pulse, Left Posterior Tibial Pulse, RightRadial Pulse and Left Radial Pulse Lower Extremity Edema: None: Bilateral Psych Psychological: normal affect Supplemental Info Supplemental Information Stress Test 07/28/2024: Conclusion: Normal pharmacologic myocardial perfusion stress test. Preserved ejection fraction. Echocardiogram 06/22/2025: Interpretation Summary Normal LV size. Moderate concentric left ventricular hypertrophy. The left ventricular ejection fraction is 55 %. Severely dilated right ventricle. D shaped septum in systole and diastole. Moderate (2+) tricuspid valve insufficiency. Mild to moderate aortic stenosis. Above findings further similar to the previous echocardiogram. Echocardiogram 04/16/2024: Interpretation Summary Normal LV size. Moderately dilated right ventricle. The left atrium is severely enlarged. The right atrium is severely enlarged. Left ventricular systolic function is lower limits of normal. The left ventricular ejection fraction is 50 %. Mean aortic valve gradient 22 mmHg. Mild aortic stenosis. Echocardiogram 05/22/2022: Interpretation Summary Normal LV size. Left ventricular systolic function is lower limits of normal. ICD or pacer leads identified within the right ventricle. The left atrium is moderately enlarged. The right atrium is severely enlarged. Stage 2 diastolic dysfunction. Mild (1+) aortic valve insufficiency. Stress test 03/17/2022: Conclusion: Normal pharmacologic myocardial perfusion stress test. Preserved ejection fraction. Heart catheterization from 06/20/2019: CONCLUSIONS At least 50% distal left main coronary artery stenosis, mild left anterior descending artery stenosis, mild circumflex artery stenosis, ostial 40% right coronary artery and preserved left ventricularejection fraction. RECOMMENDATIONS Surgery consult for coronary revascularization CORONARY ANGIOGRAPHY DOMINANCE: Left Dominant LEFT HEART ASSESSMENT Left Ventricular Ejection Fraction: by LV Gram 60 % Normal Left Ventricular systolic function LEFT MAIN: Mild calcification, 50 % distal % Stenosis LEFT ANTERIOR DESCENDING ARTERY: Mild luminal irregularities CIRCUMFLEX ARTERY: PROX CIRC: Mild luminal irregularities less than 30% RIGHT CORONARY ARTERY: Mild luminal irregularities less than 30% OSTIAL RCA: 40 % Stenosis Carotid duplex ultrasound from 07/17/2019: Interpretation Summary Significant irregular plague right distal common carotid Extensive calcific irregular plague at the proximal right internal carotid 50-69% stenosis right proximal internal carotid Increased velocity right carotid bulb suspicious for clinically significant disease >50% stenosis right external carotid Irregular calcific plague at the proximal left internal carotid Irregular plague at the proximal left external carotid 50-69% stenosis left internal carotid <50% stenosis left external carotid >50% stenosis right vertebral <50% stenosis left vertebral Ankle brachial index from 04/09/2020: Interpretation Summary Minimal arterial occlusive disease bilateral lower extremities at rest. Right lower extremity ankle-brachial indices at rest are both normal but the digital brachial index could not be obtained due to artificially elevated systolic pressure greater than 254 consistent with medial calcification of the vessel wall. Doppler waveforms of the right posterior tibial and dorsalis pedis are triphasic. Findings would suggest mild disease. Left lower extremity PT ankle-brachial index is normal with a slightly abnormal left DP index of 0.87. In and of itself that would be consistent with moderate severity of disease. Again the left posterior tibial and dorsalis pedis waveforms are triphasic at rest. The left digital brachial index is normal. Overall these findings would be consistent with mild disease. Labs: LDL Cholesterol, (0-130) 46 mg/dL HDL Cholesterol, (40-) 40 mg/dL Cholesterol, (200) 107 mg/dL Triglycerides, (-199) 105 mg/dL Diagnostics: Electrocardiogram Echocardiogram Stress Test Stress Test Nuclear Medicine Cardiac Catheterization Pacemaker Check Pacemaker Procedure Note Chest X-Ray Chest CTA Carotid Duplex Extremity Arterial Study Venous Doppler Study Pulmonary: Pulmonary Function Test Pulmonary Exercise Test Past Visits: Cardiology Visit Today Assessment and Plan Assessment and Plan (1) H/O coronary artery bypass surgery: Status: Chronic Comment: Redo sternotomy-CABG X 2: PHILLIPS to LAD, radial T graft off the LIAM to the principal obtuse marginal and ligation of left atrial appendage 08/28/19 Plan: Patient is status post CABG x 2 in 2019. Her most recent stress test from 07/28/2024 was negative for ischemia. This was reviewed with her. She appears stable at this time, and denies any recent symptoms or events. At this time, shewill continue with her current medical therapy, along with monitoring for any concerning symptoms. (2) Presence of cardiac pacemaker: Status: Chronic Comment: 2011, gen change 2017 Plan: Patient's most recent pacemaker interrogation from 07/13/2025 showed a presentingrhythm of AF/CIGARETTE INSPECTOR. Persistent atrial fibrillation, and no ventricular high rate episodes detected. Patient's battery lifeis 3 months. She will undergo generator change on 08/03/[address] West. (3) Longstanding persistent atrial fibrillation: Status: Chronic Comment: History of AV node ablation; Plan: Patient has a history of persistent atrial fibrillation/atrial flutter. Her echocardiogram from 06/22/2025 demonstrated an ejection fraction of 55%, and severely enlarged atriums. This was reviewed with patient. She appears to be in persistent atrial fibrillation noted on her pacemaker interrogation. She will continue Eliquis 5 mg twice daily, and metoprolol tartrate 12.5 mg twice daily. We will continue to monitor this through pacemaker interrogations. (4) Nonrheumatic aortic (valve) stenosis: Status: Chronic Plan: Patient has a history of nonrheumatic aortic valve stenosis. Her most recent echocardiogram from 06/22/2025 demonstrated mild-moderate aortic valve stenosis. This was reviewed with patient. We will continue to monitor this with history, exam, and echocardiograms as deemed appropriate. (5) Essential (primary) hypertension: Status: Chronic Plan: Patient has a history of hypertension. Her blood pressure is well-controlled inthe office today at 129/78. At this time, she will continue with her current medical therapy?Lasix 40 mg daily, metoprolol tartrate 12.5 mg twice daily, and spironolactone 25 mg daily. She will monitor her blood pressures at home, and notify our office of any persistently elevated or low blood pressure readings. (6) HLD (hyperlipidemia): Status: Chronic Qualifiers: Hyperlipidemia type: pure hypercholesterolemia Qualified Code(s): E78.00 - Pure hypercholesterolemia, unspecified Plan: Patient has a history of hyperlipidemia. Her PCP monitors this. Her most recent lipid panel from 08/15/2023: Cholesterol 107, HDL 40, LDL 46, triglycerides 105. She will continue atorvastatin 40 mg daily, along with aggressive risk factor lifestyle modifications. A copy of her most recent lipidpanel would be greatly appreciated for continuity of care. (7) MORALES (dyspnea on exertion): Status: Acute Plan: Patient acknowledges dyspnea on exertion. Her echocardiogram on 06/22/2025 demonstrated an ejection fraction of 55%, and mild-moderate aortic valve stenosis. Her stress test from 07/28/2024 was negative for ischemia. Will obtain lab work today to further assess this. Depending on results, further ursula mmendations will be made. Orders: Orders Pro- Brain NATRIURETIC PEPTIDE Today R06.02 - Shortness of breath Plan Details Additional Comments: Patient will follow up in 3-4 months, or sooner if needed. Thank you for allowing me to participate in the care of your patient. Please don't hesitate to callif any issues arise. This note was generated using a voice recognition system and there may be incorrect words, spelling, or punctuation that were not noted when reviewing theoffice note prior to saving. Portions of this documentation were copied and pasted from previous office visitnotes to provide a cohesive continuity of the history. The note has been reviewed, edited, and updated, as necessary. Follow Up: 3-4 Months (DRILL HAND/PA) Coding Level of Care Code Off vis,est,level 4 Diagnoses H/O coronary artery bypass surgery Z95.1 Presence of cardiac pacemaker Z95.0 Longstanding persistent atrial fibrillation I48.11 Nonrheumatic aortic (valve) stenosis I35.0 Essential (primary) hypertension I10 Pure hypercholesterolemia E78.00 Hyperlipidemia type: pure hypercholesterolemia MORALES (dyspnea on exertion) R06.09 Coding Level of Care Code Off vis,est,level 4 Diagnoses H/O coronary artery bypass surgery Z95.1 Presence of cardiac pacemaker Z95.0 Longstanding persistent atrial fibrillation I48.11 Nonrheumatic aortic (valve) stenosis I35.0 Essential (primary) hypertension I10 Pure hypercholesterolemia E78.00 Hyperlipidemia type: pure hypercholesterolemia MORALSE (dyspnea on exertion) R06.09 Clinical Quality Measures Falls Risk Screening/Assistive Devices Have you fallen in the past year?: Yes Cardiac Ejection fraction %: 55 07/20/25 1154 DRILL HAND DRILL HAND-C> Date _ Bailey Topete DRILL HAND DRILL HAND-C Cosigner Signature: Date (if applicable) CC: ~ [facility]07-31-2025 Evaluation note* Diagnosis Onset Date Resolution Status Admit Date Hypoxia acute May 28 2:47pm Asthma-COPD overlap syndrome chronic May 28, 2025 2:47pm Mild aortic stenosis chronic May 28, 2025 2:47pm MORALES (dyspnea on exertion) acute June 19, 2025 10:21am Essential (primary) hypertension chronic June 19 10:21am H/O coronary artery bypass surgery August 28, 2019 chronic June 19, 2025 10:21am HLD (hyperlipidemia) chronic Augu st 2024 10:21am Longstanding persistent atrial fibrillation chronic June 19, 2025 10:21am Nonrheumatic aortic (valve) stenosis chronic June 19 10:21am Presence of cardiac pacemaker April 29, 2018 chronic June 19 10:21am Complete heart block chronic Jun 10:58am Longstanding persistent atrial fibrillation chronic July 202024 10:58am Presence of cardiac pacemaker April 29, 2018July 20, 2025 10:58am MORALES (dyspnea on exertion) acute July 20, 2025 10:59am Essential (primary) hypertension chronic July 20, 2025 10:59am H/O coronary artery bypass surgery August 28, 2019June 10:59am HLD (hyperlipidemia) chronic Jun 10:59am Longstanding persistent atrial fibrillation chronic July 202024 10:59am Nonrheumatic aortic (valve) stenosis chronic July 20, 2025 10:59am Presence of cardiac pacemaker April 29, 2018July 20, 2025 10:59am Complete heart block chronic 2024 12:59pm Longstanding persistent atrial fibrillation chronic July 12:59pm Presence of cardiac pacemaker April 29, 2018August 10 12:59pm [facility] Work Phone: 1(115) 676-310507-16-2025 Radiology Diagnostic study note [facility] Imaging Services [address], [place] [id number] (431) L/S Spine Min 4 Views MR#: [id number] Acct: [id number] Name: KIM CABRERA Rep #: [id number] : 1940 F 85 From: Jasmin Ledezma MD PCP: Teagan Hiro, DRILL HAND-C Status: REG CLI Study:L/S Spine Min 4 Views Date of Exam: 05/12/25 Exam# [id number] Ordering Dr: Ra waleska Bosch DRILL HAND-C EXAM: XR Lumbosacral Spine, 4 or 5 Views CLINICAL INDICATION: RULE OUT FRACTURE TECHNIQUE: Frontal, lateral and bilateral oblique views of the lumbar spine. COMPARISON: No relevant prior studies available. FINDINGS: VERTEBRAE: Moderate compression deformity of L1 vertebral body status post vertebroplasty. Mild endplate degenerative changes of the visualized spine. Moderate disc degeneration of L1-2 L3. Moderate facetarthropathy of L3-S1.Normal alignment. No acute fracture. SACRUM/COCCYX: Unremarkable as visualized. No acute fracture. DISC SPACES: See above. SOFT TISSUES: Unremarkable. VASCULATURE: Scattered calcified atherosclerotic disease of aorta. RAD/L/S Spine Min 4 Views IMPRESSION: 1. No acute fracture. 2. Degenerative changes as above. 3. Postoperative changes as above. 4. If symptoms persist, further evaluation with MRI is recommended. Reading Location: [facility] CC: DRILL HAND-C Teagan Bosch ~ Assistant Professor Of Chemistry: Signed [facility]07-15-2025 Procedure notey [facility] Pulmonary Services/Neurology [address] [place] [address] MR#: [id number] Acct: [id number] Name: KIM CABRERA Rep #:[id number] : 1940 85 From: Quinton Alfonso DO Referring Dr: Zeina Bran NP DRILL HAND-C Status: REG CLI Location: PSN Date: Sex: F C PSN 6 Minute Walk Test 6 Minute Walk Test 6 Minute Walk Test: 6 Minute Walk Test PSN:6-Minute Walk Test Start: 05/08/25 10:07 Freq: Status: Active Protocol: RESP.6MINW Document 05/08/25 09:45 AEH (Rec: 05/08/25 10:17 AEH [id number]) 6 Minute Walk Test Date Performed 05/08/25 Time Performed 09:45 Height 5 ft 8 in Weight: 195 lb Weight in Pounds 195.[address]: Yonathan Assistive device Cane used: Pre-test Oxygen Delivery Room Air Method Pulse Ox (%) 95 Pulse Rate (60-100 70 beats/min) Dyspnea Jaspla Scale ( 0 0-10) Exertion Jasapl Scale 6 (6-20) 1st minute Oxygen Delivery Room Air Method Pulse Ox (%) 97 Pulse Rate (60-100 74 beats/min) 2nd minute Oxygen Delivery Room Air Method Pulse Ox (%) 97 Pulse Rate (60-100 78 beats/min) 3rd minute Oxygen Delivery Room Air Method Number of Rests 1 Taken 4th minute Oxygen Delivery Room Air Method Number of Rests 1 Taken 5th minute Oxygen Delivery Room Air Method Pulse Ox (%) 97 Pulse Rate (60-100 73 beats/min) 6th minute Oxygen Delivery Room Air Method Pulse Ox (%) 97 Pulse Rate (60-100 86 beats/min) Dyspnea Jaspal Scale ( 1 0-10) Exertion Jaspal Scale 13 (6-20) Post-test Oxygen Delivery Room Air Method Pulse Ox (%) 97 Pulse Rate (60-100 71 beats/min) Full Laps Walked 3 Partial Lap, Number 5 of Tiles Walked Total Distance 182 Walked (ft) 05/08/25 10:10 Cardiopulmonary Services by Eleonora Lopez Pt arrived to walk in wheelchair with cane. Pt started walk using cane with an [employer] AGENT pushing wheelchair behind and this MERCH[employer]CH[employer] AGENT walking alongside pt. At 2 minutes 50seconds into walk pt stumbled and statedshe felt like her hip was going to giveout. Pt was seated in wheelchair. Pt denied that the rest was needed for any S.O.B. Pt felt she was able to start walking again at 4 minutes 35 seconds into walk. Pt finished walk without incident. Initialized on 05/08/25 10:10 - END OF NOTE Interpretation Interpretation: The patient ambulated 182 feet over the course of 6 minutes beginning on room air with use of a cane. Pretesting oxygen saturation was noted to be 95% on room air. With ambulation, the rose oxygen saturation was 97%. Although therewas evidence of impaired walk distance, there was no significant exertional oxygen desaturation. Recommendations Recommendations: There is no indication for the use of supplemental oxygen at this time. 05/12/25 0934 O> Date _ Quinton Alfonso DO CC: ~ Date Dictated: 05/12/25932 Date Transcribed: 05/12/25932 Assistant Professor Of Chemistry: Dr. Quinton Alfonso, DO Signed [facility]06-30-2025 Evaluation note* Diagnosis Onset Date Resolution Status Admit Date Hypoxia acute April 27 12:47pm Asthma-COPD overlap syndrome chronic April 27, 2025 12:47pm Hypoxia acute May 28 2:47pm Asthma-COPD overlap syndrome chronic May 28, 2025 2:47pm Mild aortic stenosis chronic May 28, 2025 2:47pm MORALES (dyspnea on exertion) acute June 19, 2025 10:21am Essential (primary) hypertension chronic June 19 10:21am H/O coronary artery bypass surgery August 28, 2019 chronic June 19, 2025 10:21am HLD (hyperlipidemia) chronic 2024 10:21am Longstanding persistent atrial fibrillation chronic June 19, 2025 10:21am Nonrheumatic aortic (valve) stenosis chronic June 19 10:21am Presence of cardiac pacemaker April 29, 2018 chronic June 19 10:21am Complete heart block chronic Jun 10:58am Longstanding persistent atrial fibrillation chronic July 202024 10:58am Presence of cardiac pacemaker April 29, 2018 chronic July 20, 2025 10:58am MORALES (dyspnea on exertion) acute July 20, 2025 10:59am Essential (primary) hypertension chronic July 20, 2025 10:59am H/O coronary artery bypass surgery August 28, 2019 chronic June 10:59am HLD (hyperlipidemia) chronic Jun 10:59am Longstanding persistent atrial fibrillation chronic July 202024 10:59am Nonrheumatic aortic (valve) stenosis chronic July 20, 2025 10:59am Presence of cardiac pacemaker April 29, 2018 chronic July 20, 2025 10:59am [facility] Work Phone: [phone] Evaluation note* Diagnosis Onset Date Resolution Status Admit Date Hypoxia acute April 27 12:47pm Asthma-COPD overlap syndrome chronic April 27, 2025 12:47pm Hypoxia acute May 28 2:47pm Asthma-COPD overlap syndrome chronic May 28, 2025 2:47pm Mild aortic stenosis chronic May 28, 2025 2:47pm MORALES (dyspnea on exertion) acute June 19, 2025 10:21am Essential (primary) hypertension chronic June 19 10:21am H/O coronary artery bypass surgery August 28, 2019 chronic June 19, 2025 10:21am HLD (hyperlipidemia) chronic 2024 10:21am Longstanding persistent atrial fibrillation chronic June 19, 2025 10:21am Nonrheumatic aortic (valve) stenosis chronic June 19 10:21am Presence of cardiac pacemaker April 29, 2018 chronic June 19 10:21am Complete heart block chronic Jun 10:58am Longstanding persistent atrial fibrillation chronic July 202024 10:58am Presence of cardiac pacemaker April 29, 2018July 20, 2025 10:58am MORALES (dyspnea on exertion) acute July 20, 2025 10:59am Essential (primary) hypertension chronic July 20, 2025 10:59am H/O coronary artery bypass surgery August 28, 2019June 10:59am HLD (hyperlipidemia) chronic Jun 10:59am Longstanding persistent atrial fibrillation chronic July 202024 10:59am Nonrheumatic aortic (valve) stenosis chronic July 20, 2025 10:59am Presence of cardiac pacemaker April 29, 2018July 20, 2025 10:59am Complete heart block chronic 2024 12:59pm Longstanding persistent atrial fibrillation chronic July 12:59pm Presence of cardiac pacemaker April 29, 2018August 10 12:59pm [facility] Work Phone: 1(652) 614-571105-22-2025 Evaluation note* Diagnosis Onset Date Resolution Status Admit Date MORALES (dyspnea on exertion) acute March 19, 2025 8:25am Essential (primary) hypertension chronic March 19, 2025 8:25am HLD (hyperlipidemia) chronic March 19, 2025 8:25am Longstanding persistent atrial fibrillation chronic March 19 8:25am Nonrheumatic aortic (valve) stenosis chronic March 19, 2025 8:25am Presence of cardiac pacemaker April 29, 2018 chronic March 19, 2025 8:25am H/O coronary artery bypass surgery August 28, 2019 resolved March 19 8:25am [facility] Work Phone: 1(952) 979-666305-22-2025 Evaluation note* Diagnosis Onset Date Resolution Status Admit Date MORALES (dyspnea on exertion) acute March 19, 2025 8:25am Essential (primary) hypertension chronic March 19, 2025 8:25am HLD (hyperlipidemia) chronic March 19, 2025 8:25am Longstanding persistent atrial fibrillation chronic March 19 8:25am Nonrheumatic aortic (valve) stenosis chronic March 19, 2025 8:25am Presence of cardiac pacemaker April 29, 2018 chronic March 19, 2025 8:25am H/O coronary artery bypass surgery August 28, 2019 resolved March 19 8:25am Hypoxia acute April 27 12:47pm [facility] Work Phone: 1(845) 118-443505-22-2025 Evaluation note* Diagnosis Onset Date Resolution Status Admit Date MORALES (dyspnea on exertion) acute March 19, 2025 8:25am Essential (primary) hypertension chronic March 19, 2025 8:25am HLD (hyperlipidemia) chronic March 19, 2025 8:25am Longstanding persistent atrial fibrillation chronic March 19 8:25am Nonrheumatic aortic (valve) stenosis chronic March 19, 2025 8:25am Presence of cardiac pacemaker April 29, 2018 chronic March 19, 2025 8:25am H/O coronary artery bypass surgery August 28, 2019 resolved March 19 8:25am Hypoxia acute April 27 12:47pm Asthma-COPD overlap syndrome chronic April 27, 2025 12:47pm [facility] Work Phone: 1(116) 827-476705-22-2025 Evaluation note* Diagnosis Onset Date Resolution Status Admit Date MORALES (dyspnea on exertion) acute March 19, 2025 8:25am Essential (primary) hypertension chronic March 19, 2025 8:25am HLD (hyperlipidemia) chronic March 19, 2025 8:25am Longstanding persistent atrial fibrillation chronic March 19 8:25am Nonrheumatic aortic (valve) stenosis chronic March 19, 2025 8:25am Presence of cardiac pacemaker April 29, 2018 chronic March 19, 2025 8:25am H/O coronary artery bypass surgery August 28, 2019 resolved March 19 8:25am Hypoxia acute April 27 12:47pm Asthma-COPD overlap syndrome chronic April 27, 2025 12:47pm Hypoxia acute May 28 2:47pm Asthma-COPD overlap syndrome chronic May 28, 2025 2:47pm Mild aortic stenosis chronic May 28, 2025 2:47pm MORALES (dyspnea on exertion) acute June 19, 2025 10:21am Essential (primary) hypertension chronic June 19 10:21am HLD (hyperlipidemia) chronic 2024 10:21am Longstanding persistent atrial fibrillation chronic June 19, 2025 10:21am Nonrheumatic aortic (valve) stenosis chronic June 19 10:21am Presence of cardiac pacemaker April 29, 2018 chronic June 19 10:21am H/O coronary artery bypass surgery August 28, 2019 resolved June 19, 2025 10:21am [facility] Work Phone: 1([phone]) 236-690105-22-2025 Evaluation note* Diagnosis Onset Date Resolution Status Admit Date MORALES (dyspnea on exertion) acute March 19, 2025 8:25am Essential (primary) hypertension chronic March 19, 2025 8:25am H/O coronary artery bypass surgery August 28, 2019 chronic March 19 8:25am HLD (hyperlipidemia) chronic March 19, 2025 8:25am Longstanding persistent atrial fibrillation chronic March 19 8:25am Nonrheumatic aortic (valve) stenosis chronic March 19, 2025 8:25am Presence of cardiac pacemaker April 29, 2018 chronic March 19, 2025 8:25am Hypoxia acute April 27 12:47pm Asthma-COPD overlap syndrome chronic April 27, 2025 12:47pm Hypoxia acute May 28 2:47pm Asthma-COPD overlap syndrome chronic May 28, 2025 2:47pm Mild aortic stenosis chronic May 28, 2025 2:47pm MORALES (dyspnea on exertion) acute June 19, 2025 10:21am Essential (primary) hypertension chronic June 19 10:21am H/O coronary artery bypass surgery August 28, 2019 chronic June 19, 2025 10:21am HLD (hyperlipidemia) chronic Augu 2024 10:21am Longstanding persistent atrial fibrillation chronic June 19, 2025 10:21am Nonrheumatic aortic (valve) stenosis chronic June 19 10:21am Presence of cardiac pacemaker April 29, 2018 chronic June 19 10:21am [facility] Work Phone: 1(871) 304-559910-17-2023 History and physical note Author Ephraim Luke [facility] August 14, 2023 11:40am Note Date/Time August 14, 2023 1 1:40am [facility] [address] [place] [address] H&P Exam - Wound Care 08/14/23 1137 MR#: [id number] Acct: [id number] Name: KIM CABRERA Rep #:[id number] : 1940 83 From: Ephraim Beavers PCP: Dr. Todd Carbajal, DO Status:[facility] Location: History of Present Illness Date of Service: 08/14/23 Chief Complaint: Bilateral lower extremity venous stasis dermatitis with excoriations History of Wound: This is an 83-year-old female with a longstanding history of chronic venous disease. She presented with venous stasis dermatitis in the gaiter areas bilaterally. She has suffered from these manifestations for many years. She denies significant swelling in her lower extremities. She has been using Silvadene topically recently, though has used a variety of topical ointments. She is active and ambulatory. She ambulates without limitation. She denies symptoms to suggest intermittent claudication. She denies a history of thrombophlebitis. She sleeps on a flat mattress at night. A venous duplex examination was performed on May 04, 2022, revealing incompetence of the right great saphenous vein, right small saphenous vein, right accessory saphenous veinand an incompetent right adoption social worker vein. Incompetence was also noted in the left great saphenous vein, right small saphenous vein, and right accessory saphenous vein x2. A noninvasive lower extremity arterial study performed on May 04, 2022, revealed normal flow at ankle level bilaterally, and at digital level on the right, with mild arterial occlusive disease at digital level on theleft. 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 History of pulmonary embolism History of stent insertion of renal artery HLD (hyperlipidemia) Hypothyroidism Longstanding persistent atrial fibrillation Mild aortic stenosis Non-ischemic cardiomyopathy Nonrheumatic aortic (valve) stenosis Osteoarthritis Osteoarthritis Rheumatoid arthritis SARS-CoV-2 positive Venous stasis dermatitis Home Medications aspirin 81 mg tablet,delayed release 81 mg PO QHS afib 09/08/14 [History Last Taken 06/20/19] levothyroxine 100 mcg tablet 100 mcg PO QDAY thyroid 04/19/18 [History Last Taken Unknown] spacer #1 ea 11/24/19 [Rx Last Taken Unknown] albuterol sulfate 90 mcg/actuation aerosol inhaler 2 puff inhalation Q6H PRN shortness of breath or wheezing #8.5 grams 09/01/20 [Rx Last Taken Unknown] sertraline 50 mg tablet 50 mg PO DAILY #90 tabs 10/15/20 [Rx Last Taken Unknown] calcium carb-vit H2-anvcninxq-glns 333 mg-200 unit-133 mg-5 mg tablet 1 tab PO DAILY 10/11/21 [History Last Taken Unknown] metoprolol tartrate 25 mg tablet 12.5 mg (1/2 x 25 mg) PO BID #90 tabs 09/13/22 [Rx Last Taken Unknown] torsemide 20 mg tablet 20 mg PO DAILY #90 tabs 09/13/22 [Rx Last Taken Unknown] fluticasone propionate 250 mcg/actuation blister powder for inhalation (Flovent Diskus) 1 inh inhalation BID #3 device 09/14/22 [Rx Last Taken Unknown] apixaban 5 mg tablet (Eliquis) 5 mg PO BID #180 tabs 11/13/22 [Rx Last Taken Unknown] atorvastatin 40 mg tablet 40 mg PO QHS cholesterol #90 tabs 11/13/22 [Rx Last Taken Unknown] potassium chloride 20 mEq tablet,extended release 20 meq PO DAILY #90 tabs 03/09/23 [Rx Last Taken Unknown] Allergy/AdvReac Type Severity Reaction Status Date / Time No Known Allergies Allergy Verified 08/07/23 09:30 Family History Father Myocardial infarction Mother Cancer breast Sister Dementia Sister Colon cancer Surgical History H/O coronary artery bypass surgery (08/28/19) History of appendectomy History of arthroscopic knee surgery History of carpal tunnel release of both wrists History of carpal tunnel surgery of left wrist History of coronary artery stent placement (07/23/09) History of left heart catheterization (06/20/19) History of open heart surgery (10/15/09) History of radiofrequency ablation procedure for cardiac arrhythmia (10/15/09) History of right hip replacement History of stent insertion of renal artery (03/22/11) Hx of atrioventricular node ablation (08/02/12) Presence of cardiac pacemaker (04/29/18) Social History Smoking Status: Former smoker Tobacco: How many years used: 20 how long ago did patient quit smokin, 1ppd second hand exposure: Yes alcohol intake: current alcohol intake frequency: holidays/special occasions only substance use type: does not use caffeine: Yes (occasional) Type: carbonated beverages and coffee Vital Signs Vital Signs Vital Signs: 08/14/23 10:46 Temperature 98.1 F Temperature Source Temporal Pulse Rate 69 Respiratory Rate 18 Blood Pressure 121/62 H Blood Pressure Mean 81 Blood Pressure Source Monitor Blood Pressure Position Semi-Fowlers Blood Pressure Location Left Arm Weight Weight: 187 lb Body Mass Index (BMI) 28.4 Physical Exam Const alert, oriented x3, no apparent distress, average body habitus and well nourished Constitutional Narrative: The patient's BMI is 28.4. General Appearance: cooperative, comfortable, well kempt and well developed Orientation / Consciousness: awake, oriented to person, oriented to place and oriented to time HEENT normocephalic, head/scalp atraumatic and hearing grossly normal bilaterally Head and Scalp: normal to inspection, normocephalic and atraumatic External Ear: external ears normal Eyes PERRL and EOMs intact bilaterally General Eye: normal appearance of both eyes Resp normal respiratory effort, normal air movement, no retractions and no use of accessory muscles Effort and Inspection: able to speak in complete sentences Extremity no calf tenderness General Extremity: Negative for clubbing or cyanosis Skin Wound Narrative: Lower extremities are warm and well-perfused. Pedal pulses are brisk bilaterally. Scattered excoriations and mild venous stasis dermatitis are notedin the gaiter areas bilaterally. No significant swelling or edema are noted. There is no sign of infection or cellulitis. There has been significant improvement within the last week, with nearly complete resolution of the dermatitis in the left gaiter area. Neuro oriented x3, CN's II-XII intact bilaterally, moves all extremities and no focal motor deficits Sensorium / Orientation: awake, alert, oriented to person, oriented to place andoriented to time Psych Appearance: grossly normal and appropriate Attitude: calm Activity / Motor Behavior: appropriate eye contact Speech: normal speech Mood & Affect: euthymic mood Thought Process: normal thought process Thought Content: normal thought content Attention / Concentration: attention grossly intact Debridement Note Debridement Note No debridement was completed: No debridement was completed today (There are no open wounds or ulcerations.) Post-Debridement Measurements and Additional Note: Post-Debridement Measurements/Treatment WC - Nurse 1 - General Ulcer Assessment Start: 08/07/23 09:08 Freq: Status: Active Protocol: MAYO Activity Type Activity Date Activity User E-sign Co-sign Detail Recorded Client Recorded Date Recorded By Document 08/07/23 09:[address] [facility] Desktop 08/07/23 09:[address] [facility] Document 08/10/23 12:09 Desktop 10/13/23 12:20 KW Document 08/14/23 10:46 RB Desktop 08/14/23 10:48 RB 08/07/23 08/10/23 08/14/23 09:10 12:09 10:46 WC - Today's Visit Information Type of service Initial Visit Nurse-only Follow-up Visit Visit (Physician/[employer] ) Arrival Mode Ambulatory Ambulatory Ambulatory Transfer Assistance None None Patient Identification Verified (Name & Yes Yes Yes ) Patient Requires Transmission-Based No No Precautions Height and Weight Height 5 ft 8 in Weight 187 lb Weight in Pounds 187.0 lbs Weight Measurement Method Stated by Patient Body Mass Index (BMI) 28.4 28.4 28.4 BMI Classification Overweight Overweight Overweight BSA - Jose Daniel 1.99 Vital Signs Temperature (97.8 F-99.1 F) 97.2 F L 97.0 F L 98.1 F Temperature Source Temporal Temporal Temporal Pulse Rate (60-100) 69 69 69 Pulse Location Monitor Monitor Monitor Respiratory Rate (12-18) 18 18 18 Respiratory rate source Observation Observation Observation Oxygen Delivery Method Room Air Room Air Blood Pressure (90/60-120/80) 146/65 H 140/66 H 121/62 H Blood Pressure Mean 92 90 81 Source Monitor Monitor Monitor Position Sitting Sitting Semi-Fowlers Blood Pressure Location Left Arm Left Arm Left Arm History Since Last Visit- (Skip if this is Patient's initial visit) Have you changed medications since your No No last visit? Any new allergies or adverse reactions No No Had a fall/change in ADL's that may No No increase risk of falls Signs or symptoms of abuse and/or No No neglect since last visit Have you been in the hospital since your No No last visit? Has dressing in place as prescribed Yes Yes Has compression in place as prescribed Yes Yes Has offloadiing in place as prescribed No No Experienced any changes in pain level or No No management Left Footwear Regular Shoe Regular Shoe Right Footwear Regular Shoe Regular Shoe Pain Scale: 0-10 Numeric Is Patient Pain Free? Yes Yes Yes Lower Extremity Assessment/ Foot Assessment/ Toe Nail Assessment Right -Posterior Tibial Palpable No -Posterior Tibial Doppler Monophasic -Dorsalis Pedis Palpable No -Dorsalis Pedis Doppler Monophasic -Extremity Color Hyperpigmented -Hair Growth on Legs No -Hair Growth on Toes No -Temperature of Extremity Cool -Other Deformity No -Prior Foot Ulcer No -Charcot Joint No -Prior Amputation No -Thick Yes -Discolored Yes -Deformed No -Improper Length & Hygeine No Left -Posterior Tibial Palpable No -Posterior Tibial Doppler Multiphasic -Dorsalis Pedis Doppler Multiphasic -Extremity Color Hyperpigmented -Hair Growth on Legs No -Hair Growth on Toes No -Temperature of Extremity Cool -Other Deformity No -Prior Foot Ulcer No -Charcot Joint No -Prior Amputation No -Thick Yes -Discolored Yes -Deformed No -Improper Length & Hygeine No Neuropathy Assessment Feet - Top Side and Bottom <Entered> (a) Communication Assessment Preferred language Belgian 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 No Able to Read Yes Able to Write Yes Communication Tools None Right Hearing Abillity Hard of Hearing Left Hearing Abillity Hard of Hearing Visual Assistive Devices Glasses Teaching Assessment Preferences Verbal,Written, Audio/Visual, Demonstration Barriers to Learning None Readiness To Learn Excellent Willingness to Engage in Self Management High Activies Readiness to Engage in Self Management High Activities Anxiety Level Calm Cooperation Cooperative Perception Coherent Interest in Health Problem Asks Questions Education Importance Acknowledges Need Does Patient Smoke tobacco or other No substances Smoking Status Former smoker Is Patient Diabetic No Functional Assessment Recent Decline in Ability to Perform Denies Any Declines Culture/Latter-Day/Giving Officer Cultural/Latter-Day Needs that may affect No Treatment Plan Teaching: Wound Center *Welcome to the Wound Center -Person Taught Patient -Teaching Method Discussion -Response to teaching Verbalize understanding Welcome to the Wound Care Center Belgian (a) 1 - + WC - Nurse 1 - General Ulcer Measurement Start: 08/07/23 09:08 Freq: Status: Active Protocol: Activity Type Activity Date Activity User E-sign Co-sign Detail Recorded Client Recorded Date Recorded By Document 08/07/23 09:[address] [facility] Desktop 08/07/23 09:27 [facility] Document 08/10/23 12:09 KW Desktop 08/10/23 12:20 KW Document 08/14/23 10:46 RB Desktop 08/14/23 10:48 RB 08/07/23 08/10/23 08/14/23 09:10 12:09 10:46 Wound Center Nurse 1 #1- R MED LE CLUSTER -Combined with other wound No No -Current Size (cm) - Length 0.1 8.5 0.1 -Current Size (cm) - Width 0.1 2.0 0.1 -Current Size (cm) - Depth 0.1 0.1 0.1 -Total Square Cm 0.01 17.00 0.01 -Date of Last Picture (Recall this 08/07/23 field) -Photo Taken Yes -Epithelialization None Present -Tunneling No No -Undermining/Tunneling No No -Circular Undermining No No -Exudate Amt None Present Small Medium -Exudate Type Serosanguineous Serosanguineous -Wound Margin Flat & Intact Distinct, Distinct, Outline Outline Attached Attached -Granulation Amt Medium (34-66%) -Granulation Quality [place] -Slough/Fibrin Yes -Necrosis Amt Small (1-33%) Small (1-33%) -Necrotic Tissue Type Eschar Adherent Slough -Structure Exposed N/A -Texture (Gloria-wound Skin Appearance) Assessed, Assessed Assessed Scarring,Rash -Moisture (Gloria-wound Skin Appearance) Assessed,Dry/ Assessed Scaly -Color (Gloria-wound Skin Appearance) Assessed Assessed, Assessed Erythema -Temperature (Gloria-wound Skin No Abnormality No Abnormality No Abnormality Appearance) (Pt Warm) (Pt Warm) (Pt Warm) -Tenderness on Palpation (Gloria-wound No No Skin Appearance) -Ulcer Cleansing Rinsed/ Soap and Water Wound Cleanser Irrigated with Saline -Foul Odor after Cleansing No No -Anesthetic Used 4% Lidocaine 5% Lidocaine Solution Gel -Wound Comment(s) scabbed Lower Limb Edema Present Yes Right Calf (cm) 36.5 36.8 Right Ankle (cm) 20.6 20.5 Left Calf (cm) 35.3 36 Left Ankle (cm) 20.2 21 WC - Nurse 3 - General Ulcer D/C NN Start: 08/07/23 09:08 Freq: Status: Active Protocol: Activity Type Activity Date Activity User E-sign Co-sign Detail Recorded Client Recorded Date Recorded By Document 08/07/23 10:15 [facility] Desktop 08/07/23 10:16 [facility] Document 08/10/23 12:20 KW Desktop 08/10/23 12:20 KW Document 08/14/23 11:22 MT Desktop 08/14/23 11:24 MT 08/07/23 08/10/23 08/14/23 10:15 12:20 11:22 Wound Care Center Nurse 3 #1- R MED LE CLUSTER -Other Dressing UNNA BOOT BLE -Multi-Layered Wrap Application Unna Boot - Unna Boot - Unna Boot - Bilateral ($) Bilateral ($) Bilateral ($) Pain Scale: 0-10 Numeric Is Patient Pain Free? Yes Yes Yes WC - Visit Discharge Discharge Condition Stable Stable Stable Ambulatory Status Ambulatory Ambulatory Ambulatory Transportation Private Auto Private Auto Private Auto Medication Reconcilliation completed & No No provided to patient/care provider Clinical Summary of Care Provided Yes Yes Notes: pt knows to keep her legs dry. Assessment/Plan Assessment/Plan (1) Venous stasis dermatitis: CODE(S): I87.2 - Venous insufficiency (chronic) (peripheral) QUALIFIERS: Laterality: bilateral Qualified Code(s): I87.2 - Venous insufficiency (chronic) (peripheral) (2) Chronic venous insufficiency: CODE(S): I87.2 - Venous insufficiency (chronic) (peripheral) (3) Mild aortic stenosis: CODE(S): I35.0 - Nonrheumatic aortic (valve) stenosis (4) Peripheral vascular disease, unspecified: CODE(S): I73.9 - Peripheral vascular disease, unspecified (5) Neuropathy of right foot: CODE(S): G57.91 - Unspecified mononeuropathy of right lower limb (6) 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: CODE(S): I25.10 - Atherosclerotic heart disease of bois forte coronary artery without angina pectoris QUALIFIERS: Coronary Disease-Associated Artery/Lesion type: nativeartery Qualified Code(s): I25.10 - Atherosclerotic heart disease of bois forte coronary artery without angina pectoris (7) H/O coronary artery bypass surgery: CODE(S): Z95.1 - Presence of aortocoronary bypass graft (8) History of coronary artery stent placement: CODE(S): Z95.5 - Presence of coronary angioplasty implant and graft (9) History of open heart surgery: CODE(S): Z98.890 - Other specified postprocedural states (10) Presence of cardiac pacemaker: CODE(S): Z95.0 - Presence of cardiac pacemaker (11) Longstanding persistent atrial fibrillation: CODE(S): I48.11 - Longstanding persistent atrial fibrillation (12) Nonrheumatic aortic (valve) stenosis: CODE(S): I35.0 - Nonrheumatic aortic (valve) stenosis (13) Chronic diastolic (congestive) heart failure: CODE(S): I50.32 - Chronic diastolic (congestive) heart failure (14) Essential (primary) hypertension: CODE(S): I10 - Essential (primary) hypertension (15) HLD (hyperlipidemia): CODE(S): E78.5 - Hyperlipidemia, unspecified QUALIFIERS: Hyperlipidemia type: pure hypercholesterolemia Qualified Code(s): E78.00 - Pure hypercholesterolemia, unspecified (16) care home (current) use of anticoagulants: CODE(S): Z79.01 - care home (current) use of anticoagulants (17) COPD (chronic obstructive pulmonary disease): CODE(S): J44.9 - Chronic obstructive pulmonary disease, unspecified QUALIFIERS: COPD type: unspecified COPD Qualified Code(s): J44.9 - Chronic obstructive pulmonary disease, unspecified (18) Asthma-COPD overlap syndrome: CODE(S): J44.9 - Chronic obstructive pulmonary disease, unspecified (19) Osteoarthritis: CODE(S): M19.90 - Unspecified osteoarthritis, unspecified site (20) Rheumatoid arthritis: CODE(S): M06.9 - Rheumatoid arthritis, unspecified (21) Degenerative disc disease, thoracic: CODE(S): M51.34 - Other intervertebral disc degeneration, thoracic region (22) Gout: CODE(S): M10.9 - Gout, unspecified (23) Diverticulosis: CODE(S): K57.90 - Diverticulosis of intestine, part unspecified, without perforation or abscess without bleeding (24) Atherosclerosis of both carotid arteries: CODE(S): I65.23 - Occlusion and stenosis of bilateral carotid arteries (25) History of right hip replacement: CODE(S): Z96.641 - Presence of right artificial hip joint (26) History of carpal tunnel surgery of left wrist: CODE(S): Z98.890 - Other specified postprocedural states (27) History of stent insertion of renal artery: CODE(S): Z98.890 - Other specified postprocedural states PLAN: Plan This is an 83-year-old female who presented with manifestations suggestive of chronic venous insufficiency and venous stasis dermatitis. Multiple scattered excoriations are noted in the lower extremities bilaterally, though no boris open wounds or ulcerations. Venous duplex examination approximately 1 year ago has documented the presence of superficial venous insufficiency in the lower extremities bilaterally. No significant swelling or edema are noted. We are toimplement conservative treatment measures relative to the patient's venous disease. The patient is to continue sleeping on a flat mattress at night. Leg elevation has been encouraged, even during daytime hours. Her legs are to be elevated to heart level, or higher, is much as possible. Activity has been encouraged. Prolonged idle sitting has been discouraged. The patient's weight is optimal. We are to continue compression to the lower extremities by means ofUnna boots which will be applied bilaterally, and changed twice weekly. The patient is to return in 1 week for reevaluation. Total time: 24 minutes 08/14/23 1140 <Electronically signed by Ephraim Luke MD> Cosigner Signature (if applicable): CC: ~ Signed [facility] Work Phone: [phone] [phone] History and physical note Author Ephraim Luke [facility] August 07, 2023 10:24am Note Date/Time August 07, 2023 1 0:24am [facility] [address] [place] [id number] H&P Exam - Wound Care 08/07/23 1011 MR#: [id number] Acct: [id number] Name: KIM CABRERA Rep #:[id number] From: Ephraim Beavers PCP: Dr. Todd Carbajal, DO Status:REG R Location: History of Present Illness Date of Service: 08/07/23 Chief Complaint: Bilateral lower extremity venous stasis dermatitis with excoriations History of Wound: This is an 83-year-old female with a longstanding history of chronic venous disease. She presented with venous stasis dermatitis in the gaiter areas bilaterally. She has suffered from these manifestations for many years. She denies significant swelling in her lower extremities. She has been using Silvadene topically recently, though has used a variety of topical ointments. She is active and ambulatory. She ambulates without limitation. She denies symptoms to suggest intermittent claudication. She denies a history of thrombophlebitis. She sleeps on a flat mattress at night. A venous duplex examination was performed on May 04, 2022, revealing incompetence of the right great saphenous vein, right small saphenous vein, right accessory saphenous veinand an incompetent right adoption social worker vein. Incompetence was also noted in the left great saphenous vein, right small saphenous vein, and right accessory saphenous vein x2. A noninvasive lower extremity arterial study performed on May 04, 2022, revealed normal flow at ankle level bilaterally, and at digital level on the right, with mild arterial occlusive disease at digital level on theleft. 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 History of pulmonary embolism History of stent insertion of renal artery HLD (hyperlipidemia) Hypothyroidism Longstanding persistent atrial fibrillation Mild aortic stenosis Non-ischemic cardiomyopathy Nonrheumatic aortic (valve) stenosis Osteoarthritis Osteoarthritis Rheumatoid arthritis SARS-CoV-2 positive Venous stasis dermatitis Home Medications aspirin 81 mg tablet,delayed release 81 mg PO QHS afib 09/08/14 [History Last Taken 06/20/19] levothyroxine 100 mcg tablet 100 mcg PO QDAY thyroid 04/19/18 [History Last Taken Unknown] spacer #1 ea 11/24/19 [Rx Last Taken Unknown] albuterol sulfate 90 mcg/actuation aerosol inhaler 2 puff inhalation Q6H PRN shortness of breath or wheezing #8.5 grams 09/01/20 [Rx Last Taken Unknown] sertraline 50 mg tablet 50 mg PO DAILY #90 tabs 10/15/20 [Rx Last Taken Unknown] calcium carb-vit [id number] 333 mg-200 unit-133 mg-5 mg tablet 1 tab PO DAILY 10/11/21 [History Last Taken Unknown] metoprolol tartrate 25 mg tablet 12.5 mg (1/2 x 25 mg) PO BID #90 tabs 09/13/22 [Rx Last Taken Unknown] torsemide 20 mg tablet 20 mg PO DAILY #90 tabs 09/13/22 [Rx Last Taken Unknown] fluticasone propionate 250 mcg/actuation blister powder for inhalation (Flovent Diskus) 1 inh inhalation BID #3 device 09/14/22 [Rx Last Taken Unknown] apixaban 5 mg tablet (Eliquis) 5 mg PO BID #180 tabs 11/13/22 [Rx Last Taken Unknown] atorvastatin 40 mg tablet 40 mg PO QHS cholesterol #90 tabs 11/13/22 [Rx Last Taken Unknown] potassium chloride 20 mEq tablet,extended release 20 meq PO DAILY #90 tabs 03/09/23 [Rx Last Taken Unknown] Allergy/AdvReac Type Severity Reaction Status Date / Time No Known Allergies Allergy Verified 08/07/23 09:30 Family History Father Myocardial infarction Mother Cancer breast Sister Dementia Sister Colon cancer Surgical History H/O coronary artery bypass surgery (08/28/19) History of appendectomy History of arthroscopic knee surgery History of carpal tunnel release of both wrists History of carpal tunnel surgery of left wrist History of coronary artery stent placement (07/23/09) History of left heart catheterization (06/20/19) History of open heart surgery (10/15/09) History of radiofrequency ablation procedure for cardiac arrhythmia (10/15/09) History of right hip replacement History of stent insertion of renal artery (03/22/11) Hx of atrioventricular node ablation (08/02/12) Presence of cardiac pacemaker (04/29/18) Social History Smoking Status: Former smoker Tobacco: How many years used: 20 how long ago did patient quit smokin, 1ppd second hand exposure: Yes alcohol intake: current alcohol intake frequency: holidays/special occasions only substance use type: does not use caffeine: Yes (occasional) Type: carbonated beverages and coffee Vital Signs Vital Signs Vital Signs: 08/07/23 09:10 Temperature 97.2 F L Temperature Source Temporal Pulse Rate 69 Respiratory Rate 18 Blood Pressure 146/65 H Blood Pressure Mean 92 Blood Pressure Source Monitor Blood Pressure Position Sitting Blood Pressure Location Left Arm Oxygen Delivery Method Room Air Weight Weight: 187 lb Body Mass Index (BMI) 28.4 Physical Exam Const alert, oriented x3, no apparent distress, average body habitus and well nourished Constitutional Narrative: The patient's BMI is 28.4. General Appearance: cooperative, comfortable, well kempt and well developed Orientation / Consciousness: awake, oriented to person, oriented to place and oriented to time HEENT normocephalic, head/scalp atraumatic and hearing grossly normal bilaterally Head and Scalp: normal to inspection, normocephalic and atraumatic External Ear: external ears normal Eyes PERRL and EOMs intact bilaterally General Eye: normal appearance of both eyes Resp normal respiratory effort, normal air movement, no retractions and no use of accessory muscles Effort and Inspection: able to speak in complete sentences Extremity no calf tenderness General Extremity: Negative for clubbing or cyanosis Skin Wound Narrative: Lower extremities are warm and well-perfused. Pedal pulses are brisk bilaterally. Scattered excoriations and mild dermatitis are noted in the gaiterareas bilaterally. No significant swelling or edema are noted. There is no sign of infection or cellulitis. Neuro oriented x3, CN's II-XII intact bilaterally, moves all extremities and no focal motor deficits Sensorium / Orientation: awake, alert, oriented to person, oriented to place andoriented to time Psych Appearance: grossly normal and appropriate Attitude: calm Activity / Motor Behavior: appropriate eye contact Speech: normal speech Mood & Affect: euthymic mood Thought Process: normal thought process Thought Content: normal thought content Attention / Concentration: attention grossly intact Debridement Note Debridement Note No debridement was completed: No debridement was completed today (There are no open wounds or ulcerations.) Post-Debridement Measurements and Additional Note: Post-Debridement Measurements/Treatment [facility] Nurse 1 - General Ulcer Assessment Start: 08/07/23 09:08 Freq: Status: Active Protocol: [email or web address].[email or web address] Activity Type Activity Date Activity User E-sign Co-sign Detail Recorded Client Recorded Date Recorded By Document 08/07/23 09:[address] [facility] Desktop 08/07/23 09:[address] [facility] 08/07/23 09:10 - Today's Visit Information Type of service Initial Visit Arrival Mode Ambulatory Transfer Assistance None Patient Identification Verified (Name & Yes ) Patient Requires Transmission-Based No Precautions Height and Weight Height 5 ft 8 in Weight 187 lb Weight in Pounds 187.0 lbs Weight Measurement Method Stated by Patient Body Mass Index (BMI) 28.4 BMI Classification Overweight BSA - Jose Daniel 1.99 Vital Signs Temperature (97.8 F-99.1 F) 97.2 F L Temperature Source Temporal Pulse Rate (60-100) 69 Pulse Location Monitor Respiratory Rate (12-18) 18 Respiratory rate source Observation Oxygen Delivery Method Room Air Blood Pressure (90/60-120/80) 146/65 H Blood Pressure Mean 92 Source Monitor Position Sitting Blood Pressure Location Left Arm History Since Last Visit- (Skip if this is Patient's initial visit) Left Footwear Regular Shoe Right Footwear Regular Shoe Pain Scale: 0-10 Numeric Is Patient Pain Free? Yes Lower Extremity Assessment/ Foot Assessment/ Toe Nail Assessment Right -Posterior Tibial Palpable No -Posterior Tibial Doppler Monophasic -Dorsalis Pedis Palpable No -Dorsalis Pedis Doppler Monophasic -Extremity Color Hyperpigmented -Hair Growth on Legs No -Hair Growth on Toes No -Temperature of Extremity Cool -Other Deformity No -Prior Foot Ulcer No -Charcot Joint No -Prior Amputation No -Thick Yes -Discolored Yes -Deformed No -Improper Length & Hygeine No Left -Posterior Tibial Palpable No -Posterior Tibial Doppler Multiphasic -Dorsalis Pedis Doppler Multiphasic -Extremity Color Hyperpigmented -Hair Growth on Legs No -Hair Growth on Toes No -Temperature of Extremity Cool -Other Deformity No -Prior Foot Ulcer No -Charcot Joint No -Prior Amputation No -Thick Yes -Discolored Yes -Deformed No -Improper Length & Hygeine No Neuropathy Assessment Feet - Top Side and Bottom <Entered> (a) Communication Assessment Preferred language Belgian 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 No Able to Read Yes Able to Write Yes Communication Tools None Right Hearing Abillity Hard of Hearing Left Hearing Abillity Hard of Hearing Visual Assistive Devices Glasses Teaching Assessment Preferences Verbal,Written, Audio/Visual, Demonstration Barriers to Learning None Readiness To Learn Excellent Willingness to Engage in Self Management High Activies Readiness to Engage in Self Management High Activities Anxiety Level Calm Cooperation Cooperative Perception Coherent Interest in Health Problem Asks Questions Education Importance Acknowledges Need Does Patient Smoke tobacco or other No substances Smoking Status Former smoker Is Patient Diabetic No Functional Assessment Recent Decline in Ability to Perform Denies Any Declines Culture/Latter-Day/Giving Officer Cultural/Latter-Day Needs that may affect No Treatment Plan Teaching: Wound Center *Welcome to the Wound Center -Person Taught Patient -Teaching Method Discussion -Response to teaching Verbalize understanding Welcome to the Wound Care Center Belgian (a) 1 - + WC - Nurse 1 - General Ulcer Measurement Start: 08/07/23 09:08 Freq: Status: Active Protocol: Activity Type Activity Date Activity User E-sign Co-sign Detail Recorded Client Recorded Date Recorded By Document 08/07/23 09:10 [facility] Desktop 08/07/23 09:[address] [facility] 08/07/23 09:10 Wound Center Nurse 1 #1- R MED LE CLUSTER -Combined with other wound No -Current Size (cm) - Length 0.1 -Current Size (cm) - Width 0.1 -Current Size (cm) - Depth 0.1 -Total Square Cm 0.01 -Date of Last Picture (Recall this 08/07/23 field) -Photo Taken Yes -Epithelialization None Present -Tunneling No -Undermining/Tunneling No -Circular Undermining No -Exudate Amt None Present -Wound Margin Flat & Intact -Necrosis Amt Small (1-33%) -Necrotic Tissue Type Eschar -Texture (Gloria-wound Skin Appearance) Assessed, Scarring,Rash -Moisture (Gloria-wound Skin Appearance) Assessed,Dry/ Scaly -Color (Gloria-wound Skin Appearance) Assessed -Temperature (Gloria-wound Skin No Abnormality Appearance) (Pt Warm) -Tenderness on Palpation (Gloria-wound No Skin Appearance) -Ulcer Cleansing Rinsed/ Irrigated with Saline -Foul Odor after Cleansing No -Anesthetic Used 4% Lidocaine Solution Right Calf (cm) 36.5 Right Ankle (cm) 20.6 Left Calf (cm) 35.3 Left Ankle (cm) 20.2 Assessment/Plan Assessment/Plan (1) Venous stasis dermatitis: CODE(S): I87.2 - Venous insufficiency (chronic) (peripheral) QUALIFIERS: Laterality: bilateral Qualified Code(s): I87.2 - Venous insufficiency (chronic) (peripheral) (2) Chronic venous insufficiency: CODE(S): I87.2 - Venous insufficiency (chronic) (peripheral) (3) Mild aortic stenosis: CODE(S): I35.0 - Nonrheumatic aortic (valve) stenosis (4) Peripheral vascular disease, unspecified: CODE(S): I73.9 - Peripheral vascular disease, unspecified (5) Neuropathy of right foot: CODE(S): G57.91 - Unspecified mononeuropathy of right lower limb (6) 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: CODE(S): I25.10 - Atherosclerotic heart disease of bois forte coronary artery without angina pectoris QUALIFIERS: Coronary Disease-Associated Artery/Lesion type: nativeartery Qualified Code(s): I25.10 - Atherosclerotic heart disease of bois forte coronary artery without angina pectoris (7) H/O coronary artery bypass surgery: CODE(S): Z95.1 - Presence of aortocoronary bypass graft (8) History of coronary artery stent placement: CODE(S): Z95.5 - Presence of coronary angioplasty implant and graft (9) History of open heart surgery: CODE(S): Z98.890 - Other specified postprocedural states (10) Presence of cardiac pacemaker: CODE(S): Z95.0 - Presence of cardiac pacemaker (11) Longstanding persistent atrial fibrillation: CODE(S): I48.11 - Longstanding persistent atrial fibrillation (12) Nonrheumatic aortic (valve) stenosis: CODE(S): I35.0 - Nonrheumatic aortic (valve) stenosis (13) Chronic diastolic (congestive) heart failure: CODE(S): I50.32 - Chronic diastolic (congestive) heart failure (14) Essential (primary) hypertension: CODE(S): I10 - Essential (primary) hypertension (15) HLD (hyperlipidemia): CODE(S): E78.5 - Hyperlipidemia, unspecified QUALIFIERS: Hyperlipidemia type: pure hypercholesterolemia Qualified Code(s): E78.00 - Pure hypercholesterolemia, unspecified (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: CODE(S): Z79.01 - 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 (17) COPD (chronic obstructive pulmonary disease): CODE(S): J44.9 - Chronic obstructive pulmonary disease, unspecified QUALIFIERS: COPD type: unspecified COPD Qualified Code(s): J44.9 - Chronic obstructive pulmonary disease, unspecified (18) Asthma-COPD overlap syndrome: CODE(S): J44.9 - Chronic obstructive pulmonary disease, unspecified (19) Osteoarthritis: CODE(S): M19.90 - Unspecified osteoarthritis, unspecified site (20) Rheumatoid arthritis: CODE(S): M06.9 - Rheumatoid arthritis, unspecified (21) Degenerative disc disease, thoracic: CODE(S): M51.34 - Other intervertebral disc degeneration, thoracic region (22) Gout: CODE(S): M10.9 - Gout, unspecified (23) Diverticulosis: CODE(S): K57.90 - Diverticulosis of intestine, part unspecified, without perforation or abscess without bleeding (24) Atherosclerosis of both carotid arteries: CODE(S): I65.23 - Occlusion and stenosis of bilateral carotid arteries (25) History of right hip replacement: CODE(S): Z96.641 - Presence of right artificial hip joint (26) History of carpal tunnel surgery of left wrist: CODE(S): Z98.890 - Other specified postprocedural states (27) History of stent insertion of renal artery: CODE(S): Z98.890 - Other specified postprocedural states PLAN: Plan This is an 83-year-old female who presented with manifestations suggestive of chronic venous insufficiency and venous stasis dermatitis. Multiple scattered excoriations are noted in the lower extremities bilaterally, though no boris open wounds or ulcerations. Venous duplex examination approximately 1 year ago has documented the presence of superficial venous insufficiency in the lower extremities bilaterally. No significant swelling or edema are noted. We are toimplement conservative treatment measures relative to the patient's venous disease. The patient is to continue sleeping on a flat mattress at night. Leg elevation has been encouraged, even during daytime hours. Her legs are to be elevated to heart level, or higher, is much as possible. Activity has been encouraged. Prolonged idle sitting has been discouraged. The patient's weight is optimal. We are to implement compression to the lower extremities by means of Unna boots which will be applied bilaterally, and changed twice weekly. The patient is to return in 1 week for reevaluation. Total time: 48 minutes 08/07/23 1024 <Electronically signed by Ephraim Luke MD> Cosigner Signature (if applicable): CC: ~ Signed [facility] Work Phone: [phone] 164-749607-02-2018 Evaluation note* Diagnosis Onset Date Resolution Status Chronic diastolic (congestive) heart failure chronic Complete heart block chronic Longstanding persistent atrial fibrillation chronic Presence of cardiac pacemaker April 29, 2018 chronic Contact dermatitis due to poison glenys acute Asthma-COPD overlap syndrome chronic Asthma-COPD overlap syndrome chronic Longstanding persistent atrial fibrillation chronic Presence of cardiac pacemaker April 29, 2018 chronic Mild aortic stenosis acute Chronic diastolic (congestive) heart failure chronic Essential (primary) hypertension chronic HLD (hyperlipidemia) chronic Longstanding persistent atrial fibrillation chronic Presence of cardiac pacemaker April 29, 2018 chronic H/O coronary artery bypass surgery August 28, 2019 resolved [facility] Work Phone: [phone]) 176-706607-02-2018 Evaluation note* Diagnosis Onset Date Resolution Status Chronic diastolic (congestive) heart failure chronic Complete heart block chronic Longstanding persistent atrial fibrillation chronic Presence of cardiac pacemaker April 29, 2018 chronic Essential (primary) hypertension chronic HLD (hyperlipidemia) chronic Longstanding persistent atrial fibrillation chronic Nonrheumatic aortic (valve) stenosis chronic Presence of cardiac pacemaker April 29, 2018 chronic H/O coronary artery bypass surgery August 28, 2019 resolved Asthma-COPD overlap syndrome chronic Chronic diastolic (congestive) heart failure chronic Complete heart block chronic Longstanding persistent atrial fibrillation chronic Presence of cardiac pacemaker April 29, 2018 chronic [facility] Work Phone: [phone]) 464-472211-06-2017 Fall risk [id number] NoFall [facility] Work Phone: [phone]) [phone] Fall risk [id number]/14FALLRSKASSES NoFall risk assessmentW [facility] Work Phone: 1([phone]) 491-383409-05-2017 Fall risk [id number]/05FALLCHI [facility] NoFall risk assessmentW[facility] Work Phone: [phone] Fall risk [id number] [facility] NoFall risk assessmentW[facility] Work Phone: Evaluation note* Diagnosis Onset Date Resolution Status Right medial knee pain acute SARS-CoV-2 positive acute COVID-19 acute Chronic diastolic (congestive) heart failure chronic Essential (primary) hypertension chronic HLD (hyperlipidemia) chronic Longstanding persistent atrial fibrillation chronic Nonrheumatic aortic (valve) stenosis chronic Presence of cardiac pacemaker April 29, 2018 chronic H/O coronary artery bypass surgery August 28, 2019 resolved Chronic diastolic (congestive) heart failure chronic Complete heart block chronic Longstanding persistent atrial fibrillation chronic Presence of cardiac pacemaker April 29, 2018 chronic [facility] Work Phone: Evaluation note* Diagnosis Onset Date Resolution Status Right medial knee pain acute SARS-CoV-2 positive acute COVID-19 acute Chronic diastolic (congestive) heart failure chronic Essential (primary) hypertension chronic HLD (hyperlipidemia) chronic Longstanding persistent atrial fibrillation chronic Nonrheumatic aortic (valve) stenosis chronic Presence of cardiac pacemaker April 29, 2018 chronic H/O coronary artery bypass surgery August 28, 2019 resolved Chronic diastolic (congestive) heart failure chronic Complete heart block chronic Longstanding persistent atrial fibrillation chronic Presence of cardiac pacemaker April 29, 2018 chronic Lower leg abrasion acute Neuropathy of right foot acu te Peripheral vascular disease, unspecified acute Venous insufficiency (chronic) (peripheral) chronic [facility] Work Phone: Evaluation note* Diagnosis Onset Date Resolution Status Right medial knee pain acute SARS-CoV-2 positive resolved COVID-19 2021 resolved Chronic diastolic (congestive) heart failure chronic Essential (primary) hypertension chronic HLD (hyperlipidemia) chronic Longstanding persistent atrial fibrillation chronic Nonrheumatic aortic (valve) stenosis chronic Presence of cardiac pacemaker April 29, 2018 chronic H/O coronary artery bypass surgery August 28, 2019 resolved Chronic diastolic (congestive) heart failure chronic Complete heart block chronic Longstanding persistent atrial fibrillation chronic Presence of cardiac pacemaker April 29, 2018 chronic Lower leg abrasion acute Neuropathy of right foot chr onic Peripheral vascular disease, unspecified chronic Venous insufficiency (chronic) (peripheral) chronic Mild aortic stenosis acute Chronic diastolic (congestive) heart failure chronic Essential (primary) hypertension chronic HLD (hyperlipidemia) chronic Longstanding persistent atrial fibrillation chronic Presence of cardiac pacemaker April 29, 2018 chronic H/O coronary artery bypass surgery August 28, 2019 resolved [facility] Work Phone: Evaluation note* Diagnosis Onset Date Resolution Status COVID-19 2021 resolved Chronic diastolic (congestive) heart failure chronic Essential (primary) hypertension chronic HLD (hyperlipidemia) chronic Longstanding persistent atrial fibrillation chronic Nonrheumatic aortic (valve) stenosis chronic Presence of cardiac pacemaker April 29, 2018 chronic H/O coronary artery bypass surgery August 28, 2019 resolved Chronic diastolic (congestive) heart failure chronic Complete heart block chronic Longstanding persistent atrial fibrillation chronic Presence of cardiac pacemaker April 29, 2018 chronic Lower leg abrasion acute Neuropathy of right foot chr onic Peripheral vascular disease, unspecified chronic Venous insufficiency (chronic) (peripheral) chronic Mild aortic stenosis acute Chronic diastolic (congestive) heart failure chronic Essential (primary) hypertension chronic HLD (hyperlipidemia) chronic Longstanding persistent atrial fibrillation chronic Presence of cardiac pacemaker April 29, 2018 chronic H/O coronary artery bypass surgery August 28, 2019 resolved [facility] Work Phone: Evaluation note* Diagnosis Onset Date Resolution Status Mild aortic stenosis acute Chronic diastolic (congestive) heart failure chronic Essential (primary) hypertension chronic HLD (hyperlipidemia) chronic Longstanding persistent atrial fibrillation chronic Presence of cardiac pacemaker April 29, 2018 chronic H/O coronary artery bypass surgery August 28, 2019 resolved Chronic diastolic (congestive) heart failure chronic Complete heart block chronic Longstanding persistent atrial fibrillation chronic Presence of cardiac pacemaker April 29, 2018 chronic Contact dermatitis due to poison [place] acute Asthma-COPD overlap syndrome chronic [facility] Work Phone: Evaluation note* Diagnosis Onset Date Resolution Status Asthma-COPD overlap syndrome chronic MORALES (dyspnea on exertion) ac ej Fatigue acute Essential (primary) hypertension chronic HLD (hyperlipidemia) chronic Longstanding persistent atrial fibrillation chronic Nonrheumatic aortic (valve) stenosis chronic Presence of cardiac pacemaker April 29, 2018 chronic H/O coronary artery bypass surgery August 28, 2019 resolved Atherosclerosis of both carotid arteries acute Degenerative disc disease, thoracic acute Diverticulosis acute Gout acute History of carpal tunnel riccardo josé miguel of left wrist acute History of right hip replacement acute History of stent insertion of renal artery acute Mild aortic stenosis acute Osteoarthritis acute Rheumatoid arthritis acute Venous stasis dermatitis acu te Asthma-COPD overlap syndrome chronic 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 chronic Chronic diastolic (congestive) heart failure chronic Chronic venous insufficiency chronic COPD (chronic obstructive pulmonary disease) chronic Essential (primary) hypertension chronic HLD (hyperlipidemia) chronic care home (current) use of anticoagulants chronic Longstanding persistent atrial fibrillation chronic Neuropathy of right foot chr onic Nonrheumatic aortic (valve) stenosis chronic Peripheral vascular disease, unspecified chronic Presence of cardiac pacemaker April 29, 2018 chronic H/O coronary artery bypass surgery August 28, 2019 resolved History of coronary artery stent placement June 302008 resolved History of open heart surgery October 15, 2009 resolved [facility] Work Phone: Progress note Author Bailey Topete [facility] Note Date/Time July 20, 2025 11:45am [facility] [address] [place], [place] [address] OFFICE VISIT Date of Service: 07/20/25 MR#: [id number] Acct: [id number] Name: KIM CABRERA Rep #: [id number] : 1940 Provider: FIFI Topete Age/Sex: 85/F Location: [facility] Status: Signed HPI HPI History of Present Illness Surgical H&P: Yes Details: KIM CABRERA, is an 85 F who presents to the office today for a cardiovascular follow-up. She has a history of right coronary artery stenting and balloon angioplasty to ostial RCA and proximal RCA on 07/24/2009. She also underwent emergent sternotomy for left atrial laceration noted after pulmonary vein isolation procedure on 10/14/2009. She then underwent cardiac catheterization on 06/20/2019 that demonstrated distal left main 50% lesion disease in the left anterior descending artery 40 to 50% in-stent stenosis of the right coronary artery. She was sent to [facility] to evaluate for further therapy. It was determined after much discussion that she would benefit from a redo sternotomy. She underwent coronary artery bypass grafting with a left internal mammary artery to the left anterior descending artery, and radial T graft of the internal mammary artery to the first obtuse marginal branch on 08/28/2019. She also had ligation of the left atrial appendage. She did have an echocardiogram performed in August 2019 which demonstrated ejection fraction of 55 to 60%, dilated RV, mild aortic valve stenosis and severe tricuspid regurgitation. Her right ventricular systolic pressure was estimated to be 37 mmHg. She does have aprevious smoking history. She also has a permanent pacemaker implantation afterher AV junctional ablation was completed. She has a history of bilateral renal artery stenosis with stenting, chronic atrial fibrillation, hypertension, and hyperlipidemia. She states that while down in [place] over the winter, she fell and broke her left hip. While she was in the hospital, they did an echocardiogram, and PRIMO. She states that she was told her tricuspid and aortic valve were severe. Her echocardiogram on 06/22/2025 demonstrated an ejection fraction 55%, severely dilated right ventricle, moderate tricuspid valve insufficiency and mild to moderate aortic valve stenosis. From a cardiac standpoint, the patient is doing well. She does use a cane and wheel chair to help with ambulation. She denies any palpitations, chest pain, pressure or heaviness. She does acknowledge SOB with exertion and at rest. She denies Orthopnea, and PND. She does wear 1L of oxygen at night. She does have bruising on bilateral arms. She does not have bleeding issues; no blood in urine, stool, or nosebleeds. She does acknowledge fatigue. She denies myalgias, or claudication. She does not have edema, or sudden weight gain. She does acknowledge occasional lightheadedness with quick positional changes. She deniesdizziness, syncopal or near syncopal episodes, and headaches. Intake Vital Signs 06/19/25 07:55 07/20/25 07:13 07/20/25 11:12 07/20/25 11:19 Height 5 ft 8 in 5 ft 8 in 5 ft 8 in 5 ft 8 in Weight: 181 lb BMI 27.5 BP 129/78 H Blood Pressure Location Lt brachial Position Sitting Respiration 20 H Pulse 69 Pulse Source Monitor Pulse Oximetry (%) 95 Intake Visit Reasons: 1 M FU/PRICILLA @ 11 Allergies No Known Allergies Allergy (Verified 07/20/25 11:27) Medications ?Medication ?Instructions ?Recorded ?Confirmed ?Type aspirin 81 mg tablet,delayed 81 mg PO QHS afib 4 07/20/25 History release albuterol sulfate 90 mcg/actuation 2 puff inhalation Q 6H PRN 09/01/20 07/20/25 Rx aerosol inhaler shortness of breath or wheez ing #8.5 grams atorvastatin 40 mg tablet 40 mg PO QHS cholesterol #90 tabs 09/15/24 07/20/25 Rx metoprolol tartrate 25 mg tablet 12.5 mg (1/2 x 25 mg) PO BID for 10/08/24 07/20/25 Rx blood pressure #90 TABLETS potassium chloride 20 mEq 20 meq PO DAILY #90 tabs 11/2207/20/25 Rx tablet,extended release apixaban 5 mg tablet (Eliquis) 5 mg PO BID Faxing to [facility] 03/25/25 07/20/25 Rx [facility] tabs magnesium oxide 400 mg PO QDAY 04/27/2506/30 History oxybutynin chloride 5 mg 5 mg PO QDAY 04/27/25 History tablet,extended release 24 hr pantoprazole 40 mg tablet,delayed 40 mg PO QDAY #90 ta bs 04/27/25 07/20/25 Rx release furosemide 40 mg tablet (Lasix) 40 mg PO QAM #90 tabs 05/19/25 07/20/25 Rx levothyroxine 125 mcg tablet 125 mcg PO QDAY 05/28/25 07/20/25 History (Synthroid) spironolactone 25 mg tablet 25 mg PO QDAY Pt never rec eived RX 05/28/25 07/20/25 History sent on 04/20/25 sertraline 100 mg tablet 150 mg PO DAILY 06/19/25 History fluticasone furoate 200 1 inh inhalation QDAY #3 ea 06/23/25 07/20/25 Rx mcg/actuation blister powder for inhalation (Arnuity Ellipta) Ejection fraction %: 55 Have you fallen in the past year?: Yes PFSH Medical History Fracture of left hip requiring operative repair History of stent insertion of renal artery Atherosclerosis of both carotid arteries Diverticulosis Gout Degenerative disc disease, thoracic Rheumatoid arthritis Osteoarthritis Chronic venous insufficiency Venous stasis dermatitis 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 Contact dermatitis due to poison [place] Mild aortic stenosis COVID-19 (~01/2022) SARS-CoV-2 positive Longstanding persistent atrial fibrillation Asthma-COPD overlap syndrome Hypothyroidism Nonrheumatic aortic (valve) stenosis Chronic diastolic (congestive) heart failure History of pulmonary embolism Non-ischemic cardiomyopathy Carotid bruit Bilateral renal artery stenosis Osteoarthritis COPD (chronic obstructive pulmonary disease) Essential (primary) hypertension 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 Complete heart block HLD (hyperlipidemia) Surgical History History of carpal tunnel surgery of left wrist History of right hip replacement H/O coronary artery bypass surgery (08/28/19) History of left heart catheterization (06/20/19) Hx of atrioventricular node ablation (08/02/12) History of stent insertion of renal artery (03/22/11) History of radiofrequency ablation procedure for cardiac arrhythmia (10/15/09) History of open heart surgery (10/15/09) History of arthroscopic knee surgery History of carpal tunnel release of both wrists History of appendectomy Presence of cardiac pacemaker (04/29/18) History of coronary artery stent placement (07/23/09) Family History Father Myocardial infarction Mother Cancer breast Sister Dementia Sister Colon cancer Social History Smoking Status: Former smoker Tobacco: How many years used: 20 how long ago did patient quit smokin, 1ppd second hand exposure: Yes alcohol intake: current alcohol intake frequency: holidays/special occasions only substance use type: does not use caffeine: Yes (occasional) Type: carbonated beverages and coffee ROS Const Const: Positive for fatigue; Negative for weakness, headache(s) or frequent falls Eyes Eyes: Negative for blurry vision ENT ENT: Negative for headache(s), dizziness or Nosebleed/epistaxis Cardio Chest Pain: No Palpitations: No Edema: None Muscle aches with walking: None Resp Respiratory: Positive for SOB with activity and SOB at rest; Negative for SOB orthopnea\SOB lying down GI GI: Negative nausea, vomiting, heartburn, bright, red blood in stools or black,tarry stools : Negative for hematuria Neuro Neuro: Positive for lightheadedness (occasional with quick positional changes); Negative for dizziness, near syncope, syncope, frequent falls, headache(s), weakness or blurry vision Endo Endo: Positive for fatigue Cardiology Exam Const Appearance: cooperative, healthy appearing, comfortable, no acute distress and well developed Nutritional Appearance: overweight Orientation: alert, awake and oriented x3 Head Head: normal to inspection Ears: hearing grossly normal bilaterally Nose: external nose normal Face and Sinus: face symmetric Eyes General: appearance normal, both eyes and all related structures Eyelids: eyelids normal Conjunctivae: conjunctivae normal EOM: EOM intact bilaterally Neck Neck: normal visual inspection and trachea midline; Negative no JVD Carotids: Negative bruit Chest Chest inspection: normal inspection of the chest Auscultation: Bilateral: Clear to Auscultation Cardio Palpation: normal PMI Rate: regular rate Rhythm: regular rhythm Heart sounds: S1 normal, S2 normal and murmur; Negative rub or gallop Murmur: Grade 3/6, harsh, mid systolic and radiates to carotids GI GI: normal to inspection Neuro General: patient alert, patient awake, patient oriented x3 and CN's II-XI intactbilaterally Extremities Pulses: Normal: Right Posterior Tibial Pulse, Left Posterior Tibial Pulse, RightRadial Pulse and Left Radial Pulse Lower Extremity Edema: None: Bilateral Psych Psychological: normal affect Supplemental Info Supplemental Information Stress Test 07/28/2024: Conclusion: Normal pharmacologic myocardial perfusion stress test. Preserved ejection fraction. Echocardiogram 06/22/2025: Interpretation Summary Normal LV size. Moderate concentric left ventricular hypertrophy. The left ventricular ejection fraction is 55 %. Severely dilated right ventricle. D shaped septum in systole and diastole. Moderate (2+) tricuspid valve insufficiency. Mild to moderate aortic stenosis. Above findings further similar to the previous echocardiogram. Echocardiogram 04/16/2024: Interpretation Summary Normal LV size. Moderately dilated right ventricle. The left atrium is severely enlarged. The right atrium is severely enlarged. Left ventricular systolic function is lower limits of normal. The left ventricular ejection fraction is 50 %. Mean aortic valve gradient 22 mmHg. Mild aortic stenosis. Echocardiogram 05/22/2022: Interpretation Summary Normal LV size. Left ventricular systolic function is lower limits of normal. ICD or pacer leads identified within the right ventricle. The left atrium is moderately enlarged. The right atrium is severely enlarged. Stage 2 diastolic dysfunction. Mild (1+) aortic valve insufficiency. Stress test 03/17/2022: Conclusion: Normal pharmacologic myocardial perfusion stress test. Preserved ejection fraction. Heart catheterization from 06/20/2019: CONCLUSIONS At least 50% distal left main coronary artery stenosis, mild left anterior descending artery stenosis, mild circumflex artery stenosis, ostial 40% right coronary artery and preserved left ventricular ejection fraction. RECOMMENDATIONS Surgery consult for coronary revascularization CORONARY ANGIOGRAPHY DOMINANCE: Left Dominant LEFT HEART ASSESSMENT Left Ventricular Ejection Fraction: by LV Gram 60 % Normal Left Ventricular systolic function LEFT MAIN: Mild calcification, 50 % distal % Stenosis LEFT ANTERIOR DESCENDING ARTERY: Mild luminal irregularities CIRCUMFLEX ARTERY: PROX CIRC: Mild luminal irregularities less than 30% RIGHT CORONARY ARTERY: Mild luminal irregularities less than 30% OSTIAL RCA: 40 % Stenosis Carotid duplex ultrasound from 07/17/2019: Interpretation Summary Significant irregular plague right distal common carotid Extensive calcific irregular plague at the proximal right internal carotid 50-69% stenosis right proximal internal carotid Increased velocity right carotid bulb suspicious for clinically significant disease >50% stenosis right external carotid Irregular calcific plague at the proximal left internal carotid Irregular plague at the proximal left external carotid 50-69% stenosis left internal carotid <50% stenosis left external carotid >50% stenosis right vertebral <50% stenosis left vertebral Ankle brachial index from 04/09/2020: Interpretation Summary Minimal arterial occlusive disease bilateral lower extremities at rest. Right lower extremity ankle-brachial indices at rest are both normal but the digital brachial index could not be obtained due to artificially elevated systolic pressure greater than 254 consistent with medial calcification of the vessel wall. Doppler waveforms of the right posterior tibial and dorsalis pedis are triphasic. Findings would suggest mild disease. Left lower extremity PT ankle-brachial index is normal with a slightly abnormal left DP index of 0.87. In and of itself that would be consistent with moderate severity of disease. Again the left posterior tibial and dorsalis pedis waveforms are triphasic at rest. The left digital brachial index is normal. Overall these findings would be consistent with mild disease. Labs: LDL Cholesterol, (0-130) 46 mg/dL HDL Cholesterol, (40-) 40 mg/dL Cholesterol, (200) 107 mg/dL Triglycerides, (-199) 105 mg/dL Diagnostics: Electrocardiogram Echocardiogram Stress Test Stress Test Nuclear Medicine Cardiac Catheterization Pacemaker Check Pacemaker Procedure Note Chest X-Ray Chest CTA Carotid Duplex Extremity Arterial Study Venous Doppler Study Pulmonary: Pulmonary Function Test Pulmonary Exercise Test Past Visits: Cardiology Visit Today Assessment and Plan Assessment and Plan (1) H/O coronary artery bypass surgery: Status: Chronic Comment: Redo sternotomy-CABG X 2: PHILLIPS to LAD, radial T graft off the LIAM to the principal obtuse marginal and ligation of left atrial appendage 08/28/19 Plan: Patient is status post CABG x 2 in 2019. Her most recent stress test from 07/28/2024 was negative for ischemia. This was reviewed with her. She appears stable at this time, and denies any recent symptoms or events. At this time, shewill continue with her current medical therapy, along with monitoring for any concerning symptoms. (2) Presence of cardiac pacemaker: Status: Chronic Comment: 2011, gen change 2017 Plan: Patient's most recent pacemaker interrogation from 07/13/2025 showed a presentingrhythm of AF/CIGARETTE INSPECTOR. Persistent atrial fibrillation, and no ventricular high rate episodes detected. Patient's battery life is 3 months. She will undergo generator change on 08/03/[address] West. (3) Longstanding persistent atrial fibrillation: Status: Chronic Comment: History of AV node ablation; Plan: Patient has a history of persistent atrial fibrillation/atrial flutter. Her echocardiogram from 06/22/2025 demonstrated an ejection fraction of 55%, and severely enlarged atriums. This was reviewed with patient. She appears to be in persistent atrial fibrillation noted on her pacemaker interrogation. She will continue Eliquis 5 mg twice daily, and metoprolol tartrate 12.5 mg twice daily. We will continue to monitor this through pacemaker interrogations. (4) Nonrheumatic aortic (valve) stenosis: Status: Chronic Plan: Patient has a history of nonrheumatic aortic valve stenosis. Her most recent echocardiogram from 06/22/2025 demonstrated mild-moderate aortic valve stenosis. This was reviewed with patient. We will continue to monitor this with history, exam, and echocardiograms as deemed appropriate. (5) Essential (primary) hypertension: Status: Chronic Plan: Patient has a history of hypertension. Her blood pressure is well-controlled inthe office today at 129/78. At this time, she will continue with her current medical therapy?Lasix 40 mg daily, metoprolol tartrate 12.5 mg twice daily, and spironolactone 25 mg daily. She will monitor her blood pressures at home, and notify our office of any persistently elevated or low blood pressure readings. (6) HLD (hyperlipidemia): Status: Chronic Qualifiers: Hyperlipidemia type: pure hypercholesterolemia Qualified Code(s): E78.00 - Pure hypercholesterolemia, unspecified Plan: Patient has a history of hyperlipidemia. Her PCP monitors this. Her most recent lipid panel from 08/15/2023: Cholesterol 107, HDL 40, LDL 46, triglycerides 105. She will continue atorvastatin 40 mg daily, along with aggressive risk factor lifestyle modifications. A copy of her most recent lipidpanel would be greatly appreciated for continuity of care. (7) MORALES (dyspnea on exertion): Status: Acute Plan: Patient acknowledges dyspnea on exertion. Her echocardiogram on 06/22/2025 demonstrated an ejection fraction of 55%, and mild-moderate aortic valve stenosis. Her stress test from 07/28/2024 was negative for ischemia. Will obtain lab work today to further assess this. Depending on results, further recommendations will be made. Orders: Orders Pro- Brain NATRIURETIC PEPTIDE Today R06.02 - Shortness of breath Plan Details Additional Comments: Patient will follow up in 3-4 months, or sooner if needed. Thank you for allowing me to participate in the care of your patient. Please don't hesitate to call if any issues arise. This note was generated using a voice recognition system and there may be incorrect words, spelling, or punctuation that were not noted when reviewing theoffice note prior to saving. Portions of this documentation were copied and pasted from previous office visitnotes to provide a cohesive continuity of the history. The note has been reviewed, edited, and updated, as necessary. Follow Up: 3-4 Months (DRILL HAND/PA) Coding Level of Care Code Off vis,est,level 4 Diagnoses H/O coronary artery bypass surgery Z95.1 Presence of cardiac pacemaker Z95.0 Longstanding persistent atrial fibrillation I48.11 Nonrheumatic aortic (valve) stenosis I35.0 Essential (primary) hypertension I10 Pure hypercholesterolemia E78.00 Hyperlipidemia type: pure hypercholesterolemia MORALES (dyspnea on exertion) R06.09 Coding Level of Care Code Off vis,est,level 4 Diagnoses H/O coronary artery bypass surgery Z95.1 Presence of cardiac pacemaker Z95.0 Longstanding persistent atrial fibrillation I48.11 Nonrheumatic aortic (valve) stenosis I35.0 Essential (primary) hypertension I10 Pure hypercholesterolemia E78.00 Hyperlipidemia type: pure hypercholesterolemia MORALES (dyspnea on exertion) R06.09 Clinical Quality Measures Falls Risk Screening/Assistive Devices Have you fallen in the past year?: Yes Cardiac Ejection fraction %: 55 07/20/25 1781 <Electronically signed by Bailey Topete NP, NP-C> Date _ Bailey GUTHRIEC Cosigner Signature: Date (if applicable) CC: ~ [employer] Work Phone: Reason for referral (narrative)No reason for referral information availableE[facility] Work Phone: Advance Directives No Advanced Directives Records FoundLatest Code Status on File Code Status Date Activated Date Inactivated Comments Full Code-Unverified 07/31/2012 5:32 PM 08/02/2012 3:15 PM Full Code 07/30/2012 9:42 AM 07/31/2012 5:32 PM Advance Directive Response Recorded Date/ Time Advance Directives Yes June 20, 2019 9:08am Living Will No July 13, 2020 10:54am Power of Screen Writer No June 10:54am Advance Directive Response Recorded Date/ Time Name of Medical Power of Screen Writer ALEXA SMITH June 06, 2022 10:19pm Advance Directives Yes June 20, 2019 9:08am Living Will Yes June 06, 2022 10:19pm Power of Screen Writer Yes June 06 10:19pm Advance Directive Response Recorded Date/ Time Name of Medical Power of Screen Writer ALEXA SMITH June 06, 2022 9:19pm Advance Directives Yes June 20, 2019 8:08am Living Will Yes June 06, 2022 9:19pm Power of Screen Writer Yes June 06 9:19pm Advance Directive Response Recorded Date/ Time Advance Directives Yes June 20, 2019 9:08am Living Will Yes June 06, 2022 10:19pm Power of Screen Writer Yes June 06 10:19pm Advance Directive Response Recorded Date/ Time Advance Directives Yes June 20, 2019 9:08am Living Will No April 06, 2023 9 :06am Power of Screen Writer No April 06, 2023 9:06am Advance Directive Response Recorded Date/ Time Living Will No April 06, 2023 9 :06am Do you have a Healthcare Power of Screen Writer? No April 06, 2023 9:06am Advance Directives Yes June 20, 2019 9:08am Advance Directive Response Recorded Date/ Time Living Will No April 06, 2023 9 :06am Do you have a Healthcare Power of Screen Writer? No April 06, 2023 9:06am Do you have a Healthcare Power of Screen Writer? No July 22, 2025 5:14pm Advance Directives Yes June 20, 2019 9:08am Advance Directive Response Recorded Date/ Time Living Will No April 06, 2023 9 :06am Do you have a Healthcare Pow er of Screen Writer? No April 06, 2023 9:06am Do you have a Healthcare Pow er of Screen Writer? No July 22, 2025 5:14pm Advance Directives on File Yes Octob er 2024 11:10am Living Will Yes August 03 11:10am Do you have a Healthcare Pow er of Screen Writer? Yes August 03, 2025 11:10am Name of Medical Power of Screen Writer [place] daughter August 03, 2025 11:10am Advance Directives Yes August 03, 2025 11:10am Advance Directive Response Recorded Date/ Time Living Will No April 06, 2023 9 :06am Do you have a Healthcare Pow er of Screen Writer? No April 06, 2023 9:06am Advance Directives Yes August 14, 2025 2:07pm Do you have a Healthcare Pow er of Screen Writer? No July 22, 2025 5:14pm Advance Directives on File Yes Octob er 2024 11:10am Living Will Yes August 03 11:10am Do you have a Healthcare Pow er of Screen Writer? Yes August 03, 2025 11:10am Name of Medical Power of Screen Writer [place] daughter August 03, 2025 11:10am Chief Complaint and Reason for Visit Chief Complaint COVID TEST AND POSSI BLE KNEE XRAY xray +COVID TEST 1 WK PRIOR/NO BETTER/ 2ND VISIT 6 M FU 3 mos remote PPM f/u SCREENING CHEST PAIN CHEST PAIN Reason for Visit Right medial knee pa in SARS-CoV-2 positive COVID-19 Chronic diastolic (congestive) heart failure Essential (primary) hypertension HLD (hyperlipidemia) Longstanding persistent atrial fibrillation Nonrheumatic aortic (valve) stenosis Presence of cardiac pacemaker H/O coronary artery bypass surgery Chronic diastolic (congestive) heart failure Complete heart block Longstanding persistent atrial fibrillation Presence of cardiac pacemaker Chief Complaint COVID TEST AND POSSI BLE KNEE XRAY xray +COVID TEST 1 WK PRIOR/NO BETTER/ 2ND VISIT 6 M FU 3 mos remote PPM f/u SCREENING CHEST PAIN CHEST PAIN LEFT LEG SKIN LESSIONS wound Reason for Visit Right medial knee pa in SARS-CoV-2 positive COVID-19 Chronic diastolic (congestive) heart failure Essential (primary) hypertension HLD (hyperlipidemia) Longstanding persistent atrial fibrillation Nonrheumatic aortic (valve) stenosis Presence of cardiac pacemaker H/O coronary artery bypass surgery Chronic diastolic (congestive) heart failure Complete heart block Longstanding persistent atrial fibrillation Presence of cardiac pacemaker Lower leg abrasion Neuropathy of right foot Peripheral vascular disease, unspecified Venous insufficiency (chronic) (peripheral) Chief Complaint COVID TEST AND POSSI BLE KNEE XRAY xray +COVID TEST 1 WK PRIOR/NO BETTER/ 2ND VISIT 6 M FU 3 mos remote PPM f/u SCREENING CHEST PAIN CHEST PAIN LEFT LEG SKIN LESSIONS wound 2 M FU wound COMPLETE AV BLOCK, MURMUR *JENNA* Reason for Visit Right medial knee pa in SARS-CoV-2 positive COVID-19 Chronic diastolic (congestive) heart failure Essential (primary) hypertension HLD (hyperlipidemia) Longstanding persistent atrial fibrillation Nonrheumatic aortic (valve) stenosis Presence of cardiac pacemaker H/O coronary artery bypass surgery Chronic diastolic (congestive) heart failure Complete heart block Longstanding persistent atrial fibrillation Presence of cardiac pacemaker Lower leg abrasion Neuropathy of right foot Peripheral vascular disease, unspecified Venous insufficiency (chronic) (peripheral) Mild aortic stenosis Chronic diastolic (congestive) heart failure Essential (primary) hypertension HLD (hyperlipidemia) Longstanding persistent atrial fibrillation Presence of cardiac pacemaker H/O coronary artery bypass surgery Chief Complaint +COVID TEST 1 WK MAYA OR/NO BETTER/ 2ND VISIT 6 M FU 3 mos remote PPM f/u SCREENING CHEST PAIN CHEST PAIN LEFT LEG SKIN LESSIONS wound 2 M FU wound COMPLETE AV BLOCK, MURMUR *JENNA* DIZZINESS Reason for Visit COVID-19 Chronic diastolic (congestive) heart failure Essential (primary) hypertension HLD (hyperlipidemia) Longstanding persistent atrial fibrillation Nonrheumatic aortic (valve) stenosis Presence of cardiac pacemaker H/O coronary artery bypass surgery Chronic diastolic (congestive) heart failure Complete heart block Longstanding persistent atrial fibrillation Presence of cardiac pacemaker Lower leg abrasion Neuropathy of right foot Peripheral vascular disease, unspecified Venous insufficiency (chronic) (peripheral) Mild aortic stenosis Chronic diastolic (congestive) heart failure Essential (primary) hypertension HLD (hyperlipidemia) Longstanding persistent atrial fibrillation Presence of cardiac pacemaker H/O coronary artery bypass surgery Chief Complaint 2 M FU wound COMPLETE AV BLOCK, MURMUR *JENNA* 3 mos remote PPM f/u DIZZINESS POISON GLENYS/SPIDER BITE ON ARM 6 M FU CHRONIC OBSTRUCTIVE PULMONARY DISEASE CHRONIC OBSTRUCTIVE PULMONARY DISEASE CHRONIC OBSTRUCTIVE PULMONARY DISEASE Reason for Visit Mild aortic stenosis Chronic diastolic (congestive) heart failure Essential (primary) hypertension HLD (hyperlipidemia) Longstanding persistent atrial fibrillation Presence of cardiac pacemaker H/O coronary artery bypass surgery Chronic diastolic (congestive) heart failure Complete heart block Longstanding persistent atrial fibrillation Presence of cardiac pacemaker Contact dermatitis due to poison glenys Asthma-COPD overlap syndrome Chief Complaint 3 mos remote PPM f/u DIZZINESS POISON GLENYS/SPIDER BITE ON ARM 6 M FU CHRONIC OBSTRUCTIVE PULMONARY DISEASE CHRONIC OBSTRUCTIVE PULMONARY DISEASE CHRONIC OBSTRUCTIVE PULMONARY DISEASE CHRONIC OBSTRUCTIVE PULMONARY DISEASE 1 M FU 3 mos remote PPM f/u 9 M FU EORDER Reason for Visit Chronic diastolic (c ongestive) heart failure Complete heart block Longstanding persistent atrial fibrillation Presence of cardiac pacemaker Contact dermatitis due to poison glenys Asthma-COPD overlap syndrome Asthma-COPD overlap syndrome Longstanding persistent atrial fibrillation Presence of cardiac pacemaker Mild aortic stenosis Chronic diastolic (congestive) heart failure Essential (primary) hypertension HLD (hyperlipidemia) Longstanding persistent atrial fibrillation Presence of cardiac pacemaker H/O coronary artery bypass surgery Chief Complaint 3 mos remote ppm f/u 6 M FU SCREENING 6 M FU 3 mos remote PPM f/u Reason for Visit Chronic diastolic (c ongestive) heart failure Complete heart block Longstanding persistent atrial fibrillation Presence of cardiac pacemaker Essential (primary) hypertension HLD (hyperlipidemia) Longstanding persistent atrial fibrillation Nonrheumatic aortic (valve) stenosis Presence of cardiac pacemaker H/O coronary artery bypass surgery Asthma-COPD overlap syndrome Chronic diastolic (congestive) heart failure Complete heart block Longstanding persistent atrial fibrillation Presence of cardiac pacemaker Chief Complaint 5 m fu 6 M FU EORDER WOUND Reason for Visit Asthma-COPD overlap syndrome MORALES (dyspnea on exertion) Fatigue Essential (primary) hypertension HLD (hyperlipidemia) Longstanding persistent atrial fibrillation Nonrheumatic aortic (valve) stenosis Presence of cardiac pacemaker H/O coronary artery bypass surgery Atherosclerosis of both carotid arteries Degenerative disc disease, thoracic Diverticulosis Gout History of carpal tunnel surgery of left wrist History of right hip replacement History of stent insertion of renal artery Mild aortic stenosis Osteoarthritis Rheumatoid arthritis Venous stasis dermatitis Asthma-COPD overlap syndrome 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 Chronic diastolic (congestive) heart failure Chronic venous insufficiency COPD (chronic obstructive pulmonary disease) Essential (primary) hypertension HLD (hyperlipidemia) 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 Longstanding persistent atrial fibrillation Neuropathy of right foot Nonrheumatic aortic (valve) stenosis Peripheral vascular disease, unspecified Presence of cardiac pacemaker H/O coronary artery bypass surgery History of coronary artery stent placement History of open heart surgery Chief Complaint 5 m fu 6 M FU EORDER WOUND EORDER Reason for Visit Asthma-COPD overlap syndrome MORALES (dyspnea on exertion) Fatigue Essential (primary) hypertension HLD (hyperlipidemia) Longstanding persistent atrial fibrillation Nonrheumatic aortic (valve) stenosis Presence of cardiac pacemaker H/O coronary artery bypass surgery Atherosclerosis of both carotid arteries Degenerative disc disease, thoracic Diverticulosis Gout History of carpal tunnel surgery of left wrist History of right hip replacement History of stent insertion of renal artery Mild aortic stenosis Osteoarthritis Rheumatoid arthritis Venous stasis dermatitis Asthma-COPD overlap syndrome 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 Chronic diastolic (congestive) heart failure Chronic venous insufficiency COPD (chronic obstructive pulmonary disease) Essential (primary) hypertension HLD (hyperlipidemia) care home (current) use of anticoagulants Longstanding persistent atrial fibrillation Neuropathy of right foot Nonrheumatic aortic (valve) stenosis Peripheral vascular disease, unspecified Presence of cardiac pacemaker H/O coronary artery bypass surgery History of coronary artery stent placement History of open heart surgery Chief Complaint Admit Date Pacer Check Remote January 12, 2025 2:1 2am 7 M FU March 19, 2025 8:25a m Pacer Check Remote April 13, 2025 4:08 am Reason for Visit Admit Date MORALES (dyspnea on exertion) March 19, 2025 8:25am Essential (primary) hypertension February 8:25am HLD (hyperlipidemia) March 19, 2025 8:25 am Longstanding persistent atrial fibrillat ion March 19, 2025 8:25am Nonrheumatic aortic (valve) stenosis March 19, 2025 8:25am Presence of cardiac pacemaker March 19, 2025 8:25am H/O coronary artery bypass surgery February [id number] 8:25am Chief Complaint Admit Date Pacer Check Remote January 12, 2025 2:1 2am 7 M FU March 19, 2025 8:25a m Pacer Check Remote April 13, 2025 4:08 am 1 Y FU April 27, 2025 12:4 7pm Reason for Visit Admit Date MORALES (dyspnea on exertion) March 19, 2025 8:25am Essential (primary) hypertension February 8:25am HLD (hyperlipidemia) March 19, 2025 8:25 am Longstanding persistent atrial fibrillat ion March 19, 2025 8:25am Nonrheumatic aortic (valve) stenosis March 19, 2025 8:25am Presence of cardiac pacemaker March 19, 2025 8:25am H/O coronary artery bypass surgery February [id number] 8:25am Hypoxia April 27, 2025 12:4 7pm Reason for Visit Admit Date MORALES (dyspnea on exertion) March 19, 2025 8:25am Essential (primary) hypertension February 8:25am HLD (hyperlipidemia) March 19, 2025 8:25 am Longstanding persistent atrial fibrillat ion March 19, 2025 8:25am Nonrheumatic aortic (valve) stenosis March 19, 2025 8:25am Presence of cardiac pacemaker March 19, 2025 8:25am H/O coronary artery bypass surgery February [id number] 8:25am Hypoxia April 27, 2025 12:4 7pm Asthma-COPD overlap syndrome April 27, 2025 12:47pm Chief Complaint Admit Date 7 M FU March 19, 2025 8:25a m Pacer Check Remote April 13, 2025 4:08 am 1 Y FU April 27, 2025 12:4 7pm DYSPNEA May 08, 2025 9:29 am DYSPNEA May 12, 2025 9:33 am Chief Complaint Admit Date 7 M FU March 19, 2025 8:25a m Pacer Check Remote April 13, 2025 4:08 am 1 Y FU April 27, 2025 12:4 7pm DYSPNEA May 08, 2025 9:29 am DYSPNEA May 12, 2025 9:33 am 1 M FU May 28, 2025 2:47 pm Chief Complaint Admit Date 7 M FU March 19, 2025 8:25a m Pacer Check Remote April 13, 2025 4:08 am 1 Y FU April 27, 2025 12:4 7pm DYSPNEA May 08, 2025 9:29 am DYSPNEA May 12, 2025 9:33 am 1 M FU May 28, 2025 2:47 pm LUMBAR STENOSIS & RADICULOPATHY. LUMBAGO W/SCIATIC June 17, 2025 1:59pm 3 M FU June 19, 2025 10 :21am Reason for Visit Admit Date MORALES (dyspnea on exertion) March 19, 2025 8:25am Essential (primary) hypertension February 8:25am HLD (hyperlipidemia) March 19, 2025 8:25 am Longstanding persistent atrial fibrillat ion March 19, 2025 8:25am Nonrheumatic aortic (valve) stenosis March 19, 2025 8:25am Presence of cardiac pacemaker March 19, 2025 8:25am H/O coronary artery bypass surgery February [id number] 8:25am Hypoxia April 27, 2025 12:4 7pm Asthma-COPD overlap syndrome April 27, 2025 12:47pm Hypoxia May 28, 2025 2:47 pm Asthma-COPD overlap syndrome May 28, 2025 2:47pm Mild aortic stenosis May 28, 2025 2:4 7pm MORALES (dyspnea on exertion) June 19, 2 025 10:21am Essential (primary) hypertension June 19, 2025 10:21am HLD (hyperlipidemia) June 19, 2025 1 0:21am Longstanding persistent atrial fibrillat ion June 19, 2025 10:21am Nonrheumatic aortic (valve) stenosis Aug t 2024 10:21am Presence of cardiac pacemaker May 10:21am H/O coronary artery bypass surgery Augus t 2024 10:21am Chief Complaint Admit Date 7 M FU March 19, 2025 8:25a m Pacer Check Remote April 13, 2025 4:08 am 1 Y FU April 27, 2025 12:4 7pm DYSPNEA May 08, 2025 9:29 am DYSPNEA May 12, 2025 9:33 am 1 M FU May 28, 2025 2:47 pm 3 M FU June 19, 2025 10 :21am Nonrheumatic aortic (valve) stenosis Aug ust 2024 12:47pm Amb Documentation June 22, 2025 4: 34pm LUMBAR STENOSIS & RADICULOPATHY. LUMBAGO W/SCIATIC June 23, 2025 11:00am Reason for Visit Admit Date MORALES (dyspnea on exertion) March 19, 2025 8:25am Essential (primary) hypertension February 8:25am H/O coronary artery bypass surgery February [id number] 8:25am HLD (hyperlipidemia) March 19, 2025 8:25 am Longstanding persistent atrial fibrillat ion March 19, 2025 8:25am Nonrheumatic aortic (valve) stenosis March 19, 2025 8:25am Presence of cardiac pacemaker March 19, 2025 8:25am Hypoxia April 27, 2025 12:4 7pm Asthma-COPD overlap syndrome April 27, 2025 12:47pm Hypoxia May 28, 2025 2:47 pm Asthma-COPD overlap syndrome May 28, 2025 2:47pm Mild aortic stenosis May 28, 2025 2:4 7pm MORALES (dyspnea on exertion) June 19, 10:21am Essential (primary) hypertension June 19, 2025 10:21am H/O coronary artery bypass surgery Augus t 2024 10:21am HLD (hyperlipidemia) June 19, 2025 1 0:21am Longstanding persistent atrial fibrillat ion June 19, 2025 10:21am Nonrheumatic aortic (valve) stenosis Aug t 2024 10:21am Presence of cardiac pacemaker May 10:21am Chief Complaint Admit Date 7 M FU March 19, 2025 8:25a m Pacer Check Remote April 13, 2025 4:08 am 1 Y FU April 27, 2025 12:4 7pm DYSPNEA May 08, 2025 9:29 am DYSPNEA May 12, 2025 9:33 am 1 M FU May 28, 2025 2:47 pm 3 M FU June 19, 2025 10 :21am Nonrheumatic aortic (valve) stenosis Aug us2024 12:47pm Amb Documentation June 22, 2025 4: 34pm LUMBAR STENOSIS & RADICULOPATHY. LUMBAGO W/SCIATIC July 07, 2025 11:00am Pacer Check Remote July 13, 2025 2:11am Chief Complaint Admit Date Pacer Check Remote April 13, 2025 4:08 am 1 Y FU April 27, 2025 12:4 7pm DYSPNEA May 08, 2025 9:29 am DYSPNEA May 12, 2025 9:33 am 1 M FU May 28, 2025 2:47 pm 3 M FU June 19, 2025 10 :21am Nonrheumatic aortic (valve) stenosis Aug 2024 12:47pm Amb Documentation June 22, 2025 4: 34pm Pacer Check Remote July 13, 2025 2:11am LUMBAR STENOSIS & RADICULOPATHY. LUMBAGO W/SCIATIC July 17, 2025 11:00am PACER CHECK/KR @ 11:30 July 20, 2 025 10:58am 1 M FU/PRICILLA @ 11 July 20, 2025 10:59am fall July 22, 2025 5:10pm Reason for Visit Admit Date Hypoxia April 27, 2025 12:4 7pm Asthma-COPD overlap syndrome April 27, 2025 12:47pm Hypoxia May 28, 2025 2:47 pm Asthma-COPD overlap syndrome May 28, 2025 2:47pm Mild aortic stenosis May 28, 2025 2:4 7pm MORALES (dyspnea on exertion) June 19, 2 025 10:21am Essential (primary) hypertension June 19, 2025 10:21am H/O coronary artery bypass surgery Augus t 2024 10:21am HLD (hyperlipidemia) June 19, 2025 1 0:21am Longstanding persistent atrial fibrillat ion June 19, 2025 10:21am Nonrheumatic aortic (valve) stenosis Aug ust 2024 10:21am Presence of cardiac pacemaker May 10:21am Complete heart block July 20 10:58am Longstanding persistent atrial fibrillat ion July 20, 2025 10:58am Presence of cardiac pacemaker July 20, 2025 10:58am MORALES (dyspnea on exertion) June 10:59am Essential (primary) hypertension Septemb er 2024 10:59am H/O coronary artery bypass surgery Septe mber 2024 10:59am HLD (hyperlipidemia) July 20 10:59am Longstanding persistent atrial fibrillat ion July 20, 2025 10:59am [facility]rhe[facility]valve) [facility] 10[facility]59[facility] Presence of cardiac pacemaker July 20, 2025 10:59am Chief Complaint Admit Date Pacer Check Remote April 13, 2025 4:08 am 1 Y FU April 27, 2025 12:4 7pm DYSPNEA May 08, 2025 9:29 am DYSPNEA May 12, 2025 9:33 am 1 M FU May 28, 2025 2:47 pm 3 M FU June 19, 2025 10 :21am Nonrheumatic aortic (valve) stenosis Aug us2024 12:47pm Amb Documentation June 22, 2025 4: 34pm Pacer Check Remote July 13, 2025 2:11am LUMBAR STENOSIS & RADICULOPATHY. LUMBAGO W/SCIATIC July 17, 2025 11:00am PACER CHECK/KR @ 11:30 July 20, 2 025 10:58am 1 M FU/PRICILLA @ July 20, 2025 10:59am fall July 22, 2025 5:10pm 1 UNIT PRBC July 30, 2025 8: 13am Chief Complaint Admit Date Pacer Check Remote April 13, 2025 4:08 am 1 Y FU April 27, 2025 12:4 7pm DYSPNEA May 08, 2025 9:29 am DYSPNEA May 12, 2025 9:33 am 1 M FU May 28, 2025 2:47 pm 3 M FU June 19, 2025 10 :21am Nonrheumatic aortic (valve) stenosis May us2024 12:47pm Amb Documentation June 22, 2025 4: 34pm Pacer Check Remote July 13, 2025 2:11am LUMBAR STENOSIS & RADICULOPATHY. LUMBAGO W/SCIATIC July 17, 2025 11:00am PACER CHECK/KR @ :July 20, 2 025 10:58am 1 M FU/PRICILLA @ July 20, 2025 10:59am fall July 22, 2025 5:10pm LAB WORK July 28, 2025 6:12am 1 UNIT PRBC July 30, 2025 8: 13am Normal Battery depletion. August 03, 2 025 10:44am Chief Complaint Admit Date 1 Y FU April 27, 2025 12:4 7pm DYSPNEA May 08, 2025 9:29 am DYSPNEA May 12, 2025 9:33 am 1 M FU May 28, 2025 2:47 pm 3 M FU June 19, 2025 10 :21am Nonrheumatic aortic (valve) stenosis Aug 2024 12:47pm Amb Documentation June 22, 2025 4: 34pm Pacer Check Remote July 13, 2025 2:11am LUMBAR STENOSIS & RADICULOPATHY. LUMBAGO W/SCIATIC July 17, 2025 11:00am PACER CHECK/KR @ 11:30 July 20, 2 025 10:58am 1 M FU/PRICILLA @ 11 July 20, 2025 10:59am fall July 22, 2025 5:10pm LAB WORK July 28, 2025 6:12am ADMISSION H&P EXAM July 28, 2025 3:31pm 1 UNIT PRBC July 30, 2025 8: 13am LAB WORK July 31, 2025 5: 00am Normal Battery depletion. August 03, 2 025 10:44am Pacer Check Remote August 10, 2025 9 :00am 1 wk s/p PPM generator change wound chec k August 10, 2025 12:59pm Reason for Visit Admit Date Hypoxia April 27, 2025 12:4 7pm Asthma-COPD overlap syndrome April 27, 2025 12:47pm Hypoxia May 28, 2025 2:47 pm Asthma-COPD overlap syndrome May 28, 2025 2:47pm Mild aortic stenosis May 28, 2025 2:4 7pm MORALES (dyspnea on exertion) June 19, 2 025 10:21am Essential (primary) hypertension June 19, 2025 10:21am H/O coronary artery bypass surgery Augus t 2024 10:21am HLD (hyperlipidemia) June 19, 2025 1 0:21am Longstanding persistent atrial fibrillat ion June 19, 2025 10:21am Nonrheumatic aortic (valve) stenosis Aug ust 2024 10:21am Presence of cardiac pacemaker May 10:21am Complete heart block July 20 10:58am Longstanding persistent atrial fibrillat ion July 20, 2025 10:58am Presence of cardiac pacemaker July 20, 2025 10:58am MORALES (dyspnea on exertion) June 10:59am Essential (primary) hypertension Septemb er 2024 10:59am H/O coronary artery bypass surgery Septe mber 2024 10:59am HLD (hyperlipidemia) July 20 10:59am Longstanding persistent atrial fibrillat ion July 20, 2025 10:59am Nonrheumatic aortic (valve) stenosis Sep tember 2024 10:59am Presence of cardiac pacemaker July 20, 2025 10:59am Complete heart block August 10, 2025 12:59pm Longstanding persistent atrial fibrillat ion August 10, 2025 12:59pm Presence of cardiac pacemaker August [id number] 12:59pm Chief Complaint Admit Date DYSPNEA May 08, 2025 9:29 am DYSPNEA May 12, 2025 9:33 am 1 M FU May 28, 2025 2:47 pm 3 M FU June 19, 2025 10 :21am Nonrheumatic aortic (valve) stenosis Aug us2024 12:47pm Amb Documentation June 22, 2025 4: 34pm Pacer Check Remote July 13, 2025 2:11am LUMBAR STENOSIS & RADICULOPATHY. LUMBAGO W/SCIATIC July 17, 2025 11:00am PACER CHECK/KR @ 11:30 July 20, 2 025 10:58am 1 M FU/PRICILLA @ 11 July 20, 2025 10:59am fall July 22, 2025 5:10pm LAB WORK July 28, 2025 6:12am ADMISSION H&P EXAM July 28, 2025 3:31pm 1 UNIT PRBC July 30, 2025 8: 13am LAB WORK July 31, 2025 5: 00am Normal Battery depletion. August 03, 025 10:44am Pacer Check Remote August 10, 2025 9 :00am 1 wk s/p PPM generator change wound chec k August 10, 2025 12:59pm Reason for Visit Admit Date Hypoxia May 28, 2025 2:47 pm Asthma-COPD overlap syndrome May 28, 2025 2:47pm Mild aortic stenosis May 28, 2025 2:4 7pm MORALES (dyspnea on exertion) June 19, 2 025 10:21am Essential (primary) hypertension June 19, 2025 10:21am H/O coronary artery bypass surgery Augus t 2024 10:21am HLD (hyperlipidemia) June 19, 2025 1 0:21am Longstanding persistent atrial fibrillat ion June 19, 2025 10:21am Nonrheumatic aortic (valve) stenosis Aug ust 2024 10:21am Presence of cardiac pacemaker May 10:21am Complete heart block July 20 10:58am Longstanding persistent atrial fibrillat ion July 20, 2025 10:58am Presence of cardiac pacemaker July 20, 2025 10:58am MORALES (dyspnea on exertion) June 10:59am Essential (primary) hypertension Septemb er 2024 10:59am H/O coronary artery bypass surgery Septe mber 2024 10:59am HLD (hyperlipidemia) July 20 10:59am Longstanding persistent atrial fibrillat ion July 20, 2025 10:59am Nonrheumatic aortic (valve) stenosis Sep tember 2024 10:59am Presence of cardiac pacemaker July 20, 2025 10:59am Complete heart block August 10, 2025 12:59pm Longstanding persistent atrial fibrillat ion August 10, 2025 12:59pm Presence of cardiac pacemaker August 102024 12:59pm Family History No Family History Records Found Relationship Condition Age at Onset Recorded Date/T pat father Myocardial infarction Unknown mother Malignant neoplasm Unknown sister Dementia Unknown sister Malignant neoplasm of colon Unknown Summary Purpose Additional Source Comments Reason for Visit (unrecogniz ed section and content) Reason Comments Appointment Goals (unrecognized section and content) Goals may be documented in a n alternate sectionGoals may be documented in an alternate sectionGoals may be documented in an alternate sectionGoals may be documented in an alternate sectionGoals may be documented in an alternate sectionGoals may be documented in an alternate sectionGoals may be documented in an alternate sectionGoals may be documented in an alternate sectionGoals may be documented in an alternate sectionGoals may be documented in an alternate sectionGoals may be documented in an alternate sectionGoals may be documented in an alternate sectionGoals may be documented in an alternate sectionGoals may be documented in an alternate sectionGoals may be documented in an alternate sectionGoals may be documented in an alternate sectionGoals may be documented in an alternate sectionGoals may be documented in an alternate sectionGoals may be documented in an alternate sectionGoals may be documented in an alternate sectionGoals may be documented in an alternate sectionGoals may be documented in an alternate sectionGoals may be documented in an alternate sectionGoals may be documented in an alternate sectionGoals may be documented in an alternate sectionGoals may be documented in an alternate sectionGoals may be documented in an alternate sectionGoals may be documented in an alternate section Care Teams (unrecognized sec tion and content) Team Status: Active Member Role Status Dates Dr. Todd Carbajal DO Family Provider Active Dr. Todd Carbajal DO Primary Care Provider Active Team Status: Inactive Member Role Status Dates Dr. Todd Carbajal DO Primary Care Provider, Referrin g Provider Active Dr. Amadou Major MD Attending Provider Active Team Status: Inactive Member Role Status Dates Dr. Todd Carbajal DO Primary Care Provider, Referrin g Provider Active Dr. lEijah West MD Attending Provider Active Team Status: Inactive Member Role Status Dates Dr. Todd Carbajal DO Primary Care Provider Active Deonna Hernandez Active Dr. Elijah West MD Attending Provider, Referring Pro vider Active Team Status: Inactive Member Role Status Dates Dr. Todd Carbajal DO Primary Care Provider, Referrin g Provider Active Deonna Hernandez Attending Provider Active Team Status: Inactive Member Role Status Dates Dr. Todd Carbajal DO Primary Care Prov ider, Attending Provider, Referring Provider Active Team Status: Inactive Member Role Status Dates Dr. Todd Carbajal DO Primary Care Provider, Referrin g Provider Active Bailey Topete DRILL [employer], DRILL [employer]-C Attending Provider Active Team Status: Inactive Member Role Status Dates Dr. Todd Carbajal DO Primary Care Provider, Referrin g Provider Active Zeina Bran D[employer], DRILL [employer]-C Attending Provider Active Team Status: Active Member Role Status Dates Dr. Todd Carbajal DO Primary Care Provider, Referrin g Provider Active Dr. Ephraim Luke MD Attending Provider Active Team Status: Inactive Member Role Status Dates Dr. Todd Carbajal DO Primary Care Provider Active Bailey Topete D[employer], DRILL [employer]-C Attending Provider, Referring P rolukaszder Active Team Status: Inactive Member Role Status Dates Dr. Todd Carbajal DO Primary Care Provider, Referrin g Provider Active Dr. Ephraim Luke MD Attending Provider Active Team Status: Active Member Role/Relationship Status Dates Teagan Bosch , [employer]-C Primary Care Provider Active Team Status: Inactive Member Role/Relationship Status Dates Teagan Bosch , [employer]-C Primary Care Provider Active Start: January 12, 2025 End: January 12, 2025 Dr. Elijah West MD Attending Provider Active S tart: January 12, 2025 End: January 12, 2025 Dr. Elijah West MD Referring Provider Active S tart: January 12, 2025 End: January 12, 2025 Team Status: Inactive Member Role/Relationship Status Dates Teagan Bosch [employer] Primary Care Provider Active Start: March 19, 2025 End: March 19, 2025 Teagan Bosch , [employer]-C Referring Provider Active St art: March 19, 2025 End: March 19, 2025 Bailey Topete NP, [employer] Attending Provider Active Start: March 19, 2025 End: March 19, 2025 Team Status: Inactive Member Role/Relationship Status Dates Teagan Bosch , [employer] Primary Care Provider Active Start: April 13, 2025 End: April 13, 2025 Dr. Elijah West MD Attending Provider Active S tart: April 13, 2025 End: April 13, 2025 Team Status: Inactive Member Role/Relationship Status Dates Dr. Todd Carbajal DO Referring Provider Active Start: April 27, 2025 End: April 27, 2025 Zeina Bran D[employer], D[employer]-C Attending Provider Active Start: April 27, 2025 End: April 27, 2025 Teagan Bosch , [employer]-C Primary Care Provider Active Start: April 27, 2025 End: April 27, 2025 Team Status: Inactive Member Role/Relationship Status Dates Teagan Bosch , [employer]-C Primary Care Provider Active Start: March 19, 2025 End: March 19, 2025 Teagan Bosch , D[employer]-C Referring Provider Active St art: March 19, 2025 End: March 19, 2025 Bailey Topete NP, [employer]-C Attending Provider Active Start: March 19, 2025 End: March 19, 2025 Team Status: Inactive Member Role/Relationship Status Dates Teagan Hiro , [employer]-C Primary Care Provider Active Start: April 13, 2025 End: April 13, 2025 Dr. Elijah West MD Attending Provider Active S tart: April 13, 2025 End: April 13, 2025 Dr. Elijah West MD Referring Provider Active S tart: April 13, 2025 End: April 13, 2025 Team Status: Inactive Member Role/Relationship Status Dates Dr. Todd Carbajal DO Referring Provider Active Start: April 27, 2025 End: April 27, 2025 Zeina Bran D[employer], DRILL [employer]-C Attending Provider Active Start: April 27, 2025 End: April 27, 2025 Teagan Bosch , [employer]-C Primary Care Provider Active Start: April 27, 2025 End: April 27, 2025 Team Status: Inactive Member Role/Relationship Status Dates Teagan Hiro , [employer]-C Primary Care Provider Active Start: May 08, 2025 End: May 08, 2025 Zeina Bran D[employer], DRI[employer]-C Attending Provider Active Start: May 08, 2025 End: May 08, 2025 Zeina Bran D[employer], D[employer]-C Referring Provider Active Start: May 08, 2025 End: May 08, 2025 Team Status: Active Member Role/Relationship Status Dates Teagan Bosch , [employer]-C Primary Care Provider Active Start: May 12, 2025 Zeina Bran D[employer], DRILL [employer]-C Referring Provider Active Start: May 12, 2025 Zeina Bran D[employer], DRILL [employer]-C Other Provider Active Start: May 12, 2025 Dr. Quinton Alfonso DO Attending Provider Active S tart: May 12, 2025 Team Status: Active Member Role/Relationship Status Dates Teagan Hiro , [employer] Primary Care Provider Active Start: May 12, 2025 Teagan Bosch , DRI[employer]-C Attending Provider Active St art: May 12, 2025 Teagan Bosch , D[employer]-C Referring Provider Active St art: May 12, 2025 Team Status: Inactive Member Role/Relationship Status Dates Teagan Hiro , [employer]-C Primary Care Provider Active Start: May 12, 2025 End: May 12, 2025 Teagan Bosch , DRI[employer]-C Attending Provider Active St art: May 12, 2025 End: May 12, 2025 Teagan Bosch , D[employer]-C Referring Provider Active St art: May 12, 2025 End: May 12, 2025 Team Status: Inactive Member Role/Relationship Status Dates Teagan Bosch , [employer]-C Primary Care Provider Active Start: May 28, 2025 End: May 28, 2025 Teagan Bosch , DRI[employer]-C Referring Provider Active St art: May 28, 2025 End: May 28, 2025 Zeina Bran D[employer], DRI[employer]-C Attending Provider Active Start: May 28, 2025 End: May 28, 2025 Team Status: Active Member Role/Relationship Status Dates Teaganrafa Bosch , [employer]-C Primary Care Provider Active Start: June 17, 2025 AMAYA Richard Attending Provider Active Start : June 17, 2025 AMAYA Richard Referring Provider Active Start : June 17, 2025 Team Status: Inactive Member Role/Relationship Status Dates Teaganrafa Bosch , [employer]-C Primary Care Provider Active Start: June 19, 2025 End: June 19, 2025 Teagan Bosch , D[employer]-C Referring Provider Active St art: June 19, 2025 End: June 19, 2025 Bailey Topete D[employer], DRILL [employer]-C Attending Provider Active Start: June 19, 2025 End: June 19, 2025 Team Status: Inactive Member Role/Relationship Status Dates Teaganrafa Bosch , [employer]-C Primary Care Provider Active Start: June 19, 2025 End: June 19, 2025 Teagan Bosch , D[employer]-C Referring Provider Active St art: June 19, 2025 End: June 19, 2025 Bailey Topete D[employer], DRI[employer]-C Attending Provider Active Start: June 19, 2025 End: June 19, 2025 Team Status: Inactive Member Role/Relationship Status Dates Teaganrafa Bosch , [employer]-C Primary Care Provider Active Start: June 22, 2025 End: June 22, 2025 Bailey Topete D[employer], DRILL [employer]-C Attending Provider Active Start: June 22, 2025 End: June 22, 2025 Bailey Topete D[employer], DRI[employer]-C Referring Provider Active Start: June 22, 2025 End: June 22, 2025 Team Status: Active Member Role/Relationship Status Dates Teagan Bosch , D[employer]-C Primary Care Provider Active Start: June 22, 2025 Dr. Elijah West MD Attending Provider Active S tart: June 22, 2025 Team Status: Active Member Role/Relationship Status Dates Teagan Bosch , [employer]-C Primary Care Provider Active Start: June 22, 2025 Bailey Topete D[employer], DRILL [employer]-C Attending Provider Active Start: June 22, 2025 Team Status: Active Member Role/Relationship Status Dates Teaganrafa Bosch , D[employer]-C Primary Care Provider Active Start: June 23, 2025 AMAYA Richard Attending Provider Active Start : June 23, 2025 AMAYA Richard Referring Provider Active Start : June 23, 2025 Team Status: Active Member Role/Relationship Status Dates Teagan Bosch , [employer]-C Primary care physician Active Team Status: Inactive Member Role/Relationship Status Dates Teagan Boshc , [employer]-C Primary care physician Active Start: March 19, 2025 End: March 19, 2025 Teagan Bosch , D[employer]-C Referring Provider Active St art: March 19, 2025 End: March 19, 2025 Bailey Topete D[employer], D[employer]-C Attending physician Active Start: March 19, 2025 End: March 19, 2025 Team Status: Inactive Member Role/Relationship Status Dates Teagan Bosch , [employer]-C Primary care physician Active Start: April 13, 2025 End: April 13, 2025 Dr. Elijah West MD Attending physician Active Start: April 13, 2025 End: April 13, 2025 Dr. Elijah West MD Referring Provider Active S tart: April 13, 2025 End: April 13, 2025 Team Status: Inactive Member Role/Relationship Status Dates Dr. Todd Carbajal DO Referring Provider Active Start: April 27, 2025 End: April 27, 2025 Zeina Bran D[employer], DRI[employer]-C Attending physician Active Start: April 27, 2025 End: April 27, 2025 Teagan Bosch , [employer]-C Primary care physician Active Start: April 27, 2025 End: April 27, 2025 Team Status: Inactive Member Role/Relationship Status Dates Teagan Bosch , D[employer]-C Primary care physician Active Start: May 08, 2025 End: May 08, 2025 Zeina Bran NP, [employer] Attending physician Active Start: May 08, 2025 End: May 08, 2025 Zeina Bran D[employer], DRILL [employer]-C Referring Provider Active Start: May 08, 2025 End: May 08, 2025 Team Status: Active Member Role/Relationship Status Dates Teagan Bosch , D[employer]-C Primary care physician Active Start: May 12, 2025 Zeina Bran DRI[employer], DRILL [employer]-C Referring Provider Active Start: May 12, 2025 Zeina Bran D[employer], D[employer] Nurse Practitioner Active Start: May 12, 2025 Dr. Quinton Alfonso DO Attending physician Active Start: May 12, 2025 Team Status: Inactive Member Role/Relationship Status Dates Teagan Bosch , D[employer]-C Primary care physician Active Start: May 12, 2025 End: May 12, 2025 Teaganrafa Bosch , DRI[employer]-C Attending physician Active S tart: May 12, 2025 End: May 12, 2025 Teaganrafa Bosch , DRI[employer]-C Referring Provider Active St art: May 12, 2025 End: May 12, 2025 Team Status: Inactive Member Role/Relationship Status Dates Teaganrafa Bosch , D[employer]-C Primary care physician Active Start: May 28, 2025 End: May 28, 2025 Teagan Bosch , DRI[employer]-C Referring Provider Active St art: May 28, 2025 End: May 28, 2025 Zeina Bran DRI[employer], DRILL [employer]-C Attending physician Active Start: May 28, 2025 End: May 28, 2025 Team Status: Inactive Member Role/Relationship Status Dates Teaganrafa Bosch , D[employer]-C Primary care physician Active Start: June 19, 2025 End: June 19, 2025 Teagan Bosch , DRI[employer]-C Referring Provider Active St art: June 19, 2025 End: June 19, 2025 Bailey Topete DRI[employer], DRI[employer]-C Attending physician Active Start: June 19, 2025 End: June 19, 2025 Team Status: Inactive Member Role/Relationship Status Dates Teagan Hiro , D[employer]-C Primary care physician Active Start: June 22, 2025 End: June 22, 2025 Bailey Topete D[employer], DRILL [employer]-C Attending physician Active Start: June 22, 2025 End: June 22, 2025 Bailey Topete D[employer], DRI[employer]-C Referring Provider Active Start: June 22, 2025 End: June 22, 2025 Team Status: Active Member Role/Relationship Status Dates Teagan Bosch , D[employer]-C Primary care physician Active Start: June 22, 2025 Dr. Elijah West MD Attending physician Active Start: June 22, 2025 Team Status: Active Member Role/Relationship Status Dates Teagan Bosch , D[employer]-C Primary care physician Active Start: June 22, 2025 Bailey Topete D[employer], DRILL [employer]-C Attending physician Active Start: June 22, 2025 Team Status: Active Member Role/Relationship Status Dates Teagan Bosch , D[employer]-C Primary care physician Active Start: July 07, 2025 AMAYA Richard Attending physician Active Star t: July 07, 2025 AMAYA Richard Referring Provider Active Start : July 07, 2025 Team Status: Inactive Member Role/Relationship Status Dates Teagan Bosch , [employer]-C Primary care physician Active Start: July 13, 2025 End: July 13, 2025 Dr. Elijah West MD Attending physician Active Start: July 13, 2025 End: July 13, 2025 Team Status: Inactive Member Role/Relationship Status Dates Teagan Bosch , D[employer]-C Primary care physician Active Start: April 13, 2025 End: April 13, 2025 Dr. Elijah West MD Attending physician Active Start: April 13, 2025 End: April 13, 2025 Dr. Elijah West MD Referring Provider Active S tart: April 13, 2025 End: April 13, 2025 Team Status: Inactive Member Role/Relationship Status Dates Dr. Todd Carbajal DO Referring Provider Active Start: April 27, 2025 End: April 27, 2025 Zeina Bran D[employer], DRI[employer]-C Attending physician Active Start: April 27, 2025 End: April 27, 2025 Teagan Bosch D[employer]-C Primary care physician Active Start: April 27, 2025 End: April 27, 2025 Team Status: Inactive Member Role/Relationship Status Dates Teagan Bosch D[employer]-C Primary care physician Active Start: May 08, 2025 End: May 08, 2025 Zeina Bran D[employer], DRI[employer]-C Attending physician Active Start: May 08, 2025 End: May 08, 2025 Zeina Bran D[employer], DRI[employer]-C Referring Provider Active Start: May 08, 2025 End: May 08, 2025 Team Status: Active Member Role/Relationship Status Dates eTagan Bosch D[employer]-C Primary care physician Active Start: May 12, 2025 Zeina Bran DRI[employer], D[employer]-C Referring Provider Active Start: May 12, 2025 Zeina Bran D[employer], DRI[employer] Nurse Practitioner Active Start: May 12, 2025 Dr. Quinton Alfonso DO Attending physician Active Start: May 12, 2025 Team Status: Inactive Member Role/Relationship Status Dates Teaganrafa Bosch , D[employer]-C Primary care physician Active Start: May 12, 2025 End: May 12, 2025 Teaganrafa Bosch , D[employer]-C Attending physician Active S tart: May 12, 2025 End: May 12, 2025 Teagan Hiro , DRI[employer]-C Referring Provider Active St art: May 12, 2025 End: May 12, 2025 Team Status: Inactive Member Role/Relationship Status Dates Teagan Hiro , DRI[employer]-C Primary care physician Active Start: May 28, 2025 End: May 28, 2025 Teaganrafa Bosch , DRI[employer]-C Referring Provider Active St art: May 28, 2025 End: May 28, 2025 Zeina Bran DRI[employer], DRILL [employer]-C Attending physician Active Start: May 28, 2025 End: May 28, 2025 Team Status: Inactive Member Role/Relationship Status Dates Teaganrafa Bosch , D[employer]-C Primary care physician Active Start: June 19, 2025 End: June 19, 2025 Teagan Hiro , DRI[employer]-C Referring Provider Active St art: June 19, 2025 End: June 19, 2025 Bailey Topete DRI[employer], DRILL [employer]-C Attending physician Active Start: June 19, 2025 End: June 19, 2025 Team Status: Inactive Member Role/Relationship Status Dates Teagan Hiro , D[employer]-C Primary care physician Active Start: June 22, 2025 End: June 22, 2025 Bailey Topete DRI[employer], DRI[employer]-C Attending physician Active Start: June 22, 2025 End: June 22, 2025 Bailey Topete DRI[employer], DRI[employer]-C Referring Provider Active Start: June 22, 2025 End: June 22, 2025 Team Status: Active Member Role/Relationship Status Dates Teagan Hiro , D[employer]-C Primary care physician Active Start: June 22, 2025 Dr. Elijah West MD Attending physician Active Start: June 22, 2025 Team Status: Active Member Role/Relationship Status Dates Teagan Hiro , DRI[employer]-C Primary care physician Active Start: June 22, 2025 Bailey Topete D[employer]LL [employer], [employer] [employer] Attending physician Active Start: June 22, 2025 Team Status: Inactive Member Role/Relationship Status Dates Teagan Bosch , [employer] Primary care physician Active Start: July 13, 2025 End: July 13, 2025 Dr. Elijah West MD Attending physician Active Start: July 13, 2025 End: July 13, 2025 Team Status: Active Member Role/Relationship Status Dates Teagan Hiro , [employer] Primary care physician Active Start: July 17, 2025 AMAYA Richard Attending physician Active Star t: July 17, 2025 AMAYA Richard Referring Provider Active Start : July 17, 2025 Team Status: Inactive Member Role/Relationship Status Dates Teagan Hiro , [employer] Primary care physician Active Start: July 20, 2025 End: July 20, 2025 Teagan Hiro , [employer]-C Referring Provider Active St art: July 20, 2025 End: July 20, 2025 Deonna Hernandez Attending physician Active Start: July 20, 2025 End: July 20, 2025 Team Status: Inactive Member Role/Relationship Status Dates Teagan Hiro , [employer] Primary care physician Active Start: July 20, 2025 End: July 20, 2025 Teagan Hiro , [employer]-C Referring Provider Active St art: July 20, 2025 End: July 20, 2025 Bailey Topete NP, [employer] Attending physician Active Start: July 20, 2025 End: July 20, 2025 Team Status: Inactive Member Role/Relationship Status Dates Teagan Hiro , [employer] Primary care physician Active Start: July 22, 2025 End: July 22, 2025 Dr. Cj Dumont MD Attending physician Active Start: July 22, 2025 End: July 22, 2025 Dr. [facility] Active Start: July 22, 2025 End: July 22, 2025 Team Status: Active Member Role/Relationship Status Dates Teagan Bosch , [employer] Primary care physician Active Start: July 28, 2025 Drake FARRIS MD Attending physician Active Start: July 28, 2025 Team Status: Inactive Member Role/Relationship Status Dates Teagan Hiro , [employer] Primary care physician Active Start: July 30, 2025 End: July 30, 2025 Maura Maki NP, [employer] Attending physician Active Start: July 30, 2025 End: July 30, 2025 Maura Maki NP, [employer]-C Referring Provider Active Start: July 30, 2025 End: July 30, 2025 Team Status: Active Member Role/Relationship Status Dates Teagan Bosch [employer] Primary care physician Active Start: July 28, 2025 Drake FARRIS MD Attending physician Active Start: July 28, 2025 Drake FARRIS MD Referring Provider Active Start: July 28, 2025 Team Status: Active Member Role/Relationship Status Dates Teagan Bosch [employer] Primary care physician Active Start: July 31, 2025 Maura FARRIS, [employer]-C Attending physician Active Start: July 31, 2025 Team Status: Inactive Member Role/Relationship Status Dates Teagan Bosch [employer] Primary care physician Active Start: August 03, 2025 End: August 03, 2025 Dr. Elijah West MD Attending physician Active Start: August 03, 2025 End: August 03, 2025 Dr. Elijah West MD Referring Provider Active S tart: August 03, 2025 End: August 03, 2025 Team Status: Inactive Member Role/Relationship Status Dates Dr. Todd Carbajal DO Referring Provider Active Start: April 27, 2025 End: April 27, 2025 Zeina Bran D[employer], [employer] Attending physician Active Start: April 27, 2025 End: April 27, 2025 Teagan Bosch [employer] Primary care physician Active Start: April 27, 2025 End: April 27, 2025 Team Status: Inactive Member Role/Relationship Status Dates Teagan Bosch [employer] Primary care physician Active Start: May 08, 2025 End: May 08, 2025 Zeina Bran D[employer], [employer] Attending physician Active Start: May 08, 2025 End: May 08, 2025 Zeina Bran D[employer], [employer] Referring Provider Active Start: May 08, 2025 End: May 08, 2025 Team Status: Active Member Role/Relationship Status Dates Teagan Bosch [employer] Primary care physician Active Start: May 12, 2025 Zeina Bran D[employer], [employer] Referring Provider Active Start: May 12, 2025 Zeina Bran D[employer], [employer] Nurse Practitioner Active Start: May 12, 2025 Dr. Quinton Alfonso DO Attending physician Active Start: May 12, 2025 Team Status: Inactive Member Role/Relationship Status Dates Teaganrafa Bosch , [employer] Primary care physician Active Start: May 12, 2025 End: May 12, 2025 Teaganrafa Bosch , [employer]-C Attending physician Active S tart: May 12, 2025 End: May 12, 2025 Teagan Hiro , [employer]-C Referring Provider Active St art: May 12, 2025 End: May 12, 2025 Team Status: Inactive Member Role/Relationship Status Dates Teagan Hiro , [employer] Primary care physician Active Start: May 28, 2025 End: May 28, 2025 Teaganrafa Bosch , [employer]-C Referring Provider Active St art: May 28, 2025 End: May 28, 2025 Zeina Brna D[employer], D[employer] Attending physician Active Start: May 28, 2025 End: May 28, 2025 Team Status: Inactive Member Role/Relationship Status Dates Teaganrafa Bosch , [employer] Primary care physician Active Start: June 19, 2025 End: June 19, 2025 Teagan Hiro , [employer]-C Referring Provider Active St art: June 19, 2025 End: June 19, 2025 Bailey Topete D[employer], D[employer] Attending physician Active Start: June 19, 2025 End: June 19, 2025 Team Status: Inactive Member Role/Relationship Status Dates Teagan Hiro , [employer] Primary care physician Active Start: June 22, 2025 End: June 22, 2025 Bailey Topete D[employer], D[employer] Attending physician Active Start: June 22, 2025 End: June 22, 2025 Bailey Topete D[employer], [employer] Referring Provider Active Start: June 22, 2025 End: June 22, 2025 Team Status: Active Member Role/Relationship Status Dates Teaganrafa Bosch , [employer] Primary care physician Active Start: June 22, 2025 Dr. Elijah West MD Attending physician Active Start: June 22, 2025 Team Status: Active Member Role/Relationship Status Dates Teagan Hiro , [employer] Primary care physician Active Start: June 22, 2025 Bailey Topete NP, [employer] Attending physician Active Start: June 22, 2025 Team Status: Inactive Member Role/Relationship Status Dates Teagan Hiro , [employer] Primary care physician Active Start: July 13, 2025 End: July 13, 2025 Dr. Elijah West MD Attending physician Active Start: July 13, 2025 End: July 13, 2025 Dr. Elijah West MD Referring Provider Active S tart: July 13, 2025 End: July 13, 2025 Team Status: Active Member Role/Relationship Status Dates Teagan Bosch , [employer] Primary care physician Active Start: July 17, 2025 AMAYA Richard Attending physician Active Star t: July 17, 2025 AMAYA Richard Referring Provider Active Start : July 17, 2025 Team Status: Inactive Member Role/Relationship Status Dates Teagan Bosch , [employer] Primary care physician Active Start: July 20, 2025 End: July 20, 2025 Dr. Elijah West MD Attending physician Active Start: July 20, 2025 End: July 20, 2025 Dr. Elijah West MD Referring Provider Active S tart: July 20, 2025 End: July 20, 2025 Team Status: Inactive Member Role/Relationship Status Dates Teagan Bosch , [employer] Primary care physician Active Start: July 20, 2025 End: July 20, 2025 Teagan Bosch , [employer]-C Referring Provider Active St art: July 20, 2025 End: July 20, 2025 Bailey Topete NP, [employer] Attending physician Active Start: July 20, 2025 End: July 20, 2025 Team Status: Inactive Member Role/Relationship Status Dates Teagan Bosch , [employer] Primary care physician Active Start: July 22, 2025 End: July 22, 2025 Dr. Cj Dumont MD Attending physician Active Start: July 22, 2025 End: July 22, 2025 Dr. [facility] Active Start: July 22, 2025 End: July 22, 2025 Team Status: Active Member Role/Relationship Status Dates Teagan Bosch [employer] Primary care physician Active Start: July 28, 2025 Drake FARRIS MD Attending physician Active Start: July 28, 2025 Drake FARRIS MD Referring Provider Active Start: July 28, 2025 Team Status: Inactive Member Role/Relationship Status Dates Teagan Bosch , [employer] Primary care physician Active Start: July 28, 2025 End: July 28, 2025 Dr. Drake Farah MD Attending physician Active Start: July 28, 2025 End: July 28, 2025 Team Status: Inactive Member Role/Relationship Status Dates Teagan Hiro , [employer] Primary care physician Active Start: August 10, 2025 End: August 10, 2025 Dr. Elijah West MD Attending physician Active Start: August 10, 2025 End: August 10, 2025 Team Status: Inactive Member Role/Relationship Status Dates Teagan Hiro , [employer] Primary care physician Active Start: August 10, 2025 End: August 10, 2025 Teagan Bosch , [employer]-C Referring Provider Active St art: August 10, 2025 End: August 10, 2025 Deonna Hernandez Attending physician Active Start: August 10, 2025 End: August 10, 2025 Team Status: Inactive Member Role/Relationship Status Dates Teagan Bosch , [employer] Primary care physician Active Start: May 08, 2025 End: May 08, 2025 Zeina Bran D[employer], [employer] Attending physician Active Start: May 08, 2025 End: May 08, 2025 Zeina Bran D[employer], [employer] Referring Provider Active Start: May 08, 2025 End: May 08, 2025 Team Status: Active Member Role/Relationship Status Dates Teaagn Bosch , [employer] Primary care physician Active Start: May 12, 2025 Zeina Bran D[employer], [employer] Referring Provider Active Start: May 12, 2025 Zeina Bran D[employer], D[employer] Nurse Practitioner Active Start: May 12, 2025 Dr. Quinton Alfonso DO Attending physician Active Start: May 12, 2025 Team Status: Inactive Member Role/Relationship Status Dates Teagan Bosch , [employer] Primary care physician Active Start: May 12, 2025 End: May 12, 2025 Teagan Bosch , [employer]-C Attending physician Active S tart: May 12, 2025 End: May 12, 2025 Teagan Bosch , [employer]-C Referring Provider Active St art: May 12, 2025 End: May 12, 2025 Team Status: Inactive Member Role/Relationship Status Dates Teaganrafa Bosch , [employer] Primary care physician Active Start: May 28, 2025 End: May 28, 2025 Teagan Bosch , [employer]-C Referring Provider Active St art: May 28, 2025 End: May 28, 2025 Zeina Bran D[employer], D[employer] Attending physician Active Start: May 28, 2025 End: May 28, 2025 Team Status: Inactive Member Role/Relationship Status Dates Teaganrafa Bosch , [employer] Primary care physician Active Start: June 19, 2025 End: June 19, 2025 Teagan Bosch , D[employer]-C Referring Provider Active St art: June 19, 2025 End: June 19, 2025 Bailey Topete D[employer], D[employer] Attending physician Active Start: June 19, 2025 End: June 19, 2025 Team Status: Inactive Member Role/Relationship Status Dates Teagan Bosch , [employer] Primary care physician Active Start: June 22, 2025 End: June 22, 2025 Bailey Topete D[employer], D[employer] Attending physician Active Start: June 22, 2025 End: June 22, 2025 Bailey Topete D[employer], D[employer]-C Referring Provider Active Start: June 22, 2025 End: June 22, 2025 Team Status: Active Member Role/Relationship Status Dates Teagan Bosch , [employer] Primary care physician Active Start: June 22, 2025 Dr. Elijah West MD Attending physician Active Start: June 22, 2025 Team Status: Active Member Role/Relationship Status Dates Teaganrafa Bosch , [employer]-C Primary care physician Active Start: June 22, 2025 Bailey Topete NP, [employer]-C Attending physician Active Start: June 22, 2025 Team Status: Inactive Member Role/Relationship Status Dates Teagan Bosch , [employer] Primary care physician Active Start: July 13, 2025 End: July 13, 2025 Dr. Elijah West MD Attending physician Active Start: July 13, 2025 End: July 13, 2025 Dr. Elijah West MD Referring Provider Active S tart: July 13, 2025 End: July 13, 2025 Team Status: Active Member Role/Relationship Status Dates Teagan Bosch , [employer] Primary care physician Active Start: July 17, 2025 AMAYA Richard Attending physician Active Star t: July 17, 2025 AMAYA Richard Referring Provider Active Start : July 17, 2025 Team Status: Inactive Member Role/Relationship Status Dates Teagan Bosch , [employer] Primary care physician Active Start: July 20, 2025 End: July 20, 2025 Dr. Elijah West MD Attending physician Active Start: July 20, 2025 End: July 20, 2025 Dr. Elijah West MD Referring Provider Active S tart: July 20, 2025 End: July 20, 2025 Team Status: Inactive Member Role/Relationship Status Dates Teagan Bosch , [employer]-C Primary care physician Active Start: July 20, 2025 End: July 20, 2025 Teagan Bosch D[employer]-C Referring Provider Active St art: July 20, 2025 End: July 20, 2025 Bailey Topete D[employer], D[employer]-C Attending physician Active Start: July 20, 2025 End: July 20, 2025 Team Status: Inactive Member Role/Relationship Status Dates Teagan Bosch , [employer]-C Primary care physician Active Start: July 22, 2025 End: July 22, 2025 Dr. Cj Dumont MD Attending physician Active Start: July 22, 2025 End: July 22, 2025 Dr. Cj [facility] Active Start: July 22, 2025 End: July 22, 2025 Team Status: Active Member Role/Relationship Status Dates Teagan Bosch , [employer]-C Primary care physician Active Start: July 28, 2025 Drake FARRIS MD Attending physician Active Start: July 28, 2025 Drake FARRIS MD Referring Provider Active Start: July 28, 2025 Team Status: Inactive Member Role/Relationship Status Dates Teagan Bosch [employer] Primary care physician Active Start: July 28, 2025 End: July 28, 2025 Dr. Drake Farah MD Attending physician Active Start: July 28, 2025 End: July 28, 2025 Team Status: Inactive Member Role/Relationship Status Dates Teagan oBsch D[employer]-C Primary care physician Active Start: July 30, 2025 End: July 30, 2025 Maura Maki DRI[employer], DRI[employer]-C Attending physician Active Start: July 30, 2025 End: July 30, 2025 Maura Maki D[employer], DRI[employer]-C Referring Provider Active Start: July 30, 2025 End: July 30, 2025 Team Status: Active Member Role/Relationship Status Dates Teagan Bosch NP-C Primary care physician Active Start: July 31, 2025 FIFI Andrade Attending physician Active Start: July 31, 2025 Team Status: Inactive Member Role/Relationship Status Dates Teagan Bosch D[employer]-C Primary care physician Active Start: August 03, 2025 End: August 03, 2025 Dr. Elijah West MD Attending physician Active Start: August 03, 2025 End: August 03, 2025 Dr. Elijah West MD Referring Provider Active S tart: August 03, 2025 End: August 03, 2025 Team Status: Inactive Member Role/Relationship Status Dates Teagan Bosch NP-Apurva Primary care physician Active Start: August 10, 2025 End: August 10, 2025 Dr. Elijah West MD Attending physician Active Start: August 10, 2025 End: August 10, 2025 Team Status: Inactive Member Role/Relationship Status Dates Teagan Bosch NP-C Primary care physician Active Start: August 10, 2025 End: August 10, 2025 FIFI Lu Referring Provider Active St art: August 10, 2025 End: August 10, 2025 Deonna Hernandez Attending physician Active Start: August 10, 2025 End: August 10, 2025 INFORMATION SOURCE (unrecogn ized section and content) DATE CREATED AUTHOR 08/14/2025 [facility] DATE CREATED AUTHOR AUTHOR'S ORGANIZ ATION 08/18/2025 [facility] DATE CREATED AUTHOR AUTHOR'S ORGANIZ ATION 09/07/2025 [facility] FOR RECORDS PERTAINING TO PATIENTS WHO ARE OR HAVE BEEN ENROLLED IN A CHEMICAL DEPENDENCY/SUBSTANCEABUSE PROGRAM, SOME INFORMATION MAY BE OMITTED. This clinical summary was aggregated from multiple sources. Caution should be exercised in using it in the provision of clinical care. This summary normalizes information from multiple sources, and as a consequence, information in this document may materially change the coding, format and clinical context of patient data. In addition, data may be omitted in some cases. CLINICAL DECISIONS SHOULD BE BASED ON THE PRIMARY CLINICAL RECORDS. [employer] provides no warranty or guarantee of the accuracy or completeness of information in this document.
[2025-10-09 17:36] LABS: Hematocrit 36.5 % (37-47); Hemoglobin 11.2 g/dL (12.0-15.0); Immature Granulocytes Count 0.080 X10^3/uL (0.0-0.0); Mean Corp Hgb Conc 30.7 g/dL (32-36); Mean Corpuscular Volume 99.5 fL (81-99); Mean Platelet Vol. 10.7 fl (6.2-12.0); NRBC Flagged by Analyzer 0 % (0-5); Platelet Count 152 K/mm3 (150-450); RBC Distribution Width CV 14.5 % (11.6-14.6); RBC Distribution Width SD 52.4 fl (35.1-43.9); Red Blood Count 3.67 M/mm3 (4.2-5.4); White Blood Count 6.8 K/mm3 (4.4-11.0)
[2025-10-09 17:53] LABS: Anion Gap 12 (5-15); BUN 19 mg/dL (4-19); BUN/Creat Ratio 19.2 RATIO (10-20); Calcium,Total 9.6 mg/dL (7.6-11.0); Carbon Dioxide 25.3 mmol/L (21.0-32.0); Chloride 100 mmol/L (98-108); Glucose 98 mg/dL (70-99); Potassium 4.3 mmol/L (3.3-5.1); Pro- Brain NATRIURETIC PEPTIDE 1606 pg/mL (<=1800)
== END | disposition home or self-care (01) ==
LOC: MTLAB 15:56
PROVIDERS: PCP Nurse Practitioner Family; Referring Provider Nurse Practitioner Gerontology; Visit Provider Nurse Practitioner Gerontology
DX: R06.09 Other forms of dyspnea (principal)
CPT/HCPCS: 36415; 80048; 83880; 85025